=== PATIENT | female | born 1975 | race Caucasian/White ===

== ENCOUNTER → 2019-09-01 | Outpatient (CLI) | payer OTHER, SELFPAY ==
[2019-07-14 11:18] VITALS: BMI 34.7
[2019-09-01 13:05] LABS: T4 Free Direct 1.35 ng/dL (0.76-1.46); Thyroid Stim Hormone (TSH) 0.14 uIU/mL (0.358-3.74)
== END | disposition home or self-care (01) ==
LOC: LAB 12:03
PROVIDERS: PCP Family Medicine; Referring Provider Internal Medicine Endocrinology, Diabetes & Metabolism; Visit Provider Internal Medicine Endocrinology, Diabetes & Metabolism
DX: E89.0 Postprocedural hypothyroidism (principal)
CPT/HCPCS: 36415; 84439; 84443

== ENCOUNTER → 2021-11-14 | Outpatient (CLI) | payer MEDICAID, SELFPAY ==
--- NOTE | 2021-11-14 14:32 | BI_ITS ---
MAMMOGRAPHY - UNILATERAL DIAGNOSTIC: LEFT BREAST REASON FOR EXAM: Female, 46 years old. ABN MAMM PERTINENT HISTORY: Non-contributory. TECHNIQUE: Digital examination. Mediolateral oblique (MLO) and craniocaudad (CC) views of the breast were obtained. CAD: CAD was not performed on this study. COMPARISON: 11/09/2021, 11/01/2020 FINDINGS: Breast Composition: The breasts are heterogeneously dense, which may obscure small masses. Focal compression views do not confirm a mass in the upper outer quadrant left breast most consistent with normal breast parenchyma. No other significant abnormalities are identified. BI/DIAG MAMM W/CAD, UNILAT IMPRESSION: Stable unilateral diagnostic mammogram. ASSESSMENT CATEGORY: BIRADS Category 1: Negative. A letter regarding these results will be sent to the patient by the facility within 30 days. FOLLOW-UP RECOMMENDATION: Yearly follow-up mammogram recommended. (A) Approximately 10% of breast cancers are not detected by mammography. A normal mammogram should not delay biopsy of a clinically suspicious abnormality. Electronically Signed: Ruddy Carr MD at 15:06 EDT ,
== END | disposition home or self-care (01) ==
PROVIDERS: Visit Provider Obstetrics & Gynecology
DX: R92.2 Inconclusive mammogram (principal)
CPT/HCPCS: 77065

== ENCOUNTER 2024-08-29 13:44 | Inpatient (IN) | payer MEDICAID, SELFPAY ==
[2024-08-29] VITALS (16 sets, daily range): BP systolic 107–160; BP diastolic 70–117; PULSE 84–138; RESP 16–20; TEMP 36.2–39.1; O2SAT 94–100; BMI 36.9; BMI 38.1
--- NOTE | 2024-08-29 15:09 | CT_ITS ---
PROCEDURE: ABDOMEN/PELVIS W IV CONT ONLY REASON FOR EXAM: Fever. Generalized body aches. Patient is not feeling. TECHNIQUE: Abdomen and pelvis CT with intravenous contrast. IV CONTRAST: COMPARISON: None. FINDINGS: Lung bases: Clear Liver: Diffuse fatty infiltration. Gallbladder: Gallstones. Mildly dilated central intrahepatic biliary ducts. Question gallstone in the neck of the gallbladder. Correlation with the ultrasound of the gallbladder recommended. Spleen: Unremarkable. Pancreas: Unremarkable. Adrenals: Unremarkable. Kidneys: Unremarkable. Bladder: Unremarkable. Reproductive Organs: Small follicles are seen in both ovaries. A nabothian cyst is seen in the uterine cervix. Bowel: Unremarkable. Appendix: Normal. Lymph nodes: No suspicious lymph node enlargement. Vasculature: Major vascular structures are unremarkable. Peritoneum / Retroperitoneum: No ascites. No free air. Bones: Unremarkable. CT/Abdomen/Pelvis W IV Cont ONLY IMPRESSION: Gallstones. Possible gallstone in the neck of the gallbladder. Mild degree of central intrahepatic biliary ductal dilatation. Correlation wit h ultrasound recommended for further evaluation. Fatty infiltration of the liver. One or more dose reduction techniques were used (e.g., Automated exposure contr ol, adjustment of the mA and/or kV according to patient size, use of iterative reconstruction technique). Reading Location: [facility]
--- NOTE | 2024-08-29 15:12 | EDS_ITS ---
HPI History of Present Illness Chief Complaint: General Illness Informant: patient Narrative Narrative: Sent here after seeing PCP office. Patient reports beginning of illness 2 weeks ago grandson diagnosed RSV. She has had sinus congestion. Symptoms of upper r espiratory were started to improve. This past Sunday increased severe pain across her upper abdomen. Nausea when she eats. No vomiting no diarrhea no urinary symptoms however states recent urines a lot more dark in color she is taking less p.o. intake. Seeing her doctor today states had a fever tachycardic. Started having a cough. Still has upper abdominal pain that goes to her back. Denies alcohol history. Denies any abdominal surgeries. Father had pancreatic cancer. Allergies to chlorhexidine and penicillin. Prior similar symptoms: No PFSH PFSH Medical History (Updated 08/29/24 @ 23:[address] Scot Gonzalez DO) PCOS (polycystic ovarian syndrome) Migraine headache Home Medications ?Medication ?Instructions ?Recorded ?Last Taken ?Type thyroid (pork) 60 mg tablet 60 mg PO DAILY 08/23/20 History ([place] Thyroid) cholecalciferol (vitamin D3) 1 tab PO DAILY 08/29/24 U nknown History levothyroxine 25 mcg tablet 25 mcg PO SUTUWETHSA 08/2908/29/24 History magnesium citrate 125 mg capsule 250 mg PO QHS 5 Unknown History metformin 500 mg tablet 500 mg PO DAILY 08/29/24 Unk nown History Allergy/AdvReac Type Severity Reaction Status Date / Time Penicillins Allergy Intermediate Hives Verified 08/30/20 13:09 chlorhexidine Allergy Mild Rash Verified 08/30/20 13:09 Family History Other Cancer Diabetes Heart disease Hypertension Surgical History History of lobectomy of thyroid Social History household members: spouse housing: house Smoking Status: Never smoker ROS ROS ED Constitutional Constitutional ED: Reports fever(s); Denies chills or sweats ENT ENT ED: Denies sore throat Cardiovascular Cardiovascular: Denies chest pain, leg edema, palpitations or racing heartbeat Respiratory/Chest Respiratory/Chest: Reports cough; Denies dyspnea or dyspnea on exertion Gastrointestinal Gastrointestinal: Reports abdominal pain and nausea; Denies diarrhea or vomiting Genitourinary Genitourinary ED: Denies dysuria, hematuria or urinary frequency Musculoskeletal Musculoskeletal: Reports back pain; Denies extremity pain or neck pain Integumentary Denies rash or wounds Neurologic Neurologic: Denies headache(s), paresthesias or weakness EXAM Physical Exam Const Vital Signs: 08/29/24 13:45 08/29/24 15:31 08/29/24 17:44 Temperature 102.4 F H Temperature Source Temporal Pulse Rate 138 H 100 Respiratory Rate 17 Respiratory Effort Normal Non-Labored Respiratory Pattern Normal Blood Pressure 160/93 H 118/79 Blood Pressure Mean 115 92 Blood Pressure Source Blood Pressure Position Blood Pressure Location Pulse Ox 100 94 Oxygen Delivery Method Room Air 08/29/24 18:21 Temperature Temperature Source Pulse Rate 106 H Respiratory Rate 16 Respiratory Effort Respiratory Pattern Blood Pressure 111/78 Blood Pressure Mean 89 Blood Pressure Source Monitor Blood Pressure Position Supine Blood Pressure Location Left Arm Pulse Ox 94 Oxygen Delivery Method Room Air Positive well nourished and well developed Constitutional Narrative: Nontoxic fatigued General Appearance ED: well developed HEENT Reports dry mucous membranes normocephalic and atraumatic Mouth ED: Yes dry mucous membranes Mouth: dry mucous membranes Eyes General Eye ED: Yes normal appearance of both eyes Neck full ROM Chest Wall Chest: Negative for tenderness Resp normal respiratory effort and normal air movement Effort and Inspection: symmetric chest movement; Negative for respiratory distress Cardio regular rhythm and no murmurs Rate: tachycardic Peripheral Pulses: pulses 2+ throughout GI GI Narrative: Tender palpation epigastrium mild tenderness right upper quadrant. There is no guarding or rebound. Negative McBurney's. No lower abdominal tenderness. Palpation: Negative for guarding or rebound tenderness present Extremity normal to inspection General Extremety ED: Negative for edema or tenderness General Extremity: Negative for edema Neuro oriented x3 and no sensory deficits noted Sensorium / Orientation: awake and alert Skin no rashes or lesions noted and no wounds MDM MDM MDM Narrative Medical decision making narrative: Interventions / MDM: Differential diagnosis: Choledocholithiasis, symptomatic cholelithiasis, abdominal pain, RSV Diagnosis considered but do not suspect: Pneumonia however chest x-ray negative. My EKG interpretation: Sinus rate of 123, [place] pattern noted in V1 V2. No T wave changes. Imaging independently reviewed and interpreted by myself: 2 view chest x-ray: No acute process. CT abdomen pelvis: Gallstones concern in the neck with intrahepatic duct dilatation. RUQ US: Gallstones, common bile duct 8 mm. No cholecystitis. External documents reviewed: N/A Test considered but not ordered:N/A ED course: Patient febrile tachycardic. More symptoms upper abdomen. Slight cough. Nursing protocol obtain nasal swabs which she was RSV positive. However concerning symptoms reviewed abdominal pain today. Sepsis labs were ordered. Chest x-ray CT abdomen. Ordered for morphine Zofran fluids along with Tylenol. 1620: White count 13 elevated liver enzymes with elevated bilirubin. Lactic acid 1.6. Lipase normal. CT scan gallstones with 1 in the neck. Concerns for central intrahepatic biliary duct dilatation. Gallbladder ultrasound ordered for further evaluation. She fever with obstructive process white count 13.5, allergic to penicillin Levaquin and Flagyl IV started for coverage. Will plan for admission. 1715: Ultrasound reviewed by myself concerns for 8 and half millimeter duct dilatation there is gallstones. I did speak with GI Dr. Waller, concerns with her fever of cholangitis choledocholithiasis. Will keep her n.p.o. he will evaluate the patient for possible ERCP tonight. In addition I spoke with general surgeon Dr. Burgos made aware of patient's history and findings and GI plans. Will speak with hospitalist. Patient's pain is controlled at this time. Urine did note nitrites leukocytes and white cells 5-10 per urine culture p ending. She only reports dark urine no dysuria or frequency. Discussed with Dr. La for admission. Re-evaluation: stable Disposition discussed with patient/family/significant other: Patient Case discussed with consulting clinician: Gastroenterology, general surgery, hospitalist This note was generated with Communicado dictation software. It may contain incorrect words, spelling, and punctuation that were not noted in checking the note before signing. Lab Data Attestation: I reviewed the patient's lab results. Labs: Laboratory Results - last 24 hr 08/29/24 08/29/24 15:11 16:26 WBC 13.5 H RBC 5.33 Hgb 14.6 Hct 44.1 MCV 82.7 MCH 27.4 MCHC 33.1 RDW Std Deviation 38.4 RDW Coeff of Fabio 12.8 Plt Count 202 MPV 10.7 Immature Gran % (Auto) 0.600 Neut % (Auto) 93.9 H Lymph % (Auto) 2.0 L [place] % (Auto) 3.3 Eos % (Auto) 0.0 Baso % (Auto) 0.2 Absolute Neuts (auto) 12.6 H Absolute Lymphs (auto) 0.27 L Nucleated RBC % 0 PT 13.5 INR 1.0 APTT 27.9 Sodium 134 Potassium 3.9 Chloride 99 Carbon Dioxide 20.2 L Anion Gap 14 BUN 8 Creatinine 0.74 Estim Creat Clear Calc 95.78 Est GFR (MDRD) Non-Af 99 BUN/Creatinine Ratio 10.3 Glucose 175 H Lactic Acid 1.6 Calcium 9.0 Total Bilirubin 4.42 H Direct Bilirubin 2.99 H AST 250 H ALT 628 H Alkaline Phosphatase 266 H Total Protein 7.4 Albumin 4.3 Globulin 3.2 Lipase 13 Urine Color Straw Urine Clarity Clear Urine pH 6.0 Ur Specific [place] 1.010 Urine Protein 30 H Urine Glucose (UA) Normal Urine Ketones 50 H Urine Occult Blood 25 H Urine Nitrite Positive H Urine Bilirubin 6 H Urine Urobilinogen 8 H Ur Leukocyte Esterase 25 H Urine RBC 0-5 SEEN Urine WBC 5-10 SEEN Ur Squamous Epith Cells 0-5 SEEN Urine Bacteria 1+ Urine Mucus RARE Urine Test Negative Radiography Diagnostic Testing: Clinical Impression(s) from Imaging Studies Abdomen/Pelvis CT 08/29/24 15:09 IMPRESSION: Gallstones. Possible gallstone in the neck of the gallbladder. Mild degree of central intrahepatic biliary ductal dilatation. Correlation with ultrasound recommended for further evaluation. Fatty infiltration of the liver. One or more dose reduction techniques were used (e.g., Automated exposure control, adjustment of the mA and/or kV according to patient size, use of iterative reconstruction technique). Reading Location: [id number] Chest X-Ray 08/29/24 16:00 IMPRESSION: No acute abnormality is seen. Reading Location: [id number] Gallbladder Ultrasound 08/29/24 16:08 IMPRESSION: 1. Distended gallbladder with cholelithiasis. No pericholecystic fluid or significant wall thickening. Mildly dilated common bile duct measuring 8 mm. Consider MRCP for further assessment if indicated. 2. Hepatic steatosis. 3. Nonspecific hypoechoic lesion in the right hepatic lobe, not a simple cyst. Recommend further evaluation with nonemergent contrast-enhanced MRI. Reading Location[facility] Discharge Plan Dx/Rx/DC Orders Clinical Impression: Ascending cholangitis, Obstructive jaundice, Cholelithiasis, Choledocholithiasis Disposition Disposition: Acute Care Hospital [facility] Discharge Date/Time: 08/29/24 21:07
[2024-08-29 15:32] LABS: Absolute Lymphocyte Count 0.27 X10^3/uL (0.83-4.51); Absolute Neutrophil Count 12.6 X10^3/uL (2.0-7.7); Basophil# 0.03 X10^3/uL; Basophil% 0.2 % (0-1); Hematocrit 44.1 % (37-47); Hemoglobin 14.6 g/dL (12.0-15.0); Lymphocyte # 0.27 X10^3/ul (0.83-4.51); Mean Corp Hgb Conc 33.1 g/dL (32-36); Mean Corpuscular Hgb 27.4 pg (27.0-32.0); Mean Corpuscular Volume 82.7 fL (81-99); Mean Platelet Vol. 10.7 fl (6.2-12.0); Monocyte# 0.45 X10^3/uL; Monocyte% 3.3 % (0-10); NRBC Flagged by Analyzer 0 % (0-5); Neutrophil # 12.63 X10^3/uL (2.7-7.7); Neutrophil % 93.9 % (47-70); POSITIVE DIFFERENTIAL YES; Platelet Count 202 K/mm3 (150-450); RBC Distribution Width CV 12.8 % (11.6-14.6); RBC Distribution Width SD 38.4 fl (35.1-43.9); Red Blood Count 5.33 M/mm3 (4.2-5.4); White Blood Count 13.5 K/mm3 (4.4-11.0)
[2024-08-29] MEDS: Acetaminophen 500 MG Tablet 1000 MG PO (15:35)
[2024-08-29] MEDS: 0.9% Normal Saline (1000mL) 1,000 ML 999 ML IV (15:35)
[2024-08-29] MEDS: Morphine 4 MG/ML Syringe IV (15:36)
[2024-08-29] MEDS: Ondansetron 4 MG/2 ML Vial IV (15:36)
[2024-08-29 15:55] LABS: AST(SGOT) 250 U/L (<=31); Alanine Aminotransfer ALT/SGPT 628 U/L (<=34); Albumin, Serum 4.3 g/dL (3.5-5.0); Alkaline Phosphatase 266 U/L (35-104); Anion Gap 14 (5-15); BUN 8 mg/dL (4-19); BUN/Creat Ratio 10.3 RATIO (10-20); Bilirubin, Direct 2.99 mg/dL (0.00-0.30); Carbon Dioxide 20.2 mmol/L (21.0-32.0); Chloride 99 mmol/L (98-108); Creatinine, Serum 0.74 mg/dL (0.70-1.20); EST Glomerular Filtration Rate 99 (>60); Estimated Creatinine Clearance 95.78 ml/min (50-250); Globulin 3.2 g/dL (2.2-4.2); Glucose 175 mg/dL (70-99); Lactic Acid 1.6 mmol/L (0.0-2.0); Lipase 13 U/L (13-75); Potassium 3.9 mmol/L (3.3-5.1); Protein, Total 7.4 g/dL (5.9-8.4); Sodium Level 134 mmol/L (133-145); Total Bilirubin 4.42 mg/dL (0.00-1.30)
--- NOTE | 2024-08-29 16:00 | RAD_ITS ---
PROCEDURE: CHEST PA AND LATERAL REASON FOR EXAM: Cough. TECHNIQUE: Frontal and lateral views of the chest. COMPARISON: None. FINDINGS: The heart is nonenlarged. The lungs are clear. The bones are unremarkable. RAD/Chest PA and Lateral IMPRESSION: No acute abnormality is seen. Reading Location: [id number]
--- NOTE | 2024-08-29 16:08 | US_ITS ---
PROCEDURE: Right upper quadrant ultrasound REASON FOR EXAM: Pain COMPARISON: Same day CT FINDINGS: Mildly distended gallbladder. Diffuse increased hepatic echogenicity most consistent with steatosis. Ovoid hypoechoic lesion in the right hepatic lobe measuring up to 2.7 cm. Distended gallbladder with multiple calculi. No significant gallbladder wall thickening or pericholecystic fluid. Mildly dilated common bile duct measuring 8 mm. Visualized portions of the pancreas and right kidney are within normal limits. US/Gallbladder IMPRESSION: 1. Distended gallbladder with cholelithiasis. No pericholecystic fluid or sign ificant wall thickening. Mildly dilated common bile duct measuring 8 mm. Consider MRCP for further assessment if indicated. 2. Hepatic steatosis. 3. Nonspecific hypoechoic lesion in the right hepatic lobe, not a simple cyst. Recommend further evaluation with nonemergent contrast-enhanced MRI. Reading Location: [facility]
[2024-08-29 16:09] LABS: Partial Thromboplast Time 27.9 Seconds (24.1-36.2); Prothrombin Time (Protime)PT. 13.5 SECONDS (11.7-14.9)
[2024-08-29 16:41] LABS: Color, Urine Straw (Yellow); Glucose, Dipstick Normal (Normal); Ketone-Dipstick 50 mg/dl (Negative); Leukocyte Esterase-Dipstick 25 /ul (Negative); Nitrite-Dipstick Positive (Negative); Occult Blood-Urine 25 /ul (Negative); Protein-Dipstick 30 mg/dl (Negative); Urine Clarity Clear (Clear); Urine Urobilinogen 8 mg/dl (Normal)
[2024-08-29 16:44] LABS: Urine Bilirubin Dipstick 6 mg/dL (Negative)
[2024-08-29] MEDS: metroNIDAZOLE 500 MG/100 ML BAG 100 MG IV (17:00)
--- NOTE | 2024-08-29 17:43 | PCM.HP.STD ---
HPI - General General Date of Admission: 08/29/24 Date of Service: 08/29/24 Chief Complaint: Severe upper abdominal pain with nausea and fevers, URI symptoms HPI Narrative CHERYL MARROQUIN, is a 48 F who presented to [facility] ED on 09/16 with multiple concerns including recent URI symptoms and intermittent episodes of severe upper abdominal pain radiating to the back with nausea and new onset fevers. Patient's grandson was diagnosed with RSV about 2 weeks ago and she began having URI symptoms recently that she attributed to likely RSV. However, 2 days ago she had an episode of severe upper abdominal pain with nausea. Since then she has continued to have nausea and has not developed fairly persistent upper abdominal pain radiating to the back and fevers with chills. She was found to be RSV positive in the ED. CT abdomen pelvis showed gallstones, possible gallstone in the neck of the gallbladder and mild degree of central intrahepatic biliary ductal dilation. Gallbladder ultrasound showed a distended gallbladder with cholelithiasis and mildly dilated common bile duct concerning for choledocholithiasis. Given these findings, ED physician discussed case with both Dr. Waller and Dr. Burgos. Dr. Waller saw the patient at bedside and had concern for acute cholangitis secondary to choledocholithiasis and determined to take the patient to endoscopy for ERCP this evening. Dr. Burgos also saw the patient and is recommending cholecystectomy sometime prior to discharge. Hospitalist was then contacted for admission. I saw the patient at bedside in the ED, and son were present. Patient was mildly fatigued appearing but otherwise laying back fairly comfortably in bed and conversing normally. She stated her pain was much improved from earlier with pain medication. She denied any fevers or chills currently. Denied any nausea. No other acute concerns this time. [facility] Medical History PCOS (polycystic ovarian syndrome) Migraine headache Home Medications ?Medication ?Instructions ?Recorded ?Last Taken ?Type thyroid (pork) 60 mg tablet 60 mg PO DAILY 08/23/20 08/29/24 History ([place] Thyroid) cholecalciferol (vitamin D3) 1 tab PO DAILY 08/29/24 Unknown History levothyroxine 25 mcg tablet 25 mcg PO SUTUWETHSA 08/29/24 08/29/24 History magnesium citrate 125 mg capsule 250 mg PO QHS 08/29/24 Unknown History metformin 500 mg tablet 500 mg PO DAILY 08/29/24 Unknown History Allergy/AdvReac Type Severity Reaction Status Date / Time Penicillins Allergy Intermediate Hives Verified 08/30/20 13:09 chlorhexidine Allergy Mild Rash Verified 08/30/20 13:09 Family History Other Cancer Diabetes Heart disease Hypertension Surgical History History of lobectomy of thyroid Social History household members: spouse housing: house Smoking Status: Never smoker ROS Constitutional Constitutional: Reports chills and fever(s); Denies fatigue or weakness Eyes Eyes: Denies change in vision Cardiovascular Cardiovascular: Denies chest pain Respiratory/Chest Respiratory/Chest: Denies cough or shortness of breath at rest Gastrointestinal Gastrointestinal: Reports abdominal pain, nausea and vomiting; Denies constipation or diarrhea Musculoskeletal Musculoskeletal: Reports back pain; Denies arthralgias or myalgias Vital Signs Vital Signs Vital Signs: 08/29/24 13:45 08/29/24 15:31 Temperature 102.4 F H Temperature Source Temporal Pulse Rate 138 H Respiratory Rate 17 Respiratory Effort Normal Non-Labored Respiratory Pattern Normal Blood Pressure 160/93 H Blood Pressure Mean 115 Pulse Ox 100 Oxygen Delivery Method Room Air Weight Weight: 91.626 kg Body Mass Index (BMI) 36.9 Physical Exam Const alert, oriented x3 and no apparent distress Constitutional Narrative: Middle-age female, class II obesity, mildly fatigued appearing but otherwise laying back comfortably in bed, conversing normally, in no acute distress. General Appearance: cooperative and comfortable HEENT normocephalic, head/scalp atraumatic, hearing grossly normal bilaterally, nasal mucous membranes and turbinates normal and moist oral mucous membranes Eyes PERRL, EOMs intact bilaterally and conjunctivae normal Neck full ROM Chest inspection of chest normal Resp normal respiratory effort, normal air movement, no use of accessory muscles and clear to auscultation bilaterally Cardio regular rate, regular rhythm, no murmurs and peripheral pulses 2+ throughout GI GI Narrative: Mild tenderness to palpation in epigastric to right upper quadrant areas. Abdomen otherwise soft and nondistended on palpation. Back/Spine normal ROM Extremity normal to inspection, full ROM and no pedal edema Skin no rashes or lesions noted Neuro moves all extremities and no focal motor deficits Speech: speech normal Motor Exam: strength 5/5 throughout Psych mental status grossly normal Results Lab / Micro Data 08/29/24 15:11 08/29/24 15:11 Labs: Laboratory Results - last 24 hr 08/29/24 15:11: WBC 13.5 H, RBC 5.33, Hgb 14.6, Hct 44.1, MCV 82.7, MCH 27.4, MCHC 33.1, RDW Std Deviation 38.4, RDW Coeff of Fabio 12.8, Plt Count 202, MPV 10.7, Immature Gran % (Auto) 0.600, Neut % (Auto) 93.9 H, Lymph % (Auto) 2.0 L, [place] % (Auto) 3.3, Eos % (Auto) 0.0, Baso % (Auto) 0.2, Absolute Neuts (auto) 12.6 H, Absolute Lymphs (auto) 0.27 L, Nucleated RBC % 0, PT 13.5, INR 1.0, APTT 27.9, Sodium 134, Potassium 3.9, Chloride 99, Carbon Dioxide 20.2 L, Anion Gap 14, BUN 8, Creatinine 0.74, Estim Creat Clear Calc 95.78, Est GFR (MDRD) Non-Af 99, BUN/Creatinine Ratio 10.3, Glucose 175 H, Lactic Acid 1.6, Calcium 9.0, Total Bilirubin 4.42 H, Direct Bilirubin 2.99 H, AST 250 H, ALT 628 H, Alkaline Phosphatase 266 H, Total Protein 7.4, Albumin 4.3, Globulin 3.2, Lipase 13 08/29/24 16:26: Urine Color Straw, Urine Clarity Clear, Urine pH 6.0, Ur Specific [place] 1.010, Urine Protein 30 H, Urine Glucose (UA) Normal, Urine Ketones 50 H, Urine Occult Blood 25 H, Urine Nitrite Positive H, Urine Bilirubin 6 H, Urine Urobilinogen 8 H, Ur Leukocyte Esterase 25 H Micro: Microbiology 08/29/24 13:50 Mucosa - Nose SARS-CoV-2, Influenza & RSV (PCR) - Final RSV Imaging Radiology Impression Abdomen/Pelvis CT 08/29/24 15:09 IMPRESSION: Gallstones. Possible gallstone in the neck of the gallbladder. Mild degree of central intrahepatic biliary ductal dilatation. Correlation with ultrasound recommended for further evaluation. Fatty infiltration of the liver. One or more dose reduction techniques were used (e.g., Automated exposure control, adjustment of the mA and/or kV according to patient size, use of iterative reconstruction technique). Reading Location: [id number] Chest X-Ray 08/29/24 16:00 IMPRESSION: No acute abnormality is seen. Reading Location: [id number] Gallbladder Ultrasound 08/29/24 16:08 IMPRESSION: 1. Distended gallbladder with cholelithiasis. No pericholecystic fluid or significant wall thickening. Mildly dilated common bile duct measuring 8 mm. Consider MRCP for further assessment if indicated. 2. Hepatic steatosis. 3. Nonspecific hypoechoic lesion in the right hepatic lobe, not a simple cyst. Recommend further evaluation with nonemergent contrast-enhanced MRI. Reading Location: [facility] Assessment & Plan Assessment/Plan (1) Ascending cholangitis: (2) Obstructive jaundice: PLAN: Plan Patient is a 48-year-old female who presented [facility] ED on 08/29/2024 with abdominal pain with nausea, fever/chills and URI symptoms. 1. Choledocholithiasis with concern for acute cholangitis ? Admit under inpatient status to PCU. GI and general surgery consulted. CT abdomen pelvis and gallbladder ultrasound on admit showed distended gallbladder with multiple calculi and dilated common bile duct. LFTs with T. bili 4.4, direct bili 2.9, AST 250, ALT 628, alk phos 266. Fevers present on admission. No hypotension or altered mentation noted. Per GI, planning for ERCP this evening, will maintain n.p.o. status for now. Per general surgery, planning for cholecystectomy at some point during this hospitalization. Will treat with IV Levaquin and Flagyl. Given 2 L of IV fluids in the ED. Oxycodone as needed and IV morphine as needed for pain control. Monitor closely. 2. RSV infection ? Patient tested positive for RSV on admit. Mild URI symptoms noted. Chest x-ray unremarkable. Treated with symptomatic management. Contact precautions in place. 3. Hypothyroidism ? TSH low but free T4 normal on admit. Continue home Synthroid. Outpatient follow-up for dose adjustments as needed. 4. Type 2 diabetes mellitus ? On home metformin 500 mg daily. Will treat with sliding scale insulin with meals while inpatient. 5. Class II obesity ? BMI 36 on admit. Complicates hospital course, care and prognosis. DVT prophylaxis: Lovenox CODE STATUS: Full code, verified Expected disposition: Home, TBD Total clinical time spent by myself addressing the patient's medical issues, reviewing all the data, and collaborating with patient's care team: 75 minutes. Charges/Coding Visit Charges Inpatient E&M: 48951 Init Hosp L3
[2024-08-29 17:54] LABS: Internal QC Validated? YES +Cl - CLEAR BKGD; Pregnancy, Urine Negative Negative
[2024-08-29 18:19] LABS: Bacteria 1+ /hpf (None Seen); White Blood Cells 5-10 SEEN /hpf (0-5)
[2024-08-29 18:20] LABS: Mucous, Urine RARE /hpf (<or=2+); Red Blood Cells-Urine 0-5 SEEN /hpf (0-5); Squamous Epithelial Cells - UA 0-5 SEEN /hpf (5-10)
--- NOTE | 2024-08-29 18:32 | PCM.HP.STD ---
HPI - General General Date of Admission: 08/29/24 Date of Service: 08/29/24 Chief Complaint: Ascending cholangitis HPI Narrative SEPTEMBER LOPEZ, is a 48 F who presents with fever, chills, epigastric, right lower quadrant pain and back pain. She was sent here after seeing PCP office. Patient reports beginning of illness 2 weeks ago grandson diagnosed RSV. She has had sinus congestion. Symptoms of upper respiratory were started to improve. This past Sunday increased severe pain across her upper abdomen. Nausea when she eats. No vomiting no diarrhea no urinary symptoms however states recent urines a lot more dark in color she is taking less p.o. intake. Seeing her doctor today states had a fever tachycardic. Started having a cough. She still has upper abdominal pain that goes to her back. Denies alcohol history. Denies any abdominal surgeries. Father had pancreatic cancer. Allergies to chlorhexidine and penicillin. In the emergency room she was febrile to 103.4. Heart rate ranges from 120-140 and blood pressure has been ranging from 1 40-1 60 systolic /80s to 90s diastolic. 08/29/24 15:11: WBC 13.5 H, RBC 5.33, Hgb 14.6, Hct 44.1, MCV 82.7, MCH 27.4, MCHC 33.1, RDW Std Deviation 38.4, RDW Coeff of Fabio 12.8, Plt Count 202, MPV 10.7, Immature Gran % (Auto) 0.600, Neut % (Auto) 93.9 H, Lymph % (Auto) 2.0 L, [place] % (Auto) 3.3, Eos % (Auto) 0.0, Baso % (Auto) 0.2, Absolute Neuts (auto) 12.6 H, Absolute Lymphs (auto) 0.27 L, Nucleated RBC % 0, PT 13.5, INR 1.0, APTT 27.9, Sodium 134, Potassium 3.9, Chloride 99, Carbon Dioxide 20.2 L, Anion Gap 14, BUN 8, Creatinine 0.74, Estim Creat Clear Calc 95.78, Est GFR (MDRD) Non-Af 99, BUN/Creatinine Ratio 10.3, Glucose 175 H, Lactic Acid 1.6, Calcium 9.0, Total Bilirubin 4.42 H, Direct Bilirubin 2.99 H, AST 250 H, ALT 628 H, Alkaline Phosphatase 266 H, Total Protein 7.4, Albumin 4.3, Globulin 3.2, Lipase 13 08/29/24 16:26: Urine Color Straw, Urine Clarity Clear, Urine pH 6.0, Ur Specific [place] 1.010, Urine Protein 30 H, Urine Glucose (UA) Normal, Urine Ketones 50 H, Urine Occult Blood 25 H, Urine Nitrite Positive H, Urine Bilirubin 6 H, Urine Urobilinogen 8 H, Ur Leukocyte Esterase 25 H, Urine RBC 0-5 SEEN, Urine WBC 5-10 SEEN, Ur Squamous Epith Cells 0-5 SEEN, Urine Bacteria 1+, Urine Mucus RARE, Urine Test Negative CT/Abdomen/Pelvis W IV Cont ONLY IMPRESSION: Gallstones. Possible gallstone in the neck of the gallbladder. Mild degree of central intrahepatic biliary ductal dilatation. Correlation with ultrasound recommended for further evaluation. Fatty infiltration of the liver. US/Gallbladder IMPRESSION: 1. Distended gallbladder with cholelithiasis. No pericholecystic fluid or significant wall thickening. Mildly dilated common bile duct measuring 8 mm. Consider MRCP for further assessment if indicated. 2. Hepatic steatosis. 3. Nonspecific hypoechoic lesion in the right hepatic lobe, not a simple cyst. Recommend further evaluation with nonemergent contrast-enhanced MRI. [facility] Medical History (Updated 08/29/24 @ 18:[address] Boone Friend, DO) PCOS (polycystic ovarian syndrome) Migraine headache Home Medications ?Medication ?Instructions ?Recorded ?Last Taken ?Type thyroid (pork) 60 mg tablet 60 mg PO DAILY 08/23/20 08/29/24 History ([place] Thyroid) cholecalciferol (vitamin D3) 1 tab PO DAILY 08/29/24 Unknown History levothyroxine 25 mcg tablet 25 mcg PO SUTUWETHSA 08/29/24 08/29/24 History magnesium citrate 125 mg capsule 250 mg PO QHS 08/29/24 Unknown History metformin 500 mg tablet 500 mg PO DAILY 08/29/24 Unknown History Allergy/AdvReac Type Severity Reaction Status Date / Time Penicillins Allergy Intermediate Hives Verified 08/30/20 13:09 chlorhexidine Allergy Mild Rash Verified 08/30/20 13:09 Family History Other Cancer Diabetes Heart disease Hypertension Surgical History History of lobectomy of thyroid Social History household members: spouse housing: house Smoking Status: Never smoker ROS Constitutional Constitutional: Denies fatigue, fever(s), poor appetite, weight gain or weight loss Gastrointestinal Gastrointestinal: Denies belching, bloating, change in bowel habits, change in stool character, chewing difficulty, coffee ground emesis, constipation, cramping, diarrhea, dyspepsia, dysphagia, early satiety, excessive flatus, fecal incontinence, heartburn, hematemesis, hematochezia, hemorrhoids, loose stools, melena, nausea, odynophagia, rectal bleeding, tenesmus, vomiting or weight changes Vital Signs Vital Signs Vital Signs: 08/29/24 13:45 08/29/24 15:31 08/29/24 17:44 Temperature 102.4 F H Temperature Source Temporal Pulse Rate 138 H 100 Respiratory Rate 17 Respiratory Effort Normal Non-Labored Respiratory Pattern Normal Blood Pressure 160/93 H 118/79 Blood Pressure Mean 115 92 Pulse Ox 100 94 Oxygen Delivery Method Room Air Weight Weight: 202 lb Body Mass Index (BMI) 36.9 Physical Exam Const alert, oriented x3, no apparent distress and healthy appearing General Appearance: cooperative GI normal to inspection, nondistended, normoactive bowel sounds, soft to palpation, non-tender and non-distended Percussion: normal to percussion Rectal Exam: deferred Results Lab / Micro Data 08/29/24 15:11 08/29/24 15:11 Labs: Laboratory Results - last 24 hr 08/29/24 15:11: WBC 13.5 H, RBC 5.33, Hgb 14.6, Hct 44.1, MCV 82.7, MCH 27.4, MCHC 33.1, RDW Std Deviation 38.4, RDW Coeff of Fabio 12.8, Plt Count 202, MPV 10.7, Immature Gran % (Auto) 0.600, Neut % (Auto) 93.9 H, Lymph % (Auto) 2.0 L, [place] % (Auto) 3.3, Eos % (Auto) 0.0, Baso % (Auto) 0.2, Absolute Neuts (auto) 12.6 H, Absolute Lymphs (auto) 0.27 L, Nucleated RBC % 0, PT 13.5, INR 1.0, APTT 27.9, Sodium 134, Potassium 3.9, Chloride 99, Carbon Dioxide 20.2 L, Anion Gap 14, BUN 8, Creatinine 0.74, Estim Creat Clear Calc 95.78, Est GFR (MDRD) Non-Af 99, BUN/Creatinine Ratio 10.3, Glucose 175 H, Lactic Acid 1.6, Calcium 9.0, Total Bilirubin 4.42 H, Direct Bilirubin 2.99 H, AST 250 H, ALT 628 H, Alkaline Phosphatase 266 H, Total Protein 7.4, Albumin 4.3, Globulin 3.2, Lipase 13 08/29/24 16:26: Urine Color Straw, Urine Clarity Clear, Urine pH 6.0, Ur Specific [place] 1.010, Urine Protein 30 H, Urine Glucose (UA) Normal, Urine Ketones 50 H, Urine Occult Blood 25 H, Urine Nitrite Positive H, Urine Bilirubin 6 H, Urine Urobilinogen 8 H, Ur Leukocyte Esterase 25 H, Urine RBC 0-5 SEEN, Urine WBC 5-10 SEEN, Ur Squamous Epith Cells 0-5 SEEN, Urine Bacteria 1+, Urine Mucus RARE, Urine Test Negative Micro: Microbiology 08/29/24 13:50 Mucosa - Nose SARS-CoV-2, Influenza & RSV (PCR) - Final RSV Imaging Radiology Impression Abdomen/Pelvis CT 08/29/24 15:09 IMPRESSION: Gallstones. Possible gallstone in the neck of the gallbladder. Mild degree of central intrahepatic biliary ductal dilatation. Correlation with ultrasound recommended for further evaluation. Fatty infiltration of the liver. One or more dose reduction techniques were used (e.g., Automated exposure control, adjustment of the mA and/or kV according to patient size, use of iterative reconstruction technique). Reading Location: [id number] Chest X-Ray 08/29/24 16:00 IMPRESSION: No acute abnormality is seen. Reading Location: [id number] Gallbladder Ultrasound 08/29/24 16:08 IMPRESSION: 1. Distended gallbladder with cholelithiasis. No pericholecystic fluid or significant wall thickening. Mildly dilated common bile duct measuring 8 mm. Consider MRCP for further assessment if indicated. 2. Hepatic steatosis. 3. Nonspecific hypoechoic lesion in the right hepatic lobe, not a simple cyst. Recommend further evaluation with nonemergent contrast-enhanced MRI. Reading Location: [facility] Assessment & Plan Assessment/Plan (1) Ascending cholangitis: (2) Hepatic lesion: (3) Obstructive jaundice: PLAN: 48-year-old close significant past medical history arrives to the near with abdominal pain and darkening urine. She was discovered to have jaundiced a cholestatic hepatitis and with imaging displaying dilated common bile duct on CT scan and ultrasound along with intrahepatic ductal dilation. There is a high suspicion for ascending cholangitis secondary to choledocholithiasis. Recommend emergent ERCP. She was explained alternatives, risk, benefits including not withstanding bleeding, infection, sepsis, perforation, need for emergent surgery and . She was also explained the risk of post ERCP pancreatitis. She will have an ASA 3. Charges/Coding Visit Charges Inpatient E&M: 39889 Init Hosp L3
--- NOTE | 2024-08-29 18:51 | PCM.PRE.AN2 ---
ASA Classification* ASA Classification ASA Classification: 2 and E Assessment & Plan Anesthesia* Anesthesia Assessment Anesthesia Assessment: Discussed sedation and/or anesthesia options, risks, benefits, and alternatives with patient/parents/legal guardian/POA. Questions invited. The patient/parents/legal guardian/POA seems to understand and agrees to proceed with anesthesia plan. Reviewed the physical assessment, medical history, allergy history and patient home medications list prior to surgery/procedure/anesthetic and documented any changes. Performed airway and anesthesia risk assessments. Anesthesia Type Anesthesia Type: General Anesthesia Focused Assessment* Temperature: 98.7 F Pulse Rate: 106 Blood Pressure: 111/78 Respiratory Rate: 16 Pulse Ox: 94 Airway Assessment Mouth opens: >3 cm Mallampati Score: II Focused Labs Anesthesia Preop lab: CBC WBC 13.5 K/mm3 (4.4-11.0) H 08/29/24 15:11 08/29/24 RBC 5.33 M/mm3 (4.2-5.4) 08/29/24 15:11 08/29/24 Hgb 14.6 g/dL (12.0-15.0) 08/29/24 15:11 08/29/24 Hct 44.1 % (37-47) 08/29/24 15:11 08/29/24 Plt Count 202 K/mm3 (150-450) 08/29/24 15:11 08/29/24 CHEMISTRY Potassium 3.9 mmol/L (3.3-5.1) 08/29/24 15:11 08/29/24 Sodium 134 mmol/L (133-145) 08/29/24 15:11 08/29/24 BUN 8 mg/dL (4-19) 08/29/24 15:11 08/29/24 Creatinine 0.74 mg/dL (0.70-1.20) 08/29/24 15:11 08/29/24 Glucose 175 mg/dL (70-99) H 08/29/24 15:11 08/29/24 TSH 0.14 uIU/mL (0.358-3.74) L 09/01/19 12:06 09/01/19 COAG PT 13.5 SECONDS (11.7-14.9) 08/29/24 15:11 08/29/24 Urine Test Negative Negative 08/29/24 16:26 08/29/24 Pre-Assessment Diagnosis/Proposed Procedure Planned Operative Procedure(s): ERCP Anesthesia History Anesthesia History - nurse manager: Anesthesia History - nurse manager Hx Hospitalization Any Problems With Anesthesia No 08/29/24 18:21 Cholinesterase deficiency No 08/29/24 18:21 You/Your Family Experience No 08/29/24 18:21 fever (hyperthermia) with Relationship Recent Exposure to Contagious No 08/29/24 18:21 Disease Does patient have nerve No 08/29/24 18:21 stimulator Patient instructed to have device shut off --Does patient have Pacemaker No 08/29/24 18:21 or ICD? When Was Last Pacemaker Check QUESTION #4 FULL TEXT: You/Your Family Experience fever (hyperthermia) with Anesthesia Last Oral Intake Last Oral intake: Last Oral Intake NPO since 14:30 08/29/24 18:21 Meds taken in AM with sips of water? Meds patient instructed to take am of surgery PONV PONV - nurse manager: PONV - nurse manager Female HX of Motion Sickness HX of N/V After Surgery Non-Smoker Duration of Surgery greater than 60 minutes Number of Risk Factors PONV Score Height & Weight Height & Weight: Anesthesia: Height & Weight Height 5 ft 2 in 08/29/24 18:21 Weight: 91.626 kg 08/29/24 18:21 Body Mass Index (BMI) 36.9 08/29/24 18:21 Respiratory Assessment Respiratory Assessment - nurse manager: Respiratory Tract Infection Hx - nurse manager Hx Respiratory Tract Infection Yes 08/29/24 18:21 STOP Sleep Apnea STOP Sleep Apnea - nurse manager: STOP Sleep Apnea - nurse manager Hx Hypertension No 08/29/24 18:21 Hx Sleep Apnea No 08/29/24 18:21 CPAP BIPAP Do you snore loudly (louder No 08/29/24 18:21 than talking or can be heard Do you often feel tired/ No 08/29/24 18:21 fatigued/ sleepy during daytime? Has anyone observed you stop No 08/29/24 18:21 breathing during sleep? STOP Results Negative 08/29/24 18:21 QUESTION #5 FULL TEXT : Do you snore loudly (louder than talking or can be heard through closed doors)? Tobacco Use History Tobacco Use History - nurse manager: Tobacco Use History - nurse manager Tobacco Use Smoking Status Never smoker 08/29/24 15:31 Hx Tobacco Use Years Smoking Packs Smoked per Day Smoking Cessation Date was within the last 15 years Hx Smoking Cessation Date Hx Smoking Cessation Counseling Hematologic Medial History Hematologic Hx - nurse manager: Hematologic Medical Hx - direct mail marketer Hx of Blood Transfusion Hx of Transfusion in last 3 Months Date of Last Transfusion (if within last 3 months) Ever experience any problems with transfusion(s)? Specify any problems Hx of Preganancy in last 3 Months Nurse Filling Out Transfusion & Questions: Date: Time: Patient unable to answer at this time (ie. confused, unrespo /Reproduction History /Reproductive History - nurse manager: /Reproductive Hx- nurse manager Hx Now No 08/29/24 18:21 Gestational Age (in weeks): EDC: Hx Hx Para Hx Section SAB No 08/29/24 18:21 PFS Medical History PCOS (polycystic ovarian syndrome) Migraine headache Home Medications ?Medication ?Instructions ?Recorded ?Last Taken ?Type thyroid (pork) 60 mg tablet 60 mg PO DAILY 08/23/20 08/29/24 History ([place] Thyroid) cholecalciferol (vitamin D3) 1 tab PO DAILY 08/29/24 Unknown History levothyroxine 25 mcg tablet 25 mcg PO SUTUWETHSA 08/29/24 08/29/24 History magnesium citrate 125 mg capsule 250 mg PO QHS 08/29/24 Unknown History metformin 500 mg tablet 500 mg PO DAILY 08/29/24 Unknown History Allergy/AdvReac Type Severity Reaction Status Date / Time Penicillins Allergy Intermediate Hives Verified 08/30/20 13:09 chlorhexidine Allergy Mild Rash Verified 08/30/20 13:09 Family History Other Cancer Diabetes Heart disease Hypertension Surgical History History of lobectomy of thyroid Social History household members: spouse housing: house Smoking Status: Never smoker Review of Systems (Anesthesia) ROS Narrative System reviewed and no additional complaints, except as documented.
--- NOTE | 2024-08-29 19:25 | EX.PCM.CON.S ---
Assessment & Plan Assessment/Plan (1) Obstructive jaundice: PLAN: Patient is 48-year-old female with apparent cholangitis and obstructive jaundice?likely owing to a underlying diagnosis of choledocholithiasis. Patient is pending ERCP with gastroenterology. Will await findings of this study as well as patient's clinical response to this intervention. I did discuss with patient that I would plan for same?admission laparoscopic cholecystectomy with intraoperative cholangiography to mitigate her risk for further issues from gallstones. Procedure was described in detail. I suggested that we follow-up tomorrow and be sure she responds appropriately. In the event that patient is clinically ready for surgery would recommend keeping her n.p.o. past midnight. Deacon Burgos MD General Surgery Endocrine Surgery Pager: [facility] [address] [place] [address], [address] [place] [id number] Office: [phone] HPI Consult Data Date of Consult: 08/29/24 HPI Narrative Reason for Consultation: Choledocholithiasis with cholangitis HPI Narrative: CHERYL MARROQUIN, is a 48 F who presents to [facility] emergency department on direction from her PCP office after presenting there for a myriad of symptoms. She notes recently her grandchild was diagnosed with RSV and she suspected that she had fallen ill with this condition but was never formally tested. She then reports on 08/27/2024 she awoken with a sharp pain in her stomach. She states the pain was so intense that had her doubled over and she felt sweaty but when checking her temperature she found she was afebrile. She notes taking some antacids to try to improve the pain but she generally had a poor appetite. She was not seen that day but reports feeling rundown yesterday with somewhat less abdominal pain. She reports she did have some darker colored urine but this was attributed to a relative dehydrated status. She then woke this morning with severe back pain which she attributed to vigorous coughing. With this back pain and some associated chills she sought a sick visit with her PCP where she saw a nurse practitioner who commented they felt that she had some fluid buildup in her ears and recommended overall conservative treatment but expressed concern about her returning home. Patient's evaluation in the ER included biochemical evaluation with laboratories including CMP that showed transaminitis and hyperbilirubinemia with a T. bili of 4.42. CBC demonstrated leukocytosis with left shift. Initially CT imaging of the abdomen pelvis was obtained that showed gallbladder with some gallstones (1 possibly located in the neck) but more prominently there was a dilated common bile duct and some evidence of diffuse fatty liver infiltration. Given patient's laboratories and the finding of a dilated common bile duct ultrasound was performed reflexively. Once again this showed a distended gallbladder with cholelithiasis but, notably, radiology stated there is no evidence of wall thickening or pericholecystic fluid. They did note the patient's common bile duct measured 8 mm in diameter. With these findings surgery is asked to evaluate patient for possible cholecystectomy. Emergency medicine noted that they had previously contacted gastroenterology and ERCP was pending for today. Patient past medical history notable for some hypothyroidism and PCOS. Surgically?speaking patient has a history of thyroid lobectomy and more remotely a history of several sections [facility] Medical History PCOS (polycystic ovarian syndrome) Migraine headache Home Medications ?Medication ?Instructions ?Recorded ?Last Taken ?Type thyroid (pork) 60 mg tablet 60 mg PO DAILY 08/23/20 08/29/24 History ([place] Thyroid) cholecalciferol (vitamin D3) 1 tab PO DAILY 08/29/24 Unknown History levothyroxine 25 mcg tablet 25 mcg PO SUTUWETHSA 08/29/24 08/29/24 History magnesium citrate 125 mg capsule 250 mg PO QHS 08/29/24 Unknown History metformin 500 mg tablet 500 mg PO DAILY 08/29/24 Unknown History Allergy/AdvReac Type Severity Reaction Status Date / Time Penicillins Allergy Intermediate Hives Verified 08/30/20 13:09 chlorhexidine Allergy Mild Rash Verified 08/30/20 13:09 Family History Other Cancer Diabetes Heart disease Hypertension Surgical History History of lobectomy of thyroid Social History household members: spouse housing: house Smoking Status: Never smoker Physical Exam Const alert Constitutional Narrative: Mildly distressed from abdominal discomfort, visibly jaundiced Nutritional Appearance: obese Resp normal respiratory effort GI GI Narrative: Obese, no visible scars to the upper abdomen, nondistended, soft, mildly tender across the epigastrium. Negative Lamar sign. Lab / Micro Data 08/29/24 15:11 08/29/24 15:11 Labs: Laboratory Results - last 24 hr 08/29/24 15:11: WBC 13.5 H, RBC 5.33, Hgb 14.6, Hct 44.1, MCV 82.7, MCH 27.4, MCHC 33.1, RDW Std Deviation 38.4, RDW Coeff of Fabio 12.8, Plt Count 202, MPV 10.7, Immature Gran % (Auto) 0.600, Neut % (Auto) 93.9 H, Lymph % (Auto) 2.0 L, [place] % (Auto) 3.3, Eos % (Auto) 0.0, Baso % (Auto) 0.2, Absolute Neuts (auto) 12.6 H, Absolute Lymphs (auto) 0.27 L, Nucleated RBC % 0, PT 13.5, INR 1.0, APTT 27.9, Sodium 134, Potassium 3.9, Chloride 99, Carbon Dioxide 20.2 L, Anion Gap 14, BUN 8, Creatinine 0.74, Estim Creat Clear Calc 95.78, Est GFR (MDRD) Non-Af 99, BUN/Creatinine Ratio 10.3, Glucose 175 H, Lactic Acid 1.6, Calcium 9.0, Total Bilirubin 4.42 H, Direct Bilirubin 2.99 H, AST 250 H, ALT 628 H, Alkaline Phosphatase 266 H, Total Protein 7.4, Albumin 4.3, Globulin 3.2, Lipase 13 08/29/24 16:26: Urine Color Straw, Urine Clarity Clear, Urine pH 6.0, Ur Specific [place] 1.010, Urine Protein 30 H, Urine Glucose (UA) Normal, Urine Ketones 50 H, Urine Occult Blood 25 H, Urine Nitrite Positive H, Urine Bilirubin 6 H, Urine Urobilinogen 8 H, Ur Leukocyte Esterase 25 H, Urine RBC 0-5 SEEN, Urine WBC 5-10 SEEN, Ur Squamous Epith Cells 0-5 SEEN, Urine Bacteria 1+, Urine Mucus RARE, Urine Test Negative Micro: Microbiology 08/29/24 13:50 Mucosa - Nose SARS-CoV-2, Influenza & RSV (PCR) - Final RSV Imaging Radiology Impression Abdomen/Pelvis CT 08/29/24 15:09 IMPRESSION: Gallstones. Possible gallstone in the neck of the gallbladder. Mild degree of central intrahepatic biliary ductal dilatation. Correlation with ultrasound recommended for further evaluation. Fatty infiltration of the liver. One or more dose reduction techniques were used (e.g., Automated exposure control, adjustment of the mA and/or kV according to patient size, use of iterative reconstruction technique). Reading Location: [facility] Chest X-Ray 08/29/24 16:00 IMPRESSION: No acute abnormality is seen. Reading Location: [facility] Gallbladder Ultrasound 08/29/24 16:08 IMPRESSION: 1. Distended gallbladder with cholelithiasis. No pericholecystic fluid or significant wall thickening. Mildly dilated common bile duct measuring 8 mm. Consider MRCP for further assessment if indicated. 2. Hepatic steatosis. 3. Nonspecific hypoechoic lesion in the right hepatic lobe, not a simple cyst. Recommend further evaluation with nonemergent contrast-enhanced MRI. Reading Location: [facility] Charges/Coding Visit Charges Inpatient E&M: 32746 Init Hosp L2
[2024-08-29] MEDS: levoFLOXacin IV 750 MG/150 ML BAG 100 MG IV (19:39)
--- NOTE | 2024-08-29 21:30 | RAD_ITS ---
PROCEDURE: ERCP BILIARY/PANCREAS REASON FOR EXAM: ERCP TECHNIQUE: Seven intraoperative spot view(s) from ERCP COMPARISON: None. FINDINGS: Total fluoro time 69.7 seconds Cumulative dose 18.62 mGy Images show cannulation of the common bile duct and left hepatic biliary system with instillation of contrast. A couple of filling defects are seen in the area of the upper and mid common bile duct none of which appear persistent over the images. Contrast is seen within mildly prominent intrahepatic biliary ducts. Faint contrast remains in the intra and extrahepatic ducts on the final images. RAD/ERCP Biliary/Pancreas IMPRESSION: Fluoroscopy during ERCP as above. Reading Location: [id number]
[2024-08-29] MEDS: Lactated Ringers 1,000 ML 999 ML IV (22:50)
--- NOTE | 2024-08-29 23:10 | PCM.POST.ANE ---
Anesthesia: Postop Eval I Current Vital Signs Temperature: 97 F Pulse Rate: 104 Blood Pressure: 119/74 Respiratory Rate: 20 Pulse Ox: 96 Assessment Airway patent: Yes Spontaneous unlabored respirations: Yes Mental status: Awake and Calm nausea: No Vomiting: No Anesthesia Complication: No Fluid Hydration Crystalloid volume administer (ml): 400 Total IV fluid infused: 400 Progress Note Anesthesia document: Postop Eval 1 completed: Yes
--- NOTE | 2024-08-29 23:25 | PCM.POSTANE2 ---
Anesthesia Postop Eval I Sum Postop Eval Completion status Anesthesia document: Postop Eval 1 completed: Yes Anesthesia Postop Eval I Summary Anesthesia Postop Eval I Summary: Anesthesia Postop Eval I: Assessment Summary Airway patent Yes 08/30/24 07:41 Spontaneous unlabored Yes 08/30/24 07:41 respirations Mental status Awake,Calm 08/30/24 07:41 nausea No 08/30/24 07:41 Vomiting No 08/30/24 07:41 Anesthesia Postop Eval I: Fluid Summary Crystalloid volume administer 400 08/30/24 07:41 (ml) Colloids volume administered ( ml) Blood Product volume administered (ml) Total IV fluid infused 400 08/30/24 07:41 Anesthesia Postop Eval I: Summary Notes Anesthesia Complication No 08/30/24 07:41 Anesthesia Complication Comment: Post-operative progress note Anesthesia: Postop Eval II Evaluation Mental status: Awake Pain Level: 2 nausea: No Vomiting: No Complications Anesthesia Complication: No
[2024-08-30] VITALS (11 sets, daily range): BP systolic 105–126; BP diastolic 64–80; PULSE 81–104; RESP 12–20; TEMP 36.1–37.8; O2SAT 96–100; BMI 38.1
[2024-08-30 01:02] LABS: Bedside Glucose 115 mg/dL (74-106)
[2024-08-30] MEDS: Thyroid 60 MG Tablet PO (05:21)
[2024-08-30] MEDS: Levothyroxine 25 MCG TABLET PO (05:21)
[2024-08-30] MEDS: metroNIDAZOLE 500 MG/100 ML BAG 100 MG IV ×3 (05:23→21:50)
[2024-08-30] MEDS: Acetaminophen 325 MG Tablet 650 MG PO ×2 (05:23→21:55)
[2024-08-30 06:51] LABS: Bedside Glucose 108 mg/dL (74-106)
--- NOTE | 2024-08-30 07:42 | ANES.CONFIRM ---
Anesthesia: Confirm Documents Multiple Procedures on Account (2) Confirmed Documents: Yes
--- NOTE | 2024-08-30 07:58 | PN.HOSP_ITS ---
Reason for Visit Reason for Visit: Diagnoses Liver disease, unspecified (08/29/24) Other cholangitis (08/29/24) Obstruction of bile duct (08/29/24) Subjective Subjective Patient is a 48-year-old female who presented [facility] ED on 08/29/2024 with abdominal pain with nausea, fever/chills and URI symptoms. Objective Data Objective Data Vital Signs: Vital Signs Temp Pulse Resp BP Pulse Ox O2 Del Method 97 F L 104 H 20 H 119/74 96 Room Air 08/30/24 07:41 08/30/24 07:41 08/30/24 07:41 08/30/24 07:41 08/30/24 07:41 08/30/24 04:00 Oxygen Delivery Method Room Air Weight: 94.6 kg Body Mass Index (BMI) 38.1 Intake & Output: Intake and Output for Last 24 Hours 08/28/24 08/29/24 08/30/24 23:59 23:59 23:59 Intake Total 1100 / 1100 1250 / 1250 Balance 1100 / 1100 1250 / 1250 Lab / Micro Data 08/30/24 08:02 08/30/24 08:02 Labs: Laboratory Results - last 24 hr 08/29/24 15:11: WBC 13.5 H, RBC 5.33, Hgb 14.6, Hct 44.1, MCV 82.7, MCH 27.4, MCHC 33.1, RDW Std Deviation 38.4, RDW Coeff of Fabio 12.8, Plt Count 202, MPV 10.7, Immature Gran % (Auto) 0.600, Neut % (Auto) 93.9 H, Lymph % (Auto) 2.0 L, [place] % (Auto) 3.3, Eos % (Auto) 0.0, Baso % (Auto) 0.2, Absolute Neuts (auto) 12.6 H, Absolute Lymphs (auto) 0.27 L, Nucleated RBC % 0, PT 13.5, INR 1.0, APTT 27.9, Sodium 134, Potassium 3.9, Chloride 99, Carbon Dioxide 20.2 L, Anion Gap 14, BUN 8, Creatinine 0.74, Estim Creat Clear Calc 95.78, Est GFR (MDRD) Non-Af 99, BUN/Creatinine Ratio 10.3, Glucose 175 H, Lactic Acid 1.6, Calcium 9.0, T otal Bilirubin 4.42 H, Direct Bilirubin 2.99 H, AST 250 H, ALT 628 H, Alkaline Phosphatase 266 H, Total Protein 7.4, Albumin 4.3, Globulin 3.2, Lipase 13 08/29/24 16:26: Urine Color Straw, Urine Clarity Clear, Urine pH 6.0, Ur Specific [place] 1.010, Urine Protein 30 H, Urine Glucose (UA) Normal, Urine Ketones 50 H, Urine Occult Blood 25 H, Urine Nitrite Positive H, Urine Bilirubin 6 H, Urine Urobilinogen 8 H, Ur Leukocyte Esterase 25 H, Urine RBC 0-5 SEEN, Urine WBC 5-10 SEEN, Ur Squamous Epith Cells 0-5 SEEN, Urine Bacteria 1+, Urine Mucus RARE, Urine Test Negative 08/30/24 00:39: POC Glucose 115 H 08/30/24 06:31: POC Glucose 108 H Micro: Microbiology 08/29/24 15:40 Blood Culture (Wb) - Venous Blood Culture - Preliminary 08/29/24 15:11 Blood Culture (Wb) - Venous Blood Culture - Preliminary 08/29/24 13:50 Mucosa - Nose SARS-CoV-2, Influenza & RSV (PCR) - Final RSV Radiography Diagnostic Testing: Radiology Impression Abdomen/Pelvis CT 08/29/24 15:09 IMPRESSION: Gallstones. Possible gallstone in the neck of the gallbladder. Mild degree of central intrahepatic biliary ductal dilatation. Correlation with ultrasound recommended for further evaluation. Fatty infiltration of the liver. One or more dose reduction techniques were used (e.g., Automated exposure control, adjustment of the mA and/or kV according to patient size, use of iterative reconstruction technique). Reading Location: [id number] Chest X-Ray 08/29/24 16:00 IMPRESSION: No acute abnormality is seen. Reading Location: [id number] Gallbladder Ultrasound 08/29/24 16:08 IMPRESSION: 1. Distended gallbladder with cholelithiasis. No pericholecystic fluid or significant wall thickening. Mildly dilated common bile duct measuring 8 mm. Consider MRCP for further assessment if indicated. 2. Hepatic steatosis. 3. Nonspecific hypoechoic lesion in the right hepatic lobe, not a simple cyst. Recommend further evaluation with nonemergent contrast-enhanced MRI. Reading Location: [facility] Retro Cholangiopancreatogram 08/29/24 21:30 IMPRESSION: Fluoroscopy during ERCP as above. Reading Location: [facility] Physical Exam Narrative GENERAL: cooperative HEENT: Atraumatic; normocephalic EYES; Anicteric, Normal Conjunctiva NECK; supple, normal thyroid, RESPIRATORY: Diminished to auscultation CARDIOVASCULAR: Regular S1 S2, GI: soft, normoactive bowel sounds, : No Renal angle tenderness; EXTREMITIES: No edema, no clubbing, MUSCULOSKELETAL: no muscle wasting NEURO: Awake; no lateralizing signs. SKIN: No Rash PSYCH; Flat affect Assessment & Plan Assessment/Plan (1) Ascending cholangitis: (2) Obstructive jaundice: PLAN: Plan Patient is a 48-year-old female who presented [facility] ED on 08/29/2024 with abdominal pain with nausea, fever/chills and URI symptoms. 1. Choledocholithiasis with concern for acute cholangitis ? CT of the abdomen and pelvis obtained on admission demonstrated Distended gallbladder with cholelithiasis. No pericholecystic fluid or significant wall thickening. Mildly dilated common bile duct measuring 8 mm. Hepatic steatosis. Nonspecific hypoechoic lesion in the right hepatic lobe, not a simple cyst. Patient was started on broad-spectrum antibiotic therapy with Levaquin and Flagyl consult placed to general surgery and GI. Patient underwent ERCP the day prior results reviewed. Plans for patient to undergo cholecystectomy on 08/31/2024 2. RSV infection ? Patient tested positive for RSV on admit. Mild URI symptoms noted. Chest x- ray unremarkable. Treated with symptomatic management. Contact precautions in place. 3. Hypothyroidism ? Patient is on patient is on pork thyroid supplement home dose continued 4. PCOS ? Patient is on metformin 5. Class II obesity with BMI of 38.1 ? Complicating care weight loss advised 6. DVT prophylaxis ? On enoxaparin Time spent in the patient's overall evaluation,decision-making process, review of diagnostic data, adjustment of management, discussion with other providers, nursing nursing and ancillary staff involved in patient's care documentation, 50 minutes Charges/Coding Visit Charges Inpatient E&M: 59825 Subs Hosp L3
--- NOTE | 2024-08-30 08:00 | PN.SURG_ITS ---
Subjective Subjective Patient seen and evaluated during AM rounds. She is resting in bed but states she had a restless night. She also reports that she is febrile this morning. She positively, confirms that her back pain with that she presented is resolved. Objective Data Objective Data Vital Signs: Vital Signs Temp Pulse Resp BP Pulse Ox O2 Del Method 97 F L 104 H 20 H 119/74 96 Room Air 08/30/24 07:41 08/30/24 07:41 08/30/24 07:41 08/30/24 07:41 08/30/24 07:41 08/30/24 04:00 Oxygen Delivery Method Room Air Weight: 208 lb 8.917 oz Body Mass Index (BMI) 38.1 Intake & Output: Intake and Output for Last 24 Hours 08/28/24 08/29/24 08/30/24 23:59 23:59 23:59 Intake Total 1100 / 1100 1250 / 1250 Balance 1100 / 1100 1250 / 1250 Lab / Micro Data 08/30/24 08:02 08/30/24 08:02 Labs: Laboratory Results - last 24 hr 08/29/24 15:11: WBC 13.5 H, RBC 5.33, Hgb 14.6, Hct 44.1, MCV 82.7, MCH 27.4, MCHC 33.1, RDW Std Deviation 38.4, RDW Coeff of Fabio 12.8, Plt Count 202, MPV 10.7, Immature Gran % (Auto) 0.600, Neut % (Auto) 93.9 H, Lymph % (Auto) 2.0 L, [place] % (Auto) 3.3, Eos % (Auto) 0.0, Baso % (Auto) 0.2, Absolute Neuts (auto) 12.6 H, Absolute Lymphs (auto) 0.27 L, Nucleated RBC % 0, PT 13.5, INR 1.0, APTT 27.9, Sodium 134, Potassium 3.9, Chloride 99, Carbon Dioxide 20.2 L, Anion Gap 14, BUN 8, Creatinine 0.74, Estim Creat Clear Calc 95.78, Est GFR (MDRD) Non-Af 99, BUN/Creatinine Ratio 10.3, Glucose 175 H, Lactic Acid 1.6, Calcium 9.0, T otal Bilirubin 4.42 H, Direct Bilirubin 2.99 H, AST 250 H, ALT 628 H, Alkaline Phosphatase 266 H, Total Protein 7.4, Albumin 4.3, Globulin 3.2, Lipase 13 08/29/24 16:26: Urine Color Straw, Urine Clarity Clear, Urine pH 6.0, Ur Specific [place] 1.010, Urine Protein 30 H, Urine Glucose (UA) Normal, Urine Ketones 50 H, Urine Occult Blood 25 H, Urine Nitrite Positive H, Urine Bilirubin 6 H, Urine Urobilinogen 8 H, Ur Leukocyte Esterase 25 H, Urine RBC 0-5 SEEN, Urine WBC 5-10 SEEN, Ur Squamous Epith Cells 0-5 SEEN, Urine Bacteria 1+, Urine Mucus RARE, Urine Test Negative 08/30/24 00:39: POC Glucose 115 H 08/30/24 06:31: POC Glucose 108 H Micro: Microbiology 08/29/24 15:40 Blood Culture (Wb) - Venous Blood Culture - Preliminary 08/29/24 15:11 Blood Culture (Wb) - Venous Blood Culture - Preliminary 08/29/24 13:50 Mucosa - Nose SARS-CoV-2, Influenza & RSV (PCR) - Final RSV Radiography Diagnostic Testing: Radiology Impression Abdomen/Pelvis CT 08/29/24 15:09 IMPRESSION: Gallstones. Possible gallstone in the neck of the gallbladder. Mild degree of central intrahepatic biliary ductal dilatation. Correlation with ultrasound recommended for further evaluation. Fatty infiltration of the liver. One or more dose reduction techniques were used (e.g., Automated exposure control, adjustment of the mA and/or kV according to patient size, use of iterative reconstruction technique). Reading Location: [id number] Chest X-Ray 08/29/24 16:00 IMPRESSION: No acute abnormality is seen. Reading Location: [id number] Gallbladder Ultrasound 08/29/24 16:08 IMPRESSION: 1. Distended gallbladder with cholelithiasis. No pericholecystic fluid or significant wall thickening. Mildly dilated common bile duct measuring 8 mm. Consider MRCP for further assessment if indicated. 2. Hepatic steatosis. 3. Nonspecific hypoechoic lesion in the right hepatic lobe, not a simple cyst. Recommend further evaluation with nonemergent contrast-enhanced MRI. Reading Location: [facility] Retro Cholangiopancreatogram 08/29/24 21:30 IMPRESSION: Fluoroscopy during ERCP as above. Reading Location: [facility] Physical Exam Const oriented x3 and no apparent distress Constitutional Narrative: Persistently jaundiced Resp normal respiratory effort GI GI Narrative: Mildly distended, soft, nontender to palpation apart from left lower quadrant Assessment & Plan Assessment/Plan (1) Obstructive jaundice: PLAN: Patient is 48-year-old female with apparent cholangitis and obstructive jaundice?likely owing to a underlying diagnosis of choledocholithiasis. Patient now status post ERCP with confirmation of choledocholithiasis. Biliary tree was cleared of debris. Patient has had some clinical improvement but reports fevers overnight and feeling restless and still less than well. Given patient's appearance I believe she would benefit from an additional day of antibiotics and then proceed for laparoscopic cholecystectomy with intraoperative cholangiography tomorrow, 08/31/2024. Patient initially was resistant and appears to want to proceed today, but then does express understanding about bringing undue stress on her body for a procedure that is otherwise preventative (I do not believe patient has cholecystitis). Thus a diet is reinstated and patient has been booked for the operating room tomorrow. Please make n.p.o. past midnight. Please collect consent for laparoscopic cholecystectomy with intraoperative cholangiogram. Deacon Burgos MD General Surgery Endocrine Surgery Pager: [facility] [address] [place] [address], [facility], [address] [place] [address] Office: [phone] Charges/Coding Visit Charges Inpatient E&M: 82982 Subs Hosp L2
[2024-08-30 08:35] LABS: Hematocrit 35.6 % (37-47); Mean Corp Hgb Conc 33.7 g/dL (32-36); Mean Corpuscular Hgb 27.5 pg (27.0-32.0); Mean Corpuscular Volume 81.5 fL (81-99); Mean Platelet Vol. 10.5 fl (6.2-12.0); Platelet Count 157 K/mm3 (150-450); RBC Distribution Width SD 38.7 fl (35.1-43.9); Red Blood Count 4.37 M/mm3 (4.2-5.4); White Blood Count 8.4 K/mm3 (4.4-11.0)
[2024-08-30] MEDS: levoFLOXacin IV 750 MG/150 ML BAG 100 MG IV (08:35)
[2024-08-30] MEDS: 0.9% Saline Lock 10 ML Syringe IV ×3 (08:35→21:48)
[2024-08-30 09:56] LABS: ALB/GLOB Ratio 1.3 RATIO (0.9-2.4); AST(SGOT) 96 U/L (<=31); Alanine Aminotransfer ALT/SGPT 368 U/L (<=34); Albumin, Serum 3.3 g/dL (3.5-5.0); Alkaline Phosphatase 177 U/L (35-104); Anion Gap 13 (5-15); BUN 6 mg/dL (4-19); BUN/Creat Ratio 10.3 RATIO (10-20); Calcium,Total 8.1 mg/dL (7.6-11.0); Carbon Dioxide 19.8 mmol/L (21.0-32.0); Chloride 106 mmol/L (98-108); Creatinine, Serum 0.62 mg/dL (0.70-1.20); EST Glomerular Filtration Rate 108 (>60); Estimated Creatinine Clearance 116.36 ml/min (50-250); Globulin 2.5 g/dL (2.2-4.2); Glucose 103 mg/dL (70-99); Potassium 3.6 mmol/L (3.3-5.1); Protein, Total 5.8 g/dL (5.9-8.4); Sodium Level 139 mmol/L (133-145)
--- NOTE | 2024-08-30 10:56 | CASEMGMT ---
Assessment- SW completed assessment with patient. Patient was sitting up in chair. Patient was alert and oriented X3 and willing to participate in assessment. SW also confirmed addresses and phone numbers for patient and her contacts. Living situation- Patient lives with her in a 2 story home with entry steps. Insurance- [employer] PCP: Milton Marcus Specialists: Endocrinology- Dr Montes in [facility]: [facility] DME:? None ADL's/IADL's: Independent in all activities of daily living Transportation- patient drives Past SNF/rehab: None Past HH: None [facility]- [facility] LW: none POA:? none Patient goal- Patient plans on returning home and does not anticipate any d/c needs. Plan: RN CM will follow, but do not anticipate any d/c needs. Karin Bañuelos DISPUTE RESOLUTION ANALYST DELTA
[2024-08-31] VITALS (11 sets, daily range): BP systolic 108–133; BP diastolic 70–84; PULSE 71–100; RESP 18; TEMP 36–37.2; O2SAT 93–99; BMI 37.2
[2024-08-31] MEDS: metroNIDAZOLE 500 MG/100 ML BAG 100 MG IV ×3 (05:49→21:29)
--- NOTE | 2024-08-31 06:33 | RAD_ITS ---
PROCEDURE: Cholangiogram REASON FOR EXAM: Laparoscopic cholecystectomy TECHNIQUE: 2 cine clips were submitted with 93 and 54 images. Total fluoroscopy time was 28 seconds. Peak skin radiation dose was 20 mGy. COMPARISON: 08/29/2024 FINDINGS: See impression RAD/Cholangiogram/ O R,Initial IMPRESSION: Satisfactory opacification of the biliary tree and common bile duct which conta ins a biliary stent. Mild diffuse narrowing/stricturing of the common hepatic duct. See operative report for further details. Reading Location: [facility]
--- NOTE | 2024-08-31 07:37 | PN.HOSP_ITS ---
Reason for Visit Reason for Visit: Diagnoses Liver disease, unspecified (08/29/24) Other cholangitis (08/29/24) Obstruction of bile duct (08/29/24) Subjective Subjective Patient underwent laparoscopic subtotal cholecystectomy with cholangiography Objective Data Objective Data Vital Signs: Vital Signs Temp Pulse Resp BP Pulse Ox O2 Del Method 98.2 F 71 18 128/84 H 96 Room Air 08/31/24 06:06 08/31/24 06:06 08/31/24 06:06 08/31/24 06:06 08/31/24 06:06 08/31/24 06:06 Oxygen Delivery Method Room Air Weight: 92.3 kg Body Mass Index (BMI) 37.2 Intake & Output: Intake and Output for Last 24 Hours 08/29/24 08/30/24 09/01/24 23:59 23:59 00:59 Intake Total 1100 / 1100 2450 / 2450 Balance 1100 / 1100 2450 / 2450 Lab / Micro Data 08/31/24 07:30 08/31/24 07:30 Labs: Laboratory Results - last 24 hr 08/30/24 06:31: POC Glucose 108 H 08/30/24 08:02: WBC 8.4, RBC 4.37, Hgb 12.0, Hct 35.6 L, MCV 81.5, MCH 27.5, MCHC 33.7, RDW Std Deviation 38.7, RDW Coeff of Fabio 13.0, Plt Count 157, MPV 10.5, Sodium 139, Potassium 3.6, Chloride 106, Carbon Dioxide 19.8 L, Anion Gap 13, BUN 6, Creatinine 0.62 L, Estim Creat Clear Calc 116.36, Est GFR (MDRD) Non- Af 108, BUN/Creatinine Ratio 10.3, Glucose 103 H, Calcium 8.1, Total Bilirubin 5.10 H, AST 96 H, ALT 368 H, Alkaline Phosphatase 177 H, Total Protein 5.8 L, A lbumin 3.3 L, Globulin 2.5, Albumin/Globulin Ratio 1.3 Micro: Microbiology 08/29/24 15:40 Blood Culture (Wb) - Venous Blood Culture - Preliminary GNR lactose driver's license reviewing officer 08/29/24 15:11 Blood Culture (Wb) - Venous Blood Culture - Preliminary GNR lactose driver's license reviewing officer 08/29/24 16:26 Urine, Clean Catch Urine Culture - Preliminary Mixed Gram Pos & Gram Neg Org 08/29/24 13:50 Mucosa - Nose SARS-CoV-2, Influenza & RSV (PCR) - Final RSV Physical Exam Narrative GENERAL: cooperative HEENT: Atraumatic; normocephalic EYES; Anicteric, Normal Conjunctiva NECK; supple, normal thyroid, RESPIRATORY: Diminished to auscultation CARDIOVASCULAR: Regular S1 S2, GI: soft, normoactive bowel sounds, : No Renal angle tenderness; EXTREMITIES: No edema, no clubbing, MUSCULOSKELETAL: no muscle wasting NEURO: Awake; no lateralizing signs. SKIN: No Rash PSYCH; Flat affect Assessment & Plan Assessment/Plan (1) Ascending cholangitis: (2) Obstructive jaundice: PLAN: Plan Patient is a 48-year-old female who presented [facility] ED on 08/29/2024 with abdominal pain with nausea, fever/chills and URI symptoms. 1. Choledocholithiasis with concern for acute cholangitis ? CT of the abdomen and pelvis obtained on admission demonstrated Distended gallbladder with cholelithiasis. No pericholecystic fluid or significant wall thickening. Mildly dilated common bile duct measuring 8 mm. Hepatic steatosis. Nonspecific hypoechoic lesion in the right hepatic lobe, not a simple cyst. Patient was started on broad-spectrum antibiotic therapy with Levaquin and Flagyl consult placed to general surgery and GI. Patient underwent ERCP the day prior results reviewed. Plans for patient to undergo cholecystectomy on 08/31/2024 ? 08/31/2024; patient underwent laparoscopic subtotal cholecystectomy with cholangiography on 08/31/2024 2. RSV infection ? Patient tested positive for RSV on admit. Mild URI symptoms noted. Chest x- ray unremarkable. Treated with symptomatic management. Contact precautions in place. 3. Hypothyroidism ? Patient is on patient is on pork thyroid supplement home dose continued 4. PCOS ? Patient is on metformin 5. Class II obesity with BMI of 38.1 ? Complicating care weight loss advised 6. DVT prophylaxis ? On enoxaparin Time spent in the patient's overall evaluation,decision-making process, review of diagnostic data, adjustment of management, discussion with other providers, nursing nursing and ancillary staff involved in patient's care documentation, 40 minutes Charges/Coding Visit Charges Inpatient E&M: 24714 Subs Hosp L2
--- NOTE | 2024-08-31 08:09 | PCM.PRE.AN2 ---
ASA Classification* ASA Classification ASA Classification: 2 and E Assessment & Plan Anesthesia* Anesthesia Assessment Anesthesia Assessment: Discussed sedation and/or anesthesia options, risks, benefits, and alternatives with patient/parents/legal guardian/POA. Questions invited. The patient/parents/legal guardian/POA seems to understand and agrees to proceed with anesthesia plan. Reviewed the physical assessment, medical history, allergy history and patient home medications list prior to surgery/procedure/anesthetic and documented any changes. Performed airway and anesthesia risk assessments. Anesthesia Type Anesthesia Type: General Anesthesia Focused Assessment* Temperature: 98.2 F Pulse Rate: 71 Blood Pressure: 128/84 Respiratory Rate: 18 Pulse Ox: 96 Airway Assessment Mouth opens: >3 cm Mallampati Score: II Focused Labs Anesthesia Preop lab: CBC WBC 8.4 K/mm3 (4.4-11.0) 08/30/24 08:02 08/30/24 RBC 4.37 M/mm3 (4.2-5.4) 08/30/24 08:02 08/30/24 Hgb 12.0 g/dL (12.0-15.0) 08/30/24 08:02 08/30/24 Hct 35.6 % (37-47) L 08/30/24 08:02 08/30/24 Plt Count 157 K/mm3 (150-450) 08/30/24 08:02 08/30/24 CHEMISTRY Potassium 3.6 mmol/L (3.3-5.1) 08/30/24 08:02 08/30/24 Sodium 139 mmol/L (133-145) 08/30/24 08:02 08/30/24 BUN 6 mg/dL (4-19) 08/30/24 08:02 08/30/24 Creatinine 0.62 mg/dL (0.70-1.20) L 08/30/24 08:02 08/30/24 Glucose 103 mg/dL (70-99) H 08/30/24 08:02 08/30/24 POC Glucose 108 mg/dL (74-106) H 08/30/24 06:31 08/30/24 TSH 0.14 uIU/mL (0.358-3.74) L 09/01/19 12:06 09/01/19 COAG PT 13.5 SECONDS (11.7-14.9) 08/29/24 15:11 08/29/24 Urine Test Negative Negative 08/29/24 16:26 08/29/24 Pre-Assessment Diagnosis/Proposed Procedure Planned Operative Procedure(s): Laproscopic Sandra Anesthesia History Anesthesia History - manager enterprise: Anesthesia History - manager enterprise Hx Hospitalization Any Problems With Anesthesia No 08/30/24 01:54 Cholinesterase deficiency No 08/30/24 01:54 You/Your Family Experience No 08/30/24 01:54 fever (hyperthermia) with Relationship Recent Exposure to Contagious Yes: RSV Positive 08/30/24 01:54 Disease Does patient have nerve No 08/30/24 01:54 stimulator Patient instructed to have device shut off --Does patient have Pacemaker No 08/29/24 18:21 or ICD? When Was Last Pacemaker Check QUESTION #4 FULL TEXT: You/Your Family Experience fever (hyperthermia) with Anesthesia Last Oral Intake Last Oral intake: Last Oral Intake NPO since 00:00 08/31/24 06:06 Meds taken in AM with sips of No 08/31/24 06:06 water? Meds patient instructed to take am of surgery PONV PONV - manager enterprise: PONV - manager enterprise Female HX of Motion Sickness HX of N/V After Surgery Non-Smoker Duration of Surgery greater than 60 minutes Number of Risk Factors PONV Score Height & Weight Height & Weight: Anesthesia: Height & Weight Height 5 ft 2 in 08/31/24 06:06 Weight: 92.3 kg 08/31/24 06:06 Body Mass Index (BMI) 37.2 08/31/24 06:06 Respiratory Assessment Respiratory Assessment - manager enterprise: Respiratory Tract Infection Hx - manager enterprise Hx Respiratory Tract Infection Yes: RSV Positive 08/30/24 01:54 STOP Sleep Apnea STOP Sleep Apnea - manager enterprise: STOP Sleep Apnea - manager enterprise Hx Hypertension No 08/29/24 23:54 Hx Sleep Apnea No 08/29/24 23:54 CPAP BIPAP Do you snore loudly (louder No 08/29/24 23:54 than talking or can be heard Do you often feel tired/ No 08/29/24 23:54 fatigued/ sleepy during daytime? Has anyone observed you stop No 08/29/24 23:54 breathing during sleep? STOP Results Negative 08/29/24 23:54 QUESTION #5 FULL TEXT : Do you snore loudly (louder than talking or can be heard through closed doors)? Tobacco Use History Tobacco Use History - manager enterprise: Tobacco Use History - manager enterprise Tobacco Use Smoking Status Never smoker 08/29/24 23:54 Hx Tobacco Use No 08/29/24 23:54 Years Smoking Packs Smoked per Day Smoking Cessation Date was within the last 15 years Hx Smoking Cessation Date Hx Smoking Cessation Counseling Hematologic Medial History Hematologic Hx - manager enterprise: Hematologic Medical Hx - screening nurse Hx of Blood Transfusion No 08/29/24 23:54 Hx of Transfusion in last 3 No 08/29/24 23:54 Months Date of Last Transfusion (if within last 3 months) Ever experience any problems No 08/29/24 23:54 with transfusion(s)? Specify any problems Hx of Preganancy in last 3 No 08/29/24 23:54 Months Nurse Filling Out Transfusion JSNOW 08/29/24 23:54 & Questions: Date: 08/30/24 08/29/24 23:54 Time: 00:05 08/29/24 23:54 Patient unable to answer at this time (ie. confused, unrespo /Reproduction History /Reproductive History - manager enterprise: /Reproductive Hx- manager enterprise Hx Now No 08/30/24 01:54 Gestational Age (in weeks): EDC: Hx Hx Para Hx Section SAB No 08/30/24 01:54 Active Medications Active Medications: Current Medications Generic Name Dose Route Start Last Admin Trade Name Freq PRN Reason Stop Dose Admin Acetaminophen 650 mg 08/29/24 23:53 08/30/24 21:55 Acetaminophen 325 Mg Tablet PO 650 mg Q6H PRN PRN Administration Pain 1-10 Or Fever>100.7 Enoxaparin Sodium 40 mg 08/30/24 10:00 08/30/24 08:35 Enoxaparin 40 Mg/0.4 Ml Syringe SC Not Given DAILY CAROLEE Glucagon 1 mg 08/29/24 23:53 Glucagon 1 Mg/Ml Syringe IM X1 PRN Hypoglycemia Protocol Levofloxacin 750 mg in 150 mls @ 100 mls/hr 08/30/24 10:00 08/30/24 10:05 Levaquin Iv IV Infused Q24 CAROLEE Infusion Metronidazole 500 mg in 100 mls @ 100 mls/hr 08/30/24 06:00 08/31/24 05:49 Flagyl IV 100 mls/hr Q8 CAROLEE Administration Dextrose 250 mls @ 0 mls/hr 08/29/24 23:53 Dextrose 10%-Water IV .Q0M PRN HYPOGLYCEMIA Protocol As Directed Clindamycin Phosphate 900 mg in 50 mls @ 75 mls/hr 08/31/24 08:00 Cleocin IV 08/31/24 08:39 PREOP ONE Levothyroxine Sodium 25 mcg 08/30/24 06:00 08/30/24 05:21 Levothyroxine 25 Mcg Tablet PO 25 mcg [id number] CAROLEE Administration Melatonin 3 mg 08/29/24 23:53 Melatonin 3 Mg Tablet PO QHS PRN PRN INSOMNIA Ondansetron HCl 4 mg 08/29/24 23:53 Ondansetron 4 Mg/2 Ml Vial IV Q8H PRN PRN NAUSEA/VOMITING Sodium Chloride 10 - 40 ml 08/29/24 23:57 08/30/24 21:48 0.9% Saline Lock 10 Ml Syringe IV 20 ml UD PRN Administration SALINE FLUSH Thyroid 60 mg 08/30/24 10:00 08/30/24 05:21 Thyroid 60 Mg Tablet PO 60 mg DAILY CAROLEE Administration [facility] Medical History PCOS (polycystic ovarian syndrome) Migraine headache Home Medications ?Medication ?Instructions ?Recorded ?Last Taken ?Type thyroid (pork) 60 mg tablet 60 mg PO DAILY 08/23/20 08/29/24 History (Conrad Thyroid) cholecalciferol (vitamin D3) 1 tab PO DAILY 08/29/24 Unknown History levothyroxine 25 mcg tablet 25 mcg PO SUTUWETHSA 08/29/24 08/29/24 History magnesium citrate 125 mg capsule 250 mg PO QHS 08/29/24 Unknown History metformin 500 mg tablet 500 mg PO DAILY 08/29/24 Unknown History Allergy/AdvReac Type Severity Reaction Status Date / Time Penicillins Allergy Intermediate Hives Verified 08/30/24 00:13 chlorhexidine Allergy Mild Rash Verified 08/30/24 00:13 Family History Other Cancer Diabetes Heart disease Hypertension Surgical History History of lobectomy of thyroid Social History household members: spouse housing: house Smoking Status: Never smoker Review of Systems (Anesthesia) ROS Narrative System reviewed and no additional complaints, except as documented.
--- NOTE | 2024-08-31 08:20 | GALL_PTH ---
PATIENT: LOPEZCHERYL RENITA LOC: U U#:[id number] AGE/SX: 48/F ROOM: [facility] RE08/29/[address]: Dr. Spencer La DO : 1975 BED: 1 DIS: 09/02/2024 SPEC #: [id number] RECD: 09/01/24 11:04 STATUS: DANY RENeel #: [id number] KAYODE: 08/31/24 08:[address]: Deacon Burgos DEPT: SURGICAL PATHOLOGY RECD BY: Chad Castano ENTERED: 09/01/24 11:05 SP TYPE: RORO CASTANEDA DR: DO Dr. Jonathan Hernández MD Dr. Rahsaan Friend, DO Dr. William Lago, MD Tissues: A - Gallbladder, NOS B - Liver, NOS Procedures: Surgery Specimen Level III Surgery Specimen Level V HEADER OPERATION: Laparoscopic subtotal cholecystectomy with IOC, liver lesion PRE-OP DIAGNOSIS: Obstructive jaundice, severe cholecystitis and cholelithiasis, liver lesion TISSUE SUBMITTED: A- Gallbladder, B- Liver lesion biopsy MICROSCOPIC DIAGNOSIS A: GALLBLADDER, CHOLECYSTECTOMY: * Acute gangrenous cholecystitis with cholelithiasis. B: LIVER LESION, WEDGE BIOPSY: * Bile duct adenoma - see note. * Note: Cautery artifact distorts the tissue. MICROSCOPIC DESCRIPTION Slides are reviewed. GROSS DESCRIPTION A. Received is one container labeled with the patient's name and designated gallbladder. The specimen consists of two fragments of rubbery brown-trivedi soft tissue which measure 4 x 3 x 1cm in aggregate. Multiple brown-yellow stones, the largest of which measures 2.6cm in greatest dimension, are also present. The rubbery fragments have ragged edges with one focal shiny surface resembling serosa. No definite mucosa is identified. Sectioning reveals firm glistening trivedi-red cut surfaces. TS 4. Cassette summary: A1- A4 : Ragged fragments, totally submitted. B. Received in fixative is one container labeled with the patient's name and designated Liver lesion biopsy. The specimen consists of one fragment of ragged firm brown-middleton soft tissue measuring 8 x 5 x 3mm. TE1 mr 09/01/2024 CPT:69261,17275
[2024-08-31 08:35] LABS: Absolute Lymphocyte Count 0.38 X10^3/uL (0.83-4.51); Absolute Neutrophil Count 3.9 X10^3/uL (2.0-7.7); Basophil# 0.02 X10^3/uL; Basophil% 0.4 % (0-1); Eosinophil# 0.04 X10^3/uL; Eosinophils% 0.8 % (0-5); Hematocrit 35.5 % (37-47); Lymphocyte # 0.38 X10^3/ul (0.83-4.51); Lymphocyte % 8.1 % (19-41); Mean Corp Hgb Conc 33.8 g/dL (32-36); Mean Corpuscular Hgb 27.9 pg (27.0-32.0); Mean Corpuscular Volume 82.6 fL (81-99); Mean Platelet Vol. 10.8 fl (6.2-12.0); Monocyte# 0.41 X10^3/uL; Monocyte% 8.7 % (0-10); NRBC Flagged by Analyzer 0 % (0-5); Neutrophil # 3.85 X10^3/uL (2.7-7.7); Neutrophil % 81.6 % (47-70); POSITIVE DIFFERENTIAL YES; Platelet Count 144 K/mm3 (150-450); RBC Distribution Width CV 13.2 % (11.6-14.6); RBC Distribution Width SD 39.3 fl (35.1-43.9); White Blood Count 4.7 K/mm3 (4.4-11.0)
[2024-08-31] MEDS: Clindamycin 900 MG/50 ML BAG 75 MG IV (08:35)
[2024-08-31 09:23] LABS: AST(SGOT) 57 U/L (<=31); Alanine Aminotransfer ALT/SGPT 268 U/L (<=34); Albumin, Serum 3.2 g/dL (3.5-5.0); Alkaline Phosphatase 162 U/L (35-104); Anion Gap 12 (5-15); BUN 5 mg/dL (4-19); BUN/Creat Ratio 8.6 RATIO (10-20); Bilirubin, Direct 3.51 mg/dL (0.00-0.30); Calcium,Total 8.2 mg/dL (7.6-11.0); Carbon Dioxide 19.3 mmol/L (21.0-32.0); Chloride 104 mmol/L (98-108); Creatinine, Serum 0.56 mg/dL (0.70-1.20); EST Glomerular Filtration Rate 111 (>60); Estimated Creatinine Clearance 127.08 ml/min (50-250); Globulin 2.7 g/dL (2.2-4.2); Glucose 82 mg/dL (70-99); Potassium 3.5 mmol/L (3.3-5.1); Protein, Total 5.9 g/dL (5.9-8.4); Sodium Level 135 mmol/L (133-145); Total Bilirubin 4.38 mg/dL (0.00-1.30)
[2024-08-31] MEDS: levoFLOXacin IV 750 MG/150 ML BAG 100 MG IV (10:30)
[2024-08-31] MEDS: Bupiv/Epi 0.25% 30 ML Vial (11:28)
--- NOTE | 2024-08-31 11:34 | PCM.OPRPT ---
Operative Report (Standard) Operative Information Date of Procedure: 08/31/24 Pre-Operative Diagnosis: Choledocholithiasis with cholelithiasis Post-Operative Diagnosis: 1. Severe cholecystitis 2. Choledocholithiasis s/p ERCP with stone extraction and CBD stenting 3. Segment 4 liver lesion Surgery/Procedure Performed: 1. Laparoscopic subtotal cholecystectomy with cholangiography 2. Liver biopsy of segment 4 forming machine upkeep mechanic: Yes Director Of Religious Life: Juan Carlos Stiles Tasks completed by visual merchandising assistant: Opening & closing and Other (Laparoscopic camera operation) Type of Anesthesia: General/Supplemental RN Documented Start/Stop Times: Operation Date: 08/31/24 08:20 Case Time Anesthesia Start 08/31/24 08:09 Into Room 08/31/24 08:09 Procedure Start 08/31/24 08:36 Procedure End 08/31/24 11:46 Anesthesia End 08/31/24 11:53 Out of Room 08/31/24 11:53 Into Recovery 08/31/24 11:55 Out of Recovery 08/31/24 12:43 Procedure Start Time: 08:36 Procedure Stop Time: 11:46 Select all DRAINS/GRAFTS/IMPLANTS that apply: Drains Drain details: 15 Frisian round Brandon drain Estimated Blood Loss: 75 Specimen collected: Yes Description of specimen(s) removed: 1. Gallbladder with stone contents 2. Liver biopsy (segment 4) Description of surgery: After proper identification in the preoperative holding area the patient was brought to the operating room where she was positioned supine on the operating room table. Preoperatively DVT prophylaxis had been administered with Lovenox and SCDs were connected. Antibiotic prophylaxis with 900 mg clindamycin was administered given patient's allergy. General anesthesia was then induced. Patient's abdomen was prepped and draped in usual sterile fashion. A formal timeout was conducted to confirm both patient and the procedure. Procedure was begun with a supraumbilical incision which was extended deeply down to the level of the fascia. The fascia was elevated and incised, as well as the peritoneum. A finger sweep was performed to ensure there were no underlying adhesions and a 12 mm balloon trocar was inserted. Pneumoperitoneum was established at 15 mmHg. Three additional trocars (all 5 mm) were placed in the epigastrium and in the right upper quadrant. Later in the procedure patient's epigastric port site was upsized to a 12 mm port under laparoscopic visualization. Inspection of the peritoneum revealed no inadvertent injury to the viscera below. The gallbladder was visualized with evidence of chronic inflammation. The gallbladder fundus was was not easily grasped given the firmness of the gallbladder wall (it was later became apparent as a very large gallstone within the lumen) but it was grasped and elevated cephalad. Observing this firmness as well as a whitish lesion cephalad to the gallbladder fossa that measured approximately 1 cm in diameter I became somewhat suspicious for possible underlying gallbladder carcinoma. Using careful dissection the peritoneum was opened and the structures of the hepatocystic triangle were delineated. I traced the gallbladder neck to a dilated cystic duct and identified a obliquely coursing artery that gave rise to a cystic artery crossing the cystic duct. With every attempt to medially dissect the cystic duct this vessel bled. At one point I placed a tangential clip across a branching vessel towards the gallbladder that had been lacerated inadvertently during dissection of the triangle of Calot and was able to obtain temporary control. On subsequent bleeding I simply applied back pressure and the bleeding would stop. Laterally I identified Rouviere's sulcus and I was concerned that we were dealing with a foreshortened cystic duct situation and were thus in close proximity to the common bile duct. Upon reaching this observation I made a phone call to my partner to discuss the situation and discussed continuing for complete cholecystectomy versus subtotal cholecystectomy versus aborting the procedure. I felt like I could proceed safely with a subtotal approach and we jointly agreed that tissue would be beneficial for pathology to answer the question as to whether or not patient did have a carcinoma. I thus proceeded for a laparoscopic subtotal cholecystectomy but took great care to avoid spread of tissue from the immediate vicinity of the operative field. The anterior wall of the gallbladder was incised and a laparoscopic LigaSure device was used to begin excision of the anterior wall in a cephalad direction. Immediately I encountered a very large gallstone and had to extend my incision of the wall to the gallbladder fossa bilaterally. Then, bluntly the stone was maneuvered out of its position lodged in the gallbladder infundibulum and immediately there was egress of purulent discharge. This discharge was promptly suctioned free of the peritoneal cavity using laparoscopic suction mold shop supervisor device. Additional smaller stones were found beneath this larger stone and both were set aside a top of his stomach for later retrieval. Then one by one additional stones were removed from the gallbladder using a laparoscopic grasper and the suction mold shop supervisor device to float stones out of the deeper recesses of the gallbladder. Through this process I found the gallbladder posterior wall extended exceptionally intrahepatically. Once I was unable to identify any further stones I grasped the remaining cuff of gallbladder infundibulum and placed a Amaya clamp across the cystic duct. Using the pointed cholangiocatheter to puncture the wall of the cystic duct I then proceeded with a cholangiogram. Under fluoroscopy a cholangiogram was obtained showing contrast flowing into a common bile duct with unobstructed antegrade flow into the duodenum via a common bile duct stent. There was also retrograde flow through the common hepatic duct into the right and left hepatic ducts. I did not visualize any significant length to the cystic duct. With this finding and the deeply intrahepatic extension of the posterior wall I resolved to continue with the original operative plan of a subtotal cholecystectomy rather than trying to complete the cholecystectomy with division of the cystic duct and thereby risk potential injury to the common duct. The cholangiocatheter and clamp were removed and the posterior wall of the gallbladder (only a small portion remained) were ablated with application of ErbB argon beam coagulation. A laparoscopic retrieval bag was placed and the gallbladder wall remnants and stones were collected. Over 35 gallstones were confirmed (matching the number that had been counted on extraction from the gallbladder). The surgical bed was then examined for hemostasis and a suction mold shop supervisor device was used to copiously irrigate the area around the gallbladder as well as Morison's pouch. Several loose gallstones were identified in this process and were removed from the peritoneum. A Selvin Washburn suture passer was used to place fascial closure stitches (#1 PDS) over the epigastric and supraumbilical (after extraction of the gallbladder contents) port sites under laparoscopic visualization. Lastly a 15 Frisian round Brandon drain was fed into the peritoneal cavity via the right upper most right upper quadrant port site and was positioned along the inferior margin of the liver adjacent to the remnant gallbladder/cystic duct stump. It was secured at the skin using 2-0 nylon suture. Lastly a small amount of fibrillar hemostatic agent was placed over the area of our prior bleeding adjacent to the cystic duct but this remained white and color and there is no evidence for bleeding. Therefore the pneumoperitoneum was released and the fascial sutures were tied down. A total of 30 mL of anesthetic was injected at the port sites for postoperative pain control. The peritoneal drain was connected to bulb suction. The skin of each port site was then closed in subcuticular fashion using 4-0 Monocryl. Steri-Strips and bandages were applied as dressings. Patient tolerated the procedure well without any apparent complications. On emergence from their anesthetic the patient was taken to PACU for ongoing recovery. Surgical Findings: ? Evidence of severe chronic cholecystitis with folded, and contracted gallbladder with gallbladder wall thickening and many luminal gallstones ? Significant intrahepatic extension of the posterior aspect of the gallbladder ? Cholangiogram showing foreshortened cystic duct with otherwise unimpeded antegrade flow of contrast via common bile duct stent as well as retrograde flow to the common hepatic system ? Small (estimated 1 cm diameter) White liver lesion of segment 4 approximately 1.5 cm cephalad to gallbladder fossa Complications Complications: No Admit VTE Documentation VTE Mechan Device Prophylaxis: SCD's
--- NOTE | 2024-08-31 14:00 | PCM.POST.ANE ---
Anesthesia: Postop Eval I Current Vital Signs Temperature: 96.8 F Pulse Rate: 94 Blood Pressure: 116/76 Respiratory Rate: 18 Pulse Ox: 93 Oxygen Delivery Method: Room Air Assessment Airway patent: Yes Spontaneous unlabored respirations: Yes Mental status: Awake nausea: No Vomiting: No Anesthesia Complication: No Fluid Hydration Crystalloid volume administer (ml): 1,800 Total IV fluid infused: 1,800 Progress Note Anesthesia document: Postop Eval 1 completed: Yes
[2024-08-31] MEDS: Acetaminophen 325 MG Tablet 650 MG PO (14:23)
--- NOTE | 2024-08-31 14:34 | PCM.POSTANE2 ---
Anesthesia Postop Eval I Sum Postop Eval Completion status Anesthesia document: Postop Eval 1 completed: Yes Anesthesia Postop Eval I Summary Anesthesia Postop Eval I Summary: Anesthesia Postop Eval I: Assessment Summary Airway patent Yes 08/31/24 14:34 Spontaneous unlabored Yes 08/31/24 14:34 respirations Mental status Awake 08/31/24 14:34 nausea No 08/31/24 14:34 Vomiting No 08/31/24 14:34 Anesthesia Postop Eval I: Fluid Summary Crystalloid volume administer 1,800 08/31/24 14:34 (ml) Colloids volume administered ( ml) Blood Product volume administered (ml) Total IV fluid infused 1,800 08/31/24 14:34 Anesthesia Postop Eval I: Summary Notes Anesthesia Complication No 08/31/24 14:34 Anesthesia Complication Comment: Post-operative progress note Anesthesia: Postop Eval II Evaluation Mental status: Awake Pain Level: 0 nausea: No Vomiting: No
[2024-08-31] MEDS: Potassium Phosphate 40 MM in 0.9% Normal Saline (500mL Bag) 500 ML 62.5 MM IV (17:03)
[2024-08-31] MEDS: Na Biphos/Potassium Phosphate PACKET 1 PACKET PO (21:29)
[2024-08-31] MEDS: Acetaminophen 500 MG Tablet 1000 MG PO (21:30)
[2024-08-31] MEDS: 0.9% Saline Lock 10 ML Syringe IV (21:44)
[2024-09-01] VITALS (9 sets, daily range): BP systolic 114–133; BP diastolic 66–84; PULSE 67–95; RESP 16–20; TEMP 36.2–37; O2SAT 94–100
[2024-09-01 05:38] LABS: Absolute Neutrophil Count 4.8 X10^3/uL (2.0-7.7); Basophil# 0.01 X10^3/uL; Basophil% 0.2 % (0-1); Eosinophil# 0.02 X10^3/uL; Eosinophils% 0.3 % (0-5); Hematocrit 31.3 % (37-47); Hemoglobin 10.6 g/dL (12.0-15.0); Lymphocyte % 9.9 % (19-41); Mean Corp Hgb Conc 33.9 g/dL (32-36); Mean Corpuscular Hgb 27.6 pg (27.0-32.0); Mean Corpuscular Volume 81.5 fL (81-99); Mean Platelet Vol. 10.6 fl (6.2-12.0); Monocyte# 0.62 X10^3/uL; Monocyte% 10.3 % (0-10); NRBC Flagged by Analyzer 0 % (0-5); Neutrophil # 4.76 X10^3/uL (2.7-7.7); Neutrophil % 78.8 % (47-70); POSITIVE DIFFERENTIAL YES; Platelet Count 167 K/mm3 (150-450); RBC Distribution Width CV 13.1 % (11.6-14.6); RBC Distribution Width SD 38.8 fl (35.1-43.9); Red Blood Count 3.84 M/mm3 (4.2-5.4)
[2024-09-01] MEDS: metroNIDAZOLE 500 MG/100 ML BAG 100 MG IV (06:02)
[2024-09-01] MEDS: Acetaminophen 500 MG Tablet 1000 MG PO ×3 (06:03→21:39)
[2024-09-01 07:42] LABS: AST(SGOT) 50 U/L (<=31); Alanine Aminotransfer ALT/SGPT 193 U/L (<=34); Albumin, Serum 2.7 g/dL (3.5-5.0); Alkaline Phosphatase 132 U/L (35-104); Anion Gap 12 (5-15); BUN 4 mg/dL (4-19); BUN/Creat Ratio 7.6 RATIO (10-20); Bilirubin, Direct 1.82 mg/dL (0.00-0.30); Calcium,Total 7.4 mg/dL (7.6-11.0); Carbon Dioxide 19.6 mmol/L (21.0-32.0); Chloride 106 mmol/L (98-108); Creatinine, Serum 0.49 mg/dL (0.70-1.20); EST Glomerular Filtration Rate 115 (>60); Estimated Creatinine Clearance 145.24 ml/min (50-250); Globulin 2.8 g/dL (2.2-4.2); Glucose 112 mg/dL (70-99); Potassium 3.5 mmol/L (3.3-5.1); Protein, Total 5.5 g/dL (5.9-8.4); Sodium Level 138 mmol/L (133-145)
--- NOTE | 2024-09-01 08:05 | PCM.PN.HOSP ---
Reason for Visit Reason for Visit: Diagnoses Liver disease, unspecified (08/29/24) Other cholangitis (08/29/24) Obstruction of bile duct (08/29/24) Subjective Subjective Patient underwent laparoscopic subtotal cholecystectomy with cholangiography on 08/31/2024. Blood cultures obtained on admission so far positive forGNR lactose manager sales support. Patient remains on levofloxacin as well as metronidazole Objective Data Objective Data Vital Signs: Vital Signs Temp Pulse Resp BP Pulse Ox O2 Del Method 98.5 F 95 20 H 114/66 94 Room Air 09/01/24 02:00 09/01/24 07:03 09/01/24 02:00 09/01/24 02:00 09/01/24 02:00 09/01/24 02:48 Oxygen Delivery Method Room Air Weight: 92.3 kg Body Mass Index (BMI) 37.2 Intake & Output: Intake and Output for Last 24 Hours 08/30/24 09/01/24 09/01/24 23:59 00:59 23:59 Intake Total 2450 / 2450 375 / 582 267.5450 / 953.3333 Output Total 5 / Balance 2450 / 2450 346 / 025 327.9495 / 948.3333 Lab / Micro Data 09/01/24 04:54 09/01/24 04:54 Labs: Laboratory Results - last 24 hr 08/31/24 07:30: WBC 4.7, RBC 4.30, Hgb 12.0, Hct 35.5 L, MCV 82.6, MCH 27.9, MCHC 33.8, RDW Std Deviation 39.3, RDW Coeff of Fabio 13.2, Plt Count 144 L, MPV 10.8, Immature Gran % (Auto) 0.400, Neut % (Auto) 81.6 H, Lymph % (Auto) 8.1 L, Gage % (Auto) 8.7, Eos % (Auto) 0.8, Baso % (Auto) 0.4, Absolute Neuts (auto) 3.9, Absolute Lymphs (auto) 0.38 L, Nucleated RBC % 0, Sodium 135, Potassium 3.5, Chloride 104, Carbon Dioxide 19.3 L, Anion Gap 12, BUN 5, Creatinine 0.56 L, Estim Creat Clear Calc 127.08, Est GFR (MDRD) Non-Af 111, BUN/Creatinine Ratio 8.6 L, Glucose 82, Calcium 8.2, Phosphorus 2.0 L, Magnesium 2.0, Total Bilirubin 4.38 H, Direct Bilirubin 3.51 H, AST 57 H, ALT 268 H, Alkaline Phosphatase 162 H, Total Protein 5.9, Albumin 3.2 L, Globulin 2.7 09/01/24 04:54: WBC 6.0, RBC 3.84 L, Hgb 10.6 L, Hct 31.3 L, MCV 81.5, MCH 27.6, MCHC 33.9, RDW Std Deviation 38.8, RDW Coeff of Fabio 13.1, Plt Count 167, MPV 10.6, Immature Gran % (Auto) 0.500, Neut % (Auto) 78.8 H, Lymph % (Auto) 9.9 L, Gage % (Auto) 10.3 H, Eos % (Auto) 0.3, Baso % (Auto) 0.2, Absolute Neuts (auto) 4.8, Absolute Lymphs (auto) 0.60 L, Nucleated RBC % 0, Sodium 138, Potassium 3.5, Chloride 106, Carbon Dioxide 19.6 L, Anion Gap 12, BUN 4, Creatinine 0.49 L, Estim Creat Clear Calc 145.24, Est GFR (MDRD) Non-Af 115, BUN/Creatinine Ratio 7.6 L, Glucose 112 H, Calcium 7.4 L, Total Bilirubin 2.30 H, Direct Bilirubin 1.82 H, AST 50 H, ALT 193 H, Alkaline Phosphatase 132 H, Total Protein 5.5 L, Albumin 2.7 L, Globulin 2.8 Micro: Microbiology 08/29/24 15:40 Blood Culture (Wb) - Venous Blood Culture - Final GNR lactose manager sales support 08/29/24 15:11 Blood Culture (Wb) - Venous Blood Culture - Final Klebsiella pneumoniae sp pneum 08/29/24 16:26 Urine, Clean Catch Urine Culture - Final Mixed Gram Pos & Gram Neg Org 08/29/24 13:50 Mucosa - Nose SARS-CoV-2, Influenza & RSV (PCR) - Final RSV Radiography Diagnostic Testing: Radiology Impression Cholangiogram 08/31/24 06:33 IMPRESSION: Satisfactory opacification of the biliary tree and common bile duct which contains a biliary stent. Mild diffuse narrowing/stricturing of the common hepatic duct. See operative report for further details. [facility] Exam Narrative GENERAL: cooperative HEENT: Atraumatic; normocephalic EYES; Anicteric, Normal Conjunctiva NECK; supple, normal thyroid, RESPIRATORY: Diminished to auscultation CARDIOVASCULAR: Regular S1 S2, GI: soft, normoactive bowel sounds, : No Renal angle tenderness; EXTREMITIES: No edema, no clubbing, MUSCULOSKELETAL: no muscle wasting NEURO: Awake; no lateralizing signs. SKIN: No Rash PSYCH; Flat affect Assessment & Plan Assessment/Plan (1) Ascending cholangitis: (2) Obstructive jaundice: PLAN: Plan Patient is a 48-year-old female who presented [facility] ED on 08/29/2024 with abdominal pain with nausea, fever/chills and URI symptoms. 1. Choledocholithiasis with concern for acute cholangitis ? CT of the abdomen and pelvis obtained on admission demonstrated Distended gallbladder with cholelithiasis. No pericholecystic fluid or significant wall thickening. Mildly dilated common bile duct measuring 8 mm. Hepatic steatosis. Nonspecific hypoechoic lesion in the right hepatic lobe, not a simple cyst. Patient was started on broad-spectrum antibiotic therapy with Levaquin and Flagyl consult placed to general surgery and GI. Patient underwent ERCP the day prior results reviewed. Plans for patient to undergo cholecystectomy on 08/31/2024 ? 08/31/2024; patient underwent laparoscopic subtotal cholecystectomy with cholangiography on 08/31/2024 -09/01/2024 7 patient underwent laparoscopic subtotal cholecystectomy with cholangiography on 08/31/2024. Blood cultures obtained on admission so far positive forGNR lactose manager sales support. Patient remains on levofloxacin as well as metronidazole 2. RSV infection ? Patient tested positive for RSV on admit. Mild URI symptoms noted. Chest x-ray unremarkable. Treated with symptomatic management. Contact precautions in place. 3. Hypothyroidism ? Patient is on patient is on pork thyroid supplement home dose continued 4. PCOS ? Patient is on metformin 5. Class II obesity with BMI of 38.1 ? Complicating care weight loss advised 6. DVT prophylaxis ? On enoxaparin Time spent in the patient's overall evaluation,decision-making process, review of diagnostic data, adjustment of management, discussion with other providers, nursing nursing and ancillary staff involved in patient's care documentation, 36 minutes Charges/Coding Visit Charges Inpatient E&M: 02527 Subs Hosp L2
[2024-09-01] MEDS: Thyroid 60 MG Tablet PO (09:48)
[2024-09-01] MEDS: Na Biphos/Potassium Phosphate PACKET 1 PACKET PO ×2 (09:48→21:40)
--- NOTE | 2024-09-01 10:49 | PCM.PN.SRG ---
Subjective Subjective Patient evaluated sitting comfortably in the chair. She notes incisional pain. She denies any nausea, vomiting. She notes difficulty with her IV overnight. Objective Data Objective Data Vital Signs: Vital Signs Temp Pulse Resp BP Pulse Ox O2 Del Method 98.4 F 80 18 124/78 H 95 Room Air 09/01/24 08:20 09/01/24 08:20 09/01/24 08:20 09/01/24 08:20 09/01/24 08:20 09/01/24 08:30 Oxygen Delivery Method Room Air Weight: 203 lb 7.787 oz Body Mass Index (BMI) 37.2 Intake & Output: Intake and Output for Last 24 Hours 08/30/24 09/01/24 09/01/24 23:59 00:59 23:59 Intake Total 2450 / 2450 375 / 637 251.1940 / 953.3333 Output Total 5 / Balance 2450 / 2450 346 / 507 992.7012 / 948.3333 Lab / Micro Data 09/01/24 04:54 09/01/24 04:54 Labs: Laboratory Results - last 24 hr 09/01/24 04:54: WBC 6.0, RBC 3.84 L, Hgb 10.6 L, Hct 31.3 L, MCV 81.5, MCH 27.6, MCHC 33.9, RDW Std Deviation 38.8, RDW Coeff of Fabio 13.1, Plt Count 167, MPV 10.6, Immature Gran % (Auto) 0.500, Neut % (Auto) 78.8 H, Lymph % (Auto) 9.9 L, Willacy % (Auto) 10.3 H, Eos % (Auto) 0.3, Baso % (Auto) 0.2, Absolute Neuts (auto) 4.8, Absolute Lymphs (auto) 0.60 L, Nucleated RBC % 0, Sodium 138, Potassium 3.5, Chloride 106, Carbon Dioxide 19.6 L, Anion Gap 12, BUN 4, Creatinine 0.49 L, Estim Creat Clear Calc 145.24, Est GFR (MDRD) Non-Af 115, BUN/Creatinine Ratio 7.6 L, Glucose 112 H, Calcium 7.4 L, Total Bilirubin 2.30 H, Direct Bilirubin 1.82 H, AST 50 H, ALT 193 H, Alkaline Phosphatase 132 H, Total Protein 5.5 L, Albumin 2.7 L, Globulin 2.8 Micro: Microbiology 08/29/24 15:40 Blood Culture (Wb) - Venous Blood Culture - Final GNR lactose dermatology nurse practitioner 08/29/24 15:11 Blood Culture (Wb) - Venous Blood Culture - Final Klebsiella pneumoniae sp pneum 08/29/24 16:26 Urine, Clean Catch Urine Culture - Final Mixed Gram Pos & Gram Neg Org 08/29/24 13:50 Mucosa - Nose SARS-CoV-2, Influenza & RSV (PCR) - Final RSV Radiography Diagnostic Testing: Radiology Impression Cholangiogram 08/31/24 06:33 IMPRESSION: Satisfactory opacification of the biliary tree and common bile duct which contains a biliary stent. Mild diffuse narrowing/stricturing of the common hepatic duct. See operative report for further details. Reading [facility] GI Narrative: Abdomen- soft, slight tenderness over incisions. HERBERT drain was bloody fluid noted and minimal clots. Incisions c/d/i. No erythema or infection noted. Assessment & Plan Assessment/Plan (1) Choledocholithiasis: (2) Cholelithiasis: (3) Obstructive jaundice: (4) Ascending cholangitis: PLAN: Plan I am following this patient in conjunction with Dr. Burgos. He has independently evaluated this patient. Labs reviewed and are improving. Transition patient over to oral antibiotics Keep HERBERT drain in tact and continue to strip the drain 3 times per shift Increase diet to full liquids Hold Lovenox as HERBERT drain with bloody drainage and only able to perform a subtotal cholecystectomy Encourage ambulation and I.S. We will continue to monitor this patient No discharge planned for today Charges/Coding Visit Charges Inpatient E&M: 99897 Subs Hosp L1 (post-op; no charge)
[2024-09-01] MEDS: metroNIDAZOLE 500 MG Tablet PO ×2 (14:19→21:40)
[2024-09-02 00:44] VITALS: BP 118/72; PULSE 66; RESP 16; TEMP 36.8; O2SAT 93
[2024-09-02 03:24] VITALS: PULSE 75
[2024-09-02 03:59] VITALS: BP 131/77; PULSE 81; RESP 16; TEMP 36.8; O2SAT 96
[2024-09-02] MEDS: Levothyroxine 25 MCG TABLET PO (05:48)
[2024-09-02] MEDS: Acetaminophen 500 MG Tablet 1000 MG PO ×2 (05:48→13:22)
[2024-09-02] MEDS: levoFLOXacin 750 MG Tablet PO (05:48)
[2024-09-02] MEDS: metroNIDAZOLE 500 MG Tablet PO ×2 (05:48→13:22)
[2024-09-02 06:41] LABS: Absolute Lymphocyte Count 0.91 X10^3/uL (0.83-4.51); Absolute Neutrophil Count 4.2 X10^3/uL (2.0-7.7); Basophil# 0.02 X10^3/uL; Basophil% 0.4 % (0-1); Eosinophil# 0.11 X10^3/uL; Eosinophils% 1.9 % (0-5); Hematocrit 32.1 % (37-47); Hemoglobin 10.8 g/dL (12.0-15.0); Lymphocyte # 0.91 X10^3/ul (0.83-4.51); Mean Corp Hgb Conc 33.6 g/dL (32-36); Mean Corpuscular Hgb 27.5 pg (27.0-32.0); Mean Corpuscular Volume 81.7 fL (81-99); Mean Platelet Vol. 10.4 fl (6.2-12.0); Monocyte# 0.43 X10^3/uL; Monocyte% 7.5 % (0-10); NRBC Flagged by Analyzer 0 % (0-5); Neutrophil # 4.19 X10^3/uL (2.7-7.7); Neutrophil % 73.5 % (47-70); Platelet Count 202 K/mm3 (150-450); RBC Distribution Width CV 13.2 % (11.6-14.6); RBC Distribution Width SD 39.5 fl (35.1-43.9); Red Blood Count 3.93 M/mm3 (4.2-5.4); White Blood Count 5.7 K/mm3 (4.4-11.0)
[2024-09-02 07:03] LABS: AST(SGOT) 48 U/L (<=31); Alanine Aminotransfer ALT/SGPT 155 U/L (<=34); Albumin, Serum 2.9 g/dL (3.5-5.0); Alkaline Phosphatase 133 U/L (35-104); Anion Gap 10 (5-15); BUN 6 mg/dL (4-19); BUN/Creat Ratio 12.3 RATIO (10-20); Bilirubin, Direct 0.89 mg/dL (0.00-0.30); Calcium,Total 7.9 mg/dL (7.6-11.0); Carbon Dioxide 21.2 mmol/L (21.0-32.0); Chloride 105 mmol/L (98-108); Creatinine, Serum 0.46 mg/dL (0.70-1.20); EST Glomerular Filtration Rate 117 (>60); Estimated Creatinine Clearance 154.71 ml/min (50-250); Globulin 2.8 g/dL (2.2-4.2); Glucose 93 mg/dL (70-99); Potassium 3.6 mmol/L (3.3-5.1); Protein, Total 5.7 g/dL (5.9-8.4); Sodium Level 137 mmol/L (133-145); Total Bilirubin 1.14 mg/dL (0.00-1.30)
[2024-09-02 07:20] VITALS: PULSE 74
[2024-09-02 07:55] VITALS: BP 124/82; PULSE 69; RESP 16; TEMP 36.9; O2SAT 96
[2024-09-02] MEDS: Na Biphos/Potassium Phosphate PACKET 1 PACKET PO (08:03)
[2024-09-02] MEDS: Thyroid 60 MG Tablet PO (08:03)
--- NOTE | 2024-09-02 10:02 | PCM.PN.SRG ---
Subjective Subjective Patient evaluated resting comfortably in bed. She notes feeling a little more rested. She notes discomfort at the HERBERT drain site and minmal tenderness at the incision sites. She notes tolerating regular diet. Objective Data Objective Data Vital Signs: Vital Signs Temp Pulse Resp BP Pulse Ox O2 Del Method 98.4 F 69 16 124/82 H 96 Room Air 09/02/24 07:55 09/02/24 07:55 09/02/24 07:55 09/02/24 07:55 09/02/24 07:55 09/02/24 07:55 Oxygen Delivery Method Room Air Weight: 203 lb 7.787 oz Body Mass Index (BMI) 37.2 Intake & Output: Intake and Output for Last 24 Hours 09/01/24 09/01/24 09/02/24 00:59 23:59 23:59 Intake Total 375 / 030 282.4328 / 1253.3333 450 / 450 Output Total 29 / 29 35 / 35 10 / 10 Balance 346 / 424 795.8891 / 1218.3333 440 / 440 Lab / Micro Data 09/02/24 05:49 09/02/24 05:49 Labs: Laboratory Results - last 24 hr 09/02/24 05:49: WBC 5.7, RBC 3.93 L, Hgb 10.8 L, Hct 32.1 L, MCV 81.7, MCH 27.5, MCHC 33.6, RDW Std Deviation 39.5, RDW Coeff of Fabio 13.2, Plt Count 202, MPV 10.4, Immature Gran % (Auto) 0.700, Neut % (Auto) 73.5 H, Lymph % (Auto) 16.0 L, Victoria % (Auto) 7.5, Eos % (Auto) 1.9, Baso % (Auto) 0.4, Absolute Neuts (auto) 4.2, Absolute Lymphs (auto) 0.91, Nucleated RBC % 0, Sodium 137, Potassium 3.6, Chloride 105, Carbon Dioxide 21.2, Anion Gap 10, BUN 6, Creatinine 0.46 L, Estim Creat Clear Calc 154.71, Est GFR (MDRD) Non-Af 117, BUN/Creatinine Ratio 12.3, Glucose 93, Calcium 7.9, Total Bilirubin 1.14, Direct Bilirubin 0.89 H, AST 48 H, ALT 155 H, Alkaline Phosphatase 133 H, Total Protein 5.7 L, Albumin 2.9 L, Globulin 2.8 Micro: Microbiology 08/29/24 15:40 Blood Culture (Wb) - Venous Blood Culture - Final GNR lactose special officer 08/29/24 15:11 Blood Culture (Wb) - Venous Blood Culture - Final Klebsiella pneumoniae sp pneum 08/29/24 16:26 Urine, Clean Catch Urine Culture - Final Mixed Gram Pos & Gram Neg Org 08/29/24 13:50 Mucosa - Nose SARS-CoV-2, Influenza & RSV (PCR) - Final RSV Physical Exam GI GI Narrative: Abdomen- HERBERT drain intact with cloudy serous and bloody fluid noted. Incisions c/d/i. No erythema or infection noted. Assessment & Plan Assessment/Plan (1) Choledocholithiasis: (2) Cholelithiasis: (3) Obstructive jaundice: (4) Ascending cholangitis: (5) Hepatic lesion: PLAN: Plan I am following this patient in conjunction with Dr. Burgos. He has independently evaluated this patient. Labs reviewed. HERBERT drain will remain intact at discharge Patient is ready for discharge from a surgical standpoint Discharge instructions are complete Follow-up with Dr. Burgos in 1 week Charges/Coding Visit Charges Inpatient E&M: 05803 Subs Hosp L1 (post-op; no charge)
--- NOTE | 2024-09-02 10:15 | PCM.DC ---
Discharge Instructions Diet Discharge Diet: Low fat / Low cholesterol DC O2, CPAP, BIPAP needs Home O2 Discharge instructions: No Dressing / Incision Discharge Activity: May Not Drive (3-5 days or while taking narcotic pain medication), May Shower and - (No tub bathing for 2 weeks) Lifting Restrictions: 15 pounds for 2 weeks Dressing / Incision Call your doctor if your incision/area has: Continuous Slow Oozing, Sudden Increased Bleeding, Increased Pain/ Swelling, Increased Redness, Foul Smelling Discharge and Swelling at the incision site Call your doctor if you observe: Fever of 101 or Higher Suture Line Care: Avoid Pulling/Pushing and Avoid Pinching/Bending Change Dressing in: 1 day Cleanse incision/area with: Soap & Water Additional Dressing/Incision Instructions:: You may use a sandwich ziploc bag, cut one side, open the bag and secure it over the drain site before showering. Keep a record of output from HERBERT drain and record it on a sheet daily. Write the amount of drainage, date, time and color of the drainage emptied from the drain. Bring record sheet with you to your appointment. Follow Up Care Please Follow Up With: Deacon Burgos MD When: Please contact our office to schedule a 1 week follow-up with Dr. Burgos at [phone], option #2 Test Results: Test results from this visit will be discussed in further detail at your follow-up appointment, if applicable. Discharge Plan Admission Admit Date/Time: 08/29/24 18:22 Primary Reason for Your Visit: Choledocholithiasis Attending Provider: Spencer La Primary Care Provider: Milton Marcus Consulting Providers: Deacon Burgos; Spencer La; Jonathan Plata Instructions Additional Instructions / Restrictions: Cholecystectomy Diet ? Start light with soups, soft bland foods, and low fat foods. You may advance diet as tolerated. Activity ? You may drive in 3-5 days but not while taking narcotic pain medication. ? I encourage walking. You may go up steps, one at a time. ? Do not swim or use hot tubs for 2 weeks. ? For comfort, you may use warm compresses or ice as needed for 15-20 minutes at a time. Lifting ? You may lift up to 15 pounds for 2 weeks. Dressings/Incision ? You may shower OVER your plastic dressings ? Do NOT tub bathe ? Leave plastic dressings on for 1 day. ? When plastic dressings are removed, you will find steri strips. It is okay to continue showering with them in place, pat them dry. ? You may remove steri-strips after 1 week. We recommend getting them soaking wet for easier removal. - You may use a sandwich ziploc bag, cut one side, open the bag and secure it over the drain site before showering. - Keep a record of output from HERBERT drain and record it on a sheet daily. Write the amount of drainage, date, time and color of the drainage emptied from the drain. - Bring record sheet with you to your appointment. Medications ? Anesthesia used during surgery and pain medications may cause constipation. I recommend initiating on the day of surgery a fiber supplement like, Metamucil, Citrucel, FiberCon, Benefiber, or a generic form of these medications. 1 heaping tablespoon in water daily. You may continue to utilize any bowel regimen or oral laxatives that you routinely take. ? As long as you are not intolerant to Tylenol, acetaminophen, ibuprofen, Motrin, Advil, Aleve, or similar medications, I would recommend transitioning to these dcbm-hlx-gseiwsm medicines as soon as possible instead of continued use of narcotic pain medication. Follow up ? You should call [facility] soon after surgery, at [phone] option 2 to make a follow up appointment for 7 days after your surgery. Discharge Orders/Prescriptions Prescriptions: New acetaminophen 500 mg Tablet 1,000 mg PO Q8 Qty: 0 0RF levofloxacin 750 mg Tablet 750 mg PO DAILY 6 Days Qty: 6 0RF No Action thyroid (pork) [[place] Thyroid] 60 mg tablet 60 mg PO DAILY levothyroxine 25 mcg tablet 25 mcg PO SUTUWETHSA Patient Comments: [NO ORIGINAL SIG] metformin 500 mg tablet 500 mg PO DAILY Patient Comments: PT STATES SHE DOES NOT TAKE THIS EVERY DAY cholecalciferol (vitamin D3) 1 tab PO DAILY Patient Comments: PT NOT SURE OF STRENGTH magnesium citrate 125 mg capsule 250 mg PO QHS Referrals / Follow Up: Milton Marcus MD [Primary Care Provider] -
--- NOTE | 2024-09-02 10:54 | PN.HOSP_ITS ---
Reason for Visit Reason for Visit: Diagnoses Liver disease, unspecified (08/29/24) Calculus of gallbladder without cholecystitis without obstruction (08/29/24) Calculus of bile duct without cholangitis or cholecystitis without obstruction (08/29/24) Other cholangitis (08/29/24) Obstruction of bile duct (08/29/24) Objective Data Objective Data Vital Signs: Vital Signs Temp Pulse Resp BP Pulse Ox O2 Del Method 98.4 F 69 16 124/82 H 96 Room Air 09/02/24 07:55 09/02/24 07:55 09/02/24 07:55 09/02/24 07:55 09/02/24 07:55 09/02/24 07:55 Oxygen Delivery Method Room Air Weight: 92.3 kg Body Mass Index (BMI) 37.2 Intake & Output: Intake and Output for Last 24 Hours 09/01/24 09/01/24 09/02/24 00:59 23:59 23:59 Intake Total 375 / 590 938.6098 / 1253.3333 450 / 450 Output Total / 35 / 35 Balance 346 / 427 946.3641 / 1218.3333 440 / 440 Lab / Micro Data 09/02/24 05:49 09/02/24 05:49 Labs: Laboratory Results - last 24 hr 09/02/24 05:49: WBC 5.7, RBC 3.93 L, Hgb 10.8 L, Hct 32.1 L, MCV 81.7, MCH 27.5, MCHC 33.6, RDW Std Deviation 39.5, RDW Coeff of Fabio 13.2, Plt Count 202, MPV 10.4, Immature Gran % (Auto) 0.700, Neut % (Auto) 73.5 H, Lymph % (Auto) 16.0 L, [place] % (Auto) 7.5, Eos % (Auto) 1.9, Baso % (Auto) 0.4, Absolute Neuts (auto) 4.2, Absolute Lymphs (auto) 0.91, Nucleated RBC % 0, Sodium 137, Potassium 3.6, Chloride 105, Carbon Dioxide 21.2, Anion Gap 10, BUN 6, Creatinine 0.46 L, Estim Creat Clear Calc 154.71, Est GFR (MDRD) Non-Af 117, BUN/Creatinine Ratio 12.3, Glucose 93, Calcium 7.9, Total Bilirubin 1.14, Direct Bilirubin 0.89 H, AST 48 H , ALT 155 H, Alkaline Phosphatase 133 H, Total Protein 5.7 L, Albumin 2.9 L, Globulin 2.8 Micro: Microbiology 08/29/24 15:40 Blood Culture (Wb) - Venous Blood Culture - Final GNR lactose family resource management specialist 08/29/24 15:11 Blood Culture (Wb) - Venous Blood Culture - Final Klebsiella pneumoniae sp pneum 08/29/24 16:26 Urine, Clean Catch Urine Culture - Final Mixed Gram Pos & Gram Neg Org 08/29/24 13:50 Mucosa - Nose SARS-CoV-2, Influenza & RSV (PCR) - Final RSV
--- NOTE | 2024-09-02 11:05 | PCM.DC.SUM ---
Providers Date of Admission: 08/29/24 Date of Discharge: 09/02/24 Primary Care Physician: Dr. Milton Marcus MD Consultations 08/29/24 23:53 Consult: Gastroenterology Routine Consulting Provider: Maryan [facility] Reason for Consult: Choledocholithiasis EMERGENT Consult: No Notified: Yes Date Notified: 08/30/24 Time Notified: 06:53 Method of Notification: Text Consult: General Surgery Routine Consulting Provider: Deacon Burgos Reason for Consult: Choledocholithiasis EMERGENT Consult: No Notified: Yes Date Notified: 08/30/24 Time Notified: 06:54 Method of Notification: Text Reason For Visit: CHOLEDOCHOLELITHIASIS W/SUSPECTED CHOLANGITIS Diagnosis Discharge Diagnosis (1) Choledocholithiasis: Status: Acute Code(s): K80.50 - Calculus of bile duct without cholangitis or cholecystitis without obstruction (2) Cholelithiasis: Status: Acute Code(s): K80.20 - Calculus of gallbladder without cholecystitis without obstruction (3) Obstructive jaundice: Status: Acute Code(s): K83.1 - Obstruction of bile duct (4) Ascending cholangitis: Status: Acute Code(s): K83.09 - Other cholangitis (5) Hepatic lesion: Status: Acute Code(s): K76.9 - Liver disease, unspecified Medications at Discharge Home Medications thyroid (pork) 60 mg tablet ([place] Thyroid) 60 mg PO DAILY 08/23/20 cholecalciferol (vitamin D3) 1 tab PO DAILY 08/29/24 levothyroxine 25 mcg tablet 25 mcg PO SUTUWETHSA 08/29/24 magnesium citrate 125 mg capsule 250 mg PO QHS 08/29/24 metformin 500 mg tablet 500 mg PO DAILY 08/29/24 acetaminophen 500 mg tablet 1,000 mg (2 x 500 mg) PO Q8 #0 tabs 09/02/24 levofloxacin 750 mg tablet 750 mg PO DAILY 6 days #6 tabs 09/02/24 Hospital Course Operations cholecystecomy Procedures EGD (With ERCP), EKG and - (CT abdomen pelvis, chest x-ray, gallbladder ultrasound) Summary of Care Provided Minutes Spent on Discharge: 35 Hospital Course: Patient is a 48-year-old female who presented to [facility] ED on 08/29/2024 with abdominal pain with nausea, fever/chills and URI symptoms. Hospital course as noted below. Patient discharged home in stable condition on 09/02. 1. Acute cholangitis secondary to choledocholithiasis ? GI and general surgery followed. CT abdomen pelvis and gallbladder ultrasound on admit showed distended gallbladder with multiple calculi and dilated common bile duct. LFTs with T. bili 4.4, direct bili 2.9, AST 250, ALT 628, alk phos 266. Fevers present on admission. S/p ERCP on 08/29 with stone extraction and common bile duct stenting. S/p laparoscopic cholecystectomy on 08/31. Patient tolerated both procedures well. Labs improved postoperatively. Treated with IV antibiotics here and discharged on p.o. Levaquin to complete 10-day course of antibiotics total, stop date 09/08. 2. RSV infection ? Patient tested positive for RSV on admit. Mild URI symptoms noted. Chest x-ray unremarkable. Treated with symptomatic management. Contact precautions in place. 3. Hypothyroidism ? TSH low but free T4 normal on admit. Continue home Synthroid. Outpatient follow-up for dose adjustments as needed. 4. PCOS ? Continue home metformin on discharge. 5. Class II obesity ? BMI 36 on admit. Complicated hospital course, care and prognosis. Total clinical time spent by myself addressing the patient's medical issues, reviewing all the data, and collaborating with patient's care team: 35 minutes. Weight / BMI Weight Weight: 92.3 kg Body Mass Index (BMI) 37.2 ABG / Lab / Microbiology Data 09/02/24 05:49 09/02/24 05:49 Laboratory: Laboratory Results - last 24 hr 09/02/24 05:49: WBC 5.7, RBC 3.93 L, Hgb 10.8 L, Hct 32.1 L, MCV 81.7, MCH 27.5, MCHC 33.6, RDW Std Deviation 39.5, RDW Coeff of Fabio 13.2, Plt Count 202, MPV 10.4, Immature Gran % (Auto) 0.700, Neut % (Auto) 73.5 H, Lymph % (Auto) 16.0 L, [place] % (Auto) 7.5, Eos % (Auto) 1.9, Baso % (Auto) 0.4, Absolute Neuts (auto) 4.2, Absolute Lymphs (auto) 0.91, Nucleated RBC % 0, Sodium 137, Potassium 3.6, Chloride 105, Carbon Dioxide 21.2, Anion Gap 10, BUN 6, Creatinine 0.46 L, Estim Creat Clear Calc 154.71, Est GFR (MDRD) Non-Af 117, BUN/Creatinine Ratio 12.3, Glucose 93, Calcium 7.9, Total Bilirubin 1.14, Direct Bilirubin 0.89 H, AST 48 H, ALT 155 H, Alkaline Phosphatase 133 H, Total Protein 5.7 L, Albumin 2.9 L, Globulin 2.8 Microbiology: Microbiology 08/29/24 15:40 Blood Culture (Wb) - Venous Blood Culture - Final GNR lactose pig lead melter helper 08/29/24 15:11 Blood Culture (Wb) - Venous Blood Culture - Final Klebsiella pneumoniae sp pneum 08/29/24 16:26 Urine, Clean Catch Urine Culture - Final Mixed Gram Pos & Gram Neg Org 08/29/24 13:50 Mucosa - Nose SARS-CoV-2, Influenza & RSV (PCR) - Final RSV D/C Instructions Discharge Diet: Low fat / Low cholesterol Call your doctor if your incision/area has: Continuous Slow Oozing, Sudden Increased Bleeding, Increased Pain/ Swelling, Increased Redness, Foul Smelling Discharge and Swelling at the incision site Call your doctor if you observe: Fever of 101 or Higher Suture Line Care: Avoid Pulling/Pushing and Avoid Pinching/Bending Cleanse incision/area with: Soap & Water Additional Dressing/Incision Instructions: You may use a sandwich ziploc bag, cut one side, open the bag and secure it over the drain site before showering. Keep a record of output from HERBERT drain and record it on a sheet daily. Write the amount of drainage, date, time and color of the drainage emptied from the drain. Bring record sheet with you to your appointment. DC O2, CPAP, BIPAP Needs Home O2 Discharge instructions: No Please Follow Up With: Deacon Burgos MD When: Please contact our office to schedule a 1 week follow-up with Dr. Burgos at [phone], option #2 Meaningful Use Info Meaningful Use Meaningful Use Diagnoses (Choose all that apply): None applicable Ischemic Stroke Statin Dosing Therapy Reference: STATIN DOSE THERAPY REFERENCE: * Patients > 75 years receive moderate or high dose statin therapy. * Patients 75 years or YOUNGER should receive HIGH intensity statin dose unless contraindicated. You will be required to document reason for non-treatment if statin daily dose does not meet guidelines. HIGH DOSE STATIN THERAPY DAILY Atorvastatin > than or = to 40 mg Rosuvastatin > than or = to 20 mg Amlodipine + Atorvastatin > than or = to 2.5/40 mg Ezetimibe + Simvastatin 10/80 mg Simvastatin 80mg Discharge Plan Admission Admit Date/Time: 08/29/24 18:22 Primary Reason for Your Visit: Choledocholithiasis Attending Provider: Spencer La Primary Care Provider: Milton Marcus Consulting Providers: Deacon Burgos; Spencer La; Jonathan Plata Instructions Additional Instructions / Restrictions: Cholecystectomy Diet ? Start light with soups, soft bland foods, and low fat foods. You may advance diet as tolerated. Activity ? You may drive in 3-5 days but not while taking narcotic pain medication. ? I encourage walking. You may go up steps, one at a time. ? Do not swim or use hot tubs for 2 weeks. ? For comfort, you may use warm compresses or ice as needed for 15-20 minutes at a time. Lifting ? You may lift up to 15 pounds for 2 weeks. Dressings/Incision ? You may shower OVER your plastic dressings ? Do NOT tub bathe ? Leave plastic dressings on for 1 day. ? When plastic dressings are removed, you will find steri strips. It is okay to continue showering with them in place, pat them dry. ? You may remove steri-strips after 1 week. We recommend getting them soaking wet for easier removal. - You may use a sandwich ziploc bag, cut one side, open the bag and secure it over the drain site before showering. - Keep a record of output from HERBERT drain and record it on a sheet daily. Write the amount of drainage, date, time and color of the drainage emptied from the drain. - Bring record sheet with you to your appointment. Medications ? Anesthesia used during surgery and pain medications may cause constipation. I recommend initiating on the day of surgery a fiber supplement like, Metamucil, Citrucel, FiberCon, Benefiber, or a generic form of these medications. 1 heaping tablespoon in water daily. You may continue to utilize any bowel regimen or oral laxatives that you routinely take. ? As long as you are not intolerant to Tylenol, acetaminophen, ibuprofen, Motrin, Advil, Aleve, or similar medications, I would recommend transitioning to these iryi-dfk-ddltepr medicines as soon as possible instead of continued use of narcotic pain medication. Follow up ? You should call [facility] soon after surgery, at [phone] option 2 to make a follow up appointment for 7 days after your surgery. Discharge Orders/Prescriptions Prescriptions: New acetaminophen 500 mg Tablet 1,000 mg PO Q8 Qty: 0 0RF levofloxacin 750 mg Tablet 750 mg PO DAILY 6 Days Qty: 6 0RF Continued thyroid (pork) [[place] Thyroid] 60 mg tablet 60 mg PO DAILY levothyroxine 25 mcg tablet 25 mcg PO SUTUWETHSA Patient Comments: [NO ORIGINAL SIG] metformin 500 mg tablet 500 mg PO DAILY Patient Comments: PT STATES SHE DOES NOT TAKE THIS EVERY DAY cholecalciferol (vitamin D3) 1 tab PO DAILY Patient Comments: PT NOT SURE OF STRENGTH magnesium citrate 125 mg capsule 250 mg PO QHS Referrals / Follow Up: Deacon Burgos MD [Med Staff - Active Staff] - Milton Marcus MD [Primary Care Provider] - Disposition Disposition (needs filled in before D/C Order can be placed): Home, Self Care
--- NOTE | 2024-09-02 11:35 | CASEMGMT ---
RN CM noted DC order, into pt room. Pt denies DC needs, no questions at this time.
--- NOTE | 2024-09-02 12:07 | PHA.DC.MC.R ---
Pharmacy [facility] has performed discharge medication reconciliation and counseling for this patient. The patient's discharge medication list was reviewed for discrepancies and discrepancies were resolved. The patient was counseled on the following discharge medications and changes in medications for homegoing were reviewed. The Reason for Use, instructions for use, and potential side effects were reviewed for all new medications. The patient's questions regarding all of their medications were answered. 1. Levofloxacin 750 mg PO daily x 6 days 2. Acetaminophen 1000 mg PO Q8 The patient was able to verbally demonstrate an understanding of their discharge medications. Medications at Discharge Home Medications thyroid (pork) 60 mg tablet ([place] Thyroid) 60 mg PO DAILY 08/23/20 cholecalciferol (vitamin D3) 1 tab PO DAILY 08/29/24 levothyroxine 25 mcg tablet 25 mcg PO SUTUWETHSA 08/29/24 magnesium citrate 125 mg capsule 250 mg PO QHS 08/29/24 metformin 500 mg tablet 500 mg PO DAILY 08/29/24 acetaminophen 500 mg tablet 1,000 mg (2 x 500 mg) PO Q8 #0 tabs 09/02/24 levofloxacin 750 mg tablet 750 mg PO DAILY 6 days #6 tabs 09/02/24
[2024-09-02 13:11] VITALS: BP 138/93; PULSE 89; RESP 18; TEMP 36.9; O2SAT 98
== END 2024-09-02 14:07 | disposition home or self-care (01) | DRG 261 ==
LOC: ED 15:03 → SDC 17:55 → ACINP 17:57 → PCU 18:01 → SDC 19:07 → PCU 19:07
PROVIDERS: Internal Medicine; Surgery; Admitting Provider Hospitalist; Emergency Provider Emergency Medicine; PCP Family Medicine; Referring Provider Internal Medicine Gastroenterology; Visit Provider Hospitalist
PROC: (CPT 43260; principal; 2024-08-29 20:15)
PROC: 0FC44ZZ Extirpation of Matter from Gallbladder, Percutaneous Endoscopic Approach (ICD-10-PCS; CPT 47610; principal; 2024-08-31 08:00)
DX: K80.71 Calculus of gallbladder and bile duct without cholecystitis with obstruction (principal); B97.4 Respiratory syncytial virus as the cause of diseases classified elsewhere; E11.9 Type 2 diabetes mellitus without complications; K76.0 Fatty (change of) liver, not elsewhere classified; E03.9 Hypothyroidism, unspecified; Z68.38 Body mass index [BMI] 38.0-38.9, adult; K80.31 Calculus of bile duct with cholangitis, unspecified, with obstruction; K83.8 Other specified diseases of biliary tract; K82.8 Other specified diseases of gallbladder; Z79.84 Long term (current) use of oral hypoglycemic drugs; E66.812 Obesity, class 2; Z79.890 Hormone replacement therapy; Z68.37 Body mass index [BMI] 37.0-37.9, adult; Z88.1 Allergy status to other antibiotic agents
CPT/HCPCS: 36415; 71046; 74177; 74300; 74330; 76000; 76705; 80048; 80053; 80076; 81001; 81025; 82962; 83605; 83690; 83735; 84100; 85025; 85027; 85610; 85730; 87040; 87077; 87086; 87088; 87186; 87631; 88304; 88307; 93005; 99284; Q9967; A4216; J2405

== ENCOUNTER → 2024-09-17 | Outpatient (CLI) | payer MEDICAID, SELFPAY ==
--- NOTE | 2024-09-17 07:47 | NM_ITS ---
EXAM: Hepatobiliary scan. CLINICAL HISTORY: Status post laparoscopic cholecystectomy on August 31, 2024. Patient had had acute gangrenous cholecystitis. Patient still has surgical drain in place. Patient is also status post liver biopsy showing benign adenoma. Still has some mild persistent discomfort which is diminishing. COMPARISON: Intraoperative cholangiogram of August 31, 2024 shows small cystic duct remnant.. TECHNIQUE: See below. FINDINGS: Patient was injected intravenously with 5.6 mCi of 99 technetium mebrofenin. Anterior dynamic 62nd composite images were obtained every minute up to 60 minutes post injection. There is normal uptake of the hepatobiliary lesion by the liver. Gallbladder activity is absent. Common bile duct visualized is progressively from 15 minutes onwards. Activity is seen in the small bowel by 23 minutes. No extraneous activity is identified. NM/Hepatobilliary Imaging IMPRESSION: No evidence of postoperative biliary leak. Reading Location: [place] [id number]
== END | disposition home or self-care (01) ==
LOC: NM 07:44
PROVIDERS: PCP Family Medicine; Referring Provider Surgery; Visit Provider Surgery
DX: Z90.49 Acquired absence of other specified parts of digestive tract (principal)
CPT/HCPCS: 78226; A9537

== ENCOUNTER 2024-11-10 11:11 | Day surgery (SDC) | payer MEDICAID, SELFPAY ==
--- NOTE | 2024-11-07 16:49 | PAT.ANE_ITS ---
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 When Was Last Pacemaker Check QUESTION #4 FULL TEXT: You/Your Family Experience fever (hyperthermia) with Anesthesia Last Oral Intake Last Oral intake: Last Oral Intake NPO since Meds taken in AM with sips of water? 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 Female Yes 11/06/24 15:18 HX of Motion Sickness Yes 11/06/24 15:18 HX of N/V After Surgery No 11/06/24 15:18 Non-Smoker Yes 11/06/24 15:18 Duration of Surgery greater No 11/06/24 15:18 than 60 minutes Number of Risk Factors 3 11/06/24 15:18 PONV Score Moderate Risk 11/06/24 15:18 Height & Weight Height & Weight: Anesthesia: Height & Weight Height 5 ft 2 in 08/31/24 06:06 Respiratory Assessment Respiratory Assessment - seamless tube mill operator: Respiratory Tract Infection Hx - seamless tube mill operator Hx Respiratory Tract Infection No 11/06/24 15:18 STOP Sleep Apnea STOP Sleep Apnea - seamless tube mill operator: STOP Sleep Apnea - seamless tube mill operator Hx Hypertension No 11/06/24 15:18 Hx Sleep Apnea No 11/06/24 15:18 CPAP BIPAP Do you snore loudly (louder No 11/06/24 15:18 than talking or can be heard Do you often feel tired/ No 11/06/24 15:18 fatigued/ sleepy during daytime? Has anyone observed you stop No 11/06/24 15:18 breathing during sleep? STOP Results Negative 11/06/24 15:18 QUESTION #5 FULL TEXT : Do you snore loudly (louder than talking or can be heard through closed doors)? 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 Specify any problems Hx of Preganancy in last 3 No 11/06/24 15:18 Months Nurse Filling Out Transfusion VLEHMAN 11/06/24 15:18 & Questions: Date: 11/06/24 11/06/24 15:18 Time: 15:11/06/24 15:18 Patient unable to answer at this time (ie. confused, unrespo /Reproduction History /Reproductive History - seamless tube mill operator: /Reproductive Hx- seamless tube mill operator Hx Now No 11/06/24 15:18 Gestational Age (in weeks): EDC: Hx Hx Para Hx Section SAB No 11/06/24 15:18 PFSH Medical History Wears contact lenses Wears glasses Thyroid disease Anemia Seizures Non-smoker History of stress test History of Holter monitoring Cardiology follow-up encounter PCOS (polycystic ovarian syndrome) Migraine headache Home Medications ?Medication ?Instructions ?Recorded ?Last Taken ?Type thyroid (pork) 60 mg tablet 60 mg PO DAILY 08/23/20 History ([place] Thyroid) levothyroxine 25 mcg tablet 25 mcg PO SUTUWETHSA 08/2908/29/24 History Allergy/AdvReac Type Severity Reaction Status Date / Time Penicillins Allergy Intermediate Hives Verified 11/06/24 15:16 chlorhexidine Allergy Mild Rash Verified 11/06/24 15:16 Family History Other Cancer Diabetes Heart disease Hypertension Surgical History S/P cholecystectomy History of lobectomy of thyroid Social History household members: spouse housing: house Smoking Status: Never smoker Audit: Pertinent Findings Pertinent Findings EKG Perinent findings: LOPEZSeptember ID:[id number] 29-Aug-2024 15:38:06 [facility] FID:[id number] ROUTINE RETRIEVAL 1975 (48 yr) Female White Room:ED-17 Loc:2 Industrial Nurse: MARY Test ind:ARRYTHVent. rate 123 BPM UT interval 134 ms QRS duration 82 ms QT/QTcB 302/432 ms P-R-T axes 56 34 36 Sinus tachycardia Brugada pattern, type 1 Abnormal ECG Confirmed by VINCE HUNT, CARLEEN ([id number]), video news editor PENNY RM ([id number]) on 09/01/2024 6:21:27 AM Referred by: Paolo Waller Confirmed By: CARLEEN CLARKE MD Recommendation Anesthesia Recommendation Anesthesia recommendation: OPTIMIZED for anesthesia
[2024-11-10] VITALS (10 sets, daily range): BP systolic 117–136; BP diastolic 81–91; PULSE 69–90; RESP 16–18; TEMP 36.1–36.6; O2SAT 98–100; BMI 35.9
--- NOTE | 2024-11-10 11:30 | RAD_ITS ---
PROCEDURE: ERCP BILIARY/PANCREAS 11/10/2024 REASON FOR EXAM: ERCP TECHNIQUE: Fluoroscopic services provided for the teacher selection specialist for ERCP. COMPARISON: Prior cholangiogram dated August 31, 2024. FINDINGS: Fluoroscopic services provided. 54.1 seconds of fluoroscopy. 12.74 mGy. 9 images were submitted. RAD/ERCP Biliary/Pancreas IMPRESSION: Intraoperative fluoroscopic services provided for ERCP. Reading Location: [facility]
[2024-11-10 11:53] LABS: Internal QC Validated? YES +Cl - CLEAR BKGD; Pregnancy, Urine Negative Negative
[2024-11-10] MEDS: Lactated Ringers 1,000 ML 15 ML IV (11:53)
--- NOTE | 2024-11-10 11:54 | HP.PCM_ITS ---
HPI - General General Date of Admission: 11/10/24 HPI Narrative CHERYL MARROQUIN, is a 49 F who presented to [facility] ED on 08/29/2024 with abdominal pain with nausea, fever/chills and URI symptoms. She was diagnosed with acute cholangitis secondary to choledocholithiasis. CT abdomen pelvis and gallbladder ultrasound on admit showed distended gallbladder with multiple calculi and dilated common bile duct. LFTs with T. bili 4.4, direct bili 2.9, AST 250, ALT 628, alk phos 266. Fevers present on admission. S/p ERCP on 08/29 with stone extraction and common bile duct stenting. S/p laparoscopic cholecystectomy on 08/31. Patient tolerated both procedures well. Labs improved postoperatively. Treated with IV antibiotics here and discharged on p.o. Levaquin to complete 10-day course of antibiotics total, stop date 09/08. She comes in for repeat ERCP with stent removal. [facility] Medical History Wears contact lenses Wears glasses Thyroid disease Anemia Seizures Non-smoker History of stress test History of Holter monitoring Cardiology follow-up encounter PCOS (polycystic ovarian syndrome) Migraine headache Home Medications ?Medication ?Instructions ?Recorded ?Last Taken ?Type thyroid (pork) 60 mg tablet 60 mg PO DAILY 08/23/20 History ([place] Thyroid) levothyroxine 25 mcg tablet 25 mcg PO SUTUWETHSA 08/2911/10/24 History Allergy/AdvReac Type Severity Reaction Status Date / Time Penicillins Allergy Intermediate Hives Verified 11/10/24 11:43 chlorhexidine Allergy Mild Rash Verified 11/10/24 11:43 Family History Other Cancer Diabetes Heart disease Hypertension Surgical History S/P cholecystectomy History of lobectomy of thyroid Social History household members: spouse housing: house Smoking Status: Never smoker Vital Signs Vital Signs Vital Signs: 11/10/24 11:44 11/10/24 11:44 Temperature 97.8 F Temperature Source Temporal Pulse Rate 72 Respiratory Rate 16 Respiratory Pattern Normal Blood Pressure 122/82 H Blood Pressure Mean 95 Blood Pressure Source Monitor Blood Pressure Position Semi-Fowlers Blood Pressure Location Left Arm Pulse Ox 100 Oxygen Delivery Method Room Air Weight Weight: 196 lb 3.382 oz Body Mass Index (BMI) 35.9 Physical Exam Const alert, oriented x3, no apparent distress and healthy appearing General Appearance: cooperative GI normal to inspection, nondistended, normoactive bowel sounds, soft to palpation, non-tender and non-distended Percussion: normal to percussion Rectal Exam: deferred Results Lab / Micro Data Labs: Laboratory Results - last 24 hr 11/10/24 11:37: Urine Test Negative Assessment & Plan Assessment/Plan (1) Ascending cholangitis: PLAN: She will undergo ERCP with stent removal or exchange. She was explained alternatives, risk, benefits including almost any bleeding, infection, sepsis, perforation, need for emergent urgent . She will have an ASA of 3.
--- NOTE | 2024-11-10 11:58 | PCM.PRE.AN2 ---
ASA Classification* ASA Classification ASA Classification: 3 Assessment & Plan Anesthesia* Anesthesia Assessment Anesthesia Assessment: Discussed sedation and/or anesthesia options, risks, benefits, and alternatives with patient/parents/legal guardian/POA. Questions invited. The patient/parents/legal guardian/POA seems to understand and agrees to proceed with anesthesia plan. Reviewed the physical assessment, medical history, allergy history and patient home medications list prior to surgery/procedure/anesthetic and documented any changes. Performed airway and anesthesia risk assessments. Anesthesia Type Anesthesia Type: MAC (Avoid bupivicaine, procaine, propofol due to Brugada type !.avoid dehydration.) Anesthesia Focused Assessment* Temperature: 97.8 F Pulse Rate: 72 Blood Pressure: 122/82 Respiratory Rate: 16 Pulse Ox: 100 Airway Assessment Mouth opens: >3 cm Mallampati Score: II Focused Labs Anesthesia Preop lab: CBC WBC 5.7 K/mm3 (4.4-11.0) 09/02/24 05:49 09/02/24 RBC 3.93 M/mm3 (4.2-5.4) L 09/02/24 05:49 09/02/24 Hgb 10.8 g/dL (12.0-15.0) L 09/02/24 05:49 09/02/24 Hct 32.1 % (37-47) L 09/02/24 05:49 09/02/24 Plt Count 202 K/mm3 (150-450) 09/02/24 05:49 09/02/24 CHEMISTRY Potassium 3.6 mmol/L (3.3-5.1) 09/02/24 05:49 09/02/24 Sodium 137 mmol/L (133-145) 09/02/24 05:49 09/02/24 Magnesium 2.0 mg/dL (1.5-2.2) 08/31/24 07:30 08/31/24 Phosphorus 2.0 mg/dL (2.7-4.5) L 08/31/24 07:30 08/31/24 BUN 6 mg/dL (4-19) 09/02/24 05:49 09/02/24 Creatinine 0.46 mg/dL (0.70-1.20) L 09/02/24 05:49 09/02/24 Glucose 93 mg/dL (70-99) 09/02/24 05:49 09/02/24 POC Glucose 108 mg/dL (74-106) H 08/30/24 06:31 08/30/24 TSH 0.14 uIU/mL (0.358-3.74) L 09/01/19 12:06 09/01/19 COAG PT 13.5 SECONDS (11.7-14.9) 08/29/24 15:11 08/29/24 Urine Test Negative Negative 11/10/24 11:37 11/10/24 Pre-Assessment Diagnosis/Proposed Procedure Planned Operative Procedure(s): ERCP-STENT REMOVAL Anesthesia History Anesthesia History - gluer and slicer hand: Anesthesia History - gluer and slicer hand Hx Hospitalization Yes: 08/202411/06/24 15:18 Any Problems With Anesthesia No 11/06/24 15:18 Cholinesterase deficiency No 11/06/24 15:18 You/Your Family Experience No 11/06/24 15:18 fever (hyperthermia) with Relationship Recent Exposure to Contagious No 11/10/24 11:44 Disease Does patient have nerve No 11/06/24 15:18 stimulator Patient instructed to have device shut off --Does patient have Pacemaker No 11/10/24 11:44 or ICD? When Was Last Pacemaker Check QUESTION #4 FULL TEXT: You/Your Family Experience fever (hyperthermia) with Anesthesia Last Oral Intake Last Oral intake: Last Oral Intake NPO since 22:00 11/10/24 11:44 Meds taken in AM with sips of Yes 11/10/24 11:44 water? Meds patient instructed to take am of surgery PONV PONV - gluer and slicer hand: PONV - gluer and slicer hand Female Yes 11/06/24 15:18 HX of Motion Sickness Yes 11/06/24 15:18 HX of N/V After Surgery No 11/06/24 15:18 Non-Smoker Yes 11/06/24 15:18 Duration of Surgery greater No 11/06/24 15:18 than 60 minutes Number of Risk Factors 3 11/06/24 15:18 PONV Score Moderate Risk 11/06/24 15:18 Height & Weight Height & Weight: Anesthesia: Height & Weight Height 5 ft 2 in 11/10/24 11:44 Weight: 89 kg 11/10/24 11:44 Body Mass Index (BMI) 35.9 11/10/24 11:44 Respiratory Assessment Respiratory Assessment - gluer and slicer hand: Respiratory Tract Infection Hx - gluer and slicer hand Hx Respiratory Tract Infection No 11/06/24 15:18 STOP Sleep Apnea STOP Sleep Apnea - gluer and slicer hand: STOP Sleep Apnea - gluer and slicer hand Hx Hypertension No 11/06/24 15:18 Hx Sleep Apnea No 11/06/24 15:18 CPAP BIPAP Do you snore loudly (louder No 11/06/24 15:18 than talking or can be heard Do you often feel tired/ No 11/06/24 15:18 fatigued/ sleepy during daytime? Has anyone observed you stop No 11/06/24 15:18 breathing during sleep? STOP Results Negative 11/06/24 15:18 QUESTION #5 FULL TEXT : Do you snore loudly (louder than talking or can be heard through closed doors)? Tobacco Use History Tobacco Use History - gluer and slicer hand: Tobacco Use History - gluer and slicer hand Tobacco Use Smoking Status Never smoker 11/06/24 15:18 Hx Tobacco Use No 11/06/24 15:18 Years Smoking Packs Smoked per Day Smoking Cessation Date was within the last 15 years Hx Smoking Cessation Date Hx Smoking Cessation Counseling Hematologic Medial History Hematologic Hx - gluer and slicer hand: Hematologic Medical Hx - outreach rep Hx of Blood Transfusion No 11/06/24 15:18 Hx of Transfusion in last 3 No 11/06/24 15:18 Months Date of Last Transfusion (if within last 3 months) Ever experience any problems No 11/06/24 15:18 with transfusion(s)? Specify any problems Hx of Preganancy in last 3 No 11/06/24 15:18 Months Nurse Filling Out Transfusion VLEHNORWOOD 11/06/24 15:18 & Questions: Date: 11/06/24 11/06/24 15:18 Time: 15:21 11/06/24 15:18 Patient unable to answer at this time (ie. confused, unrespo /Reproduction History /Reproductive History - gluer and slicer hand: /Reproductive Hx- gluer and slicer hand Hx Now No 11/06/24 15:18 Gestational Age (in weeks): EDC: Hx Hx Para Hx Section SAB No 11/06/24 15:18 Active Medications Active Medications: Current Medications Generic Name Dose Route Start Last Admin Trade Name Freq PRN Reason Stop Dose Admin Lactated Ringer's 1,000 mls @ 15 mls/hr 11/10/24 11:30 11/10/24 11:53 IV 15 mls/hr .Q48H CAROLEE Administration PFSH Medical History Wears contact lenses Wears glasses Thyroid disease Anemia Seizures Non-smoker History of stress test History of Holter monitoring Cardiology follow-up encounter PCOS (polycystic ovarian syndrome) Migraine headache Home Medications ?Medication ?Instructions ?Recorded ?Last Taken ?Type thyroid (pork) 60 mg tablet 60 mg PO DAILY 08/23/20 08/29/24 History ([place] Thyroid) levothyroxine 25 mcg tablet 25 mcg PO SUTUWETHSA 08/29/24 11/10/24 History Allergy/AdvReac Type Severity Reaction Status Date / Time Penicillins Allergy Intermediate Hives Verified 11/10/24 11:43 chlorhexidine Allergy Mild Rash Verified 11/10/24 11:43 Family History Other Cancer Diabetes Heart disease Hypertension Surgical History S/P cholecystectomy History of lobectomy of thyroid Social History household members: spouse housing: house Smoking Status: Never smoker Review of Systems (Anesthesia) ROS Narrative System reviewed and no additional complaints, except as documented.
--- NOTE | 2024-11-10 13:19 | PCM.POST.ANE ---
Anesthesia: Postop Eval I Current Vital Signs Temperature: 97.6 F Pulse Rate: 89 Blood Pressure: 117/90 Respiratory Rate: 16 Pulse Ox: 98 Oxygen Delivery Method: Room Air Assessment Airway patent: Yes Spontaneous unlabored respirations: Yes Mental status: Awake and Calm nausea: No Vomiting: No Anesthesia Complication: No Fluid Hydration Crystalloid volume administer (ml): 500 Total IV fluid infused: 500 Progress Note Anesthesia document: Postop Eval 1 completed: Yes
--- NOTE | 2024-11-10 13:21 | POSTOPAN2_ITS ---
Anesthesia Postop Eval I Sum Postop Eval Completion status Anesthesia document: Postop Eval 1 completed: Yes Anesthesia Postop Eval I Summary Anesthesia Postop Eval I Summary: Anesthesia Postop Eval I: Assessment Summary Airway patent Yes 11/10/24 13:19 CARPENTER [email or web address] Spontaneous unlabored Yes 11/10/24 13:19 CARPENTER [email or web address] respirations Mental status Awake,Calm 11/10/24 13:19 CARPENTER [email or web address] nausea No 11/10/24 13:19 CARPENTER [email or web address] Vomiting No 11/10/24 13:19 CARPENTER [email or web address] Anesthesia Postop Eval I: Fluid Summary Crystalloid volume administer 500 11/10/24 13:19 CARPENTER [email or web address] (ml) Colloids volume administered ( ml) Blood Product volume administered (ml) Total IV fluid infused 500 11/10/24 13:19 CARPENTER [email or web address] Anesthesia Postop Eval I: Summary Notes Anesthesia Complication No 11/10/24 13:19 CARPENTER [email or web address] Anesthesia Complication Comment: Post-operative progress note Anesthesia: Postop Eval II Evaluation Mental status: Awake Pain Level: 0 nausea: No Vomiting: No
--- NOTE | 2024-11-10 13:21 | OP.ERCP_ITS ---
Patient Name: Galilea Glass Procedure Date: 11/10/2024 12:29 PM Date of : 1975 Age: 49 Procedure: ERCP Indications: Abdominal pain of suspected biliary origin, Jaundice, Elevated liver enzymes, Stent removal, Biliary stent removal Providers: Paolo Waller DO Referring MD: Milton Marcus Medicines: General Anesthesia Patient Profile: This is a 49 year old female. Refer to note in patient chart for documentation of history and physical. Patient has symptoms of acute right upper quadrant abdominal pain and acute dyspepsia. Complications: No immediate complications. Procedure: Pre-Anesthesia Assessment: - Prior to the procedure, a History and Physical was performed, and patient medications and allergies were reviewed. The patient is competent. The risks and benefits of the procedure and the sedation options and risks were discussed with the patient. All questions were answered and informed consent was obtained. Patient identification and proposed procedure were verified by the physician in the pre-procedure area. Mental Status Examination: alert and oriented. Airway Examination: normal oropharyngeal airway and neck mobility. Respiratory Examination: clear to auscultation. CV Examination: normal. Prophylactic Antibiotics: The patient does not require prophylactic antibiotics. Prior Anticoagulants: The patient has taken no anticoagulant or antiplatelet agents except for NSAID medication. ASA Grade Assessment: II - A patient with mild systemic disease. After reviewing the risks and benefits, the patient was deemed in satisfactory condition to undergo the procedure. The anesthesia plan was to use minimal sedation / analgesia (anxiolysis). Immediately prior to administration of medications, the patient was re-assessed for adequacy to receive sedatives. The heart rate, respiratory rate, oxygen saturations, blood pressure, adequacy of pulmonary ventilation, and response to care were monitored throughout the procedure. The physical status of the patient was re-assessed after the procedure. After obtaining informed consent, the scope was passed under direct vision. Throughout the procedure, the patient's blood pressure, pulse, and oxygen saturations were monitored continuously. The Duodenoscope was introduced through the mouth, and advanced to the duodenum and used to inject contrast into the bile duct and ventral pancreatic duct. The ERCP was accomplished without difficulty. The patient tolerated the procedure well. Scope In: 12:56:35 PM Scope Out: 1:04:45 PM Total Procedure Duration Time 0 hours 8 minutes 10 seconds Findings: The mainframe programmer film was normal. The esophagus was successfully intubated under direct vision. The scope was advanced to a normal major papilla in the descending duodenum without detailed examination of the pharynx, larynx and associated structures, and upper GI tract. The upper GI tract was grossly normal. The bile duct was deeply cannulated with the short-nosed traction sphincterotome. Contrast was injected. I personally interpreted the bile duct images. There was brisk flow of contrast through the ducts. Image quality was excellent. Contrast extended to the entire biliary tree. A long 0.021 inch Jagwire was passed into the biliary tree. A 5 mm biliary sphincterotomy was made with a braided traction (standard) sphincterotome using ERBE electrocautery. There was no post-sphincterotomy bleeding. To discover objects, the biliary tree was swept with a 12 mm balloon starting at the upper third of the main bile duct, middle third of the main bile duct, lower third of the main duct, cystic duct, left intrahepatic duct(s), left main hepatic duct, right intrahepatic duct(s) and right main hepatic duct. Sludge was swept from the duct. All stones were removed. One stent was removed from the biliary tree using a snare and sent for cytology. The stent was found to be occluded via the water column test. Impression: - Choledocholithiasis was found. Complete removal was accomplished by biliary sphincterotomy and balloon extraction. - A biliary sphincterotomy was performed. - The biliary tree was swept. - One stent was removed from the biliary tree. Procedure Code(s): --- Professional --- 85003, Endoscopic retrograde cholangiopancreatography (ERCP); with removal of foreign body(s) or stent(s) from biliary/pancreatic duct(s) 48421, Endoscopic retrograde cholangiopancreatography (ERCP); with removal of calculi/debris from biliary/pancreatic duct(s) 87242, Endoscopic retrograde cholangiopancreatography (ERCP); with sphincterotomy/papillotomy 87940, 26, Endoscopic catheterization of the biliary ductal system, radiological supervision and interpretation CPT copyright 2021 [employer]. All rights reserved. The codes documented in this report are preliminary and upon hall porter review may be revised to meet current compliance requirements. Paolo Waller DO 11/10/2024 1:21:06 PM This report has been signed electronically. Number of Addenda: 0 Note Initiated On: 11/10/2024 12:29 PM
--- NOTE | 2024-11-10 13:21 | OP.CCLET_ITS ---
11/10/2024 Milton Marcus Re : ERCP procedure for September Quan Deashanique Angeline This procedure was performed on Sunday, November 10, 2024. My impressions and recommendations are as follows: Impressions : - Choledocholithiasis was found. Complete removal was accomplished by biliary sphincterotomy and balloon extraction. - A biliary sphincterotomy was performed. - The biliary tree was swept. - One stent was removed from the biliary tree. Recommendations : My findings are described in the full procedure note, which is enclosed. If I can be of further assistance, please feel free to contact me at . Sincerely, Paolo Waller, 11/10/2024 1:21:06 PM This report has been signed electronically.
--- NOTE | 2024-11-10 13:21 | PCM.POSTANE2 ---
Anesthesia Postop Eval I Sum Postop Eval Completion status Anesthesia document: Postop Eval 1 completed: Yes Anesthesia Postop Eval I Summary Anesthesia Postop Eval I Summary: Anesthesia Postop Eval I: Assessment Summary Airway patent Yes 11/10/24 13:19 NURSE [email or web address] Spontaneous unlabored Yes 11/10/24 13:19 NURSE [email or web address].SOBR respirations Mental status Awake,Calm 11/10/24 13:19 NURSE [email or web address].SOBR nausea No 11/10/24 13:19 NURSE [email or web address].SOBR Vomiting No 11/10/24 13:19 NURSE [email or web address].SOBR Anesthesia Postop Eval I: Fluid Summary Crystalloid volume administer 500 11/10/24 13:19 NURSE [email or web address].SOBR (ml) Colloids volume administered ( ml) Blood Product volume administered (ml) Total IV fluid infused 500 11/10/24 13:19 NURSE [email or web address].SOBR Anesthesia Postop Eval I: Summary Notes Anesthesia Complication No 11/10/24 13:19 NURSE [email or web address].SOBR Anesthesia Complication Comment: Post-operative progress note Anesthesia: Postop Eval II Evaluation Mental status: Awake Pain Level: 0 nausea: No Vomiting: No
--- NOTE | 2024-11-10 13:28 | FLU_PTH ---
PATIENT: LOPEZSEPTEMBER RENITA LOC: EN U#:[id number] AGE/SX: 49/F ROOM: RE11/10/[address]: Dr. Paolo Waller DO : 1975 BED: DIS: 11/10/2024 SPEC #: [id number] RECD: 11/10/24 13:28 STATUS: DANY YI #: [id number] KAYODE: 11/10/24 13:[address]: Paolo Waller DEPT: CYTOLOGY RECD BY: Hanh Johnson ENTERED: 11/10/24 13:43 SP TYPE: Fluid OTHR DR: Dr. Milton Marcus MD Tissues: Biliary tract, NOS Procedures: Special Stain Group II Surgery Specimen Level IV Cytospin Fluid HEADER OPERATION: ERCP, stent removal, balloon cholangiogram PRE-OP DIAGNOSIS: Ascending cholangitis TISSUE SUBMITTED: A- Biliary stent for cytology DIAGNOSIS CYTOLOGY A. Biliary stent: * No malignant cells are identified CYTOLOGY STUDY Slides are reviewed. CYTOLOGY GROSS A. Received is 1 blue stent, 10cm long with 0.2 ml of yellow-brown thick material labeled with the patient's name and and designated per the requisition as Biliary stent. Submitted for cytology and cell block preparation. Mr 11/10/2024 CPT: 50808
== END 2024-11-10 15:07 | disposition home or self-care (01) ==
LOC: EN 11:11 → AC 11:13
PROVIDERS: Anesthesiology; PCP Family Medicine; Referring Provider Family Medicine; Visit Provider Internal Medicine Gastroenterology
PROC: (CPT 43260; principal; 2024-11-10 12:10)
DX: K80.50 Calculus of bile duct without cholangitis or cholecystitis without obstruction (principal); Z90.49 Acquired absence of other specified parts of digestive tract; Z79.890 Hormone replacement therapy; R17 Unspecified jaundice
CPT/HCPCS: 43264; 43262; 43275; 74330; 76000; 81025; 88108; 88305; 88313; J2405

== ENCOUNTER → 2024-11-27 | Outpatient (CLI) | payer MEDICAID, SELFPAY ==
[2024-11-27 16:35] LABS: ALB/GLOB Ratio 1.6 RATIO (0.9-2.4); AST(SGOT) 21 U/L (<=31); Alanine Aminotransfer ALT/SGPT 22 U/L (<=34); Alkaline Phosphatase 58 U/L (35-104); Anion Gap 10 (5-15); BUN 11 mg/dL (4-19); BUN/Creat Ratio 18.9 RATIO (10-20); Calcium,Total 8.6 mg/dL (7.6-11.0); Chloride 105 mmol/L (98-108); Creatinine, Serum 0.56 mg/dL (0.70-1.20); EST Glomerular Filtration Rate 110 (>60); Globulin 2.6 g/dL (2.2-4.2); Glucose 79 mg/dL (70-99); Potassium 3.9 mmol/L (3.3-5.1); Protein, Total 6.5 g/dL (5.9-8.4); Sodium Level 139 mmol/L (133-145); Total Bilirubin 0.76 mg/dL (0.00-1.30)
[2024-11-27 17:55] LABS: Amylase 45 U/L (28-100); CRP < 3.00 mg/L (0.0-3.0); Lipase 19 U/L (13-75)
[2024-11-27 18:22] LABS: Absolute Lymphocyte Count 2.42 X10^3/uL (0.83-4.51); Absolute Neutrophil Count 5.3 X10^3/uL (2.0-7.7); Basophil# 0.02 X10^3/uL; Basophil% 0.2 % (0-1); Eosinophil# 0.13 X10^3/uL; Eosinophils% 1.6 % (0-5); Erythrocyte Sedimentation Rate 3 mm/hr (0-30); Hematocrit 38.5 % (37-47); Hemoglobin 12.8 g/dL (12.0-15.0); Lymphocyte # 2.42 X10^3/ul (0.83-4.51); Mean Corp Hgb Conc 33.2 g/dL (32-36); Mean Corpuscular Hgb 27.8 pg (27.0-32.0); Mean Corpuscular Volume 83.5 fL (81-99); Mean Platelet Vol. 11.1 fl (6.2-12.0); NRBC Flagged by Analyzer 0 % (0-5); Neutrophil # 5.26 X10^3/uL (2.7-7.7); Platelet Count 296 K/mm3 (150-450); RBC Distribution Width CV 13.4 % (11.6-14.6); RBC Distribution Width SD 40.6 fl (35.1-43.9); Red Blood Count 4.61 M/mm3 (4.2-5.4); White Blood Count 8.4 K/mm3 (4.4-11.0)
== END | disposition home or self-care (01) ==
LOC: LAB 14:58
PROVIDERS: PCP Family Medicine; Referring Provider Internal Medicine Gastroenterology; Visit Provider Internal Medicine Gastroenterology
DX: Z90.49 Acquired absence of other specified parts of digestive tract (principal)
CPT/HCPCS: 36415; 80053; 82150; 83690; 85025; 85652; 86140

== ENCOUNTER → 2024-12-03 | Outpatient (CLI) | payer MEDICAID, SELFPAY ==
--- NOTE | 2024-12-03 08:04 | US_ITS ---
PROCEDURE: ABDOMEN LIMITED 12/03/2024 REASON FOR EXAM: RUQ PAIN S/P CHOLECYSTECTOMY TECHNIQUE: Right upper quadrant abdominal ultrasound harris-scale images with color doppler. PATIENT PREPARATION: Per protocol COMPARISON: August 29, 2020 FINDINGS: Liver: The liver shows increased echogenicity consistent with fatty infiltration or liver disease. There is a heterogeneous solid mass in the mid right hepatic lobe measuring 2.8 x 2.9 x 2.3 cm. Gallbladder: There is a wall echo shadow complex density at the gallbladder fossa measuring 2.66 cm. Wall thickness = 0.34 cm. There is no visible pericholecystic fluid Common bile duct: 0.35 cm Pancreas: Unremarkable Kidneys: The right kidney measures 11.3 cm. IVC: Not included Peritoneal Findings: There is no free fluid US/Abdomen Limited IMPRESSION: The liver shows increased echogenicity consistent with fatty infiltration or li koki disease. There is a heterogeneous solid mass in the mid right hepatic lobe measuring 2.8 x 2.9 x 2.3 cm, similar to the prior. There is a wall echo shadow complex density at the gallbladder fossa measuring 2.66 cm. The differential includes postsurgical change, mass, and gallstone. MRI with dynamic contrast enhancement is recommen ded for further characterization of this finding and the liver lesion. Reading Location: [facility]
--- OUTSIDE RECORDS SUMMARY | 2024-12-03 08:33 | XMS RPT_ITS | CCD ---
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 [id number] Ordering Dr: Deacon Burgos MD EXAM: Hepatobiliary scan. CLINICAL HISTORY: Status post laparoscopic cholecystectomy on August 31, 2024. Patient had had acute gangrenous cholecystitis. Patient still has surgical drain in place. Patient is also status post liver biopsy showing benign adenoma. Still has some mild persistent discomfort which is diminishing. COMPARISON: Intraoperative cholangiogram of August 31, 2024 shows small cystic duct remnant.. TECHNIQUE: See below. FINDINGS: Patient was injected intravenously with 5.6 mCi of 99 technetium mebrofenin. Anterior dynamic 62nd composite images were obtained every minute up to 60 minutes post injection. There is normal uptake of the hepatobiliary lesion by the liver. Gallbladder activity is absent. Common bile duct visualized is progressively from 15 minutes onwards. Activity is seen in the small bowel by 23 minutes. No extraneous activity is identified. NM/Hepatobilliary Imaging IMPRESSION: No evidence of postoperative biliary leak. Reading Location: [place] [address] CC: Dr. Deacon Burgos MD; Dr. Milton Cody MD Lunchroom Mother: Signed Normal [facility] Surgery Visit Reporton 09-10 Surgery Visit Report [facility] [address] [place] [address]. [address] [place] [address] OFFICE VISIT Date of Service: 09/10/24 MR#: [id number] Acct: [id number] Name: GALILEA Glass Rep #: [id number] : 1975 Provider: Dr. Deacon tee MD Age/Sex: 49/F Location: [facility] Status: Signed Intake Vital Signs 08/31/24 06:06 Height 5 ft 2 in Intake Visit Reasons: LAP DO 3-9 Chief Complaint: lap do 3-9 Is patient in pain?: Yes (tender near drain) Allergies Penicillins Allergy (Intermediate, Verified 09/10/24 12:38) Hives chlorhexidine Allergy (Mild, Verified 09/10/24 12:38) Rash Medications ???Medication ???Instructions ???Recorded ???Confirmed ???Type thyroid (pork) 60 mg tablet 60 mg PO DAILY 08/23/20 08/29/24 H istory ([place] Thyroid) cholecalciferol (vitamin D3) 1 tab PO DAILY 08/29/24 08/29/24 H istory levothyroxine 25 mcg tablet 25 mcg PO SUTUWETHSA 08/29/2401/16 History magnesium citrate 125 mg capsule 250 mg PO QHS 08/29/24 08/29/24 Hi story metformin 500 mg tablet 500 mg PO DAILY 08/29/24 08/29/24 History acetaminophen 500 mg tablet 1,000 mg (2 x 500 mg) PO Q8 #0 tab s 09/02/24 Rx nystatin 100,000 unit/mL oral 1 ml PO ONCE #60 mL 09/10/2409/10 Rx suspension Subjective Details: Patient presents following laparoscopic subtotal cholecystectomy with liver biopsy on 08/31/2024. Since hospital discharge they have been doing well. They report much less postoperative pain. She does note some right upper quadrant discomfort persist but largely this is centered around her postoperative drain. She also describes some mild discomfort that worked its way through with eating but this is also getting better. They report tolerance of a low-fat diet. Concerning their bowel movements, they report that these have become more frequent and are experienced every day as soft, formed stools. They have no wound concerns but notes some irritation about the drain site. She brings a log of her drain outputs. She denies any experience of chills and does not believe she has had any fevers but has not taken her temperature at home. She did complete his course of prescribed antibiotics. Lastly, she reports that food has begun tasting differently and she is some soreness on the back of her tongue. She has tried several ucvh-blz-svvqvsa methods to improve the situation but with no relief Objective Details: Constitutional: No acute distress, appreciative HEENT: Evidence of thrush on surface of patient's tongue Abdomen: Patient with original dressing about her drain in the right upper quadrant as well as Steri-Strips still intact over port sites. There was crusted blood beneath patient's drain site dressing but otherwise only mild inflammatory change from local irritation with the drain tubing at the skin. There is some clot and debris within the drain tubing and the drain bulb contains just some thin brown watery fluid that does not appear bilious. The remaining port sites remain well- approximated and well-healing. Abdomen is nondistended, soft, nontender to palpation. Coding Level of Care Code Global Post Op Diagnoses S/P cholecystectomy Z90.49 Liver lesion, right lobe K76.9 Oral thrush B37.0 PFSH Medical History (Updated 09/10/24 @ 18:[address] Deacon Burgos MD) PCOS (polycystic ovarian syndrome) Migraine headache Surgical History (Updated 09/10/24 @ 18:[address] Deacon Burgos MD) S/P cholecystectomy History of lobectomy of thyroid Family History Other Cancer Diabetes Heart disease Hypertension Social History household members: spouse housing: house Smoking Status: Never smoker Assessment and Plan (No Qualifiers) Assessment and Plan (1) S/P cholecystectomy: Status: Acute Comment: Laparoscopic SUBTOTAL cholecystectomy. Patient presents for postoperative visit following the above procedure. She has done well and clinically is markedly improved with no residual abdominal discomfort on exam. She is well-healing with that exam. I do not see evidence of a bile leak in her drain. Further, her drain log suggest decreasing volume from the drain. I did inform her that I would like to formally study this with HIDA imaging to confirm no bile leak before the drain is removed. Final pathology from her operation showed evidence of acute gangrenous cholecystitis. I suspect there is also an underlying chronic component as patient points to a number of prior episodes of abdominal pain that went unexplained. Plan: ??? Patient to continue drain maintenance and drain log ??? HIDA scan ??? Clinic visit following HIDA scan. (2) Liver lesion, right lobe: Status: Acute Commen (more content not included)... Normal [facility] Absolute lymphocyte countOrd ered By: Jonathan Plata on 09-02-2024 Lymphocytes Auto (Unsp spec) [#/Vol] 0.91 10*3/uL 0.83-4.51 [facility] Absolute neutrophil countOrd ered By: Jonathan Plata on 09-02-2024 Neutrophils (Bld) [#/Vol] 4.2 10*3/uL 2.0-7.7 [facility] Anion gap in Serum or Plasma Ordered By: Jonathan Plata on 09-02-2024 Anion gap [Moles/Vol] 10 mmol/L 5-15 [facility] Automated lymphocyte count a s percentage of total leukocytesOrdered By: Jonathan Plata on 09-02-2024 Lymphocytes/100 WBC Auto (Unsp spec) 16.0 % Low 19-41 [facility] BUN/creatinine ratioOrdered By: Jonathan Plata on 09-02-2024 Urea nitrogen/Creatinine [Mass ratio] 12.3 mg/mg 10- [facility] Basic Metabolic Profile (BMP )on 09-02-2024 BUN/CRE 12.3 RATIO Normal - [facility] Comment on above: Performed By: #### L 500.2500, L100.0100, L500.3400 ####[facility] [address] [place], [address] Calcium [Mass/Vol] 7.9 mg/dL Normal 7.6-11.0 [facility] Comment on above: Performed By: #### L 500.2500, L100.0100, L500.3400 ####[facility] [address] [place], [address] Chloride [Moles/Vol] 105 mmol/L Normal 98-108 [facility] Comment on above: Performed By: #### L 500.2500, L100.0100, L500.3400 ####[facility] [address] [place], [address] CO2 [Moles/Vol] 21.2 mmol/L Normal 21.0-32.0 [facility] Comment on above: Performed By: #### L 500.2500, L100.0100, L500.3400 ####[facility] [address] [place], [address] Creatinine [Mass/Vol] 0.46 mg/dL Low 0.70-1.20 [facility] Comment on above: Performed By: #### L 500.2500, L100.0100, L500.3400 ####[facility] [address] [place], [address] ECRCL 154.71 ml/min Normal 50-250 [facility] Comment on above: Performed By: #### L 500.2500, L100.0100, L500.3400 ####[facility] [address] [place], [address] GAP 10 Normal 5-15 [facility] Comment on above: Performed By: #### L 500.2500, L100.0100, L500.3400 ####[facility] [address] [place], [address] GFR/1.73 sq M.predicted among non-blacks MDRD (S/P/Bld) [Vol rate/Area] 117 mL/min/{1.73_m2} Normal >60 [facility] Comment on above: Result Comment: mL/m in/1.73m2 CKD-EPI Creatinine Equation (2020) Performed By: #### L 500.2500, L100.0100, L500.3400 ####[facility] [address] [place], [address] Glucose [Mass/Vol] 93 mg/dL Normal 70-99 [facility] Comment on above: Performed By: #### L 500.2500, L100.0100, L500.3400 ####[facility] [address] [place], [address] Potassium [Moles/Vol] 3.6 mmol/L Normal 3.3-5.1 [facility] Comment on above: Performed By: #### L 500.2500, L100.0100, L500.3400 ####[facility] [address] [place], [address] Sodium [Moles/Vol] 137 mmol/L Normal 133-145 [facility] Comment on above: Performed By: #### L 500.2500, L100.0100, L500.3400 ####[facility] [address] [place], [address] Urea nitrogen [Mass/Vol] 6 mg/dL Normal 4-19 [facility] Comment on above: Performed By: #### L 500.2500, L100.0100, L500.3400 ####[facility] [address] [place], [address] Basophil percentageOrdered B y: Jonathan Plata on 09-02-2024 Basophils/100 WBC (Bld) 0.4 % 0-1 [facility] Bilirubin directOrdered By: Jonathan Plata on 09-02-2024 Bilirubin.direct [Mass/Vol] 0.89 mg/dL High 0.00-0.30 [facility] Bilirubin, totalOrdered By: Jonathan Plata on 09-02-2024 Bilirubin [Mass/Vol] 1.14 mg/dL 0.00-1.30 [facility] CBC W/Diff, Automatedon 08-23 Absolute Lymph 0.91 X10 3/uL Normal 0.83-4.51 [facility] Comment on above: Performed By: #### L 500.2500, L100.0100, L500.3400 ####[facility] [address] [place], [address] Absolute Neut 4.2 X10 3/uL Normal 2.0-7.7 [facility] Comment on above: Performed By: #### L 500.2500, L100.0100, L500.3400 ####[facility] [address] [place], [address] Basophils/100 WBC (Bld) 0.4 % Normal 0-1 [facility] Comment on above: Performed By: #### L 500.2500, L100.0100, L500.3400 ####[facility] [address] [place], [address] Eosinophils/100 WBC (Bld) 1.9 % Normal 0-5 [facility] Comment on above: Performed By: #### L 500.2500, L100.0100, L500.3400 ####[facility] [address] [place], [address] Erythrocyte distribution width (RBC) [Ratio] 13.2 % Normal 11.6-14.6 [facility] Comment on above: Performed By: #### L 500.2500, L100.0100, L500.3400 ####[facility] [address] [place], [address] Hematocrit (Bld) [Volume fraction] 32.1 % Low 37-47 [facility] Comment on above: Performed By: #### L 500.2500, L100.0100, L500.3400 ####[facility] [address] [place], [address] Hemoglobin (Bld) [Mass/Vol] 10.8 g/dL Low 12.0-15.0 [facility] Comment on above: Performed By: #### L 500.2500, L100.0100, L500.3400 ####[facility] [address] [place], [address] IG% 0.700 Normal 0.0-0.9 [facility] Comment on above: Result Comment: IG% - Immature Granulocytes (promyelocytes, myelocytes and metamyelocytes) > 1% indicates that a LEFT SHIFT is Present. Performed By: #### L 500.2500, L100.0100, L500.3400 ####[facility] [address] [place], [address] Lymphocytes/100 WBC (Bld) 16.0 % Low 19-41 [facility] Comment on above: Performed By: #### L 500.2500, L100.0100, L500.3400 ####[facility] [address] [place], [address] MCH (RBC) [Entitic mass] 27.5 pg Normal 27.0-32.0 [facility] Comment on above: Performed By: #### L 500.2500, L100.0100, L500.3400 ####[facility] [address] [place], [address] MCHC (RBC) [Mass/Vol] 33.6 g/dL Normal 32-36 [facility] Comment on above: Performed By: #### L 500.2500, L100.0100, L500.3400 ####[facility] [address] [place], [address] MCV (RBC) [Entitic vol] 81.7 fL Normal 81-99 [facility] Comment on above: Performed By: #### L 500.2500, L100.0100, L500.3400 ####[facility] [address] [place], [address] Monocytes/100 WBC (Bld) 7.5 % Normal 0-10 [facility] Comment on above: Performed By: #### L 500.2500, L100.0100, L500.3400 ####[facility] [address] [place], [address] Neutrophils/100 WBC (Bld) 73.5 % High 47-70 [facility] Comment on above: Performed By: #### L 500.2500, L100.0100, L500.3400 ####[facility] [facility] [address] [place], [address] Nucleated RBC (Bld) [#/Vol] 0 10*3/uL Normal 0-5 [facility] Comment on above: Performed By: #### L 500.2500, L100.0100, L500.3400 ####[facility] [address] [place], [address] Platelet mean volume (Bld) [Entitic vol] 10.4 fL Normal 6.2-12.0 [facility] Comment on above: Performed By: #### L 500.2500, L100.0100, L500.3400 ####[facility] [address] [place], [address] Platelets (Bld) [#/Vol] 202 10*3/uL Normal 150-450 [facility] Comment on above: Performed By: #### L 500.2500, L100.0100, L500.3400 ####[facility] [address] [place], [address] RBC (Bld) [#/Vol] 3.93 10*6/uL Low 4.2-5.4 [facility] Comment on above: Performed By: #### L 500.2500, L100.0100, L500.3400 ####[facility] [address] [place], [address] RDW SD 39.5 fl Normal 35.1-43.9 [facility] Comment on above: Performed By: #### L 500.2500, L100.0100, L500.3400 ####[facility] [address] [place], [address] WBC (Bld) [#/Vol] 5.7 10*3/uL Normal 4.4-11.0 [facility] Comment on above: Performed By: #### L 500.2500, L100.0100, L500.3400 ####[facility] [address] [place], [address] Carbon dioxide, total [Moles /volume] in Central venous bloodOrdered By: Jonathan Plata on 09-02-2024 CO2 [Moles/Vol] 21.2 mmol/L 21.0-32.0 [facility] Chloride assayOrdered By: Kyle Plata on 09-02-2024 Chloride [Moles/Vol] 105 mmol/L 98-108 [facility] Discharge Instructionon 08-23 Discharge Instruction [facility] Medical Records Department [address] [place] [address] Instructions for Home/Discharge Instructions 09/02/24 1104 MR#: [id number] Acct: [id number] Name: GALILEA Glass Rep #: [id number] : 1975 48 From: Spencer La DO PCP: Dr. Milton Cody MD Status:ADM IN Discharge Instructions Diet Discharge Diet: Low fat / Low cholesterol DC O2, CPAP, BIPAP needs Home O2 Discharge instructions: No Dressing / Incision Call your doctor if your incision/area has: Continuous Slow Oozing, Sudden Increased Bleeding, Increased Pain/ Swelling, Increased Redness, Foul Smelling Discharge and Swelling at the incision site Call your doctor if you observe: Fever of 101 or Higher Suture Line Care: Avoid Pulling/Pushing and Avoid Pinching/Bending Cleanse incision/area with: Soap Water Additional Dressing/Incision Instructions:: You may use a sandwich ziploc bag, cut one side, open the bag and secure it over the drain site before showering. Keep a record of output from HERBERT drain and record it on a sheet daily. Write the amount of drainage, date, time and color of the drainage emptied from the drain. Bring record sheet with you to your appointment. Follow Up Care Please Follow Up With: Deacon Burgos MD Test Results: Test results from this visit will be discussed in further detail at your follow-up appointment, if applicable. Discharge Plan Admission Admit Date/Time: 08/29/24 18:22 Primary Reason for Your Visit: Choledocholithiasis Attending Provider: Spencer La Primary Care Provider: Milton Cody Consulting Providers: Deacon Burgos; Spencer La; Jonathan Plata Instructions Additional Instructions / Restrictions: Cholecystectomy Diet ??? Start light with soups, soft bland foods, and low fat foods. You may advance diet as tolerated. Activity ??? You may drive in 3-5 days but not while taking narcotic pain medication. ??? I encourage walking. You may go up steps, one at a time. ??? Do not swim or use hot tubs for 2 weeks. ??? For comfort, you may use warm compresses or ice as needed for 15-20 minutes at a time. Lifting ??? You may lift up to 15 pounds for 2 weeks. Dressings/Incision ??? You may shower OVER your plastic dressings ??? Do NOT tub bathe ??? Leave plastic dressings on for 1 day. ??? When plastic dressings are removed, you will find steri strips. It is okay to continue showering with them in place, pat them dry. ??? You may remove steri-strips after 1 week. We recommend getting them soaking wet for easier removal. - You may use a sandwich ziploc bag, cut one side, open the bag and secure it over the drain site before showering. - Keep a record of output from HERBERT drain and record it on a sheet daily. Write the amount of drainage, date, time and color of the drainage emptied from the drain. - Bring record sheet with you to your appointment. Medications ??? Anesthesia used during surgery and pain medications may cause constipation. I recommend initiating on the day of surgery a fiber supplement like, Metamucil, Citrucel, FiberCon, Benefiber, or a generic form of these medications. 1 heaping tablespoon in water daily. You may continue to utilize any bowel regimen or oral laxatives that you routinely take. ??? As long as you are not intolerant to Tylenol, acetaminophen, ibuprofen, Motrin, Advil, Aleve, or similar medications, I would recommend transitioning to these qzty-ldb-dezibjv medicines as soon as possible instead of continued use of narcotic pain medication. Follow up ??? You should call [facility] soon after surgery, at [phone] option 2 to make a follow up appointment for 7 days after your surgery. Discharge Orders/Prescriptions Prescriptions: New acetaminophen 500 mg Tablet 1,000 mg PO Q8 Qty: 0 0RF levofloxacin 750 mg Tablet 750 mg PO DAILY 6 Days Qty: 6 0RF Continued thyroid (pork) [[place] Thyroid] 60 mg tablet 60 mg PO DAILY levothyroxine 25 mcg tablet 25 mcg PO SUTUWETHSA Patient Comments: [NO ORIGINAL SIG] metformin 500 mg tablet 500 mg PO DAILY Patient Comments: PT STATES SHE DOES NOT TAKE THIS EVERY DAY cholecalciferol (vitamin D3) 1 tab PO DAILY Patient Comments: PT NOT SURE OF STRENGTH magnesium citrate 125 mg capsule 250 mg PO QHS Referrals / Follow Up: Deacon Burgos MD [Med Staff - Active Staff] - Milton Cody MD [Primary Care Provider] - Disposition Disposition (needs filled in before D/C Order can be placed): Home, Self Care 09/02/24 1106 Spencer La DO CC: Dr. Spencer aL DO; Dr. Jontahan Plata MD; Dr. Deacon Burgos MD; Dr. Milton Cody MD Signed Normal [facility] Discharge Instruction [facility] Medical Records Department [address] [place] [address] Instructions for Home/Discharge Instructions 09/02/24 1015 MR#: [id number] Acct: [id number] Name: GALILEA Glass Rep #: [id number] : 1975 48 From: Melani MAGDALENO PAMalinaC PCP: Dr. Milton Cody MD Status:ADM IN Discharge Instructions Diet Discharge Diet: Low fat / Low cholesterol DC O2, CPAP, BIPAP needs Home O2 Discharge instructions: No Dressing / Incision Discharge Activity: May Not Drive (3-5 days or while taking narcotic pain medication), May Shower and - (No tub bathing for 2 weeks) Lifting Restrictions: 15 pounds for 2 weeks Dressing / Incision Call your doctor if your incision/area has: Continuous Slow Oozing, Sudden Increased Bleeding, Increased Pain/ Swelling, Increased Redness, Foul Smelling Discharge and Swelling at the incision site Call your doctor if you observe: Fever of 101 or Higher Suture Line Care: Avoid Pulling/Pushing and Avoid Pinching/Bending Change Dressing in: 1 day Cleanse incision/area with: Soap Water Additional Dressing/Incision Instructions:: You may use a sandwich ziploc bag, cut one side, open the bag and secure it over the drain site before showering. Keep a record of output from HERBERT drain and record it on a sheet daily. Write the amount of drainage, date, time and color of the drainage emptied from the drain. Bring record sheet with you to your appointment. Follow Up Care Please Follow Up With: Deacon Burgos MD When: Please contact our office to schedule a 1 week follow-up with Dr. Burgos at [phone], option #2 Test Results: Test results from this visit will be discussed in further detail at your follow-up appointment, if applicable. Discharge Plan Admission Admit Date/Time: 08/29/24 18:22 Primary Reason for Your Visit: Choledocholithiasis Attending Provider: Spencer La Primary Care Provider: Milton Cody Consulting Providers: Deacon Burgos; Spencer La; Jonathan Plata Instructions Additional Instructions / Restrictions: Cholecystectomy Diet ??? Start light with soups, soft bland foods, and low fat foods. You may advance diet as tolerated. Activity ??? You may drive in 3-5 days but not while taking narcotic pain medication. ??? I encourage walking. You may go up steps, one at a time. ??? Do not swim or use hot tubs for 2 weeks. ??? For comfort, you may use warm compresses or ice as needed for 15-20 minutes at a time. Lifting ??? You may lift up to 15 pounds for 2 weeks. Dressings/Incision ??? You may shower OVER your plastic dressings ??? Do NOT tub bathe ??? Leave plastic dressings on for 1 day. ??? When plastic dressings are removed, you will find steri strips. It is okay to continue showering with them in place, pat them dry. ??? You may remove steri-strips after 1 week. We recommend getting them soaking wet for easier removal. - You may use a sandwich ziploc bag, cut one side, open the bag and secure it over the drain site before showering. - Keep a record of output from HERBERT drain and record it on a sheet daily. Write the amount of drainage, date, time and color of the drainage emptied from the drain. - Bring record sheet with you to your appointment. Medications ??? Anesthesia used during surgery and pain medications may cause constipation. I recommend initiating on the day of surgery a fiber supplement like, Metamucil, Citrucel, FiberCon, Benefiber, or a generic form of these medications. 1 heaping tablespoon in water daily. You may continue to utilize any bowel regimen or oral laxatives that you routinely take. ??? As long as you are not intolerant to Tylenol, acetaminophen, ibuprofen, Motrin, Advil, Aleve, or similar medications, I would recommend transitioning to these ujas-cas-lkemwhh medicines as soon as possible instead of continued use of narcotic pain medication. Follow up ??? You should call [facility] soon after surgery, at [phone] option 2 to make a follow up appointment for 7 days after your surgery. Discharge Orders/Prescriptions Prescriptions: New acetaminophen 500 mg Tablet 1,000 mg PO Q8 Qty: 0 0RF levofloxacin 750 mg Tablet 750 mg PO DAILY 6 Days Qty: 6 0RF No Action thyroid (pork) [[place] Thyroid] 60 mg tablet 60 mg PO DAILY levothyroxine 25 mcg tablet 25 mcg PO SUTUWETHSA Patient Comments: [NO ORIGINAL SIG] metformin 500 mg tablet 500 mg PO DAILY Patient Comments: PT STATES SHE DOES NOT TAKE THIS EVERY DAY cholecalciferol (vitamin D3) 1 tab PO DAILY Patient Comments: PT NOT SURE OF STRENGTH magnesium citrate 125 mg capsule 250 mg PO QHS Referrals / Follow Up: Milton Cody MD [Primary Care Provider] - 09/02/24 1043 Melani MAGDALENO PAUziel CC: Dr. Spencer La DO; Dr. Jonathan Plata MD; (more content not included)... Normal [facility] Eosinophil percentageOrdered By: Jonathan Plata on 09-02-2024 Eosinophils/100 WBC (Bld) 1.9 % 0-5 [facility] Erythrocyte distribution wid th ratioOrdered By: Jonathan Plata on 09-02-2024 Erythrocyte distribution width (RBC) [Ratio] 13.2 % 11.6-14.6 [facility] Erythrocyte distribution wid th standard deviationOrdered By: Jonathan Plata on 09-02-2024 Erythrocyte distribution width (RBC) [Entitic vol] 39.5 fL 35.1-43.9 [facility] Erythrocyte distribution width (RBC) [Ratio] 39.5 fl 35.1-43.9 [facility] Estimation of creatinine [place] aranceOrdered By: Jonathan Plata on 09-02-2024 Estimated Creatinine Clearance Calc 154.71 ml/min 50-250 [facility] GFR/1.73 sq M.predicted yvonne g non-blacks MDRD (S/P/Bld) [Vol rate/Area]Ordered By: Jonathan Plata on 09-02-2024 Estimated GFR (MDRD) Non-Af Amer 117 >60 [facility] Comment on above: mL/min/1.73m2 CKD-EP I Creatinine Equation (2020) Glomerular filtration rate ( GFR) estimation/1.73 sq m using serum, plasma, or whole bOrdered By: Jonathan Plata on 09-02-2024 GFR/1.73 sq M.predicted among non-blacks MDRD (S/P/Bld) [Vol rate/Area] 117 mL/min/{1.73_m2} >60 [facility] Comment on above: mL/min/1.73m2 CKD-EP I Creatinine Equation (2020) Hematocrit Auto (Bld) [Volum e fraction]Ordered By: Jonathan Plata on 09-02-2024 Hematocrit (Bld) [Volume fraction] 32.1 % Low 37-47 [facility] Hemoglobin measurementOrdere d By: Jonathan Plata on 09-02-2024 Hemoglobin (Bld) [Mass/Vol] 10.8 g/dL Low 12.0-15.0 [facility] Immature granulocytes/100 WB C Auto (Bld)Ordered By: Jonathan Plata on 09-02-2024 Immature granulocytes/100 WBC (Bld) 0.700 % 0.0-0.9 [facility] Comment on above: IG% - Immature Granu locytes (promyelocytes, myelocytes and metamyelocytes) > 1% indicates that a LEFT SHIFT is Present. Laboratory - Chemistry and C hemistry - challengeOrdered By: Jonathan Plata on 09-02-2024 AST [Catalytic activity/Vol] 48 U/L High <32 [facility] Liver Profileon 09-02-2024 Albumin [Mass/Vol] 2.9 g/dL Low 3.5-5.0 [facility] Comment on above: Performed By: #### L 500.2500, L100.0100, L500.3400 ####[facility] [address]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 Albumin [Mass/Vol] 3.2 g/dL Low 3.5-5.0 [facility] Comment on above: Performed By: #### L 501.2300, L500.3400, L500.2500, L100.0100, L501.5200 #### [facility] [address] [facility] [address] ALK PHOS 162 U/L High 35-104 [facility] Comment on above: Performed By: #### L 501.2300, L500.3400, L500.2500, L100.0100, L501.5200 #### [facility] [address] [facility] [address] ALT [Catalytic activity/Vol] 268 U/L High <=34 [facility] Comment on above: Performed By: #### L 501.2300, L500.3400, L500.2500, L100.0100, L501.5200 #### [facility] [address] [place], [address] AST [Catalytic activity/Vol] 57 U/L High <=31 [facility] Comment on above: Performed By: #### L 501.2300, L500.3400, L500.2500, L100.0100, L501.5200 #### [facility] [address] [place], [address] Bilirubin [Mass/Vol] 4.38 mg/dL High 0.00-1.30 [facility] Comment on above: Performed By: #### L 501.2300, L500.3400, L500.2500, L100.0100, L501.5200 #### [facility] [address] [place], [address] Bilirubin.direct [Mass/Vol] 3.51 mg/dL High 0.00-0.30 [facility] Comment on above: Performed By: #### L 501.2300, L500.3400, L500.2500, L100.0100, L501.5200 #### [facility] [address] [place], [address] Globulin (S) [Mass/Vol] 2.7 g/dL Normal 2.2-4.2 [facility] Comment on above: Performed By: #### L 501.2300, L500.3400, L500.2500, L100.0100, L501.5200 #### [facility] [address] [place], [address] T PROT 5.9 g/dL Normal 5.9-8.4 [facility] Comment on above: Performed By: #### L 501.2300, L500.3400, L500.2500, L100.0100, L501.5200 #### [facility] [address] [place], [address] MR/POSTOP.ANEon 08-31-2024 MR/POSTOP.ANE [facility] Medical Records Department [address] [place] [address] Anesthesia Postop Eval I 08/31/24 1400 MR#: [id number] Acct: [id number] Name: GALILEA GLASS Rep #: [id number] : 1975 48 From: Ruy Gallagher MD PCP: Dr. Milton Cody MD Status:ADM IN Y Race: C Location: [place] [address] Anesthesia: Postop Eval I Current Vital Signs Temperature: 96.8 F Pulse Rate: 94 Blood Pressure: 116/76 Respiratory Rate: 18 Pulse Ox: 93 Oxygen Delivery Method: Room Air Assessment Airway patent: Yes Spontaneous unlabored respirations: Yes Mental status: Awake nausea: No Vomiting: No Anesthesia Complication: No Fluid Hydration Crystalloid volume administer (ml): 1,800 Total IV fluid infused: 1,800 Progress Note Anesthesia document: Postop Eval 1 completed: Yes 08/31/24 1434 Date Ruy Gallagher MD [facility] Signature: Date CC: Signed Normal [facility] [id number] 08-31-2024 [facility] Medical Records Department [address] [place] [address] Anesthesia Postop Eval II 08/31/24 1434 MR#: [id number] Acct: [id number] Name: GALILEA GLASS Rep #: [id number] : 1975 48 From: Ruy Gallagher MD PCP: Dr. Milton Cody MD Status:ADM IN Y Race: C Location: [place] [address] Anesthesia Postop Eval I Sum Postop Eval Completion status Anesthesia document: Postop Eval 1 completed: Yes Anesthesia Postop Eval I Summary Anesthesia Postop Eval I Summary: Anesthesia Postop Eval I: Assessment Summary Airway patent Yes 08/31/24 14:34 Spontaneous unlabored Yes 08/31/24 14:34 respirations Mental status Awake 08/31/24 14:34 nausea No 08/31/24 14:34 Vomiting No 08/31/24 14:34 Anesthesia Postop Eval I: Fluid Summary Crystalloid volume administer 1,800 08/31/24 14:34 (ml) Colloids volume administered ( ml) Blood Product volume administered (ml) Total IV fluid infused 1,800 08/31/24 14:34 Anesthesia Postop Eval I: Summary Notes Anesthesia Complication No 08/31/24 14:34 Anesthesia Complication Comment: Post-operative progress note Anesthesia: Postop Eval II Evaluation Mental status: Awake Pain Level: 0 nausea: No Vomiting: No 08/31/24 1434 Date Ruy Ramirez Signature: Date CC: Signed Normal [facility] Magnesiumon 08-31-2024 Magnesium [Mass/Vol] 2.0 mg/dL Normal 1.5-2.2 [facility] Comment on above: Performed By: #### L 501.2300, L500.3400, L500.2500, L100.0100, L501.5200 #### [facility] [address] [place], [place] [address]je[place], [address] Magnesium (Unsp spec) [Mass/ Vol]Ordered By: Jonathan Plata on 08-31-2024 Magnesium [Mass/Vol] 2.0 mg/dL 1.5-2.2 [facility] Magnesium measurement (mass/ volume)Ordered By: Jonathan Plata on 08-31-2024 Magnesium (Unsp spec) [Mass/Vol] 2.0 mg/dL 1.5-2.2 [facility] Operative Reporton 5 Operative Report [facility] Medical Records Department [address] [place] [address] Operative Report 08/31/24 1134 MR#: [id number] Acct: [id number] Name: GALILEA Glass Rep #: [id number] : 1975 48 From: Deacon Burgos MD PCP: Dr. Milton Cody MD Status:ADM IN Location: [facility] [id number] Operative Report (Standard) Operative Information Date of Procedure: 08/31/24 Pre-Operative Diagnosis: Choledocholithiasis with cholelithiasis Post-Operative Diagnosis: 1. Severe cholecystitis 2. Choledocholithiasis s/p ERCP with stone extraction and CBD stenting 3. Segment 4 liver lesion Surgery/Procedure Performed: 1. Laparoscopic subtotal cholecystectomy with cholangiography 2. Liver biopsy of segment 4 branch rental manager: Yes Building Manager: Juan Carlos Stiles Tasks completed by journeyman operator assistant: Opening closing and Other (Laparoscopic camera operation) Type of Anesthesia: General/Supplemental RN Documented Start/Stop Times: Operation Date: 08/31/24 08:20 Case Time Anesthesia Start 08/31/24 08:09 Into Room 08/31/24 08:09 Procedure Start 08/31/24 08:36 Procedure End 08/31/24 11:46 Anesthesia End 08/31/24 11:53 Out of Room 08/31/24 11:53 Into Recovery 08/31/24 11:55 Out of Recovery 08/31/24 12:43 Procedure Start Time: 08:36 Procedure Stop Time: 11:46 Select all DRAINS/GRAFTS/IMPLANTS that apply: Drains Drain details: 15 Marshallese round Brandon drain Estimated Blood Loss: 75 Specimen collected: Yes Description of specimen(s) removed: 1. Gallbladder with stone contents 2. Liver biopsy (segment 4) Description of surgery: After proper identification in the preoperative holding area the patient was brought to the operating room where she was positioned supine on the operating room table. Preoperatively DVT prophylaxis had been administered with Lovenox and SCDs were connected. Antibiotic prophylaxis with 900 mg clindamycin was administered given patient's allergy. General anesthesia was then induced. Patient's abdomen was prepped and draped in usual sterile fashion. A formal timeout was conducted to confirm both patient and the procedure. Procedure was begun with a supraumbilical incision which was extended deeply down to the level of the fascia. The fascia was elevated and incised, as well as the peritoneum. A finger sweep was performed to ensure there were no underlying adhesions and a 12 mm balloon trocar was inserted. Pneumoperitoneum was established at 15 mmHg. Three additional trocars (all 5 mm) were placed in the epigastrium and in the right upper quadrant. Later in the procedure patient's epigastric port site was upsized to a 12 mm port under laparoscopic visualization. Inspection of the peritoneum revealed no inadvertent injury to the viscera below. The gallbladder was visualized with evidence of chronic inflammation. The gallbladder fundus was was not easily grasped given the firmness of the gallbladder wall (it was later became apparent as a very large gallstone within the lumen) but it was grasped and elevated cephalad. Observing this firmness as well as a whitish lesion cephalad to the gallbladder fossa that measured approximately 1 cm in diameter I became somewhat suspicious for possible underlying gallbladder carcinoma. Using careful dissection the peritoneum was opened and the structures of the hepatocystic triangle were delineated. I traced the gallbladder neck to a dilated cystic duct and identified a obliquely coursing artery that gave rise to a cystic artery crossing the cystic duct. With every attempt to medially dissect the cystic duct this vessel bled. At one point I placed a tangential clip across a branching vessel towards the gallbladder that had been lacerated inadvertently during dissection of the triangle of Calot and was able to obtain temporary control. On subsequent bleeding I simply applied back pressure and the bleeding would stop. Laterally I identified Rouviere's sulcus and I was concerned that we were dealing with a foreshortened cystic duct situation and were thus in close proximity to the common bile duct. Upon reaching this observation I made a phone call to my partner to discuss the situation and discussed continuing for complete cholecystectomy versus subtotal cholecystectomy versus aborting the procedure. I felt like I could proceed safely with a subtotal approach and we jointly agreed that tissue would be beneficial for pathology to answer the question as to whether or not patient did have a carcinoma. I thus proceeded for a laparoscopic subtotal cholecystectomy but took great care to avoid spread of tissue from the immediate vicinity of the operative field. The anterior wall of the gallbladder was incised and a laparoscopic LigaSure device was used to begin excision of the anterior wall in a cephalad direction. Immediately I encountered a very large gallstone and had to extend my (more content not included)... Normal [facility] Phosphoruson 08-31-2024 Phosphate [Mass/Vol] 2.0 mg/dL Low 2.7-4.5 [facility] Comment on above: Performed By: #### L 501.2300, L500.3400, L500.2500, L100.0100, L501.5200 #### [facility] [place], [address] Serum phosphorus measurement Ordered By: Jonathan Plata on 08-31-2024 Phosphorus Level 2.0 mg/dL Low 2.7-4.5 [facility] Surgery Specimen Level IIIon 08-31-2024 Surgery Specimen Level III ---- Patient Age/Sex Location Account Attending Physician ---- GALILEA Glass 48/ [facility] [id number] Dr. Spencer La, DO ---- Specimen: [id number] Received: 09/01/24 Status: DANY Moura Num: [id number] Spec Type: RORO Singh Dr: Dr. Deacon Burgos MD HEADER OPERATION: Laparoscopic subtotal cholecystectomy with IOC, liver lesion PRE-OP DIAGNOSIS: Obstructive jaundice, severe cholecystitis and cholelithiasis, liver lesion TISSUE SUBMITTED: A- Gallbladder, B- Liver lesion biopsy ---- MICROSCOPIC DIAGNOSIS A: GALLBLADDER, CHOLECYSTECTOMY: * Acute gangrenous cholecystitis with cholelithiasis. B: LIVER LESION, WEDGE BIOPSY: * Bile duct adenoma - see note. * Note: Cautery artifact distorts the tissue. MICROSCOPIC DESCRIPTION Slides are reviewed. GROSS DESCRIPTION A. Received is one container labeled with the patient's name and designated gallbladder. The specimen consists of two fragments of rubbery brown-trivedi soft tissue which measure 4 x 3 x 1cm in aggregate. Multiple brown-yellow stones, the largest of which measures 2.6cm in greatest dimension, are also present. The rubbery fragments have ragged edges with one focal shiny surface resembling serosa. No definite mucosa is identified. Sectioning reveals firm glistening trivedi-red cut surfaces. TS 4. Cassette summary: A1- A4 : Ragged fragments, totally submitted. B. Received in fixative is one container labeled with the patient's name and designated Liver lesion biopsy. The specimen consists of one fragment of ragged firm brown-middleton soft tissue measuring 8 x 5 x 3mm. TE1 mr 09/01/2024 CPT:39695,19340 ---- Patient Age/Sex Location Account Attending Physician ---- GALILEA Glass 48/F [facility] [id number] Dr. Spencer La, DO ---- Signed (signature on file) Dr. Seema Dickerson MD 09/03/24 1659 ---- Normal [facility] Comment on above: Performed By: #### P SUIII ####[facility] [address] [place], [address] Bedside Glucoseon 08-30-2024 FINGERSTICK GLU 108 mg/dL High 74-106 [facility] Comment on above: Result Comment: ROBER SCOTT OF PATIENT CARE PER NURSING PROTOCOL Performed By: #### L 501.080 ####[facility] [address] [place], [address] FINGERSTICK GLU 115 mg/dL High 74-106 [facility] Comment on above: Result Comment: ROBER SCOTT OF PATIENT CARE PER NURSING PROTOCOL Performed By: #### L 501.080 #### [facility] [address] [place], [address] CBC-Complete Blood Cnt No Di ffon 08-30-2024 Erythrocyte distribution width (RBC) [Ratio] 13.0 % Normal 11.6-14.6 [facility] Comment on above: Performed By: #### L 100.0500, L500.4050 ####[facility] [address] [place], [address] Hematocrit (Bld) [Volume fraction] 35.6 % Low 37-47 [facility] Comment on above: Performed By: #### L 100.0500, L500.4050 ####[facility] [address] [place], [address] Hemoglobin (Bld) [Mass/Vol] 12.0 g/dL Normal 12.0-15.0 [facility] Comment on above: Performed By: #### L 100.0500, L500.4050 ####[facility] [address] [place], [address] MCH (RBC) [Entitic mass] 27.5 pg Normal 27.0-32.0 [facility] Comment on above: Performed By: #### L 100.0500, L500.4050 ####[facility] [address] [place], [address] MCHC (RBC) [Mass/Vol] 33.7 g/dL Normal 32-36 [facility] Comment on above: Performed By: #### L 100.0500, L500.4050 ####[facility] [address] [place], [address] MCV (RBC) [Entitic vol] 81.5 fL Normal 81-99 [facility] Comment on above: Performed By: #### L 100.0500, L500.4050 ####[facility] [address] [place], [address] Platelet mean volume (Bld) [Entitic vol] 10.5 fL Normal 6.2-12.0 [facility] Comment on above: Performed By: #### L 100.0500, L500.4050 ####[facility] [address] [place], [address] Platelets (Bld) [#/Vol] 157 10*3/uL Normal 150-450 [facility] Comment on above: Performed By: #### L 100.0500, L500.4050 ####[facility] [address] [place], [address] RBC (Bld) [#/Vol] 4.37 10*6/uL Normal 4.2-5.4 [facility] Comment on above: Performed By: #### L 100.0500, L500.4050 ####[facility] [address] [place], [address] RDW SD 38.7 fl Normal 35.1-43.9 [facility] Comment on above: Performed By: #### L 100.0500, L500.4050 ####[facility] [address] [place], [address] WBC (Bld) [#/Vol] 8.4 10*3/uL Normal 4.4-11.0 [facility] Comment on above: Performed By: #### L 100.0500, L500.4050 ####[facility] [address] [place], [address] Comprehensive Metabolic Prof ilon 08-30-2024 Albumin [Mass/Vol] 3.3 g/dL Low 3.5-5.0 [facility] Comment on above: Performed By: #### L 100.0500, L500.4050 ####[facility] [address] [place], [address] Albumin/Globulin [Mass ratio] 1.3 {ratio} Normal 0.9-2.4 [facility] Comment on above: Performed By: #### L 100.0500, L500.4050 ####[facility] [address] [place], [address] ALK PHOS 177 U/L High 35-104 [facility] Comment on above: Performed By: #### L 100.0500, L500.4050 ####[facility] [address] [place], [address] ALT [Catalytic activity/Vol] 368 U/L High <=34 [facility] Comment on above: Performed By: #### L 100.0500, L500.4050 ####[facility] [address] [place], [address] AST [Catalytic activity/Vol] 96 U/L High <=31 [facility] Comment on above: Performed By: #### L 100.0500, L500.4050 ####[facility] [address] [place], [address] Bilirubin [Mass/Vol] 5.10 mg/dL High 0.00-1.30 [facility] Comment on above: Performed By: #### L 100.0500, L500.4050 ####[facility] [address] [place], [address] BUN/CRE 10.3 RATIO Normal 10-20 [facility] Comment on above: Performed By: #### L 100.0500, L500.4050 ####[facility] [address] [place], [address] Calcium [Mass/Vol] 8.1 mg/dL Normal 7.6-11.0 [facility] Comment on above: Performed By: #### L 100.0500, L500.4050 ####[facility] [address] [place], [address] Chloride [Moles/Vol] 106 mmol/L Normal 98-108 [facility] Comment on above: Performed By: #### L 100.0500, L500.4050 ####[facility] [address] [place], [address] CO2 [Moles/Vol] 19.8 mmol/L Low 21.0-32.0 [facility] Comment on above: Performed By: #### L 100.0500, L500.4050 ####[facility] [address] [place], [address] Creatinine [Mass/Vol] 0.62 mg/dL Low 0.70-1.20 [facility] Comment on above: Result Comment: Icte miguel present, Results may be affected. Performed By: #### L 100.0500, L500.4050 ####[facility] [address] [place], [address] ECRCL 116.36 ml/min Normal 50-250 [facility] Comment on above: Performed By: #### L 100.0500, L500.4050 ####[facility] [address] [place], [address] GAP 13 Normal 5-15 [facility] Comment on above: Performed By: #### L 100.0500, L500.4050 ####[facility] [address] [place], [address] GFR/1.73 sq M.predicted among non-blacks MDRD (S/P/Bld) [Vol rate/Area] 108 mL/min/{1.73_m2} Normal >60 [facility] Comment on above: Result Comment: mL/m in/1.73m2 CKD-EPI Creatinine Equation (2020) Performed By: #### L 100.0500, L500.4050 ####[facility] [address] [place], [address] Globulin (S) [Mass/Vol] 2.5 g/dL Normal 2.2-4.2 [facility] Comment on above: Performed By: #### L 100.0500, L500.4050 ####[facility] [address] [place], [address] Glucose [Mass/Vol] 103 mg/dL High 70-99 [facility] Comment on above: Performed By: #### L 100.0500, L500.4050 ####[facility] [address] [place], [address] Potassium [Moles/Vol] 3.6 mmol/L Normal 3.3-5.1 [facility] Comment on above: Performed By: #### L 100.0500, L500.4050 ####[facility] [address] [place], [address] Sodium [Moles/Vol] 139 mmol/L Normal 133-145 [facility] Comment on above: Performed By: #### L 100.0500, L500.4050 ####[facility] [address] [place], [address] T PROT 5.8 g/dL Low 5.9-8.4 [facility] Comment on above: Performed By: #### L 100.0500, L500.4050 ####[facility] [address] [place], [address] Urea nitrogen [Mass/Vol] 6 mg/dL Normal 4-19 [facility] Comment on above: Performed By: #### L 100.0500, L500.4050 ####[facility] [address] [place], [address] Glucose measurement at [facility] deOrdered By: Spencer La on 08-30-2024 Bedside Glucose (Misc Panel) 108 mg/dL High 74-106 [facility] Comment on above: MANAGEMENT OF PATIEN T CARE PER NURSING PROTOCOL Glucose [Mass/Vol] 108 mg/dL High 74-106 [facility] Comment on above: MANAGEMENT OF PATIEN T CARE PER NURSING PROTOCOL Serum or plasma albumin/glob ulin mass ratioOrdered By: Spencer La on 08-30-2024 Albumin/Globulin [Mass ratio] 1.3 {ratio} 0.9-2.4 [facility] Urine Cultureon 08-30-2024 URC Below infection leve l. Mixed Gram Pos Gram Neg Org Ingalls Count 1000-10,000 MIXC Mixed contaminants. Submit a new specimen if indicated. Normal [facility] Comment on above: Performed By: #### L 501.2300, L500.3400, L500.2500, L100.0100, L501.5200 #### [facility] [address] [facility] [place], [place], [address] Abdomen/Pelvis W IV Cont ONL Yon 08-29-2024 Abdomen/Pelvis W IV Cont ONLY [facility] Imaging Services [address] [place], [place] [address] Abdomen/Pelvis W IV Cont ONLY MR#: [id number] Acct: [id number] Name: GALILEA GLASS Rep #: [id number] : 1975 F 48 From: Steve posada MD PCP: Dr. Milton Cody MD Status: REG ER Study: Abdomen/Pelvis W IV Cont ONLY Date of Exam: Exam# [id number] Ordering Dr: Scot Gonzalez DO PROCEDURE: ABDOMEN/PELVIS W IV CONT ONLY REASON FOR EXAM: Fever. Generalized body aches. Patient is not feeling. TECHNIQUE: Abdomen and pelvis CT with intravenous contrast. IV CONTRAST: COMPARISON: None. FINDINGS: Lung bases: Clear Liver: Diffuse fatty infiltration. Gallbladder: Gallstones. Mildly dilated central intrahepatic biliary ducts. Question gallstone in the neck of the gallbladder. Correlation with the ultrasound of the gallbladder recommended. Spleen: Unremarkable. Pancreas: Unremarkable. Adrenals: Unremarkable. Kidneys: Unremarkable. Bladder: Unremarkable. Reproductive Organs: Small follicles are seen in both ovaries. A nabothian cyst is seen in the uterine cervix. Bowel: Unremarkable. Appendix: Normal. Lymph nodes: No suspicious lymph node enlargement. Vasculature: Major vascular structures are unremarkable. Peritoneum / Retroperitoneum: No ascites. No free air. Bones: Unremarkable. CT/Abdomen/Pelvis W IV Cont ONLY IMPRESSION: Gallstones. Possible gallstone in the neck of the gallbladder. Mild degree of central intrahepatic biliary ductal dilatation. Correlation with ultrasound recommended for further evaluation. Fatty infiltration of the liver. One or more dose reduction techniques were used (e.g., Automated exposure control, adjustment of the mA and/or kV according to patient size, use of iterative reconstruction technique). Reading Location: [facility] CC: Dr. Scot Gonzalez DO; Dr. Milton Cody MD Lunchroom Mother: Signed Normal [facility] Absolute neutrophil countOrd ered By: Scot Gonzalez on 08-29-2024 Neutrophils (Bld) [#/Vol] 12.6 10*3/uL High 2.0-7.7 [facility] Activated partial thrombopla stin time (aPTT) in platelet poor plasma by coagulation aOrdered By: Scot Gonzalez on 08-29-2024 aPTT Coag (PPP) [Time] 27.9 s 24.1-36.2 [facility] Anion gap in Serum or Plasma Ordered By: Scot Gonzalez on 08-29-2024 Anion gap [Moles/Vol] 14 mmol/L 11-06 [facility] BUN/creatinine ratioOrdered By: Scot Gonzalez on 08-29-2024 Urea nitrogen/Creatinine [Mass ratio] 10.3 mg/mg - [facility] Basic Metabolic Profile (BMP )on 08-29-2024 BUN/CRE 10.3 RATIO Normal 04-13 [facility] Comment on above: Performed By: #### L 501.2300, L500.3400, L500.2500, L100.0100, L501.5200 #### [facility] [address] [place], [address] Calcium [Mass/Vol] 9.0 mg/dL Normal 7.6-11.0 [facility] Comment on above: Performed By: #### L 501.2300, L500.3400, L500.2500, L100.0100, L501.5200 #### [facility] [address] [place], [address] Chloride [Moles/Vol] 99 mmol/L Normal 98-108 [facility] Comment on above: Performed By: #### L 501.2300, L500.3400, L500.2500, L100.0100, L501.5200 #### [facility] [address] [place], [address] CO2 [Moles/Vol] 20.2 mmol/L Low 21.0-32.0 [facility] Comment on above: Performed By: #### L 501.2300, L500.3400, L500.2500, L100.0100, L501.5200 #### [facility] [address] [place], [address] Creatinine [Mass/Vol] 0.74 mg/dL Normal 0.70-1.20 [facility] Comment on above: Performed By: #### L 501.2300, L500.3400, L500.2500, L100.0100, L501.5200 #### [facility] [address] [place], [address] ECRCL 95.78 ml/min Normal 50-250 [facility] Comment on above: Performed By: #### L 501.2300, L500.3400, L500.2500, L100.0100, L501.5200 #### [facility] [address] [place], [address] GAP 14 Normal 5-15 [facility] Comment on above: Performed By: #### L 501.2300, L500.3400, L500.2500, L100.0100, L501.5200 #### [facility] [address] [place], [address] GFR/1.73 sq M.predicted among non-blacks MDRD (S/P/Bld) [Vol rate/Area] 99 mL/min/{1.73_m2} Normal >60 [facility] Comment on above: Result Comment: mL/m in/1.73m2 CKD-EPI Creatinine Equation (2020) Performed By: #### L 501.2300, L500.3400, L500.2500, L100.0100, L501.5200 #### [facility] [address] [place], [address] Glucose [Mass/Vol] 175 mg/dL High 70-99 [facility] Comment on above: Performed By: #### L 501.2300, L500.3400, L500.2500, L100.0100, L501.5200 #### [facility] [address] [place], [address] Potassium [Moles/Vol] 3.9 mmol/L Normal 3.3-5.1 [facility] Comment on above: Performed By: #### L 501.2300, L500.3400, L500.2500, L100.0100, L501.5200 #### [facility] [address] [place], [address] Sodium [Moles/Vol] 134 mmol/L Normal 133-145 [facility] Comment on above: Performed By: #### L 501.2300, L500.3400, L500.2500, L100.0100, L501.5200 #### [facility] [address] [place], [address] Urea nitrogen [Mass/Vol] 8 mg/dL Normal 4-19 [facility] Comment on above: Performed By: #### L 501.2300, L500.3400, L500.2500, L100.0100, L501.5200 #### [facility] [address] [place], [address] Basophil percentageOrdered B y: Scot Gonzalez on 08-29-2024 Basophils/100 WBC (Bld) 0.2 % 0-1 [facility] Bilirubin Test strip Ql (U)O rdered By: Scot Gonzalez on 08-29-2024 Bilirubin Ql (U) 6 mg/dL High Negative [facility] Comment on above: COLOR OF URINE MAY A FFECT DIPSTICK RESULTS. Bilirubin directOrdered By: Scot Gonzalez on 08-29-2024 Bilirubin.direct [Mass/Vol] 2.99 mg/dL High 0.00-0.30 [facility] Bilirubin, totalOrdered By: Scot Gonzalez on 08-29-2024 Bilirubin [Mass/Vol] 4.42 mg/dL High 0.00-1.30 [facility] Blood cultureOrdered By: Torey Gonzalez on 08-29-2024 Bacteria identified Cx Nom (Bld) GNR lactose sanforizer Abnormal [facility] Bacteria identified Cx Nom (Bld) Klebsiella pneumoniae sp pneum Abnormal [facility] CBC W/Diff, Automatedon Absolute Lymph 0.27 X10 3/uL Low 0.83-4.51 [facility] Comment on above: Performed By: #### L 501.2300, L500.3400, L500.2500, L100.0100, L501.5200 #### [facility] [address] [place], [address] Absolute Neut 12.6 X10 3/uL High 2.0-7.7 [facility] Comment on above: Performed By: #### L 501.2300, L500.3400, L500.2500, L100.0100, L501.5200 #### [facility] [address] [place], [address] Basophils/100 WBC (Bld) 0.2 % Normal 0-1 [facility] Comment on above: Performed By: #### L 501.2300, L500.3400, L500.2500, L100.0100, L501.5200 #### [facility] [address] [place], [address] Eosinophils/100 WBC (Bld) 0.0 % Normal 0-5 [facility] Comment on above: Performed By: #### L 501.2300, L500.3400, L500.2500, L100.0100, L501.5200 #### [facility] [address] [place], [address] Erythrocyte distribution width (RBC) [Ratio] 12.8 % Normal 11.6-14.6 [facility] Comment on above: Performed By: #### L 501.2300, L500.3400, L500.2500, L100.0100, L501.5200 #### [facility] [address] [place], [address] Hematocrit (Bld) [Volume fraction] 44.1 % Normal 37-47 [facility] Comment on above: Performed By: #### L 501.2300, L500.3400, L500.2500, L100.0100, L501.5200 #### [facility] [address] [place], [address] Hemoglobin (Bld) [Mass/Vol] 14.6 g/dL Normal 12.0-15.0 [facility] Comment on above: Performed By: #### L 501.2300, L500.3400, L500.2500, L100.0100, L501.5200 #### [facility] [address] [place], [address] IG% 0.600 Normal 0.0-0.9 [facility] Comment on above: Result Comment: IG% - Immature Granulocytes (promyelocytes, myelocytes and metamyelocytes) > 1% indicates that a LEFT SHIFT is Present. Performed By: #### L 501.2300, L500.3400, L500.2500, L100.0100, L501.5200 #### [facility] [address] [place], [address] Lymphocytes/100 WBC (Bld) 2.0 % Low 19-41 [facility] Comment on above: Performed By: #### L 501.2300, L500.3400, L500.2500, L100.0100, L501.5200 #### [facility] [address] [place], [address] MCH (RBC) [Entitic mass] 27.4 pg Normal 27.0-32.0 [facility] Comment on above: Performed By: #### L 501.2300, L500.3400, L500.2500, L100.0100, L501.5200 #### [facility] [address] [place], [address] MCHC (RBC) [Mass/Vol] 33.1 g/dL Normal 32-36 [facility] Comment on above: Performed By: #### L 501.2300, L500.3400, L500.2500, L100.0100, L501.5200 #### [facility] [address] [place], [address] MCV (RBC) [Entitic vol] 82.7 fL Normal 81-99 [facility] Comment on above: Performed By: #### L 501.2300, L500.3400, L500.2500, L100.0100, L501.5200 #### [facility] [address] [place], [address] Monocytes/100 WBC (Bld) 3.3 % Normal 0-10 [facility] Comment on above: Performed By: #### L 501.2300, L500.3400, L500.2500, L100.0100, L501.5200 #### [facility] [address] [place], [address] Neutrophils/100 WBC (Bld) 93.9 % High 47-70 [facility] Comment on above: Performed By: #### L 501.2300, L500.3400, L500.2500, L100.0100, L501.5200 #### [facility] [address] [place], [address] Nucleated RBC (Bld) [#/Vol] 0 10*3/uL Normal 0-5 [facility] Comment on above: Performed By: #### L 501.2300, L500.3400, L500.2500, L100.0100, L501.5200 #### [facility] [address] [place], [address] Platelet mean volume (Bld) [Entitic vol] 10.7 fL Normal 6.2-12.0 [facility] Comment on above: Performed By: #### L 501.2300, L500.3400, L500.2500, L100.0100, L501.5200 #### [facility] [address] [place], [address] Platelets (Bld) [#/Vol] 202 10*3/uL Normal 150-450 [facility] Comment on above: Performed By: #### L 501.2300, L500.3400, L500.2500, L100.0100, L501.5200 #### [facility] [address] [place], [address] RBC (Bld) [#/Vol] 5.33 10*6/uL Normal 4.2-5.4 [facility] Comment on above: Performed By: #### L 501.2300, L500.3400, L500.2500, L100.0100, L501.5200 #### [facility] [address] [place], [address] RDW SD 38.4 fl Normal 35.1-43.9 [facility] Comment on above: Performed By: #### L 501.2300, L500.3400, L500.2500, L100.0100, L501.5200 #### [facility] [address] [place], [place], [address] WBC (Bld) [#/Vol] 13.5 10*3/uL High 4.4-11.0 [facility] Comment on above: Performed By: #### L 501.2300, L500.3400, L500.2500, L100.0100, L501.5200 #### [facility] [address] [place], [place], [address] CNOVon 08-29-2024 CNOV Office Visit (FAMPWS ) QUANSeptember ([id number]) 1975 F Date Time Provider Department 08/29/24 12:40 PM [facility] During your visit today, we recorded the following information about you: Temperature Pulse Blood pressure Weight 103.4 degrees 145/minute 112/72 91.6 kg Kaylan Rodriguez APRN.CORPORATE REPRESENTATIVE 08/29/2024 1:20 PM Signed This is a 48 year old female who presents today with: Patient presents with: Acute Visit: Nasal congestion, right eye discharge, fatigue, cough, nausea, chills. Exposed to RSV Pain: Pain in back, had sharp pain in mid abdomen 3 days ago HISTORY OF PRESENT ILLNESS: September Quan is a 48 year old female. Patient presents with: Acute Visit: Nasal congestion, right eye discharge, fatigue, cough, nausea, chills. Exposed to RSV Pain: Pain in back, had sharp pain in mid abdomen 3 days ago 13 days ago, grandson Dx with RSV. He was [facility] Everyone at home sick Head and chest congestion sick from work Fever Eye swollen- right eye red Sunday- epigastric discomfort across upper chest, sweating, on Sunday- slip tender Craving salt Some nausea- at low carb toast Urine cloudy Today back pain No headache Dry cough Right eye red Some nausea, no vomiting Chills Nasal purulent matter Urine dark Sharp pain across juliana. flank PAST MEDICAL HISTORY: PAST MEDICAL HISTORY Diagnosis Date Heel spur left foot menorrhagia PCOS (polycystic ovarian syndrome) Plantar fasciitis of left foot Thyroid nodule Tinea of nail 03/28/2018 03/28/18: [email or web address] PAST SURGICAL HISTORY Procedure Laterality Date DELIVERY ONLY , low cervical DELIVERY ONLY , low cervical DELIVERY ONLY , low transverse PAST SURGICAL HISTORY OF 2012 partial thyroidectomy TX MISSED FIRST TRIMESTER SURGICAL 01/12/06 missed US GUIDED THYROID BIOPSY 06/2012 ALLERGIES Amoxicillin, Chlorhexidine, and Penicillins MEDICATIONS Current Outpatient Medications Medication Sig B cmplx 4/vit D3/C/folic/zinc (VITAL-D RX ORAL) Take by mouth. ARMOUR THYROID 60 mg Take 60 mg by mouth once daily. levothyroxine (SYNTHROID) 25 mcg tablet Take 25 mcg by mouth every other day. No current facility-administered medications for this visit. FAMILY HISTORY Problem Relation Age of Onset Diabetes Father Heart Father TRIPLE BYPASS Cancer Father PANCREATIC Breast Cancer Maternal Grandmother Diabetes Maternal Grandmother Cancer Maternal Grandfather STOMACH CANCER Cancer Paternal Grandmother OVARIAN/UTERINE Heart Paternal Grandfather other (LUPUS) Maternal Aunt Cancer Other cousin (fa's side) melanoma dx 2006 Cancer Other GAUNT WITH BLADDER CANCCER other (Sjogren's Disease) Other Maternal cousin other (Brain Cancer) Other other (PCOS) Daughter other (PCOS) Other Paternal Cousin Social History Tobacco Use Smoking status: Never Smokeless tobacco: Never Vaping Use Vaping status: Never Used Substance Use Topics Alcohol use: No Drug use: No EXAM: BP 112/72 Pulse (!) 145 Temp (!) 39.7 ?C (103.4 ?F) (Temporal) Wt 91.6 kg (202 lb) LMP 09/20/2022 (Exact Date) SpO2 99% BMI 36.95 kg/m? PHYSICAL EXAM: Physical Exam Vitals reviewed. Constitutional: Appearance: Normal appearance. HENT: Head: Normocephalic. Right Ear: There is no impacted cerumen. Left Ear: There is no impacted cerumen. Ears: Comments: TM bulging but no purulent matter Nose: Congestion and rhinorrhea present. Mouth/Throat: Mouth: Mucous membranes are dry. Pharynx: Posterior oropharyngeal erythema present. No oropharyngeal exudate. Cardiovascular: Rate and Rhythm: Tachycardia present. Pulses: Normal pulses. Heart sounds: Normal heart sounds. Pulmonary: Effort: Pulmonary effort is normal. Breath sounds: Normal breath sounds. Abdominal: General: Bowel sounds are normal. Tenderness: There is no abdominal tenderness. There is no guarding. Comments: Epigastric pain- tender to palpate, + VIKAS Musculoskeletal: Comments: Generalized weakness, body aches- walks w/o assistive device Negative CVA tenderness Skin: General: Skin is warm and dry. Neurological: Mental Status: She is alert and oriented to person, place, and time. LABS: ASSESSMENT/PLAN: 1. Acute viral syndrome - ICD9: 079.99, ICD10: B34.9 - Discussed viral etiology and rationale for treatment. - Symptomatic treatment with prn analgesia - Supportive care with fluids and rest - Discussed ER for dehydration, not wanting to go - Will consider going, take 2 oz water daily - if Sx worsen, please go to ER as recommended - Zofran as needed Discussed treatment plan and patient voices understanding. Patient's questions answered appropriately. Medications and potential side (more content not included)... Normal [facility] Carbon dioxide, total [Moles /volume] in Central venous bloodOrdered By: Scot Gonzalez on 08-29-2024 CO2 [Moles/Vol] 20.2 mmol/L Low 21.0-32.0 [facility] Chest PA and Lateralon 08-29 Chest PA and Lateral [facility] [address] [place] [address] Chest PA and Lateral MR#: [id number] Acct: [id number] Name: GALILEA GLASS Rep #: [id number] : 1975 F 48 From: Steve posada MD PCP: Dr. Milton Cody MD Status: REG ER Study: Chest PA and Lateral Date of Exam: 08/29/24 Exam# [id number] Ordering Dr: Scot Gonzalez DO PROCEDURE: CHEST PA AND LATERAL REASON FOR EXAM: Cough. TECHNIQUE: Frontal and lateral views of the chest. COMPARISON: None. FINDINGS: The heart is nonenlarged. The lungs are clear. The bones are unremarkable. RAD/Chest PA and Lateral IMPRESSION: No acute abnormality is seen. Reading Location: [facility] CC: Dr. Scot Gonzalez DO; Dr. Milton Cody MD Lunchroom Mother: Signed Normal [facility] Chloride assayOrdered By: Austen Gonzalez on 08-29-2024 Chloride [Moles/Vol] 99 mmol/L 98-108 [facility] Consultation - Surgicalon Consultation - Surgical [facility] Medical Records Department [address] [place] [address] Consultation - Surgical 08/29/241924 MR#: [id number] Acct: [id number] Name: GALILEA GLASS Rep #: [id number] : 1975 48 From: Deacon Burgos MD PCP: Dr. Milton Cody MD Status:ADM IN Location: [facility] [id number] Assessment Plan Assessment/Plan (1) Obstructive jaundice: PLAN: Patient is 48-year-old female with apparent cholangitis and obstructive jaundice???likely owing to a underlying diagnosis of choledocholithiasis. Patient is pending ERCP with gastroenterology. Will await findings of this study as well as patient's clinical response to this intervention. I did discuss with patient that I would plan for same???admission laparoscopic cholecystectomy with intraoperative cholangiography to mitigate her risk for further issues from gallstones. Procedure was described in detail. I suggested that we follow-up tomorrow and be sure she responds appropriately. In the event that patient is clinically ready for surgery would recommend keeping her n.p.o. past midnight. Deacon Burgos MD General Surgery Endocrine Surgery Pager: [facility] [address] [place] [address], [address] [place] [address] Office: [phone] HPI Consult Data Date of Consult: 08/29/24 HPI Narrative Reason for Consultation: Choledocholithiasis with cholangitis HPI Narrative: GALILEA GLASS, is a 48 F who presents to [facility] emergency department on direction from her PCP office after presenting there for a myriad of symptoms. She notes recently her grandchild was diagnosed with RSV and she suspected that she had fallen ill with this condition but was never formally tested. She then reports on 08/27/2024 she awoken with a sharp pain in her stomach. She states the pain was so intense that had her doubled over and she felt sweaty but when checking her temperature she found she was afebrile. She notes taking some antacids to try to improve the pain but she generally had a poor appetite. She was not seen that day but reports feeling rundown yesterday with somewhat less abdominal pain. She reports she did have some darker colored urine but this was attributed to a relative dehydrated status. She then woke this morning with severe back pain which she attributed to vigorous coughing. With this back pain and some associated chills she sought a sick visit with her PCP where she saw a nurse practitioner who commented they felt that she had some fluid buildup in her ears and recommended overall conservative treatment but expressed concern about her returning home. Patient's evaluation in the ER included biochemical evaluation with laboratories including CMP that showed transaminitis and hyperbilirubinemia with a T. bili of 4.42. CBC demonstrated leukocytosis with left shift. Initially CT imaging of the abdomen pelvis was obtained that showed gallbladder with some gallstones (1 possibly located in the neck) but more prominently there was a dilated common bile duct and some evidence of diffuse fatty liver infiltration. Given patient's laboratories and the finding of a dilated common bile duct ultrasound was performed reflexively. Once again this showed a distended gallbladder with cholelithiasis but, notably, radiology stated there is no evidence of wall thickening or pericholecystic fluid. They did note the patient's common bile duct measured 8 mm in diameter. With these findings surgery is asked to evaluate patient for possible cholecystectomy. Emergency medicine noted that they had previously contacted gastroenterology and ERCP was pending for today. Patient past medical history notable for some hypothyroidism and PCOS. Surgically???speaking patient has a history of thyroid lobectomy and more remotely a history of several sections [facility] Medical History PCOS (polycystic ovarian syndrome) Migraine headache Home Medications ???Medication ???Instructions ???Recorded ???Last Taken ???Type thyroid (pork) 60 mg tablet 60 mg PO DAILY 08/23/20 08/29/24 H istory ([place] Thyroid) cholecalciferol (vitamin D3) 1 tab PO DAILY 08/29/24 Unknown Hi story levothyroxine 25 mcg tablet 25 mcg PO SUTUWETHSA 08/29/2401/16 History magnesium citrate 125 mg capsule 250 mg PO QHS 08/29/24 Unknown His tory metformin 500 mg tablet 500 mg PO DAILY 08/29/24 Unknown H istory Allergy/AdvReac Type Severity Reaction Status Date / Time Penicillins Allergy Intermediate Hives Verified 08/30/20 13:09 chlorhexidine Allergy Mild Rash Verified 08/30/20 13:09 Family History Other Cancer Diabetes Heart disease Hypertension Surgical History (Reviewed 08/29 (more content not included)... Normal [facility] ERCP Biliary/Pancreason ERCP Biliary/Pancreas [facility] Services [address] [place], [place] [address] ERCP Biliary/Pancreas MR#: [id number] Acct: [id number] Name: GALILEA GLASS Rep #: [id number] : 1975 F 48 From: Corbin Diop MD PCP: Dr. Milton Cody MD Status: ADM IN Study: ERCP Biliary/Pancreas Date of Exam: 08/29/24 Exam# [id number] Ordering Dr: Paolo Waller DO PROCEDURE: ERCP BILIARY/PANCREAS REASON FOR EXAM: ERCP TECHNIQUE: Seven intraoperative spot view(s) from ERCP COMPARISON: None. FINDINGS: Total fluoro time 69.7 seconds Cumulative dose 18.62 mGy Images show cannulation of the common bile duct and left hepatic biliary system with instillation of contrast. A couple of filling defects are seen in the area of the upper and mid common bile duct none of which appear persistent over the images. Contrast is seen within mildly prominent intrahepatic biliary ducts. Faint contrast remains in the intra and extrahepatic ducts on the final images. RAD/ERCP Biliary/Pancreas IMPRESSION: Fluoroscopy during ERCP as above. Reading Location: [id number] CC: Dr. Milton Cody MD; Paolo Waller DO Lunchroom Mother: Signed Normal [facility] Emergency Department Summary on 08-29-2024 Emergency Department Summary [facility] Medical Records Department [address] [place] [address] Emergency Department Summary 08/29/24 MR#: [id number] Acct: [id number] Name: GALILEA GLASS Rep #: [id number] : 1975 48 From: Scot Gonzalez PCP: Dr. Milton Cody MD Status:ADM IN Location: [place] [address] HPI History of Present Illness Chief Complaint: General Illness Informant: patient Narrative Narrative: Sent here after seeing PCP office. Patient reports beginning of illness 2 weeks ago grandson diagnosed RSV. She has had sinus congestion. Symptoms of upper respiratory were started to improve. This past Sunday increased severe pain across her upper abdomen. Nausea when she eats. No vomiting no diarrhea no urinary symptoms however states recent urines a lot more dark in color she is taking less p.o. intake. Seeing her doctor today states had a fever tachycardic. Started having a cough. Still has upper abdominal pain that goes to her back. Denies alcohol history. Denies any abdominal surgeries. Father had pancreatic cancer. Allergies to chlorhexidine and penicillin. Prior similar symptoms: No PFSH PFSH Medical History (Updated 08/29/24 @ 23:[address] Scot Gonzalez DO) PCOS (polycystic ovarian syndrome) Migraine headache Home Medications ???Medication ???Instructions ???Recorded ???Last Taken ???Type thyroid (pork) 60 mg tablet 60 mg PO DAILY 08/23/20 08/29/24 H istory ([place] Thyroid) cholecalciferol (vitamin D3) 1 tab PO DAILY 08/29/24 Unknown Hi story levothyroxine 25 mcg tablet 25 mcg PO SUTUWETHSA 08/29/2401/16 History magnesium citrate 125 mg capsule 250 mg PO QHS 08/29/24 Unknown His tory metformin 500 mg tablet 500 mg PO DAILY 08/29/24 Unknown H istory Allergy/AdvReac Type Severity Reaction Status Date / Time Penicillins Allergy Intermediate Hives Verified 08/30/20 13:09 chlorhexidine Allergy Mild Rash Verified 08/30/20 13:09 Family History Other Cancer Diabetes Heart disease Hypertension Surgical History History of lobectomy of thyroid Social History household members: spouse housing: house Smoking Status: Never smoker ROS ROS ED Constitutional Constitutional ED: Reports fever(s); Denies chills or sweats ENT ENT ED: Denies sore throat Cardiovascular Cardiovascular: Denies chest pain, leg edema, palpitations or racing heartbeat Respiratory/Chest Respiratory/Chest: Reports cough; Denies dyspnea or dyspnea on exertion Gastrointestinal Gastrointestinal: Reports abdominal pain and nausea; Denies diarrhea or vomiting Genitourinary Genitourinary ED: Denies dysuria, hematuria or urinary frequency Musculoskeletal Musculoskeletal: Reports back pain; Denies extremity pain or neck pain Integumentary Denies rash or wounds Neurologic Neurologic: Denies headache(s), paresthesias or weakness EXAM Physical Exam Const Vital Signs: 08/29/24 13:45 08/29/24 15:31 08/29/24 17:44 Temperature 102.4 F H Temperature Source Temporal Pulse Rate 138 H 100 Respiratory Rate 17 Respiratory Effort Normal Non-Labored Respiratory Pattern Normal Blood Pressure 160/93 H 118/79 Blood Pressure Mean 115 92 Blood Pressure Source Blood Pressure Position Blood Pressure Location Pulse Ox 100 94 Oxygen Delivery Method Room Air 08/29/24 18:21 Temperature Temperature Source Pulse Rate 106 H Respiratory Rate 16 Respiratory Effort Respiratory Pattern Blood Pressure 111/78 Blood Pressure Mean 89 Blood Pressure Source Monitor Blood Pressure Position Supine Blood Pressure Location Left Arm Pulse Ox 94 Oxygen Delivery Method Room Air Positive well nourished and well developed Constitutional Narrative: Nontoxic fatigued General Appearance ED: well developed HEENT Reports dry mucous membranes normocephalic and atraumatic Mouth ED: Yes dry mucous membranes Mouth: dry mucous membranes Eyes General Eye ED: Yes normal appearance of both eyes Neck full ROM Chest Wall Chest: Negative for tenderness Resp normal respiratory effort and normal air movement Effort and Inspection: symmetric chest movement; Negative for respiratory distress Cardio regular rhythm and no murmurs Rate: tachycardic Peripheral Pulses: pulses 2+ throughout GI GI Narrative: Tender palpation epigastrium mild tenderness right upper quadrant. There is no guarding or rebound. Negative McBurney's. No lower abdominal tenderness. Palpation: Negative for guarding or rebound tenderness present Extremity normal to inspection General Extremety ED: Negative for edema or tenderness General Extremity: Ne (more content not included)... Normal [facility] Eosinophil percentageOrdered By: Scot Gonzalez on 08-29-2024 Eosinophils/100 WBC (Bld) 0.0 % 0-5 [facility] Epithelial cells.squamous LM Ql (Urine sed)Ordered By: Scot Gonzalez on 08-29-2024 Epithelial cells.squamous LM.HPF (Urine sed) [#/Area] 0 /[HPF] 5-10 [facility] Erythrocyte distribution wid th ratioOrdered By: Scot Gonzalez on 08-29-2024 Erythrocyte distribution width (RBC) [Ratio] 12.8 % 11.6-14.6 [facility] Erythrocyte distribution wid th standard deviationOrdered By: Scot Gonzalez on 08-29-2024 Erythrocyte distribution width (RBC) [Entitic vol] 38.4 fL 35.1-43.9 [facility] Estimation of creatinine [place] aranceOrdered By: Scot Gonzalez on 08-29-2024 Estimated Creatinine Clearance Calc 95.78 ml/min 50-250 [facility] GFR/1.73 sq M.predicted yvonne g non-blacks MDRD (S/P/Bld) [Vol rate/Area]Ordered By: Scot Gonzalez on 08-29-2024 Estimated GFR (MDRD) Non-Af Amer 99 >60 [facility] Comment on above: mL/min/1.73m2 CKD-EP I Creatinine Equation (2020) Gallbladderon 08-29-2024 Gallbladder [facility] Services [address] [place], [place] [id number] Gallbladder MR#: [id number] Acct: [id number] Name: QUANGALILEA RENITA Rep #: [id number] : 1975 F 48 From: Corbin Desai PCP: Dr. Milton Cody MD Status: REG ER Study: Gallbladder Date of Exam: 08/29/24 Exam# [id number] Ordering Dr: Scot Gonzalez DO PROCEDURE: Right upper quadrant ultrasound REASON FOR EXAM: Pain COMPARISON: Same day CT FINDINGS: Mildly distended gallbladder. Diffuse increased hepatic echogenicity most consistent with steatosis. Ovoid hypoechoic lesion in the right hepatic lobe measuring up to 2.7 cm. Distended gallbladder with multiple calculi. No significant gallbladder wall thickening or pericholecystic fluid. Mildly dilated common bile duct measuring 8 mm. Visualized portions of the pancreas and right kidney are within normal limits. US/Gallbladder IMPRESSION: 1. Distended gallbladder with cholelithiasis. No pericholecystic fluid or significant wall thickening. Mildly dilated common bile duct measuring 8 mm. Consider MRCP for further assessment if indicated. 2. Hepatic steatosis. 3. Nonspecific hypoechoic lesion in the right hepatic lobe, not a simple cyst. Recommend further evaluation with nonemergent contrast-enhanced MRI. [facility] CC: Dr. Scot Gonzalez DO; Dr. Milton Cody MD Lunchroom Mother: Signed Normal [facility] Glucose Ql (U)Ordered By: Austen Gonzalez on 08-29-2024 Urine Glucose (UA) Normal mg/dl Normal [facility] H AND P Exam - Hospitaliston 08-29-2024 H&P Exam - Hospitalist [facility] Medical Records Department [address] [place] [address] H P Exam - Hospitalist 08/29/24 1743 MR#: [id number] Acct: [id number] Name: GALILEA GLASS Rep #: [id number] : 1975 48 From: Spencer La DO PCP: Dr. Milton Cody MD Status:ADM IN Location: [facility] [id number] HPI - General General Date of Admission: 08/29/24 Date of Service: 08/29/24 Chief Complaint: Severe upper abdominal pain with nausea and fevers, URI symptoms HPI Narrative GALILEA GLASS, is a 48 F who presented to [facility] ED on 09/16 with multiple concerns including recent URI symptoms and intermittent episodes of severe upper abdominal pain radiating to the back with nausea and new onset fevers. Patient's grandson was diagnosed with RSV about 2 weeks ago and she began having URI symptoms recently that she attributed to likely RSV. However, 2 days ago she had an episode of severe upper abdominal pain with nausea. Since then she has continued to have nausea and has not developed fairly persistent upper abdominal pain radiating to the back and fevers with chills. She was found to be RSV positive in the ED. CT abdomen pelvis showed gallstones, possible gallstone in the neck of the gallbladder and mild degree of central intrahepatic biliary ductal dilation. Gallbladder ultrasound showed a distended gallbladder with cholelithiasis and mildly dilated common bile duct concerning for choledocholithiasis. Given these findings, ED physician discussed case with both Dr. Waller and Dr. Burgos. Dr. Waller saw the patient at bedside and had concern for acute cholangitis secondary to choledocholithiasis and determined to take the patient to endoscopy for ERCP this evening. Dr. Burgos also saw the patient and is recommending cholecystectomy sometime prior to discharge. Hospitalist was then contacted for admission. I saw the patient at bedside in the ED, and son were present. Patient was mildly fatigued appearing but otherwise laying back fairly comfortably in bed and conversing normally. She stated her pain was much improved from earlier with pain medication. She denied any fevers or chills currently. Denied any nausea. No other acute concerns this time. [facility] Medical History PCOS (polycystic ovarian syndrome) Migraine headache Home Medications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 Department 12/22/23 12:00 PM [facility] During your visit today, we recorded the following information about you: Temperature Pulse Respiration Blood pressure 97.6 degrees 86/minute 16/minute 128/80 Weight 93.6 kg Yung Joseph APRN.CORPORATE REPRESENTATIVE 12/22/2023 12:35 PM Signed Subjective HPI HPI September Quan is a 48 year old female who presents today for CC of right eye redness, drainage. This started 1 day ago. Has tried nothing for relief. Symptoms are worsened by nothing. Risk factors family member with pink eye currently, wears contact lenses. .Patient presents with: Eye Problem: right eye redness and matting x 1 day PAST MEDICAL HISTORY Diagnosis Date Heel spur left foot menorrhagia PCOS (polycystic ovarian syndrome) Plantar fasciitis of left foot Thyroid nodule Tinea of nail 03/28/2018 03/28/18: zygomecetes PAST SURGICAL HISTORY Procedure Laterality Date DELIVERY ONLY , low cervical DELIVERY ONLY , low cervical DELIVERY ONLY , low transverse PAST SURGICAL HISTORY OF 2012 partial thyroidectomy TX MISSED FIRST TRIMESTER SURGICAL 01/12/06 missed US GUIDED THYROID BIOPSY 06/2012 ALLERGIES Amoxicillin, Chlorhexidine, and Penicillins MEDICATIONS ARMOUR THYROID 60 mg Take 60 mg by mouth once daily. levothyroxine (SYNTHROID) 25 mcg tablet Take 25 mcg by mouth every other day. iron/vit B comp/liver extract ([id number] ORAL) Take by mouth. with folate trimethoprim-polymyxin (POLYTRIM) 10,000 unit- 1 mg/mL ophthalmic solution Use 1 Drop in the right eye four times daily for 7 days. FAMILY HISTORY Problem Relation Age of Onset Diabetes Father Heart Father TRIPLE BYPASS Cancer Father PANCREATIC Breast Cancer Maternal Grandmother Diabetes Maternal Grandmother Cancer Maternal Grandfather STOMACH CANCER Cancer Paternal Grandmother OVARIAN/UTERINE Heart Paternal Grandfather other (LUPUS) Maternal Aunt Cancer Other cousin (fa's side) melanoma dx 2007 Cancer Other GAUNT WITH BLADDER CANCCER other (Sjogren's Disease) Other Maternal cousin other (Brain Cancer) Other other (PCOS) Daughter other (PCOS) Other Paternal Cousin Social History Tobacco Use Smoking status: Never Smokeless tobacco: Never Vaping Use Vaping Use: Never used Substance Use Topics Alcohol use: No Drug use: No Review of Systems Constitutional: Negative for chills and fever. HENT: Negative for ear discharge, ear pain and sore throat. Eyes: Positive for discharge and redness. Negative for blurred vision, double vision, photophobia and pain. Neurological: Negative for headaches. Objective Physical Exam Constitutional: General: She is not in acute distress. Appearance: She is not toxic-appearing. HENT: Right Ear: Hearing, tympanic membrane and external ear normal. Left Ear: Hearing, tympanic membrane, ear canal and external ear normal. Nose: No mucosal edema. Mouth/Throat: Pharynx: Uvula midline. Eyes: General: Right eye: Discharge present. Left eye: No discharge. Conjunctiva/sclera: Right eye: Right conjunctiva is injected. Left eye: Left conjunctiva is not injected. Lymphadenopathy: Cervical: Right cervical: No superficial cervical adenopathy. Left cervical: No superficial cervical adenopathy. Comments: No cervical lymphadenopathy bilaterally Neurological: Mental Status: She is oriented to person, place, and time. ASSESSMENT/PLAN: 1. Bacterial conjunctivitis - ICD9: 372.39, 041.9, ICD10: H10.9 Bacterial - see medication orders - course and contagiousness issues discussed, including hand washing. - Instructed to call if high fever, development of periorbital redness or swelling, eye pain, visual changes, concerns or if symptoms persist. - POLYMYXIN B SULFATE 10,000 UNIT-TRIMETHOPRIM 1 MG/ML EYE DROPS Yung Joseph APRN.CORPORATE REPRESENTATIVE Allergies As of Date: 12/22/2023 Noted Allergy Reaction AMOXICILLIN 02/16/2005 4 - Hives CHLORHEXIDINE 08/15/2007 2 - Rash Comments: Pt had extensive rash and itching after receiving this as a skin preparation prior to C Section 08/06/07 PENICILLINS 02/16/2005 4 - Hives Date Reviewed: 12/22/2023 Reviewed by: Yesika Velasquez MA - Fully Assessed Reason for Visit: Eye Problem [43] Cmt: right eye redness and matting x 1 day Primary Visit Diagnosis:Bacterial conjunctivitis [H10.9] Order(s):trimethoprim- polymyxin (POLYTRIM) 10,000 unit- 1 mg/mL ophthalmic solutionUse 1 Drop in the right eye four times daily for 7 days.Disp: 10 mLRfl: 0 Prescriptions as of 12/22/2023 - iron/vit B comp/liver extract ([id number] ORAL) Take by mouth. with folate - trimethoprim-polymyxin (POLYTRIM) 10,000 unit- 1 mg/mL ophthalmic solution Use 1 Jose (more content not included)... Normal [facility] CBC W Auto Differential pane l (Bld)on 07-27-2023 Basophils (Bld) [#/Vol] 0.05 10*3/uL <0.11 k/uL [facility] Basophils/100 WBC (Bld) 0.8 % C [facility] Differential cell count method Nom (Bld) Auto [facility] Eosinophils (Bld) [#/Vol] 0.11 10*3/uL <0.46 k/uL [facility] Eosinophils/100 WBC (Bld) 1.7 % [facility] Erythrocyte distribution width (RBC) [Ratio] 13.3 % 11.5 - 15.0 % [facility] Hematocrit (Bld) [Volume fraction] 37.6 % 36.0 - 46.0 % [facility] Hemoglobin (Bld) [Mass/Vol] 12.0 g/dL 11.5 - 15.5 g/dL [facility] Immature granulocytes (Bld) [#/Vol] <0.10 k/uL [facility] Immature granulocytes/100 WBC (Bld) 0.3 % [facility] Lymphocytes (Bld) [#/Vol] 1.76 10*3/uL 1.00 - 4.00 k/uL [facility] Lymphocytes/100 WBC (Bld) 26.5 % [facility] MCH (RBC) [Entitic mass] 25.3 pg Low 26. 0 - 34.0 pg [facility] MCHC (RBC) [Mass/Vol] 31.9 g/dL 30.5 - 36.0 g/dL [facility] MCV (RBC) [Entitic vol] 79.3 fL Low 80.0 - 100.0 fL [facility] Monocytes (Bld) [#/Vol] 0.44 10*3/uL <0.87 k/uL [facility] Monocytes/100 WBC (Bld) 6.6 % C [facility] Neutrophils (Bld) [#/Vol] 4.25 10*3/uL 1.45 - 7.50 k/uL [facility] Neutrophils/100 WBC (Bld) 64.1 % [facility] Nucleated RBC (Bld) [#/Vol] <0.01 k/uL [facility] Nucleated RBC/100 WBC (Bld) [Ratio] 0.0 /100 WBC [facility] Platelet mean volume (Bld) [Entitic vol] 10.3 fL 9.0 - 12.7 fL [facility] Platelets (Bld) [#/Vol] 311 10*3/uL 150 - 400 k/uL [facility] RBC (Bld) [#/Vol] 4.74 10*6/uL 3.90 - 5.2 0 m/uL [facility] WBC (Bld) [#/Vol] 6.63 10*3/uL 3.70 - 11. 00 k/uL [facility] ESR Westergren method (Bld) [Velocity]on 07-27-2023 ESR (Bld) [Velocity] 7 mm/h 0 - 20 mm/hr [facility] KERRI SCREENINGon 11-09-2021 [facility] Vital Signs Date Time Vital Sign Value Performing Clinician Facility 11-10-2024 14:02-0400 Body temperature 97.8 [degF] Dr. Milton Cody MD Work Phone: [phone] [place] [address] 11-10-2024 14:02-0400 Diastolic blood pressure 81 mm[Hg] Dr. Milton Cody MD Work Phone: [phone] [place] [address] 11-10-2024 14:02-0400 Heart rate 69 /min Dr. Milton Cody MD Work Phone: [phone] [place] [address] 11-10-2024 14:02-0400 Respiratory rate 16 /min Dr. Milton Cody MD Work Phone: [phone])[phone] [place] [address] 11-10-2024 14:02-0400 SaO2% (BldA) [Mass fraction] 98 % Dr. Milton Cody MD Work Phone: [phone])[phone] [place] [address] 11-10-2024 14:02-0400 Systolic blood pressure 129 mm[Hg] Dr. Milton Cody MD Work Phone: [phone])[phone] [place] [address] 11-10-2024 11:44-0400 Body height 157.[address] Milton Cody MD Work Phone: [phone] [place] [address] 11-10-2024 11:44-0400 Body mass index (BMI) [Ratio] 35.9 kg/m2 Dr. Milton Cody MD Work Phone: [phone])[phone] [place] [address] 11-10-2024 11:44-0400 Body weight [address] Milton Cody MD Work Phone: [facility] 11-07-2024 14:43-0400 Body height 157.5 cm Kevin Marvin MD Work Phone: [facility] 11-07-2024 14:43-0400 Body mass index (BMI) [Ratio] 36.03 kg/m2 Kevin Marvin MD Work Phone: [facility] 11-07-2024 14:43-0400 Body weight 89.36 kg Kevin Marvin MD Work Phone: [facility] 11-07-2024 14:43-0400 Diastolic blood pressure 88 mm[Hg] Kevin Marvin MD Work Phone: [facility] 11-07-2024 14:43-0400 Heart rate 91 /min Kevin Marvin MD Work Phone: [facility] 11-07-2024 14:43-0400 Respiratory rate 18 /min Kevin Marvin MD Work Phone: [facility] 11-07-2024 14:43-0400 SaO2% (BldA) [Mass fraction] 98 % Kevin Marvin MD Work Phone: [facility] 11-07-2024 14:43-0400 Systolic blood pressure 124 mm[Hg] Kevin Marvin MD Work Phone: [facility] 11-07-2024 09:13-0400 Body height 157.5 cm Chavez Dimare ASSISTANT CHIEF OF POLICE.CORPORATE REPRESENTATIVE Work Phone: [facility] 11-07-2024 09:13-0400 Body mass index (BMI) [Ratio] 36.29 kg/m2 Chavez Dimare ASSISTANT CHIEF OF POLICE.CORPORATE REPRESENTATIVE Work Phone: [facility] 11-07-2024 09:13-0400 Body weight 90 kg Chavez Dimare ASSISTANT CHIEF OF POLICE.CORPORATE REPRESENTATIVE Work Phone: [facility] 11-07-2024 09:13-0400 Diastolic blood pressure 89 mm[Hg] Chavez Dimare ASSISTANT CHIEF OF POLICE.CORPORATE REPRESENTATIVE Work Phone: [facility] 11-07-2024 09:13-0400 Heart rate 75 /min Chavez Dimare ASSISTANT CHIEF OF POLICE.CORPORATE REPRESENTATIVE Work Phone: [facility] 11-07-2024 09:13-0400 SaO2% (BldA) [Mass fraction] 97 % Chavez Dimare ASSISTANT CHIEF OF POLICE.CORPORATE REPRESENTATIVE Work Phone: [facility] 11-07-2024 09:13-0400 Systolic blood pressure 120 mm[Hg] Chavez Dimare ASSISTANT CHIEF OF POLICE.CORPORATE REPRESENTATIVE Work Phone: [facility] 10-28-2024 13:56-0400 Body mass index (BMI) [Ratio] 36.58 kg/m2 Milton Cody MD Work Phone: [facility] 10-28-2024 13:56-0400 Body weight 90.72 kg Milton Cody MD Work Phone: [facility] 10-28-2024 13:56-0400 Diastolic blood pressure 80 mm[Hg] Milton Cody MD Work Phone: [facility] 10-28-2024 13:56-0400 Heart rate 102 /min Milton Cody MD Work Phone: [facility] 10-28-2024 13:56-0400 Respiratory rate 16 /min Milton Cody MD Work Phone: [facility] 10-28-2024 13:56-0400 SaO2% (BldA) [Mass fraction] 99 % Milton Cody MD Work Phone: [facility] 10-28-2024 13:56-0400 Systolic blood pressure 128 mm[Hg] Milton Cody MD Work Phone: [facility] 10-03-2024 12:05-0400 Diastolic blood pressure 100 mm[Hg] Milton Cody MD Work Phone: [facility] 10-03-2024 12:05-0400 Systolic blood pressure 152 mm[Hg] Mliton Cody MD Work Phone: [facility] 10-03-2024 10:42-0400 Body height 157.5 cm Milton Cody MD Work Phone: [facility] 10-03-2024 10:42-0400 Body mass index (BMI) [Ratio] 35.67 kg/m2 Milton Cody MD Work Phone: [facility] 10-03-2024 10:42-0400 Body weight 88.45 kg Milton Cody MD Work Phone: [facility] 10-03-2024 10:42-0400 Heart rate 95 /min Milton Cody MD Work Phone: [facility] 10-03-2024 10:42-0400 SaO2% (BldA) [Mass fraction] 99 % Milton Cody MD Work Phone: [facility] 09-02-2024 13:11-0400 Body temperature 98.5 [degF] Dr. Milton Cody MD Work Phone: 5(473)049-636736 [place] [address] 09-02-2024 13:11-0400 Diastolic blood pressure 93 mm[Hg] Dr. Milton Cody MD Work Phone: 0(399)533-508036 [place] [address] 09-02-2024 13:11-0400 Heart rate 89 /min Dr. Milton Cody MD Work Phone: 2(261)430-690236 [place] [address] 09-02-2024 13:11-0400 Respiratory rate 18 /min Dr. Milton Cody MD Work Phone: 7(649)732-124436 [place] [address] 09-02-2024 13:11-0400 SaO2% (BldA) [Mass fraction] 98 % Dr. Milton Cody MD Work Phone: 5(960)613-314136 [place] [address] 09-02-2024 13:11-0400 Systolic blood pressure 138 mm[Hg] Dr. Milton Cody MD Work Phone: 1(283)199-693336 [place] [address] 08-31-2024 06:06-0400 Body height 157.[address] Milton Cody MD Work Phone: 4(060)777-891636 [place] [address] 08-31-2024 06:06-0400 Body mass index (BMI) [Ratio] 37.2 kg/m2 Dr. Milton Cody MD Work Phone: 1(116)741-653936 [place] [address] 08-31-2024 06:06-0400 Body weight 92.[address] Milton Cody MD Work Phone: 7(309)156-357736 [place] [address] 08-29-2024 20:00-0500 Body temperature 98.2 [degF] Dr. Milton Cody MD Work Phone: 4(790)045-445536 [place] [address] 08-29-2024 20:00-0500 Diastolic blood pressure 89 mm[Hg] Dr. Milton Cody MD Work Phone: 5(082)850-411036 [place] [address] 08-29-2024 20:00-0500 Heart rate 112 /min Dr. Milton Cody MD Work Phone: 5(277)093-750336 [place] [address] 08-29-2024 20:00-0500 Respiratory rate 19 /min Dr. Milton Cody MD Work Phone: [facility] 08-29-2024 20:00-0500 SaO2% (BldA) [Mass fraction] 98 % Dr. Milton Cody MD Work Phone: [facility] 08-29-2024 20:00-0500 Systolic blood pressure 109 mm[Hg] Dr. Milton Cody MD Work Phone: [facility] 08-29-2024 18:21-0500 Body height 157.[address] Milton Cody MD Work Phone: [facility] 08-29-2024 18:21-0500 Body mass index (BMI) [Ratio] 36.9 kg/m2 Dr. Milton Cody MD Work Phone: [facility] 08-29-2024 18:21-0500 Body weight 91.[address] Milton Cody MD Work Phone: [facility] 08-29-2024 12:48-0500 Body mass index (BMI) [Ratio] 36.95 kg/m2 Kaylan Suppan ASSISTANT CHIEF OF POLICE.CORPORATE REPRESENTATIVE Work Phone: [facility] 08-29-2024 12:48-0500 Body temperature 103.41 [degF] Kaylan Suppan ASSISTANT CHIEF OF POLICE.CORPORATE REPRESENTATIVE Work Phone: [facility] 08-29-2024 12:48-0500 Body weight 91.63 kg Kaylan Suppan ASSISTANT CHIEF OF POLICE.CORPORATE REPRESENTATIVE Work Phone: [facility] 08-29-2024 12:48-0500 Diastolic blood pressure 72 mm[Hg] Kaylan Suppan ASSISTANT CHIEF OF POLICE.CORPORATE REPRESENTATIVE Work Phone: [facility] 08-29-2024 12:48-0500 Heart rate 145 /min Kaylan Suppan ASSISTANT CHIEF OF POLICE.CORPORATE REPRESENTATIVE Work Phone: [facility] 08-29-2024 12:48-0500 SaO2% (BldA) [Mass fraction] 99 % Kaylan Suppan ASSISTANT CHIEF OF POLICE.CORPORATE REPRESENTATIVE Work Phone: [facility] 08-29-2024 12:48-0500 Systolic blood pressure 112 mm[Hg] Kaylan Rodriguez ASSISTANT CHIEF OF POLICE.CORPORATE REPRESENTATIVE Work Phone: [facility] 07-26-2024 12:43-0500 Body mass index (BMI) [Ratio] 37.82 kg/m2 Leonard Mayes APRN.CORPORATE REPRESENTATIVE Work Phone: [facility] 07-26-2024 12:43-0500 Body temperature 98.91 [degF] Leonard Mayes APRN.CORPORATE REPRESENTATIVE Work Phone: [facility] 07-26-2024 12:43-0500 Body weight 93.8 kg Leonard Mayes APRN.CORPORATE REPRESENTATIVE Work Phone: [facility] 07-26-2024 12:43-0500 Diastolic blood pressure 88 mm[Hg] Leonard Mayes APRN.CORPORATE REPRESENTATIVE Work Phone: [facility] 07-26-2024 12:43-0500 Heart rate 115 /min Leonard Mayes APRN.CORPORATE REPRESENTATIVE Work Phone: [facility] 07-26-2024 12:43-0500 Respiratory rate 20 /min Leonard Mayes APRN.CORPORATE REPRESENTATIVE Work Phone: [facility] 07-26-2024 12:43-0500 SaO2% (BldA) [Mass fraction] 98 % Leonard Mayes APRN.CORPORATE REPRESENTATIVE Work Phone: [facility] 07-26-2024 12:43-0500 Systolic blood pressure 112 mm[Hg] Leonard Mayes APRN.CORPORATE REPRESENTATIVE Work Phone: [facility] 07-15-2024 14:44-0500 Diastolic blood pressure 87 mm[Hg] Crystal Haagen ASSISTANT CHIEF OF POLICE.CORPORATE REPRESENTATIVE Work Phone: [facility] 07-15-2024 14:44-0500 Heart rate 100 /min Crystal Haagen ASSISTANT CHIEF OF POLICE.CORPORATE REPRESENTATIVE Work Phone: [facility] 07-15-2024 14:44-0500 Respiratory rate 16 /min Crystal Haagen ASSISTANT CHIEF OF POLICE.CORPORATE REPRESENTATIVE Work Phone: [facility] 07-15-2024 14:44-0500 SaO2% (BldA) [Mass fraction] 100 % Crystal Valentine ASSISTANT CHIEF OF POLICE.CORPORATE REPRESENTATIVE Work Phone: [facility] 07-15-2024 14:44-0500 Systolic blood pressure 123 mm[Hg] Crystal Valentine ASSISTANT CHIEF OF POLICE.CORPORATE REPRESENTATIVE Work Phone: [facility] 12-24-2023 18:28-0400 Body mass index (BMI) [Ratio] 37.68 kg/m2 Milton Cody MD Work Phone: [facility] 12-24-2023 18:28-0400 Body weight 93.44 kg Milton Cody MD Work Phone: [facility] 12-24-2023 18:28-0400 Diastolic blood pressure 72 mm[Hg] Milton Cody MD Work Phone: [facility] 12-24-2023 18:28-0400 Heart rate 98 /min Milton Cody MD Work Phone: [facility] 12-24-2023 18:28-0400 SaO2% (BldA) [Mass fraction] 97 % Milton Cody MD Work Phone: [facility] 12-24-2023 18:28-0400 Systolic blood pressure 114 mm[Hg] Milton Cody MD Work Phone: [facility] 12-22-2023 11:58-0400 Body mass index (BMI) [Ratio] 37.74 kg/m2 Yung Joseph APRN.CORPORATE REPRESENTATIVE Work Phone: [facility] 12-22-2023 11:58-0400 Body temperature 97.59 [degF] Yung Joseph APRN.CORPORATE REPRESENTATIVE Work Phone: [facility] 12-22-2023 11:58-0400 Body weight 93.6 kg Yung Joseph APRN.CORPORATE REPRESENTATIVE Work Phone: [facility] 12-22-2023 11:58-0400 Diastolic blood pressure 80 mm[Hg] Yung Joseph APRN.CORPORATE REPRESENTATIVE Work Phone: [facility] 12-22-2023 11:58-0400 Heart rate 86 /min Yung Joseph ASSISTANT CHIEF OF POLICE.CORPORATE REPRESENTATIVE Work Phone: [facility] 12-22-2023 11:58-0400 Respiratory rate 16 /min Yung Joseph ASSISTANT CHIEF OF POLICE.CORPORATE REPRESENTATIVE Work Phone: [facility] 12-22-2023 11:58-0400 SaO2% (BldA) [Mass fraction] 98 % Yung Joseph ASSISTANT CHIEF OF POLICE.CORPORATE REPRESENTATIVE Work Phone: [facility] 12-22-2023 11:58-0400 Systolic blood pressure 128 mm[Hg] Yung Joseph ASSISTANT CHIEF OF POLICE.CORPORATE REPRESENTATIVE Work Phone: [facility] 07-27-2023 16:04-0500 Body height 157.5 cm Milton Cody MD Work Phone: [facility] 07-27-2023 16:04-0500 Body weight 91.17 kg Milton Cody MD Work Phone: [facility] 07-27-2023 16:04-0500 Diastolic blood pressure 88 mm[Hg] Milton Cody MD Work Phone: [facility] 07-27-2023 16:04-0500 Heart rate 83 /min Milton Cody MD Work Phone: [facility] 07-27-2023 16:04-0500 SaO2% (BldA) [Mass fraction] 96 % Milton Cody MD Work Phone: [facility] 07-27-2023 16:04-0500 Systolic blood pressure 126 mm[Hg] Milton Cody MD Work Phone: [facility] 10-18-2022 13:29-0400 Body height 157.5 cm Milton Cody MD Work Phone: [facility] 10-18-2022 13:29-0400 Body weight 88.91 kg Milton Cody MD Work Phone: [facility] 10-18-2022 13:29-0400 Diastolic blood pressure 80 mm[Hg] Milton Cody MD Work Phone: [facility] 10-18-2022 13:29-0400 Heart rate 66 /min Milton Cody MD Work Phone: [facility] 10-18-2022 13:29-0400 SaO2% (BldA) [Mass fraction] 99 % Milton Cody MD Work Phone: [facility] 10-18-2022 13:29-0400 Systolic blood pressure 110 mm[Hg] Milton Cody MD Work Phone: [facility] 09-20-2022 14:00-0400 Body height 157.5 cm Milton Cody MD Work Phone: [facility] 09-20-2022 14:00-0400 Body weight 88.91 kg Milton Cody MD Work Phone: [facility] 09-20-2022 14:00-0400 Diastolic blood pressure 84 mm[Hg] Milton Cody MD Work Phone: [facility] 09-20-2022 14:00-0400 Heart rate 103 /min Milton Cody MD Work Phone: [facility] 09-20-2022 14:00-0400 SaO2% (BldA) [Mass fraction] 98 % Milton Cody MD Work Phone: [facility] 09-20-2022 14:00-0400 Systolic blood pressure 140 mm[Hg] Milton Cody MD Work Phone: [facility] 07-25-2022 14:15-0500 Body weight 87.36 kg Ariadne [place] ASSISTANT CHIEF OF POLICE.CORPORATE REPRESENTATIVE Work Phone: [facility] 07-25-2022 14:15-0500 Diastolic blood pressure 80 mm[Hg] Ariadne [place] ASSISTANT CHIEF OF POLICE.CORPORATE REPRESENTATIVE Work Phone: [facility] 07-25-2022 14:15-0500 Systolic blood pressure 120 mm[Hg] Ariadne [place] ASSISTANT CHIEF OF POLICE.CORPORATE REPRESENTATIVE Work Phone: [facility] 05-22-2022 14:28-0500 Body height 157.5 cm Farhana Max MD Work Phone: [facility] 05-22-2022 [id number] Body weight 85.73 kg Farhana Max MD Work Phone: [facility] 05-22-2022 14:28-0500 Diastolic blood pressure 72 mm[Hg] Farhana Max MD Work Phone: [facility] 05-22-2022 14:-050 Systolic blood pressure 116 mm[Hg] Farhana Max MD Work Phone: [facility] Encounters Encounter Date Encounter Type Care Provider Facility Start: 12-03-2024 ambulatory [facility] Facility :[facility] Start: 11-27-2024 End: 11-27-2024 ambulatory [facility] Facility:[facility] Start: 11-27-2024 End: 11-27-2024 Patient encounter procedure Paolosuly Waller DO -Laboratory Work Phone: Start: 11-20-2024 End: 11-20-2024 ambulatory KEVIN MARVIN Facility:[facility] Start: 11-19-2024 End: 11-19-2024 Telephone encounter Mahesh Gardiner [facility] Start: 11-19-2024 Encounter for other preprocedural examination [facility] [place] Start: 11-10-2024 Non-patient / Non-visit Paolo Parada nd DO -H-[facility] Start: 11-10-2024 End: 11-10-2024 Admission to same day surgery center Paolosuly Waller DO -Endoscopy Work Phone: Start: 11-10-2024 End: 11-10-[address] Milton Cody MD Work Phone: [facility] Work Phone: Start: 11-07-2024 End: 11-07-2024 Patient encounter procedure Kevin Marvin MD Work Phone: [facility] [place] Comment on above: Brugada pattern on e lectrocardiogram (Primary Dx); Family history of ischemic heart disease; Seizure (HCC) Start: 11-07-2024 End: 11-07-2024 ambulatory KEVIN MARVIN Facility:[facility] Start: 11-07-2024 End: 11-07-2024 Telephone encounter Kevin Marvin MD Work Phone: [facility] [place] Start: 11-07-2024 End: 11-07-2024 Patient encounter procedure Chavez Nickjuan francisco DENI Work Phone: Neurology Comment on above: Convulsions, unspeci fied convulsion type (HCC) (Primary Dx); Brugada pattern on electrocardiogram; Spell of abnormal behavior; Urinary incontinence, unspecified type Start: 11-07-2024 End: 11-10-2024 ambulatory [facility] Facility:[facility] Comment on above: Brugada brochure Start: 10-28-2024 End: 10-28-2024 Patient encounter procedure Milton Cody MD Work Phone: [facility] [place] Comment on above: Brugada pattern on e lectrocardiogram (Primary Dx); Other migraine without status migrainosus, not intractable Start: 10-28-2024 End: 10-28-2024 [facility] Facility:[facility] Start: 10-10-2024 End: 10-10-2024 Nursing evaluation of patient and report Mi Nurse Work Phone: [facility] [place] Comment on above: Brugada pattern on e lectrocardiogram (Primary Dx); Palpitations; Tachycardia Start: 10-10-2024 End: 10-10-2024 [facility] Facility:[facility] Start: 10-09-2024 End: 10-09-2024 ambulatory [facility] Facility:[id number] Start: 10-08-2024 End: 10-08-2024 Telephone encounter Milton Cody MD Work Phone: [facility] [place] Comment on above: Patient Update Start: 10-07-2024 End: 10-07-2024 Telephone encounter Marcelino Harris MD Work Phone: Cardiology Comment on above: New Patient Start: 10-06-2024 End: 10-31-2024 Follow-up encounter Milton Cody MD Work Phone: [facility] Start: 10-06-2024 End: 10-06-2024 ambulatory MILTON Pugh ESCOBAR Facility:[facility] Start: 10-06-2024 End: 10-06-2024 Subsequent hospital visit by physician Mri Radio Count Includes [facility] (I-Stat/1.5t) Work Phone: Radiology Comment on above: Convulsions, unspeci fied convulsion type (HCC) [R56.9] Start: 10-03-2024 End: 10-03-2024 ambulatory MILTON Pugh ESCOBAR Facility:[facility] Start: 10-03-2024 End: 10-03-2024 Patient encounter procedure Mitlon Cody MD Work Phone: [facility] Comment on above: Brugada pattern on e lectrocardiogram (Primary Dx); Palpitations; Tachycardia; Family history of cardiac disorder; Postoperative hypothyroidism; Spell of abnormal behavior; Urinary incontinence, unspecified type; Convulsions, unspecified convulsion type (HCC); Cholecystitis; RSV (acute bronchiolitis due to respiratory syncytial virus) Start: 09-26-2024 End: 09-26-[address] Deacon Burgos MD -[facility] Work Phone: Start: 09-26-2024 End: 09-26-2024 ambulatory Deacon Burgos Facility:[facility] Start: 09-25-2024 End: 09-26-2024 Telephone encounter Milton Cody MD Work Phone: [facility] Comment on above: Zio results Start: 09-19-2024 End: 09-19-[address] Levi Cisneros MD -[facility] Work Phone: Start: 09-19-2024 End: 09-19-2024 ambulatory [facility] Facility:[facility] Start: 09-17-2024 End: 09-17-[address] Milton Cody MD Work Phone: [facility] Work Phone: Start: 09-17-2024 End: 09-17-[address] Deacon Burgos MD -Nuclear Medicine, [facility] Work Phone: Start: 09-17-2024 End: 09-17-2024 ambulatory Deacon Burgos Facility:[facility] Start: 09-10-2024 End: 09-10-2024 ambulatory Milton Escobar Facility:[facility] Start: 09-10-2024 End: 09-10-[address] Deacon Burgos MD -[facility] Work Phone: Start: 09-02-2024 Non-patient / Non-visit Dr. Ed BELTRAN -[facility] Work Phone: Start: 09-02-2024 Non-patient / Non-visit Melani lyons PA-C [facility] Start: 09-01-2024 End: 11-01-2024 Follow-up encounter Kaylan Rodriguez ASSISTANT CHIEF OF POLICE.CORPORATE REPRESENTATIVE Work Phone: [facility] Start: 09-01-2024 End: 09-01-2024 Telephone encounter Kaylan Rodriguez ASSISTANT CHIEF OF POLICE.CORPORATE REPRESENTATIVE Work Phone: [facility] Start: 09-01-2024 [facility] Start: 09-01-2024 Non-patient / Non-visit Dr. Jonathan fam MD -[facility] Work Phone: Start: 08-31-2024 Non-patient / Non-visit Dr. Deacon Burgos MD -[facility] Start: 08-31-2024 Non-patient / Non-visit Dr. Jonathan fam MD -[facility] Work Phone: Start: 08-30-2024 Non-patient / Non-visit Dr. Deacon Burgos MD -[facility] Start: 08-29-2024 Non-patient / Non-visit Dr. Deacon Burgos MD -[facility] Start: 08-29-2024 ambulatory Paolo Mittie Facility :[facility] Start: 08-29-2024 End: 09-02-2024 Evaluation and management of inpatient Dr. Spencer Mosteller DO -Progressive Care Unit Work Phone: Start: 08-29-2024 End: 08-29-2024 ambulatory [facility] Facility:[facility] Start: 08-29-2024 End: 08-29-2024 Office outpatient visit 15 minutes Kaylan Rodriguez APRN.CORPORATE REPRESENTATIVE Work Phone: [facility] [place] Comment on above: Acute viral syndrome (Primary Dx); Nausea Start: 08-11-2024 End: 10-11-2024 Follow-up encounter Crystal Valentine APRN.CORPORATE REPRESENTATIVE Work Phone: [facility] Start: 08-11-2024 End: 08-11-2024 [facility] Facility:[facility] Start: 07-27-2024 End: 07-27-2024 Telephone encounter Claritza MAGDALENO Work Phone: [facility] Comment on above: Results Start: 07-26-2024 End: 07-26-2024 [facility] Facility:[facility] Start: 07-26-2024 End: 07-26-2024 Patient encounter procedure Leonard Mayes APRN.CORPORATE REPRESENTATIVE Work Phone: [facility] Comment on above: URI, acute (Primary Dx) Start: 07-22-2024 End: 07-22-2024 [facility] Facility:[facility] Start: 07-22-2024 End: 07-22-2024 Nursing evaluation of patient and report Mi Nurse Work Phone: [facility] [place] Comment on above: Tachycardia (Primary Dx); Chest pressure Start: 07-21-2024 End: 07-21-2024 Telephone encounter Crystal Valentine APRN.CORPORATE REPRESENTATIVE Work Phone: [facility] [place] Comment on above: Zio question Start: 07-18-2024 End: 07-18-2024 Telephone encounter Crystal Valentine APRN.CORPORATE REPRESENTATIVE Work Phone: [facility] [place] Comment on above: Results Start: 07-16-2024 End: 07-16-2024 Telephone encounter Crystal Valentine APRN.CORPORATE REPRESENTATIVE Work Phone: [facility] [place] Comment on above: Orders Start: 07-15-2024 End: 07-15-2024 Office outpatient visit 25 minutes Crystal Valentine APRN.CORPORATE REPRESENTATIVE Work Phone: [facility] Comment on above: Chest pressure (Prim freddy Dx); Tachycardia; Arthralgia, unspecified joint Start: 07-15-2024 End: 07-15-2024 ambulatory Milton Cody MD Work Phone: [facility] Comment on above: heart rate changes; Gas Start: 05-21-2024 End: 05-21-2024 ambulatory MILTON CODY Facility:[facility] Start: 05-21-2024 End: 05-21-2024 Subsequent hospital visit by physician Screen Mammo Count Includes [facility] Mammogram Comment on above: Encounter for screen ing mammogram for malignant neoplasm of breast [Z12.31] Start: 05-14-2024 End: 05-14-2024 Telephone encounter Farhana Max MD Work Phone: OB/Gynecology Comment on above: Orders (Mammo Screen W JAE) Start: 03-01-2024 End: 03-01-2024 ambulatory MILTON CODY Facility:[facility] Start: 02-29-2024 End: 03-04-2024 Telephone encounter Milton Cody MD Work Phone: [facility] Comment on above: lab orders faxing fr Endocrinology Start: 02-23-2024 End: 02-23-2024 Orders Only Rolanda Montes Work Phone: [facility] Comment on above: Nontoxic multinodula r goiter (Primary Dx); Polycystic ovaries Start: 01-02-2024 Telephone encounter Milton Cody MD Work Phone: [facility] [place] Comment on above: Results; ultrasound Start: 01-01-2024 ambulatory MILTON CODY Facility :[id number] Start: 01-01-2024 End: 01-01-2024 Subsequent hospital visit by physician [place] Venkat Craven [facility] Comment on above: Varicose veins of le ft lower extremity, unspecified whether complicated [I83.92] Start: 12-24-2023 End: 12-24-2023 Subsequent hospital visit by physician Sayda Count Includes [facility] [place] Work Phone: Radiology Comment on above: Chronic pain of left ankle [M25.572, G89.29] Start: 12-24-2023 End: 12-24-2023 Patient encounter procedure Milton Cody MD Work Phone: [facility] [place] Comment on above: Chronic pain of left ankle (Primary Dx); Varicose veins of left lower extremity, unspecified whether complicated Start: 12-24-2023 End: 12-24-2023 ambulatory MILTON CODY Facility:[facility] Start: 12-24-2023 Telephone encounter Milton Cody MD Work Phone: Internal Medicine [place] Comment on above: Appointment Start: 12-22-2023 End: 12-22-2023 ambulatory Milton Cody MD Work Phone: [facility] Comment on above: Conjunctivitis Start: 12-22-2023 End: 12-22-2023 Patient encounter procedure Yung Joseph APRN.CNP Work Phone: [facility] Comment on above: Bacterial conjunctiv itis (Primary Dx) Start: 07-30-2023 Telephone encounter Milton Cody MD Work Phone: [facility] [place] Comment on above: Results Start: 07-27-2023 End: 07-27-2023 Patient encounter procedure Milton Cody MD Work Phone: [facility] [place] Comment on above: Fatigue, unspecified type (Primary Dx); Postoperative hypothyroidism; PCOS (polycystic ovarian syndrome); Arthralgia, unspecified joint; Hot flashes Start: 05-10-2023 Documentation procedure Mammog amanda Coordinator [facility] Start: 05-10-2023 Letter encounter Mammography Coordinator [facility] Department Start: 05-09-2023 End: 05-09-2023 Subsequent hospital visit by physician Screen Mammo Count Includes [facility] Mammogram Comment on above: Encounter for screen ing mammogram for malignant neoplasm of breast [Z12.31] Start: 04-25-2023 ambulatory Milton Cody MD Work Phone: Internal Medicine [facility] [place] Start: 10-18-2022 End: 10-18-2022 Patient encounter procedure Milton Cody MD Work Phone: [facility] [place] Comment on above: Fatigue, unspecified type (Primary Dx); Need for vaccination; Screening for colon cancer; Postoperative hypothyroidism Start: 09-21-2022 Telephone encounter Milton Cody MD Work Phone: [facility] [place] Comment on above: Results Start: 09-20-2022 End: 09-20-2022 Patient encounter procedure Milton Cody MD Work Phone: [facility] [place] Comment on above: Fatigue, unspecified type (Primary Dx); Dermatitis; Flushing; PCOS (polycystic ovarian syndrome); Postoperative hypothyroidism Start: 07-25-2022 End: 07-25-2022 Patient encounter procedure Ariadne Ramsey APRN.CNP Work Phone: OB/Gynecology Comment on above: Abscess of right gen ital labia (Primary Dx) Start: 05-22-2022 End: 05-22-2022 Patient encounter procedure Farhana Max MD Work Phone: OB/Gynecology Comment on above: Encounter for gyneco logical examination (general) (routine) without abnormal findings (Primary Dx); Encounter for screening mammogram for malignant neoplasm of breast Start: 05-22-2022 End: 05-22-2022 Patient encounter status Farhana Max MD Work Phone: OB/Gynecology Start: 11-14-2021 End: 11-14-2021 Patient encounter procedure [facility] Start: 11-10-2021 Orders Only Farhana Max MD Work Phone: OB/Gynecology Comment on above: Abnormal mammogram ( Primary Dx) mammogram at [facility] Start: 11-09-2021 Documentation procedure Mammog amanda Coordinator [facility] Start: 11-09-2021 Letter encounter Mammography Coordinator [facility] Department Start: 11-09-2021 End: 11-09-2021 Subsequent hospital visit by physician Screen Mammo Count Includes [facility] Mammogram Comment on above: Encounter for screen ing mammogram for breast cancer [Z12.31] Procedures Date Procedure Procedure Detail Performing Clinician Start: 11-10-2024 End: 11-10-[address] Milton Cody MD Work Phone: Start: 11-10-[address] Milton Cody MD Work Phone: Start: 10-06-2024 Mri brain brain stem w/o w/contrast material Milton Cody MD Work Phone: Start: 09-17-2024 Radionuclide study of abdomen Dr. Juve Cody MD Work Phone: Start: 09-02-[address] Zeeshan Cody MD Work Phone: Start: 08-31-2024 Total cholecystectomy and exploration of common bile duct Dr. Milton Cody MD Work Phone: Start: 08-31-2024 Serum inorganic phosphate measurement Dr. Milton Cody MD Work Phone: Start: 08-31-[address] Milton Cody MD Work Phone: Start: 08-31-[address] Milton Cody MD Work Phone: Start: 08-29-2024 End: 08-29-2024 End[address] Milton Cody MD Work Phone: Start: 08-29-[address] Milton Cody MD Work Phone: Start: 08-29-2024 Urnls dip stick/tablet reagent auto microscopy Dr. Milton Cody MD Work Phone: Start: 08-29-2024 US scan of gallbladder Dr. Milton Cody MD Work Phone: Start: 08-29-2024 X-ray of chest, PA and lateral views Dr. Milton Cody MD Work Phone: Start: 08-29-2024 Computed tomography of abdomen and pelvis with intravenous contrast Dr. Milton Cody MD Work Phone: Start: 08-29-[address] Milton Cody MD Work Phone: Start: 08-29-2024 SARS-CoV-2, Influenza & RSV (PCR) Dr. Milton Cody MD Work Phone: Start: 08-29-[address] Milton Cody MD Work Phone: Start: 07-15-2024 Ecg routine ecg w/least 12 lds i&r only [facility] Provider Start: 07-15-2024 Lipid 1995 panel - Serum or Plasma Crystal Valentine ASSISTANT CHIEF OF POLICE.CORPORATE REPRESENTATIVE Work Phone: Start: 01-01-2024 Dup-scan xtr veins unilateral/limited study Milton Cody MD Work Phone: Start: 12-24-2023 Radex ankle complete minimum 3 views Milton Cody MD Work Phone: Start: 11-14-2021 Mammography Start: 11-09-2021 End: 11-09-2021 Screening mammography bi 2-view breast inc cad Farhana Max MD Work Phone: Start: 08-03-2021 Lipid 1996 panel - Serum or Plasma Milton Cody MD Work Phone: Start: 09-10-2020 Adult depression screening assessment Screen Wstr History of cholecystectomy S/P cholecyste ctomy Dr. Deacon Burgos MD Comment on above: Laparoscopic SUBTOTAL cholecystectomy. P atient presents for postoperative visit following the above procedure. She has done well and clinically is markedly improved with no residual abdominal discomfort on exam. She is well-healing with that exam. I do not see evidence of a bile leak in her drain. Further, her drain log suggest decreasing volume from the drain. I did inform her that I would like to formally study this with HIDA imaging to confirm no bile leak before the drain is removed. Final pathology from her operation showed evidence of acute gangrenous cholecystitis. I suspect there is also an underlying chronic component as patient points to a number of prior episodes of abdominal pain that went unexplained. Laparoscopic SUBTOTA L cholecystectomy. Patient now doing very well following surgery. Patient with some residual induration of the soft tissue around the exit site for drain. This is progressively improving with the limited wound care that is being provided and there are no signs of infection. Between this and the appearance on exam today I believe this simply represents healing after tissue reaction to the foreign body within drain tubing. Patient encouraged to continue making use of warm compresses and can consider keeping the area covered during the day but letting it open at night to dry the area out thoroughly. Do not believe any further intervention will be required. From a surgical standpoint patient requires no further follow-up, however, she is encouraged to follow-up with gastroenterology for common bile duct stent removal. Referral will be made. History of cholecystectomy S/P cholecyste ctomy Dr. Levi Cisneros MD History of cholecystectomy S/P cholecyste ctomy Dr. Deacon Burgos MD Plan of Treatment Date Care Activity Detail Author Start: 10-18-2032 Urine microalbumin profile [facility] Start: 07-15-2029 Lipid panel Lipid Screening [facility] Start: 10-04-2027 Diabetes Screening Diabetes Screening [facility] Start: 07-15-2027 Diabetes Screening Diabetes Screening [facility] Start: 03-01-2027 Diabetes Screening Diabetes Screening [facility] Start: 02-22-2027 Diabetes Screening Diabetes Screening [facility] Start: 08-03-2026 Lipid 1996 panel - Serum or Plasma Lipid Screening [facility] Start: 08-03-2026 Lipid panel Lipid Screening [facility] Start: 08-03-2026 LIPID SCREEN LIPID SCREEN [facility] Start: 07-27-2026 Diabetes Screening Diabetes Screening [facility] Start: 10-28-2025 Annual PCP Team Chronic Disease Visit Annual PCP Team Chronic Disease Visit [facility] Start: 10-23-2025 Cologuard (FIT-DNA) Cologuard (FIT-DNA) [facility] Start: 10-23-2025 Colorectal Cancer Screening Colorectal Cancer Screening [facility] Start: 10-23-2025 Screening for malignant neoplasm of colon [facility] Start: 10-03-2025 Annual PCP Team Chronic Disease Visit Annual PCP Team Chronic Disease Visit [facility] Start: 09-20-2025 DIABETES SCREEN DIABETES SCREEN [facility] Start: 09-20-2025 Diabetes Screening Diabetes Screening [facility] Start: 08-29-2025 Annual PCP Team Chronic Disease Visit Annual PCP Team Chronic Disease Visit [facility] Start: 08-18-2025 End: 08-18-2025 Patient encounter procedure 08/18/2025 10:00 AM EST Office Visit [facility] [address] [place] [address] Paulette Cardona, [facility] [address] [place] [address] Brugada genetic testing [facility] Comment on above: Brugada genetic testing Start: 07-15-2025 Annual PCP Team Chronic Disease Visit Annual PCP Team Chronic Disease Visit [facility] Start: 05-21-2025 Screening for malignant neoplasm of breast Mammogram Screening [facility] Start: 05-19-2025 End: 05-19-2025 Patient encounter procedure 05/19/2025 1:40 PM EST Office Visit [facility] [address] [place] [address] [phone] Kevin Marvin MD [address] [address] 6 month f/u. eg [facility] Comment on above: 6 month f/u. eg Start: 03-10-2025 End: 03-10-2025 Patient encounter procedure 03/10/2025 2:30 PM EDT Office Visit Cardiology [address] [place] [address] Magda Ahumada MD [address] [facility], [address], [address] [place], [place] [id number] Ques. Brugada syndrome Cardiology Comment on above: Ques. Brugada syndrome Start: 03-01-2025 DIABETES SCREEN DIABETES SCREEN [facility] Start: 02-23-2025 Influenza vaccination Influenza Vaccine (Season Ended) [facility] Start: 12-23-2024 Annual PCP Team Chronic Disease Visit Annual PCP Team Chronic Disease Visit [facility] Start: 11-20-2024 End: 11-20-2024 Admission to same day surgery center 11/20/2024 12:28 PM EDT - 11/20/2024 1:55 PM EDT [facility] [address] [place] [address] Kevin Marvin MD [address] [facility] [address] [place] [address] INSERTION SUBCUTANEIOUS CARDIAC RHYTHM MONITOR,INCL PROGRAMMNG [facility] Comment on above: INSERTION SUBCUTANEIOUS CARDIAC RHYTHM M ONITOR,INCL PROGRAMMNG Start: 11-20-2024 End: 11-20-2024 Insertion subq cardiac rhythm monitor w/prgrmg INSERTION SUBCUTANEIOUS CARDIAC RHYTHM MONITOR,INCL PROGRAMMNG Brugada pattern on electrocardiogram 11/20/2024 12:28 PM EDT [facility] Start: 11-20-2024 Subsequent hospital visit by physician [facility] Comment on above: Brugada pattern on electrocardiogram [I4 9.8] Start: 11-17-2024 HPV TESTING HPV TESTING [facility] Start: 11-17-2024 PAP TESTING PAP TESTING [facility] Start: 11-17-2024 Screening for malignant neoplasm of cervix [facility] Start: 11-10-2024 Ercp remove calculi/debris biliary/pancreas duct ERCP REMOVE DUCT CALCULI [facility] Start: 11-10-2024 Ercp remove foreign body/stent biliary/panc duct ERCP REMOVE FORGN BODY DUCT [facility] Start: 11-10-2024 Ercp w/sphincterotomy/papillotomy ENDO CHOLANGIOPANCREATOGRAPH [facility] Start: 11-10-2024 Patient discharge [facility] Start: 11-07-2024 End: 11-07-2024 Patient encounter procedure [facility] Comment on above: eval for brugada syndrome. MS eval for brugada syn drome. [id number] Start: 11-07-2024 End: 11-07-2024 Patient encounter procedure 11/07/2024 9:30 AM EDT Office Visit Neurology [address] [place] [address] Chavez Carrera APRN.CORPORATE REPRESENTATIVE [address] [place] [address] Dx: Brugada pattern on electrocardiogram [I49.8]; Spell of abnormal behavior [R46.89]; Urinary incontinence, unspecified type [R32]; Convulsions, unspecified convulsion type (HCC) [R56.9] Neurology Comment on above: Dx: Brugada pattern on electrocardiogram [I49.8]; Spell of abnormal behavior [R46.89]; Urinary incontinence, unspecified type [R32]; Convulsions, unspecified convulsion type (HCC) [R56.9] Start: 11-04-2024 End: 11-04-2024 Patient encounter procedure 11/04/2024 8:00 AM EDT Office Visit Neurology [address] [place], [place] [phone] Shakira Ash PA-C [address] [place] [address] Dx: Brugada pattern on electrocardiogram [I49.8]; Spell of abnormal behavior [R46.89]; Urinary incontinence, unspecified type [R32]; Convulsions, unspecified convulsion type (HCC) [R56.9] Neurology Comment on above: Dx: Brugada pattern on electrocardiogram [I49.8]; Spell of abnormal behavior [R46.89]; Urinary incontinence, unspecified type [R32]; Convulsions, unspecified convulsion type (HCC) [R56.9] Start: 10-28-2024 End: 10-28-2024 Patient encounter procedure 10/28/2024 2:00 PM EDT Office Visit [facility] [address] [place], [place] [phone] Milton Cody MD [address] [place], [place] [phone] 4 week follow up [facility] Comment on above: 4 week follow up Start: 10-10-2024 End: 10-10-2024 Nursing evaluation of patient and report 10/10/2024 3:45 PM EDT Nurse Visit [facility] [address] [place], [place] [phone] Nurse, [place] [address] [place], [place] [phone] Place Zio Patch (pt has the zio patch) [facility] [place] Comment on above: Place Zio Patch (pt has the zio patch) Start: 10-09-2024 End: 10-09-2024 Patient encounter procedure 10/09/2024 2:00 PM EDT Office Visit Neurology [address] [place] [address] Dx: Spell of abnormal behavior [R46.89]; Urinary incontinence, unspecified type [R32]; Convulsions, unspecified convulsion type (HCC) [R56.9] Neurology Comment on above: Dx: Spell of abnormal behavior [R46.89]; Urinary incontinence, unspecified type [R32]; Convulsions, unspecified convulsion type (HCC) [R56.9] Start: 10-06-2024 End: 10-06-2024 Patient encounter procedure 10/06/2024 11:30 AM EDT Appointment Radiology [address] [place] [address] Dx: Convulsions, unspecified convulsion type (HCC) [R56.9] Radiology Comment on above: Dx: Convulsions, unspecified convulsion type (HCC) [R56.9] Start: 10-03-2024 End: 01-02-2025 Bacteria identified in Urine by Culture [facility] Comment on above: Expected: 10/03/2024, Expires: Start: 10-03-2024 End: 01-02-2025 CBC W Auto Differential panel - Blood [facility] Comment on above: Expected: 10/03/2024, Expires: Start: 10-03-2024 End: 01-02-2025 Comprehensive metabolic 2000 panel - Serum or Plasma [facility] Comment on above: Expected: 10/03/2024, Expires: Start: 10-03-2024 End: 01-02-2025 Thyrotropin [Units/volume] in Serum or Plasma [facility] Comment on above: Expected: 10/03/2024, Expires: Start: 10-03-2024 End: 01-02-2025 Urinalysis complete panel - Urine [facility] Comment on above: Expected: 10/03/2024, Expires: Start: 10-03-2024 End: 10-03-2024 Patient encounter procedure 10/03/2024 11:00 AM EDT Office Visit [facility] [address] [place] [address] Milton Cody MD [address] [place] [address] [facility] f/u dc'd 09/02/24 (DC summary scanned into Epic [facility] Comment on above: [facility] f/u dc'd 09/02/24 (DC summar y scanned into [employer] Start: 09-26-2024 Patient referral [facility] Work Phone: Start: 09-02-2024 Patient discharge [facility] Start: 09-01-2024 Application of ice collar, cap or bag [facility] Start: 08-30-2024 [facility] Start: 08-29-2024 Following clinical pathway protocol [facility] Start: 08-29-2024 Ambulation without limitation [facility] Start: 08-29-2024 Assessment of risk of venous thromboembolism [facility] Start: 08-29-2024 Care regimes management [facility] Start: 08-29-2024 Insertion of catheter into peripheral vein [facility] Start: 08-29-2024 Notification of physician [facility] Start: 08-29-2024 Providing care according to standard [facility] Start: 08-29-2024 Referral to gastroenterology service [facility] Start: 08-29-2024 Referral to general surgeon [facility] Start: 08-29-2024 End: 08-29-2024 [facility] Start: 08-29-2024 End: 08-29-2024 Endoscopic retrograde cholangiopancreatography [facility] Start: 08-29-2024 Fluoroscopic guidance O.R. Fluoro for C-Arm [facility] Start: 08-29-2024 Verification routine [facility] Start: 08-29-2024 Admission procedure [facility] Start: 08-29-2024 Hospital admission, emergency, from emergency room, medical nature [facility] Start: 08-29-2024 [facility] Start: 08-29-2024 End: 08-29-2024 [facility] Start: 08-29-2024 Bacteria identified in Blood by Culture Blood Culture [facility] Start: 08-29-2024 Bacteria identified in Urine by Culture Urine Culture [facility] Start: 08-11-2024 End: 08-11-2024 Patient encounter procedure 08/11/2024 1:50 PM EST Office Visit Cardiology [address] [place] [address] Tachycardia [R00.0] Cardiology Comment on above: Tachycardia [R00.0] Start: 08-03-2024 DIABETES SCREEN DIABETES SCREEN [facility] Start: 07-27-2024 Annual PCP Team Chronic Disease Visit Annual PCP Team Chronic Disease Visit [facility] Start: 07-22-2024 End: 07-22-2024 Nursing evaluation of patient and report 07/22/2024 11:30 AM EST Nurse Visit [facility] [address] [facility] [place] [address] Nurse, [place] [address] [place] [address] [address] Zio monitor [facility] Comment on above: Place Zio monitor Start: 07-15-2024 End: 10-14-2024 25-hydroxyvitamin D3 [Mass/volume] in Serum or Plasma [facility] Comment on above: Expected: 07/15/2024, Expires: Start: 07-15-2024 End: 10-14-2024 CBC W Auto Differential panel - Blood [facility] Work Phone: Comment on above: Expected: 07/15/2024, Expires: Start: 07-15-2024 End: 10-14-2024 Comprehensive metabolic 2000 panel - Serum or Plasma [facility] Comment on above: Expected: 07/15/2024, Expires: Start: 07-15-2024 End: 10-14-2024 Ferritin [Mass/volume] in Serum or Plasma [facility] Comment on above: Expected: 07/15/2024, Expires: Start: 07-15-2024 End: 10-14-2024 Iron and Iron binding capacity panel - Serum or Plasma [facility] Comment on above: Expected: 07/15/2024, Expires: Start: 07-15-2024 End: 10-14-2024 LIPID PANEL, NONFASTING [facility] Comment on above: Expected: 07/15/2024, Expires: Start: 07-15-2024 End: 10-14-2024 Thyrotropin [Units/volume] in Serum or Plasma [facility] Comment on above: Expected: 07/15/2024, Expires: Start: 07-15-2024 End: 10-14-2024 Thyroxine (T4) free [Mass/volume] in Serum or Plasma [facility] Comment on above: Expected: 07/15/2024, Expires: Start: 07-15-2024 End: 10-14-2024 Triiodothyronine (T3) [Mass/volume] in Serum or Plasma [facility] Comment on above: Expected: 07/15/2024, Expires: Start: 05-21-2024 End: 05-21-2024 Patient encounter procedure 05/21/2024 4:00 PM EST Appointment Mammogram [address] [place], [place] [address] Screen W Jae order pending Mammogram Comment on above: Screen W Jae order pending Start: 05-09-2024 Mammography Mammogram Screening [facility] Start: 05-09-2024 Screening for malignant neoplasm of breast Mammogram Screening [facility] Start: 02-24-2024 Influenza vaccination [facility] Start: 02-23-2024 End: 05-24-2024 Comprehensive metabolic 2000 panel - Serum or Plasma [facility] Comment on above: Expected: 02/23/2024, Expires: Start: 02-23-2024 End: 05-24-2024 Thyrotropin [Units/volume] in Serum or Plasma [facility] Work Phone: Comment on above: Expected: 02/23/2024, Expires: Start: 02-23-2024 End: 05-24-2024 Thyroxine (T4) free [Mass/volume] in Serum or Plasma [facility] Comment on above: Expected: 02/23/2024, Expires: Start: 02-23-2024 End: 05-24-2024 Triiodothyronine (T3) Free [Mass/volume] in Serum or Plasma [facility] Comment on above: Expected: 02/23/2024, Expires: Start: 01-01-2024 End: 01-01-2024 Patient encounter procedure 01/01/2024 3:30 PM EDT Appointment [facility] [address] [place] [address] Varicose veins of left lower extremity, unspecified whether complicated [I83.92] [facility] Comment on above: Varicose veins of left lower extremity, unspecified whether complicated [I83.92] Start: 12-24-2023 End: 12-24-2023 Patient encounter procedure 12/24/2023 6:20 PM EDT Office Visit [facility] [address] [place] [address] Milton Cody MD [address] [place] [address] left ankle pain and swollen getting worst [facility] Comment on above: left ankle pain and swollen getting wors t Start: 10-19-2023 ANNUAL PCP TEAM CHRONIC DISEASE VISIT ANNUAL PCP TEAM CHRONIC DISEASE VISIT [facility] Start: 10-19-2023 HEPATITIS B (1 of 3 - 3-dose series) HEPATITIS B (1 of 3 - 3-dose series) [facility] Comment on above: Postponed from 1973 (Declined at t his time) Start: 10-19-2023 Hepatitis B Vaccine (1 of 3 - 3-dose series) Hepatitis B Vaccine (1 of 3 - 3-dose series) [facility] Comment on above: Postponed from 1973 (Declined at t his time) Start: 10-19-2023 HEPATITIS C SCREENING HEPATITIS C SCREENING [facility] Comment on above: Postponed from 09/08/1991 (Declined at t his time) Start: 10-19-2023 Hepatitis C screening Hepatitis C Screening [facility] Comment on above: Postponed from 09/08/1991 (Declined at t his time) Start: 10-19-2023 HIV SCREENING HIV SCREENING [facility] Comment on above: Postponed from 09/08/1991 (Declined at t his time) Start: 10-19-2023 HIV screening HIV Screening [facility] Comment on above: Postponed from 09/08/1991 (Declined at t his time) Start: 09-21-2023 ANNUAL PCP TEAM CHRONIC DISEASE VISIT ANNUAL PCP TEAM CHRONIC DISEASE VISIT [facility] Start: 09-08-2023 Pneumococcal Vaccine: 50+ (1 of 1 - PCV) Pneumococcal Vaccine: 50+ (1 of 1 - PCV) [facility] Start: 09-08-2023 Shingrix Vaccine (1 of 2) Shingrix Vaccine (1 of 2) [facility] Start: 07-30-2023 End: 10-29-2023 25-hydroxyvitamin D3 [Mass/volume] in Serum or Plasma VITAMIN D 25 HYDROXY Lab Routine Segmental and somatic dysfunction Expected: 07/30/2023, Expires: 10/29/2023 [facility] Work Phone: Comment on above: Expected: 07/30/2023, Expires: Start: 07-30-2023 End: 10-29-2023 Estradiol (E2) [Mass/volume] in Serum or Plasma ESTRADIOL-17B BLD Lab Routine Hot flashes Expected: 07/30/2023, Expires: 10/29/2023 [facility] Work Phone: Comment on above: Expected: 07/30/2023, Expires: 4 Start: 07-30-2023 End: 10-29-2023 Ferritin [Mass/volume] in Serum or Plasma FERRITIN BLD Lab Routine Microcytosis Expected: 07/30/2023, Expires: 10/29/2023 [facility] Work Phone: Comment on above: Expected: 07/30/2023, Expires: 4 Start: 07-30-2023 End: 10-29-2023 Follitropin [Units/volume] in Serum or Plasma FSH BLD Lab Routine Hot flashes Expected: 07/30/2023, Expires: 10/29/2023 [facility] Work Phone: Comment on above: Expected: 07/30/2023, Expires: Start: 07-30-2023 End: 10-29-2023 Iron and Iron binding capacity panel - Serum or Plasma IRON + TIBC Lab Routine Microcytosis Expected: 07/30/2023, Expires: 10/29/2023 [facility] Work Phone: Comment on above: Expected: 07/30/2023, Expires: 4 Start: 07-27-2023 End: 07-27-2024 ION BY IFA SCREEN [facility] Work Phone: Comment on above: Expected: 07/27/2023, Expires: 5 Start: 07-27-2023 End: 07-27-2024 C reactive protein [Mass/volume] in Serum or Plasma [facility] Work Phone: Comment on above: Expected: 07/27/2023, Expires: 5 Start: 07-27-2023 End: 10-26-2023 Comprehensive metabolic 2000 panel - Serum or Plasma [facility] Work Phone: Comment on above: Expected: 07/27/2023, Expires: Start: 07-27-2023 End: 10-26-2023 Estradiol (E2) [Mass/volume] in Serum or Plasma [facility] Work Phone: Comment on above: Expected: 07/27/2023, Expires: 4 Start: 07-27-2023 End: 10-26-2023 Follitropin [Units/volume] in Serum or Plasma [facility] Work Phone: Comment on above: Expected: 07/27/2023, Expires: 4 Start: 07-27-2023 End: 10-26-2023 Hemoglobin A1c in Blood [facility] Work Phone: Comment on above: Expected: 07/27/2023, Expires: 4 Start: 07-27-2023 End: 10-26-2023 Lutropin [Units/volume] in Serum or Plasma [facility] Work Phone: Comment on above: Expected: 07/27/2023, Expires: 4 Start: 07-27-2023 End: 07-27-2024 Rheumatoid factor [Units/volume] in Serum or Plasma [facility] Work Phone: Comment on above: Expected: 07/27/2023, Expires: 5 Start: 07-27-2023 End: 10-26-2023 Thyrotropin [Units/volume] in Serum or Plasma [facility] Work Phone: Comment on above: Expected: 07/27/2023, Expires: Start: 07-27-2023 End: 10-26-2023 Thyroxine (T4) free [Mass/volume] in Serum or Plasma [facility] Work Phone: Comment on above: Expected: 07/27/2023, Expires: Start: 07-27-2023 End: 10-26-2023 Triiodothyronine (T3) Free [Mass/volume] in Serum or Plasma [facility] Work Phone: Comment on above: Expected: 07/27/2023, Expires: 4 Start: 06-25-2023 Behavioral Health Screening Behavioral Health Screening [facility] Start: 06-25-2023 Depression Assessment Depression Assessment [facility] Start: 02-23-2023 Influenza vaccination [facility] Start: 12-22-2022 Influenza vaccination INFLUENZA (#1) [facility] Comment on above: Postponed from 02/23/2022 (Declined at t his time) Start: 11-09-2022 Mammography [facility] Start: 09-20-2022 End: 11-20-2022 25-hydroxyvitamin D3 [Mass/volume] in Serum or Plasma [facility] Work Phone: Comment on above: Expected: 09/20/2022, Expires: 3 Start: 09-20-2022 End: 11-20-2022 CBC W Auto Differential panel - Blood [facility] Work Phone: Comment on above: Expected: 09/20/2022, Expires: 3 Start: 09-20-2022 End: 11-20-2022 Comprehensive metabolic 2000 panel - Serum or Plasma [facility] Work Phone: Comment on above: Expected: 09/20/2022, Expires: 3 Start: 09-20-2022 End: 11-20-2022 Estradiol (E2) [Mass/volume] in Serum or Plasma [facility] Work Phone: Comment on above: Expected: 09/20/2022, Expires: 3 Start: 09-20-2022 End: 11-20-2022 Follitropin [Units/volume] in Serum or Plasma [facility] Work Phone: Comment on above: Expected: 09/20/2022, Expires: 3 Start: 09-20-2022 End: 11-20-2022 Heterophile Ab [Presence] in Serum by Latex agglutination [facility] Work Phone: Comment on above: Expected: 09/20/2022, Expires: 3 Start: 09-20-2022 End: 11-20-2022 Lutropin [Units/volume] in Serum or Plasma [facility] Work Phone: Comment on above: Expected: 09/20/2022, Expires: 3 Start: 09-20-2022 End: 11-20-2022 Streptolysin O Ab [Units/volume] in Serum or Plasma [facility] Work Phone: Comment on above: Expected: 09/20/2022, Expires: 3 Start: 09-20-2022 End: 11-20-2022 T4/FTI/T4U [facility] Work Phone: Comment on above: Expected: 09/20/2022, Expires: 3 Start: 09-20-2022 End: 11-20-2022 Thyrotropin [Units/volume] in Serum or Plasma [facility] Work Phone: Comment on above: Expected: 09/20/2022, Expires: 3 Start: 09-20-2022 End: 11-20-2022 Triiodothyronine (T3) [Mass/volume] in Serum or Plasma [facility] Work Phone: Comment on above: Expected: 09/20/2022, Expires: 3 Start: 08-02-2022 COLORECTAL CANCER SCREENING COLORECTAL CANCER SCREENING [facility] Start: 08-02-2022 FECAL OCCULT BLOOD FECAL OCCULT BLOOD [facility] Start: 08-02-2022 Screening for malignant neoplasm of colon Fecal Occult Blood [facility] Start: 07-22-2022 ANNUAL PCP TEAM CHRONIC DISEASE VISIT ANNUAL PCP TEAM CHRONIC DISEASE VISIT [facility] Start: 06-25-2022 DEPRESSION ASSESSMENT DEPRESSION ASSESSMENT [facility] Start: 02-23-2022 Influenza vaccination [facility] Start: 09-10-2021 Adult depression screening assessment DEPRESSION SCREENING [facility] Start: 06-25-2021 DEPRESSION ASSESSMENT DEPRESSION ASSESSMENT [facility] Start: 12-20-2019 Urine microalbumin profile DTAP,TDAP,TD (2 - Td or Tdap) [facility] Start: 2018 COLOGUARD (FIT-DNA) COLOGUARD (FIT-DNA) [facility] Start: 2018 Colonoscopy COLONOSCOPY [facility] Start: [address] COLONOGRAPHY [facility] Start: 2018 Screening for malignant neoplasm of colon [facility] Start: 2018 SIGMOIDOSCOPY SIGMOIDOSCOPY [facility] Start: 1992 Hepatitis B Vaccine (1 of 3 - 19+ 3-dose series) Hepatitis B Vaccine (1 of 3 - 19+ 3-dose series) [facility] Start: 09-08-1991 Anxiety Screening Anxiety Screening [facility] Start: 09-08-1991 Depression Screening Depression Screening [facility] Start: 09-08-1991 HEPATITIS C SCREENING HEPATITIS C SCREENING [facility] Start: 09-08-1991 Hepatitis C screening Hepatitis C Screening [facility] Start: 09-08-1991 HIV SCREENING HIV SCREENING [facility] Start: 09-08-1991 HIV screening HIV Screening [facility] Start: 1978 COVID-19 VACCINE (#1) COVID-19 VACCINE (#1) [facility] Start: 03-10-1974 COVID-19 VACCINE (#1) COVID-19 VACCINE (#1) [facility] Start: 1973 HEPATITIS B (1 of 3 - 3-dose series) HEPATITIS B (1 of 3 - 3-dose series) [facility] COLOGUARD COLOGUARD Lab Ro utine Screening for colon cancer Ordered: 10/18/2022 [facility] Work Phone: Comment on above: Ordered: 10/18/2022 COVID & INFLUENZA A/ B & RSV PCR, ROUTINE COVID & INFLUENZA A/B & RSV PCR, ROUTINE Microbiology Routine URI, acute Ordered: 07/26/2024 [facility] Work Phone: Comment on above: Ordered: 07/26/2024 COVID & INFLUENZA A/ B & RSV PCR, ROUTINE COVID & INFLUENZA A/B & RSV PCR, ROUTINE Microbiology Routine Acute viral syndrome Ordered: 08/29/2024 [facility] Work Phone: Comment on above: Ordered: 08/29/2024 End: 06-13-2025 DBT Breast - bilateral screening KERRI SCREENING W [facility] Radiology Routine Encounter for screening mammogram for malignant neoplasm of breast 1 Occurrences starting 05/14/2024 until 06/13/2025 [facility] Work Phone: Comment on above: 1 Occurrences starting 05/14/2024 until 06/13/2025 DBT Breast - bilater al screening KERRI SCREENING W [facility] Radiology Routine Encounter for screening mammogram for malignant neoplasm of breast 05/21/2024 4:20 PM EST [facility] Work Phone: End: 12-10-2022 Diagnostic mammography computer-aided detcj uni KERRI DIAGNOSTIC LT Radiology Routine Abnormal mammogram 1 Occurrences starting 11/10/2021 until 12/10/2022 [facility] Work Phone: Comment on above: 1 Occurrences starting 11/10/2021 until 12/10/2022 ECG B/O W INTERP (MED OFFICE) EC G B/O W INTERP (MED OFFICE) ECG Routine Ordered: 11/07/2024 [facility] Work Phone: Comment on above: Ordered: 11/07/2024 ECG COMPLETE [facility] Comment on above: Ordered: 07/15/2024 ECG COMPLETE ECG COMPLETE ECG Routine Brugada pattern on electrocardiogram Palpitations Tachycardia Family history of cardiac disorder Ordered: 10/03/2024 [facility] Comment on above: Ordered: 10/03/2024 End: 10-03-2025 EPIL EEG ROUTINE EPIL EEG ROUTINE NEUROLOGY Routine Spell of abnormal behavior Urinary incontinence, unspecified type Convulsions, unspecified convulsion type (HCC) 1 Occurrences starting 10/03/2024 until 10/03/2025 [facility] Comment on above: 1 Occurrences starting 10/03/2024 until 10/03/2025 Insertion subq cardi ac rhythm monitor w/prgrmg INSERTION SUBCUTANEIOUS CARDIAC RHYTHM MONITOR,INCL PROGRAMMNG Brugada pattern on electrocardiogram [facility] End: 05-24-2024 KERRI SCREENING KERRI SCREENING Radiology Routine Encounter for screening mammogram for breast cancer 1 Occurrences starting 04/25/2023 until 05/24/2024 [facility] Work Phone: Comment on above: 1 Occurrences starting 04/25/2023 until 05/24/2024 End: 06-21-2023 KERRI SCREENING W JAE KERRI SCREENING W JAE Radiology Routine Encounter for screening mammogram for malignant neoplasm of breast 1 Occurrences starting 05/22/2022 until 06/21/2023 [facility] Work Phone: Comment on above: 1 Occurrences starting 05/22/2022 until 06/21/2023 KERRI SCREENING W JAE KERRI SCREENI NG W JAE Radiology Routine Encounter for screening mammogram for malignant neoplasm of breast 05/09/2023 3:10 PM EST [facility] Work Phone: End: 11-02-2025 MR Brain WO and W contrast IV MRI BRAIN WO/W IVCON Radiology Routine Convulsions, unspecified convulsion type (HCC) 1 Occurrences starting 10/03/2024 until 11/02/2025 [facility] Comment on above: 1 Occurrences starting 10/03/2024 until 11/02/2025 OUTSIDE VENDOR CARDI AC OUTPATIENT EXTENDED RHYTHM RECORDING (WITHOUT TELEMETRY) OUTSIDE VENDOR CARDIAC OUTPATIENT EXTENDED RHYTHM RECORDING (WITHOUT TELEMETRY) Holter Routine Tachycardia Ordered: 07/16/2024 [facility] Work Phone: Comment on above: Ordered: 07/16/2024 OUTSIDE VENDOR CARDI AC OUTPATIENT EXTENDED RHYTHM RECORDING (WITHOUT TELEMETRY) OUTSIDE VENDOR CARDIAC OUTPATIENT EXTENDED RHYTHM RECORDING (WITHOUT TELEMETRY) Holter Routine Brugada pattern on electrocardiogram Palpitations Tachycardia Family history of cardiac disorder Ordered: 10/03/2024 [facility] Work Phone: Comment on above: Ordered: 10/03/2024 Patient referral [facility] Work Phone: End: 07-15-2025 STRESS ECHO TREADMILL STRESS ECHO TREADMILL Cardiology Routine Tachycardia Chest pressure 1 Occurrences starting 07/15/2024 until 07/15/2025 [facility] Comment on above: 1 Occurrences starting 07/15/2024 until 07/15/2025 Urine culture [facility] End: 12-10-2022 Us breast uni real time with image limited US BREAST LTD LT Radiology Routine Abnormal mammogram 1 Occurrences starting 11/10/2021 until 12/10/2022 [facility] Work Phone: Comment on above: 1 Occurrences starting 11/10/2021 until 12/10/2022 End: 12-23-2024 US Lower extremity vein US LEG VEIN DVT UNL [facility] Varicose veins of left lower extremity, unspecified whether complicated 1 Occurrences starting 12/24/2023 until 12/23/2024 [facility] Comment on above: 1 Occurrences starting 12/24/2023 until 12/23/2024 US Lower extremity vein US LEG V EIN DVT UNL [facility]AS [facility] Varicose veins of left lower extremity, unspecified whether complicated 01/01/2024 3:23 PM EDT [facility] Work Phone: End: 01-22-2025 XR Ankle - left AP and Lateral and oblique XR ANKLE GENERAL 3V AP/LAT/OBL LEFT Radiology Routine Chronic pain of left ankle 1 Occurrences starting 12/24/2023 until 01/22/2025 [facility] Work Phone: Comment on above: 1 Occurrences starting 12/24/2023 until 01/22/2025 XR Ankle - left AP a nd Lateral and oblique XR ANKLE GENERAL 3V AP/LAT/OBL LEFT Radiology Routine Chronic pain of left ankle 12/24/2023 7:30 PM EDT [facility] Immunizations Immunization Date Immunization Notes Care Provider Fa august 10-18-2022 tetanus toxoid, redu meera diphtheria toxoid, and acellular pertussis vaccine, adsorbed Milton Cody MD Work Phone: [facility] 05-04-2016 influenza virus vaccine, unspecified formulation Milton Cody MD Work Phone: [facility] 12-19-2009 tetanus toxoid, redu meera diphtheria toxoid, and acellular pertussis vaccine, adsorbed Screen Wstr [facility] Work Phone: Payers Date Payer Category Payer Self-pay [id number] 2022 Unknown [id number] 2019 Medicaid [place] [employer] [employer] [id number] 2019-Present [phone] [place] [address] Medicaid [id number] 2019 Medicaid [id number] Private Health Insurance [id number] Unknown SELF PAY INSURANCE [id number] Unknown [id number] 2..840.1.179728.3.579.2. 462 Unknown [id number] .16.840.1.742462.3.579.2. 462 Unknown [id number] 2.16.840.1.243185.3.579.2. 462 Unknown [id number] 2.16.840.1.294232.3.579.2. 462 Unknown [id number] 2.16.840.1.527755.3.579.2. 462 Unknown [id number] 2.16.840.1.133262.3.579.2. 462 Unknown [id number] 2.16.840.1.855226.3.579.2. 462 Unknown [id number] 2.16.840.1.211180.3.579.2. 462 Unknown [id number] 2.16.840.1.359332.3.579.2. 462 Unknown [id number] 2.16.840.1.121829.3.579.2. 462 Unknown [id number] 2.16.840.1.187211.3.579.2. 462 Unknown [id number] 2.16.840.1.942114.3.579.2. 462 Unknown [id number] 2.16.840.1.022172.3.579.2. 462 Unknown [id number] 2.16.840.1.064442.3.579.2. 462 Unknown [id number] 2.16.840.1.404160.3.579.2. 462 Unknown [id number] 2.16.840.1.190163.3.579.2. 462 Unknown [id number] 2.16.840.1.506070.3.579.2. 462 Unknown [id number] 2.16.840.1.150608.3.579.2. 462 Unknown [id number] 2.16.840.1.102052.3.579.2. 462 Unknown [id number] 2.16.840.1.350660.3.579.2. 462 Social History Date Type Detail Facility Start: 02-13-2011 End: 11-06-2024 Tobacco smoking status NHIS Never smoked tobacco [facility] Start: 08-10-2021 End: 11-07-2024 Alcohol intake Current non-drinker of alcohol (finding) [facility] Start: 1975 Sex Assigned At Not on file C [facility] Start: 10-30-2021 End: 11-09-2021 Exposure to SARS-CoV-2 (event) Not sure [facility] Start: 05-26-2021 Tobacco smoking stat us TXIS Unknown if ever smoked [facility] Work Phone: Start: 1975 Sex Assigned At Female W [facility] Start: 02-13-2011 End: 07-25-2022 Tobacco use and exposure Smokeless tobacco non-user [facility] Start: 10-18-2022 End: 05-09-2023 History of Social function [facility] Work Phone: Start: 10-18-2022 End: 05-09-2023 Tobacco use panel [facility] Work Phone: Adult Depression Screening Assessment 1 [facility] Work Phone: Start: 08-29-2024 End: 09-22-2024 Sex Female (finding) [facility] NEGATED: Highlighted row Not [facility] Medical Equipment Procedure Code Equipment Code Equipment Origin al Text Equipment Identifier Dates Total cholecystectomy with exploration of common bile duct Plant polysaccharide haemostatic agent, bioabsorbable [id number] 100ASE FDA Start: 08-31-2024 ERCP (endoscopic retrograde cholangiopancreatograp hy) STENT,RX PLASTIC BILIARY 10X7 FDA Start: 08-29-2024 ERCP (endoscopic retrograde cholangiopancreatograp hy) STENT,RX PLASTIC BILIARY 10X7 FDA Start: 08-29-2024 ERCP (endoscopic retrograde cholangiopancreatograp hy) STENT,RX PLASTIC BILIARY 10X7 FDA Start: 08-29-2024 ERCP (endoscopic retrograde cholangiopancreatograp hy) STENT,RX PLASTIC BILIARY 10X7 FDA Start: 08-29-2024 Goals Date Patient Goal Desired Activity /State Personal health goal Functional Status Date Assessment Result Facility 09-02-2024 Functional status Chair [facility] Work Phone: 09-14-2015 Are you deaf, or do you have serious difficulty hearing No 09/14/2015 5:05 PM Marc Chambers III, MD No [facility] 09-14-2015 Are you blind, or do you have serious difficulty seeing, even when wearing glasses No 09/14/2015 5:05 PM Marc Chambers III, MD No [facility] 09-14-2015 Do you have serious difficulty walking or climbing stairs No 09/14/2015 5:05 PM Marc Chambers III, MD No [facility] 09-14-2015 Do you have difficul ty dressing or bathing No 09/14/2015 5:05 PM Marc Chambers III, MD [facility] 09-14-2015 Because of a physica l, mental, or emotional condition, do you have difficulty doing errands alone such as visiting a physician's office or shopping No 09/14/2015 5:05 PM Marc Chambers III, MD [facility] Mental Status Date Assessment Result Facility 11-10-2024 Cognitive function Level Of Cons ciousness Follows Commands;Drowsy [facility] Work Phone: 11-10-2024 Cognitive function Arousable To Voice/Nam e [facility] Work Phone: 09-02-2024 Cognitive function Voice/Name [facility] Work Phone: 08-29-2024 Cognitive function Level Of Cons ciousness Awake;Alert;Appropriate;Fol lows Commands [facility] Work Phone: 09-14-2015 Because of a physica l, mental, or emotional condition, do you have serious difficulty concentrating, remembering, or making decisions No 09/14/2015 5:05 PM Marc Chambers III, MD [facility] Clinical Notes 02-21-2016 to 11-19-2024 Telephone Encounter - [place] Mahesh Montes - 11/19/2024 8:11 AM EDTTelephone Encounter - [place] Mahesh Montes - 11/19/2024 8:11 AM EDTTelephone Encounter - Kevin Marvin MD - 11/10/2024 3:27 PM EDT Note Date & Type Note Facility 11-19-2024 Telephone encounter Note Welcome to the [facility]. The Cardiac Device Clinic assists in managing your implantable cardiac device. All information obtained from your device will be sent to your Road Crew Member and/or Chef & Owner for review. Your doctors will use this information to manage your health care. At the [facility], we strive to offer you the most technologically advanced ways to manage your device follow ups. Our goal is to make your device follow up minimally disruptive to your lifestyle, while maintaining the highest level of care. Your device reports are AUTOMATICALLY sent every 30 days by your home monitor. Keep your home monitor plugged in and near where you sleep. For questions about your device reports, contact the Device Clinic at . You will have a follow up appointment and a wound check to be done at your doctor's office. Please contact Dr Marvin's office at [phone] to schedule this appointment. It is important that you notify us of any changes to your phone number, mailing address, or if you want to transfer your device care to another clinic/facility. We are here to support your device care. Please contact us with any concerns or questions. Sincerely, The [facility] Cardiac Device [facility] Team [facility] 11-19-2024 Miscellaneous Notes Welcome to the [facility] Device [facility]. The Cardiac Device Clinic assists in managing your implantable cardiac device. All information obtained from your device will be sent to your Road Crew Member and/or Chef & Owner for review. Your doctors will use this information to manage your health care. At the [facility] Device [facility], we strive to offer you the most technologically advanced ways to manage your device follow ups. Our goal is to make your device follow up minimally disruptive to your lifestyle, while maintaining the highest level of care. Your device reports are AUTOMATICALLY sent every 30 days by your home monitor. Keep your home monitor plugged in and near where you sleep. For questions about your device reports, contact the Device Clinic at . You will have a follow up appointment and a wound check to be done at your doctor's office. Please contact Dr Marvin's office at [phone] to schedule this appointment. It is important that you notify us of any changes to your phone number, mailing address, or if you want to transfer your device care to another clinic/facility. We are here to support your device care. Please contact us with any concerns or questions. Sincerely, The [facility] Team documented in this encounter [facility] 11-10-2024 Telephone encounter Note She has information in AVS, what we discussed. We can give her more info when she comes for the ILR procedure. [facility] Work Phone: 11-10-2024 Miscellaneous Notes She has information in AVS, what we discussed. We can give her more info when she comes for the ILR procedure. documented in this encounter [facility] 11-10-2024 Consult note Note Date/Time November 10, 2024 12:10pm [facility] Medical Records Department [address] [place] [address] Pre-Anesthesia Evaluation 11/10/24 1158 MR#: [id number] Acct: [id number] Name: GALILEA GLASS Rep #:[id number] : 1975 49 From: Ruy Gallagher MD PCP: Dr. Milton Cody MD Status:REG S DC Y Race: C Location: [place] [address]- ASA Classification* ASA Classification ASA Classification: 3 Assessment & Plan Anesthesia* Anesthesia Assessment Anesthesia Assessment: Discussed sedation and/or anesthesia options, risks, benefits, and alternatives with patient/parents/legal guardian/POA. Questions invited. The patient/parents/legal guardian/POA seems to understand and agrees to proceedwith anesthesia plan. Reviewed the physical assessment, medical history, allergy history and patient home medications list prior to surgery/procedure/anesthetic and documented any changes. Performed airway and anesthesia risk assessments. Anesthesia Type Anesthesia Type: MAC (Avoid bupivicaine, procaine, propofol due to Brugada type !.avoid dehydration.) Anesthesia Focused Assessment* Temperature: 97.8 F Pulse Rate: 72 Blood Pressure: 122/82 Respiratory Rate: 16 Pulse Ox: 100 Airway Assessment Mouth opens: >3 cm Mallampati Score: II Focused Labs Anesthesia Preop lab: CBC WBC 5.7 K/mm3 (4.4-11.0) 09/02/24 05:49 09/02/24 RBC 3.93 M/mm3 (4.2-5.4) L 09/02/24 05:49 09/02/24 Hgb 10.8 g/dL (12.0-15.0) L 09/02/24 05:49 5 Hct 32.1 % (37-47) L 09/02/24 05:49 09/02/24 Plt Count 202 K/mm3 (150-450) 09/02/24 05:49 09/02/24 CHEMISTRY Potassium 3.6 mmol/L (3.3-5.1) 09/02/24 05:49 09/02/24 Sodium 137 mmol/L (133-145) 09/02/24 05:49 09/02/24 Magnesium 2.0 mg/dL (1.5-2.2) 08/31/24 07:30 08/31/24 Phosphorus 2.0 mg/dL (2.7-4.5) L 08/31/24 07:30 08/31/24 BUN 6 mg/dL (4-19) 09/02/24 05:49 09/02/24 Creatinine 0.46 mg/dL (0.70-1.20) L 09/02/24 05:49 Glucose 93 mg/dL (70-99) 09/02/24 05:49 09/02/24 POC Glucose 108 mg/dL (74-106) H 08/30/24 06:31 08/30/24 TSH 0.14 uIU/mL (0.358-3.74) L 09/01/19 12:06 03/0 03/14 COAG PT 13.5 SECONDS (11.7-14.9) 08/29/24 15:11 Urine Test Negative Negative 11/10/24 11:37 11/10/24 Pre-Assessment Diagnosis/Proposed Procedure Planned Operative Procedure(s): ERCP-STENT REMOVAL Anesthesia History Anesthesia History - piece cutter: Anesthesia History - piece cutter Hx Hospitalization Yes: 08/202411/06/24 15:18 Any Problems With Anesthesia No 11/06/24 15:18 Cholinesterase deficiency No 11/06/24 15:18 You/Your Family Experience No 11/06/24 15:18 fever (hyperthermia) with Relationship Recent Exposure to Contagious No 11/10/24 11:44 Disease Does patient have nerve No 11/06/24 15:18 stimulator Patient instructed to have device shut off --Does patient have Pacemaker No 11/10/24 11:44 or ICD? When Was Last Pacemaker Check QUESTION #4 FULL TEXT: You/Your Family Experience fever (hyperthermia) with Anesthesia Last Oral Intake Last Oral intake: Last Oral Intake NPO since 22:00 11/10/24 11:44 Meds taken in AM with sips of Yes 11/10/24 11:44 water? Meds patient instructed to take am of surgery PONV PONV - piece cutter: PONV - piece cutter Female Yes 11/06/24 15:18 HX of Motion Sickness Yes 11/06/24 15:18 HX of N/V After Surgery No 11/06/24 15:18 Non-Smoker Yes 11/06/24 15:18 Duration of Surgery greater No 11/06/24 15:18 than 60 minutes Number of Risk Factors 3 11/06/24 15:18 PONV Score Moderate Risk 11/06/24 15:18 Height & Weight Height & Weight: Anesthesia: Height & Weight Height 5 ft 2 in 11/10/24 11:44 Weight: 89 kg 11/10/24 11:44 Body Mass Index (BMI) 35.9 11/10/24 11:44 Respiratory Assessment Respiratory Assessment - piece cutter: Respiratory Tract Infection Hx - piece cutter Hx Respiratory Tract Infection No 11/06/24 15:18 STOP Sleep Apnea STOP Sleep Apnea - piece cutter: STOP Sleep Apnea - piece cutter Hx Hypertension No 11/06/24 15:18 Hx Sleep Apnea No 11/06/24 15:18 CPAP BIPAP Do you snore loudly (louder No 11/06/24 15:18 than talking or can be heard Do you often feel tired/ No 11/06/24 15:18 fatigued/ sleepy during daytime? Has anyone observed you stop No 11/06/24 15:18 breathing during sleep? STOP Results Negative 11/06/24 15:18 QUESTION #5 FULL TEXT : Do you snore loudly (louder than talking or can be heard through closed doors)? Tobacco Use History Tobacco Use History - piece cutter: Tobacco Use History - piece cutter Tobacco Use Smoking Status Never smoker 11/06/24 15:18 Hx Tobacco Use No 11/06/24 15:18 Years Smoking Packs Smoked per Day Smoking Cessation Date was within the last 15 years Hx Smoking Cessation Date Hx Smoking Cessation Counseling Hematologic Medial History Hematologic Hx - piece cutter: Hematologic Medical Hx - lifestyle consultant Hx of Blood Transfusion No 11/06/24 15:18 Hx of Transfusion in last 3 No 11/06/24 15:18 Months Date of Last Transfusion (if within last 3 months) Ever experience any problems No 11/06/24 15:18 with transfusion(s)? Specify any problems Hx of Preganancy in last 3 No 11/06/24 15:18 Months [facility] 11/06[facility] 15:18 & Questions: Date: 11/06/24 11/06/24 15:18 Time: 15:21 11/06/24 15:18 Patient unable to answer at this time (ie. confused, unrespo /Reproduction History /Reproductive History - piece cutter: /Reproductive Hx- piece cutter Hx Now No 11/06/24 15:18 Gestational Age (in weeks): EDC: Hx Hx Para Hx Section SAB No 11/06/24 15:18 Active Medications Active Medications: Current Medications Generic Name Dose Route Start Last Admin Trade Name Freq PRN Reason Stop Dose Admin Lactated Ringer's 1,000 mls @ 15 mls/hr 11/10/24 11:30 11/10/24 11:53 IV 15 mls/hr .Q48H CAROLEE Administration PFSH Medical History Wears contact lenses Wears glasses Thyroid disease Anemia Seizures Non-smoker History of stress test History of Holter monitoring Cardiology follow-up encounter PCOS (polycystic ovarian syndrome) Migraine headache Home Medications ?Medication ?Instructions ?Recorded ?Last Taken ?Type thyroid (pork) 60 mg tablet 60 mg PO DAILY 08/23/20 History ([place] Thyroid) levothyroxine 25 mcg tablet 25 mcg PO SUTUWETHSA 08/2911/10/24 History Allergy/AdvReac Type Severity Reaction Status Date / Time Penicillins Allergy Intermediate Hives Verified 11/10/24 11:43 chlorhexidine Allergy Mild Rash Verified 11/10/24 11:43 Family History Other Cancer Diabetes Heart disease Hypertension Surgical History S/P cholecystectomy History of lobectomy of thyroid Social History household members: spouse housing: house Smoking Status: Never smoker Review of Systems (Anesthesia) ROS Narrative System reviewed and no additional complaints, except as documented. 11/10/24 1210 <Electronically signed by Ruy Gallagher MD > Date _ Ruy Gallagher MD Cosigner Signature: Date CC: ~ Signed [facility] Work Phone: 1(159) 981-797705-19-2025 History and physical note Author Paolo Waller [facility] Note Date/Time November 10, 2024 12:01 pm [facility] Medical Records Department [address] [place] [address] History & Physical Exam 11/10/24 1154 MR#: [id number] Acct: [id number] Name: GALILEA GLASS Rep #:[id number] : 1975 49 From: Paolo Waller DO PCP: Dr. Milton Cody MD Status:REG S DC Location: [place] [address] HPI - General General Date of Admission: 11/10/24 HPI Narrative tre SMITH a 49 F who presented to [facility] ED on 08/29/2024 with abdominal pain with nausea, fever/chills and URI symptoms. She was diagnosed with acute cholangitis secondary to choledocholithiasis. CT abdomen pelvis and gallbladder ultrasound on admit showed distended gallbladder with multiple calculi and dilated common bile duct. LFTs with T. bili 4.4, direct bili 2.9, AST 250, ALT 628, alk phos 266. Fevers present on admission. S/p ERCP on 08/29 with stone extraction and common bile duct stenting. S/p laparoscopic cholecystectomy on 08/31. Patient tolerated both procedures well. Labs improved postoperatively. Treated with IV antibiotics here and discharged on p.o. Levaquin to complete 10-day course of antibiotics total, stop date 09/08. She comes in for repeat ERCP with stent removal. [facility] Medical History Wears contact lenses Wears glasses Thyroid disease Anemia Seizures Non-smoker History of stress test History of Holter monitoring Cardiology follow-up encounter PCOS (polycystic ovarian syndrome) Migraine headache Home Medications ?Medication ?Instructions ?Recorded ?Last Taken ?Type thyroid (pork) 60 mg tablet 60 mg PO DAILY 08/23/20 History ([place] Thyroid) levothyroxine 25 mcg tablet 25 mcg PO SUTUWETHSA 08/2911/10/24 History Allergy/AdvReac Type Severity Reaction Status Date / Time Penicillins Allergy Intermediate Hives Verified 11/10/24 11:43 chlorhexidine Allergy Mild Rash Verified 11/10/24 11:43 Family History Other Cancer Diabetes Heart disease Hypertension Surgical History S/P cholecystectomy History of lobectomy of thyroid Social History household members: spouse housing: house Smoking Status: Never smoker Vital Signs Vital Signs Vital Signs: 11/10/24 11:44 11/10/24 11:44 Temperature 97.8 F Temperature Source Temporal Pulse Rate 72 Respiratory Rate 16 Respiratory Pattern Normal Blood Pressure 122/82 H Blood Pressure Mean 95 Blood Pressure Source Monitor Blood Pressure Position Semi-Fowlers Blood Pressure Location Left Arm Pulse Ox 100 Oxygen Delivery Method Room Air Weight Weight: 196 lb 3.382 oz Body Mass Index (BMI) 35.9 Physical Exam Const alert, oriented x3, no apparent distress and healthy appearing General Appearance: cooperative GI normal to inspection, nondistended, normoactive bowel sounds, soft to palpation,non-tender and non-distended Percussion: normal to percussion Rectal Exam: deferred Results Lab / Micro Data Labs: Laboratory Results - last 24 hr 11/10/24 11:37: Urine Test Negative Assessment & Plan Assessment/Plan (1) Ascending cholangitis: PLAN: She will undergo ERCP with stent removal or exchange. She was explained alternatives, risk, benefits including almost any bleeding, infection, sepsis, perforation, need for emergent urgent . She will have an ASA of 3. 11/10/24 1201 <Electronically signed by Paolo Waller DO> Cosigner Signature (if applicable): CC: Dr. Milton Cody MD; Paolo Waller DO~ Signed [facility] Work Phone: 1(450) 241-163405-19-2025 Radiology Diagnostic study note [facility] Imaging Services [address] [place], [place] [address] ERCP Biliary/Pancreas MR#: [id number] Acct: [id number] Name: GALILEA GLASS Rep #: [id number] : 1975 F 49 From: Jamaal Higgins MD PCP: Dr. Milton Cody MD Status: REG S DC Study:ERCP Biliary/Pancreas Date of Exam: 11/10/24 Exam# [id number] Ordering Dr: Raffi Waller DO PROCEDURE: ERCP BILIARY/PANCREAS 11/10/2024 REASON FOR EXAM: ERCP TECHNIQUE: Fluoroscopic services provided for the lamination machine operator for ERCP. COMPARISON: Prior cholangiogram dated August 31, 2024. FINDINGS: Fluoroscopic services provided. 54.1 seconds of fluoroscopy. 12.74 mGy. 9 images were submitted. RAD/ERCP Biliary/Pancreas IMPRESSION: Intraoperative fluoroscopic services provided for ERCP. Reading Location: [facility] CC: Dr. Milton Cody MD; Paolo Waller DO ~ Lunchroom Mother: Signed [facility]05-19-2025 Consult note [facility] Medical Records Department [address] [place] [address] Anesthesia Postop Eval II 11/10/24 1321 MR#: [id number] Acct: [id number] Name: GALILEA GLASS Rep #:[id number] : 1975 49 From: Ruy Gallagher MD PCP: Dr. Milton Cody MD Status:REG S DC Y Race: C Location: [place] [address] Anesthesia Postop Eval I Sum Postop Eval Completion status Anesthesia document: Postop Eval 1 completed: Yes Anesthesia Postop Eval I Summary Anesthesia Postop Eval I Summary: Anesthesia Postop Eval I: Assessment Summary Airway patent Yes 11/10/24 13:19 GENERATION [email or web address].[email or web address] Spontaneous unlabored Yes 11/10/24 13:19 GENERATION [email or web address].SOBR respirations Mental status Awake,Calm 11/10/24 13:19 GENERATION TECHNICIAN.SOBR nausea No 11/10/24 13:19 GENERATION TECHNICIAN.SOBR Vomiting No 11/10/24 13:19 GENERATION TECHNICIAN.SOBR Anesthesia Postop Eval I: Fluid Summary Crystalloid volume administer 500 11/10/24 13:19 GENERATION TECHNICIAN.SOBR (ml) Colloids volume administered ( ml) Blood Product volume administered (ml) Total IV fluid infused 500 11/10/24 13:19 GENERATION TECHNICIAN.SOBR Anesthesia Postop Eval I: Summary Notes Anesthesia Complication No 11/10/24 13:19 GENERATION [email or web address].SOBR Anesthesia Complication Comment: Post-operative progress note Anesthesia: Postop Eval II Evaluation Mental status: Awake Pain Level: 0 nausea: No Vomiting: No 11/10/24 1321 > Date _ Ruy Ramirez Signature: Date CC: ~ Signed [facility]05-19-2025 Procedure note [facility] Medical Records Department [address] [place] [address] ERCP Report MR#: [id number] Acct: [id number] Name: GALILEA GLASS Rep #:[id number] : 1975 49 From: Paolo Waller DO PCP: Dr. Milton Cody MD Status:REG S DC Patient Name: Galilea Glass Procedure Date: 11/10/2024 12:29 PM Date of : 1975 Age: 49 Procedure: ERCP Indications: Abdominal pain of suspected biliary origin, Jaundice, Elevated liver enzymes, Stent removal, Biliary stent removal Providers: Paolo Waller DO Referring MD: Milton Cody Medicines: General Anesthesia Patient Profile: This is a 49 year old female. Refer to note in patient chart for documentation of history and physical. Patient has symptoms of acute right upper quadrant abdominal pain and acute dyspepsia. Complications: No immediate complications. Procedure: Pre-Anesthesia Assessment: - Prior to the procedure, a History and Physical was performed, and patient medications and allergies were reviewed. The patient is competent. The risks and benefits of the procedure and the sedation options and risks were discussed with the patient. All questions were answered and informed consent was obtained. Patient identification and proposed procedure were verified by the physician in the pre-procedure area. Mental Status Examination: alert and oriented. Airway Examination: normal oropharyngeal airway and neck mobility. Respiratory Examination: clear to auscultation. CV Examination: normal. Prophylactic Antibiotics: The patient does not require prophylactic antibiotics. Prior Anticoagulants: The patient has taken no anticoagulant or antiplatelet agents except for NSAID medication. ASA Grade Assessment: II - A patient with mild systemic disease. After reviewing the risks and benefits, the patient was deemed in satisfactory condition to undergo the procedure. The anesthesia plan was to use minimal sedation / analgesia (anxiolysis). Immediately prior to administration of medications, the patient was re-assessed for adequacy to receive sedatives. The heart rate, respiratory rate, oxygen saturations, blood pressure, adequacy of pulmonary ventilation, and response to care were monitored throughout the procedure. The physical status of the patient was re-assessed after the procedure. After obtaining informed consent, the scope was passed under direct vision. Throughout the procedure, the patient's blood pressure, pulse, and oxygen saturations were monitored continuously. The Duodenoscope was introduced through the mouth, and advanced to the duodenum and used to inject contrast into the bile duct and ventral pancreatic duct. The ERCP was accomplished without difficulty. The patient tolerated the procedure well. Scope In: 12:56:35 PM Scope Out: 1:04:45 PM Total Procedure Duration Time 0 hours 8 minutes 10 seconds Findings: The journeyman operator assistant film was normal. The esophagus was successfully intubated under direct vision. The scope was advanced to a normal major papilla in the descending duodenum without detailed examination of the pharynx, larynx and associated structures, and upper GI tract. The upper GI tract was grossly normal. The bile duct was deeply cannulated with the short-nosed traction sphincterotome. Contrast was injected. I personally interpreted the bile duct images. There was brisk flow of contrast through the ducts. Image quality was excellent. Contrast extended to the entire biliary tree. A long 0.021 inch Jagwire was passed into the biliary tree. A 5 mm biliary sphincterotomy was made with a braided traction (standard) sphincterotome using ERBE electrocautery. There was no post-sphincterotomy bleeding. To discover objects, the biliary tree was swept with a 12 mm balloon starting at the upper third of the main bile duct, middle third of the main bile duct, lower third of the main duct, cystic duct, left intrahepatic duct(s), left main hepatic duct, right intrahepatic duct(s) and right main hepatic duct. Sludge was swept from the duct. All stones were removed. One stent was removed from the biliary tree using a snare and sent for cytology. The stent was found to be occluded via the water column test. Impression: - Choledocholithiasis was found. Complete removal was accomplished by biliary sphincterotomy and balloon extraction. - A biliary sphincterotomy was performed. - The biliary tree was swept. - One stent was removed from the biliary tree. Procedure Code(s): --- Professional --- 88040, Endoscopic retrograde cholangiopancreatography (ERCP); with removal of foreign body(s) or stent(s) from biliary/pancreatic duct(s) 18016, Endoscopic retrograde cholangiopancreatography (ERCP); with removal of calculi/debris from biliary/pancreatic duct(s) 19040, Endoscopic retrograde cholangiopancreatography (ERCP); with sphincterotomy/papillotomy 09033, 26, Endoscopic catheterization of the biliary ductal system, radiological supervision and interpretation CPT copyright 2021 [employer]. All rights reserved. The codes documented in this report are preliminary and upon photo lab technician review may be revised to meet current compliance requirements. Paolo Waller DO 11/10/2024 1:21:06 PM This report has been signed electronically. Number of Addenda: 0 Note Initiated On: 11/10/2024 12:29 PM 11/10/24 1321 Date _ Paolo Waller DO Cosigner Signature: Date (if indicated) CC: Dr. Milton Cody MD; Paolo Waller DO ~ Date Dictated: 11/10/24 1229 Date Transcribed: Lunchroom Mother: RF Signed [facility]05-19-2025 Procedure note [facility] Medical Records Department [address] [place] [address] Operative Report - CC Letter MR#: [id number] Acct: [id number] Name: GALILEA GLASS Rep #:[id number] : 1975 49 From: Paolo Waller DO PCP: Dr. Milton Cody MD Status:REG S DC 11/10/2024 Milton Cody Re : ERCP procedure for Galilea Glass Dear Escobar This procedure was performed on Sunday, November 10, 2024. My impressions and recommendations are as follows: Impressions : - Choledocholithiasis was found. Complete removal was accomplished by biliary sphincterotomy and balloon extraction. - A biliary sphincterotomy was performed. - The biliary tree was swept. - One stent was removed from the biliary tree. Recommendations : My findings are described in the full procedure note, which is enclosed. If I can be of further assistance, please feel free to contact me at . Sincerely, Paolo Waller DO 11/10/2024 1:21:06 PM This report has been signed electronically. 11/10/24 1321 Date _ Paolo Marksignchristina Signature: Date (if indicated) CC: Dr. Milton Cody MD; Paolo Waller DO ~ Date Dictated: 11/10/24 1229 Date Transcribed: Lunchroom Mother: RF Signed [facility]05-19-2025 Consult note [facility] Medical Records Department [address] [place] [address] Anesthesia Postop Eval I 11/10/24 1319 MR#: [id number] Acct: [id number] Name: GALILEA GLASS Rep #:[id number] : 1975 49 From: Gumaro ROE PCP: Dr. Milton Cody MD Status:REG S DC Y Race: C Location: [place] [address] Anesthesia: Postop Eval I Current Vital Signs Temperature: 97.6 F Pulse Rate: 89 Blood Pressure: 117/90 Respiratory Rate: 16 Pulse Ox: 98 Oxygen Delivery Method: Room Air Assessment Airway patent: Yes Spontaneous unlabored respirations: Yes Mental status: Awake and Calm nausea: No Vomiting: No Anesthesia Complication: No Fluid Hydration Crystalloid volume administer (ml): 500 Total IV fluid infused: 500 Progress Note Anesthesia document: Postop Eval 1 completed: Yes 11/10/24 1319 GENERATION TECHNICIAN> Date _ Gumaro DesaiSullivan GENERATION TECHNICIAN Cosigner Signature: Date CC: ~ Signed [facility]05-19-2025 Consult note [facility] Medical Records Department [address] [place] [address] Pre-Anesthesia Evaluation 11/10/24 1158 MR#: [id number] Acct: [id number] Name: QUANGALILEA RENITA Rep #:[id number] : 1975 49 From: Ruy Gallagher MD PCP: Dr. Milton Cody MD Status:REG S DC Y Race: C Location: [place] [address] ASA Classification* ASA Classification ASA Classification: 3 Assessment & Plan Anesthesia* Anesthesia Assessment Anesthesia Assessment: Discussed sedation and/or anesthesia options, risks, benefits, and alternatives with patient/parents/legal guardian/POA. Questions invited. The patient/parents/legal guardian/POA seems to understand and agrees to proceedwith anesthesia plan. Reviewed the physical assessment, medical history, allergy history and patient home medications list prior to surgery/procedure/anesthetic and documented any changes. Performed airway and anesthesia risk assessments. Anesthesia Type Anesthesia Type: MAC (Avoid bupivicaine, procaine, propofol due to Brugada type !.avoid dehydration.) Anesthesia Focused Assessment* Temperature: 97.8 F Pulse Rate: 72 Blood Pressure: 122/82 Respiratory Rate: 16 Pulse Ox: 100 Airway Assessment Mouth opens: >3 cm Mallampati Score: II Focused Labs Anesthesia Preop lab: CBC WBC 5.7 K/mm3 (4.4-11.0) 09/02/24 05:49 09/02/24 RBC 3.93 M/mm3 (4.2-5.4) L 09/02/24 05:49 09/02/24 Hgb 10.8 g/dL (12.0-15.0) L 09/02/24 05:49 5 Hct 32.1 % (37-47) L 09/02/24 05:49 09/02/24 Plt Count 202 K/mm3 (150-450) 09/02/24 05:49 09/02/24 CHEMISTRY Potassium 3.6 mmol/L (3.3-5.1) 09/02/24 05:49 09/02/24 Sodium 137 mmol/L (133-145) 09/02/24 05:49 09/02/24 Magnesium 2.0 mg/dL (1.5-2.2) 08/31/24 07:30 08/31/24 Phosphorus 2.0 mg/dL (2.7-4.5) L 08/31/24 07:30 08/31/24 BUN 6 mg/dL (4-19) 09/02/24 05:49 09/02/24 Creatinine 0.46 mg/dL (0.70-1.20) L 09/02/24 05:49 Glucose 93 mg/dL (70-99) 09/02/24 05:49 09/02/24 POC Glucose 108 mg/dL (74-106) H 08/30/24 06:31 08/30/24 TSH 0.14 uIU/mL (0.358-3.74) L 09/01/19 12:06 0303/14 COAG PT 13.5 SECONDS (11.7-14.9) 08/29/24 15:11 Urine Test Negative Negative 11/10/24 11:37 11/10/24 Pre-Assessment Diagnosis/Proposed Procedure Planned Operative Procedure(s): ERCP-STENT REMOVAL Anesthesia History Anesthesia History - piece cutter: Anesthesia History - piece cutter Hx Hospitalization Yes: 08/202411/06/24 15:18 Any Problems With Anesthesia No 11/06/24 15:18 Cholinesterase deficiency No 11/06/24 15:18 You/Your Family Experience No 11/06/24 15:18 fever (hyperthermia) with Relationship Recent Exposure to Contagious No 11/10/24 11:44 Disease Does patient have nerve No 11/06/24 15:18 stimulator Patient instructed to have device shut off --Does patient have Pacemaker No 11/10/24 11:44 or ICD? When Was Last Pacemaker Check QUESTION #4 FULL TEXT: You/Your Family Experience fever (hyperthermia) with Anesthesia Last Oral Intake Last Oral intake: Last Oral Intake NPO since 22:00 11/10/24 11:44 Meds taken in AM with sips of Yes 11/10/24 11:44 water? Meds patient instructed to take am of surgery PONV PONV - piece cutter: PONV - piece cutter Female Yes 11/06/24 15:18 HX of Motion Sickness Yes 11/06/24 15:18 HX of N/V After Surgery No 11/06/24 15:18 Non-Smoker Yes 11/06/24 15:18 Duration of Surgery greater No 11/06/24 15:18 than 60 minutes Number of Risk Factors 3 11/06/24 15:18 PONV Score Moderate Risk 11/06/24 15:18 Height & Weight Height & Weight: Anesthesia: Height & Weight Height 5 ft 2 in 11/10/24 11:44 Weight: 89 kg 11/10/24 11:44 Body Mass Index (BMI) 35.9 11/10/24 11:44 Respiratory Assessment Respiratory Assessment - piece cutter: Respiratory Tract Infection Hx - piece cutter Hx Respiratory Tract Infection No 11/06/24 15:18 STOP Sleep Apnea STOP Sleep Apnea - piece cutter: STOP Sleep Apnea - piece cutter Hx Hypertension No 11/06/24 15:18 Hx Sleep Apnea No 11/06/24 15:18 CPAP BIPAP Do you snore loudly (louder No 11/06/24 15:18 than talking or can be heard Do you often feel tired/ No 11/06/24 15:18 fatigued/ sleepy during daytime? Has anyone observed you stop No 11/06/24 15:18 breathing during sleep? STOP Results Negative 11/06/24 15:18 QUESTION #5 FULL TEXT : Do you snore loudly (louder than talking or can be heard through closeddoors)? Tobacco Use History Tobacco Use History - piece cutter: Tobacco Use History - piece cutter Tobacco Use Smoking Status Never smoker 11/06/24 15:18 Hx Tobacco Use No 11/06/24 15:18 Years Smoking Packs Smoked per Day Smoking Cessation Date was within the last 15 years Hx Smoking Cessation Date Hx Smoking Cessation Counseling Hematologic Medial History Hematologic Hx - piece cutter: Hematologic Medical Hx - lifestyle consultant Hx of Blood Transfusion No 11/06/24 15:18 Hx of Transfusion in last 3 No 11/06/24 15:18 Months Date of Last Transfusion (if within last 3 months) Ever experience any problems No 11/06/24 15:18 with transfusion(s)? Specify any problems Hx of Preganancy in last 3 No 11/06/24 15:18 Months Nurse Filling Out Transfusion [facility] 11/06/24 15:18 & Questions: Date: 11/06/24 11/06/24 15:18 Time: 11/06/24 15:18 Patient unable to answer at this time (ie. confused, unrespo /Reproduction History /Reproductive History - piece cutter: /Reproductive Hx- piece cutter Hx Now No 11/06/24 15:18 Gestational Age (in weeks): EDC: Hx Hx Para Hx Section SAB No 11/06/24 15:18 Active Medications Active Medications: Current Medications Generic Name Dose Route Start Last Admin Trade Name Freq PRN Reason Stop Dose Admin Lactated Ringer's 1,000 mls @ 15 mls/hr 11/10/24 11:30 11/10/24 11:53 IV 15 mls/hr .Q48H CAROLEE Administration PFSH Medical History Wears contact lenses Wears glasses Thyroid disease Anemia Seizures Non-smoker History of stress test History of Holter monitoring Cardiology follow-up encounter PCOS (polycystic ovarian syndrome) Migraine headache Home Medications ?Medication ?Instructions ?Recorded ?Last Taken ?Type thyroid (pork) 60 mg tablet 60 mg PO DAILY 08/23/20 History ([place] Thyroid) levothyroxine 25 mcg tablet 25 mcg PO SUTUWETHSA 08/2911/10/24 History Allergy/AdvReac Type Severity Reaction Status Date / Time Penicillins Allergy Intermediate Hives Verified 11/10/24 11:43 chlorhexidine Allergy Mild Rash Verified 11/10/24 11:43 Family History Other Cancer Diabetes Heart disease Hypertension Surgical History S/P cholecystectomy History of lobectomy of thyroid Social History household members: spouse housing: house Smoking Status: Never smoker Review of Systems (Anesthesia) ROS Narrative System reviewed and no additional complaints, except as documented. 11/10/24 1210 > Date _ Ruy Ramirez Signature: Date CC: ~ Signed [facility]05-19-2025 History and physical note [facility] Medical Records Department [address] [place] [address] History & Physical Exam 11/10/24 1154 MR#: [id number] Acct: [id number] Name: GALILEA GLASS Rep #:[id number] : 1975 49 From: Paolo Waller DO PCP: Dr. Milton Cody MD Status:REG S [place] Location: [place] [address] HPI - General General Date of Admission: 11/10/24 HPI Narrative tre SMITH a 49 F who presented to [facility] ED on 08/29/2024 with abdominal pain with nausea, fever/chills and URI symptoms. She was diagnosed with acute cholangitis secondary to choledocholithiasis. CT abdomen pelvis and gallbladder ultrasound on admit showed distended gallbladder with multiple calculi and dilated common bile duct. LFTs with T. bili 4.4, direct bili 2.9, AST 250, ALT 628, alk phos 266. Fevers present on admission. S/p ERCP on 08/29 with stone extraction and common bile duct stenting. S/p laparoscopic cholecystectomy on 08/31. Patient tolerated both procedures well. Labs improved postoperatively. Treated with IV antibiotics here and discharged on p.o. Levaquin to complete 10-day course of antibiotics total, stop date 09/08. She comes in for repeat ERCP with stent removal. [facility] Medical History Wears contact lenses Wears glasses Thyroid disease Anemia Seizures Non-smoker History of stress test History of Holter monitoring Cardiology follow-up encounter PCOS (polycystic ovarian syndrome) Migraine headache Home Medications ?Medication ?Instructions ?Recorded ?Last Taken ?Type thyroid (pork) 60 mg tablet 60 mg PO DAILY 08/23/20 History ([place] Thyroid) levothyroxine 25 mcg tablet 25 mcg PO SUTUWETHSA 08/2911/10/24 History Allergy/AdvReac Type Severity Reaction Status Date / Time Penicillins Allergy Intermediate Hives Verified 11/10/24 11:43 chlorhexidine Allergy Mild Rash Verified 11/10/24 11:43 Family History Other Cancer Diabetes Heart disease Hypertension Surgical History S/P cholecystectomy History of lobectomy of thyroid Social History household members: spouse housing: house Smoking Status: Never smoker Vital Signs Vital Signs Vital Signs: 11/10/24 11:44 11/10/24 11:44 Temperature 97.8 F Temperature Source Temporal Pulse Rate 72 Respiratory Rate 16 Respiratory Pattern Normal Blood Pressure 122/82 H Blood Pressure Mean 95 Blood Pressure Source Monitor Blood Pressure Position Semi-Fowlers Blood Pressure Location Left Arm Pulse Ox 100 Oxygen Delivery Method Room Air Weight Weight: 196 lb 3.382 oz Body Mass Index (BMI) 35.9 Physical Exam Const alert, oriented x3, no apparent distress and healthy appearing General Appearance: cooperative GI normal to inspection, nondistended, normoactive bowel sounds, soft to palpation,non-tender and non-distended Percussion: normal to percussion Rectal Exam: deferred Results Lab / Micro Data Labs: Laboratory Results - last 24 hr 11/10/24 11:37: Urine Test Negative Assessment & Plan Assessment/Plan (1) Ascending cholangitis: PLAN: She will undergo ERCP with stent removal or exchange. She was explained alternatives, risk, benefits including almost any bleeding, infection, sepsis, perforation, need for emergent urgent . She will have an ASA of 3. 11/10/24 1201 Cosigner Signature (if applicable): CC: Dr. Milton Cody MD; Paolo Waller DO~ Signed [facility]05-19-2025 [facility] Medical Records Department [address] [place] [address] History Physical Exam 11/10/24 1154 MR#: [id number] Acct: [id number] Name: GALILEA GLASS Rep #: [id number] : 1975 49 From: Paolo Waller DO PCP: Dr. Milton Cody MD Status:[facility] Location: [place] [address] HPI - General General Date of Admission: 11/10/24 HPI Narrative tre SMITH a 49 F who presented to [facility] ED on 08/29/2024 with abdominal pain with nausea, fever/chills and URI symptoms. She was diagnosed with acute cholangitis secondary to choledocholithiasis. CT abdomen pelvis and gallbladder ultrasound on admit showed distended gallbladder with multiple calculi and dilated common bile duct. LFTs with T. bili 4.4, direct bili 2.9, AST 250, ALT 628, alk phos 266. Fevers present on admission. S/p ERCP on 08/29 with stone extraction and common bile duct stenting. S/p laparoscopic cholecystectomy on 08/31. Patient tolerated both procedures well. Labs improved postoperatively. Treated with IV antibiotics here and discharged on p.o. Levaquin to complete 10- day course of antibiotics total, stop date 09/08. She comes in for repeat ERCP with stent removal. [facility] Medical History Wears contact lenses Wears glasses Thyroid disease Anemia Seizures Non-smoker History of stress test History of Holter monitoring Cardiology follow-up encounter PCOS (polycystic ovarian syndrome) Migraine headache Home Medications ???Medication ???Instructions ???Recorded ???Last Taken ???Type thyroid (pork) 60 mg tablet 60 mg PO DAILY 08/23/20 08/29/24 H istory ([place] Thyroid) levothyroxine 25 mcg tablet 25 mcg PO SUTUWETHSA 08/29/2410/23 History Allergy/AdvReac Type Severity Reaction Status Date / Time Penicillins Allergy Intermediate Hives Verified 11/10/24 11:43 chlorhexidine Allergy Mild Rash Verified 11/10/24 11:43 Family History Other Cancer Diabetes Heart disease Hypertension Surgical History S/P cholecystectomy History of lobectomy of thyroid Social History household members: spouse housing: house Smoking Status: Never smoker Vital Signs Vital Signs Vital Signs: 11/10/24 11:44 11/10/24 11:44 Temperature 97.8 F Temperature Source Temporal Pulse Rate 72 Respiratory Rate 16 Respiratory Pattern Normal Blood Pressure 122/82 H Blood Pressure Mean 95 Blood Pressure Source Monitor Blood Pressure Position Semi-Fowlers Blood Pressure Location Left Arm Pulse Ox 100 Oxygen Delivery Method Room Air Weight Weight: 196 lb 3.382 oz Body Mass Index (BMI) 35.9 Physical Exam Const alert, oriented x3, no apparent distress and healthy appearing General Appearance: cooperative GI normal to inspection, nondistended, normoactive bowel sounds, soft to palpation, non-tender and non- distended Percussion: normal to percussion Rectal Exam: deferred Results Lab / Micro Data Labs: Laboratory Results - last 24 hr 11/10/24 11:37: Urine Test Negative Assessment Plan Assessment/Plan (1) Ascending cholangitis: PLAN: She will undergo ERCP with stent removal or exchange. She was explained alternatives, risk, benefits including almost any bleeding, infection, sepsis, perforation, need for emergent urgent . She will have an ASA of 3. 11/10/24 1201 Cosigner Signature (if applicable): CC: Dr. Milton Cody MD; Paolo Waller DO [facility] Telephone encounter Note* Telephone Encounter - Dilia Valenzuela - 11/07/2024 3:57 PM EDT Cardiac clearance faxed to Vinay and fax confirmation scanned in Dilia Valenzuela [facility]05-16-2025 Miscellaneous Notes* Telephone Encounter - Dilia Valenzuela - 11/07/2024 3:57 PM EDT Cardiac clearance faxed to Vinay and fax confirmation scanned in Dilia Valenzuela documented in this encounterOhio [facility]25 Instructions* Patient Instructions* Kevin Marvin MD - 11/07/2024 3:14 PM EDT We discussed your diagnosis of Brugada syndrome: - Your EKG from the ER is suspicious for Brugada syndrome. This is a condition that can affect the heart's electrical system and may increase the risk of abnormal heart rhythms. - We will proceed with genetic testing to confirm the diagnosis and determine if your children may also need testing. This will be done at the [facility]. - To monitor your heart rhythms, I will schedule an appointment to implant a loop recorder. This christopher small device placed under the skin near your heart to detect any abnormal rhythms. The procedure is done under local anesthesia and takes about five minutes. - If the loop recorder detects abnormal rhythms, we may need to consider placing a defibrillator toprotect you from life-threatening arrhythmias. We discussed precautions for managing Brugada syndrome: - Avoid dehydration by drinking plenty of fluids. - Promptly treat any fevers. If you suspect a fever, take Tylenol and use cool compresses to bring your temperature down quickly. - Avoid alcohol and certain medications that can trigger episodes. Before starting any new medications or supplements, check [email or web address] to ensure they are safe. - Magnesium and vitamin D supplements are safe to continue if needed. Avoid playing competitive sports. This might apply to people at high risk of a serious irregular heart rhythm. Ask your health care provider if you should avoid such sports activities. We discussed your recent seizure-like episode: - The episode you experienced on September 30 is unclear. It may have been a seizure or an abnormal heart rhythm. The loop recorder will help us determine if future episodes are related to your heart. - You have not had any episodes of passing out while awake, but please let us know if this occurs in the future. We discussed your upcoming stent removal: - There are no contraindications to having your bile duct stent removed. Please inform the surgicalteam about your Brugada syndrome diagnosis so they can use appropriate anesthesia and medications. Next steps: - I will schedule an appointment for the loop recorder implantation. - Genetic testing will be arranged at the [facility]. - Continue monitoring your symptoms and follow the precautions discussed. If you experience fainting, severe dizziness, or other concerning symptoms, please contact our office or go to the ER immediately. documented in this encounterOhio State [facility]25 NoteHNO ID: [id number] Author: KEVIN MARVIN MD Service: ? Author Type: Physician Type: Progress Notes Filed: 11/07/2024 15:39 Note Text: PRIMARY CARE PHYSICIAN: Milton Cody [address] [place] [address] REFERRING PHYSICIAN: Milton Cody [address] [facility] [id number] Patient Care Team: Milton Cody MD as PCP - General (Family Medicine) Crystal Valentine APRN.CNP as Loan Expeditor (Family Medicine) Kaylan Rodriguez APRN.CNP as Loan Expeditor (Family Medicine) CHIEF COMPLAINT: Brugada pattern on EKG HISTORY OF PRESENT ILLNESS: Ms. 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 Patient was seen at [facility] in August of this year with sinus congestion and upper respiratory symptoms, likely diagnosed with RSV. She was febrile at that time with a temp of 102, with an elevated white cell count. Gallbladder ultrasound showed a distended gallbladder with cholelithiasis and she was diagnosed with acute cholangitis and referred to acute care hospital. Twelve-lead EKG during this time also showed sinus tachycardia with rates in the 120s and with Brugada type I pattern. She, laparoscopy cholecystectomy on 08/31/2024, RSV improved symptoms improved and patient was eventually discharged from the hospital on 09/02/2024 in stable condition. Previously to this she was also evaluated in the PCP clinic for for palpitations in June and recommended a stress echo that showed appropriate heart rate response and low risk with no ischemia and normal EF. A Zio patch monitor was also ordered that did not reveal any significant ectopy. She denies any prior episodes of syncope or known arrhythmias. She reports a recent episode on September 30, where she suspects she had a seizure. Her daughter observed her arms and legs shaking and flailing while she was asleep, and noted that she was difficult to awaken. The patient also experienced nocturnal enuresis during this episode, which was a new occurrence for her. Her Fitbit recorded a significant heart rate spike at 2:00 AM during this event. She denies any history of similar episodes or seizures prior to this incident. She has had evaluation completed with neurology including MRI that was unrevealing. EEG completed on October 09 with potential epileptogenicity in the left frontotemporal region. No seizures noted. She reports feeling lightheaded and dizzy when bending over and standing up too quickly. She denies any episodes of syncope while awake. She has a significant family history of cardiac issues. Her father experienced an CT in his 40s and underwent CABG in his 50s. Three of his siblings also had cardiac events requiring interventions. A paternal cousin, aged 49-50, reportedly of an CT in May. She also mentions an uncle who drowned in his early 20s, but denies any known family history of sudden cardiac or ICD placement. She denies any alcohol use and has stopped taking all supplements, including vitamin D and magnesium, following her recent hospitalization. I have confirmed and edited as necessary, the PFSH and ROS obtained by others. PAST MEDICAL HISTORY Diagnosis Date Heel spur left foot menorrhagia PCOS (polycystic ovarian syndrome) Plantar fasciitis of left foot Thyroid nodule Tinea of nail 03/28/2018 03/28/18: [email or web address] PAST SURGICAL HISTORY Procedure Laterality Date DELIVERY ONLY , low cervical DELIVERY ONLY , low cervical DELIVERY ONLY , low transverse PAST SURGICAL HISTORY OF 2012 partial thyroidectomy TX MISSED FIRST TRIMESTER SURGICAL 01/12/06 missed US GUIDED THYROID BIOPSY 06/2012 SOCIAL HISTORY Social History Tobacco Use Smoking status: Never Smokeless tobacco: Never Vaping Use Vaping status: Never Used Substance Use Topics Alcohol use: No Drug use: No FAMILY HISTORY Problem Relation Age of Onset Diabetes Father Heart Father TRIPLE BYPASS Cancer Father PANCREATIC Breast Cancer Maternal Grandmother Diabetes Maternal Grandmother Cancer Maternal Grandfather STOMACH CANCER Cancer Paternal Grandmother OVARIAN/UTERINE Heart Paternal Grandfather other (LUPUS) Maternal Aunt Cancer Other cousin (fa's side) melanoma dx 2006 Cancer Other GAUNT WITH BLADDER CANCCER other (Sjogren's Disease) Other Maternal cousin other (Brain Cancer) Other other (PCOS) Daughter other (PCOS) Other Paternal Cousin ALLERGIES: ALLERGIES Allergen Reactions Amoxicillin Hives Chlorhexidine Rash Pt had extensive rash and itching after receiving this as a skin preparation prior to C Section 08/06/07 Penicillins Hives MEDICATIONS: ARMOUR THYROID 60 mg Take 60 mg by mouth once daily. levothyroxine (SYNTHROID) 25 mcg tablet Take 25 mcg by mo (more content not included)...[facility]05-16-2025 History of Present illness Narrative* Kevin Marvin MD - 11/07/2024 2:40 PM EDT Images from the original note were not included. PRIMARY CARE PHYSICIAN: Milton Cody [address] [place] [phone] REFERRING PHYSICIAN: Milton Cody [address] [place] [id number] Patient Care Team: Milton Cody MD as PCP - General (Family Medicine) Crystal Valentine APRN.CNP as Loan Expeditor (Family Medicine) Kaylan Rodriguez APRN.CNP as Loan Expeditor (Family Medicine) CHIEF COMPLAINT: Brugada pattern on EKG HISTORY OF PRESENT ILLNESS: Ms. 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 Patient was seen at [facility] in August of this year with sinus congestion and upper respiratory symptoms, likely diagnosed with RSV. She was febrile at that time with a temp of 102, with an elevated white cell count. Gallbladder ultrasound showed a distended gallbladder with cholelithiasis and she was diagnosed with acute cholangitis and referred to [facility]. Twelve-lead EKG during this time also showed sinus tachycardia with rates in the 120s and with Brugada type Ipattern. She, laparoscopy cholecystectomy on 08/31/2024, RSV improved symptoms improved and patient was eventually discharged from the hospital on 09/02/2024 in stable condition. Previously to this she was also evaluated in the PCP clinic for for palpitations in June and recommended a stress echo that showed appropriate heart rate response and low risk with no ischemia andnormal EF. A Zio patch monitor was also ordered that did not reveal any significant ectopy. She denies any prior episodes of syncope or known arrhythmias. She reports a recent episode on September 30, where she suspects she had a seizure. Her daughter observed her arms and legs shaking and flailing while she was asleep, and noted that she was difficult to awaken. The patient also experiencednocturnal enuresis during this episode, which was a new occurrence for her. Her Fitbit recorded a significant heart rate spike at 2:00 AM during this event. She denies any history of similar episodesor seizures prior to this incident. She has had evaluation completed with neurology including MRI that was unrevealing. EEG completed on October 09 with potential epileptogenicity in the left frontotemporal region. No seizures noted. She reports feeling lightheaded and dizzy when bending over and standing up too quickly. She deniesany episodes of syncope while awake. She has a significant family history of cardiac issues. Her father experienced an CT in his 40s andunderwent CABG in his 50s. Three of his siblings also had cardiac events requiring interventions. Apaternal cousin, aged 49-50, reportedly of an CT in May. She also mentions an uncle who drowned in his early 20s, but denies any known family history of sudden cardiac or ICD placement. She denies any alcohol use and has stopped taking all supplements, including vitamin D and magnesium, following her recent hospitalization. I have confirmed and edited as necessary, the PFSH and ROS obtained by others. PAST MEDICAL HISTORY Diagnosis Date Heel spur left foot menorrhagia PCOS (polycystic ovarian syndrome) Plantar fasciitis of left foot Thyroid nodule Tinea of nail 03/28/2018 03/28/18: [email or web address] PAST SURGICAL HISTORY Procedure Laterality Date DELIVERY ONLY , low cervical DELIVERY ONLY , low cervical DELIVERY ONLY , low transverse PAST SURGICAL HISTORY OF 2012 partial thyroidectomy TX MISSED FIRST TRIMESTER SURGICAL 01/12/06 missed US GUIDED THYROID BIOPSY 06/2012 SOCIAL HISTORY Social History Tobacco Use Smoking status: Never Smokeless tobacco: Never Vaping Use Vaping status: Never Used Substance Use Topics Alcohol use: No Drug use: No FAMILY HISTORY Problem Relation Age of Onset Diabetes Father Heart Father TRIPLE BYPASS Cancer Father PANCREATIC Breast Cancer Maternal Grandmother Diabetes Maternal Grandmother Cancer Maternal Grandfather STOMACH CANCER Cancer Paternal Grandmother OVARIAN/UTERINE Heart Paternal Grandfather other (LUPUS) Maternal Aunt Cancer Other cousin (fa's side) melanoma dx 2006 Cancer Other GAUNT WITH BLADDER CANCCER other (Sjogren's Disease) Other Maternal cousin other (Brain Cancer) Other other (PCOS) Daughter other (PCOS) Other Paternal Cousin ALLERGIES: ALLERGIES Allergen Reactions Amoxicillin Hives Chlorhexidine Rash Pt had extensive rash and itching after receiving this as a skin preparation prior to C Section 08/06/07 Penicillins Hives MEDICATIONS: ARMOUR THYROID 60 mg Take 60 mg by mouth once daily. levothyroxine (SYNTHROID) 25 mcg tablet Take 25 mcg by mouth every other day. REVIEW OF SYSTEMS: As in HPI PHYSICAL EXAMINATION: BP 124/88 Pulse 91 Resp 18 Ht 5' 2 (1.58m) Wt 197 lb (89.4kg) SpO2 98% LMP 10/09/2024 BMI 36.02 kg/(m^2). General: Well appearing, in no acute distress. Neck: No jugular venous distention. Lungs: Clear to auscultation bilaterally. Heart: Regular rhythm, S1, S2 normal. Extremities: No peripheral edema. Neuro: Oriented to person, place and time, alert, cooperative, gait coordinated. CARDIOVASCULAR MEDICINE TESTING: Electrocardiogram: Normal sinus rhythm, heart rate 87 bpm. Stress Test:Echocardiogram: 07/2024 - The exercise stress echo was negative for ischemia at 101 % of MPHR (6.6 METS). - The left ventricle is normal in size. Left ventricular systolic function is normal. EF = 56 5% (2D biplane) Normal left ventricular diastolic function. - The right ventricle is normal in size. Right ventricular systolic function is normal. The patient exercised according to the Rishabh 10% protocol. The estimated end-exercise MET level achieved using the FRIEND equation was 6.6, which is within the 25th to 50th percentile for age and sex. The estimated end-exercise MET level achieved using the previous ACSM equation was 7.8. The test was terminated due to general fatigue and the total exercise time was 6 minutes and 52 seconds. No symptoms provoked during stress. The maximum heart rate was 171 bpm, which is 101% of the predicted heart rate for age. Holter Monitor: 10/2024 Enrollment Dates: 10/10/2024-10/24/2024 IRHYTHM FINDINGS: Patient had a min HR of 52 bpm, max HR of 162 bpm, and avg HR of 88 bpm. Predominant underlying rhythm was Sinus Rhythm. Isolated SVEs were rare (<1.0%), and no SVE Couplets or SVE Triplets were present. Isolated VEs were rare (<1.0%), and no VE Couplets or VE Triplets were present. I have personally reviewed the Electrocardiogram and Holter. ASSESSMENT/PLAN: 1. Brugada pattern on electrocardiogram - ICD9: 427.89, ICD10: I49.8 (primary diagnosis) - SURGICAL REQUEST - ELECTIVE (01/2020) - CONSULT TO MEDICAL GENETICS - CARDIOVASCULAR 2. Family history of ischemic heart disease - ICD9: V17.3, ICD10: Z82.49 3. Seizure (HCC) - ICD9: 780.39, ICD10: R56.9 IMPRESSION: Ms. 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 PLAN AND RECOMMENDATIONS: 1. Brugada pattern on electrocardiogram (I49.8) EKG from the ER is suspicious for type I Brugada pattern. Patient has not experienced syncope or palpitations. Stress echo was low risk and normal, with normal heart function. Holter monitor did not show any significant abnormalities. - Ordered genetic testing to be conducted at [facility]. If genetic testing is positive, her children will also need to be tested. - Educated patient on avoiding dehydration, promptly treating fevers with Tylenol and cooling measures, and avoiding certain medications and alcohol. - Provided patient with information on [email or web address] for checking drug interactions. - Scheduled implantation of a loop recorder to monitor for abnormal rhythms. - Discussed potential need for an ICD if abnormal rhythms are detected or she has a syncopal episode. The prior prior seizure episode might be suspicious for syncope? - Patient understands and agrees with the treatment plan. - She is supposed to undergo stent removal procedure on the bile duct at [facility]. She does not have any contraindications for the procedure including anesthesia, drugs to avoid forpatient's with Brugada pattern or syndrome are bupivacaine, procaine and propofol. Other drugs could be reviewed on [email or web address]. She is able to perform greater than 4 METS at baseline, has a recent low risk treadmill stress echo. No other cardiac workup required prior to surgery and no contraindications from a cardiac standpoint. 2. Family history of ischemic heart disease (Z82.49) Significant family history of ischemic heart disease. Father had a myocardial infarction in his 40sand a triple bypass in his 50s. Multiple paternal uncles had cardiac events requiring bypass surgery. Paternal cousin recently at age 49-50 due to a suspected myocardial infarction. 3. Seizure (HCC) (R56.9) Episode on September 30 characterized by nocturnal enuresis, witnessed tonic-clonic movements, and postictal snoring. No prior history of seizures. Neurology evaluation was unremarkable, and patient wasdischarged from neurology follow-up unless further episodes occur. - Monitor for any further seizure activity. - Neurology is recommending establishing with epilepsy specialist for further follow-ups. Return in about 6 months (around 05/10/2025). Kevin Marvin MD Recording using ambient [employer] software for draft documentation of the visit was discussed with the patient/authorized employment program representative; all questions welcomed and answered. Patient/authorized employment program representative agreed to proceed documented in this encounterOhio State [facility] Instructions* Patient Instructions* Chavez Carrera APRN.CORPORATE REPRESENTATIVE - 11/07/2024 10:16 AM EDT Consider establishing with specialists within our Epilepsy department to further evaluate symptoms and EEG. You can call [phone] to schedule. I recommend following precautions until at least 6 months without seizure activity: avoid all activities that may be hazardous to yourself or others in the context of a seizure, sudden loss of awareness or a fall. These include but are not limited to: No driving, no riding bicycles in traffic, no operating dangerous machinery, no engaging in activities at dangerous heights including using ladders, no taking baths unattended, no swimming, engaging in activities near fire unattended, caution or avoidance of cooking or using potentially dangerous objects such as knives. documented in this encounterOhio State [facility]05-[facility]25 History of Present illness Narrative* Chavez Carrera APRN.CNP - 11/07/2024 9:30 AM EDT Images from the original note were not included. [facility] for General Neurology Name: Galilea Glass Age: [age] year old Gender: female Primary Care Provider: Milton Cody MD Consult requested for brugada pattern on electrocardiogram, spell of abnormal behavior, urinary incontinence unspecified type, convulsions unspecified convulsion type by Milton Cody. Recommendations will be communicated via shared medical record or US mail. Chief Complaint:New Patient Evaluation and Seizures 11/07/2024 - General Neurology, Chavez Carrera APRN.CORPORATE REPRESENTATIVE ASSESSMENT Galilea Glass is a 49 year old right handed female with past medical history of menorrhagia, PCOS, plantar fasciitis of left foot, thyroid nodule, tinea of nail, seen today for evaluation of an episode where she had convulsions and urinary incontinence. Patient has no recollection of events outside of finding that she had urinated herself upon wakening. She reports that the episode occurred thenight of September 30/hosiery bagger October 01, 2024 possibly around 0200. Her ill daughter was sleeping with her at that time and told her that she saw convulsions followed by snoring and the patient woke in the morning with findings of urinary incontinence. Later evaluated by PCP and had MRI brain completed October 06, 2024 that was unrevealing and EEG completed October 09, 2024. EEG with noted potential epileptogenicity in left frontotemporal region and bilateral cerebral dysfunction in left more than right frontotemporal region. No seizures noted. She has not had other symptoms similar to what she experienced in early September but reports history of episodes that started a couple of years ago where she can feel anxious, face can feel tingly and numb (whole face), and it can feel like she is in a dream and she feels like she can predict what people will say. The episodes can last less than 1 minuteand she can go for 9 months to 1 year without them. She suspects that the seizure like episode in Ap ril was provoked with prior illness with reported gallstones and what sounds to be sepsis causing metabolic disturbances. Labs completed days after the event were unrevealing, but she voices she had been hospitalized prior to then and voices abnormalities during hospitalization along with EKG findings of Brugada pattern. Prior lab results not viewable via Care Everywhere. She also wonders if Brugada pattern is potential cause of her September episode. She is to undergo additional cardiac evaluationwith retort unloader. She inquires about clearance for procedure on Sunday reported to remove stent from gallbladder. From a neurological standpoint, I do not have a reason for why she would not be able to get the procedure done. I do recommend considering establishing with providers within ourEpilepsy department to further evaluate symptoms within their EMU. Referral placed. PLAN Consider establishing with specialists within our Epilepsy department to further evaluate symptoms and EEG. Encounter Diagnosis ICD-10-CM 1. 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 Spell of abnormal behavior R46.89 CONSULT TO NEUROLOGY 3. Urinary incontinence, unspecified type R32 4. Convulsions, unspecified convulsion type (HCC) R56.9 CONSULT TO NEUROLOGY Return if symptoms worsen or fail to improve. Chart, labs,and relevant images reviewed. HPI: Unaccompanied. Here for an evaluation of an episode that occurred the night of September 30/early October 01, 2024. Statescannot recall what symptoms she had. States will not be able to explain her symptoms until I read through what others wrote about her symptoms. States symptoms occurred while she was sleeping. Recalls waking up and feeling her underwear damp and wet. 17 year old daughter was in bed sick and was sleeping with her. Thought she was sweaty from being in the bed with her daughter or that she started her period. When she woke in the morning she realized that she urinated herself. Wondered if she sneezed during the night, stating can sometimes leak a little bit if she sneezes. Checked her fitbit which told her that her heart rate jumped during the night. Daughter told her that her upper and lower extremities were shaking and she tried to wake patient and she could not wake her. Daughter had sore throat and could not talk too loudly. States patient's symptoms stopped and she was lying on her back snoring more loudly than her which is unusualfor her. States daughter could not wake her after the event. Reports had stressful day that day in September. Taste tests at [employer] and had a lot of caffeine that day. Was worried about watching her daughter's kids since it was the first time watching them since having other health problems. [place] overwhelmed around that time because she was getting back into activity. [place] like she was overdoing her daily activities. Son in law had startled her earlier in the day. Reports Brugada finding on EKG in ER when she was having problems with her gallbladder. States she has had a lot of problems going on before the event. States she was having pains radiating up into left chest from lower sternum area. Has been undergoing cardiac work up. Has had sharp pain in area around xiphoid process. Reports has had multiple gallstones, over 30 of them and reports she had gangrenous changes becauseof it and states she had bacteria in her blood. Reports was later to have surgery on her gallbladder. States had drainage tube for 2.5 weeks that was later removed. [place] improved following that time. Has had sinus infection and woke with red eye recently and went to try to get treated for sinus infection, kidney infection, and suspected conjunctivitis. Occurred in August. Has been more drowsy than normal. Reports had temp around 103-105F and was told she was dehydrated and probably had RSV in August. Denies prior seizure activity with incontinence. Reports has had little weird episodes with a feeling of panic. States does not think it is anxiety or has events precipitating that would trigger anxiety. Can experience the anxiousness, face can then feel tingly and numb (whole face and lips), canfeel like she is in a dream or like she is a fly on the wall observing things. Then can feel taylor vu sensation and feels like she can predict what I will say. The episode can last for less than 1 minute, can maybe last 30 seconds. Following the episode she will be alert and can tell that she went through a weird episode. Can go for 9 months to 1 year without them. Unsure when the episodes started. Suspects a couple of years. States last episode she recalls her daughter talking to her about something occurring at school and she was sitting watching the news and predicted what they were goingto say. Reports was able to talk fine and carry on the rest of the day. Event Description Do events occur while seated / supine? Supine Prodrome description (taylor vu, impending doom): reported she was asleep. Eyes open or closed: unsure Eyes rolling back: unsure Convulsions: only with the episode in September Color change: not that she has noticed. Mouth maceration: not that she has noticed. Loss of bowel / bladder: states has not noticed any other episodes of incontinence outside of the one that occurred last month. Myalgia after event: states nothing out of ordinary for age and BMI. Post ictal state description (confused, lethargic): has not been told she has been confused. No lethargy. Relevant History injuries: denies Development milestones / learning disabilities: none known Alcohol use: denies Meningitis: no history Febrile seizures: none known Concussions: suspects but states never diagnosed. Occurred in elementary school. Family history of seizures: none known Family history of aneurysm: none known ROS: Headache: occasionally but states none out of the ordinary. Reports history of migraines with nausea or vomiting. Has not had migraine in a year or so. Reports daughter got diagnosed with hemiplegic migraines last month after her whole body went numb. Cannot recall when her last headache was. May have had reported tension headache 3 weeks ago. Can resolve when daughter rubs her neck for a few minutes. In the past would take Tylenol for headaches a couple of years ago. Tinnitus: reports chronic, unchanged, bilateral, unsure high or low pitched, non pulsatile. Reduced hearing/hearing changes: none reported when asked. Fever/chills: see above. Vision changes: none noticed Speech changes: denies Facial weakness/ptosis: denies Gait changes: denies Falls: denies Numbness/tingling: none noticed outside of her episodes reported above. Focal weakness: denies Near syncope: states that night when startled and when she gets up quickly she could feel lightheaded. Does not feel like she will lose consciousness. States felt more lightheaded than normal the dayof her event in September and was tired and had not eaten much that day. Tobacco use: denies Alcohol use: denies Other substance use: denies Recent medication changes: reports used to take magnesium and vitamin D. Stopped taking them. Reports history of iron deficiency so she changed the way she was eating. Suspects that it resolved. Reports iron pills made her vomit in the past Neurological family history: none known Review of Systems ACTIVE PROBLEM LIST Pcos (Polycystic Ovarian Syndrome) Hyperandrogenism History of Benign Thyroid Tumor Tinea of Nail Postoperative Hypothyroidism Back Pain Migraine Headache Non-Toxic Multinodular Goiter Segmental and Somatic Dysfunction PAST MEDICAL HISTORY Diagnosis Date Heel spur left foot menorrhagia PCOS (polycystic ovarian syndrome) Plantar fasciitis of left foot Thyroid nodule Tinea of nail 03/28/2018 03/28/18: zygomecetes Medications: Reviewed [facility] THYROID 60 mg Take 60 mg by mouth once daily. levothyroxine (SYNTHROID) 25 mcg tablet Take 25 mcg by mouth every other day. ALLERGIES Allergen Reactions Amoxicillin Hives Chlorhexidine Rash Pt had extensive rash and itching after receiving this as a skin preparation prior to C Section 08/06/07 Penicillins Hives FAMILY HISTORY Problem Relation Age of Onset Diabetes Father Heart Father TRIPLE BYPASS Cancer Father PANCREATIC Breast Cancer Maternal Grandmother Diabetes Maternal Grandmother Cancer Maternal Grandfather STOMACH CANCER Cancer Paternal Grandmother OVARIAN/UTERINE Heart Paternal Grandfather other (LUPUS) Maternal Aunt Cancer Other cousin (fa's side) melanoma dx 2006 Cancer Other GAUNT WITH BLADDER CANCCER other (Sjogren's Disease) Other Maternal cousin other (Brain Cancer) Other other (PCOS) Daughter other (PCOS) Other Paternal Cousin PAST SURGICAL HISTORY Procedure Laterality Date DELIVERY ONLY , low cervical DELIVERY ONLY , low cervical DELIVERY ONLY , low transverse PAST SURGICAL HISTORY OF 2012 partial thyroidectomy TX MISSED FIRST TRIMESTER SURGICAL 01/12/06 missed US GUIDED THYROID BIOPSY 06/2012 SOCIAL HISTORY No social history on file. Tobacco Use: Low Risk (10/28/2024) Patient History Smoking Tobacco Use: Never Smokeless Tobacco Use: Never Passive Exposure: Not on file PHYSICAL EXAM 11/07/24 0913 BP: 120/89 Pulse: 75 Neurological Exam Cognitive and Language: Alert and answered questions appropriately. Language was fluent. Followed simple and complex commands. Cranial Nerves: Visual valerio were full tested binocularly to finger counting in all 4 quadrants with difficulty throughout left eye testing, trying to track fingers throughout testing, some difficulty with right eye LUQ, trying to track fingers during that time. Pupils were equal and both reactiveto light. Extraocular movements were full with no diplopia or nystagmus. Facial sensation was normal to light touch in V1 to V3. Facial strength was symmetric. Normal hearing grossly bilaterally. Palatal raise was symmetric. Shoulder shrug was symmetric. Tongue protrusion was symmetric with no fasciculations. Right Left Shoulder Abduction: 5 5 Elbow Extension 5 5 Elbow Flexion 5 5 Wrist Extension 5 5 Finger Extension 5 5 Finger Abduction 5 5 Right Left Hip Flexion 5 5 Knee Extension 5 5 Knee Flexion 5 5 Dorsiflexion 5 5 Plantar Flexion 5 5 Rest tremor: absent Tone: Normal in all four limbs Reflexes: Right Left Brachioradialis 2 2 Biceps 2 2 Triceps 2 2 Patella 2 2 Ankle 2 2 Sensory: normal to light touch, vibration, temperature, and pinprick x 4 limbs. Negative Nunez's sign. No clonus of ankles. Withdraws during Babinski. No pronator drift. Coordination: Normal finger to nose and heel to santana testing bilaterally. Negative romberg. Normal gait. Able to heel, toe, tandem walk with mild difficulty during tandem. Labs: Lab Results Component Value Date WBC 7.20 10/03/2024 HCT 42.1 10/03/2024 MCV 83.4 10/03/2024 PLT 309 10/03/2024 Lab Results Component Value Date HBA1C 5.1 07/27/2023 HBA1C 5.2 03/01/2022 HBA1C 5.3 08/03/2021 HBA1C 5.4 09/10/2020 HBA1C 5.3 01/31/2020 Total Cholesterol, Nonfasting Date Value Ref Range Status 07/15/2024 145 <200 mg/dL Final Comment: <200 mg/dL, Desirable 200-239 mg/dL, Borderline high >239 mg/dL, High HDL Cholesterol, Nonfasting Date Value Ref Range Status 07/15/2024 53 >39 mg/dL Final Comment: 40-59 mg/dL, Acceptable >59 mg/dL, High: Negative risk factor for coronary heart disease <40 mg/dL, Low: Positive risk factor for coronary heart disease LDL Cholesterol Calculated, Nonfasting Date Value Ref Range Status 07/15/2024 75 <100 mg/dL Final Comment: <100 mg/dL, Optimal 100-129 mg/dL, Near optimal/above optimal 130-159 mg/dL, Borderline high 160-189 mg/dL, High >189 mg/dL, Very high Secondary prevention optimal LDL Cholesterol levels are recommended to be < 70 mg/dL Triglycerides, Nonfasting Date Value Ref Range Status 07/15/2024 83 <150 mg/dL Final Comment: <150 mg/dL, Normal 150-199 mg/dL, Borderline high 200-499 mg/dL, High >499 mg/dL, Very high Radiology: MRI Head/Brain - Last 2 Impressions MRI BRAIN WO/W IVCON Exam End: 10/06/2024 12:34 PM (Final result) Impression: IMPRESSION: No evidence of focal developmental or structural abnormality. Minimal nonspecific supratentorial white matter changes with differential ... , MRA Head and/or Neck - Last 2 Impressions No resulted procedures found. , MRI Spine - Last 2 Impressions No resulted procedures found. , CT Head/Brain - Last [address] BRAIN WWO CONTRAST Collected: 08/08/2011 10:45 AM (Final result) , and CTA Head and/or Neck - Last 2 No resulted procedures found. Note that unless urgent, test and MRI results will be discussed at next follow- up visit. PROMIS (Patient-Reported Outcomes Measurement Information System) is a set of person-centered measures that evaluates and monitors physical, social, and emotional health. It can be used with the general population and with individuals living with chronic conditions. PROMIS 10: PHYSICAL AND MENTAL HEALTH: 10/18/2022 PHQ-9 PHQ-2 Score 1 Medical Decision Making: Medical Decision Making Level: 1 - N/A I spent a total of 60 minutes on the date of the service which included preparing to see the patient, [id number] patient care, completing clinical documentation, obtaining and/or reviewing separately obtained history, performing a medically appropriate examination, counseling and educating the pat ient/family/caregiver, and ordering medications, tests, or procedures. Recording using [employer] software for draft documentation of the visit was discussed with the patient/authorized employment program representative; all questions welcomed and answered. Patient/authorized employment program representative agreed to proceed documented in [facility] NoteHNO ID: [id number] Author: CHAVEZ CARRERA APRN.CNP Service: ? Author Type: Nurse Practitioner Type: Progress Notes Filed: 11/07/2024 13:02 Note Text: [facility] for General Neurology Name: Galilea Glass Age: [age] year old Gender: female Primary Care Provider: Milton Cody MD Consult requested for brugada pattern on electrocardiogram, spell of abnormal behavior, urinary incontinence unspecified type, convulsions unspecified convulsion type by Milton Cody. Recommendations will be communicated via shared medical record or US mail. Chief Complaint:New Patient Evaluation and Seizures 11/07/2024 - General Neurology, Chavez Carrera APRN.MAGDALENA ASSESSMENT Galilea Glass is a 49 year old right handed female with past medical history of menorrhagia, PCOS, plantar fasciitis of left foot, thyroid nodule, tinea of nail, seen today for evaluation of an episode where she had convulsions and urinary incontinence. Patient has no recollection of events outside of finding that she had urinated herself upon wakening. She reports that the episode occurred the night of September 30/hosiery bagger October 01, 2024 possibly around 0200. Her ill daughter was sleeping with her at that time and told her that she saw convulsions followed by snoring and the patient woke in the morning with findings of urinary incontinence. Later evaluated by PCP and had MRI brain completed October 06, 2024 that was unrevealing and EEG completed October 09, 2024. EEG with noted potential epileptogenicity in left frontotemporal region and bilateral cerebral dysfunction in left more than right frontotemporal region. No seizures noted. She has not had other symptoms similar to what she experienced in early September but reports history of episodes that started a couple of years ago where she can feel anxious, face can feel tingly and numb (whole face), and it can feel like she is in a dream and she feels like she can predict what people will say. The episodes can last less than 1 minute and she can go for 9 months to 1 year without them. She suspects that the seizure like episode in September was provoked with prior illness with reported gallstones and what sounds to be sepsis causing metabolic disturbances. Labs completed days after the event were unrevealing, but she voices she had been hospitalized prior to then and voices abnormalities during hospitalization along with EKG findings of Brugada pattern. Prior lab results not viewable via Care Everywhere. She also wonders if Brugada pattern is potential cause of her September episode. She is to undergo additional cardiac evaluation with retort unloader. She inquires about clearance for procedure on Sunday reported to remove stent from gallbladder. From a neurological standpoint, I do not have a reason for why she would not be able to get the procedure done. I do recommend considering establishing with providers within our Epilepsy department to further evaluate symptoms within their EMU. Referral placed. PLAN Consider establishing with specialists within our Epilepsy department to further evaluate symptoms and EEG. Encounter Diagnosis ICD-10-CM 1. 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 Spell of abnormal behavior R46.89 CONSULT TO NEUROLOGY 3. Urinary incontinence, unspecified type R32 4. Convulsions, unspecified convulsion type (HCC) R56.9 CONSULT TO NEUROLOGY Return if symptoms worsen or fail to improve. Chart, labs,and relevant images reviewed. HPI: Unaccompanied. Here for an evaluation of an episode that occurred the night of September 30/early October 01, 2024. States cannot recall what symptoms she had. States will not be able to explain her symptoms until I read through what others wrote about her symptoms. States symptoms occurred while she was sleeping. Recalls waking up and feeling her underwear damp and wet. 17 year old daughter was in bed sick and was sleeping with her. Thought she was sweaty from being in the bed with her daughter or that she started her period. When she woke in the morning she realized that she urinated herself. Wondered if she sneezed during the night, stating can sometimes leak a little bit if she sneezes. Checked her fitbit which told her that her heart rate jumped during the night. Daughter told her that her upper and lower extremities were shaking and she tried to wake patient and she could not wake her. Daughter had sore throat and could not talk too loudly. States patient's symptoms stopped and she was lying on her back snoring more loudly than her which is unusual for her. States daughter could not wake her after the event. Reports had stressful day that day in September. Taste tests at [facility] and had a lot of caffeine that day. Was worried about watching her daughter's kids since it was the first time watching them since having other health problems. [place] overwhelmed around that time because she was getting (more content not included)...[facility]05-09-2025 Telephone encounter Note* Telephone Encounter - Jazmyne Gamez MA - 10/31/2024 2:02 PM EDT Patient informed. Jazmyne Gamez MA [facility]05-09-2025 Miscellaneous Notes* Telephone Encounter - Jazmyne Gamez MA - 10/31/2024 2:02 PM EDT Patient informed. Jazmyne Gamez MA * Telephone Encounter - Jazmyne Gamez MA - 10/31/2024 2:00 PM EDT ----- Message from Milton Cody MD sent at 10/31/2024 1:45 PM EDT ----- Let her know her monitor is ok. documented in this encounterOhio [facility]05-09-2025 Telephone encounter Note * Telephone Encounter - Jazmyne Gamez MA - 10/31/2024 2:00 PM EDT ----- Message from Milton Cody MD sent at 10/31/2024 1:45 PM EDT ----- Let her know her monitor is ok. [facility]05-06-2025 NoteHNO ID: [id number] Author: MILTON CODY MD Service: ? Author Type: Physician Type: Progress Notes Filed: 10/28/2024 14:40 Note Text: Patient presents with: 4 week follow up HPI: Patient presents today for office visit for follow up. Has follow up with neurology and cardiology next week. Had eeg and attempted zio. Just sent in. No results yet. Just went out in mail on Sunday. Had mild symptoms while wearing. Reviewed her her findings thus far. She states in hind sight, she wonders if she has had occasional spells dating back for years. Will have spells where she is aware but feels like she is in a dream. Has almost a taylor vu experience. Last spells was in the last year but not recently. See below. Gi issues are stable. Has occasional discomfort in lower abdomen. Mild cramping on her right. Has pcos. She is unsure if related to that. No bowel or urinary issues No fever or chills. Is minimal and does not feel like it is anything that requires labs or imaging. Sees Dr Waller in a few weeks to remove the stents. Red flags for re-assessment reviewed with patient in detail. Note was copied and pasted, without alteration from last ov: HOSPITAL FOLLOW UP: Reason for visit: General illness. Sinus congestion. Which facility: [facility] Date of visit: 08/29/24-09/02/24 Diagnosis: RSV, cholecystitis. Testing done: x-ray, labs, CT scan, EKG, labs, us. White count was 13.5. bili was 4.4. elevated lft's. Treatment given: Cholecystectomy Had intrahepatic biliary duct dilatation. And stone in gallbladder neck. Has seen surgery. Had a drain. He has cleared her from his standpoint. Still needs to go back to see Dr Waller to get her stent removed. No jaundice or itching. No abd pain. No fever or chills. No cough. Had seen [facility] earlier this year and had zio and had a stress echo for tachycardia and epigastric discomfort in The stress was ok however the zio came back not having any readings. No syncope. No palpitations, no current chest pain or shortness of breath. Seen in ER and while tachycardia and EKG was noted to have a brugada pattern with a rate of 123. I do not have the actual EKG available. . While in the hospital and in or. No issues noted. Ecgs here have been ok. No known hx of cardiac issues. Her cousin had a heart attack at age 50 and this winter. Her dad had an mi in his 40's. They did not pursue work up of same while in the hospital. ? ?Had a seizure. Last Sun. Daughter was sleeping with her and woke up because her mother was making odd noises and tried to wake her up. September was shaking with tonic clonic movements and making loud vocalizations. After she became silent and was snoring very loudyly. She could not wake her up and let her sleep. Has an old fitbit that noted she was having tachycardia at the time. Just a few minutes in length. She woke up the next am and noted she was incontinent when this occurred. She did not go to the er. Was not taking any new meds etc. No loss of control of bowel. Was mildly achy the next day. No hx of known seizures. She had a mild headache but has been ok the day before. No head injury. No hx of seizures etc. She is concerned because she was reading about brugada syndrome which can be associated with seizures. Discussed safety of not driving until worked up. Latest Ref Rng 10/03/2024 WBC 3.70 - 11.00 k/uL 7.20 RBC 3.90 - 5.20 m/uL 5.05 Hemoglobin 11.5 - 15.5 g/dL 13.7 Hematocrit 36.0 - 46.0 % 42.1 MCV 80.0 - 100.0 fL 83.4 MCH 26.0 - 34.0 pg 27.1 MCHC 30.5 - 36.0 g/dL 32.5 RDW-CV 11.5 - 15.0 % 12.9 Platelet Count 150 - 400 k/uL 309 MPV 9.0 - 12.7 fL 10.4 Neut% % 69.7 Abs Neut (ANC) 1.45 - 7.50 k/uL 5.02 Lymph% % 25.3 Abs Lymph 1.00 - 4.00 k/uL 1.82 Stanley% % 3.6 Abs Stanley <0.87 k/uL 0.26 Eosin% % 0.7 Abs Eosin <0.46 k/uL 0.05 Baso% % 0.4 Abs Baso <0.11 k/uL 0.03 Immature Gran % % 0.3 IMMATURE GRANS (ABS) <0.10 k/uL <0.03 NRBC /100 WBC 0.0 Absolute nRBC <0.01 k/uL <0.01 DTYPE Auto Color Yellow Yellow Clarity Clear Clear Glucose, Urine Negative Negative Bilirubin, Urine Negative Negative Ketones, Urine Negative Negative Specific [place], Ur 1.005 - 1.030 1.013 Hemoglobin/Blood,Ur Negative Negative pH, Urine <8.5 6.5 Protein, Urine Negative Negative Urobilinogen 0.2-1.0 EU/dL 0.2 EU/dL Nitrites Negative Negative Leukest Negative Negative WBC, Urine 0-5 /HPF 0-5 /HPF RBC, Urine 0-2 /HPF 0-2 /HPF Bacteria Negative /HPF Negative Epithelial Cells /HPF None Seen Hyaline Cast 0 /LPF 0 /LPF Protein, Total 6.3 - 8.0 g/dL 7.4 Albumin 3.9 - 4.9 g/dL 4.2 Calcium 8.5 - 10.2 mg/dL 9.1 Bilirubin, Total 0.2 - 1.3 mg/dL 0.7 Alkaline Phosphatase 34 - 123 U/L 71 AST 13 - 35 U/L 18 ALT 7 - 38 U/L 19 Glucose 74 - 99 mg/dL 87 BUN 7 - 21 mg/dL 8 Creatinine 0.58 - 0.96 mg/dL 0.54 (L) Sodium 136 - 144 mmol/L 139 Potassium 3.7 - 5.1 mmol/L 3.9 Chloride 98 - 10 (more content not included)...[facility] 10-28-2024 History of Present illness Narrative* Milton Cody MD - 10/28/2024 2:22 PM EDT Patient presents with: 4 week follow up HPI: Patient presents today for office visit for follow up. Has follow up with neurology and cardiology next week. Had eeg and attempted zio. Just sent in. No results yet. Just went out in mail on Sunday. Had mild symptoms while wearing. Reviewed her her findings thus far. She states in hind sight, she wonders if she has had occasional spells dating back for years. Will have spells where she is aware but feels like she is in a dream. Has almost a taylor vu experience. Last spells was in the last year but not recently. See below. Gi issues are stable. Has occasional discomfort in lower abdomen. Mild cramping on her right. Has pcos. She is unsure if related to that. No bowel or urinary issues No fever or chills. Is minimal and does not feel like it is anything that requires labs or imaging. Sees Dr Waller in a few weeks to remove the stents. Red flags for re-assessment reviewed with patient in detail. Note was copied and pasted, without alteration from last ov: HOSPITAL FOLLOW UP: Reason for visit: General illness. Sinus congestion. Which facility: [facility] Date of visit: 08/29/24-09/02/24 Diagnosis: RSV, cholecystitis. Testing done: x-ray, labs, CT scan, EKG, labs, us. White count was 13.5. bili was 4.4. elevated lft's. Treatment given: Cholecystectomy Had intrahepatic biliary duct dilatation. And stone in gallbladder neck. Has seen surgery. Had a drain. He has cleared her from his standpoint. Still needs to go back to see Dr Waller to get her stent removed. No jaundice or itching. No abd pain. No fever or chills. No cough. Had seen Crystal earlier this year and had zio and had a stress echo for tachycardia and epigastricdiscomfort in The stress was ok however the zio came back not having any readings. No syncope. No palpitations, no current chest pain or shortness of breath. Seen in ER and while tachycardia and EKG was noted to have a brugada pattern with a rate of 123. I do not have the actual EKG available. . While in the hospital and in or. No issues noted. Ecgs here have been ok. No known hx of cardiac issues. Her cousin had a heart attack at age 50 and thiswinter. Her dad had an mi in his 40's. They did not pursue work up of same while in the hospital. ? ?Had a seizure. Last Sun. Daughter was sleeping with her and woke up because her mother was making odd noises and tried to wake her up. September was shaking with tonic clonic movements and making loudvocalizations. After she became silent and was snoring very loudyly. She could not wake her up and let her sleep. Has an old fitbit that noted she was having tachycardia at the time. Just a few minutes in length. She woke up the next am and noted she was incontinent when this occurred. She did not go to the er. Was not taking any new meds etc. No loss of control of bowel. Was mildly achy the nextday. No hx of known seizures. She had a mild headache but has been ok the day before. No head injury . No hx of seizures etc. She is concerned because she was reading about brugada syndrome which can be associated with seizures. Discussed safety of not driving until worked up. Latest Ref Rng 10/03/2024 WBC 3.70 - 11.00 k/uL 7.20 RBC 3.90 - 5.20 m/uL 5.05 Hemoglobin 11.5 - 15.5 g/dL 13.7 Hematocrit 36.0 - 46.0 % 42.1 MCV 80.0 - 100.0 fL 83.4 MCH 26.0 - 34.0 pg 27.1 MCHC 30.5 - 36.0 g/dL 32.5 RDW-CV 11.5 - 15.0 % 12.9 Platelet Count 150 - 400 k/uL 309 MPV 9.0 - 12.7 fL 10.4 Neut% % 69.7 Abs Neut (ANC) 1.45 - 7.50 k/uL 5.02 Lymph% % 25.3 Abs Lymph 1.00 - 4.00 k/uL 1.82 Stanley% % 3.6 Abs Stanley <0.87 k/uL 0.26 Eosin% % 0.7 Abs Eosin <0.46 k/uL 0.05 Baso% % 0.4 Abs Baso <0.11 k/uL 0.03 Immature Gran % % 0.3 IMMATURE GRANS (ABS) <0.10 k/uL <0.03 NRBC /100 WBC 0.0 Absolute nRBC <0.01 k/uL <0.01 DTYPE Auto Color Yellow Yellow Clarity Clear Clear Glucose, Urine Negative Negative Bilirubin, Urine Negative Negative Ketones, Urine Negative Negative Specific [place], Ur 1.005 - 1.030 1.013 Hemoglobin/Blood,Ur Negative Negative pH, Urine <8.5 6.5 Protein, Urine Negative Negative Urobilinogen 0.2-1.0 EU/dL 0.2 EU/dL Nitrites Negative Negative Leukest Negative Negative WBC, Urine 0-5 /HPF 0-5 /HPF RBC, Urine 0-2 /HPF 0-2 /HPF Bacteria Negative /HPF Negative Epithelial Cells /HPF None Seen Hyaline Cast 0 /LPF 0 /LPF Protein, Total 6.3 - 8.0 g/dL 7.4 Albumin 3.9 - 4.9 g/dL 4.2 Calcium 8.5 - 10.2 mg/dL 9.1 Bilirubin, Total 0.2 - 1.3 mg/dL 0.7 Alkaline Phosphatase 34 - 123 U/L 71 AST 13 - 35 U/L 18 ALT 7 - 38 U/L 19 Glucose 74 - 99 mg/dL 87 BUN 7 - 21 mg/dL 8 Creatinine 0.58 - 0.96 mg/dL 0.54 (L) Sodium 136 - 144 mmol/L 139 Potassium 3.7 - 5.1 mmol/L 3.9 Chloride 98 - 107 mmol/L 103 CO2 22 - 30 mmol/L 26 Anion Gap 8 - 15 mmol/L 10 eGFR >=60 mL/min/1.73m 112 TSH 0.270 - 4.200 mIU/L 0.527 Culture <10,000 CFU/ml Normal urogenital tanya Legend: (L) Low Impression: This EEG shows evidence of potential epileptogenicity in the left frontotemporal region. There is bilateral cerebral dysfunction in the left more than right frontotemporal region. No definite EEG seizures were seen during this recording. MRI: IMPRESSION: No evidence of focal developmental or structural abnormality. Minimal nonspecific supratentorial white matter changes with differential provided above. MEDICATIONS: Current Outpatient Medications Medication Sig ARMOUR THYROID 60 mg Take 60 mg by mouth once daily. levothyroxine (SYNTHROID) 25 mcg tablet Take 25 mcg by mouth every other day. No current facility-administered medications for this visit. ALLERGIES: ALLERGIES Allergen Reactions Amoxicillin Hives Chlorhexidine Rash Pt had extensive rash and itching after receiving this as a skin preparation prior to C Section 08/06/07 Penicillins Hives PAST MEDICAL HISTORY Diagnosis Date Heel spur left foot menorrhagia PCOS (polycystic ovarian syndrome) Plantar fasciitis of left foot Thyroid nodule Tinea of nail 03/28/2018 03/28/18: [email or web address] PAST SURGICAL HISTORY Procedure Laterality Date DELIVERY ONLY , low cervical DELIVERY ONLY , low cervical DELIVERY ONLY , low transverse PAST SURGICAL HISTORY OF 2012 partial thyroidectomy TX MISSED FIRST TRIMESTER SURGICAL 01/12/06 missed US GUIDED THYROID BIOPSY 06/2012 FAMILY HISTORY Problem Relation Age of Onset Diabetes Father Heart Father TRIPLE BYPASS Cancer Father PANCREATIC Breast Cancer Maternal Grandmother Diabetes Maternal Grandmother Cancer Maternal Grandfather STOMACH CANCER Cancer Paternal Grandmother OVARIAN/UTERINE Heart Paternal Grandfather other (LUPUS) Maternal Aunt Cancer Other cousin (fa's side) melanoma dx 2006 Cancer Other GAUNT WITH BLADDER CANCCER other (Sjogren's Disease) Other Maternal cousin other (Brain Cancer) Other other (PCOS) Daughter other (PCOS) Other Paternal Cousin Social History Tobacco Use Smoking status: Never Smokeless tobacco: Never Vaping Use Vaping status: Never Used Substance Use Topics Alcohol use: No Drug use: No Reviewed current medications, allergies, past medical history, surgical history, family history andsocial history today. REVIEW OF SYSTEMS All other reviewed and negative other than HPI. VITALS: BP 128/80 Pulse 102 Resp 16 Wt 90.7 kg (200 lb) LMP 10/09/2024 (Exact Date) SpO2 99% BMI 36.58 kg/m Last 4 Encounter Wt Readings: Date: Wt: 10/28/2024 90.7 kg (200 lb) 10/03/2024 88.5 kg (195 lb) 08/29/2024 91.6 kg (202 lb) 07/26/2024 93.8 kg (206 lb 12.7 oz) PHYSICAL EXAMINATION: General appearance: Well appearing, alert, in no acute distress, well-hydrated, well nourished. Skin: Skin color, texture, turgor normal, no suspicious rashes or lesions Head: Normocephalic, no masses, lesions, tenderness or abnormalities Lungs: Lungs clear to auscultation. No wheezing, rhonchi, rales Heart: RRR without murmur, gallop, or rubs. No ectopy Abdomen: Normal abdominal exam, Abdomen soft, non-tender. Bowel sounds normal. No masses, organomegaly ASSESSMENT/PLAN: 1. 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 No driving. Follow with neurology and cardiology. Red flags for re- assessment reviewed with patient in detail. 2. Other migraine without status migrainosus, not intractable - ICD9: 346.80, ICD10: G43.809 - stable. Milton Cody MD [facility]25 NoteHNO ID: [id number] Author: ?, ?, ? Service: ? Author Type: LICENSED NURSE Type: Progress Notes Filed: 10/10/2024 15:46 Note Text: Patient presents for Zio monitor placement. Brought monitor with her. EVENT MONITOR DISPOSABLE PATCH INSTRUCTIONS Patient Name: Galilea [facility] Number: [id number] Skin prepped and cleansed with alcohol Patch secured to prepped area Monitor Activated Serial #: [id number] Patient Instructed: Prescribed order timeframe Bathing guidelines Usage of event button and diary documentation Return of monitor at the end of prescribed order Call with problems [phone] or [phone]. [phone] Patient expresses a good understanding of instructions [facility] History of Present illness Narrative* TIA HECK - 10/10/2024 3:45 PM EDT Patient presents for Zio monitor placement. Brought monitor with her. EVENT MONITOR DISPOSABLE PATCH INSTRUCTIONS Patient Name: Galilea Gucci [facility] Number: [id number] Skin prepped and cleansed with alcohol Patch secured to prepped area Monitor Activated Serial #: [id number] Patient Instructed: Prescribed order timeframe Bathing guidelines Usage of event button and diary documentation Return of monitor at the end of prescribed order Call with problems [phone] or [phone]. [phone] Patient expresses a good understanding of instructions Tia Heck LPN documented in this encounterOhio [facility]04-16-2025 Telephone encounter Note * Telephone Encounter - Milton Cody MD - 10/08/2024 9:49 AM EDT noted [facility]04-16-2025 Miscellaneous Notes* Telephone Encounter - Milton Cody MD - 10/08/2024 9:49 AM EDT noted * Telephone Encounter - Brock Ledezma RN - 10/08/2024 9:03 AM EDT Pt phoned with update for pcp: Reports pcp couldn't get her into cardiology until April. Pt scheduled appt with cardiology in [place] for tomorrow, but that bookkeeping machine mechanic reviewed her records and informed pt she needs to see an electrophysiology bookkeeping machine mechanic. Pt scheduled with electrophysiology bookkeeping machine mechanic in [place] on 11-07-24. Pt kept the appt with [place] in Feb, just in case. Pt is scheduled for EEG at [facility] tomorrow. Pt is scheduled with CT Nurse for Zio patch placement on Sunday10-10-24. Pt has the Zio patch. documented in this encounterOhio [facility]04-16-2025 Telephone encounter Note * Telephone Encounter - Brock Ledezma RN - 10/08/2024 9:03 AM EDT Pt phoned with update for pcp: Reports pcp couldn't get her into cardiology until April. Pt scheduled appt with cardiology in [place] for tomorrow, but that bookkeeping machine mechanic reviewed her records and informed pt she needs to see an electrophysiology bookkeeping machine mechanic. Pt scheduled with electrophysiology bookkeeping machine mechanic in [place] on 11-07-24. Pt kept the appt with T[place]ord in Feb, just in case. Pt is scheduled for EEG at [facility] tomorrow. Pt is scheduled with CT Nurse for Zio patch placement on Sunday10-10-24. Pt has the Zio patch. [facility]04-15-[facility] Telephone encounter Note* Telephone Encounter - Hemalatha Lord - 10/07/2024 1:31 PM EDT Patient advised by PCP to schedule with general cardiology as soon as possible for Brugada Syndrome. Patient not scheduled with electrophysiology bookkeeping machine mechanic until February. PSS scheduled patient with Dr. Harris for tomorrow, 10/08/24. Please notify patient she is able to be seen tomorrow or if needing to reschedule with another provider. [facility]04-15-[facility] Miscellaneous Notes* Telephone Encounter - Hemalatha Lord - 10/07/2024 1:31 PM EDT Patient advised by PCP to schedule with general cardiology as soon as possible for Brugada Syndrome. Patient not scheduled with electrophysiology bookkeeping machine mechanic until February. PSS scheduled patient with Dr. Harris for tomorrow, 10/08/24. Please notify patient she is able to be seen tomorrow or if needing to reschedule with another provider. documented in this encounterOhio [facility]04-14-2025 History of Present illness Narrative* Bing Hughes RT(R) - 10/06/2024 11:30 AM EDT Radiology Service Progress Note DATE OF SERVICE: October 06, 2024 TIME: 11:23 AM PATIENT IDENTITY VERIFICATION COMPLETED USING TWO (2) STANDARD IDENTIFIERS: Name and Date of confirmed by patient verbally. FALL SCREENING: Has the patient had 2 falls in the last year or 1 fall with injury or currently using an Ambulatory Assistive Device (Walker, Cane, Wheelchair, Crutches, etc.)? No PATIENT GENDER DATA: Assigned female at . status: : No status:NO. PATIENT RELEVANT IMPLANT DATA REVIEWED: Yes PATIENT PRESENTS WITH AN IMPLANTABLE OR ATTACHED CORRECTIONAL COOK: No ALLERGIES: Reviewed and unchanged CONTRAST ALLERGY: NO. EXAM: MRI - CONTRAST TYPE: GROUP II PERIPHERAL IV DATA: Ambulatory: A peripheral IV was started in the Right antecubital site with a Angio cath: 22 gauge. RADIOLOGY DEPARTMENT: MR; Exam(s) Completed: Head: Seizure SIGNATURE: RT Emmett(Raffi) PATIENT NAME: September Quan DATE: October 06, 2024 TIME: 11:23 AM documented in this encounterOhio State [facility]04-14-2025 NoteHNO ID: [id number] Author: BING HUGHES RT(R) Service: ? Author Type: Technologist Type: Progress Notes Filed: 10/06/2024 11:23 Note Text: Radiology Service Progress Note DATE OF SERVICE: October 06, 2024 TIME: 11:23 AM PATIENT IDENTITY VERIFICATION COMPLETED USING TWO (2) STANDARD IDENTIFIERS: Name and Date of confirmed by patient verbally. FALL SCREENING: Has the patient had 2 falls in the last year or 1 fall with injury or currently using an Ambulatory Assistive Device (Walker, Cane, Wheelchair, Crutches, etc.)? No PATIENT GENDER DATA: Assigned female at . status: : No status: NO. PATIENT RELEVANT IMPLANT DATA REVIEWED: Yes PATIENT PRESENTS WITH AN IMPLANTABLE OR ATTACHED CORRECTIONAL COOK: No ALLERGIES: Reviewed and unchanged CONTRAST ALLERGY: NO. EXAM: MRI - CONTRAST TYPE: GROUP II PERIPHERAL IV DATA: Ambulatory: A peripheral IV was started in the Right antecubital site with a Angio cath: 22 gauge. RADIOLOGY DEPARTMENT: MR; Exam(s) Completed: Head: Seizure SIGNATURE: RT Emmett(Raffi) PATIENT NAME: September Quan DATE: October 06, 2024 TIME: 11:23 [facility]04-11-2025 NoteHNO ID: [id number] Author: MILTON CODY MD Service: ? Author Type: Physician Type: Progress Notes Filed: 10/03/2024 12:14 Note Text: Patient presents with: Hospital F/U HPI: Patient presents today for office visit for hospital follow up. HOSPITAL FOLLOW UP: Reason for visit: General illness. Sinus congestion. Which facility: [facility] Date of visit: 08/29/24-09/02/24 Diagnosis: RSV, cholecystitis. Testing done: x-ray, labs, CT scan, EKG, labs, us. White count was 13.5. bili was 4.4. elevated lft's. Treatment given: Cholecystectomy Had intrahepatic biliary duct dilatation. And stone in gallbladder neck. Has seen surgery. Had a drain. He has cleared her from his standpoint. Still needs to go back to see Dr Friend to get her stent removed. No jaundice or itching. No abd pain. No fever or chills. No cough. Had seen Crystal earlier this year and had zio and had a stress echo for tachycardia and epigastric discomfort in The stress was ok however the zio came back not having any readings. No syncope. No palpitations, no current chest pain or shortness of breath. Seen in ER and while tachycardia and EKG was noted to have a brugada pattern with a rate of 123. I do not have the actual EKG available. . While in the hospital and in or. No issues noted. Ecgs here have been ok. No known hx of cardiac issues. Her cousin had a heart attack at age 50 and this winter. Her dad had an mi in his 40's. They did not pursue work up of same while in the hospital. ? ?Had a seizure. Last Sun. Daughter was sleeping with her and woke up because her mother was making odd noises and tried to wake her up. September was shaking with tonic clonic movements and making loud vocalizations. After she became silent and was snoring very loudyly. She could not wake her up and let her sleep. Has an old fitbit that noted she was having tachycardia at the time. Just a few minutes in length. She woke up the next am and noted she was incontinent when this occurred. She did not go to the er. Was not taking any new meds etc. No loss of control of bowel. Was mildly achy the next day. No hx of known seizures. She had a mild headache but has been ok the day before. No head injury. No hx of seizures etc. She is concerned because she was reading about brugada syndrome which can be associated with seizures. Discussed safety of not driving until worked up/. MEDICATIONS: Current Outpatient Medications Medication Sig ARMOUR THYROID 60 mg Take 60 mg by mouth once daily. levothyroxine (SYNTHROID) 25 mcg tablet Take 25 mcg by mouth every other day. No current facility-administered medications for this visit. ALLERGIES: ALLERGIES Allergen Reactions Amoxicillin Hives Chlorhexidine Rash Pt had extensive rash and itching after receiving this as a skin preparation prior to C Section 2/12/08 Penicillins Hives PAST MEDICAL HISTORY Diagnosis Date Heel spur left foot menorrhagia PCOS (polycystic ovarian syndrome) Plantar fasciitis of left foot Thyroid nodule Tinea of nail 03/28/2018 03/28/18: [email or web address] PAST SURGICAL HISTORY Procedure Laterality Date DELIVERY ONLY , low cervical DELIVERY ONLY , low cervical DELIVERY ONLY , low transverse PAST SURGICAL HISTORY OF 2012 partial thyroidectomy [place] MISSED FIRST TRIMESTER SURGICAL 01/12/06 missed US GUIDED THYROID BIOPSY 06/2012 FAMILY HISTORY Problem Relation Age of Onset Diabetes Father Heart Father TRIPLE BYPASS Cancer Father PANCREATIC Breast Cancer Maternal Grandmother Diabetes Maternal Grandmother Cancer Maternal Grandfather STOMACH CANCER Cancer Paternal Grandmother OVARIAN/UTERINE Heart Paternal Grandfather other (LUPUS) Maternal Aunt Cancer Other cousin (fa's side) melanoma dx 2006 Cancer Other GAUNT WITH BLADDER CANCCER other (Sjogren's Disease) Other Maternal cousin other (Brain Cancer) Other other (PCOS) Daughter other (PCOS) Other Paternal Cousin Social History Tobacco Use Smoking status: Never Smokeless tobacco: Never Vaping Use Vaping status: Never Used Substance Use Topics Alcohol use: No Drug use: No Reviewed current medications, allergies, past medical history, surgical history, family history and social history today. REVIEW OF SYSTEMS All other reviewed and negative other than HPI. VITALS: BP 160/84 Pulse 95 Ht 157.5 cm (5' 2) Wt 88.5 kg (195 lb) LMP 08/31/2024 (Exact Date) SpO2 99% BMI 35.67 kg/m? Last 4 Encounter Wt Readings: Date: Wt: 08/29/2024 91.6 kg (202 lb) 07/26/2024 93.8 kg (206 lb 12.7 oz) 12/24/2023 93.4 kg (206 lb) 12/22/2023 93.6 kg (206 lb 5.6 oz) PHYSICAL EXAMINATION: General appearance: Well appearing, alert, in no acute distress, well-hydrated, well nourished. Skin: Skin color, texture, turgor normal, no suspicious rashes or lesions Head: Normocephali (more content not included)...[facility] 10-03-2024 History of Present illness Narrative* Milton Cody MD - 10/03/2024 10:43 AM EDT Patient presents with: Hospital F/U HPI: Patient presents today for office visit for hospital follow up. HOSPITAL FOLLOW UP: Reason for visit: General illness. Sinus congestion. Which facility: [facility] Date of visit: 08/29/24-09/02/24 Diagnosis: RSV, cholecystitis. Testing done: x-ray, labs, CT scan, EKG, labs, us. White count was 13.5. bili was 4.4. elevated lft's. Treatment given: Cholecystectomy Had intrahepatic biliary duct dilatation. And stone in gallbladder neck. Has seen surgery. Had a drain. He has cleared her from his standpoint. Still needs to go back to see Dr Friend to get her stent removed. No jaundice or itching. No abd pain. No fever or chills. No cough. Had seen Crystal earlier this year and had zio and had a stress echo for tachycardia and epigastricdiscomfort in The stress was ok however the zio came back not having any readings. No syncope. No palpitations, no current chest pain or shortness of breath. Seen in ER and while tachycardia and EKG was noted to have a brugada pattern with a rate of 123. I do not have the actual EKG available. . While in the hospital and in or. No issues noted. Ecgs here have been ok. No known hx of cardiac issues. Her cousin had a heart attack at age 50 and thiswinter. Her dad had an mi in his 40's. They did not pursue work up of same while in the hospital. ? ?Had a seizure. Last Sun. Daughter was sleeping with her and woke up because her mother was making odd noises and tried to wake her up. September was shaking with tonic clonic movements and making loudvocalizations. After she became silent and was snoring very loudyly. She could not wake her up and let her sleep. Has an old fitbit that noted she was having tachycardia at the time. Just a few minutes in length. She woke up the next am and noted she was incontinent when this occurred. She did not go to the er. Was not taking any new meds etc. No loss of control of bowel. Was mildly achy the nextday. No hx of known seizures. She had a mild headache but has been ok the day before. No head injury . No hx of seizures etc. She is concerned because she was reading about brugada syndrome which can be associated with seizures. Discussed safety of not driving until worked up/. MEDICATIONS: Current Outpatient Medications Medication Sig ARMOUR THYROID 60 mg Take 60 mg by mouth once daily. levothyroxine (SYNTHROID) 25 mcg tablet Take 25 mcg by mouth every other day. No current facility-administered medications for this visit. ALLERGIES: ALLERGIES Allergen Reactions Amoxicillin Hives Chlorhexidine Rash Pt had extensive rash and itching after receiving this as a skin preparation prior to C Section 08/06/07 Penicillins Hives PAST MEDICAL HISTORY Diagnosis Date Heel spur left foot menorrhagia PCOS (polycystic ovarian syndrome) Plantar fasciitis of left foot Thyroid nodule Tinea of nail 03/28/2018 03/28/18: [email or web address] PAST SURGICAL HISTORY Procedure Laterality Date DELIVERY ONLY , low cervical DELIVERY ONLY , low cervical DELIVERY ONLY , low transverse PAST SURGICAL HISTORY OF 2012 partial thyroidectomy [place] MISSED FIRST TRIMESTER SURGICAL 01/12/06 missed US GUIDED THYROID BIOPSY 06/2012 FAMILY HISTORY Problem Relation Age of Onset Diabetes Father Heart Father TRIPLE BYPASS Cancer Father PANCREATIC Breast Cancer Maternal Grandmother Diabetes Maternal Grandmother Cancer Maternal Grandfather STOMACH CANCER Cancer Paternal Grandmother OVARIAN/UTERINE Heart Paternal Grandfather other (LUPUS) Maternal Aunt Cancer Other cousin (fa's side) melanoma dx 2006 Cancer Other GAUNT WITH BLADDER CANCCER other (Sjogren's Disease) Other Maternal cousin other (Brain Cancer) Other other (PCOS) Daughter other (PCOS) Other Paternal Cousin Social History Tobacco Use Smoking status: Never Smokeless tobacco: Never Vaping Use Vaping status: Never Used Substance Use Topics Alcohol use: No Drug use: No Reviewed current medications, allergies, past medical history, surgical history, family history andsocial history today. REVIEW OF SYSTEMS All other reviewed and negative other than HPI. VITALS: BP 160/84 Pulse 95 Ht 157.5 cm (5' 2) Wt 88.5 kg (195 lb) LMP 08/31/2024 (Exact Date) SpO2 99% BMI 35.67 kg/m Last 4 Encounter Wt Readings: Date: Wt: 08/29/2024 91.6 kg (202 lb) 07/26/2024 93.8 kg (206 lb 12.7 oz) 12/24/2023 93.4 kg (206 lb) 12/22/2023 93.6 kg (206 lb 5.6 oz) PHYSICAL EXAMINATION: General appearance: Well appearing, alert, in no acute distress, well-hydrated, well nourished. Skin: Skin color, texture, turgor normal, no suspicious rashes or lesions Head: Normocephalic, no masses, lesions, tenderness or abnormalities Eyes: Anicteric sclera. Pupils are equally round and reactive to light. Extraocular movements are intact. Neck: Supple, no adenopathy; thyroid symmetric, normal size, no bruits Lungs: Lungs clear to auscultation. No wheezing, rhonchi, rales Heart: RRR without murmur, gallop, or rubs. No ectopy Abdomen: Normal abdominal exam, Abdomen soft, non-tender. Bowel sounds normal. No masses, organomegaly Extremities: No deformities, edema, skin discoloration, clubbing or cyanosis. Good capillary refill. Musculoskeletal: No joint swelling, deformity, or tenderness Peripheral pulses: Normal Neuro: Gait normal. Reflexes normal and symmetric. Sensation grossly intact., Negative findings: speech normal, mental status intact, cranial nerves 2-12 intact, muscle tone normal, muscle strength normal ASSESSMENT/PLAN: 1. 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 See cardiology soon. Reattempt to do zio. No driving until cleared. Red flags for re-assessment reviewed with patient in detail. Reviewed reasons for er eval including recurrent seizure, syncope or near syncope, chest pain, palpitations etc. Close follow up. - CONSULT TO CARDIOLOGY - OUTSIDE VENDOR CARDIAC OUTPATIENT EXTENDED RHYTHM RECORDING (WITHOUT TELEMETRY) - CONSULT TO NEUROLOGY - ECG COMPLETE 2. Palpitations - ICD9: 785.1, ICD10: R00.2 - CONSULT TO CARDIOLOGY - OUTSIDE VENDOR CARDIAC OUTPATIENT EXTENDED RHYTHM RECORDING (WITHOUT TELEMETRY) - ECG COMPLETE-NSR. No acute changes. 3. Tachycardia - ICD9: 785.0, ICD10: R00.0 - CONSULT TO CARDIOLOGY - OUTSIDE VENDOR CARDIAC OUTPATIENT EXTENDED RHYTHM RECORDING (WITHOUT TELEMETRY) - ECG COMPLETE 4. Family history of cardiac disorder - ICD9: V17.49, ICD10: Z82.49 - CONSULT TO CARDIOLOGY - OUTSIDE VENDOR CARDIAC OUTPATIENT EXTENDED RHYTHM RECORDING (WITHOUT TELEMETRY) - ECG COMPLETE 5. Postoperative hypothyroidism - ICD9: 244.0, ICD10: E89.0 - recheck labs. - COMPLETE BLOOD COUNT AND DIFFERENTIAL - COMPREHENSIVE METABOLIC PANEL - THYROID STIMULATING HORMONE 6. Spell of abnormal behavior - ICD9: 780.99, ICD10: R46.89 - EPIL EEG ROUTINE- - CONSULT TO NEUROLOGY 7. Urinary incontinence, unspecified type - ICD9: 788.30, ICD10: R32 - URINALYSIS, WITH MICROSCOPIC - BACTERIAL CULTURE, URINE - EPIL EEG ROUTINE - CONSULT TO NEUROLOGY 8. Convulsions, unspecified convulsion type (HCC) - ICD9: 780.39, ICD10: R56.9 - EPIL EEG ROUTINE - MRI BRAIN WO/W IVCON - CONSULT TO NEUROLOGY 9. Cholecystitis - ICD9: 575.10, ICD10: K81.9 - doing well. See Dr Waller when due. 10. RSV (acute bronchiolitis due to respiratory syncytial virus) - ICD9: 466.11, ICD10: J21.0 - resolved. Will see if we can get the actual EKG from [facility] Milton Cody MD RTO in three to four weeks. [facility] NoteHNO ID: [id number] Author: NADIA HU MD Service: ? Author Type: Physician Type: Procedures Filed: 10/31/2024 17:19 Note Text: Patient Name: Galilea Glass : 1975 Ordering Provider: Milton Cody Indication: I49.8 Other specified cardiac arrhythmias Type of Monitor: Extended Monitoring-Zio Patch Enrollment Dates: 10/10/2024-10/24/2024 IRHYTHM FINDINGS: Patient had a min HR of 52 bpm, max HR of 162 bpm, and avg HR of 88 bpm. Predominant underlying rhythm was Sinus Rhythm. Isolated SVEs were rare (<1.0%), and no SVE Couplets or SVE Triplets were present. Isolated VEs were rare (<1.0%), and no VE Couplets or VE Triplets were present.[facility]04-04-2025 Telephone encounter Note* Telephone Encounter - Aron Jacob LPN - 09/26/2024 9:45 AM EDT Phoned pt, notified of provider response. Hospital f/u scheduled on 10/03 @ 11am with PCP. Advised pt could discuss need for another Zio and place at appt if needed. Aron Jacob LPN [facility]04-04-2025 Miscellaneous Notes* Telephone Encounter - Aron Jacob LPN - 09/26/2024 9:45 AM EDT Phoned pt, notified of provider response. Hospital f/u scheduled on 10/03 @ 11am with PCP. Advised pt could discuss need for another Zio and place at appt if needed. Aron Jacob LPN * Telephone Encounter - Crystal Valentine APRN.MAGDALENA - 09/26/2024 9:29 AM EDT Please let patient know. It looks like the last one was mailed to her. I would recommend coming in and having us place the new one. Crystal Valentine APRN.MAGDALENA * Telephone Encounter - Aron Jacob LPN - 09/26/2024 9:24 AM EDT Phoned [employer] [phone]. Spoke /c rep who stated they received monitor on 08/14/24 and it did not have any data available. Rep states it's possible the monitor was not activated when placed. Pt will need re patched. Aron Jacob LPN * Telephone Encounter - Milton Cody MD - 09/25/2024 9:58 AM EDT See if we can see what is going on with test * Telephone Encounter - Brock Ledezma RN - 09/25/2024 9:52 AM EDT Pt reports she wore a Zio monitor for about 3 weeks. Placed in office on 07/22/24. Asking if provider ever received those results b/c no one has called her with those results. States she hasn't thought about it until now b/c she has had a lot going on in the last few months with her health. Reports she had her gallbladder removed on 08/31/24 at [facility], and has been following upwith surgeon on this. Has appt tomorrow with surgeon to remove a mesh that was placed during the surgery. Please advise patient. [facility] Telephone encounter Note * Telephone Encounter - Crystal Valentine APRN.MAGDALENA - 09/26/2024 9:29 AM EDT Please let patient know. It looks like the last one was mailed to her. I would recommend coming in and having us place the new one. Crystal Valentine APRN.CORPORATE REPRESENTATIVE [facility] Work Phone: 1(699) 875-194404-04-2025 Telephone encounter Note* Telephone Encounter - Aron Jacob LPN - 09/26/2024 9:24 AM EDT Phoned [employer] [phone]. Spoke /c rep who stated they received monitor on 08/14/24 and it did not have any data available. Rep states it's possible the monitor was not activated when placed. Pt will need re patched. Aron Jacob LPN [facility]04-03-2025 Telephone encounter Note* Telephone Encounter - Milton Cody MD - 09/25/2024 9:58 AM EDT See if we can see what is going on with test [facility]04-03-[facility] Telephone encounter Note* Telephone Encounter - Brock Ledezma RN - 09/25/2024 9:52 AM EDT Pt reports she wore a Zio monitor for about 3 weeks. Placed in office on 07/22/24. Asking if provider ever received those results b/c no one has called her with those results. States she hasn't thought about it until now b/c she has had a lot going on in the last few months with her health. Reports she had her gallbladder removed on 08/31/24 at [facility], and has been following upwith surgeon on this. Has appt tomorrow with surgeon to remove a mesh that was placed during the surgery. Please advise patient. T [facility]04-01-[facility]25 Consult note Author Gumaro Rivera [facility] Note Date/Time November 10, 2024 1:19p [facility] Medical Records Department [address] [place] [address] Anesthesia Postop Eval I 11/10/24 1319 MR#: [id number] Acct: [id number] Name: GALILEA GLASS Rep #:[id number] : 1975 49 From: Gumaro ROE PCP: Dr. Milton Cody MD Status:REG S DC Y Race: C Location: [place] [address] Anesthesia: Postop Eval I Current Vital Signs Temperature: 97.6 F Pulse Rate: 89 Blood Pressure: 117/90 Respiratory Rate: 16 Pulse Ox: 98 Oxygen Delivery Method: Room Air Assessment Airway patent: Yes Spontaneous unlabored respirations: Yes Mental status: Awake and Calm nausea: No Vomiting: No Anesthesia Complication: No Fluid Hydration Crystalloid volume administer (ml): 500 Total IV fluid infused: 500 Progress Note Anesthesia document: Postop Eval 1 completed: Yes 11/10/24 1319 <Electronically signed by Gumaro Rivera GENERATION TECHNICIAN> Date _ Gumaro Rivera GENERATION TECHNICIAN Cosigner Signature: Date CC: ~ Signed [facility] Work Phone: 1(265) 134-795204-01-2025 Consult note Author Ruy gayle [facility] Note Date/Time November 10, 2024 1:21p [facility] Medical Records Department [address] [place] [address] Anesthesia Postop Eval II 11/10/24 1321 MR#: [id number] Acct: [id number] Name: GALILEA GLASS Rep #:[id number] : 1975 49 From: Ruy Gallagher MD PCP: Dr. Milton Cody MD Status:REG S DC Y Race: C Location: [place] [address] Anesthesia Postop Eval I Sum Postop Eval Completion status Anesthesia document: Postop Eval 1 completed: Yes Anesthesia Postop Eval I Summary Anesthesia Postop Eval I Summary: Anesthesia Postop Eval I: Assessment Summary Airway patent Yes 11/10/24 13:19 GENERATION TECHNICIAN.SOBR Spontaneous unlabored Yes 11/10/24 13:19 GENERATION TECHNICIAN.SOBR respirations Mental status Awake,Calm 11/10/24 13:19 GENERATION TECHNICIAN.SOBR nausea No 11/10/24 13:19 GENERATION TECHNICIAN.SOBR Vomiting No 11/10/24 13:19 GENERATION TECHNICIAN.SOBR Anesthesia Postop Eval I: Fluid Summary Crystalloid volume administer 500 11/10/24 13:19 GENERATION TECHNICIAN.SOBR (ml) Colloids volume administered ( ml) Blood Product volume administered (ml) Total IV fluid infused 500 11/10/24 13:19 GENERATION TECHNICIAN.SOBR Anesthesia Postop Eval I: Summary Notes Anesthesia Complication No 11/10/24 13:19 GENERATION TECHNICIAN.SOBR Anesthesia Complication Comment: Post-operative progress note Anesthesia: Postop Eval II Evaluation Mental status: Awake Pain Level: 0 nausea: No Vomiting: No 11/10/24 1321 <Electronically signed by Ruy Gallagher MD > Date _ Ruy Gallagher MD Cosigner Signature: Date CC: ~ Signed [facility] Work Phone: 1(367) 665-432303-26-2025 Nuclear medicine Diagnostic study note [facility] Imaging Services [address] [place] [address] Hepatobilliary Imaging MR#: [id number] Acct: [id number] Name: GALILEA GLASS Rep #: [id number] : 1975 F 49 From: Ifeanyi South MD PCP: Dr. Milton Cody MD Status: CHEN LYN Study:Hepatobilliary Imaging Date of Exam: 09/17/24 Exam# [id number] Ordering Dr: Brigitte Burgos MD EXAM: Hepatobiliary scan. CLINICAL HISTORY: Status post laparoscopic cholecystectomy on August 31, 2024. Patient had had acute gangrenous cholecystitis. Patient still has surgical drain in place. Patient is also status post liver biopsy showing benign adenoma. Still hassome mild persistent discomfort which is diminishing. COMPARISON: Intraoperative cholangiogram of August 31, 2024 shows small cystic duct remnant.. TECHNIQUE: See below. FINDINGS: Patient was injected intravenously with 5.6 mCi of 99 technetium mebrofenin. Anterior dynamic 62nd composite images were obtained every minute up to 60 minutes post injection. There is normal uptake of the hepatobiliary lesion by the liver. Gallbladder activity is absent. Common bile duct visualized is progressively from 15 minutes onwards. Activity is seen in the small bowel by 23 minutes. No extraneous activity is identified. NM/Hepatobilliary Imaging IMPRESSION: No evidence of postoperative biliary leak. Reading Location: [facility] CC: Dr. Deacon Burgos MD; Dr. Milton Cody MD ~ Lunchroom Mother: Signed [facility]03-11-2025 Consult note [facility] Medical Records Department [address] [place] [address] Counseling Note - Pharmacy 09/02/24 1207 MR#: [id number] Acct: [id number] Name: GALILEA Glass Rep #:[id number] : 1975 48 From: Tyler Caba PCP: Dr. Milton Cody MD Status:ADM I N Y Location: [place] [address] Pharmacy [facility] has performed discharge medication reconciliation and counseling for this patient. The patient's discharge medication list was reviewed for discrepancies and discrepancies were resolved. The patient was counseled on the following discharge medications and changes in medications for homegoing were reviewed. The Reason for Use, instructions for use, and potential side effects were reviewed for all new medications. The patient's questions regarding all of their medications were answered. 1. Levofloxacin 750 mg PO daily x 6 days 2. Acetaminophen 1000 mg PO Q8 The patient was able to verbally demonstrate an understanding of their dischargemedications. Medications at Discharge Home Medications thyroid (pork) 60 mg tablet ([place] Thyroid) 60 mg PO DAILY 08/23/20 cholecalciferol (vitamin D3) 1 tab PO DAILY 08/29/24 levothyroxine 25 mcg tablet 25 mcg PO SUTUWETHSA 08/29/24 magnesium citrate 125 mg capsule 250 mg PO QHS 08/29/24 metformin 500 mg tablet 500 mg PO DAILY 08/29/24 acetaminophen 500 mg tablet 1,000 mg (2 x 500 mg) PO Q8 #0 tabs 09/02/24 levofloxacin 750 mg tablet 750 mg PO DAILY 6 days #6 tabs 09/02/24 09/02/24 1207 r> Date _ Tyler Ramirez Signature (if applicable): Date CC: ~ Signed [facility]03-11-2025 Consult note Author Tyler Caba [facility] Note Date/Time September 02, 2024 2:0 7pm [facility] Medical Records Department [address] [place] [address] Counseling Note - Pharmacy 09/02/24 1207 MR#: [id number] Acct: [id number] Name: GALILEA Glass Rep #:[id number] : 1975 48 From: Tyler Caba PCP: Dr. Milton Cody MD Status:ADM I N Y Location: [place] [address] Pharmacy [facility] has performed discharge medication reconciliation and counseling for this patient. The patient's discharge medication list was reviewed for discrepancies and discrepancies were resolved. The patient was counseled on the following discharge medications and changes in medications for homegoing were reviewed. The Reason for Use, instructions for use, and potential side effects were reviewed for all new medications. The patient's questions regarding all of their medications were answered. 1. Levofloxacin 750 mg PO daily x 6 days 2. Acetaminophen 1000 mg PO Q8 The patient was able to verbally demonstrate an understanding of their dischargemedications. Medications at Discharge Home Medications thyroid (pork) 60 mg tablet ([place] Thyroid) 60 mg PO DAILY 08/23/20 cholecalciferol (vitamin D3) 1 tab PO DAILY 08/29/24 levothyroxine 25 mcg tablet 25 mcg PO SUTUWETHSA 08/29/24 magnesium citrate 125 mg capsule 250 mg PO QHS 08/29/24 metformin 500 mg tablet 500 mg PO DAILY 08/29/24 acetaminophen 500 mg tablet 1,000 mg (2 x 500 mg) PO Q8 #0 tabs 09/02/24 levofloxacin 750 mg tablet 750 mg PO DAILY 6 days #6 tabs 09/02/24 09/02/24 1207 <Electronically signed by Tyler bay> Date _ Tyler Caba Cosigner Signature (if applicable): Date CC: ~ Signed [facility] Work Phone: [phone]) 872-805303-11-2025 Discharge summary Author Spencer La [facility] Note Date/Time September 02, 2024 11: 06am [facility] Medical Records Department [address] [place] [address] Instructions for Home/Discharge Instructions 09/02/24 1104 MR#: [id number] Acct: [id number] Name: GALILEA Glass Rep #:[id number] : 1975 48 From: Spencer barragan DO PCP: Dr. Milton Cody MD Status:ADM I N Discharge Instructions Diet Discharge Diet: Low fat / Low cholesterol DC O2, CPAP, BIPAP needs Home O2 Discharge instructions: No Dressing / Incision Call your doctor if your incision/area has: Continuous Slow Oozing, Sudden Increased Bleeding, Increased Pain/ Swelling, Increased Redness, Foul Smelling Discharge and Swelling at the incision site Call your doctor if you observe: Fever of 101 or Higher Suture Line Care: Avoid Pulling/Pushing and Avoid Pinching/Bending Cleanse incision/area with: Soap & Water Additional Dressing/Incision Instructions:: You may use a sandwich ziploc bag, cut one side, open the bag and secure it over the drain site before showering. Keep a record of output from HERBERT drain and record it on a sheet daily. Write the amount of drainage, date, time and color of the drainage emptied from the drain. Bring record sheet with you to your appointment. Follow Up Care Please Follow Up With: Deacon Burgos MD Test Results: Test results from this visit will be discussed in further detail at your follow- up appointment, if applicable. Discharge Plan Admission Admit Date/Time: 08/29/24 18:22 Primary Reason for Your Visit: Choledocholithiasis Attending Provider: Spencer La Primary Care Provider: Milton Cody Consulting Providers: Deacon Burgos; Spencer La; Jonathan Plata Instructions Additional Instructions / Restrictions: Cholecystectomy Diet ? Start light with soups, soft bland foods, and low fat foods. You may advance diet as tolerated. Activity ? You may drive in 3-5 days but not while taking narcotic pain medication. ? I encourage walking. You may go up steps, one at a time. ? Do not swim or use hot tubs for 2 weeks. ? For comfort, you may use warm compresses or ice as needed for 15-20 minutes chris time. Lifting ? You may lift up to 15 pounds for 2 weeks. Dressings/Incision ? You may shower OVER your plastic dressings ? Do NOT tub bathe ? Leave plastic dressings on for 1 day. ? When plastic dressings are removed, you will find steri strips. It is okay to continue showering with them in place, pat them dry. ? You may remove steri-strips after 1 week. We recommend getting them soaking wet for easier removal. - You may use a sandwich ziploc bag, cut one side, open the bag and secure it over the drain site before showering. - Keep a record of output from HERBERT drain and record it on a sheet daily. Write the amount of drainage, date, time and color of the drainage emptied from the drain. - Bring record sheet with you to your appointment. Medications ? Anesthesia used during surgery and pain medications may cause constipation. I recommend initiating on the day of surgery a fiber supplement like, Metamucil, Citrucel, FiberCon, Benefiber, or a generic form of these medications. 1 heapingtablespoon in water daily. You may continue to utilize any bowel regimen or orallaxatives that you routinely take. ? As long as you are not intolerant to Tylenol, acetaminophen, ibuprofen, Motrin, Advil, Aleve, or similar medications, I would recommend transitioning tothese [id number] medicines as soon as possible instead of continued use ofnarcotic pain medication. Follow up ? You should call [facility] soon after surgery, at [phone] option 2 to make a follow up appointment for 7 days after your surgery. Discharge Orders/Prescriptions Prescriptions: New acetaminophen 500 mg Tablet 1,000 mg PO Q8 Qty: 0 0RF levofloxacin 750 mg Tablet 750 mg PO DAILY 6 Days Qty: 6 0RF Continued thyroid (pork) [[place] Thyroid] 60 mg tablet 60 mg PO DAILY levothyroxine 25 mcg tablet 25 mcg PO SUTUWETHSA Patient Comments: [NO ORIGINAL SIG] metformin 500 mg tablet 500 mg PO DAILY Patient Comments: PT STATES SHE DOES NOT TAKE THIS EVERY DAY cholecalciferol (vitamin D3) 1 tab PO DAILY Patient Comments: PT NOT SURE OF STRENGTH magnesium citrate 125 mg capsule 250 mg PO QHS Referrals / Follow Up: Deacon Burgos MD [Med Staff - Active Staff] - Milton Cody MD [Primary Care Provider] - Disposition Disposition (needs filled in before D/C Order can be placed): Home, Self Care 09/02/24 1106<Electronically signed by Spencer La DO>Spencer La DO CC: Dr. Spencer La DO; Dr. Jonathan Plata MD; Dr. Deacon Burgos MD; Dr. Milton Cody MD ~ Signed [facility] Work Phone: 1(630) [phone] Discharge summary Author [facility] Note Date/Time September 02, 2024 10: 43[facility] Medical Records Department [address] [place] [address] Instructions for Home/Discharge Instructions 09/02/24 1015 MR#: [id number] Acct: [id number] Name: GALILEA Glass Rep #:[id number] : 1975 48 From: Melani MAGDALENO PA-C PCP: Dr. Milton Cody MD Status:ADM I N Discharge Instructions Diet Discharge Diet: Low fat / Low cholesterol DC O2, CPAP, BIPAP needs Home O2 Discharge instructions: No Dressing / Incision Discharge Activity: May Not Drive (3-5 days or while taking narcotic pain medication), May Shower and - (No tub bathing for 2 weeks) Lifting Restrictions: 15 pounds for 2 weeks Dressing / Incision Call your doctor if your incision/area has: Continuous Slow Oozing, Sudden Increased Bleeding, Increased Pain/ Swelling, Increased Redness, Foul Smelling Discharge and Swelling at the incision site Call your doctor if you observe: Fever of 101 or Higher Suture Line Care: Avoid Pulling/Pushing and Avoid Pinching/Bending Change Dressing in: 1 day Cleanse incision/area with: Soap & Water Additional Dressing/Incision Instructions:: You may use a sandwich ziploc bag, cut one side, open the bag and secure it over the drain site before showering. Keep a record of output from HERBERT drain and record it on a sheet daily. Write the amount of drainage, date, time and color of the drainage emptied from the drain. Bring record sheet with you to your appointment. Follow Up Care Please Follow Up With: Deacon Burgos MD When: Please contact our office to schedule a 1 week follow-up with Dr. Burgos [phone], option #2 Test Results: Test results from this visit will be discussed in further detail at your follow- up appointment, if applicable. Discharge Plan Admission Admit Date/Time: 08/29/24 18:22 Primary Reason for Your Visit: Choledocholithiasis Attending Provider: Spencer La Primary Care Provider: Milton Cody Consulting Providers: Deacon Burgos; Spencer La; Jonathan Plata Instructions Additional Instructions / Restrictions: Cholecystectomy Diet ? Start light with soups, soft bland foods, and low fat foods. You may advance diet as tolerated. Activity ? You may drive in 3-5 days but not while taking narcotic pain medication. ? I encourage walking. You may go up steps, one at a time. ? Do not swim or use hot tubs for 2 weeks. ? For comfort, you may use warm compresses or ice as needed for 15-20 minutes chris time. Lifting ? You may lift up to 15 pounds for 2 weeks. Dressings/Incision ? You may shower OVER your plastic dressings ? Do NOT tub bathe ? Leave plastic dressings on for 1 day. ? When plastic dressings are removed, you will find steri strips. It is okay to continue showering with them in place, pat them dry. ? You may remove steri-strips after 1 week. We recommend getting them soaking wet for easier removal. - You may use a sandwich ziploc bag, cut one side, open the bag and secure it over the drain site before showering. - Keep a record of output from HERBERT drain and record it on a sheet daily. Write the amount of drainage, date, time and color of the drainage emptied from the drain. - Bring record sheet with you to your appointment. Medications ? Anesthesia used during surgery and pain medications may cause constipation. I recommend initiating on the day of surgery a fiber supplement like, Metamucil, Citrucel, FiberCon, Benefiber, or a generic form of these medications. 1 heapingtablespoon in water daily. You may continue to utilize any bowel regimen or orallaxatives that you routinely take. ? As long as you are not intolerant to Tylenol, acetaminophen, ibuprofen, Motrin, Advil, Aleve, or similar medications, I would recommend transitioning tothese [id number] medicines as soon as possible instead of continued use ofnarcotic pain medication. Follow up ? You should call [facility] soon after surgery, at [phone] option 2 to make a follow up appointment for 7 days after your surgery. Discharge Orders/Prescriptions Prescriptions: New acetaminophen 500 mg Tablet 1,000 mg PO Q8 Qty: 0 0RF levofloxacin 750 mg Tablet 750 mg PO DAILY 6 Days Qty: 6 0RF No Action thyroid (pork) [[place] Thyroid] 60 mg tablet 60 mg PO DAILY levothyroxine 25 mcg tablet 25 mcg PO SUTUWETHSA Patient Comments: [NO ORIGINAL SIG] metformin 500 mg tablet 500 mg PO DAILY Patient Comments: PT STATES SHE DOES NOT TAKE THIS EVERY DAY cholecalciferol (vitamin D3) 1 tab PO DAILY Patient Comments: PT NOT SURE OF STRENGTH magnesium citrate 125 mg capsule 250 mg PO QHS Referrals / Follow Up: Milton Cody MD [Primary Care Provider] - 09/02/24 1043<Electronically signed by Melani MAGDALENO PA-C>Melani MAGDALENO PA-C CC: Dr. Spencer La DO; Dr. Jonathan Plata MD; Dr. Deacon Burgos MD; Dr. Milton Cody MD ~ Signed [facility] Work Phone: [phone] 170-723303-11-2025 Progress note Author Melani Lopez [facility] Note Date/Time September 02, 2024 10: 13am [facility] Medical Records Department [address] [place] [address] Progress Note - Surgery 09/02/24 1002 MR#: [id number] Acct: [id number] Name: GALILEA Glass Rep #:[id number] : 1975 48 From: Melani MAGDALENO PA-C PCP: Dr. Milton Cody MD Status:ADM I N Location: [place] [address] Subjective Subjective Patient evaluated resting comfortably in bed. She notes feeling a little more rested. She notes discomfort at the HERBERT drain site and minmal tenderness at the incision sites. She notes tolerating regular diet. Objective Data Objective Data Vital Signs: Vital Signs Temp Pulse Resp BP Pulse Ox O2 Del Method 98.4 F 69 16 124/82 H 96 Room Air 09/02/24 07:55 09/02/24 07:55 09/02/24 07:55 09/02/24 07:55 09/02/24 07:55 09/02/24 07:55 Oxygen Delivery Method Room Air Weight: 203 lb 7.787 oz Body Mass Index (BMI) 37.2 Intake & Output: Intake and Output for Last 24 Hours 09/01/24 09/01/24 09/02/24 00:59 23:59 23:59 Intake Total 375 / 824 836.0768 / 1253.3333 450 / 450 Output Total 29 / 29 35 / 35 Balance 346 / 177 385.6752 / 1218.3333 440 / 440 Lab / Micro Data 09/02/24 05:49 09/02/24 05:49 Labs: Laboratory Results - last 24 hr 09/02/24 05:49: WBC 5.7, RBC 3.93 L, Hgb 10.8 L, Hct 32.1 L, MCV 81.7, MCH 27.5,MCHC 33.6, RDW Std Deviation 39.5, RDW Coeff of Fabio 13.2, Plt Count 202, MPV 10.4, Immature Gran % (Auto) 0.700, Neut % (Auto) 73.5 H, Lymph % (Auto) 16.0 L,Stanley % (Auto) 7.5, Eos % (Auto) 1.9, Baso % (Auto) 0.4, Absolute Neuts (auto) 4.2, Absolute Lymphs (auto) 0.91, Nucleated RBC % 0, Sodium 137, Potassium 3.6, Chloride 105, Carbon Dioxide 21.2, Anion Gap 10, BUN 6, Creatinine 0.46 L, EstimCreat Clear Calc 154.71, Est GFR (MDRD) Non-Af 117, BUN/Creatinine Ratio 12.3, Glucose 93, Calcium 7.9, Total Bilirubin 1.14, Direct Bilirubin 0.89 H, AST 48 H, ALT 155 H, Alkaline Phosphatase 133 H, Total Protein 5.7 L, Albumin 2.9 L, Globulin 2.8 Micro: Microbiology 08/29/24 15:40 Blood Culture (Wb) - Venous Blood Culture - Final GNR lactose sanforizer 08/29/24 15:11 Blood Culture (Wb) - Venous Blood Culture - Final Klebsiella pneumoniae sp pneum 08/29/24 16:26 Urine, Clean Catch Urine Culture - Final Mixed Gram Pos & Gram Neg Org 08/29/24 13:50 Mucosa - Nose SARS-CoV-2, Influenza & RSV (PCR) - Final RSV Physical Exam GI GI Narrative: Abdomen- HERBERT drain intact with cloudy serous and bloody fluid noted. Incisions c/d/i. No erythema or infection noted. Assessment & Plan Assessment/Plan (1) Choledocholithiasis: (2) Cholelithiasis: (3) Obstructive jaundice: (4) Ascending cholangitis: (5) Hepatic lesion: PLAN: Plan I am following this patient in conjunction with Dr. Burgos. He has independently evaluated this patient. Labs reviewed. HERBERT drain will remain intact at discharge Patient is ready for discharge from a surgical standpoint Discharge instructions are complete Follow-up with Dr. Burgos in 1 week Charges/Coding Visit Charges Inpatient E&M: 59058 Subs Hosp L1 (post-op; no charge) 09/02/24 1013 <Electronically signed by Melani MAGDALENO PA-C> Cosigner Signature (if applicable): CC: ~ Signed [facility] Work Phone: 1(933) 232-321303-11-2025 Discharge summary [facility] Medical Records Department [address] [place] [address] Instructions for Home/Discharge Instructions 09/02/24 1104 MR#: [id number] Acct: [id number] Name: GALILEA Glass Rep #:[id number] : 1975 48 From: Spencer barragan DO PCP: Dr. Milton Cody MD Status:ADM I N Discharge Instructions Diet Discharge Diet: Low fat / Low cholesterol DC O2, CPAP, BIPAP needs Home O2 Discharge instructions: No Dressing / Incision Call your doctor if your incision/area has: Continuous Slow Oozing, Sudden Increased Bleeding, Increased Pain/ Swelling, Increased Redness, Foul Smelling Discharge and Swelling at the incision site Call your doctor if you observe: Fever of 101 or Higher Suture Line Care: Avoid Pulling/Pushing and Avoid Pinching/Bending Cleanse incision/area with: Soap & Water Additional Dressing/Incision Instructions:: You may use a sandwich ziploc bag, cut one side, open the bag and secure it over the drain site before showering. Keep a record of output from HERBERT drain and record it on a sheet daily. Write the amount of drainage,date, time and color of the drainage emptied from the drain. Bring record sheet with you to your appointment. Follow Up Care Please Follow Up With: Deacon Burgos MD Test Results: Test results from this visit will be discussed in further detail at your follow- up appointment, if applicable. Discharge Plan Admission Admit Date/Time: 08/29/24 18:22 Primary Reason for Your Visit: Choledocholithiasis Attending Provider: Spencer La Primary Care Provider: Milton Cody Consulting Providers: Deacon Burgos; Spencer La; Jonathan Plata Instructions Additional Instructions / Restrictions: Cholecystectomy Diet ? Start light with soups, soft bland foods, and low fat foods. You may advance diet as tolerated. Activity ? You may drive in 3-5 days but not while taking narcotic pain medication. ? I encourage walking. You may go up steps, one at a time. ? Do not swim or use hot tubs for 2 weeks. ? For comfort, you may use warm compresses or ice as needed for 15-20 minutes chris time. Lifting ? You may lift up to 15 pounds for 2 weeks. Dressings/Incision ? You may shower OVER your plastic dressings ? Do NOT tub bathe ? Leave plastic dressings on for 1 day. ? When plastic dressings are removed, you will find steri strips. It is okay to continue showering with them in place, pat them dry. ? You may remove steri-strips after 1 week. We recommend getting them soaking wet for easier removal. - You may use a sandwich ziploc bag, cut one side, open the bag and secure it over the drain site before showering. - Keep a record of output from HERBERT drain and record it on a sheet daily. Write the amount of drainage, date, time and color of the drainage emptied from the drain. - Bring record sheet with you to your appointment. Medications ? Anesthesia used during surgery and pain medications may cause constipation. I recommend initiating on the day of surgery a fiber supplement like, Metamucil, Citrucel, FiberCon, Benefiber, or a generic form of these medications. 1 heapingtablespoon in water daily. You may continue to utilize any bowel regimen or orallaxatives that you routinely take. ? As long as you are not intolerant to Tylenol, acetaminophen, ibuprofen, Motrin, Advil, Aleve, or similar medications, I would recommend transitioning tothese ganf-kak-lwkabez medicines as soon as possible instead of continued use ofnarcotic pain medication. Follow up ? You should call [facility] soon after surgery, at [phone] option 2 to make a follow up appointment for 7 days after your surgery. Discharge Orders/Prescriptions Prescriptions: New acetaminophen 500 mg Tablet 1,000 mg PO Q8 Qty: 0 0RF levofloxacin 750 mg Tablet 750 mg PO DAILY 6 Days Qty: 6 0RF Continued thyroid (pork) [[place] Thyroid] 60 mg tablet 60 mg PO DAILY levothyroxine 25 mcg tablet 25 mcg PO SUTUWETHSA Patient Comments: [NO ORIGINAL SIG] metformin 500 mg tablet 500 mg PO DAILY Patient Comments: PT STATES SHE DOES NOT TAKE THIS EVERY DAY cholecalciferol (vitamin D3) 1 tab PO DAILY Patient Comments: PT NOT SURE OF STRENGTH magnesium citrate 125 mg capsule 250 mg PO QHS Referrals / Follow Up: Deacon Burgos MD [Med Staff - Active Staff] - Milton Cody MD [Primary Care Provider] - Disposition Disposition (needs filled in before D/C Order can be placed): Home, Self Care 09/02/24 1106Agiovani La DO CC: Dr. Spencer La DO; Dr. Jonathan Plata MD; Dr. Deacon Burgos MD; Dr. Milton Cody MD ~ Signed [facility]03-11-2025 [facility] Medical Records Department [address] [facility] [place] [address] Discharge Summary 09/02/24 1105 MR#: [id number] Acct: [id number] Name: GALILEA Glass Rep #: [id number] : 1975 48 From: Spencer La DO PCP: Dr. Milton Cody MD Status:DIS IN Location: [place] [address] Providers Date of Admission: 08/29/24 Date of Discharge: 09/02/24 Primary Care Physician: Dr. Milton Cody MD Consultations 08/29/24 23:53 Consult: Gastroenterology Routine Consulting Provider: [facility] Reason for Consult: Choledocholithiasis EMERGENT Consult: No MD Notified: Yes Date Notified: 08/30/24 Time Notified: 06:53 Method of Notification: Text Consult: General Surgery Routine Consulting Provider: Deacon Burgos Reason for Consult: Choledocholithiasis EMERGENT Consult: No Notified: Yes Date Notified: 08/30/24 Time Notified: 06:54 Method of Notification: Text Reason For Visit: CHOLEDOCHOLELITHIASIS W/SUSPECTED CHOLANGITIS Diagnosis Discharge Diagnosis (1) Choledocholithiasis: Status: Acute Code(s): K80.50 - Calculus of bile duct without cholangitis or cholecystitis without obstruction (2) Cholelithiasis: Status: Acute Code(s): K80.20 - Calculus of gallbladder without cholecystitis without obstruction (3) Obstructive jaundice: Status: Acute Code(s): K83.1 - Obstruction of bile duct (4) Ascending cholangitis: Status: Acute Code(s): K83.09 - Other cholangitis (5) Hepatic lesion: Status: Acute Code(s): K76.9 - Liver disease, unspecified Medications at Discharge Home Medications thyroid (pork) 60 mg tablet ([place] Thyroid) 60 mg PO DAILY 08/23/20 cholecalciferol (vitamin D3) 1 tab PO DAILY 08/29/24 levothyroxine 25 mcg tablet 25 mcg PO SUTUWETHSA 08/29/24 magnesium citrate 125 mg capsule 250 mg PO QHS 08/29/24 metformin 500 mg tablet 500 mg PO DAILY 08/29/24 acetaminophen 500 mg tablet 1,000 mg (2 x 500 mg) PO Q8 #0 tabs 09/02/24 levofloxacin 750 mg tablet 750 mg PO DAILY 6 days #6 tabs 09/02/24 Hospital Course Operations cholecystecomy Procedures EGD (With ERCP), EKG and - (CT abdomen pelvis, chest x-ray, gallbladder ultrasound) Summary of Care Provided Minutes Spent on Discharge: 35 Hospital Course: Patient is a 48-year-old female who presented to [facility] ED on 08/29/2024 with abdominal pain with nausea, fever/chills and URI symptoms. Hospital course as noted below. Patient discharged home in stable condition on 09/02. 1. Acute cholangitis secondary to choledocholithiasis ??? GI and general surgery followed. CT abdomen pelvis and gallbladder ultrasound on admit showed distended gallbladder with multiple calculi and dilated common bile duct. LFTs with T. bili 4.4, direct bili 2.9, AST 250, ALT 628, alk phos 266. Fevers present on admission. S/p ERCP on 08/29 with stone extraction and common bile duct stenting. S/p laparoscopic cholecystectomy on 08/31. Patient tolerated both procedures well. Labs improved postoperatively. Treated with IV antibiotics here and discharged on p.o. Levaquin to complete 10-day course of antibiotics total, stop date 09/08. 2. RSV infection ??? Patient tested positive for RSV on admit. Mild URI symptoms noted. Chest x- ray unremarkable. Treated with symptomatic management. Contact precautions in place. 3. Hypothyroidism ??? TSH low but free T4 normal on admit. Continue home Synthroid. Outpatient follow-up for dose adjustments as needed. 4. PCOS ??? Continue home metformin on discharge. 5. Class II obesity ??? BMI 36 on admit. Complicated hospital course, care and prognosis. Total clinical time spent by myself addressing the patient's medical issues, reviewing all the data, and collaborating with patient's care team: 35 minutes. Weight / BMI Weight Weight: 92.3 kg Body Mass Index (BMI) 37.2 ABG / Lab / Microbiology Data 09/02/24 05:49 09/02/24 05:49 Laboratory: Laboratory Results - last 24 hr 09/02/24 05:49: WBC 5.7, RBC 3.93 L, Hgb 10.8 L, Hct 32.1 L, MCV 81.7, MCH 27.5, MCHC 33.6, RDW Std Deviation 39.5, RDW Coeff of Fabio 13.2, Plt Count 202, MPV 10.4, Immature Gran % (Auto) 0.700, Neut % (Auto) 73.5 H, Lymph % (Auto) 16.0 L, Stanley % (Auto) 7.5, Eos % (Auto) 1.9, Baso % (Auto) 0.4, Absolute Neuts (auto) 4.2, Absolute Lymphs (auto) 0.91, Nucleated RBC % 0, Sodium 137, Potassium 3.6, Chloride 105, Carbon Dioxide 21.2, Anion Gap 10, BUN 6, Creatinine 0.46 L, Estim Creat Clear Calc 154.71, Est GFR (MDRD) Non-Af 117, BUN/Creatinine Ratio 12.3, Glucose 93, Calcium 7.9, Total Bilirubin 1.14, Direct Bilirubin 0.89 H, AST 48 H, ALT 155 H, Alkaline Phosphatase 133 H, Total Protein 5.7 L, Albumin 2.9 L, Globulin 2.8 Microbiology: Microbiology 08/29/24 15:40 Blood Culture (Wb) - Venous Blood Culture - Final GNR lactose fermen (more content not included)...[facility] 09-02-2024 Discharge summary [facility] Medical Records Department [address] [place] [address] Instructions for Home/Discharge Instructions 09/02/24 1015 MR#: [id number] Acct: [id number] Name: GALILEA Glass Rep #:[id number] : 1975 48 From: Melani MAGDALENO PA-C PCP: Dr. Milton Cody MD Status:ADM I N Discharge Instructions Diet Discharge Diet: Low fat / Low cholesterol DC O2, CPAP, BIPAP needs Home O2 Discharge instructions: No Dressing / Incision Discharge Activity: May Not Drive (3-5 days or while taking narcotic pain medication), May Shower and - (No tub bathing for 2 weeks) Lifting Restrictions: 15 pounds for 2 weeks Dressing / Incision Call your doctor if your incision/area has: Continuous Slow Oozing, Sudden Increased Bleeding, Increased Pain/ Swelling, Increased Redness, Foul Smelling Discharge and Swelling at the incision site Call your doctor if you observe: Fever of 101 or Higher Suture Line Care: Avoid Pulling/Pushing and Avoid Pinching/Bending Change Dressing in: 1 day Cleanse incision/area with: Soap & Water Additional Dressing/Incision Instructions:: You may use a sandwich ziploc bag, cut one side, open the bag and secure it over the drain site before showering. Keep a record of output from HERBERT drain and record it on a sheet daily. Write the amount of drainage,date, time and color of the drainage emptied from the drain. Bring record sheet with you to your appointment. Follow Up Care Please Follow Up With: Deacon Burgos MD When: Please contact our office to schedule a 1 week follow-up with Dr. Burgos [phone], option #2 Test Results: Test results from this visit will be discussed in further detail at your follow- up appointment, if applicable. Discharge Plan Admission Admit Date/Time: 08/29/24 18:22 Primary Reason for Your Visit: Choledocholithiasis Attending Provider: Spencer La Primary Care Provider: Milton Cody Consulting Providers: Deacon Burgos; Spencer La; Jonathan Plata Instructions Additional Instructions / Restrictions: Cholecystectomy Diet ? Start light with soups, soft bland foods, and low fat foods. You may advance diet as tolerated. Activity ? You may drive in 3-5 days but not while taking narcotic pain medication. ? I encourage walking. You may go up steps, one at a time. ? Do not swim or use hot tubs for 2 weeks. ? For comfort, you may use warm compresses or ice as needed for 15-20 minutes chris time. Lifting ? You may lift up to 15 pounds for 2 weeks. Dressings/Incision ? You may shower OVER your plastic dressings ? Do NOT tub bathe ? Leave plastic dressings on for 1 day. ? When plastic dressings are removed, you will find steri strips. It is okay to continue showering with them in place, pat them dry. ? You may remove steri-strips after 1 week. We recommend getting them soaking wet for easier removal. - You may use a sandwich ziploc bag, cut one side, open the bag and secure it over the drain site before showering. - Keep a record of output from HERBERT drain and record it on a sheet daily. Write the amount of drainage, date, time and color of the drainage emptied from the drain. - Bring record sheet with you to your appointment. Medications ? Anesthesia used during surgery and pain medications may cause constipation. I recommend initiating on the day of surgery a fiber supplement like, Metamucil, Citrucel, FiberCon, Benefiber, or a generic form of these medications. 1 heapingtablespoon in water daily. You may continue to utilize any bowel regimen or orallaxatives that you routinely take. ? As long as you are not intolerant to Tylenol, acetaminophen, ibuprofen, Motrin, Advil, Aleve, or similar medications, I would recommend transitioning tothese ycir-xus-cfnatrb medicines as soon as possible instead of continued use ofnarcotic pain medication. Follow up ? You should call [facility] soon after surgery, at [phone] option 2 to make a follow up appointment for 7 days after your surgery. Discharge Orders/Prescriptions Prescriptions: New acetaminophen 500 mg Tablet 1,000 mg PO Q8 Qty: 0 0RF levofloxacin 750 mg Tablet 750 mg PO DAILY 6 Days Qty: 6 0RF No Action thyroid (pork) [[place] Thyroid] 60 mg tablet 60 mg PO DAILY levothyroxine 25 mcg tablet 25 mcg PO SUTUWETHSA Patient Comments: [NO ORIGINAL SIG] metformin 500 mg tablet 500 mg PO DAILY Patient Comments: PT STATES SHE DOES NOT TAKE THIS EVERY DAY cholecalciferol (vitamin D3) 1 tab PO DAILY Patient Comments: PT NOT SURE OF STRENGTH magnesium citrate 125 mg capsule 250 mg PO QHS Referrals / Follow Up: Milton Cody MD [Primary Care Provider] - 09/02/24 1043Anadine MAGDALENO PA-C CC: Dr. Spencer La DO; Dr. Jonathan Plata MD; Dr. Deacon Burgos MD; Dr. Milton Cody MD ~ Signed [facility]03-11-2025 Progress note [facility] Medical Records Department [address] [place] [address] Progress Note - Surgery 09/02/24 1002 MR#: [id number] Acct: [id number] Name: GALILEA Glass Rep #:[id number] : 1975 48 From: Melani MAGDALENO PA-C PCP: Dr. Milton Cody MD Status:ADM I N Location: [place] [address] Subjective Subjective Patient evaluated resting comfortably in bed. She notes feeling a little more rested. She notes discomfort at the HERBERT drain site and minmal tenderness at the incision sites. She notes tolerating regular diet. Objective Data Objective Data Vital Signs: Vital Signs Temp Pulse Resp BP Pulse Ox O2 Del Method 98.4 F 69 16 124/82 H 96 Room Air 09/02/24 07:55 09/02/24 07:55 09/02/24 07:55 09/02/24 07:55 09/02/24 07:55 09/02/24 07:55 Oxygen Delivery Method Room Air Weight: 203 lb 7.787 oz Body Mass Index (BMI) 37.2 Intake & Output: Intake and Output for Last 24 Hours 09/01/24 09/01/24 09/02/24 00:59 23:59 23:59 Intake Total 375 / 244 958.3300 / 1253.3333 450 / 450 Output Total 29 / 29 35 / 35 Balance 346 / 251 464.5056 / 1218.3333 440 / 440 Lab / Micro Data 09/02/24 05:49 09/02/24 05:49 Labs: Laboratory Results - last 24 hr 09/02/24 05:49: WBC 5.7, RBC 3.93 L, Hgb 10.8 L, Hct 32.1 L, MCV 81.7, MCH 27.5,MCHC 33.6, RDW Std Deviation 39.5, RDW Coeff of Fabio 13.2, Plt Count 202, MPV 10.4, Immature Gran % (Auto) 0.700, Neut %(Auto) 73.5 H, Lymph % (Auto) 16.0 L,Stanley % (Auto) 7.5, Eos % (Auto) 1.9, Baso % (Auto) 0.4, Absolute Neuts (auto) 4.2, Absolute Lymphs (auto) 0.91, Nucleated RBC % 0, Sodium 137, Potassium 3.6, Chloride 105, Carbon Dioxide 21.2, Anion Gap 10, BUN 6, Creatinine 0.46 L, EstimCreat Clear Calc 154.71,Est GFR (MDRD) Non-Af 117, BUN/Creatinine Ratio 12.3, Glucose 93, Calcium 7.9, Total Bilirubin 1.14, Direct Bilirubin 0.89 H, AST 48 H, ALT 155 H, Alkaline Phosphatase 133 H, Total Protein 5.7 L, Albumin 2.9 L, Globulin 2.8 Micro: Microbiology 08/29/24 15:40 Blood Culture (Wb) - Venous Blood Culture - Final GNR lactose sanforizer 08/29/24 15:11 Blood Culture (Wb) - Venous Blood Culture - Final Klebsiella pneumoniae sp pneum 08/29/24 16:26 Urine, Clean Catch Urine Culture - Final Mixed Gram Pos & Gram Neg Org 08/29/24 13:50 Mucosa - Nose SARS-CoV-2, Influenza & RSV (PCR) - Final RSV Physical Exam GI GI Narrative: Abdomen- HERBERT drain intact with cloudy serous and bloody fluid noted. Incisions c/d/i. No erythema orinfection noted. Assessment & Plan Assessment/Plan (1) Choledocholithiasis: (2) Cholelithiasis: (3) Obstructive jaundice: (4) Ascending cholangitis: (5) Hepatic lesion: PLAN: Plan I am following this patient in conjunction with Dr. Burgos. He has independently evaluated this patient. Labs reviewed. HERBERT drain will remain intact at discharge Patient is ready for discharge from a surgical standpoint Discharge instructions are complete Follow-up with Dr. Burgos in 1 week Charges/Coding Visit Charges Inpatient E&M: 43059 Subs Hosp L1 (post-op; no charge) 09/02/24 1013 Cosigner Signature (if applicable): CC: ~ Signed [facility]03-10-2025 Procedure note [facility] Medical Records Department [address] [place] [address] Operative Report 08/31/24 1134 MR#: [id number] Acct: [id number] Name: GALILEA Glass Rep #:[id number] : 1975 48 From: Deacon Duckworth PCP: Dr. Milton Cody MD Status:ADM I N Location: [place] [address] Operative Report (Standard) Operative Information Date of Procedure: 08/31/24 Pre-Operative Diagnosis: Choledocholithiasis with cholelithiasis Post-Operative Diagnosis: 1. Severe cholecystitis 2. Choledocholithiasis s/p ERCP with stone extraction and CBD stenting 3. Segment 4 liver lesion Surgery/Procedure Performed: 1. Laparoscopic subtotal cholecystectomy with cholangiography 2. Liver biopsy of segment 4 branch rental manager: Yes Building Manager: Juan Carlos Stiles Tasks completed by journeyman operator assistant: Opening & closing and Other (Laparoscopic camera operation) Type of Anesthesia: General/Supplemental RN Documented Start/Stop Times: Operation Date: 08/31/24 08:20 Case Time Anesthesia Start 08/31/24 08:09 Into Room 08/31/24 08:09 Procedure Start 08/31/24 08:36 Procedure End 08/31/24 11:46 Anesthesia End 08/31/24 11:53 Out of Room 08/31/24 11:53 Into Recovery 08/31/24 11:55 Out of Recovery 08/31/24 12:43 Procedure Start Time: 08:36 Procedure Stop Time: 11:46 Select all DRAINS/GRAFTS/IMPLANTS that apply: Drains Drain details: 15 Marshallese round Brandon drain Estimated Blood Loss: 75 Specimen collected: Yes Description of specimen(s) removed: 1. Gallbladder withstone contents 2. Liver biopsy (segment 4) Description of surgery: After proper identification in the preoperative holding area the patient was brought to the operating room where she was positioned supine on the operating room table. Preoperatively DVT prophylaxis had been administered with Lovenox and SCDs were connected. Antibiotic prophylaxis with 900 mg clindamycin was administered given patient's allergy. General anesthesia was then induced. Patient's abdomen was prepped and draped in usual sterile fashion. A formal timeout was conducted to confirm both patient and the procedure. Procedure was begun with a supraumbilical incision which was extended deeply down to the levelof the fascia. The fascia was elevated and incised, as well as the peritoneum. A finger sweep was performed to ensure there were no underlying adhesions and a 12 mm balloon trocarwas inserted. Pneumoperitoneum was established at 15 mmHg. Three additional trocars (all 5 mm) wereplaced in the epigastrium and in the right upper quadrant. Later in the procedure patient's epigastric port site wasupsized to a 12 mm port under laparoscopic visualization. Inspection of the peritoneum revealed no inadvertent injury to the viscera below. The gallbladderwas visualized with evidenceof chronic inflammation. The gallbladder fundus was was not easily grasped given the firmness of the gallbladder wall (it was later became apparent as a very large gallstone within the lumen) but it was grasped and elevated cephalad. Observing this firmness as well as a whitish lesion cephalad to the gallbladder fossa that measured approximately 1 cm in diameter I became somewhat suspicious for po ssible underlying gallbladder carcinoma. Using careful dissection the peritoneum was opened and thestructures of the hepatocystic triangle were delineated. I traced the gallbladder neck to a dilatedcystic duct and identified a obliquely coursing artery that gave rise to a cystic artery crossing the cystic duct. With every attempt to medially dissect the cystic duct this vessel bled. At one point I placed a tangential clip across a branching vessel towards the gallbladder that had been lacerated inadvertently during dissection of the triangle of Calot and was able to obtain temporary control. On subsequent bleeding I simply applied back pressure and the bleeding would stop. Laterally I identified Rouviere's sulcus and I was concerned that we were dealing with a foreshortened cystic ductsituation and were thus in close proximity to the common bile duct. Upon reaching this observation I made a phone call to my partner to discuss the situation and discussed continuing for complete cholecystectomy versus subtotal cholecystectomy versus aborting the procedure. I felt like I could proceed safely with a subtotal approach and we jointly agreed that tissue would be beneficial for pathology to answer the question as to whether or not patient didhave a carcinoma. I thus proceeded for a laparoscopic subtotal cholecystectomy but took great care to avoid spread of tissue from the immediate vicinity of theoperative field. The anterior wall of the gallbladder was incised and a laparoscopicLigaSure device was used to begin excision of the anterior wall in a cephalad direction. Immediately I encountered a very large gallstone and had to extend my incision of the wall to the gallbladder fossa bilaterally. Then, bluntly the stone was maneuvered out of its position lodged in the gallbladder infundibulum and immediately there was egress of purulent discharge. This discharge was promptlysuctioned free of the peritoneal cavity using laparoscopic suction automatic pilot mechanic device. Additional smaller stones were found beneath this larger stone and both were set aside a top of his stomach for lat erretrieval. Then one by one additional stones were removed from the gallbladder using a laparoscopic grasper and the suction automatic pilot mechanic device to float stones out of the deeper recesses of the gallbladder. Through this process I found thegallbladder posterior wall extended exceptionally intrahepatically. Once I was unable to identify any further stones I grasped the remaining cuff of gallbladder infundibulum and placed a Amaya clamp across the cystic duct. Usingthe pointed cholangiocatheter to puncture the wall of the cystic duct I then proceeded with a cholangiogram. Under fluoroscopy a cholangiogram was obtained showing contrast flowing into a common bile duct with unobstructed antegrade flow into the duodenum via a commonbile duct stent. There was also retrograde flow through the common hepatic ductinto the right and left hepatic ducts. I did not visualize any significant length to the cystic duct. With this finding and the deeply intrahepatic extension of the posterior wall I resolved to continue with the original operative plan of a subtotal cholecystectomy rather than trying to complete the cholecystectomy with division of the cystic duct and therebyrisk potential injury to the common duct. The cholangiocatheter and clamp were removed and theposterior wall of the gallbladder (only a small portion remained) were ablated with application of ErbB argon beam coagulation. A laparoscopic retrieval bag was placed and the gallbladder wall remnants andstones were collected. Over 35gallstones were confirmed (matching the number that had been counted on extraction from the gallbladder). The surgical bed was then examined for hemostasis and a suctionirrigator device was used to copiously irrigate the area around the gallbladder as well as Morison's pouch. Several loose gallstones were identified in this process and were removed from the peritoneum. A Selvin Washburn suture passer was used to place fascial closure stitches (#1 PDS) over the epigastric and supraumbilical (after extraction of the gallbladdercontents) port sites under laparoscopic visualization. Lastly a 15 Marshallese roundBlake drain was fed into the peritoneal cavity via the right upper most right upper quadrant port site and was positioned along the inferior margin of the liver adjacent to the remnant gallbladder/cystic duct stump. It was secured at the skin using 2-0 nylonsuture. Lastly a small amount of fibrillar hemostatic agent was placed over the area of our prior bleeding adjacent to the cystic ductbut this remained white and color and there is no evidence for bleeding. Therefore the pneumoperitoneum was released and the fascial sutures were tied down. A total of 30 mL of anesthetic was injected at the port sites for postoperative pain control. The peritonealdrain was connected to bulb suction. The skin of each port site was then closed in subcuticular fashion using 4-0 Monocryl. Steri- Strips and bandages were applied as dressings. Patient tolerated the procedure well without any apparent complications. On emergence from their anesthetic the patient was taken to PACU for ongoing recovery. Surgical Findings: ? Evidence of severe chronic cholecystitis with folded, and contracted gallbladder with gallbladderwall thickening and many luminal gallstones ? Significant intrahepatic extension of the posterior aspect of the gallbladder ? Cholangiogram showing foreshortened cystic duct with otherwise unimpeded antegrade flow of contrast via common bile duct stent as well as retrograde flowto the common hepatic system ? Small (estimated 1 cm diameter) White liver lesion of segment 4 approximately 1.5 cm cephalad to gallbladder fossa Complications Complications: No Admit VTE Documentation VTE Mechan Device Prophylaxis: SCD's 09/01/24 1633 Cosigner Signature (if applicable): CC: Dr. Spencer La DO; Dr. Deacon Burgos MD; Dr. Milton Cody MD; Paolo Waller, ~ Signed [facility]03-10-2025 Progress note Author Melani Lopez [facility] Note Date/Time September 01, 2024 10: 54am [facility] Medical Records Department [address] [place] [address] Progress Note - Surgery 09/01/24 1049 MR#: [id number] Acct: [id number] Name: GALILEA Glass Rep #:[id number] : 1975 48 From: Melani MAGDALENO PA-C PCP: Dr. Milton Cody MD Status:ADM I N Location: [place] [address] Subjective Subjective Patient evaluated sitting comfortably in the chair. She notes incisional pain. She denies any nausea, vomiting. She notes difficulty with her IV overnight. Objective Data Objective Data Vital Signs: Vital Signs Temp Pulse Resp BP Pulse Ox O2 Del Method 98.4 F 80 18 124/78 H 95 Room Air 09/01/24 08:20 09/01/24 08:20 09/01/24 08:20 09/01/24 08:20 09/01/24 08:20 09/01/24 08:30 Oxygen Delivery Method Room Air Weight: 203 lb 7.787 oz Body Mass Index (BMI) 37.2 Intake & Output: Intake and Output for Last 24 Hours 08/30/24 09/01/24 09/01/24 23:59 00:59 23:59 Intake Total 2450 / 0 375 / 869 811.4174 / 953.3333 Output Total Balance 2450 / 2450 346 / 557 117.8265 / 948.3333 Lab / Micro Data 09/01/24 04:54 09/01/24 04:54 Labs: Laboratory Results - last 24 hr 09/01/24 04:54: WBC 6.0, RBC 3.84 L, Hgb 10.6 L, Hct 31.3 L, MCV 81.5, MCH 27.6,MCHC 33.9, RDW Std Deviation 38.8, RDW Coeff of Fabio 13.1, Plt Count 167, MPV 10.6, Immature Gran % (Auto) 0.500, Neut % (Auto) 78.8 H, Lymph % (Auto) 9.9 L, Stanley % (Auto) 10.3 H, Eos % (Auto) 0.3, Baso % (Auto) 0.2, Absolute Neuts (auto)4.8, Absolute Lymphs (auto) 0.60 L, Nucleated RBC % 0, Sodium 138, Potassium 3.5, Chloride 106, Carbon Dioxide 19.6 L, Anion Gap 12, BUN 4, Creatinine 0.49 L, Estim Creat Clear Calc 145.24, Est GFR (MDRD) Non-Af 115, BUN/Creatinine Ratio7.6 L, Glucose 112 H, Calcium 7.4 L, Total Bilirubin 2.30 H, Direct Bilirubin 1.82 H, AST 50 H, ALT 193 H, Alkaline Phosphatase 132 H, Total Protein 5.5 L, Albumin 2.7 L, Globulin 2.8 Micro: Microbiology 08/29/24 15:40 Blood Culture (Wb) - Venous Blood Culture - Final GNR lactose sanforizer 08/29/24 15:11 Blood Culture (Wb) - Venous Blood Culture - Final Klebsiella pneumoniae sp pneum 08/29/24 16:26 Urine, Clean Catch Urine Culture - Final Mixed Gram Pos & Gram Neg Org 08/29/24 13:50 Mucosa - Nose SARS-CoV-2, Influenza & RSV (PCR) - Final RSV Radiography Diagnostic Testing: Radiology Impression Cholangiogram 08/31/24 06:33 IMPRESSION: Satisfactory opacification of the biliary tree and common bile duct which contains a biliary stent. Mild diffuse narrowing/stricturing of the common hepatic duct. See operative report for further details. Reading Location: [facility] Physical Exam GI GI Narrative: Abdomen- soft, slight tenderness over incisions. HERBERT drain was bloody fluid notedand minimal clots. Incisions c/d/i. No erythema or infection noted. Assessment & Plan Assessment/Plan (1) Choledocholithiasis: (2) Cholelithiasis: (3) Obstructive jaundice: (4) Ascending cholangitis: PLAN: Plan I am following this patient in conjunction with Dr. Burgos. He has independently evaluated this patient. Labs reviewed and are improving. Transition patient over to oral antibiotics Keep HERBERT drain in tact and continue to strip the drain 3 times per shift Increase diet to full liquids Hold Lovenox as HERBERT drain with bloody drainage and only able to perform a subtotal cholecystectomy Encourage ambulation and I.S. We will continue to monitor this patient No discharge planned for today Charges/Coding Visit Charges Inpatient E&M: 72734 Subs Hosp L1 (post-op; no charge) 09/01/24 1054 <Electronically signed by Melani MAGDALENO PA-C> Cosigner Signature (if applicable): CC: ~ Signed [facility] Work Phone: [phone]) 604-129603-10-2025 Telephone encounter Note* Telephone Encounter - Kaylan Rodriguez APRN.CORPORATE REPRESENTATIVE - 09/01/2024 12:04 PM EDT Patient presented to [facility] with fever, chills, epigastric, right lower quadrant pain and back pain. She was sent from PCP office. Reports beginning of illness 2 weeks ago. Infection started to improve. This past Sunday she developed severe dgrandson diagnosed with RSV. Symptoms of upper respiratory pain across upper abdomen, nausea when she eats, no vomiting, no diarrhea, no urinary symptoms but urine is a lot darker in color. She is taking less p.o. intake. Fever tachycardia starting to have a cough upper abdominal pain that goes through to her back. Denies any alcohol history. Denies abdominal surgery. father had pancreatic cancer. She was febrile with a temp of 103.4 heart rate 1 20-1 40 blood pressure 140s to 160s over 80s and 90s. WBC 13.5, hemoglobin 14.6, hematocrit 44.1, platelet count 202 Neutrophils 93.9 lymphocytes 2.0. Direct bilirubin 2.99, AST 250, ALT 628, alkaline phosphatase 266. Urine protein 30, occult blood 25, nitrates by, urobilirubin high, leukocytes esterase [address] of the abdomen and pelvis showed possible gallstones in the neck of the gallbladder. Mild degree of central intrahepatic biliary ductal dilatation. Correlation with ultrasound recommended. Fatty infiltrate of the liver Hepatic steatosis. Recommend further evaluation with MRI Chest x-ray no acute abnormality Gallbladder ultrasound showed distended gallbladder with cholelithiasis. No pericolic fluid or significant wall thickening. Mild dilated common bile duct measuring 8 mm. Consider MRCP. Hepatic steatosis Nonspecific hypoechoic lesion in the right hepatic lobe, not a simple cyst. Recommend further evaluation with contrast-enhanced MRI Ascending colon gyrus, hepatic lesion, obstructive jaundice. Recommending emergent ERCP. [facility]03-10-2025 Miscellaneous Notes* Telephone Encounter - Kaylan Rodriguez APRN.CNP - 09/01/2024 12:04 PM EDT Patient presented to [facility] with fever, chills, epigastric, right lower quadrant pain and back pain. She was sent from PCP office. Reports beginning of illness 2 weeks ago. Infection started to improve. This past Sunday she developed severe dgrandson diagnosed with RSV. Symptoms of upper respiratory pain across upper abdomen, nausea when she eats, no vomiting, no diarrhea, no urinary symptoms but urine is a lot darker in color. She is taking less p.o. intake. Fever tachycardia starting to have a cough upper abdominal pain that goes through to her back. Denies any alcohol history. Denies abdominal surgery. father had pancreatic cancer. She was febrile with a temp of 103.4 heart rate 1 20-1 40 blood pressure 140s to 160s over 80s and 90s. WBC 13.5, hemoglobin 14.6, hematocrit 44.1, platelet count 202 Neutrophils 93.9 lymphocytes 2.0. Direct bilirubin 2.99, AST 250, ALT 628, alkaline phosphatase 266. Urine protein 30, occult blood 25, nitrates by, urobilirubin high, leukocytes esterase [address] of the abdomen and pelvis showed possible gallstones in the neck of the gallbladder. Mild degree of central intrahepatic biliary ductal dilatation. Correlation with ultrasound recommended. Fatty infiltrate of the liver Hepatic steatosis. Recommend further evaluation with MRI Chest x-ray no acute abnormality Gallbladder ultrasound showed distended gallbladder with cholelithiasis. No pericolic fluid or significant wall thickening. Mild dilated common bile duct measuring 8 mm. Consider MRCP. Hepatic steatosis Nonspecific hypoechoic lesion in the right hepatic lobe, not a simple cyst. Recommend further evaluation with contrast-enhanced MRI Ascending colon gyrus, hepatic lesion, obstructive jaundice. Recommending emergent ERCP. [facility] Progress note Author Jonathan Plata [facility] Note Date/Time September 01, 2024 9:0 6am [facility] Medical Records Department [address] [place] [address] Progress Note - Hospitalist 09/01/24804 MR#: [id number] Acct: [id number] Name: GALILEA Glass Rep #:[id number] : 1975 48 From: Jontahan Plata MD PCP: Dr. Milton Cody MD Status:ADM I N Location: [place] [address] Reason for Visit Reason for Visit: Diagnoses Liver disease, unspecified (08/29/24) Other cholangitis (08/29/24) Obstruction of bile duct (08/29/24) Subjective Subjective Patient underwent laparoscopic subtotal cholecystectomy with cholangiography on 08/31/2024. Blood cultures obtained on admission so far positive forGNR lactose sanforizer. Patient remains on levofloxacin as well as metronidazole Objective Data Objective Data Vital Signs: Vital Signs Temp Pulse Resp BP Pulse Ox O2 Del Method 98.5 F 95 20 H 114/66 94 Room Air 09/01/24 02:00 09/01/24 07:03 09/01/24 02:00 09/01/24 02:00 09/01/24 02:00 09/01/24 02:48 Oxygen Delivery Method Room Air Weight: 92.3 kg Body Mass Index (BMI) 37.2 Intake & Output: Intake and Output for Last 24 Hours 08/30/24 09/01/24 09/01/24 23:59 00:59 23:59 Intake Total 2449 / 2449 375 / 199 749.6245 / 953.3333 Output Total Balance 0 / 2449 346 / 227 598.9626 / 948.3333 Lab / Micro Data 09/01/24 04:54 09/01/24 04:54 Labs: Laboratory Results - last 24 hr 08/31/24 07:30: WBC 4.7, RBC 4.30, Hgb 12.0, Hct 35.5 L, MCV 82.6, MCH 27.9, MCHC 33.8, RDW Std Deviation 39.3, RDW Coeff of Fabio 13.2, Plt Count 144 L, MPV 10.8, Immature Gran % (Auto) 0.400, Neut % (Auto) 81.6 H, Lymph % (Auto) 8.1 L, Stanley % (Auto) 8.7, Eos % (Auto) 0.8, Baso % (Auto) 0.4, Absolute Neuts (auto) 3.9, Absolute Lymphs (auto) 0.38 L, Nucleated RBC % 0, Sodium 135, Potassium 3.5, Chloride 104, Carbon Dioxide 19.3 L, Anion Gap 12, BUN 5, Creatinine 0.56 L, Estim Creat Clear Calc 127.08, Est GFR (MDRD) Non-Af 111, BUN/Creatinine Ratio8.6 L, Glucose 82, Calcium 8.2, Phosphorus 2.0 L, Magnesium 2.0, Total Bilirubin4.38 H, Direct Bilirubin 3.51 H, AST 57 H, ALT 268 H, Alkaline Phosphatase 162 H, Total Protein 5.9, Albumin 3.2 L, Globulin 2.7 09/01/24 04:54: WBC 6.0, RBC 3.84 L, Hgb 10.6 L, Hct 31.3 L, MCV 81.5, MCH 27.6,MCHC 33.9, RDW Std Deviation 38.8, RDW Coeff of Fabio 13.1, Plt Count 167, MPV 10.6, Immature Gran % (Auto) 0.500, Neut % (Auto) 78.8 H, Lymph % (Auto) 9.9 L, Stanley % (Auto) 10.3 H, Eos % (Auto) 0.3, Baso % (Auto) 0.2, Absolute Neuts (auto)4.8, Absolute Lymphs (auto) 0.60 L, Nucleated RBC % 0, Sodium 138, Potassium 3.5, Chloride 106, Carbon Dioxide 19.6 L, Anion Gap 12, BUN 4, Creatinine 0.49 L, Estim Creat Clear Calc 145.24, Est GFR (MDRD) Non-Af 115, BUN/Creatinine Ratio7.6 L, Glucose 112 H, Calcium 7.4 L, Total Bilirubin 2.30 H, Direct Bilirubin 1.82 H, AST 50 H, ALT 193 H, Alkaline Phosphatase 132 H, Total Protein 5.5 L, Albumin 2.7 L, Globulin 2.8 Micro: Microbiology 08/29/24 15:40 Blood Culture (Wb) - Venous Blood Culture - Final GNR lactose sanforizer 08/29/24 15:11 Blood Culture (Wb) - Venous Blood Culture - Final Klebsiella pneumoniae sp pneum 08/29/24 16:26 Urine, Clean Catch Urine Culture - Final Mixed Gram Pos & Gram Neg Org 08/29/24 13:50 Mucosa - Nose SARS-CoV-2, Influenza & RSV (PCR) - Final RSV Radiography Diagnostic Testing: Radiology Impression Cholangiogram 08/31/24 06:33 IMPRESSION: Satisfactory opacification of the biliary tree and common bile duct which contains a biliary stent. Mild diffuse narrowing/stricturing of the common hepatic duct. See operative report for further details. Reading Location: [facility] Physical Exam Narrative GENERAL: cooperative HEENT: Atraumatic; normocephalic EYES; Anicteric, Normal Conjunctiva NECK; supple, normal thyroid, RESPIRATORY: Diminished to auscultation CARDIOVASCULAR: Regular S1 S2, GI: soft, normoactive bowel sounds, : No Renal angle tenderness; EXTREMITIES: No edema, no clubbing, MUSCULOSKELETAL: no muscle wasting NEURO: Awake; no lateralizing signs. SKIN: No Rash PSYCH; Flat affect Assessment & Plan Assessment/Plan (1) Ascending cholangitis: (2) Obstructive jaundice: PLAN: Plan Patient is a 48-year-old female who presented [facility] ED on 08/29/2024 with abdominal pain with nausea, fever/chills and URI symptoms. 1. Choledocholithiasis with concern for acute cholangitis ? CT of the abdomen and pelvis obtained on admission demonstrated Distended gallbladder with cholelithiasis. No pericholecystic fluid or significant wall thickening. Mildly dilated common bile duct measuring 8 mm. Hepatic steatosis. Nonspecific hypoechoic lesion in the right hepatic lobe, not a simple cyst. Patient was started on broad-spectrum antibiotic therapy with Levaquin and Flagyl consult placed to general surgery and GI. Patient underwent ERCP the dayprior results reviewed. Plans for patient to undergo cholecystectomy on 08/31/2024 ? 08/31/2024; patient underwent laparoscopic subtotal cholecystectomy with cholangiography on 08/31/2024 -09/01/2024 7 patient underwent laparoscopic subtotal cholecystectomy with cholangiography on 08/31/2024. Blood cultures obtained on admission so far positive forGNR lactose sanforizer. Patient remains on levofloxacin as well as metronidazole 2. RSV infection ? Patient tested positive for RSV on admit. Mild URI symptoms noted. Chest x-ray unremarkable. Treated with symptomatic management. Contact precautions in place. 3. Hypothyroidism ? Patient is on patient is on pork thyroid supplement home dose continued 4. PCOS ? Patient is on metformin 5. Class II obesity with BMI of 38.1 ? Complicating care weight loss advised 6. DVT prophylaxis ? On enoxaparin Time spent in the patient's overall evaluation,decision-making process, review of diagnostic data, adjustment of management, discussion with other providers, nursing nursing and ancillary staff involved in patient's care documentation, 36minutes Charges/Coding Visit Charges Inpatient E&M: 58462 Subs Hosp L2 09/01/24 0906 <Electronically signed by Jonathan Plata MD> Cosigner Signature (if applicable): CC: ~ Signed [facility] Work Phone: 1(106) 911-673203-10-2025 Progress note [facility] Medical Records Department [address] [address] Progress Note - Surgery 09/01/24 1049 MR#: [id number] Acct: [id number] Name: GALILEA Glass Rep #:[id number] : 1975 48 From: Melani MAGDALENO PA-C PCP: Dr. Milton Cody MD Status:ADM I N Location: [facility] [id number] Subjective Subjective Patient evaluated sitting comfortably in the chair. She notes incisional pain. She denies any nausea, vomiting. She notes difficulty with her IV overnight. Objective Data Objective Data Vital Signs: Vital Signs Temp Pulse Resp BP Pulse Ox O2 Del Method 98.4 F 80 18 124/78 H 95 Room Air 09/01/24 08:20 09/01/24 08:20 09/01/24 08:20 09/01/24 08:20 09/01/24 08:20 09/01/24 08:30 Oxygen Delivery Method Room Air Weight: 203 lb 7.787 oz Body Mass Index (BMI) 37.2 Intake & Output: Intake and Output for Last 24 Hours 08/30/24 09/01/24 09/01/24 23:59 00:59 23:59 Intake Total 2450 / 2450 375 / 535 681.0220 / 953.3333 Output Total 5 / Balance 2450 / 2450 346 / 699 365.0957 / 948.3333 Lab / Micro Data 09/01/24 04:54 09/01/24 04:54 Labs: Laboratory Results - last 24 hr 09/01/24 04:54: WBC 6.0, RBC 3.84 L, Hgb 10.6 L, Hct 31.3 L, MCV 81.5, MCH 27.6,MCHC 33.9, RDW Std Deviation 38.8, RDW Coeff of Fabio 13.1, Plt Count 167, MPV 10.6, Immature Gran % (Auto) 0.500, Neut %(Auto) 78.8 H, Lymph % (Auto) 9.9 L, Stanley % (Auto) 10.3 H, Eos % (Auto) 0.3, Baso % (Auto) 0.2, Absolute Neuts (auto)4.8, Absolute Lymphs (auto) 0.60 L, Nucleated RBC % 0, Sodium 138, Potassium 3.5, Chloride 106, Carbon Dioxide 19.6 L, Anion Gap 12, BUN 4, Creatinine 0.49 L, Estim Creat Clear Calc 145.24, Est GFR (MDRD) Non-Af 115, BUN/Creatinine Ratio7.6 L, Glucose 112 H, Calcium 7.4 L, Total Bilirubin 2.30 H, Direct Bilirubin 1.82 H, AST 50 H, ALT 193 H, Alkaline Phosphatase 132 H, Total Protein 5.5 L, Albumin 2.7 L, Globulin 2.8 Micro: Microbiology 08/29/24 15:40 Blood Culture (Wb) - Venous Blood Culture - Final GNR lactose sanforizer 08/29/24 15:11 Blood Culture (Wb) - Venous Blood Culture - Final Klebsiella pneumoniae sp pneum 08/29/24 16:26 Urine, Clean Catch Urine Culture - Final Mixed Gram Pos & Gram Neg Org 08/29/24 13:50 Mucosa - Nose SARS-CoV-2, Influenza & RSV (PCR) - Final RSV Radiography Diagnostic Testing: Radiology Impression Cholangiogram 08/31/24 06:33 IMPRESSION: Satisfactory opacification of the biliary tree and common bile duct which contains a biliary stent.Mild diffuse narrowing/stricturing of the common hepatic duct. See operative report for further details. Reading [facility] Physical Exam GI GI Narrative: Abdomen- soft, slight tenderness over incisions. HERBERT drain was bloody fluid notedand minimal clots. Incisions c/d/i. No erythema or infection noted. Assessment & Plan Assessment/Plan (1) Choledocholithiasis: (2) Cholelithiasis: (3) Obstructive jaundice: (4) Ascending cholangitis: PLAN: Plan I am following this patient in conjunction with Dr. Burgos. He has independently evaluated this patient. Labs reviewed and are improving. Transition patient over to oral antibiotics Keep HERBERT drain in tact and continue to strip the drain 3 times per shift Increase diet to full liquids Hold Lovenox as HERBERT drain with bloody drainage and only able to perform a subtotal cholecystectomy Encourage ambulation and I.S. We will continue to monitor this patient No discharge planned for today Charges/Coding Visit Charges Inpatient E&M: 07254 Subs Hosp L1 (post-op; no charge) 09/01/24 1054 Cosigner Signature (if applicable): CC: ~ Signed [facility]03-10-2025 Progress note* Result Encounter Note - Kaylan Rodriguez APRN.CORPORATE REPRESENTATIVE - 09/01/2024 9:25 AM EDT I am so glad she went. Also positive for RSV. I felt so bad for her. That gall bladder was certainly the worst of it. [facility] Work Phone: 1([phone]) 412-447803-10-2025 Miscellaneous Notes* Result Encounter Note - Kaylan Rodriguez APRN.CNP - 09/01/2024 9:25 AM EDT I am so glad she went. Also positive for RSV. I felt so bad for her. That gall bladder was certainly the worst of it. * Telephone Encounter - Melani Adler RN - 09/01/2024 9:15 AM EDT Pt called in and reports she was admitted to [facility] on Sunday night 08/29/24. She reports they did an ERCP and drained some of the pus. Then yesterday after the fever went down they removed 36 impacted gallstones and most of the gallbladder but part of it was hooked on something and they couldn't get that. She states something was twisted and she has bacteria in her blood. They are waiting on the lab results to come back on her blood in order to treat that. * Telephone Encounter - Bing Franz MA - 09/01/2024 8:57 AM EDT Called and left message to get update on patient. She was to go to ER after leaving office. Bing Franz MA September 01, 2024 8:58 AM * Telephone Encounter - Bing Franz MA - 09/01/2024 8:56 AM EDT ----- Message from Kaylan Rodriguez sent at 09/01/2024 7:47 AM EDT ----- Your are positive for RSV. Rest, fluids, treat symptoms. This is a virus and there is no medicationto shorten the duration. * Result Encounter Note - Kaylan Rodriguez APRN.CNP - 09/01/2024 7:47 AM EDT Your are positive for RSV. Rest, fluids, treat symptoms. This is a virus and there is no medicationto shorten the duration. [facility] Telephone encounter Note * Telephone Encounter - Melani Adler RN - 09/01/2024 9:15 AM EDT Pt called in and reports she was admitted to [facility] on Sunday night 08/29/24. She reports they did an ERCP and drained some of the pus. Then yesterday after the fever went down they removed 36 impacted gallstones and most of the gallbladder but part of it was hooked on something and they couldn't get that. She states something was twisted and she has bacteria in her blood. They are waiting on the lab results to come back on her blood in order to treat that. [facility]03-10-[facility]25 Progress note [facility] Medical Records Department [address] [place] [address] Progress Note - Hospitalist 09/01/24 0805 MR#: [id number] Acct: [id number] Name: GALILEA Glass Rep #:[id number] : 1975 48 From: Jonathan Plata MD PCP: Dr. Milton Cody MD Status:ADM I N Location: [place] [address] Reason for Visit Reason for Visit: Diagnoses Liver disease, unspecified (08/29/24) Other cholangitis (08/29/24) Obstruction of bile duct (08/29/24) Subjective Subjective Patient underwent laparoscopic subtotal cholecystectomy with cholangiography on 08/31/2024. Blood cultures obtained on admission so far positive forGNR lactose sanforizer. Patient remains on levofloxacin as well as metronidazole Objective Data Objective Data Vital Signs: Vital Signs Temp Pulse Resp BP Pulse Ox O2 Del Method 98.5 F 95 20 H 114/66 94 Room Air 09/01/24 02:00 09/01/24 07:03 09/01/24 02:00 09/01/24 02:00 09/01/24 02:00 09/01/24 02:48 Oxygen Delivery Method Room Air Weight: 92.3 kg Body Mass Index (BMI) 37.2 Intake & Output: Intake and Output for Last 24 Hours 08/30/24 09/01/24 09/01/24 23:59 00:59 23:59 Intake Total 2450 / 2450 375 / 415 071.4907 / 953.3333 Output Total 5 Balance 2450 / 2450 346 / 104 243.7073 / 948.3333 Lab / Micro Data 09/01/24 04:54 09/01/24 04:54 Labs: Laboratory Results - last 24 hr 08/31/24 07:30: WBC 4.7, RBC 4.30, Hgb 12.0, Hct 35.5 L, MCV 82.6, MCH 27.9, MCHC 33.8, RDW Std Deviation 39.3, RDW Coeff of Fabio 13.2, Plt Count 144 L, MPV 10.8, Immature Gran % (Auto) 0.400, Neut % (Auto) 81.6 H, Lymph % (Auto) 8.1 L, Stanley % (Auto) 8.7, Eos % (Auto) 0.8, Baso % (Auto) 0.4, Absolute Neuts (auto) 3.9, Absolute Lymphs (auto) 0.38 L, Nucleated RBC % 0, Sodium 135, Potassium 3.5, Chloride 104, Carbon Dioxide 19.3 L, Anion Gap 12, BUN 5, Creatinine 0.56 L, Estim Creat Clear Calc 127.08, Est GFR (MDRD) Non-Af 111, BUN/Creatinine Ratio8.6 L, Glucose 82, Calcium 8.2, Phosphorus 2.0 L, Magnesium 2.0, Total Bilirubin4.38 H, Direct Bilirubin 3.51 H, AST 57 H, ALT 268 H, Alkaline Phosph atase 162 H, Total Protein 5.9, Albumin 3.2 L, Globulin 2.7 09/01/24 04:54: WBC 6.0, RBC 3.84 L, Hgb 10.6 L, Hct 31.3 L, MCV 81.5, MCH 27.6,MCHC 33.9, RDW Std Deviation 38.8, RDW Coeff of Fabio 13.1, Plt Count 167, MPV 10.6, Immature Gran % (Auto) 0.500, Neut %(Auto) 78.8 H, Lymph % (Auto) 9.9 L, Stanley % (Auto) 10.3 H, Eos % (Auto) 0.3, Baso % (Auto) 0.2, Absolute Neuts (auto)4.8, Absolute Lymphs (auto) 0.60 L, Nucleated RBC % 0, Sodium 138, Potassium 3.5, Chloride 106, Carbon Dioxide 19.6 L, Anion Gap 12, BUN 4, Creatinine 0.49 L, Estim Creat Clear Calc 145.24, Est GFR (MDRD) Non-Af 115, BUN/Creatinine Ratio7.6 L, Glucose 112 H, Calcium 7.4 L, Total Bilirubin 2.30 H, Direct Bilirubin 1.82 H, AST 50 H, ALT 193 H, Alkaline Phosphatase 132 H, Total Protein 5.5 L, Albumin 2.7 L, Globulin 2.8 Micro: Microbiology 08/29/24 15:40 Blood Culture (Wb) - Venous Blood Culture - Final GNR lactose sanforizer 08/29/24 15:11 Blood Culture (Wb) - Venous Blood Culture - Final Klebsiella pneumoniae sp pneum 08/29/24 16:26 Urine, Clean Catch Urine Culture - Final Mixed Gram Pos & Gram Neg Org 08/29/24 13:50 Mucosa - Nose SARS-CoV-2, Influenza & RSV (PCR) - Final RSV Radiography Diagnostic Testing: Radiology Impression Cholangiogram 08/31/24 06:33 IMPRESSION: Satisfactory opacification of the biliary tree and common bile duct which contains a biliary stent.Mild diffuse narrowing/stricturing of the common hepatic duct. See operative report for further details. Reading [facility] Narrative GENERAL: cooperative HEENT: Atraumatic; normocephalic EYES; Anicteric, Normal Conjunctiva NECK; supple, normal thyroid, RESPIRATORY: Diminished to auscultation CARDIOVASCULAR: Regular S1 S2, GI: soft, normoactive bowel sounds, : No Renal angle tenderness; EXTREMITIES: No edema, no clubbing, MUSCULOSKELETAL: no muscle wasting NEURO: Awake; no lateralizing signs. SKIN: No Rash PSYCH; Flat affect Assessment & Plan Assessment/Plan (1) Ascending cholangitis: (2) Obstructive jaundice: PLAN: Plan Patient is a 48-year-old female who presented [facility] ED on 08/29/2024 with abdominal pain with nausea, fever/chills and URI symptoms. 1. Choledocholithiasis with concern for acute cholangitis ? CT of the abdomen and pelvis obtained on admission demonstrated Distended gallbladder with cholelithiasis. No pericholecystic fluid or significant wall thickening. Mildly dilated common bile duct measuring 8 mm. Hepatic steatosis. Nonspecific hypoechoic lesion in the right hepatic lobe, not a simple cyst. Patient was started on broad-spectrum antibiotic therapy with Levaquin and Flagyl consult placed to general surgery and GI. Patient underwent ERCP the dayprior results reviewed. Plans for patient to undergo cholecystectomy on 08/31/2024 ? 08/31/2024; patient underwent laparoscopic subtotal cholecystectomy with cholangiography on 08/31/2024 -09/01/2024 7 patient underwent laparoscopic subtotal cholecystectomy with cholangiography on 08/31/2024. Blood cultures obtained on admission so far positive forGNR lactose sanforizer. Patient remains on levofloxacin as well as metronidazole 2. RSV infection ? Patient tested positive for RSV on admit. Mild URI symptoms noted. Chest x-ray unremarkable. Treated with symptomatic management. Contact precautions in place. 3. Hypothyroidism ? Patient is on patient is on pork thyroid supplement home dose continued 4. PCOS ? Patient is on metformin 5. Class II obesity with BMI of 38.1 ? Complicating care weight loss advised 6. DVT prophylaxis ? On enoxaparin Time spent in the patient's overall evaluation,decision-making process, review of diagnostic data, adjustment of management, discussion with other providers, nursing nursing and ancillary staff involved in patient's care documentation, 36minutes Charges/Coding Visit Charges Inpatient E&M: 11554 Subs Hosp L2 09/01/24 0906 Cosigner Signature (if applicable): CC: ~ Signed [facility]03-10-2025 Telephone encounter Note* Telephone Encounter - Bing Franz MA - 09/01/2024 8:57 AM EDT Called and left message to get update on patient. She was to go to ER after leaving office. Bing Franz MA September 01, 2024 8:58 AM [facility]03-10[facility] Telephone encounter Note* Telephone Encounter - Bing Franz MA - 09/01/2024 8:56 AM EDT ----- Message from Kaylan Rodriguez sent at 09/01/2024 7:47 AM EDT ----- Your are positive for RSV. Rest, fluids, treat symptoms. This is a virus and there is no medicationto shorten the duration. [facility]03-[facility] Progress note* Result Encounter Note - Kaylan Rodriguez APRN.CNP - 09/01/2024 7:47 AM EDT Your are positive for RSV. Rest, fluids, treat symptoms. This is a virus and there is no medicationto shorten the duration. [facility]03-09-[facility]25 Radiology Diagnostic study note [facility] Imaging Services [address] [place], [place] [id number] Cholangiogram/ O R,Initial MR#: [id number] Acct: [id number] Name: GALILEA GLASS Rep #: [id number] : 1975 F 48 From: Mesfin Vasquez DO PCP: Dr. Milton Cody MD Status: ADM I N Study:Cholangiogram/ O R,Initial Date of Exam : 08/31/24 Exam# [id number] Ordering Dr: Brigitte Burgos MD PROCEDURE: Cholangiogram REASON FOR EXAM: Laparoscopic cholecystectomy TECHNIQUE: 2 cine clips were submitted with 93 and 54 images. Total fluoroscopy time was 28 seconds. Peak skinradiation dose was 20 mGy. COMPARISON: 08/29/2024 FINDINGS: See impression RAD/Cholangiogram/ O R,Initial IMPRESSION: Satisfactory opacification of the biliary tree and common bile duct which contains a biliary stent.Mild diffuse narrowing/stricturing of the common hepatic duct. See operative report for further details. Reading Location: [facility] CC: Dr. Deacon Burgos MD; Dr. Milton Cody MD ~ Lunchroom Mother: Signed [facility]03-09-2025 Progress note Author Jonathan Plata [facility] Note Date/Time August 31, 2024 2:49 pm [facility] Medical Records Department [address] [place] [address] Progress Note - Hospitalist 08/31/24 0737 MR#: [id number] Acct: [id number] Name: GALILEA GLASS Rep #:[id number] : 1975 48 From: Jonathan Plata MD PCP: Dr. Milton Cody MD Status:ADM I N Location: [place] [address] Reason for Visit Reason for Visit: Diagnoses Liver disease, unspecified (08/29/24) Other cholangitis (08/29/24) Obstruction of bile duct (08/29/24) Subjective Subjective Patient underwent laparoscopic subtotal cholecystectomy with cholangiography Objective Data Objective Data Vital Signs: Vital Signs Temp Pulse Resp BP Pulse Ox O2 Del Method 98.2 F 71 18 128/84 H 96 Room Air 08/31/24 06:06 08/31/24 06:06 08/31/24 06:06 08/31/24 06:06 08/31/24 06:06 08/31/24 06:06 Oxygen Delivery Method Room Air Weight: 92.3 kg Body Mass Index (BMI) 37.2 Intake & Output: Intake and Output for Last 24 Hours 08/29/24 08/30/24 09/01/24 23:59 23:59 00:59 Intake Total 1100 / 1100 2450 / 2450 Balance 1100 / 1100 2450 / 2450 Lab / Micro Data 08/31/24 07:30 08/31/24 07:30 Labs: Laboratory Results - last 24 hr 08/30/24 06:31: POC Glucose 108 H 08/30/24 08:02: WBC 8.4, RBC 4.37, Hgb 12.0, Hct 35.6 L, MCV 81.5, MCH 27.5, MCHC 33.7, RDW Std Deviation 38.7, RDW Coeff of Fabio 13.0, Plt Count 157, MPV 10.5, Sodium 139, Potassium 3.6, Chloride 106, Carbon Dioxide 19.8 L, Anion Gap 13, BUN 6, Creatinine 0.62 L, Estim Creat Clear Calc 116.36, Est GFR (MDRD) Non-Af 108, BUN/Creatinine Ratio 10.3, Glucose 103 H, Calcium 8.1, Total Bilirubin 5.10 H, AST 96 H, ALT 368 H, Alkaline Phosphatase 177 H, Total Protein 5.8 L, Albumin 3.3 L, Globulin 2.5, Albumin/Globulin Ratio 1.3 Micro: Microbiology 08/29/24 15:40 Blood Culture (Wb) - Venous Blood Culture - Preliminary GNR lactose sanforizer 08/29/24 15:11 Blood Culture (Wb) - Venous Blood Culture - Preliminary GNR lactose sanforizer 08/29/24 16:26 Urine, Clean Catch Urine Culture - Preliminary Mixed Gram Pos & Gram Neg Org 08/29/24 13:50 Mucosa - Nose SARS-CoV-2, Influenza & RSV (PCR) - Final RSV Physical Exam Narrative GENERAL: cooperative HEENT: Atraumatic; normocephalic EYES; Anicteric, Normal Conjunctiva NECK; supple, normal thyroid, RESPIRATORY: Diminished to auscultation CARDIOVASCULAR: Regular S1 S2, GI: soft, normoactive bowel sounds, : No Renal angle tenderness; EXTREMITIES: No edema, no clubbing, MUSCULOSKELETAL: no muscle wasting NEURO: Awake; no lateralizing signs. SKIN: No Rash PSYCH; Flat affect Assessment & Plan Assessment/Plan (1) Ascending cholangitis: (2) Obstructive jaundice: PLAN: Plan Patient is a 48-year-old female who presented [facility] ED on 08/29/2024 with abdominal pain with nausea, fever/chills and URI symptoms. 1. Choledocholithiasis with concern for acute cholangitis ? CT of the abdomen and pelvis obtained on admission demonstrated Distended gallbladder with cholelithiasis. No pericholecystic fluid or significant wall thickening. Mildly dilated common bile duct measuring 8 mm. Hepatic steatosis. Nonspecific hypoechoic lesion in the right hepatic lobe, not a simple cyst. Patient was started on broad-spectrum antibiotic therapy with Levaquin and Flagyl consult placed to general surgery and GI. Patient underwent ERCP the dayprior results reviewed. Plans for patient to undergo cholecystectomy on 08/31/2024 ? 08/31/2024; patient underwent laparoscopic subtotal cholecystectomy with cholangiography on 08/31/2024 2. RSV infection ? Patient tested positive for RSV on admit. Mild URI symptoms noted. Chest x-ray unremarkable. Treated with symptomatic management. Contact precautions in place. 3. Hypothyroidism ? Patient is on patient is on pork thyroid supplement home dose continued 4. PCOS ? Patient is on metformin 5. Class II obesity with BMI of 38.1 ? Complicating care weight loss advised 6. DVT prophylaxis ? On enoxaparin Time spent in the patient's overall evaluation,decision-making process, review of diagnostic data, adjustment of management, discussion with other providers, nursing nursing and ancillary staff involved in patient's care documentation, 40 minutes Charges/Coding Visit Charges Inpatient E&M: 67431 Subs Hosp L2 08/31/24 5309 <Electronically signed by Jonathan Plata MD> Cosigner Signature (if applicable): CC: ~ Signed [facility] Work Phone: 1(566) 863-446103-09-2025 Consult note Author Ruy gayle [facility] Note Date/Time August 31, 2024 2:34 pm [facility] Medical Records Department [address] [place] [address] Anesthesia Postop Eval I 08/31/24 1400 MR#: [id number] Acct: [id number] Name: GALILEA GLASS Rep #:[id number] : 1975 48 From: Ruy Gallagher MD PCP: Dr. Milton Cody MD Status:ADM I N Y Race: C Location: [place] [address] 4-1 Anesthesia: Postop Eval I Current Vital Signs Temperature: 96.8 F Pulse Rate: 94 Blood Pressure: 116/76 Respiratory Rate: 18 Pulse Ox: 93 Oxygen Delivery Method: Room Air Assessment Airway patent: Yes Spontaneous unlabored respirations: Yes Mental status: Awake nausea: No Vomiting: No Anesthesia Complication: No Fluid Hydration Crystalloid volume administer (ml): 1,800 Total IV fluid infused: 1,800 Progress Note Anesthesia document: Postop Eval 1 completed: Yes 08/31/24 1434 <Electronically signed by Ruy Gallagher MD > Date _ Ruy Gallagher MD Cosigner Signature: Date CC: ~ Signed [facility] Work Phone: [phone]) 579-163203-09-2025 Consult note Author Ruy [facility] Note Date/Time August 31, 2024 2:34 pm [facility] Medical Records Department [address] [place] [address] Anesthesia Postop Eval II 08/31/24 1434 MR#: [id number] Acct: [id number] Name: GALILEA GLASS Rep #:[id number] : 1975 48 From: Ruy Gallagher MD PCP: Dr. Milton Cody MD Status:ADM I N Y Race: C Location: [place] [address] Anesthesia Postop Eval I Sum Postop Eval Completion status Anesthesia document: Postop Eval 1 completed: Yes Anesthesia Postop Eval I Summary Anesthesia Postop Eval I Summary: Anesthesia Postop Eval I: Assessment Summary Airway patent Yes 08/31/24 14:34 Spontaneous unlabored Yes 08/31/24 14:34 respirations Mental status Awake 08/31/24 14:34 nausea No 08/31/24 14:34 Vomiting No 08/31/24 14:34 Anesthesia Postop Eval I: Fluid Summary Crystalloid volume administer 1,800 08/31/24 14:34 (ml) Colloids volume administered ( ml) Blood Product volume administered (ml) Total IV fluid infused 1,800 08/31/24 14:34 Anesthesia Postop Eval I: Summary Notes Anesthesia Complication No 08/31/24 14:34 Anesthesia Complication Comment: Post-operative progress note Anesthesia: Postop Eval II Evaluation Mental status: Awake Pain Level: 0 nausea: No Vomiting: No 08/31/24 1434 <Electronically signed by Ruy Gallagher MD > Date _ Ruy Gallagher MD Cosigner Signature: Date CC: ~ Signed [facility] Work Phone: 1(369) 542-573103-09-2025 Progress note [facility] Medical Records Department [address] [place] [address] Progress Note - Hospitalist 08/31/24 0737 MR#: [id number] Acct: [id number] Name: GALILEA GLASS Rep #:[id number] : 1975 48 From: Jonathan Plata MD PCP: Dr. Milton Cody MD Status:ADM I N Location: [place] [address] Reason for Visit Reason for Visit: Diagnoses Liver disease, unspecified (08/29/24) Other cholangitis (08/29/24) Obstruction of bile duct (08/29/24) Subjective Subjective Patient underwent laparoscopic subtotal cholecystectomy with cholangiography Objective Data Objective Data Vital Signs: Vital Signs Temp Pulse Resp BP Pulse Ox O2 Del Method 98.2 F 71 18 128/84 H 96 Room Air 08/31/24 06:06 08/31/24 06:06 08/31/24 06:06 08/31/24 06:06 08/31/24 06:06 08/31/24 06:06 Oxygen Delivery Method Room Air Weight: 92.3 kg Body Mass Index (BMI) 37.2 Intake & Output: Intake and Output for Last 24 Hours 0308/30/24 09/01/24 23:59 23:59 00:59 Intake Total 1100 / 1100 2450 / 2450 Balance 1100 / 1100 2450 / 2450 Lab / Micro Data 08/31/24 07:30 08/31/24 07:30 Labs: Laboratory Results - last 24 hr 08/30/24 06:31: POC Glucose 108 H 08/30/24 08:02: WBC 8.4, RBC 4.37, Hgb 12.0, Hct 35.6 L, MCV 81.5, MCH 27.5, MCHC 33.7, RDW Std Deviation 38.7, RDW Coeff of Fabio 13.0, Plt Count 157, MPV 10.5, Sodium 139, Potassium 3.6, Chloride 106, Carbon Dioxide 19.8 L, Anion Gap 13, BUN 6, Creatinine 0.62 L, Estim Creat Clear Calc 116.36, Est GFR (MDRD) Non- Af 108, BUN/Creatinine Ratio 10.3, Glucose 103 H, Calcium 8.1, Total Bilirubin 5.10 H, AST 96 H, ALT 368 H, Alkaline Phosphatase 177 H, Total Protein 5.8 L, Albumin 3.3 L, Globulin 2.5,Albumin/Globulin Ratio 1.3 Micro: Microbiology 08/29/24 15:40 Blood Culture (Wb) - Venous Blood Culture - Preliminary GNR lactose sanforizer 08/29/24 15:11 Blood Culture (Wb) - Venous Blood Culture - Preliminary GNR lactose sanforizer 08/29/24 16:26 Urine, Clean Catch Urine Culture - Preliminary Mixed Gram Pos & Gram Neg Org 08/29/24 13:50 Mucosa - Nose SARS-CoV-2, Influenza & RSV (PCR) - Final RSV Physical Exam Narrative GENERAL: cooperative HEENT: Atraumatic; normocephalic EYES; Anicteric, Normal Conjunctiva NECK; supple, normal thyroid, RESPIRATORY: Diminished to auscultation CARDIOVASCULAR: Regular S1 S2, GI: soft, normoactive bowel sounds, : No Renal angle tenderness; EXTREMITIES: No edema, no clubbing, MUSCULOSKELETAL: no muscle wasting NEURO: Awake; no lateralizing signs. SKIN: No Rash PSYCH; Flat affect Assessment & Plan Assessment/Plan (1) Ascending cholangitis: (2) Obstructive jaundice: PLAN: Plan Patient is a 48-year-old female who presented [facility] ED on 08/29/2024 with abdominal pain with nausea, fever/chills and URI symptoms. 1. Choledocholithiasis with concern for acute cholangitis ? CT of the abdomen and pelvis obtained on admission demonstrated Distended gallbladder with cholelithiasis. No pericholecystic fluid or significant wall thickening. Mildly dilated common bile duct measuring 8 mm. Hepatic steatosis. Nonspecific hypoechoic lesion in the right hepatic lobe, not a simple cyst. Patient was started on broad-spectrum antibiotic therapy with Levaquin and Flagyl consult placed to general surgery and GI. Patient underwent ERCP the dayprior results reviewed. Plans for patient to undergo cholecystectomy on 08/31/2024 ? 08/31/2024; patient underwent laparoscopic subtotal cholecystectomy with cholangiography on 08/31/2024 2. RSV infection ? Patient tested positive for RSV on admit. Mild URI symptoms noted. Chest x-ray unremarkable. Treated with symptomatic management. Contact precautions in place. 3. Hypothyroidism ? Patient is on patient is on pork thyroid supplement home dose continued 4. PCOS ? Patient is on metformin 5. Class II obesity with BMI of 38.1 ? Complicating care weight loss advised 6. DVT prophylaxis ? On enoxaparin Time spent in the patient's overall evaluation,decision-making process, review of diagnostic data, adjustment of management, discussion with other providers, nursing nursing and ancillary staff involved in patient's care documentation, 40 minutes Charges/Coding Visit Charges Inpatient E&M: 35209 Subs Hosp L2 08/31/24 1449 Cosigner Signature (if applicable): CC: ~ Signed [facility]03-09-2025 Consult note [facility] Medical Records Department [address] [facility] [place] [address] Anesthesia Postop Eval I 08/31/24 1400 MR#: [id number] Acct: [id number] Name: AGLILEA GLASS Rep #:[id number] : 1975 48 From: Ruy Gallagher MD PCP: Dr. Milton Cody MD Status:ADM I N Y Race: C Location: [place] [address] 4-1 Anesthesia: Postop Eval I Current Vital Signs Temperature: 96.8 F Pulse Rate: 94 Blood Pressure: 116/76 Respiratory Rate: 18 Pulse Ox: 93 Oxygen Delivery Method: Room Air Assessment Airway patent: Yes Spontaneous unlabored respirations: Yes Mental status: Awake nausea: No Vomiting: No Anesthesia Complication: No Fluid Hydration Crystalloid volume administer (ml): 1,800 Total IV fluid infused: 1,800 Progress Note Anesthesia document: Postop Eval 1 completed: Yes 08/31/24 1434 > Date _ Ruy Gallagher MD Cosigner Signature: Date CC: ~ Signed [facility]03-09-2025 Consult note [facility] Medical Records Department [address] [place] [address] Anesthesia Postop Eval II 08/31/24 1434 MR#: [id number] Acct: [id number] Name: GALILEA GLASS Rep #:[id number] : 1975 48 From: Ruy Gallagher MD PCP: Dr. Milton Cody MD Status:ADM I N Y Race: C Location: [place] [address] Anesthesia Postop Eval I Sum Postop Eval Completion status Anesthesia document: Postop Eval 1 completed: Yes Anesthesia Postop Eval I Summary Anesthesia Postop Eval I Summary: Anesthesia Postop Eval I: Assessment Summary Airway patent Yes 08/31/24 14:34 Spontaneous unlabored Yes 08/31/24 14:34 respirations Mental status Awake 08/31/24 14:34 nausea No 08/31/24 14:34 Vomiting No 08/31/24 14:34 Anesthesia Postop Eval I: Fluid Summary Crystalloid volume administer 1,800 08/31/24 14:34 (ml) Colloids volume administered ( ml) Blood Product volume administered (ml) Total IV fluid infused 1,800 08/31/24 14:34 Anesthesia Postop Eval I: Summary Notes Anesthesia Complication No 08/31/24 14:34 Anesthesia Complication Comment: Post-operative progress note Anesthesia: Postop Eval II Evaluation Mental status: Awake Pain Level: 0 nausea: No Vomiting: No 08/31/24 1434 > Date _ Ruy Gallagher MD Cosigner Signature: Date CC: ~ Signed [facility]03-09-2025 Consult note Author Ruy gayle [facility] Note Date/Time August 31, 2024 8:10 am [facility] Medical Records Department [address] [facility] [place] [address] Pre-Anesthesia Evaluation 08/31/24 0809 MR#: [id number] Acct: [id number] Name: GALILEA GLASS Rep #:[id number] : 1975 48 From: Ruy Gallagher MD PCP: Dr. Milton Cody MD Status:ADM I N Y Race: C Location: [place] [address] 41 ASA Classification* ASA Classification ASA Classification: 2 and E Assessment & Plan Anesthesia* Anesthesia Assessment Anesthesia Assessment: Discussed sedation and/or anesthesia options, risks, benefits, and alternatives with patient/parents/legal guardian/POA. Questions invited. The patient/parents/legal guardian/POA seems to understand and agrees to proceedwith anesthesia plan. Reviewed the physical assessment, medical history, allergy history and patient home medications list prior to surgery/procedure/anesthetic and documented any changes. Performed airway and anesthesia risk assessments. Anesthesia Type Anesthesia Type: General Anesthesia Focused Assessment* Temperature: 98.2 F Pulse Rate: 71 Blood Pressure: 128/84 Respiratory Rate: 18 Pulse Ox: 96 Airway Assessment Mouth opens: >3 cm Mallampati Score: II Focused Labs Anesthesia Preop lab: CBC WBC 8.4 K/mm3 (4.4-11.0) 08/30/24 08:02 08/30/24 RBC 4.37 M/mm3 (4.2-5.4) 08/30/24 08:02 08/30/24 Hgb 12.0 g/dL (12.0-15.0) 08/30/24 08:02 08/30/24 Hct 35.6 % (37-47) L 08/30/24 08:02 08/30/24 Plt Count 157 K/mm3 (150-450) 08/30/24 08:02 08/30/24 CHEMISTRY Potassium 3.6 mmol/L (3.3-5.1) 08/30/24 08:02 08/30/24 Sodium 139 mmol/L (133-145) 08/30/24 08:02 08/30/24 BUN 6 mg/dL (4-19) 08/30/24 08:02 08/30/24 Creatinine 0.62 mg/dL (0.70-1.20) L 08/30/24 08:02 Glucose 103 mg/dL (70-99) H 08/30/24 08:02 08/30/24 POC Glucose 108 mg/dL (74-106) H 08/30/24 06:31 08/30/24 TSH 0.14 uIU/mL (0.358-3.74) L 09/01/19 12:06 03/03/14 COAG PT 13.5 SECONDS (11.7-14.9) 08/29/24 15:11 Urine Test Negative Negative 08/29/24 16:26 08/29/24 Pre-Assessment Diagnosis/Proposed Procedure Planned Operative Procedure(s): Laproscopic Do Anesthesia History Anesthesia History - piece cutter: Anesthesia History - piece cutter Hx Hospitalization Any Problems With Anesthesia No 08/30/24 01:54 Cholinesterase deficiency No 08/30/24 01:54 You/Your Family Experience No 08/30/24 01:54 fever (hyperthermia) with Relationship Recent Exposure to Contagious Yes: RSV Positive 08/30/24 01:54 Disease Does patient have nerve No 08/30/24 01:54 stimulator Patient instructed to have device shut off --Does patient have Pacemaker No 08/29/24 18:21 or ICD? When Was Last Pacemaker Check QUESTION #4 FULL TEXT: You/Your Family Experience fever (hyperthermia) with Anesthesia Last Oral Intake Last Oral intake: Last Oral Intake NPO since 00:00 08/31/24 06:06 Meds taken in AM with sips of No 08/31/24 06:06 water? Meds patient instructed to take am of surgery PONV PONV - piece cutter: PONV - piece cutter Female HX of Motion Sickness HX of N/V After Surgery Non-Smoker Duration of Surgery greater than 60 minutes Number of Risk Factors PONV Score Height & Weight Height & Weight: Anesthesia: Height & Weight Height 5 ft 2 in 08/31/24 06:06 Weight: 92.3 kg 08/31/24 06:06 Body Mass Index (BMI) 37.2 08/31/24 06:06 Respiratory Assessment Respiratory Assessment - piece cutter: Respiratory Tract Infection Hx - piece cutter Hx Respiratory Tract Infection Yes: RSV Positive 08/30/24 01:54 STOP Sleep Apnea STOP Sleep Apnea - piece cutter: STOP Sleep Apnea - piece cutter Hx Hypertension No 08/29/24 23:54 Hx Sleep Apnea No 08/29/24 23:54 CPAP BIPAP Do you snore loudly (louder No 08/29/24 23:54 than talking or can be heard Do you often feel tired/ No 08/29/24 23:54 fatigued/ sleepy during daytime? Has anyone observed you stop No 08/29/24 23:54 breathing during sleep? STOP Results Negative 08/29/24 23:54 QUESTION #5 FULL TEXT : Do you snore loudly (louder than talking or can be heard through closed doors)? Tobacco Use History Tobacco Use History - piece cutter: Tobacco Use History - piece cutter Tobacco Use Smoking Status Never smoker 08/29/24 23:54 Hx Tobacco Use No 08/29/24 23:54 Years Smoking Packs Smoked per Day Smoking Cessation Date was within the last 15 years Hx Smoking Cessation Date Hx Smoking Cessation Counseling Hematologic Medial History Hematologic Hx - piece cutter: Hematologic Medical Hx - lifestyle consultant Hx of Blood Transfusion No 08/29/24 23:54 Hx of Transfusion in last 3 No 08/29/24 23:54 Months Date of Last Transfusion (if within last 3 months) Ever experience any problems No 08/29/24 23:54 with transfusion(s)? Specify any problems Hx of Preganancy in last 3 No 08/29/24 23:54 Months Nurse Filling Out Transfusion JSNOW 08/29/24 23:54 & Questions: Date: 08/30/24 08/29/24 23:54 Time: 00:05 08/29/24 23:54 Patient unable to answer at this time (ie. confused, unrespo /Reproduction History /Reproductive History - piece cutter: /Reproductive Hx- piece cutter Hx Now No 08/30/24 01:54 Gestational Age (in weeks): EDC: Hx Hx Para Hx Section SAB No 08/30/24 01:54 Active Medications Active Medications: Current Medications Generic Name Dose Route Start Last Admin Trade Name Freq PRN Reason Stop Dose Admin Acetaminophen 650 mg 08/29/24 23:53 08/30/24 21:55 Acetaminophen 325 Mg Tablet PO 650 mg Q6H PRN PRN Administration Pain 1-10 Or Fever>100.7 Enoxaparin Sodium 40 mg 08/30/24 10:00 08/30/24 08:35 Enoxaparin 40 Mg/0.4 Ml Syringe SC Not Given DAILY CAROLEE Glucagon 1 mg 08/29/24 23:53 Glucagon 1 Mg/Ml Syringe IM X1 PRN Hypoglycemia Protocol Levofloxacin 750 mg in 150 mls @ 100 mls/hr 08/30/24 10:00 08/30/24 10:05 Levaquin Iv IV Infused Q24 CAROLEE Infusion Metronidazole 500 mg in 100 mls @ 100 mls/hr 08/30/24 06:00 08/31/24 05:49 Flagyl IV 100 mls/hr Q8 CAROLEE Administration Dextrose 250 mls @ 0 mls/hr 08/29/24 23:53 Dextrose 10%-Water IV .Q0M PRN HYPOGLYCEMIA Protocol As Directed Clindamycin Phosphate 900 mg in 50 mls @ 75 mls/hr 08/31/24 08:00 Cleocin IV 08/31/24 08:39 PREOP ONE Levothyroxine Sodium 25 mcg 08/30/24 06:00 08/30/24 05:21 Levothyroxine 25 Mcg Tablet PO 25 mcg [id number] CAROLEE Administration Melatonin 3 mg 08/29/24 23:53 Melatonin 3 Mg Tablet PO QHS PRN PRN INSOMNIA Ondansetron HCl 4 mg 08/29/24 23:53 Ondansetron 4 Mg/2 Ml Vial IV Q8H PRN PRN NAUSEA/VOMITING Sodium Chloride 10 - 40 ml 08/29/24 23:57 08/30/24 21:48 0.9% Saline Lock 10 Ml Syringe IV 20 ml UD PRN Administration SALINE FLUSH Thyroid 60 mg 08/30/24 10:00 08/30/24 05:21 Thyroid 60 Mg Tablet PO 60 mg DAILY CAROLEE Administration PFSH Medical History PCOS (polycystic ovarian syndrome) Migraine headache Home Medications ?Medication ?Instructions ?Recorded ?Last Taken ?Type thyroid (pork) 60 mg tablet 60 mg PO DAILY 08/23/20 History ([place] Thyroid) cholecalciferol (vitamin D3) 1 tab PO DAILY 08/29/24 U nknown History levothyroxine 25 mcg tablet 25 mcg PO SUTUWETHSA 08/2908/29/24 History magnesium citrate 125 mg capsule 250 mg PO QHS 5 Unknown History metformin 500 mg tablet 500 mg PO DAILY 08/29/24 Unk nown History Allergy/AdvReac Type Severity Reaction Status Date / Time Penicillins Allergy Intermediate Hives Verified 08/30/24 00:13 chlorhexidine Allergy Mild Rash Verified 08/30/24 00:13 Family History Other Cancer Diabetes Heart disease Hypertension Surgical History History of lobectomy of thyroid Social History household members: spouse housing: house Smoking Status: Never smoker Review of Systems (Anesthesia) ROS Narrative System reviewed and no additional complaints, except as documented. 08/31/24 0810 <Electronically signed by Ruy Gallagher MD > Date _ Ruy Gallagher MD Cosigner Signature: Date CC: ~ Signed [facility] Work Phone: [phone] Consult note [facility] Medical Records Department [address] [place] [address] Pre-Anesthesia Evaluation 08/31/24808 MR#: [id number] Acct: [id number] Name: GALILEA GLASS Rep #:[id number] : 1975 48 From: Ruy Gallagher MD PCP: Dr. Milton Cody MD Status:ADM I N Y Race: C Location: [place] [address] ASA Classification* ASA Classification ASA Classification: 2 and E Assessment & Plan Anesthesia* Anesthesia Assessment Anesthesia Assessment: Discussed sedation and/or anesthesia options, risks, benefits, and alternatives with patient/parents/legal guardian/POA. Questions invited. The patient/parents/legal guardian/POA seems to understand and agrees to proceedwith anesthesia plan. Reviewed the physical assessment, medical history, allergy history and patient home medications list prior to surgery/procedure/anesthetic and documented any changes. Performed airway and anesthesia risk assessments. Anesthesia Type Anesthesia Type: General Anesthesia Focused Assessment* Temperature: 98.2 F Pulse Rate: 71 Blood Pressure: 128/84 Respiratory Rate: 18 Pulse Ox: 96 Airway Assessment Mouth opens: >3 cm Mallampati Score: II Focused Labs Anesthesia Preop lab: CBC WBC 8.4 K/mm3 (4.4-11.0) 08/30/24 08:02 08/30/24 RBC 4.37 M/mm3 (4.2-5.4) 08/30/24 08:02 08/30/24 Hgb 12.0 g/dL (12.0-15.0) 08/30/24 08:02 08/30/24 Hct 35.6 % (37-47) L 08/30/24 08:02 08/30/24 Plt Count 157 K/mm3 (150-450) 08/30/24 08:02 08/30/24 CHEMISTRY Potassium 3.6 mmol/L (3.3-5.1) 08/30/24 08:02 08/30/24 Sodium 139 mmol/L (133-145) 08/30/24 08:02 08/30/24 BUN 6 mg/dL (4-19) 08/30/24 08:02 08/30/24 Creatinine 0.62 mg/dL (0.70-1.20) L 08/30/24 08:02 Glucose 103 mg/dL (70-99) H 08/30/24 08:02 08/30/24 POC Glucose 108 mg/dL (74-106) H 08/30/24 06:31 08/30/24 TSH 0.14 uIU/mL (0.358-3.74) L 09/01/19 12:06 03/03/14 COAG PT 13.5 SECONDS (11.7-14.9) 08/29/24 15:11 Urine Test Negative Negative 08/29/24 16:26 08/29/24 Pre-Assessment Diagnosis/Proposed Procedure Planned Operative Procedure(s): Laproscopic Do Anesthesia History Anesthesia History - piece cutter: Anesthesia History - piece cutter Hx Hospitalization Any Problems With Anesthesia No 08/30/24 01:54 Cholinesterase deficiency No 08/30/24 01:54 You/Your Family Experience No 08/30/24 01:54 fever (hyperthermia) with Relationship Recent Exposure to Contagious Yes: RSV Positive 08/30/24 01:54 Disease Does patient have nerve No 08/30/24 01:54 stimulator Patient instructed to have device shut off --Does patient have Pacemaker No 08/29/24 18:21 or ICD? When Was Last Pacemaker Check QUESTION #4 FULL TEXT: You/Your Family Experience fever (hyperthermia) with Anesthesia Last Oral Intake Last Oral intake: Last Oral Intake NPO since 00:00 08/31/24 06:06 Meds taken in AM with sips of No 08/31/24 06:06 water? Meds patient instructed to take am of surgery PONV PONV - piece cutter: PONV - piece cutter Female HX of Motion Sickness HX of N/V After Surgery Non-Smoker Duration of Surgery greater than 60 minutes Number of Risk Factors PONV Score Height & Weight Height & Weight: Anesthesia: Height & Weight Height 5 ft 2 in 08/31/24 06:06 Weight: 92.3 kg 08/31/24 06:06 Body Mass Index (BMI) 37.2 08/31/24 06:06 Respiratory Assessment Respiratory Assessment - piece cutter: Respiratory Tract Infection Hx - piece cutter Hx Respiratory Tract Infection Yes: RSV Positive 08/30/24 01:54 STOP Sleep Apnea STOP Sleep Apnea - piece cutter: STOP Sleep Apnea - piece cutter Hx Hypertension No 08/29/24 23:54 Hx Sleep Apnea No 08/29/24 23:54 CPAP BIPAP Do you snore loudly (louder No 08/29/24 23:54 than talking or can be heard Do you often feel tired/ No 08/29/24 23:54 fatigued/ sleepy during daytime? Has anyone observed you stop No 08/29/24 23:54 breathing during sleep? STOP Results Negative 08/29/24 23:54 QUESTION #5 FULL TEXT : Do you snore loudly (louder than talking or can be heard through closeddoors)? Tobacco Use History Tobacco Use History - piece cutter: Tobacco Use History - piece cutter Tobacco Use Smoking Status Never smoker 08/29/24 23:54 Hx Tobacco Use No 08/29/24 23:54 Years Smoking Packs Smoked per Day Smoking Cessation Date was within the last 15 years Hx Smoking Cessation Date Hx Smoking Cessation Counseling Hematologic Medial History Hematologic Hx - piece cutter: Hematologic Medical Hx - lifestyle consultant Hx of Blood Transfusion No 08/29/24 23:54 Hx of Transfusion in last 3 No 08/29/24 23:54 Months Date of Last Transfusion (if within last 3 months) Ever experience any problems No 08/29/24 23:54 with transfusion(s)? Specify any problems Hx of Preganancy in last 3 No 08/29/24 23:54 Months Nurse Filling Out Transfusion JSNOW 08/29/24 23:54 & Questions: Date: 08/30/24 08/29/24 23:54 Time: 00:05 08/29/24 23:54 Patient unable to answer at this time (ie. confused, unrespo /Reproduction History /Reproductive History - piece cutter: /Reproductive Hx- piece cutter Hx Now No 08/30/24 01:54 Gestational Age (in weeks): EDC: Hx Hx Para Hx Section SAB No 08/30/24 01:54 Active Medications Active Medications: Current Medications Generic Name Dose Route Start Last Admin Trade Name Freq PRN Reason Stop Dose Admin Acetaminophen 650 mg 08/29/24 23:53 08/30/24 21:55 Acetaminophen 325 Mg Tablet PO 650 mg Q6H PRN PRN Administration Pain 1-10 Or Fever>100.7 Enoxaparin Sodium 40 mg 08/30/24 10:00 08/30/24 08:35 Enoxaparin 40 Mg/0.4 Ml Syringe SC Not Given DAILY CAROLEE Glucagon 1 mg 08/29/24 23:53 Glucagon 1 Mg/Ml Syringe IM X1 PRN Hypoglycemia Protocol Levofloxacin 750 mg in 150 mls @ 100 mls/hr 08/30/24 10:00 08/30/24 10:05 Levaquin Iv IV Infused Q24 CAROLEE Infusion Metronidazole 500 mg in 100 mls @ 100 mls/hr 08/30/24 06:00 08/31/24 05:49 Flagyl IV 100 mls/hr Q8 CAROLEE Administration Dextrose 250 mls @ 0 mls/hr 08/29/24 23:53 Dextrose 10%-Water IV .Q0M PRN HYPOGLYCEMIA Protocol As Directed Clindamycin Phosphate 900 mg in 50 mls @ 75 mls/hr 08/31/24 08:00 Cleocin IV 08/31/24 08:39 PREOP ONE Levothyroxine Sodium 25 mcg 08/30/24 06:00 08/30/24 05:21 Levothyroxine 25 Mcg Tablet PO 25 mcg [id number]@0600 CAROLEE Administration Melatonin 3 mg 08/29/24 23:53 Melatonin 3 Mg Tablet PO QHS PRN PRN INSOMNIA Ondansetron HCl 4 mg 08/29/24 23:53 Ondansetron 4 Mg/2 Ml Vial IV Q8H PRN PRN NAUSEA/VOMITING Sodium Chloride 10 - 40 ml 08/29/24 23:57 08/30/24 21:48 0.9% Saline Lock 10 Ml Syringe IV 20 ml UD PRN Administration SALINE FLUSH Thyroid 60 mg 08/30/24 10:00 08/30/24 05:21 Thyroid 60 Mg Tablet PO 60 mg DAILY CAROLEE Administration PFSH Medical History PCOS (polycystic ovarian syndrome) Migraine headache Home Medications ?Medication ?Instructions ?Recorded ?Last Taken ?Type thyroid (pork) 60 mg tablet 60 mg PO DAILY 08/23/20 History ([place] Thyroid) cholecalciferol (vitamin D3) 1 tab PO DAILY 08/29/24 U nknown History levothyroxine 25 mcg tablet 25 mcg PO SUTUWETHSA 08/2908/29/24 History magnesium citrate 125 mg capsule 250 mg PO QHS 5 Unknown History metformin 500 mg tablet 500 mg PO DAILY 08/29/24 Unk nown History Allergy/AdvReac Type Severity Reaction Status Date / Time Penicillins Allergy Intermediate Hives Verified 08/30/24 00:13 chlorhexidine Allergy Mild Rash Verified 08/30/24 00:13 Family History Other Cancer Diabetes Heart disease Hypertension Surgical History History of lobectomy of thyroid Social History household members: spouse housing: house Smoking Status: Never smoker Review of Systems (Anesthesia) ROS Narrative System reviewed and no additional complaints, except as documented. 08/31/24 0810 > Date _ Ruy Gallagher MD Cosigner Signature: Date CC: ~ Signed [facility]03-08-2025 Progress note Author Deacon Burgos [facility] Note Date/Time August 30, 2024 12:4 1pm [facility] Medical Records Department [address] [place] [address] Progress Note - Surgery 08/30/24 0800 MR#: [id number] Acct: [id number] Name: GALILEA GLASS Rep #:[id number] : 1975 48 From: Deacon Duckworth PCP: Dr. Milton Cody MD Status:ADM I N [facility] Subject[facility] Subjective Patient seen and evaluated during AM rounds. She is resting in bed but states she had a restless night. She also reports that she is febrile this morning. She positively, confirms that her back pain with that she presented is resolved. Objective Data Objective Data Vital Signs: Vital Signs Temp Pulse Resp BP Pulse Ox O2 Del Method 97 F L 104 H 20 H 119/74 96 Room Air 08/30/24 07:41 08/30/24 07:41 08/30/24 07:41 08/30/24 07:41 08/30/24 07:41 08/30/24 04:00 Oxygen Delivery Method Room Air Weight: 208 lb 8.917 oz Body Mass Index (BMI) 38.1 Intake & Output: Intake and Output for Last 24 Hours 08/28/24 08/29/24 08/30/24 23:59 23:59 23:59 Intake Total 1100 / 1100 1250 / 1250 Balance 1100 / 1100 1250 / 1250 Lab / Micro Data 08/30/24 08:02 08/30/24 08:02 Labs: Laboratory Results - last 24 hr 08/29/24 15:11: WBC 13.5 H, RBC 5.33, Hgb 14.6, Hct 44.1, MCV 82.7, MCH 27.4, MCHC 33.1, RDW Std Deviation 38.4, RDW Coeff of Fabio 12.8, Plt Count 202, MPV 10.7, Immature Gran % (Auto) 0.600, Neut % (Auto) 93.9 H, Lymph % (Auto) 2.0 L, Stanley % (Auto) 3.3, Eos % (Auto) 0.0, Baso % (Auto) 0.2, Absolute Neuts (auto) 12.6 H, Absolute Lymphs (auto) 0.27 L, Nucleated RBC % 0, PT 13.5, INR 1.0, APTT27.9, Sodium 134, Potassium 3.9, Chloride 99, Carbon Dioxide 20.2 L, Anion Gap 14, BUN 8, Creatinine 0.74, Estim Creat Clear Calc 95.78, Est GFR (MDRD) Non-Af 99, BUN/Creatinine Ratio 10.3, Glucose 175 H, Lactic Acid 1.6, Calcium 9.0, Total Bilirubin 4.42 H, Direct Bilirubin 2.99 H, AST 250 H, ALT 628 H, Alkaline Phosphatase 266 H, Total Protein 7.4, Albumin 4.3, Globulin 3.2, Lipase 13 08/29/24 16:26: Urine Color Straw, Urine Clarity Clear, Urine pH 6.0, Ur Specific Goltry 1.010, Urine Protein 30 H, Urine Glucose (UA) Normal, Urine Ketones 50 H, Urine Occult Blood 25 H, Urine Nitrite Positive H, Urine Bilirubin6 H, Urine Urobilinogen 8 H, Ur Leukocyte Esterase 25 H, Urine RBC 0-5 SEEN, Urine WBC 5-10 SEEN, Ur Squamous Epith Cells 0-5 SEEN, Urine Bacteria 1+, Urine Mucus RARE, Urine Test Negative 08/30/24 00:39: POC Glucose 115 H 08/30/24 06:31: POC Glucose 108 H Micro: Microbiology 08/29/24 15:40 Blood Culture (Wb) - Venous Blood Culture - Preliminary 08/29/24 15:11 Blood Culture (Wb) - Venous Blood Culture - Preliminary 08/29/24 13:50 Mucosa - Nose SARS-CoV-2, Influenza & RSV (PCR) - Final RSV Radiography Diagnostic Testing: Radiology Impression Abdomen/Pelvis CT 08/29/24 15:09 IMPRESSION: Gallstones. Possible gallstone in the neck of the gallbladder. Mild degree of central intrahepatic biliary ductal dilatation. Correlation withultrasound recommended for further evaluation. Fatty infiltration of the liver. One or more dose reduction techniques were used (e.g., Automated exposure control, adjustment of the mA and/or kV according to patient size, use of iterative reconstruction technique). Reading Location: [id number] Chest X-Ray 08/29/24 16:00 IMPRESSION: No acute abnormality is seen. Reading Location: [id number] Gallbladder Ultrasound 08/29/24 16:08 IMPRESSION: 1. Distended gallbladder with cholelithiasis. No pericholecystic fluid or significant wall thickening. Mildly dilated common bile duct measuring 8 mm. Consider MRCP for further assessment if indicated. 2. Hepatic steatosis. 3. Nonspecific hypoechoic lesion in the right hepatic lobe, not a simple cyst. Recommend further evaluation with nonemergent contrast-enhanced MRI. Reading Location[facility] Cholangiopancreatogram 08/29/24 21:30 IMPRESSION: Fluoroscopy during ERCP as above. Reading Location: [facility] Physical Exam Const oriented x3 and no apparent distress Constitutional Narrative: Persistently jaundiced Resp normal respiratory effort GI GI Narrative: Mildly distended, soft, nontender to palpation apart from left lower quadrant Assessment & Plan Assessment/Plan (1) Obstructive jaundice: PLAN: Patient is 48-year-old female with apparent cholangitis and obstructive jaundice?likely owing to a underlying diagnosis of choledocholithiasis. Patient now status post ERCP with confirmation of choledocholithiasis. Biliary tree was cleared of debris. Patient has had some clinical improvement but reports fevers overnight and feeling restless and still less than well. Given patient's appearance I believe she would benefit from an additional day of antibiotics and then proceed for laparoscopic cholecystectomy with intraoperative cholangiography tomorrow, 08/31/2024. Patient initially was resistant and appears to want to proceed today, but then does express understanding about bringing undue stress on her body for a procedure that is otherwise preventative (I do not believe patient has cholecystitis). Thus a diet is reinstated and patient has been booked for the operating room tomorrow. Please make n.p.o. past midnight. Please collect consent for laparoscopic cholecystectomy with intraoperative cholangiogram. Deacon Burgos MD General Surgery Endocrine Surgery Pager: [facility] [address] [place] [address], [address] [place] [address] Office: [phone] Charges/Coding Visit Charges Inpatient E&M: 11684 Subs Hosp L2 08/30/24 1341 <Electronically signed by Deacon Burgos MD> Cosigner Signature (if applicable): CC: ~ Signed [facility] Work Phone: [phone] 601-518003-08-2025 Progress note [facility] Medical Records Department [address] [place] [address] Progress Note - Surgery 08/30/24 0800 MR#: [id number] Acct: [id number] Name: GALILEA GLASS Rep #:[id number] : 1975 48 From: Deacon Duckworth PCP: Dr. Milton Cody MD Status:ADM I N Location: [place] [address] Subjective Subjective Patient seen and evaluated during AM rounds. She is resting in bed but states she had a restless night. She also reports that she is febrile this morning. She positively, confirms that her back pain with that she presented is resolved. Objective Data Objective Data Vital Signs: Vital Signs Temp Pulse Resp BP Pulse Ox O2 Del Method 97 F L 104 H 20 H 119/74 96 Room Air 08/30/24 07:41 08/30/24 07:41 08/30/24 07:41 08/30/24 07:41 08/30/24 07:41 08/30/24 04:00 Oxygen Delivery Method Room Air Weight: 208 lb 8.917 oz Body Mass Index (BMI) 38.1 Intake & Output: Intake and Output for Last 24 Hours 08/28/24 08/29/24 08/30/24 23:59 23:59 23:59 Intake Total 1100 / 1100 1250 / 1250 Balance 1100 / 1100 1250 / 1250 Lab / Micro Data 08/30/24 08:02 08/30/24 08:02 Labs: Laboratory Results - last 24 hr 08/29/24 15:11: WBC 13.5 H, RBC 5.33, Hgb 14.6, Hct 44.1, MCV 82.7, MCH 27.4, MCHC 33.1, RDW Std Deviation 38.4, RDW Coeff of Fabio 12.8, Plt Count 202, MPV 10.7, Immature Gran % (Auto) 0.600, Neut % (Auto) 93.9 H, Lymph % (Auto) 2.0 L, Stanley % (Auto) 3.3, Eos % (Auto) 0.0, Baso % (Auto) 0.2, AbsoluteNeuts (auto) 12.6 H, Absolute Lymphs (auto) 0.27 L, Nucleated RBC % 0, PT 13.5, INR 1.0, APTT27.9, Sodium 134, Potassium 3.9, Chloride 99, Carbon Dioxide 20.2 L, Anion Gap 14, BUN 8, Creatinine 0.74,Estim Creat Clear Calc 95.78, Est GFR (MDRD) Non- Af 99, BUN/Creatinine Ratio 10.3, Glucose 175 H, Lactic Acid 1.6, Calcium 9.0, Total Bilirubin 4.42 H, Direct Bilirubin 2.99 H, AST 250 H, ALT 628 H, Alkaline Phosphatase 266 H, Total Protein 7.4, Albumin 4.3, Globulin 3.2, Lipase 13 08/29/24 16:26: Urine Color Straw, Urine Clarity Clear, Urine pH 6.0, Ur Specific Goltry 1.010, Urine Protein 30 H, Urine Glucose (UA) Normal, Urine Ketones 50 H, Urine Occult Blood 25 H, Urine Nitrite Positive H, Urine Bilirubin6 H, Urine Urobilinogen 8 H, Ur Leukocyte Esterase 25 H, Urine RBC 0-5 SEEN, Urine WBC 5-10 SEEN, Ur Squamous Epith Cells 0-5 SEEN, Urine Bacteria 1+, Urine Mucus RARE, Urine Test Negative 08/30/24 00:39: POC Glucose 115 H 08/30/24 06:31: POC Glucose 108 H Micro: Microbiology 08/29/24 15:40 Blood Culture (Wb) - Venous Blood Culture - Preliminary 08/29/24 15:11 Blood Culture (Wb) - Venous Blood Culture - Preliminary 08/29/24 13:50 Mucosa - Nose SARS-CoV-2, Influenza & RSV (PCR) - Final RSV Radiography Diagnostic Testing: Radiology Impression Abdomen/Pelvis CT 08/29/24 15:09 IMPRESSION: Gallstones. Possible gallstone in the neck of the gallbladder. Mild degree of central intrahepatic biliary ductal dilatation. Correlation withultrasound recommended for further evaluation. Fatty infiltration of the liver. One or more dose reduction techniques were used (e.g., Automated exposure control, adjustment of the mA and/or kV according to patient size, use of iterative reconstruction technique). Reading Location: [id number] Chest X-Ray 08/29/24 16:00 IMPRESSION: No acute abnormality is seen. Reading Location: [id number] Gallbladder Ultrasound 08/29/24 16:08 IMPRESSION: 1. Distended gallbladder with cholelithiasis. No pericholecystic fluid or significant wall thickening. Mildly dilated common bile duct measuring 8 mm. Consider MRCP for further assessment if indicated. 2. Hepatic steatosis. 3. Nonspecific hypoechoic lesion in the right hepatic lobe, not a simple cyst. Recommend further evaluation with nonemergent contrast-enhanced MRI. Reading Location: [facility] Retro Cholangiopancreatogram 08/29/24 21:30 IMPRESSION: Fluoroscopy during ERCP as above. Reading Location: [id number] Physical Exam Const oriented x3 and no apparent distress Constitutional Narrative: Persistently jaundiced Resp normal respiratory effort GI GI Narrative: Mildly distended, soft, nontender to palpation apart from left lower quadrant Assessment & Plan Assessment/Plan (1) Obstructive jaundice: PLAN: Patient is 48-year-old female with apparent cholangitis and obstructive jaundice?likely owingto a underlying diagnosis of choledocholithiasis. Patient now status post ERCP with confirmation of choledocholithiasis. Biliary tree was cleared of debris. Patient has had some clinical improvement but reports fevers overnight and feeling restless and still less than well. Given patient's appearance I believe she would benefit from an additional day of antibiotics and then proceed for laparoscopic cholecystectomy with intraoperative cholangiography tomorrow, 08/31/2024. Patient initially was resistant and appears to want to proceed today, but then does express understanding about bringing undue stress on her body for a procedure that is otherwise preventative (I do not believe patient has cholecystitis). Thus a diet is reinstated and patient has been booked for the operating room tomorrow. Please make n.p.o. past midnight. Please collect consent for laparoscopic cholecystectomy with intraoperative cholangiogram. Deacon Burgos MD General Surgery Endocrine Surgery Pager: [facility] [address] [place] [address], [address] [place] [address] Office: [phone] Charges/Coding Visit Charges Inpatient E&M: 49249 Subs Hosp L2 08/30/24 1341 Cosigner Signature (if applicable): CC: ~ Signed [facility]03-08-2025 Progress note Author Jonathan Plata [facility] Note Date/Time August 30, 2024 9:17 am [facility] Medical Records Department [address] [place] [address] Progress Note - Hospitalist 08/30/24 0758 MR#: [id number] Acct: [id number] Name: GALILEA GLASS Rep #:[id number] : 1975 48 From: Jonathan Plata MD PCP: Dr. Milton Cody MD Status:ADM I N Location: [place] [address] Reason for Visit Reason for Visit: Diagnoses Liver disease, unspecified (08/29/24) Other cholangitis (08/29/24) Obstruction of bile duct (08/29/24) Subjective Subjective Patient is a 48-year-old female who presented [facility] ED on 08/29/2024 with abdominal pain with nausea, fever/chills and URI symptoms. Objective Data Objective Data Vital Signs: Vital Signs Temp Pulse Resp BP Pulse Ox O2 Del Method 97 F L 104 H 20 H 119/74 96 Room Air 08/30/24 07:41 08/30/24 07:41 08/30/24 07:41 08/30/24 07:41 08/30/24 07:41 08/30/24 04:00 Oxygen Delivery Method Room Air Weight: 94.6 kg Body Mass Index (BMI) 38.1 Intake & Output: Intake and Output for Last 24 Hours 08/28/24 08/29/24 08/30/24 23:59 23:59 23:59 Intake Total 1100 / 1100 1250 / 1250 Balance 1100 / 1100 1250 / 1250 Lab / Micro Data 08/30/24 08:02 08/30/24 08:02 Labs: Laboratory Results - last 24 hr 08/29/24 15:11: WBC 13.5 H, RBC 5.33, Hgb 14.6, Hct 44.1, MCV 82.7, MCH 27.4, MCHC 33.1, RDW Std Deviation 38.4, RDW Coeff of Fabio 12.8, Plt Count 202, MPV 10.7, Immature Gran % (Auto) 0.600, Neut % (Auto) 93.9 H, Lymph % (Auto) 2.0 L, Stanley % (Auto) 3.3, Eos % (Auto) 0.0, Baso % (Auto) 0.2, Absolute Neuts (auto) 12.6 H, Absolute Lymphs (auto) 0.27 L, Nucleated RBC % 0, PT 13.5, INR 1.0, APTT27.9, Sodium 134, Potassium 3.9, Chloride 99, Carbon Dioxide 20.2 L, Anion Gap 14, BUN 8, Creatinine 0.74, Estim Creat Clear Calc 95.78, Est GFR (MDRD) Non-Af 99, BUN/Creatinine Ratio 10.3, Glucose 175 H, Lactic Acid 1.6, Calcium 9.0, Total Bilirubin 4.42 H, Direct Bilirubin 2.99 H, AST 250 H, ALT 628 H, Alkaline Phosphatase 266 H, Total Protein 7.4, Albumin 4.3, Globulin 3.2, Lipase 13 08/29/24 16:26: Urine Color Straw, Urine Clarity Clear, Urine pH 6.0, Ur Specific Goltry 1.010, Urine Protein 30 H, Urine Glucose (UA) Normal, Urine Ketones 50 H, Urine Occult Blood 25 H, Urine Nitrite Positive H, Urine Bilirubin6 H, Urine Urobilinogen 8 H, Ur Leukocyte Esterase 25 H, Urine RBC 0-5 SEEN, Urine WBC 5-10 SEEN, Ur Squamous Epith Cells 0-5 SEEN, Urine Bacteria 1+, Urine Mucus RARE, Urine Test Negative 08/30/24 00:39: POC Glucose 115 H 08/30/24 06:31: POC Glucose 108 H Micro: Microbiology 08/29/24 15:40 Blood Culture (Wb) - Venous Blood Culture - Preliminary 08/29/24 15:11 Blood Culture (Wb) - Venous Blood Culture - Preliminary 08/29/24 13:50 Mucosa - Nose SARS-CoV-2, Influenza & RSV (PCR) - Final RSV Radiography Diagnostic Testing: Radiology Impression Abdomen/Pelvis CT 08/29/24 15:09 IMPRESSION: Gallstones. Possible gallstone in the neck of the gallbladder. Mild degree of central intrahepatic biliary ductal dilatation. Correlation withultrasound recommended for further evaluation. Fatty infiltration of the liver. One or more dose reduction techniques were used (e.g., Automated exposure control, adjustment of the mA and/or kV according to patient size, use of iterative reconstruction technique). Reading Location: [id number] Chest X-Ray 08/29/24 16:00 IMPRESSION: No acute abnormality is seen. Reading Location: [id number] Gallbladder Ultrasound 08/29/24 16:08 IMPRESSION: 1. Distended gallbladder with cholelithiasis. No pericholecystic fluid or significant wall thickening. Mildly dilated common bile duct measuring 8 mm. Consider MRCP for further assessment if indicated. 2. Hepatic steatosis. 3. Nonspecific hypoechoic lesion in the right hepatic lobe, not a simple cyst. Recommend further evaluation with nonemergent contrast-enhanced MRI. Reading Location: [facility] Cholangiop[facility]reat[facility] 08/29/24 21:30 IMPRESSION: Fluoroscopy during ERCP as above. Reading Location: [facility] Physical Exam Narrative GENERAL: cooperative HEENT: Atraumatic; normocephalic EYES; Anicteric, Normal Conjunctiva NECK; supple, normal thyroid, RESPIRATORY: Diminished to auscultation CARDIOVASCULAR: Regular S1 S2, GI: soft, normoactive bowel sounds, : No Renal angle tenderness; EXTREMITIES: No edema, no clubbing, MUSCULOSKELETAL: no muscle wasting NEURO: Awake; no lateralizing signs. SKIN: No Rash PSYCH; Flat affect Assessment & Plan Assessment/Plan (1) Ascending cholangitis: (2) Obstructive jaundice: PLAN: Plan Patient is a 48-year-old female who presented [facility] ED on 08/29/2024 with abdominal pain with nausea, fever/chills and URI symptoms. 1. Choledocholithiasis with concern for acute cholangitis ? CT of the abdomen and pelvis obtained on admission demonstrated Distended gallbladder with cholelithiasis. No pericholecystic fluid or significant wall thickening. Mildly dilated common bile duct measuring 8 mm. Hepatic steatosis. Nonspecific hypoechoic lesion in the right hepatic lobe, not a simple cyst. Patient was started on broad-spectrum antibiotic therapy with Levaquin and Flagyl consult placed to general surgery and GI. Patient underwent ERCP the dayprior results reviewed. Plans for patient to undergo cholecystectomy on 08/31/2024 2. RSV infection ? Patient tested positive for RSV on admit. Mild URI symptoms noted. Chest x-ray unremarkable. Treated with symptomatic management. Contact precautions in place. 3. Hypothyroidism ? Patient is on patient is on pork thyroid supplement home dose continued 4. PCOS ? Patient is on metformin 5. Class II obesity with BMI of 38.1 ? Complicating care weight loss advised 6. DVT prophylaxis ? On enoxaparin Time spent in the patient's overall evaluation,decision-making process, review of diagnostic data, adjustment of management, discussion with other providers, nursing nursing and ancillary staff involved in patient's care documentation, 50 minutes Charges/Coding Visit Charges Inpatient E&M: 93296 Subs Hosp L3 08/30/24 1017 <Electronically signed by Jonathan Plata MD> Cosigner Signature (if applicable): CC: ~ Signed [facility] Work Phone: 1(978) 237-686603-08-2025 Progress note [facility] Medical Records Department [address] [place] [address] Progress Note - Hospitalist 08/30/24 0758 MR#: [id number] Acct: [id number] Name: GALILEA GLASS Rep #:[id number] : 1975 48 From: Jonathan Plata MD PCP: Dr. Milton Cody MD Status:ADM I N Location: [place] [address] Reason for Visit Reason for Visit: Diagnoses Liver disease, unspecified (08/29/24) Other cholangitis (08/29/24) Obstruction of bile duct (08/29/24) Subjective Subjective Patient is a 48-year-old female who presented [facility] ED on 08/29/2024 with abdominal pain with nausea, fever/chills and URI symptoms. Objective Data Objective Data Vital Signs: Vital Signs Temp Pulse Resp BP Pulse Ox O2 Del Method 97 F L 104 H 20 H 119/74 96 Room Air 08/30/24 07:41 08/30/24 07:41 08/30/24 07:41 08/30/24 07:41 08/30/24 07:41 08/30/24 04:00 Oxygen Delivery Method Room Air Weight: 94.6 kg Body Mass Index (BMI) 38.1 Intake & Output: Intake and Output for Last 24 Hours 08/28/24 08/29/24 08/30/24 23:59 23:59 23:59 Intake Total 1100 / 1100 1250 / 1250 Balance 1100 / 1100 1250 / 1250 Lab / Micro Data 08/30/24 08:02 08/30/24 08:02 Labs: Laboratory Results - last 24 hr 08/29/24 15:11: WBC 13.5 H, RBC 5.33, Hgb 14.6, Hct 44.1, MCV 82.7, MCH 27.4, MCHC 33.1, RDW Std Deviation 38.4, RDW Coeff of Fabio 12.8, Plt Count 202, MPV 10.7, Immature Gran % (Auto) 0.600, Neut % (Auto) 93.9 H, Lymph % (Auto) 2.0 L, Stanley % (Auto) 3.3, Eos % (Auto) 0.0, Baso % (Auto) 0.2, AbsoluteNeuts (auto) 12.6 H, Absolute Lymphs (auto) 0.27 L, Nucleated RBC % 0, PT 13.5, INR 1.0, APTT27.9, Sodium 134, Potassium 3.9, Chloride 99, Carbon Dioxide 20.2 L, Anion Gap 14, BUN 8, Creatinine 0.74,Estim Creat Clear Calc 95.78, Est GFR (MDRD) Non- Af 99, BUN/Creatinine Ratio 10.3, Glucose 175 H, Lactic Acid 1.6, Calcium 9.0, Total Bilirubin 4.42 H, Direct Bilirubin 2.99 H, AST 250 H, ALT 628 H, Alkaline Phosphatase 266 H, Total Protein 7.4, Albumin 4.3, Globulin 3.2, Lipase 13 08/29/24 16:26: Urine Color Straw, Urine Clarity Clear, Urine pH 6.0, Ur Specific Goltry 1.010, Urine Protein 30 H, Urine Glucose (UA) Normal, Urine Ketones 50 H, Urine Occult Blood 25 H, Urine Nitrite Positive H, Urine Bilirubin6 H, Urine Urobilinogen 8 H, Ur Leukocyte Esterase 25 H, Urine RBC 0-5 SEEN, Urine WBC 5-10 SEEN, Ur Squamous Epith Cells 0-5 SEEN, Urine Bacteria 1+, Urine Mucus RARE, Urine Test Negative 08/30/24 00:39: POC Glucose 115 H 08/30/24 06:31: POC Glucose 108 H Micro: Microbiology 08/29/24 15:40 Blood Culture (Wb) - Venous Blood Culture - Preliminary 08/29/24 15:11 Blood Culture (Wb) - Venous Blood Culture - Preliminary 08/29/24 13:50 Mucosa - Nose SARS-CoV-2, Influenza & RSV (PCR) - Final RSV Radiography Diagnostic Testing: Radiology Impression Abdomen/Pelvis CT 08/29/24 15:09 IMPRESSION: Gallstones. Possible gallstone in the neck of the gallbladder. Mild degree of central intrahepatic biliary ductal dilatation. Correlation withultrasound recommended for further evaluation. Fatty infiltration of the liver. One or more dose reduction techniques were used (e.g., Automated exposure control, adjustment of the mA and/or kV according to patient size, use of iterative reconstruction technique). Reading Location: [id number] Chest X-Ray 08/29/24 16:00 IMPRESSION: No acute abnormality is seen. Reading Location: [id number] Gallbladder Ultrasound 08/29/24 16:08 IMPRESSION: 1. Distended gallbladder with cholelithiasis. No pericholecystic fluid or significant wall thickening. Mildly dilated common bile duct measuring 8 mm. Consider MRCP for further assessment if indicated. 2. Hepatic steatosis. 3. Nonspecific hypoechoic lesion in the right hepatic lobe, not a simple cyst. Recommend further evaluation with nonemergent contrast-enhanced MRI. Reading Location: [facility] Retro Cholangiopancreatogram 08/29/24 21:30 IMPRESSION: Fluoroscopy during ERCP as above. Reading Location: [id number] Physical Exam Narrative GENERAL: cooperative HEENT: Atraumatic; normocephalic EYES; Anicteric, Normal Conjunctiva NECK; supple, normal thyroid, RESPIRATORY: Diminished to auscultation CARDIOVASCULAR: Regular S1 S2, GI: soft, normoactive bowel sounds, : No Renal angle tenderness; EXTREMITIES: No edema, no clubbing, MUSCULOSKELETAL: no muscle wasting NEURO: Awake; no lateralizing signs. SKIN: No Rash PSYCH; Flat affect Assessment & Plan Assessment/Plan (1) Ascending cholangitis: (2) Obstructive jaundice: PLAN: Plan Patient is a 48-year-old female who presented [facility] ED on 08/29/2024 with abdominal pain with nausea, fever/chills and URI symptoms. 1. Choledocholithiasis with concern for acute cholangitis ? CT of the abdomen and pelvis obtained on admission demonstrated Distended gallbladder with cholelithiasis. No pericholecystic fluid or significant wall thickening. Mildly dilated common bile duct measuring 8 mm. Hepatic steatosis. Nonspecific hypoechoic lesion in the right hepatic lobe, not a simple cyst. Patient was started on broad-spectrum antibiotic therapy with Levaquin and Flagyl consult placed to general surgery and GI. Patient underwent ERCP the dayprior results reviewed. Plans for patient to undergo cholecystectomy on 08/31/2024 2. RSV infection ? Patient tested positive for RSV on admit. Mild URI symptoms noted. Chest x-ray unremarkable. Treated with symptomatic management. Contact precautions in place. 3. Hypothyroidism ? Patient is on patient is on pork thyroid supplement home dose continued 4. PCOS ? Patient is on metformin 5. Class II obesity with BMI of 38.1 ? Complicating care weight loss advised 6. DVT prophylaxis ? On enoxaparin Time spent in the patient's overall evaluation,decision-making process, review of diagnostic data, adjustment of management, discussion with other providers, nursing nursing and ancillary staff involved in patient's care documentation, 50 minutes Charges/Coding Visit Charges Inpatient E&M: 77451 Subs Hosp L3 08/30/24 1017 Cosigner Signature (if applicable): CC: ~ Signed [facility]03-08-2025 Consult note Author Ruy Gallagher [facility] Note Date/Time August 30, 2024 6:41 am [facility] Medical Records Department [address] [place] [address] Anesthesia Postop Eval I 08/29/24 2310 MR#: [id number] Acct: [id number] Name: GALILEA GLASS Rep #:[id number] : 1975 48 From: Ruy Gallagher MD PCP: Dr. Milton Cody MD Status:ADM I N Y Race: C Location: [place] [address] 09-23 Anesthesia: Postop Eval I Current Vital Signs Temperature: 97 F Pulse Rate: 104 Blood Pressure: 119/74 Respiratory Rate: 20 Pulse Ox: 96 Assessment Airway patent: Yes Spontaneous unlabored respirations: Yes Mental status: Awake and Calm nausea: No Vomiting: No Anesthesia Complication: No Fluid Hydration Crystalloid volume administer (ml): 400 Total IV fluid infused: 400 Progress Note Anesthesia document: Postop Eval 1 completed: Yes 08/30/2441 <Electronically signed by Ruy Gallagher MD > Date _ Ruy Gallagher MD Cosigner Signature: Date CC: ~ Signed [facility] Work Phone: 1(790) 170-605203-08-2025 Consult note Author Ruy [facility] Note Date/Time August 30, 2024 6:41 am [facility] Medical Records Department [address] [place] [address] Anesthesia Postop Eval II 08/29/245 MR#: [id number] Acct: [id number] Name: GALILEA GLASS Rep #:[id number] : 1975 48 From: Ruy Gallagher MD PCP: Dr. Milton Cody MD Status:ADM I N Y Race: C Location: [place] [address] 09-23 Anesthesia Postop Eval I Sum Postop Eval Completion status Anesthesia document: Postop Eval 1 completed: Yes Anesthesia Postop Eval I Summary Anesthesia Postop Eval I Summary: Anesthesia Postop Eval I: Assessment Summary Airway patent Yes 08/30/24 07:41 Spontaneous unlabored Yes 08/30/24 07:41 respirations Mental status Awake,Calm 08/30/24 07:41 nausea No 08/30/24 07:41 Vomiting No 08/30/24 07:41 Anesthesia Postop Eval I: Fluid Summary Crystalloid volume administer 400 08/30/24 07:41 (ml) Colloids volume administered ( ml) Blood Product volume administered (ml) Total IV fluid infused 400 08/30/24 07:41 Anesthesia Postop Eval I: Summary Notes Anesthesia Complication No 08/30/24 07:41 Anesthesia Complication Comment: Post-operative progress note Anesthesia: Postop Eval II Evaluation Mental status: Awake Pain Level: 2 nausea: No Vomiting: No Complications Anesthesia Complication: No 08/30/24740 <Electronically signed by Ruy Gallagher MD > Date _ Ruy Gallagher MD Cosign Signature: Date CC: ~ Signed [facility] Work Phone: 1(791) 973-727203-08-2025 Consult note [facility] Medical Records Department [address] [place] [address] Anesthesia Postop Eval I 08/29/24 2310 MR#: [id number] Acct: [id number] Name: GALILEA GLASS Rep #:[id number] : 1975 48 From: Ruy Gallagher MD PCP: Dr. Milton Cody MD Status:ADM I N Y Race: C Location: [address] Anesthesia: Postop Eval I Current Vital Signs Temperature: 97 F Pulse Rate: 104 Blood Pressure: 119/74 Respiratory Rate: 20 Pulse Ox: 96 Assessment Airway patent: Yes Spontaneous unlabored respirations: Yes Mental status: Awake and Calm nausea: No Vomiting: No Anesthesia Complication: No Fluid Hydration Crystalloid volume administer (ml): 400 Total IV fluid infused: 400 Progress Note Anesthesia document: Postop Eval 1 completed: Yes 08/30/24740 > Date _ Ruy Gallagher MD [facility] Signature: Date CC: ~ Signed [facility]03-08-2025 Consult note [facility] Medical Records Department [address] [place] [address] Anesthesia Postop Eval II 08/29/24 2325 MR#: [id number] Acct: [id number] Name: GALILAE GLASS Rep #:[id number] : 1975 48 From: Ruy Gallagher MD PCP: Dr. Milton Cody MD Status:ADM I N Y Race: C Location: [place] [address]-1 Anesthesia Postop Eval I Sum Postop Eval Completion status Anesthesia document: Postop Eval 1 completed: Yes Anesthesia Postop Eval I Summary Anesthesia Postop Eval I Summary: Anesthesia Postop Eval I: Assessment Summary Airway patent Yes 08/30/24 07:41 Spontaneous unlabored Yes 08/30/24 07:41 respirations Mental status Awake,Calm 08/30/24 07:41 nausea No 08/30/24 07:41 Vomiting No 08/30/24 07:41 Anesthesia Postop Eval I: Fluid Summary Crystalloid volume administer 400 08/30/24 07:41 (ml) Colloids volume administered ( ml) Blood Product volume administered (ml) Total IV fluid infused 400 08/30/24 07:41 Anesthesia Postop Eval I: Summary Notes Anesthesia Complication No 08/30/24 07:41 Anesthesia Complication Comment: Post-operative progress note Anesthesia: Postop Eval II Evaluation Mental status: Awake Pain Level: 2 nausea: No Vomiting: No Complications Anesthesia Complication: No 08/30/2441 > Date _ Ruy Ramirez Signature: Date CC: ~ Signed [facility]03-08-2025 Discharge summary Author Scot Gonzalez [facility] Note Date/Time August 29, 2024 10:4 3pm [facility] Medical Records Department [address] [place] [address] Emergency Department Summary 08/29/24 MR#: [id number] Acct: [id number] Name: GALILEA GLASS Rep #:[id number] : 1975 48 From: Scot Gonzalez PCP: Dr. Milton Cody MD Status:ADM I N Location: [place] [address] HPI History of Present Illness Chief Complaint: General Illness Informant: patient Narrative Narrative: Sent here after seeing PCP office. Patient reports beginning of illness 2 weeksago grandson diagnosed RSV. She has had sinus congestion. Symptoms of upper respiratory were started to improve. This past Sunday increased severe pain across her upper abdomen. Nausea when she eats. No vomiting no diarrhea no urinary symptoms however states recent urines a lot more dark in color she is taking less p.o. intake. Seeing her doctor today states had a fever tachycardic. Started having a cough. Still has upper abdominal pain that goes to her back. Denies alcohol history. Denies any abdominal surgeries. Father had pancreatic cancer. Allergies to chlorhexidine and penicillin. Prior similar symptoms: No PFSH PFSH Medical History (Updated 08/29/24 @ 23:[address] Scot Gonzalez DO) PCOS (polycystic ovarian syndrome) Migraine headache Home Medications ?Medication ?Instructions ?Recorded ?Last Taken ?Type thyroid (pork) 60 mg tablet 60 mg PO DAILY 08/23/20 History ([place] Thyroid) cholecalciferol (vitamin D3) 1 tab PO DAILY 08/29/24 U nknown History levothyroxine 25 mcg tablet 25 mcg PO SUTUWETHSA 08/2908/29/24 History magnesium citrate 125 mg capsule 250 mg PO QHS 5 Unknown History metformin 500 mg tablet 500 mg PO DAILY 08/29/24 Unk nown History Allergy/AdvReac Type Severity Reaction Status Date / Time Penicillins Allergy Intermediate Hives Verified 08/30/20 13:09 chlorhexidine Allergy Mild Rash Verified 08/30/20 13:09 Family History Other Cancer Diabetes Heart disease Hypertension Surgical History History of lobectomy of thyroid Social History household members: spouse housing: house Smoking Status: Never smoker ROS ROS ED Constitutional Constitutional ED: Reports fever(s); Denies chills or sweats ENT ENT ED: Denies sore throat Cardiovascular Cardiovascular: Denies chest pain, leg edema, palpitations or racing heartbeat Respiratory/Chest Respiratory/Chest: Reports cough; Denies dyspnea or dyspnea on exertion Gastrointestinal Gastrointestinal: Reports abdominal pain and nausea; Denies diarrhea or vomiting Genitourinary Genitourinary ED: Denies dysuria, hematuria or urinary frequency Musculoskeletal Musculoskeletal: Reports back pain; Denies extremity pain or neck pain Integumentary Denies rash or wounds Neurologic Neurologic: Denies headache(s), paresthesias or weakness EXAM Physical Exam Const Vital Signs: 08/29/24 13:45 08/29/24 15:31 08/29/24 17:44 Temperature 102.4 F H Temperature Source Temporal Pulse Rate 138 H 100 Respiratory Rate 17 Respiratory Effort Normal Non-Labored Respiratory Pattern Normal Blood Pressure 160/93 H 118/79 Blood Pressure Mean 115 92 Blood Pressure Source Blood Pressure Position Blood Pressure Location Pulse Ox 100 94 Oxygen Delivery Method Room Air 08/29/24 18:21 Temperature Temperature Source Pulse Rate 106 H Respiratory Rate 16 Respiratory Effort Respiratory Pattern Blood Pressure 111/78 Blood Pressure Mean 89 Blood Pressure Source Monitor Blood Pressure Position Supine Blood Pressure Location Left Arm Pulse Ox 94 Oxygen Delivery Method Room Air Positive well nourished and well developed Constitutional Narrative: Nontoxic fatigued General Appearance ED: well developed HEENT Reports dry mucous membranes normocephalic and atraumatic Mouth ED: Yes dry mucous membranes Mouth: dry mucous membranes Eyes General Eye ED: Yes normal appearance of both eyes Neck full ROM Chest Wall Chest: Negative for tenderness Resp normal respiratory effort and normal air movement Effort and Inspection: symmetric chest movement; Negative for respiratory distress Cardio regular rhythm and no murmurs Rate: tachycardic Peripheral Pulses: pulses 2+ throughout GI GI Narrative: Tender palpation epigastrium mild tenderness right upper quadrant. There is no guarding or rebound. Negative McBurney's. No lower abdominal tenderness. Palpation: Negative for guarding or rebound tenderness present Extremity normal to inspection General Extremety ED: Negative for edema or tenderness General Extremity: Negative for edema Neuro oriented x3 and no sensory deficits noted Sensorium / Orientation: awake and alert Skin no rashes or lesions noted and no wounds MDM MDM MDM Narrative Medical decision making narrative: Interventions / MDM: Differential diagnosis: Choledocholithiasis, symptomatic cholelithiasis, abdominal pain, RSV Diagnosis considered but do not suspect: Pneumonia however chest x-ray negative. My EKG interpretation: Sinus rate of 123, Brugada pattern noted in V1 V2. No T wave changes. Imaging independently reviewed and interpreted by myself: 2 view chest x-ray: Noacute process. CT abdomen pelvis: Gallstones concern in the neck with intrahepatic duct dilatation. RUQ US: Gallstones, common bile duct 8 mm. No cholecystitis. External documents reviewed: N/A Test considered but not ordered:N/A ED course: Patient febrile tachycardic. More symptoms upper abdomen. Slight cough. Nursing protocol obtain nasal swabs which she was RSV positive. Howeverconcerning symptoms reviewed abdominal pain today. Sepsis labs were ordered. Chest x-ray CT abdomen. Ordered for morphine Zofran fluids along with Tylenol. 1620: White count 13 elevated liver enzymes with elevated bilirubin. Lactic acid 1.6. Lipase normal. CT scan gallstones with 1 in the neck. Concerns for central intrahepatic biliary duct dilatation. Gallbladder ultrasound ordered for further evaluation. She fever with obstructive process white count 13.5, allergic to penicillin Levaquin and Flagyl IV started for coverage. Will plan for admission. 1715: Ultrasound reviewed by myself concerns for 8 and half millimeter duct dilatation there is gallstones. I did speak with GI Friend, concerns with her fever of cholangitis choledocholithiasis. Will keep her n.p.o. he will evaluate the patient for possible ERCP tonight. In addition I spoke with general surgeon Dr. Burgos made aware of patient's history and findings and GI plans. Will speak with hospitalist. Patient's pain is controlled at this time. Urine did note nitrites leukocytes and white cells 5-10 per urine culture pending. She only reports dark urine no dysuria or frequency. Discussed with Dr. La for admission. Re-evaluation: stable Disposition discussed with patient/family/significant other: Patient Case discussed with consulting clinician: Gastroenterology, general surgery, hospitalist This note was generated with [employer] software. It may contain incorrectwords, spelling, and punctuation that were not noted in checking the note beforesigning. Lab Data Attestation: I reviewed the patient's lab results. Labs: Laboratory Results - last 24 hr 08/29/24 08/29/24 15:11 16:26 WBC 13.5 H RBC 5.33 Hgb 14.6 Hct 44.1 MCV 82.7 MCH 27.4 MCHC 33.1 RDW Std Deviation 38.4 RDW Coeff of Fabio 12.8 Plt Count 202 MPV 10.7 Immature Gran % (Auto) 0.600 Neut % (Auto) 93.9 H Lymph % (Auto) 2.0 L Stanley % (Auto) 3.3 Eos % (Auto) 0.0 Baso % (Auto) 0.2 Absolute Neuts (auto) 12.6 H Absolute Lymphs (auto) 0.27 L Nucleated RBC % 0 PT 13.5 INR 1.0 APTT 27.9 Sodium 134 Potassium 3.9 Chloride 99 Carbon Dioxide 20.2 L Anion Gap 14 BUN 8 Creatinine 0.74 Estim Creat Clear Calc 95.78 Est GFR (MDRD) Non-Af 99 BUN/Creatinine Ratio 10.3 Glucose 175 H Lactic Acid 1.6 Calcium 9.0 Total Bilirubin 4.42 H Direct Bilirubin 2.99 H AST 250 H ALT 628 H Alkaline Phosphatase 266 H Total Protein 7.4 Albumin 4.3 Globulin 3.2 Lipase 13 Urine Color Straw Urine Clarity Clear Urine pH 6.0 Ur Specific Goltry 1.010 Urine Protein 30 H Urine Glucose (UA) Normal Urine Ketones 50 H Urine Occult Blood 25 H Urine Nitrite Positive H Urine Bilirubin 6 H Urine Urobilinogen 8 H Ur Leukocyte Esterase 25 H Urine RBC 0-5 SEEN Urine WBC 5-10 SEEN Ur Squamous Epith Cells 0-5 SEEN Urine Bacteria 1+ Urine Mucus RARE Urine Test Negative Radiography Diagnostic Testing: Clinical Impression(s) from Imaging Studies Abdomen/Pelvis CT 08/29/24 15:09 IMPRESSION: Gallstones. Possible gallstone in the neck of the gallbladder. Mild degree of central intrahepatic biliary ductal dilatation. Correlation withultrasound recommended for further evaluation. Fatty infiltration of the liver. One or more dose reduction techniques were used (e.g., Automated exposure control, adjustment of the mA and/or kV according to patient size, use of iterative reconstruction technique). Reading Location: [id number] Chest X-Ray 08/29/24 16:00 IMPRESSION: No acute abnormality is seen. Reading Location: [id number] Gallbladder Ultrasound 08/29/24 16:08 IMPRESSION: 1. Distended gallbladder with cholelithiasis. No pericholecystic fluid or significant wall thickening. Mildly dilated common bile duct measuring 8 mm. Consider MRCP for further assessment if indicated. 2. Hepatic steatosis. 3. Nonspecific hypoechoic lesion in the right hepatic lobe, not a simple cyst. Recommend further evaluation with nonemergent contrast-enhanced MRI. Reading Location: [facility] Discharge Plan Dx/Rx/DC Orders Clinical Impression: Ascending cholangitis, Obstructive jaundice, Cholelithiasis, Choledocholithiasis Disposition Disposition: Acute Care Hospital [facility] Discharge Date/Time: 08/29/24 21:07 What to do if you have Problems For any increased pain, shortness of breath, bleeding, nausea or vomiting, chestpain, or any unexpected problems, contact your Primary Care Provider. Call [employer] [facility] ([phone]) or report to the closest Emergency Room. Call 911 if necessary. 08/29/24 1340 <Electronically signed by Scot Gonzalez> Cosigner Signature (if applicable): CC: Dr. Milton Cody MD ~ Signed [facility] Work Phone: [phone] 961-868603-07-2025 Radiology Diagnostic study note [facility] Imaging Services [address] [place] [address] ERCP Biliary/Pancreas MR#: [id number] Acct: [id number] Name: GALILEA GLASS Rep #: [id number] : 1975 F 48 From: Mesfin Diop MD PCP: Dr. Milton Cody MD Status: ADM I N Study:ERCP Biliary/Pancreas Date of Exam: 08/29/24 Exam# [id number] Ordering Dr: Raffi Waller DO PROCEDURE: ERCP BILIARY/PANCREAS REASON FOR EXAM: ERCP TECHNIQUE: Seven intraoperative spot view(s) from ERCP COMPARISON: None. FINDINGS: Total fluoro time 69.7 seconds Cumulative dose 18.62 mGy Images show cannulation of the common bile duct and left hepatic biliary system with instillation of contrast. A couple of filling defects are seen in the area of the upper and mid common bile duct none of which appear persistent over the images. Contrast is seen within mildly prominent intrahepatic biliary ducts. Faint contrast remains in the intra and extrahepatic ducts on the final images. RAD/ERCP Biliary/Pancreas IMPRESSION: Fluoroscopy during ERCP as above. Reading Location: [facility] CC: Dr. Milton Cody MD; Paolo Waller DO ~ Lunchroom Mother: Signed [facility]03-07-2025 Discharge summary [facility] Medical Records Department [address] [place] [address] Emergency Department Summary 08/29/24 MR#: [id number] Acct: [id number] Name: GALILEA GLASS Rep #:[id number] : 1975 48 From: Scot Gonzalez PCP: Dr. Milton Cody MD Status:ADM I N Location: [place] [address] HPI History of Present Illness Chief Complaint: General Illness Informant: patient Narrative Narrative: Sent here after seeing PCP office. Patient reports beginning of illness 2 weeksago grandson diagnosed RSV. She has had sinus congestion. Symptoms of upper respiratory were started to improve. This past Sunday increased severe pain across her upper abdomen. Nausea when she eats. No vomiting no diarrhea no urinary symptoms however states recent urines a lot more dark in color she is taking less p.o. intake. Seeing her doctor today states had a fever tachycardic. Started having a cough. Still has upper abdominal pain that goes to her back. Denies alcohol history. Denies any abdominal surgeries. Father had pancreatic cancer. Allergies to chlorhexidine and penicillin. Prior similar symptoms: No PFSH PFSH Medical History (Updated 08/29/24 @ 23:[address] Scot Gonzalez DO) PCOS (polycystic ovarian syndrome) Migraine headache Home Medications ?Medication ?Instructions ?Recorded ?Last Taken ?Type thyroid (pork) 60 mg tablet 60 mg PO DAILY 08/23/20 History ([place] Thyroid) cholecalciferol (vitamin D3) 1 tab PO DAILY 08/29/24 U nknown History levothyroxine 25 mcg tablet 25 mcg PO SUTUWETHSA 08/2908/29/24 History magnesium citrate 125 mg capsule 250 mg PO QHS 5 Unknown History metformin 500 mg tablet 500 mg PO DAILY 08/29/24 Unk nown History Allergy/AdvReac Type Severity Reaction Status Date / Time Penicillins Allergy Intermediate Hives Verified 08/30/20 13:09 chlorhexidine Allergy Mild Rash Verified 08/30/20 13:09 Family History Other Cancer Diabetes Heart disease Hypertension Surgical History History of lobectomy of thyroid Social History household members: spouse housing: house Smoking Status: Never smoker ROS ROS ED Constitutional Constitutional ED: Reports fever(s); Denies chills or sweats ENT ENT ED: Denies sore throat Cardiovascular Cardiovascular: Denies chest pain, leg edema, palpitations or racing heartbeat Respiratory/Chest Respiratory/Chest: Reports cough; Denies dyspnea or dyspnea on exertion Gastrointestinal Gastrointestinal: Reports abdominal pain and nausea; Denies diarrhea or vomiting Genitourinary Genitourinary ED: Denies dysuria, hematuria or urinary frequency Musculoskeletal Musculoskeletal: Reports back pain; Denies extremity pain or neck pain Integumentary Denies rash or wounds Neurologic Neurologic: Denies headache(s), paresthesias or weakness EXAM Physical Exam Const Vital Signs: 08/29/24 13:45 08/29/24 15:31 08/29/24 17:44 Temperature 102.4 F H Temperature Source Temporal Pulse Rate 138 H 100 Respiratory Rate 17 Respiratory Effort Normal Non-Labored Respiratory Pattern Normal Blood Pressure 160/93 H 118/79 Blood Pressure Mean 115 92 Blood Pressure Source Blood Pressure Position Blood Pressure Location Pulse Ox 100 94 Oxygen Delivery Method Room Air 08/29/24 18:21 Temperature Temperature Source Pulse Rate 106 H Respiratory Rate 16 Respiratory Effort Respiratory Pattern Blood Pressure 111/78 Blood Pressure Mean 89 Blood Pressure Source Monitor Blood Pressure Position Supine Blood Pressure Location Left Arm Pulse Ox 94 Oxygen Delivery Method Room Air Positive well nourished and well developed Constitutional Narrative: Nontoxic fatigued General Appearance ED: well developed HEENT Reports dry mucous membranes normocephalic and atraumatic Mouth ED: Yes dry mucous membranes Mouth: dry mucous membranes Eyes General Eye ED: Yes normal appearance of both eyes Neck full ROM Chest Wall Chest: Negative for tenderness Resp normal respiratory effort and normal air movement Effort and Inspection: symmetric chest movement; Negative for respiratory distress Cardio regular rhythm and no murmurs Rate: tachycardic Peripheral Pulses: pulses 2+ throughout GI GI Narrative: Tender palpation epigastrium mild tenderness right upper quadrant. There is no guarding or rebound.Negative McBurney's. No lower abdominal tenderness. Palpation: Negative for guarding or rebound tenderness present Extremity normal to inspection General Extremety ED: Negative for edema or tenderness General Extremity: Negative for edema Neuro oriented x3 and no sensory deficits noted Sensorium / Orientation: awake and alert Skin no rashes or lesions noted and no wounds MDM MDM MDM Narrative Medical decision making narrative: Interventions / MDM: Differential diagnosis: Choledocholithiasis, symptomatic cholelithiasis, abdominal pain, RSV Diagnosis considered but do not suspect: Pneumonia however chest x-ray negative. My EKG interpretation: Sinus rate of 123, Brugada pattern noted in V1 V2. No T wave changes. Imaging independently reviewed and interpreted by myself: 2 view chest x-ray: Noacute process. CT abdomen pelvis: Gallstones concern in the neck with intrahepatic duct dilatation. RUQ US: Gallstones,common bile duct 8 mm. No cholecystitis. External documents reviewed: N/A Test considered but not ordered:N/A ED course: Patient febrile tachycardic. More symptoms upper abdomen. Slight cough. Nursing protocolobtain nasal swabs which she was RSV positive. Howeverconcerning symptoms reviewed abdominal pain today. Sepsis labs were ordered. Chest x-ray CT abdomen. Ordered for morphine Zofran fluids along with Tylenol. 1620: White count 13 elevated liver enzymes with elevated bilirubin. Lactic acid 1.6. Lipase normal. CT scan gallstones with 1 in the neck. Concerns for central intrahepatic biliary duct dilatation. Gallbladder ultrasound ordered for further evaluation. She fever with obstructive process white count 13.5, allergic to penicillin Levaquin and Flagyl IV started for coverage. Will plan for admission. 1715: Ultrasound reviewed by myself concerns for 8 and half millimeter duct dilatation there is gallstones. I did speak with GI Dr. Waller, concerns with her fever of cholangitis choledocholithiasis.Will keep her n.p.o. he will evaluate the patient for possible ERCP tonight. In addition I spoke with general surgeon Dr. Burgos made aware of patient's history and findings and GI plans. Will speak with hospitalist. Patient's pain is controlled at this time. Urine did note nitrites leukocytes and white cells 5-10 per urine culture pending. She only reports dark urine no dysuria or frequency. Discussed with Dr. La for admission. Re-evaluation: stable Disposition discussed with patient/family/significant other: Patient Case discussed with consulting clinician: Gastroenterology, general surgery, hospitalist This note was generated with [employer] dictation software. It may contain incorrectwords, spelling, and punctuation that were not noted in checking the note beforesigning. Lab Data Attestation: I reviewed the patient's lab results. Labs: Laboratory Results - last 24 hr 08/29/24 08/29/24 15:11 16:26 WBC 13.5 H RBC 5.33 Hgb 14.6 Hct 44.1 MCV 82.7 MCH 27.4 MCHC 33.1 RDW Std Deviation 38.4 RDW Coeff of Fabio 12.8 Plt Count 202 MPV 10.7 Immature Gran % (Auto) 0.600 Neut % (Auto) 93.9 H Lymph % (Auto) 2.0 L Stanley % (Auto) 3.3 Eos % (Auto) 0.0 Baso % (Auto) 0.2 Absolute Neuts (auto) 12.6 H Absolute Lymphs (auto) 0.27 L Nucleated RBC % 0 PT 13.5 INR 1.0 APTT 27.9 Sodium 134 Potassium 3.9 Chloride 99 Carbon Dioxide 20.2 L Anion Gap 14 BUN 8 Creatinine 0.74 Estim Creat Clear Calc 95.78 Est GFR (MDRD) Non-Af 99 BUN/Creatinine Ratio 10.3 Glucose 175 H Lactic Acid 1.6 Calcium 9.0 Total Bilirubin 4.42 H Direct Bilirubin 2.99 H AST 250 H ALT 628 H Alkaline Phosphatase 266 H Total Protein 7.4 Albumin 4.3 Globulin 3.2 Lipase 13 Urine Color Straw Urine Clarity Clear Urine pH 6.0 Ur Specific Goltry 1.010 Urine Protein 30 H Urine Glucose (UA) Normal Urine Ketones 50 H Urine Occult Blood 25 H Urine Nitrite Positive H Urine Bilirubin 6 H Urine Urobilinogen 8 H Ur Leukocyte Esterase 25 H Urine RBC 0-5 SEEN Urine WBC 5-10 SEEN Ur Squamous Epith Cells 0-5 SEEN Urine Bacteria 1+ Urine Mucus RARE Urine Test Negative Radiography Diagnostic Testing: Clinical Impression(s) from Imaging Studies Abdomen/Pelvis CT 08/29/24 15:09 IMPRESSION: Gallstones. Possible gallstone in the neck of the gallbladder. Mild degree of central intrahepatic biliary ductal dilatation. Correlation withultrasound recommended for further evaluation. Fatty infiltration of the liver. One or more dose reduction techniques were used (e.g., Automated exposure control, adjustment of the mA and/or kV according to patient size, use of iterative reconstruction technique). Reading Location: [id number] Chest X-Ray 08/29/24 16:00 IMPRESSION: No acute abnormality is seen. Reading Location: [id number] Gallbladder Ultrasound 08/29/24 16:08 IMPRESSION: 1. Distended gallbladder with cholelithiasis. No pericholecystic fluid or significant wall thickening. Mildly dilated common bile duct measuring 8 mm. Consider MRCP for further assessment if indicated. 2. Hepatic steatosis. 3. Nonspecific hypoechoic lesion in the right hepatic lobe, not a simple cyst. Recommend further evaluation with nonemergent contrast-enhanced MRI. Reading Location: [facility] Discharge Plan Dx/Rx/DC Orders Clinical Impression: Ascending cholangitis, Obstructive jaundice, Cholelithiasis, Choledocholithiasis Disposition Disposition: Acute Care Hospital [facility] Discharge Date/Time: 08/29/24 21:07 What to do if you have Problems For any increased pain, shortness of breath, bleeding, nausea or vomiting, chestpain, or any unexpected problems, contact your Primary Care Provider. Call [facility] ([phone]) or report tothe closest Emergency Room. Call 911 if necessary. 08/29/24 3202 Cosigner Signature (if applicable): CC: Dr. Milton Cody MD ~ Signed [facility]03-07-2025 History and physical note Author Spencer La [facility] Note Date/Time August 29, 2024 7:52 pm [facility] Medical Records Department [address] [place] [address] H&P Exam - Hospitalist 08/29/24 1743 MR#: [id number] Acct: [id number] Name: GALILEA GLASS Rep #:[id number] : 1975 48 From: Spencer barragan DO PCP: Dr. Milton Cody MD Status:ADM I N Location: [place] [address] HPI - General General Date of Admission: 08/29/24 Date of Service: 08/29/24 Chief Complaint: Severe upper abdominal pain with nausea and fevers, URI symptoms HPI Narrative GALILEA GLASS, is a 48 F who presented to [facility] ED on 09/16with multiple concerns including recent URI symptoms and intermittent episodes of severe upper abdominal pain radiating to the back with nausea and new onset fevers. Patient's grandson was diagnosed with RSV about 2 weeks ago and she began having URI symptoms recently that she attributed to likely RSV. However, 2 days ago she had an episode of severe upper abdominal pain with nausea. [place] she has continued to have nausea and has not developed fairly persistent upper abdominal pain radiating to the back and fevers with chills. She was found to be RSV positive in the ED. CT abdomen pelvis showed gallstones, possible gallstone in the neck of the gallbladder and mild degree of central intrahepatic biliary ductal dilation. Gallbladder ultrasound showed a distendedgallbladder with cholelithiasis and mildly dilated common bile duct concerning for choledocholithiasis. Given these findings, ED physician discussed case withboth Dr. Waller and Dr. Burgos. Dr. Waller saw the patient at bedside and had concern for acute cholangitis secondary to choledocholithiasis and determined totake the patient to endoscopy for ERCP this evening. Dr. Burgos also saw the patient and is recommending cholecystectomy sometime prior to discharge. Hospitalist was then contacted for admission. I saw the patient at bedside in the ED, and son were present. Patient was mildly fatigued appearing but otherwise laying back fairly comfortably in bed and conversing normally. She stated her pain was much improved from earlierwith pain medication. She denied any fevers or chills currently. Denied any nausea. No other acute concerns this time. [facility] Medical History PCOS (polycystic ovarian syndrome) Migraine headache Home Medications ?Medication ?Instructions ?Recorded ?Last Taken ?Type thyroid (pork) 60 mg tablet 60 mg PO DAILY 08/23/20 History ([place] Thyroid) cholecalciferol (vitamin D3) 1 tab PO DAILY 08/29/24 U nknown History levothyroxine 25 mcg tablet 25 mcg PO SUTUWETHSA 08/2908/29/24 History magnesium citrate 125 mg capsule 250 mg PO QHS 5 Unknown History metformin 500 mg tablet 500 mg PO DAILY 08/29/24 Unk nown History Allergy/AdvReac Type Severity Reaction Status Date / Time Penicillins Allergy Intermediate Hives Verified 08/30/20 13:09 chlorhexidine Allergy Mild Rash Verified 08/30/20 13:09 Family History Other Cancer Diabetes Heart disease Hypertension Surgical History History of lobectomy of thyroid Social History household members: spouse housing: house Smoking Status: Never smoker ROS Constitutional Constitutional: Reports chills and fever(s); Denies fatigue or weakness Eyes Eyes: Denies change in vision Cardiovascular Cardiovascular: Denies chest pain Respiratory/Chest Respiratory/Chest: Denies cough or shortness of breath at rest Gastrointestinal Gastrointestinal: Reports abdominal pain, nausea and vomiting; Denies constipation or diarrhea Musculoskeletal Musculoskeletal: Reports back pain; Denies arthralgias or myalgias Vital Signs Vital Signs Vital Signs: 08/29/24 13:45 08/29/24 15:31 Temperature 102.4 F H Temperature Source Temporal Pulse Rate 138 H Respiratory Rate 17 Respiratory Effort Normal Non-Labored Respiratory Pattern Normal Blood Pressure 160/93 H Blood Pressure Mean 115 Pulse Ox 100 Oxygen Delivery Method Room Air Weight Weight: 91.626 kg Body Mass Index (BMI) 36.9 Physical Exam Const alert, oriented x3 and no apparent distress Constitutional Narrative: Middle-age female, class II obesity, mildly fatigued appearing but otherwise laying back comfortably in bed, conversing normally, in no acute distress. General Appearance: cooperative and comfortable HEENT normocephalic, head/scalp atraumatic, hearing grossly normal bilaterally, nasal mucous membranes and turbinates normal and moist oral mucous membranes Eyes PERRL, EOMs intact bilaterally and conjunctivae normal Neck full ROM Chest inspection of chest normal Resp normal respiratory effort, normal air movement, no use of accessory muscles and clear to auscultation bilaterally Cardio regular rate, regular rhythm, no murmurs and peripheral pulses 2+ throughout GI GI Narrative: Mild tenderness to palpation in epigastric to right upper quadrant areas. Abdomen otherwise soft and nondistended on palpation. Back/Spine normal ROM Extremity normal to inspection, full ROM and no pedal edema Skin no rashes or lesions noted Neuro moves all extremities and no focal motor deficits Speech: speech normal Motor Exam: strength 5/5 throughout Psych mental status grossly normal Results Lab / Micro Data 08/29/24 15:11 08/29/24 15:11 Labs: Laboratory Results - last 24 hr 08/29/24 15:11: WBC 13.5 H, RBC 5.33, Hgb 14.6, Hct 44.1, MCV 82.7, MCH 27.4, MCHC 33.1, RDW Std Deviation 38.4, RDW Coeff of Fabio 12.8, Plt Count 202, MPV 10.7, Immature Gran % (Auto) 0.600, Neut % (Auto) 93.9 H, Lymph % (Auto) 2.0 L, Stanley % (Auto) 3.3, Eos % (Auto) 0.0, Baso % (Auto) 0.2, Absolute Neuts (auto) 12.6 H, Absolute Lymphs (auto) 0.27 L, Nucleated RBC % 0, PT 13.5, INR 1.0, APTT27.9, Sodium 134, Potassium 3.9, Chloride 99, Carbon Dioxide 20.2 L, Anion Gap 14, BUN 8, Creatinine 0.74, Estim Creat Clear Calc 95.78, Est GFR (MDRD) Non-Af 99, BUN/Creatinine Ratio 10.3, Glucose 175 H, Lactic Acid 1.6, Calcium 9.0, Total Bilirubin 4.42 H, Direct Bilirubin 2.99 H, AST 250 H, ALT 628 H, Alkaline Phosphatase 266 H, Total Protein 7.4, Albumin 4.3, Globulin 3.2, Lipase 13 08/29/24 16:26: Urine Color Straw, Urine Clarity Clear, Urine pH 6.0, Ur Specific Goltry 1.010, Urine Protein 30 H, Urine Glucose (UA) Normal, Urine Ketones 50 H, Urine Occult Blood 25 H, Urine Nitrite Positive H, Urine Bilirubin6 H, Urine Urobilinogen 8 H, Ur Leukocyte Esterase 25 H Micro: Microbiology 08/29/24 13:50 Mucosa - Nose SARS-CoV-2, Influenza & RSV (PCR) - Final RSV Imaging Radiology Impression Abdomen/Pelvis CT 08/29/24 15:09 IMPRESSION: Gallstones. Possible gallstone in the neck of the gallbladder. Mild degree of central intrahepatic biliary ductal dilatation. Correlation withultrasound recommended for further evaluation. Fatty infiltration of the liver. One or more dose reduction techniques were used (e.g., Automated exposure control, adjustment of the mA and/or kV according to patient size, use of iterative reconstruction technique). Reading Location: [id number] Chest X-Ray 08/29/24 16:00 IMPRESSION: No acute abnormality is seen. Reading Location: [id number] Gallbladder Ultrasound 08/29/24 16:08 IMPRESSION: 1. Distended gallbladder with cholelithiasis. No pericholecystic fluid or significant wall thickening. Mildly dilated common bile duct measuring 8 mm. Consider MRCP for further assessment if indicated. 2. Hepatic steatosis. 3. Nonspecific hypoechoic lesion in the right hepatic lobe, not a simple cyst. Recommend further evaluation with nonemergent contrast-enhanced MRI. Reading Location: [facility] Assessment & Plan Assessment/Plan (1) Ascending cholangitis: (2) Obstructive jaundice: PLAN: Plan Patient is a 48-year-old female who presented [facility] ED on 08/29/2024 with abdominal pain with nausea, fever/chills and URI symptoms. 1. Choledocholithiasis with concern for acute cholangitis ? Admit under inpatient status to PCU. GI and general surgery consulted. CT abdomen pelvis and gallbladder ultrasound on admit showed distended gallbladder with multiple calculi and dilated common bile duct. LFTs with T. bili 4.4, direct bili 2.9, AST 250, ALT 628, alk phos 266. Fevers present on admission. No hypotension or altered mentation noted. Per GI, planning for ERCP this evening, will maintain n.p.o. status for now. Per general surgery, planning forcholecystectomy at some point during this hospitalization. Will treat with IV Levaquin and Flagyl. Given 2 L of IV fluids in the ED. Oxycodone as needed andIV morphine as needed for pain control. Monitor closely. 2. RSV infection ? Patient tested positive for RSV on admit. Mild URI symptoms noted. Chest x-ray unremarkable. Treated with symptomatic management. Contact precautions in place. 3. Hypothyroidism ? TSH low but free T4 normal on admit. Continue home Synthroid. Outpatient follow-up for dose adjustments as needed. 4. Type 2 diabetes mellitus ? On home metformin 500 mg daily. Will treat with sliding scale insulin with meals while inpatient. 5. Class II obesity ? BMI 36 on admit. Complicates hospital course, care and prognosis. DVT prophylaxis: Lovenox CODE STATUS: Full code, verified Expected disposition: Home, TBD Total clinical time spent by myself addressing the patient's medical issues, reviewing all the data, and collaborating with patient's care team: 75 minutes. Charges/Coding Visit Charges Inpatient E&M: 63888 Init Hosp L3 08/29/242051 <Electronically signed by Spencer La DO> Cosigner Signature (if applicable): CC: Dr. Spencer La DO; Dr. Milton Cody MD~ Signed [facility] Work Phone: 1(494) 936-992003-07-2025 History and physical note [facility] Medical Records Department [address] [place] [address] H&P Exam - Hospitalist 08/29/24 1743 MR#: [id number] Acct: [id number] Name: GALILEA GLASS Rep #:[id number] : 1975 48 From: Spencer barragan DO PCP: Dr. Milton Cody MD Status:ADM I N Location: [place] [address] HPI - General General Date of Admission: 08/29/24 Date of Service: 08/29/24 Chief Complaint: Severe upper abdominal pain with nausea and fevers, URI symptoms HPI Narrative GALILEA GLASS, is a 48 F who presented to [facility] ED on 09/16with multiple concerns including recent URI symptoms and intermittent episodes of severe upper abdominal pain radiatingto the back with nausea and new onset fevers. Patient's grandson was diagnosed with RSV about 2 weeks ago and she began having URI symptoms recently that she attributed to likely RSV. However, 2 daysago she had an episode of severe upper abdominal pain with nausea. S[place]ethen she has continued to have nausea and has not developed fairly persistent upper abdominal pain radiating to the back and fevers with chills. She was found to be RSV positive in the ED. CT abdomen pelvis showed gallstones, possible gallstone in the neck of the gallbladder and mild degree of central intrahepatic biliary ductal dilation. Gallbladder ultrasound showed a distendedgallbladder with cholelithiasis and mildly dilated common bile duct concerning for choledocholithiasis. Given these findings, ED physician discussed case withboth Dr. Waller and Dr. Burgos. Dr. Waller saw the patient at bedside and had concern for acute cholangitis secondary to choledocholithiasis and determined totake the patient to endoscopy for ERCP this evening. Dr. Burgos also saw the patient and is recommending cholecystectomy sometime prior to discharge. Hospitalist was then contacted for admission. I saw the patient at bedside in the ED, and son were present. Patient was mildly fatigued appearing but otherwise laying back fairly comfortably in bed and conversing normally. She stated herpain was much improved from earlierwith pain medication. She denied any fevers or chills currently.Denied any nausea. No other acute concerns this time. [facility] Medical History PCOS (polycystic ovarian syndrome) Migraine headache Home Medications ?Medication ?Instructions ?Recorded ?Last Taken ?Type thyroid (pork) 60 mg tablet 60 mg PO DAILY 08/23/20 History ([place] Thyroid) cholecalciferol (vitamin D3) 1 tab PO DAILY 08/29/24 U nknown History levothyroxine 25 mcg tablet 25 mcg PO SUTUWETHSA 08/2908/29/24 History magnesium citrate 125 mg capsule 250 mg PO QHS 5 Unknown History metformin 500 mg tablet 500 mg PO DAILY 08/29/24 Unk nown History Allergy/AdvReac Type Severity Reaction Status Date / Time Penicillins Allergy Intermediate Hives Verified 08/30/20 13:09 chlorhexidine Allergy Mild Rash Verified 08/30/20 13:09 Family History Other Cancer Diabetes Heart disease Hypertension Surgical History History of lobectomy of thyroid Social History household members: spouse housing: house Smoking Status: Never smoker ROS Constitutional Constitutional: Reports chills and fever(s); Denies fatigue or weakness Eyes Eyes: Denies change in vision Cardiovascular Cardiovascular: Denies chest pain Respiratory/Chest Respiratory/Chest: Denies cough or shortness of breath at rest Gastrointestinal Gastrointestinal: Reports abdominal pain, nausea and vomiting; Denies constipation or diarrhea Musculoskeletal Musculoskeletal: Reports back pain; Denies arthralgias or myalgias Vital Signs Vital Signs Vital Signs: 08/29/24 13:45 08/29/24 15:31 Temperature 102.4 F H Temperature Source Temporal Pulse Rate 138 H Respiratory Rate 17 Respiratory Effort Normal Non-Labored Respiratory Pattern Normal Blood Pressure 160/93 H Blood Pressure Mean 115 Pulse Ox 100 Oxygen Delivery Method Room Air Weight Weight: 91.626 kg Body Mass Index (BMI) 36.9 Physical Exam Const alert, oriented x3 and no apparent distress Constitutional Narrative: Middle-age female, class II obesity, mildly fatigued appearing but otherwise laying back comfortably in bed, conversing normally, in no acute distress. General Appearance: cooperative and comfortable HEENT normocephalic, head/scalp atraumatic, hearing grossly normal bilaterally, nasal mucous membranes and turbinates normal and moist oral mucous membranes Eyes PERRL, EOMs intact bilaterally and conjunctivae normal Neck full ROM Chest inspection of chest normal Resp normal respiratory effort, normal air movement, no use of accessory muscles and clear to auscultation bilaterally Cardio regular rate, regular rhythm, no murmurs and peripheral pulses 2+ throughout GI GI Narrative: Mild tenderness to palpation in epigastric to right upper quadrant areas. Abdomen otherwise soft and nondistended on palpation. Back/Spine normal ROM Extremity normal to inspection, full ROM and no pedal edema Skin no rashes or lesions noted Neuro moves all extremities and no focal motor deficits Speech: speech normal Motor Exam: strength 5/5 throughout Psych mental status grossly normal Results Lab / Micro Data 08/29/24 15:11 08/29/24 15:11 Labs: Laboratory Results - last 24 hr 08/29/24 15:11: WBC 13.5 H, RBC 5.33, Hgb 14.6, Hct 44.1, MCV 82.7, MCH 27.4, MCHC 33.1, RDW Std Deviation 38.4, RDW Coeff of Fabio 12.8, Plt Count 202, MPV 10.7, Immature Gran % (Auto) 0.600, Neut % (Auto) 93.9 H, Lymph % (Auto) 2.0 L, Stanley % (Auto) 3.3, Eos % (Auto) 0.0, Baso % (Auto) 0.2, AbsoluteNeuts (auto) 12.6 H, Absolute Lymphs (auto) 0.27 L, Nucleated RBC % 0, PT 13.5, INR 1.0, APTT27.9, Sodium 134, Potassium 3.9, Chloride 99, Carbon Dioxide 20.2 L, Anion Gap 14, BUN 8, Creatinine 0.74,Estim Creat Clear Calc 95.78, Est GFR (MDRD) Non- Af 99, BUN/Creatinine Ratio 10.3, Glucose 175 H, Lactic Acid 1.6, Calcium 9.0, Total Bilirubin 4.42 H, Direct Bilirubin 2.99 H, AST 250 H, ALT 628 H, Alkaline Phosphatase 266 H, Total Protein 7.4, Albumin 4.3, Globulin 3.2, Lipase 13 08/29/24 16:26: Urine Color Straw, Urine Clarity Clear, Urine pH 6.0, Ur Specific Goltry 1.010, Urine Protein 30 H, Urine Glucose (UA) Normal, Urine Ketones 50 H, Urine Occult Blood 25 H, Urine Nitrite Positive H, Urine Bilirubin6 H, Urine Urobilinogen 8 H, Ur Leukocyte Esterase 25 H Micro: Microbiology 08/29/24 13:50 Mucosa - Nose SARS-CoV-2, Influenza & RSV (PCR) - Final RSV Imaging Radiology Impression Abdomen/Pelvis CT 08/29/24 15:09 IMPRESSION: Gallstones. Possible gallstone in the neck of the gallbladder. Mild degree of central intrahepatic biliary ductal dilatation. Correlation withultrasound recommended for further evaluation. Fatty infiltration of the liver. One or more dose reduction techniques were used (e.g., Automated exposure control, adjustment of the mA and/or kV according to patient size, use of iterative reconstruction technique). Reading Location: [facility] Chest X-Ray 08/29/24 16:00 IMPRESSION: No acute abnormality is seen. Reading Location: [facility] Gallbladder Ultrasound 08/29/24 16:08 IMPRESSION: 1. Distended gallbladder with cholelithiasis. No pericholecystic fluid or significant wall thickening. Mildly dilated common bile duct measuring 8 mm. Consider MRCP for further assessment if indicated. 2. Hepatic steatosis. 3. Nonspecific hypoechoic lesion in the right hepatic lobe, not a simple cyst. Recommend further evaluation with nonemergent contrast-enhanced MRI. Reading Location: [facility] Assessment & Plan Assessment/Plan (1) Ascending cholangitis: (2) Obstructive jaundice: PLAN: Plan Patient is a 48-year-old female who presented [facility] ED on 08/29/2024 with abdominal pain with nausea, fever/chills and URI symptoms. 1. Choledocholithiasis with concern for acute cholangitis ? Admit under inpatient status to PCU. GI and general surgery consulted. CT abdomen pelvis and gallbladder ultrasound on admit showed distended gallbladder with multiple calculi and dilated common bile duct. LFTs with T. bili 4.4, direct bili 2.9, AST 250, ALT 628, alk phos 266. Fevers present on admission. No hypotension or altered mentation noted. Per GI, planning for ERCP this evening, will maintain n.p.o. status for now. Per general surgery, planning forcholecystectomy at some point during this hospitalization. Will treat with IV Levaquin and Flagyl. Given 2 L of IV fluids in the ED. Oxycodone as needed andIV morphine as needed for pain control. Monitor closely. 2. RSV infection ? Patient tested positive for RSV on admit. Mild URI symptoms noted. Chest x-ray unremarkable. Treated with symptomatic management. Contact precautions in place. 3. Hypothyroidism ? TSH low but free T4 normal on admit. Continue home Synthroid. Outpatient follow-up for dose adjustments as needed. 4. Type 2 diabetes mellitus ? On home metformin 500 mg daily. Will treat with sliding scale insulin with meals while inpatient. 5. Class II obesity ? BMI 36 on admit. Complicates hospital course, care and prognosis. DVT prophylaxis: Lovenox CODE STATUS: Full code, verified Expected disposition: Home, TBD Total clinical time spent by myself addressing the patient's medical issues, reviewing all the data, and collaborating with patient's care team: 75 minutes. Charges/Coding Visit Charges Inpatient E&M: 18584 Init Hosp L3 08/29/242051 Cosigner Signature (if applicable): CC: Dr. Spencer La DO; Dr. Milton Cody MD~ Signed [facility]03-07-2025 Consult note Author Ruy Gallagher [facility] Note Date/Time August 29, 2024 7:18 pm [facility] Medical Records Department [address] [place] [address] Pre-Anesthesia Evaluation 08/29/24 1851 MR#: [id number] Acct: [id number] Name: GALILEA GLASS Rep #:[id number] : 1975 48 From: Ruy Gallagher MD PCP: Dr. Milton Cody MD Status:ADM I N Y Race: C Location: [place] [address] 41 ASA Classification* ASA Classification ASA Classification: 2 and E Assessment & Plan Anesthesia* Anesthesia Assessment Anesthesia Assessment: Discussed sedation and/or anesthesia options, risks, benefits, and alternatives with patient/parents/legal guardian/POA. Questions invited. The patient/parents/legal guardian/POA seems to understand and agrees to proceedwith anesthesia plan. Reviewed the physical assessment, medical history, allergy history and patient home medications list prior to surgery/procedure/anesthetic and documented any changes. Performed airway and anesthesia risk assessments. Anesthesia Type Anesthesia Type: General Anesthesia Focused Assessment* Temperature: 98.7 F Pulse Rate: 106 Blood Pressure: 111/78 Respiratory Rate: 16 Pulse Ox: 94 Airway Assessment Mouth opens: >3 cm Mallampati Score: II Focused Labs Anesthesia Preop lab: CBC WBC 13.5 K/mm3 (4.4-11.0) H 08/29/24 15:11 5 RBC 5.33 M/mm3 (4.2-5.4) 08/29/24 15:11 08/29/24 Hgb 14.6 g/dL (12.0-15.0) 08/29/24 15:11 08/29/24 Hct 44.1 % (37-47) 08/29/24 15:11 08/29/24 Plt Count 202 K/mm3 (150-450) 08/29/24 15:11 08/29/24 CHEMISTRY Potassium 3.9 mmol/L (3.3-5.1) 08/29/24 15:11 08/29/24 Sodium 134 mmol/L (133-145) 08/29/24 15:11 08/29/24 BUN 8 mg/dL (4-19) 08/29/24 15:11 08/29/24 Creatinine 0.74 mg/dL (0.70-1.20) 08/29/24 15:11 08/29/24 Glucose 175 mg/dL (70-99) H 08/29/24 15:11 08/29/24 TSH 0.14 uIU/mL (0.358-3.74) L 09/01/19 12:06 03/14 COAG PT 13.5 SECONDS (11.7-14.9) 08/29/24 15:11 Urine Test Negative Negative 08/29/24 16:26 08/29/24 Pre-Assessment Diagnosis/Proposed Procedure Planned Operative Procedure(s): ERCP Anesthesia History Anesthesia History - piece cutter: Anesthesia History - piece cutter Hx Hospitalization Any Problems With Anesthesia No 08/29/24 18:21 Cholinesterase deficiency No 08/29/24 18:21 You/Your Family Experience No 08/29/24 18:21 fever (hyperthermia) with Relationship Recent Exposure to Contagious No 08/29/24 18:21 Disease Does patient have nerve No 08/29/24 18:21 stimulator Patient instructed to have device shut off --Does patient have Pacemaker No 08/29/24 18:21 or ICD? When Was Last Pacemaker Check QUESTION #4 FULL TEXT: You/Your Family Experience fever (hyperthermia) with Anesthesia Last Oral Intake Last Oral intake: Last Oral Intake NPO since 14:30 08/29/24 18:21 Meds taken in AM with sips of water? Meds patient instructed to take am of surgery PONV PONV - piece cutter: PONV - piece cutter Female HX of Motion Sickness HX of N/V After Surgery Non-Smoker Duration of Surgery greater than 60 minutes Number of Risk Factors PONV Score Height & Weight Height & Weight: Anesthesia: Height & Weight Height 5 ft 2 in 08/29/24 18:21 Weight: 91.626 kg 08/29/24 18:21 Body Mass Index (BMI) 36.9 08/29/24 18:21 Respiratory Assessment Respiratory Assessment - piece cutter: Respiratory Tract Infection Hx - piece cutter Hx Respiratory Tract Infection Yes 08/29/24 18:21 STOP Sleep Apnea STOP Sleep Apnea - piece cutter: STOP Sleep Apnea - piece cutter Hx Hypertension No 08/29/24 18:21 Hx Sleep Apnea No 08/29/24 18:21 CPAP BIPAP Do you snore loudly (louder No 08/29/24 18:21 than talking or can be heard Do you often feel tired/ No 08/29/24 18:21 fatigued/ sleepy during daytime? Has anyone observed you stop No 08/29/24 18:21 breathing during sleep? STOP Results Negative 08/29/24 18:21 QUESTION #5 FULL TEXT : Do you snore loudly (louder than talking or can be heard through closed doors)? Tobacco Use History Tobacco Use History - piece cutter: Tobacco Use History - piece cutter Tobacco Use Smoking Status Never smoker 08/29/24 15:31 Hx Tobacco Use Years Smoking Packs Smoked per Day Smoking Cessation Date was within the last 15 years Hx Smoking Cessation Date Hx Smoking Cessation Counseling Hematologic Medial History Hematologic Hx - piece cutter: Hematologic Medical Hx - lifestyle consultant Hx of Blood Transfusion Hx of Transfusion in last 3 Months Date of Last Transfusion (if within last 3 months) Ever experience any problems with transfusion(s)? Specify any problems Hx of Preganancy in last 3 Months Nurse Filling Out Transfusion & Questions: Date: Time: Patient unable to answer at this time (ie. confused, unrespo /Reproduction History /Reproductive History - piece cutter: /Reproductive Hx- piece cutter Hx Now No 08/29/24 18:21 Gestational Age (in weeks): EDC: Hx Hx Para Hx Section SAB No 08/29/24 18:21 [facility] Medical History PCOS (polycystic ovarian syndrome) Migraine headache Home Medications ?Medication ?Instructions ?Recorded ?Last Taken ?Type thyroid (pork) 60 mg tablet 60 mg PO DAILY 08/23/20 History ([place] Thyroid) cholecalciferol (vitamin D3) 1 tab PO DAILY 08/29/24 U nknown History levothyroxine 25 mcg tablet 25 mcg PO SUTUWETHSA 08/2908/29/24 History magnesium citrate 125 mg capsule 250 mg PO QHS 5 Unknown History metformin 500 mg tablet 500 mg PO DAILY 08/29/24 Unk nown History Allergy/AdvReac Type Severity Reaction Status Date / Time Penicillins Allergy Intermediate Hives Verified 08/30/20 13:09 chlorhexidine Allergy Mild Rash Verified 08/30/20 13:09 Family History Other Cancer Diabetes Heart disease Hypertension Surgical History History of lobectomy of thyroid Social History household members: spouse housing: house Smoking Status: Never smoker Review of Systems (Anesthesia) ROS Narrative System reviewed and no additional complaints, except as documented. 08/29/241917 <Electronically signed by Ruy Gallagher MD > Date _ Ruy Gallagher MD Cosigner Signature: Date CC: ~ Signed [facility] Work Phone: 1(785) 777-962703-07-2025 History and physical note Author Paolo Friend [facility] Note Date/Time August 29, 2024 6:40 pm [facility] Medical Records Department [address] [place] [address] History & Physical Exam 08/29/24 1832 MR#: [id number] Acct: [id number] Name: GALILEA GLASS Rep #:[id number] : 1975 48 From: Paolo Waller DO PCP: Dr. Milton Cody MD Status:REG S DC [facility] - General General Date of Admission: 08/29/24 Date of Service: 08/29/24 Chief Complaint: Ascending cholangitis HPI Narrative GALILEA GLASS, is a 48 F who presents with fever, chills, epigastric, right lower quadrant pain and back pain. She was sent here after seeing PCP office. Patient reports beginning of illness 2 weeks ago grandson diagnosed RSV. She has had sinus congestion. Symptoms of upper respiratory were started to improve. This past Sunday increased severe pain across her upper abdomen. Nausea when she eats. No vomiting no diarrhea no urinary symptoms however states recent urines a lot more dark in color she is taking less p.o. intake. Seeing her doctor today states had a fever tachycardic. Started having a cough. She still has upper abdominal pain that goes to her back. Denies alcohol history. Denies any abdominal surgeries. Father had pancreatic cancer. Allergies to chlorhexidine and penicillin. In the emergency room she was febrile to 103.4. Heart rate ranges from 120-140 and blood pressure has been ranging from 1 40-1 60 systolic /80s to 90s diastolic. 08/29/24 15:11: WBC 13.5 H, RBC 5.33, Hgb 14.6, Hct 44.1, MCV 82.7, MCH 27.4, MCHC 33.1, RDW Std Deviation 38.4, RDW Coeff of Fabio 12.8, Plt Count 202, MPV 10.7, Immature Gran % (Auto) 0.600, Neut % (Auto) 93.9 H, Lymph % (Auto) 2.0 L, Stanley % (Auto) 3.3, Eos % (Auto) 0.0, Baso % (Auto) 0.2, Absolute Neuts (auto) 12.6 H, Absolute Lymphs (auto) 0.27 L, Nucleated RBC % 0, PT 13.5, INR 1.0, APTT27.9, Sodium 134, Potassium 3.9, Chloride 99, Carbon Dioxide 20.2 L, Anion Gap 14, BUN 8, Creatinine 0.74, Estim Creat Clear Calc 95.78, Est GFR (MDRD) Non-Af 99, BUN/Creatinine Ratio 10.3, Glucose 175 H, Lactic Acid 1.6, Calcium 9.0, Total Bilirubin 4.42 H, Direct Bilirubin 2.99 H, AST 250 H, ALT 628 H, Alkaline Phosphatase 266 H, Total Protein 7.4, Albumin 4.3, Globulin 3.2, Lipase 13 08/29/24 16:26: Urine Color Straw, Urine Clarity Clear, Urine pH 6.0, Ur Specific Goltry 1.010, Urine Protein 30 H, Urine Glucose (UA) Normal, Urine Ketones 50 H, Urine Occult Blood 25 H, Urine Nitrite Positive H, Urine Bilirubin6 H, Urine Urobilinogen 8 H, Ur Leukocyte Esterase 25 H, Urine RBC 0-5 SEEN, Urine WBC 5-10 SEEN, Ur Squamous Epith Cells 0-5 SEEN, Urine Bacteria 1+, Urine Mucus RARE, Urine Test Negative CT/Abdomen/Pelvis W IV Cont ONLY IMPRESSION: Gallstones. Possible gallstone in the neck of the gallbladder. Mild degree of central intrahepatic biliary ductal dilatation. Correlation withultrasound recommended for further evaluation. Fatty infiltration of the liver. US/Gallbladder IMPRESSION: 1. Distended gallbladder with cholelithiasis. No pericholecystic fluid or significant wall thickening. Mildly dilated common bile duct measuring 8 mm. Consider MRCP for further assessment if indicated. 2. Hepatic steatosis. 3. Nonspecific hypoechoic lesion in the right hepatic lobe, not a simple cyst. Recommend further evaluation with nonemergent contrast-enhanced MRI. [facility] Medical History (Updated 08/29/24 @ 18:[address] Paolo Waller, DO) PCOS (polycystic ovarian syndrome) Migraine headache Home Medications ?Medication ?Instructions ?Recorded ?Last Taken ?Type thyroid (pork) 60 mg tablet 60 mg PO DAILY 08/23/20 History ([place] Thyroid) cholecalciferol (vitamin D3) 1 tab PO DAILY 08/29/24 U nknown History levothyroxine 25 mcg tablet 25 mcg PO SUTUWETHSA 08/2908/29/24 History magnesium citrate 125 mg capsule 250 mg PO QHS 5 Unknown History metformin 500 mg tablet 500 mg PO DAILY 08/29/24 Unk nown History Allergy/AdvReac Type Severity Reaction Status Date / Time Penicillins Allergy Intermediate Hives Verified 08/30/20 13:09 chlorhexidine Allergy Mild Rash Verified 08/30/20 13:09 Family History Other Cancer Diabetes Heart disease Hypertension Surgical History History of lobectomy of thyroid Social History household members: spouse housing: house Smoking Status: Never smoker ROS Constitutional Constitutional: Denies fatigue, fever(s), poor appetite, weight gain or weight loss Gastrointestinal Gastrointestinal: Denies belching, bloating, change in bowel habits, change in stool character, chewing difficulty, coffee ground emesis, constipation, cramping, diarrhea, dyspepsia, dysphagia, early satiety, excessive flatus, fecalincontinence, heartburn, hematemesis, hematochezia, hemorrhoids, loose stools, melena, nausea, odynophagia, rectal bleeding, tenesmus, vomiting or weight changes Vital Signs Vital Signs Vital Signs: 08/29/24 13:45 08/29/24 15:31 08/29/24 17:44 Temperature 102.4 F H Temperature Source Temporal Pulse Rate 138 H 100 Respiratory Rate 17 Respiratory Effort Normal Non-Labored Respiratory Pattern Normal Blood Pressure 160/93 H 118/79 Blood Pressure Mean 115 92 Pulse Ox 100 94 Oxygen Delivery Method Room Air Weight Weight: 202 lb Body Mass Index (BMI) 36.9 Physical Exam Const alert, oriented x3, no apparent distress and healthy appearing General Appearance: cooperative GI normal to inspection, nondistended, normoactive bowel sounds, soft to palpation,non-tender and non-distended Percussion: normal to percussion Rectal Exam: deferred Results Lab / Micro Data 08/29/24 15:11 08/29/24 15:11 Labs: Laboratory Results - last 24 hr 08/29/24 15:11: WBC 13.5 H, RBC 5.33, Hgb 14.6, Hct 44.1, MCV 82.7, MCH 27.4, MCHC 33.1, RDW Std Deviation 38.4, RDW Coeff of Fabio 12.8, Plt Count 202, MPV 10.7, Immature Gran % (Auto) 0.600, Neut % (Auto) 93.9 H, Lymph % (Auto) 2.0 L, Stanley % (Auto) 3.3, Eos % (Auto) 0.0, Baso % (Auto) 0.2, Absolute Neuts (auto) 12.6 H, Absolute Lymphs (auto) 0.27 L, Nucleated RBC % 0, PT 13.5, INR 1.0, APTT27.9, Sodium 134, Potassium 3.9, Chloride 99, Carbon Dioxide 20.2 L, Anion Gap 14, BUN 8, Creatinine 0.74, Estim Creat Clear Calc 95.78, Est GFR (MDRD) Non-Af 99, BUN/Creatinine Ratio 10.3, Glucose 175 H, Lactic Acid 1.6, Calcium 9.0, Total Bilirubin 4.42 H, Direct Bilirubin 2.99 H, AST 250 H, ALT 628 H, Alkaline Phosphatase 266 H, Total Protein 7.4, Albumin 4.3, Globulin 3.2, Lipase 13 08/29/24 16:26: Urine Color Straw, Urine Clarity Clear, Urine pH 6.0, Ur Specific Goltry 1.010, Urine Protein 30 H, Urine Glucose (UA) Normal, Urine Ketones 50 H, Urine Occult Blood 25 H, Urine Nitrite Positive H, Urine Bilirubin6 H, Urine Urobilinogen 8 H, Ur Leukocyte Esterase 25 H, Urine RBC 0-5 SEEN, Urine WBC 5-10 SEEN, Ur Squamous Epith Cells 0-5 SEEN, Urine Bacteria 1+, Urine Mucus RARE, Urine Test Negative Micro: Microbiology 08/29/24 13:50 Mucosa - Nose SARS-CoV-2, Influenza & RSV (PCR) - Final RSV Imaging Radiology Impression Abdomen/Pelvis CT 08/29/24 15:09 IMPRESSION: Gallstones. Possible gallstone in the neck of the gallbladder. Mild degree of central intrahepatic biliary ductal dilatation. Correlation withultrasound recommended for further evaluation. Fatty infiltration of the liver. One or more dose reduction techniques were used (e.g., Automated exposure control, adjustment of the mA and/or kV according to patient size, use of iterative reconstruction technique). Reading Location: [id number] Chest X-Ray 08/29/24 16:00 IMPRESSION: No acute abnormality is seen. Reading Location: [facility] Gallbladder Ultrasound 08/29/24 16:08 IMPRESSION: 1. Distended gallbladder with cholelithiasis. No pericholecystic fluid or significant wall thickening. Mildly dilated common bile duct measuring 8 mm. Consider MRCP for further assessment if indicated. 2. Hepatic steatosis. 3. Nonspecific hypoechoic lesion in the right hepatic lobe, not a simple cyst. Recommend further evaluation with nonemergent contrast-enhanced MRI. Reading Location: [facility] Assessment & Plan Assessment/Plan (1) Ascending cholangitis: (2) Hepatic lesion: (3) Obstructive jaundice: PLAN: 48-year-old close significant past medical history arrives to the near with abdominal pain and darkening urine. She was discovered to have jaundiced acholestatic hepatitis and with imaging displaying dilated common bile duct on CTscan and ultrasound along with intrahepatic ductal dilation. There is a high suspicion for ascending cholangitis secondary to choledocholithiasis. Recommend emergent ERCP. She was explained alternatives, risk, benefits including not withstanding bleeding, infection, sepsis, perforation, need for emergent surgery and . She was also explained the risk of post ERCP pancreatitis. She will have an ASA 3. Charges/Coding Visit Charges Inpatient E&M: 26515 Init Hosp L3 08/29/24 1840 <Electronically signed by Paolo Waller DO> Cosigner Signature (if applicable): CC: Dr. Milton Cody MD; Paolo Waller DO~ Signed [facility] Work Phone: [phone]) [phone] Consult note Author Deacon Burgos [facility] Note Date/Time August 29, 2024 6:34 pm [facility] Medical Records Department [address] [place] [address] Consultation - Surgical 08/29/241924 MR#: [id number] Acct: [id number] Name: GALILEA GLASS Rep #:[id number] : 1975 48 From: Deacon Duckworth PCP: Dr. Milton Cody MD Status:ADM I N Location: [place] [address] Assessment & Plan Assessment/Plan (1) Obstructive jaundice: PLAN: Patient is 48-year-old female with apparent cholangitis and obstructive jaundice?likely owing to a underlying diagnosis of choledocholithiasis. Patientis pending ERCP with gastroenterology. Will await findings of this study as well as patient's clinical response to this intervention. I did discuss with patient that I would plan for same?admission laparoscopic cholecystectomy with intraoperative cholangiography to mitigate her risk for further issues from gallstones. Procedure was described in detail. I suggested that we follow-up tomorrow and be sure she responds appropriately. In the event that patient is clinically ready for surgery would recommend keeping her n.p.o. past midnight. Deacon Burgos MD General Surgery Endocrine Surgery Pager: [facility] [address], [address]ilion, [address] [place] [address] Office: [phone] HPI Consult Data Date of Consult: 08/29/24 HPI Narrative Reason for Consultation: Choledocholithiasis with cholangitis HPI Narrative: GALILEA GLASS, is a 48 F who presents to [facility] emergency department on direction from her PCP office after presenting there for a myriad of symptoms. She notes recently her grandchild was diagnosed with RSV and she suspected that she had fallen ill with this condition but was never formally tested. She then reports on 08/27/2024 she awoken with a sharp pain in her stomach. She states the pain was so intense that had her doubled over and she felt sweaty but when checking her temperature she found she was afebrile. She notes taking some antacids to try to improve the pain but she generally had a poor appetite. She was not seen that day but reports feeling rundown yesterday with somewhat less abdominal pain. She reports she did have some darker colored urine but this was attributed to a relative dehydrated status. She then woke this morning with severe back pain which she attributed to vigorous coughing. With this back pain and some associated chills she sought a sick visit with her PCP where she saw a nurse practitioner who commented they felt that she had some fluid buildup in her ears and recommended overall conservative treatment but expressed concern about her returning home. Patient's evaluation in the ER included biochemical evaluation with laboratoriesincluding CMP that showed transaminitis and hyperbilirubinemia with a T. bili of4.42. CBC demonstrated leukocytosis with left shift. Initially CT imaging of the abdomen pelvis was obtained that showed gallbladder with some gallstones (1 possibly located in the neck) but more prominently there was a dilated common bile duct and some evidence of diffuse fatty liver infiltration. Given patient's laboratories and the finding of a dilated common bile duct ultrasound was performed reflexively. Once again this showed a distended gallbladder with cholelithiasis but, notably, radiology stated there is no evidence of wall thickening or pericholecystic fluid. They did note the patient's common bile duct measured 8 mm in diameter. With these findings surgery is asked to evaluate patient for possible cholecystectomy. Emergency medicine noted that they had previously contacted gastroenterology and ERCP was pending for today. Patient past medical history notable for some hypothyroidism and PCOS. Surgically?speaking patient has a history of thyroid lobectomy and more remotelya history of several sections [facility] Medical History PCOS (polycystic ovarian syndrome) Migraine headache Home Medications ?Medication ?Instructions ?Recorded ?Last Taken ?Type thyroid (pork) 60 mg tablet 60 mg PO DAILY 08/23/20 History ([place] Thyroid) cholecalciferol (vitamin D3) 1 tab PO DAILY 08/29/24 U nknown History levothyroxine 25 mcg tablet 25 mcg PO SUTUWETHSA 08/2908/29/24 History magnesium citrate 125 mg capsule 250 mg PO QHS 5 Unknown History metformin 500 mg tablet 500 mg PO DAILY 08/29/24 Unk nown History Allergy/AdvReac Type Severity Reaction Status Date / Time Penicillins Allergy Intermediate Hives Verified 08/30/20 13:09 chlorhexidine Allergy Mild Rash Verified 08/30/20 13:09 Family History Other Cancer Diabetes Heart disease Hypertension Surgical History History of lobectomy of thyroid Social History household members: spouse housing: house Smoking Status: Never smoker Physical Exam Const alert Constitutional Narrative: Mildly distressed from abdominal discomfort, visibly jaundiced Nutritional Appearance: obese Resp normal respiratory effort GI GI Narrative: Obese, no visible scars to the upper abdomen, nondistended, soft, mildly tender across the epigastrium. Negative Lamar sign. Lab / Micro Data 08/29/24 15:11 08/29/24 15:11 Labs: Laboratory Results - last 24 hr 08/29/24 15:11: WBC 13.5 H, RBC 5.33, Hgb 14.6, Hct 44.1, MCV 82.7, MCH 27.4, MCHC 33.1, RDW Std Deviation 38.4, RDW Coeff of Fabio 12.8, Plt Count 202, MPV 10.7, Immature Gran % (Auto) 0.600, Neut % (Auto) 93.9 H, Lymph % (Auto) 2.0 L, Stanley % (Auto) 3.3, Eos % (Auto) 0.0, Baso % (Auto) 0.2, Absolute Neuts (auto) 12.6 H, Absolute Lymphs (auto) 0.27 L, Nucleated RBC % 0, PT 13.5, INR 1.0, APTT27.9, Sodium 134, Potassium 3.9, Chloride 99, Carbon Dioxide 20.2 L, Anion Gap 14, BUN 8, Creatinine 0.74, Estim Creat Clear Calc 95.78, Est GFR (MDRD) Non-Af 99, BUN/Creatinine Ratio 10.3, Glucose 175 H, Lactic Acid 1.6, Calcium 9.0, Total Bilirubin 4.42 H, Direct Bilirubin 2.99 H, AST 250 H, ALT 628 H, Alkaline Phosphatase 266 H, Total Protein 7.4, Albumin 4.3, Globulin 3.2, Lipase 13 08/29/24 16:26: Urine Color Straw, Urine Clarity Clear, Urine pH 6.0, Ur Specific Goltry 1.010, Urine Protein 30 H, Urine Glucose (UA) Normal, Urine Ketones 50 H, Urine Occult Blood 25 H, Urine Nitrite Positive H, Urine Bilirubin6 H, Urine Urobilinogen 8 H, Ur Leukocyte Esterase 25 H, Urine RBC 0-5 SEEN, Urine WBC 5-10 SEEN, Ur Squamous Epith Cells 0-5 SEEN, Urine Bacteria 1+, Urine Mucus RARE, Urine Test Negative Micro: Microbiology 08/29/24 13:50 Mucosa - Nose SARS-CoV-2, Influenza & RSV (PCR) - Final RSV Imaging Radiology Impression Abdomen/Pelvis CT 08/29/24 15:09 IMPRESSION: Gallstones. Possible gallstone in the neck of the gallbladder. Mild degree of central intrahepatic biliary ductal dilatation. Correlation withultrasound recommended for further evaluation. Fatty infiltration of the liver. One or more dose reduction techniques were used (e.g., Automated exposure control, adjustment of the mA and/or kV according to patient size, use of iterative reconstruction technique). Reading Location: [facility] Chest X-Ray 08/29/24 16:00 IMPRESSION: No acute abnormality is seen. Reading Location: [id number] Gallbladder Ultrasound 08/29/24 16:08 IMPRESSION: 1. Distended gallbladder with cholelithiasis. No pericholecystic fluid or significant wall thickening. Mildly dilated common bile duct measuring 8 mm. Consider MRCP for further assessment if indicated. 2. Hepatic steatosis. 3. Nonspecific hypoechoic lesion in the right hepatic lobe, not a simple cyst. Recommend further evaluation with nonemergent contrast-enhanced MRI. Reading Location: [facility] Charges/Coding Visit Charges Inpatient E&M: 43090 Init Hosp L2 08/29/241933 <Electronically signed by Deacon Burgos MD> Cosigner Signature (if applicable): CC: Dr. Milton Cody MD; Paolo Friend, DO~ Signed [facility] Work Phone: 1(738) 449-873103-07-2025 Evaluation note* Diagnosis Onset Date Resolution Status Admit Date Ascending cholangitis acute [facility] 2024 6:22pm Hepatic lesion acute August 29, 2024 6:22pm Obstructive jaundice acute [facility] 2024 6:22pm [facility] Work Phone: 1([phone]) 190-724803-07-2025 Evaluation note* Diagnosis Onset Date Resolution Status Admit Date Ascending cholangitis acute [facility] 2024 6:22pm Choledocholithiasis acute August 29, 2024 6:22pm Cholelithiasis acute August 29, 2024 6:22pm Hepatic lesion acute August 29, 2024 6:22pm Obstructive jaundice acute [facility] 2024 6:22pm [facility] Work Phone: [phone] 620-559003-07-2025 Evaluation note* Diagnosis Onset Date Resolution Status Admit Date Ascending cholangitis resolved [facility] 2024 6:22pm Choledocholithiasis resolved August 29, 2024 6:22pm Cholelithiasis resolved August 29, 2024 6:22pm Hepatic lesion resolved August 29, 2024 6:22pm Obstructive jaundice resolved [facility] 2024 6:22pm Liver lesion, right lobe acute September 10, 2024 12:31pm Oral thrush acute September 10, 2 025 12:31pm S/P cholecystectomy acute September 10, 2024 12:31pm S/P cholecystectomy acute September 19, 2024 1:16pm [facility] Work Phone: [phone]) 785-812603-07-2025 Evaluation note* Diagnosis Onset Date Resolution Status Admit Date Ascending cholangitis resolved Aug 6:22pm Choledocholithiasis resolved August 29, 2024 6:22pm Cholelithiasis resolved August 29, 2024 6:22pm Hepatic lesion resolved August 29, 2024 6:22pm Obstructive jaundice resolved 2024 6:22pm Liver lesion, right lobe acute September 10, 2024 12:31pm Oral thrush acute September 10 12:31pm S/P cholecystectomy acute September 10, 2024 12:31pm S/P cholecystectomy acute September 19, 2024 1:16pm S/P cholecystectomy acute September 26, 2024 8:02am Ascending cholangitis resolved November 10, 2024 11:11am [facility] Work Phone: 1(106) 716-901203-07-2025 Consult note Author Ruy Gallagher [facility] Note Date/Time August 29, 2024 6:18 pm [facility] Medical Records Department [address] [place] [address] Pre-Anesthesia Evaluation 08/29/24 1851 MR#: [id number] Acct: [id number] Name: GALILEA GLASS Rep #:[id number] : 1975 48 From: Ruy Gallagher MD PCP: Dr. Milton Cody MD Status:ADM I N Y Race: C Location: [place] [address] ASA Classification* ASA Classification ASA Classification: 2 and E Assessment & Plan Anesthesia* Anesthesia Assessment Anesthesia Assessment: Discussed sedation and/or anesthesia options, risks, benefits, and alternatives with patient/parents/legal guardian/POA. Questions invited. The patient/parents/legal guardian/POA seems to understand and agrees to proceedwith anesthesia plan. Reviewed the physical assessment, medical history, allergy history and patient home medications list prior to surgery/procedure/anesthetic and documented any changes. Performed airway and anesthesia risk assessments. Anesthesia Type Anesthesia Type: General Anesthesia Focused Assessment* Temperature: 98.7 F Pulse Rate: 106 Blood Pressure: 111/78 Respiratory Rate: 16 Pulse Ox: 94 Airway Assessment Mouth opens: >3 cm Mallampati Score: II Focused Labs Anesthesia Preop lab: CBC WBC 13.5 K/mm3 (4.4-11.0) H 08/29/24 15:11 5 RBC 5.33 M/mm3 (4.2-5.4) 08/29/24 15:11 08/29/24 Hgb 14.6 g/dL (12.0-15.0) 08/29/24 15:11 08/29/24 Hct 44.1 % (37-47) 08/29/24 15:11 08/29/24 Plt Count 202 K/mm3 (150-450) 08/29/24 15:11 08/29/24 CHEMISTRY Potassium 3.9 mmol/L (3.3-5.1) 08/29/24 15:11 08/29/24 Sodium 134 mmol/L (133-145) 08/29/24 15:11 08/29/24 BUN 8 mg/dL (4-19) 08/29/24 15:11 08/29/24 Creatinine 0.74 mg/dL (0.70-1.20) 08/29/24 15:11 08/29/24 Glucose 175 mg/dL (70-99) H 08/29/24 15:11 08/29/24 TSH 0.14 uIU/mL (0.358-3.74) L 09/01/19 12:06 0303/14 COAG PT 13.5 SECONDS (11.7-14.9) 08/29/24 15:11 Urine Test Negative Negative 08/29/24 16:26 08/29/24 Pre-Assessment Diagnosis/Proposed Procedure Planned Operative Procedure(s): ERCP Anesthesia History Anesthesia History - piece cutter: Anesthesia History - piece cutter Hx Hospitalization Any Problems With Anesthesia No 08/29/24 18:21 Cholinesterase deficiency No 08/29/24 18:21 You/Your Family Experience No 08/29/24 18:21 fever (hyperthermia) with Relationship Recent Exposure to Contagious No 08/29/24 18:21 Disease Does patient have nerve No 08/29/24 18:21 stimulator Patient instructed to have device shut off --Does patient have Pacemaker No 08/29/24 18:21 or ICD? When Was Last Pacemaker Check QUESTION #4 FULL TEXT: You/Your Family Experience fever (hyperthermia) with Anesthesia Last Oral Intake Last Oral intake: Last Oral Intake NPO since 14:30 08/29/24 18:21 Meds taken in AM with sips of water? Meds patient instructed to take am of surgery PONV PONV - piece cutter: PONV - piece cutter Female HX of Motion Sickness HX of N/V After Surgery Non-Smoker Duration of Surgery greater than 60 minutes Number of Risk Factors PONV Score Height & Weight Height & Weight: Anesthesia: Height & Weight Height 5 ft 2 in 08/29/24 18:21 Weight: 91.626 kg 08/29/24 18:21 Body Mass Index (BMI) 36.9 08/29/24 18:21 Respiratory Assessment Respiratory Assessment - piece cutter: Respiratory Tract Infection Hx - piece cutter Hx Respiratory Tract Infection Yes 08/29/24 18:21 STOP Sleep Apnea STOP Sleep Apnea - piece cutter: STOP Sleep Apnea - piece cutter Hx Hypertension No 08/29/24 18:21 Hx Sleep Apnea No 08/29/24 18:21 CPAP BIPAP Do you snore loudly (louder No 08/29/24 18:21 than talking or can be heard Do you often feel tired/ No 08/29/24 18:21 fatigued/ sleepy during daytime? Has anyone observed you stop No 08/29/24 18:21 breathing during sleep? STOP Results Negative 08/29/24 18:21 QUESTION #5 FULL TEXT : Do you snore loudly (louder than talking or can be heard through closed doors)? Tobacco Use History Tobacco Use History - piece cutter: Tobacco Use History - piece cutter Tobacco Use Smoking Status Never smoker 08/29/24 15:31 Hx Tobacco Use Years Smoking Packs Smoked per Day Smoking Cessation Date was within the last 15 years Hx Smoking Cessation Date Hx Smoking Cessation Counseling Hematologic Medial History Hematologic Hx - piece cutter: Hematologic Medical Hx - lifestyle consultant Hx of Blood Transfusion Hx of Transfusion in last 3 Months Date of Last Transfusion (if within last 3 months) Ever experience any problems with transfusion(s)? Specify any problems Hx of Preganancy in last 3 Months Nurse Filling Out Transfusion & Questions: Date: Time: Patient unable to answer at this time (ie. confused, unrespo /Reproduction History /Reproductive History - piece cutter: /Reproductive Hx- piece cutter Hx Now No 08/29/24 18:21 Gestational Age (in weeks): EDC: Hx Hx Para Hx Section SAB No 08/29/24 18:21 PFS Medical History PCOS (polycystic ovarian syndrome) Migraine headache Home Medications ?Medication ?Instructions ?Recorded ?Last Taken ?Type thyroid (pork) 60 mg tablet 60 mg PO DAILY 08/23/20 History ([facility] Thyroid) cholecalciferol (vitamin D3) 1 tab PO DAILY 08/29/24 U nknown History levothyroxine 25 mcg tablet 25 mcg PO SUTUWETHSA 08/2908/29/24 History magnesium citrate 125 mg capsule 250 mg PO QHS 5 Unknown History metformin 500 mg tablet 500 mg PO DAILY 08/29/24 Unk nown History Allergy/AdvReac Type Severity Reaction Status Date / Time Penicillins Allergy Intermediate Hives Verified 08/30/20 13:09 chlorhexidine Allergy Mild Rash Verified 08/30/20 13:09 Family History Other Cancer Diabetes Heart disease Hypertension Surgical History History of lobectomy of thyroid Social History household members: spouse housing: house Smoking Status: Never smoker Review of Systems (Anesthesia) ROS Narrative System reviewed and no additional complaints, except as documented. 08/29/24 191 <Electronically signed by Ruy Gallagher MD > Date _ Ruy Gallagher MD Cosigner Signature: Date CC: ~ Signed [facility] Work Phone: [phone]) [phone] History and physical note [facility] Medical Records Department [address] [place] [address] H&P Exam - Hospitalist 08/29/24 1743 MR#: [id number] Acct: [id number] Name: GALILEA GLASS Rep #:[id number] : 1975 48 From: Spencer barragan DO PCP: Dr. Milton Cody MD Status:ADM I N Location: [place] [address] HPI - General General Date of Admission: 08/29/24 Date of Service: 08/29/24 Chief Complaint: Severe upper abdominal pain with nausea and fevers, URI symptoms HPI Narrative GALILEA GLASS, is a 48 F who presented to [facility] ED on 09/16with multiple concerns including recent URI symptoms and intermittent episodes of severe upper abdominal pain radiatingto the back with nausea and new onset fevers. Patient's grandson was diagnosed with RSV about 2 weeks ago and she began having URI symptoms recently that she attributed to likely RSV. However, 2 daysago she had an episode of severe upper abdominal pain with nausea. [place] she has continued to have nausea and has not developed fairly persistent upper abdominal pain radiating to the back and fevers with chills. She was found to be RSV positive in the ED. CT abdomen pelvis showed gallstones, possible gallstone in the neck of the gallbladder and mild degree of central intrahepatic biliary ductal dilation. Gallbladder ultrasound showed a distendedgallbladder with cholelithiasis and mildly dilated common bile duct concerning for choledocholithiasis. Given these findings, ED physician discussed case withboth Dr. Waller and Dr. Burgos. Dr. Waller saw the patient at bedside and had concern for acute cholangitis secondary to choledocholithiasis and determined totake the patient to endoscopy for ERCP this evening. Dr. Burgos also saw the patient and is recommending cholecystectomy sometime prior to discharge. Hospitalist was then contacted for admission. I saw the patient at bedside in the ED, and son were present. Patient was mildly fatigued appearing but otherwise laying back fairly comfortably in bed and conversing normally. She stated herpain was much improved from earlierwith pain medication. She denied any fevers or chills currently.Denied any nausea. No other acute concerns this time. [facility] Medical History PCOS (polycystic ovarian syndrome) Migraine headache Home Medications ?Medication ?Instructions ?Recorded ?Last Taken ?Type thyroid (pork) 60 mg tablet 60 mg PO DAILY 08/23/20 History ([place] Thyroid) cholecalciferol (vitamin D3) 1 tab PO DAILY 08/29/24 U nknown History levothyroxine 25 mcg tablet 25 mcg PO SUTUWETHSA 08/2908/29/24 History magnesium citrate 125 mg capsule 250 mg PO QHS 5 Unknown History metformin 500 mg tablet 500 mg PO DAILY 08/29/24 Unk nown History Allergy/AdvReac Type Severity Reaction Status Date / Time Penicillins Allergy Intermediate Hives Verified 08/30/20 13:09 chlorhexidine Allergy Mild Rash Verified 08/30/20 13:09 Family History Other Cancer Diabetes Heart disease Hypertension Surgical History History of lobectomy of thyroid Social History household members: spouse housing: house Smoking Status: Never smoker ROS Constitutional Constitutional: Reports chills and fever(s); Denies fatigue or weakness Eyes Eyes: Denies change in vision Cardiovascular Cardiovascular: Denies chest pain Respiratory/Chest Respiratory/Chest: Denies cough or shortness of breath at rest Gastrointestinal Gastrointestinal: Reports abdominal pain, nausea and vomiting; Denies constipation or diarrhea Musculoskeletal Musculoskeletal: Reports back pain; Denies arthralgias or myalgias Vital Signs Vital Signs Vital Signs: 08/29/24 13:45 08/29/24 15:31 Temperature 102.4 F H Temperature Source Temporal Pulse Rate 138 H Respiratory Rate 17 Respiratory Effort Normal Non-Labored Respiratory Pattern Normal Blood Pressure 160/93 H Blood Pressure Mean 115 Pulse Ox 100 Oxygen Delivery Method Room Air Weight Weight: 91.626 kg Body Mass Index (BMI) 36.9 Physical Exam Const alert, oriented x3 and no apparent distress Constitutional Narrative: Middle-age female, class II obesity, mildly fatigued appearing but otherwise laying back comfortably in bed, conversing normally, in no acute distress. General Appearance: cooperative and comfortable HEENT normocephalic, head/scalp atraumatic, hearing grossly normal bilaterally, nasal mucous membranes and turbinates normal and moist oral mucous membranes Eyes PERRL, EOMs intact bilaterally and conjunctivae normal Neck full ROM Chest inspection of chest normal Resp normal respiratory effort, normal air movement, no use of accessory muscles and clear to auscultation bilaterally Cardio regular rate, regular rhythm, no murmurs and peripheral pulses 2+ throughout GI GI Narrative: Mild tenderness to palpation in epigastric to right upper quadrant areas. Abdomen otherwise soft and nondistended on palpation. Back/Spine normal ROM Extremity normal to inspection, full ROM and no pedal edema Skin no rashes or lesions noted Neuro moves all extremities and no focal motor deficits Speech: speech normal Motor Exam: strength 5/5 throughout Psych mental status grossly normal Results Lab / Micro Data 08/29/24 15:11 08/29/24 15:11 Labs: Laboratory Results - last 24 hr 08/29/24 15:11: WBC 13.5 H, RBC 5.33, Hgb 14.6, Hct 44.1, MCV 82.7, MCH 27.4, MCHC 33.1, RDW Std Deviation 38.4, RDW Coeff of Fabio 12.8, Plt Count 202, MPV 10.7, Immature Gran % (Auto) 0.600, Neut % (Auto) 93.9 H, Lymph % (Auto) 2.0 L, Stanley % (Auto) 3.3, Eos % (Auto) 0.0, Baso % (Auto) 0.2, AbsoluteNeuts (auto) 12.6 H, Absolute Lymphs (auto) 0.27 L, Nucleated RBC % 0, PT 13.5, INR 1.0, APTT27.9, Sodium 134, Potassium 3.9, Chloride 99, Carbon Dioxide 20.2 L, Anion Gap 14, BUN 8, Creatinine 0.74,Estim Creat Clear Calc 95.78, Est GFR (MDRD) Non- Af 99, BUN/Creatinine Ratio 10.3, Glucose 175 H, Lactic Acid 1.6, Calcium 9.0, Total Bilirubin 4.42 H, Direct Bilirubin 2.99 H, AST 250 H, ALT 628 H, Alkaline Phosphatase 266 H, Total Protein 7.4, Albumin 4.3, Globulin 3.2, Lipase 13 08/29/24 16:26: Urine Color Straw, Urine Clarity Clear, Urine pH 6.0, Ur Specific Goltry 1.010, Urine Protein 30 H, Urine Glucose (UA) Normal, Urine Ketones 50 H, Urine Occult Blood 25 H, Urine Nitrite Positive H, Urine Bilirubin6 H, Urine Urobilinogen 8 H, Ur Leukocyte Esterase 25 H Micro: Microbiology 08/29/24 13:50 Mucosa - Nose SARS-CoV-2, Influenza & RSV (PCR) - Final RSV Imaging Radiology Impression Abdomen/Pelvis CT 08/29/24 15:09 IMPRESSION: Gallstones. Possible gallstone in the neck of the gallbladder. Mild degree of central intrahepatic biliary ductal dilatation. Correlation withultrasound recommended for further evaluation. Fatty infiltration of the liver. One or more dose reduction techniques were used (e.g., Automated exposure control, adjustment of the mA and/or kV according to patient size, use of iterative reconstruction technique). Reading Location: [facility] Chest X-Ray 08/29/24 16:00 IMPRESSION: No acute abnormality is seen. Reading Location: [facility] Gallbladder Ultrasound 08/29/24 16:08 IMPRESSION: 1. Distended gallbladder with cholelithiasis. No pericholecystic fluid or significant wall thickening. Mildly dilated common bile duct measuring 8 mm. Consider MRCP for further assessment if indicated. 2. Hepatic steatosis. 3. Nonspecific hypoechoic lesion in the right hepatic lobe, not a simple cyst. Recommend further evaluation with nonemergent contrast-enhanced MRI. Reading Location: [facility] Assessment & Plan Assessment/Plan (1) Ascending cholangitis: (2) Obstructive jaundice: PLAN: Plan Patient is a 48-year-old female who presented [facility] ED on 08/29/2024 with abdominal pain with nausea, fever/chills and URI symptoms. 1. Choledocholithiasis with concern for acute cholangitis ? Admit under inpatient status to PCU. GI and general surgery consulted. CT abdomen pelvis and gallbladder ultrasound on admit showed distended gallbladder with multiple calculi and dilated common bile duct. LFTs with T. bili 4.4, direct bili 2.9, AST 250, ALT 628, alk phos 266. Fevers present on admission. No hypotension or altered mentation noted. Per GI, planning for ERCP this evening, will maintain n.p.o. status for now. Per general surgery, planning forcholecystectomy at some point during this hospitalization. Will treat with IV Levaquin and Flagyl. Given 2 L of IV fluids in the ED. Oxycodone as needed andIV morphine as needed for pain control. Monitor closely. 2. RSV infection ? Patient tested positive for RSV on admit. Mild URI symptoms noted. Chest x-ray unremarkable. Treated with symptomatic management. Contact precautions in place. 3. Hypothyroidism ? TSH low but free T4 normal on admit. Continue home Synthroid. Outpatient follow-up for dose adjustments as needed. 4. Type 2 diabetes mellitus ? On home metformin 500 mg daily. Will treat with sliding scale insulin with meals while inpatient. 5. Class II obesity ? BMI 36 on admit. Complicates hospital course, care and prognosis. DVT prophylaxis: Lovenox CODE STATUS: Full code, verified Expected disposition: Home, TBD Total clinical time spent by myself addressing the patient's medical issues, reviewing all the data, and collaborating with patient's care team: 75 minutes. Charges/Coding Visit Charges Inpatient E&M: 27197 Init Hosp L3 08/29/242051 Cosigner Signature (if applicable): CC: Dr. Spencer La DO; Dr. Milton Cody MD~ Signed [facility]03-07-2025 History and physical note Author Spencer La [facility] Note Date/Time August 29, 2024 8:52 pm [facility] System Medical Records Department [address] [place] [address] H&P Exam - Hospitalist 08/29/24 1743 MR#: [id number] Acct: [id number] Name: GALILEA GLASS Rep #:[id number] : 1975 48 From: Spencer barragan DO PCP: Dr. Milton Cody MD Status:ADM I N [facility] HPI - General General Date of Admission: 08/29/24 Date of Service: 08/29/24 Chief Complaint: Severe upper abdominal pain with nausea and fevers, URI symptoms HPI Narrative GALILEA GLASS, is a 48 F who presented to [facility] ED on 09/16with multiple concerns including recent URI symptoms and intermittent episodes of severe upper abdominal pain radiating to the back with nausea and new onset fevers. Patient's grandson was diagnosed with RSV about 2 weeks ago and she began having URI symptoms recently that she attributed to likely RSV. However, 2 days ago she had an episode of severe upper abdominal pain with nausea. [place] she has continued to have nausea and has not developed fairly persistent upper abdominal pain radiating to the back and fevers with chills. She was found to be RSV positive in the ED. CT abdomen pelvis showed gallstones, possible gallstone in the neck of the gallbladder and mild degree of central intrahepatic biliary ductal dilation. Gallbladder ultrasound showed a distendedgallbladder with cholelithiasis and mildly dilated common bile duct concerning for choledocholithiasis. Given these findings, ED physician discussed case withboth Dr. Waller and Dr. Burgos. Dr. Waller saw the patient at bedside and had concern for acute cholangitis secondary to choledocholithiasis and determined totake the patient to endoscopy for ERCP this evening. Dr. Burgos also saw the patient and is recommending cholecystectomy sometime prior to discharge. Hospitalist was then contacted for admission. I saw the patient at bedside in the ED, and son were present. Patient was mildly fatigued appearing but otherwise laying back fairly comfortably in bed and conversing normally. She stated her pain was much improved from earlierwith pain medication. She denied any fevers or chills currently. Denied any nausea. No other acute concerns this time. [facility] Medical History PCOS (polycystic ovarian syndrome) Migraine headache Home Medications ?Medication ?Instructions ?Recorded ?Last Taken ?Type thyroid (pork) 60 mg tablet 60 mg PO DAILY 08/23/20 History ([facility] Thyroid) cholecalciferol (vitamin D3) 1 tab PO DAILY 08/29/24 U nknown History levothyroxine 25 mcg tablet 25 mcg PO [facility] 08/2908/29/24 History magnesium citrate 125 mg capsule 250 mg PO QHS 5 Unknown History metformin 500 mg tablet 500 mg PO DAILY 08/29/24 Unk nown History Allergy/AdvReac Type Severity Reaction Status Date / Time Penicillins Allergy Intermediate Hives Verified 08/30/20 13:09 chlorhexidine Allergy Mild Rash Verified 08/30/20 13:09 Family History Other Cancer Diabetes Heart disease Hypertension Surgical History History of lobectomy of thyroid Social History household members: spouse housing: house Smoking Status: Never smoker ROS Constitutional Constitutional: Reports chills and fever(s); Denies fatigue or weakness Eyes Eyes: Denies change in vision Cardiovascular Cardiovascular: Denies chest pain Respiratory/Chest Respiratory/Chest: Denies cough or shortness of breath at rest Gastrointestinal Gastrointestinal: Reports abdominal pain, nausea and vomiting; Denies constipation or diarrhea Musculoskeletal Musculoskeletal: Reports back pain; Denies arthralgias or myalgias Vital Signs Vital Signs Vital Signs: 08/29/24 13:45 08/29/24 15:31 Temperature 102.4 F H Temperature Source Temporal Pulse Rate 138 H Respiratory Rate 17 Respiratory Effort Normal Non-Labored Respiratory Pattern Normal Blood Pressure 160/93 H Blood Pressure Mean 115 Pulse Ox 100 Oxygen Delivery Method Room Air Weight Weight: 91.626 kg Body Mass Index (BMI) 36.9 Physical Exam Const alert, oriented x3 and no apparent distress Constitutional Narrative: Middle-age female, class II obesity, mildly fatigued appearing but otherwise laying back comfortably in bed, conversing normally, in no acute distress. General Appearance: cooperative and comfortable HEENT normocephalic, head/scalp atraumatic, hearing grossly normal bilaterally, nasal mucous membranes and turbinates normal and moist oral mucous membranes Eyes PERRL, EOMs intact bilaterally and conjunctivae normal Neck full ROM Chest inspection of chest normal Resp normal respiratory effort, normal air movement, no use of accessory muscles and clear to auscultation bilaterally Cardio regular rate, regular rhythm, no murmurs and peripheral pulses 2+ throughout GI GI Narrative: Mild tenderness to palpation in epigastric to right upper quadrant areas. Abdomen otherwise soft and nondistended on palpation. Back/Spine normal ROM Extremity normal to inspection, full ROM and no pedal edema Skin no rashes or lesions noted Neuro moves all extremities and no focal motor deficits Speech: speech normal Motor Exam: strength 5/5 throughout Psych mental status grossly normal Results Lab / Micro Data 08/29/24 15:11 08/29/24 15:11 Labs: Laboratory Results - last 24 hr 08/29/24 15:11: WBC 13.5 H, RBC 5.33, Hgb 14.6, Hct 44.1, MCV 82.7, MCH 27.4, MCHC 33.1, RDW Std Deviation 38.4, RDW Coeff of Fabio 12.8, Plt Count 202, MPV 10.7, Immature Gran % (Auto) 0.600, Neut % (Auto) 93.9 H, Lymph % (Auto) 2.0 L, Stanley % (Auto) 3.3, Eos % (Auto) 0.0, Baso % (Auto) 0.2, Absolute Neuts (auto) 12.6 H, Absolute Lymphs (auto) 0.27 L, Nucleated RBC % 0, PT 13.5, INR 1.0, APTT27.9, Sodium 134, Potassium 3.9, Chloride 99, Carbon Dioxide 20.2 L, Anion Gap 14, BUN 8, Creatinine 0.74, Estim Creat Clear Calc 95.78, Est GFR (MDRD) Non-Af 99, BUN/Creatinine Ratio 10.3, Glucose 175 H, Lactic Acid 1.6, Calcium 9.0, Total Bilirubin 4.42 H, Direct Bilirubin 2.99 H, AST 250 H, ALT 628 H, Alkaline Phosphatase 266 H, Total Protein 7.4, Albumin 4.3, Globulin 3.2, Lipase 13 08/29/24 16:26: Urine Color Straw, Urine Clarity Clear, Urine pH 6.0, Ur Specific Goltry 1.010, Urine Protein 30 H, Urine Glucose (UA) Normal, Urine Ketones 50 H, Urine Occult Blood 25 H, Urine Nitrite Positive H, Urine Bilirubin6 H, Urine Urobilinogen 8 H, Ur Leukocyte Esterase 25 H Micro: Microbiology 08/29/24 13:50 Mucosa - Nose SARS-CoV-2, Influenza & RSV (PCR) - Final RSV Imaging Radiology Impression Abdomen/Pelvis CT 08/29/24 15:09 IMPRESSION: Gallstones. Possible gallstone in the neck of the gallbladder. Mild degree of central intrahepatic biliary ductal dilatation. Correlation withultrasound recommended for further evaluation. Fatty infiltration of the liver. One or more dose reduction techniques were used (e.g., Automated exposure control, adjustment of the mA and/or kV according to patient size, use of iterative reconstruction technique). Reading Location: [id number] Chest X-Ray 08/29/24 16:00 IMPRESSION: No acute abnormality is seen. Reading Location: [facility] Gallbladder Ultrasound 08/29/24 16:08 IMPRESSION: 1. Distended gallbladder with cholelithiasis. No pericholecystic fluid or significant wall thickening. Mildly dilated common bile duct measuring 8 mm. Consider MRCP for further assessment if indicated. 2. Hepatic steatosis. 3. Nonspecific hypoechoic lesion in the right hepatic lobe, not a simple cyst. Recommend further evaluation with nonemergent contrast-enhanced MRI. Reading Location: [facility] Assessment & Plan Assessment/Plan (1) Ascending cholangitis: (2) Obstructive jaundice: PLAN: Plan Patient is a 48-year-old female who presented [facility] ED on 08/29/2024 with abdominal pain with nausea, fever/chills and URI symptoms. 1. Choledocholithiasis with concern for acute cholangitis ? Admit under inpatient status to PCU. GI and general surgery consulted. CT abdomen pelvis and gallbladder ultrasound on admit showed distended gallbladder with multiple calculi and dilated common bile duct. LFTs with T. bili 4.4, direct bili 2.9, AST 250, ALT 628, alk phos 266. Fevers present on admission. No hypotension or altered mentation noted. Per GI, planning for ERCP this evening, will maintain n.p.o. status for now. Per general surgery, planning forcholecystectomy at some point during this hospitalization. Will treat with IV Levaquin and Flagyl. Given 2 L of IV fluids in the ED. Oxycodone as needed andIV morphine as needed for pain control. Monitor closely. 2. RSV infection ? Patient tested positive for RSV on admit. Mild URI symptoms noted. Chest x-ray unremarkable. Treated with symptomatic management. Contact precautions in place. 3. Hypothyroidism ? TSH low but free T4 normal on admit. Continue home Synthroid. Outpatient follow-up for dose adjustments as needed. 4. Type 2 diabetes mellitus ? On home metformin 500 mg daily. Will treat with sliding scale insulin with meals while inpatient. 5. Class II obesity ? BMI 36 on admit. Complicates hospital course, care and prognosis. DVT prophylaxis: Lovenox CODE STATUS: Full code, verified Expected disposition: Home, TBD Total clinical time spent by myself addressing the patient's medical issues, reviewing all the data, and collaborating with patient's care team: 75 minutes. Charges/Coding Visit Charges Inpatient E&M: 82447 Init Hosp L3 08/29/242051 <Electronically signed by Spencer La DO> Cosigner Signature (if applicable): CC: Dr. Spencer La DO; Dr. Milton Cody MD~ Signed [facility] Work Phone: 1(703) 807-265203-07-2025 History and physical note Author Paolo Waller [facility] Note Date/Time August 29, 2024 5:40 pm [facility] System Medical Records Department [address] [place] [address] History & Physical Exam 08/29/24 1832 MR#: [id number] Acct: [id number] Name: GALILEA GLASS Rep #:[id number] : 1975 48 From: Paolo Waller DO PCP: Dr. Milton Cody MD Status:REG S DC Location: [id number]- 1 HPI - General General Date of Admission: 08/29/24 Date of Service: 08/29/24 Chief Complaint: Ascending cholangitis HPI Narrative GALILEA GLASS is a 48 F who presents with fever, chills, epigastric, right lower quadrant pain and back pain. She was sent here after seeing PCP office. Patient reports beginning of illness 2 weeks ago grandson diagnosed RSV. She has had sinus congestion. Symptoms of upper respiratory were started to improve. This past day increased severe pain across her upper abdomen. Nausea when she eats. No vomiting no diarrhea no urinary symptoms however states recent urines a lot more dark in color she is taking less p.o. intake. Seeing her doctor today states had a fever tachycardic. Started having a cough. She still has upper abdominal pain that goes to her back. Denies alcohol history. Denies any abdominal surgeries. Father had pancreatic cancer. Allergies to chlorhexidine and penicillin. In the emergency room she was febrile to 103.4. Heart rate ranges from 120-140 and blood pressure has been ranging from 1 40-1 60 systolic /80s to 90s diastolic. 08/29/24 15:11: WBC 13.5 H, RBC 5.33, Hgb 14.6, Hct 44.1, MCV 82.7, MCH 27.4, MCHC 33.1, RDW Std Deviation 38.4, RDW Coeff of Fabio 12.8, Plt Count 202, MPV 10.7, Immature Gran % (Auto) 0.600, Neut % (Auto) 93.9 H, Lymph % (Auto) 2.0 L, Stanley % (Auto) 3.3, Eos % (Auto) 0.0, Baso % (Auto) 0.2, Absolute Neuts (auto) 12.6 H, Absolute Lymphs (auto) 0.27 L, Nucleated RBC % 0, PT 13.5, INR 1.0, APTT27.9, Sodium 134, Potassium 3.9, Chloride 99, Carbon Dioxide 20.2 L, Anion Gap 14, BUN 8, Creatinine 0.74, Estim Creat Clear Calc 95.78, Est GFR (MDRD) Non-Af 99, BUN/Creatinine Ratio 10.3, Glucose 175 H, Lactic Acid 1.6, Calcium 9.0, Total Bilirubin 4.42 H, Direct Bilirubin 2.99 H, AST 250 H, ALT 628 H, Alkaline Phosphatase 266 H, Total Protein 7.4, Albumin 4.3, Globulin 3.2, Lipase 13 08/29/24 16:26: Urine Color Straw, Urine Clarity Clear, Urine pH 6.0, Ur Specific Goltry 1.010, Urine Protein 30 H, Urine Glucose (UA) Normal, Urine Ketones 50 H, Urine Occult Blood 25 H, Urine Nitrite Positive H, Urine Bilirubin6 H, Urine Urobilinogen 8 H, Ur Leukocyte Esterase 25 H, Urine RBC 0-5 SEEN, Urine WBC 5-10 SEEN, Ur Squamous Epith Cells 0-5 SEEN, Urine Bacteria 1+, Urine Mucus RARE, Urine Test Negative CT/Abdomen/Pelvis W IV Cont ONLY IMPRESSION: Gallstones. Possible gallstone in the neck of the gallbladder. Mild degree of central intrahepatic biliary ductal dilatation. Correlation withultrasound recommended for further evaluation. Fatty infiltration of the liver. US/Gallbladder IMPRESSION: 1. Distended gallbladder with cholelithiasis. No pericholecystic fluid or significant wall thickening. Mildly dilated common bile duct measuring 8 mm. Consider MRCP for further assessment if indicated. 2. Hepatic steatosis. 3. Nonspecific hypoechoic lesion in the right hepatic lobe, not a simple cyst. Recommend further evaluation with nonemergent contrast-enhanced MRI. [facility] Medical History (Updated 08/29/24 @ 18:[address] Paolo Waller, DO) PCOS (polycystic ovarian syndrome) Migraine headache Home Medications ?Medication ?Instructions ?Recorded ?Last Taken ?Type thyroid (pork) 60 mg tablet 60 mg PO DAILY 08/23/20 History ([facility] Thyroid) cholecalciferol (vitamin D3) 1 tab PO DAILY 08/29/24 U nknown History levothyroxine 25 mcg tablet 25 mcg PO SUTUWETHSA 08/2908/29/24 History magnesium citrate 125 mg capsule 250 mg PO QHS 5 Unknown History metformin 500 mg tablet 500 mg PO DAILY 08/29/24 Unk nown History Allergy/AdvReac Type Severity Reaction Status Date / Time Penicillins Allergy Intermediate Hives Verified 08/30/20 13:09 chlorhexidine Allergy Mild Rash Verified 08/30/20 13:09 Family History Other Cancer Diabetes Heart disease Hypertension Surgical History History of lobectomy of thyroid Social History household members: spouse housing: house Smoking Status: Never smoker ROS Constitutional Constitutional: Denies fatigue, fever(s), poor appetite, weight gain or weight loss Gastrointestinal Gastrointestinal: Denies belching, bloating, change in bowel habits, change in stool character, chewing difficulty, coffee ground emesis, constipation, cramping, diarrhea, dyspepsia, dysphagia, early satiety, excessive flatus, fecalincontinence, heartburn, hematemesis, hematochezia, hemorrhoids, loose stools, melena, nausea, odynophagia, rectal bleeding, tenesmus, vomiting or weight changes Vital Signs Vital Signs Vital Signs: 08/29/24 13:45 08/29/24 15:31 08/29/24 17:44 Temperature 102.4 F H Temperature Source Temporal Pulse Rate 138 H 100 Respiratory Rate 17 Respiratory Effort Normal Non-Labored Respiratory Pattern Normal Blood Pressure 160/93 H 118/79 Blood Pressure Mean 115 92 Pulse Ox 100 94 Oxygen Delivery Method Room Air Weight Weight: 202 lb Body Mass Index (BMI) 36.9 Physical Exam Const alert, oriented x3, no apparent distress and healthy appearing General Appearance: cooperative GI normal to inspection, nondistended, normoactive bowel sounds, soft to palpation,non-tender and non-distended Percussion: normal to percussion Rectal Exam: deferred Results Lab / Micro Data 08/29/24 15:11 08/29/24 15:11 Labs: Laboratory Results - last 24 hr 08/29/24 15:11: WBC 13.5 H, RBC 5.33, Hgb 14.6, Hct 44.1, MCV 82.7, MCH 27.4, MCHC 33.1, RDW Std Deviation 38.4, RDW Coeff of Fabio 12.8, Plt Count 202, MPV 10.7, Immature Gran % (Auto) 0.600, Neut % (Auto) 93.9 H, Lymph % (Auto) 2.0 L, Stanley % (Auto) 3.3, Eos % (Auto) 0.0, Baso % (Auto) 0.2, Absolute Neuts (auto) 12.6 H, Absolute Lymphs (auto) 0.27 L, Nucleated RBC % 0, PT 13.5, INR 1.0, APTT27.9, Sodium 134, Potassium 3.9, Chloride 99, Carbon Dioxide 20.2 L, Anion Gap 14, BUN 8, Creatinine 0.74, Estim Creat Clear Calc 95.78, Est GFR (MDRD) Non-Af 99, BUN/Creatinine Ratio 10.3, Glucose 175 H, Lactic Acid 1.6, Calcium 9.0, Total Bilirubin 4.42 H, Direct Bilirubin 2.99 H, AST 250 H, ALT 628 H, Alkaline Phosphatase 266 H, Total Protein 7.4, Albumin 4.3, Globulin 3.2, Lipase 13 08/29/24 16:26: Urine Color Straw, Urine Clarity Clear, Urine pH 6.0, Ur Specific Goltry 1.010, Urine Protein 30 H, Urine Glucose (UA) Normal, Urine Ketones 50 H, Urine Occult Blood 25 H, Urine Nitrite Positive H, Urine Bilirubin6 H, Urine Urobilinogen 8 H, Ur Leukocyte Esterase 25 H, Urine RBC 0-5 SEEN, Urine WBC 5-10 SEEN, Ur Squamous Epith Cells 0-5 SEEN, Urine Bacteria 1+, Urine Mucus RARE, Urine Test Negative Micro: Microbiology 08/29/24 13:50 Mucosa - Nose SARS-CoV-2, Influenza & RSV (PCR) - Final RSV Imaging Radiology Impression Abdomen/Pelvis CT 08/29/24 15:09 IMPRESSION: Gallstones. Possible gallstone in the neck of the gallbladder. Mild degree of central intrahepatic biliary ductal dilatation. Correlation withultrasound recommended for further evaluation. Fatty infiltration of the liver. One or more dose reduction techniques were used (e.g., Automated exposure control, adjustment of the mA and/or kV according to patient size, use of iterative reconstruction technique). Reading Location: [id number] Chest X-Ray 08/29/24 16:00 IMPRESSION: No acute abnormality is seen. Reading Location: [id number] Gallbladder Ultrasound 08/29/24 16:08 IMPRESSION: 1. Distended gallbladder with cholelithiasis. No pericholecystic fluid or significant wall thickening. Mildly dilated common bile duct measuring 8 mm. Consider MRCP for further assessment if indicated. 2. Hepatic steatosis. 3. Nonspecific hypoechoic lesion in the right hepatic lobe, not a simple cyst. Recommend further evaluation with nonemergent contrast-enhanced MRI. Reading Location: [facility] Assessment & Plan Assessment/Plan (1) Ascending cholangitis: (2) Hepatic lesion: (3) Obstructive jaundice: PLAN: 48-year-old close significant past medical history arrives to the near with abdominal pain and darkening urine. She was discovered to have jaundiced acholestatic hepatitis and with imaging displaying dilated common bile duct on CTscan and ultrasound along with intrahepatic ductal dilation. There is a high suspicion for ascending cholangitis secondary to choledocholithiasis. Recommend emergent ERCP. She was explained alternatives, risk, benefits including not withstanding bleeding, infection, sepsis, perforation, need for emergent surgery and . She was also explained the risk of post ERCP pancreatitis. She will have an ASA 3. Charges/Coding Visit Charges Inpatient E&M: 61804 Init Hosp L3 08/29/24 1840 <Electronically signed by Paolo Waller DO> Cosigner Signature (if applicable): CC: Dr. Milton Cody MD; Paolo Waller DO~ Signed [facility] Work Phone: [phone]) 273-817003-07-2025 Consult note [facility] Medical Records Department [address] [place] [address] Consultation - Surgical 08/29/241924 MR#: [id number] Acct: [id number] Name: GALILEA GLASS Rep #:[id number] : 1975 48 From: Deacon Duckworth PCP: Dr. Milton Cody MD Status:ADM I N Location: [place] [address]- Assessment & Plan Assessment/Plan (1) Obstructive jaundice: PLAN: Patient is 48-year-old female with apparent cholangitis and obstructive jaundice?likely owingto a underlying diagnosis of choledocholithiasis. Patientis pending ERCP with gastroenterology. Will await findings of this study as well as patient's clinical response to this intervention. I did discuss with patient that I would plan for same?admission laparoscopic cholecystectomy with intraoperative cholangiography to mitigate her risk for further issues from gallstones. Procedure was described in detail. I suggested that we follow-up tomorrow and be sure she responds appropriately. In the event that patient is clinically ready for surgery would recommend keeping her n.p.o. past midnight. Deacon Burgos MD General Surgery Endocrine Surgery Pager: [facility] [address] [place] [address], [facility], [address] [place] [address] Office: [phone] HPI Consult Data Date of Consult: 08/29/24 HPI Narrative Reason for Consultation: Choledocholithiasis with cholangitis HPI Narrative: GALILEA GLASS, is a 48 F who presents to [facility] emergency department on direction from her PCP office after presenting there for a myriad of symptoms. She notes recently her grandchild was diagnosed with RSV and she suspected that she had fallen ill with this condition but was never formally tested. She then reports on 08/27/2024 she awoken with a sharp pain in her stomach. She states the pain was so intense that had her doubled over and she felt sweaty but when checking her temperature she found she was afebrile. She notes taking some antacids to try to improve the pain butshe generally had a poor appetite. She was not seen that day but reports feeling rundown yesterday with somewhat less abdominal pain. She reports she did have some darker colored urine but this wasattributed to a relative dehydrated status. She then woke this morning with severe back pain which she attributed to vigorous coughing. With this back pain and some associated chills she sought a sick visit with her PCP where she saw a nurse practitioner who commented they felt that she had some flu id buildup in her ears and recommended overall conservative treatment but expressed concern about her returning home. Patient's evaluation in the ER included biochemical evaluation with laboratoriesincluding CMP that showed transaminitis and hyperbilirubinemia with a T. bili of4.42. CBC demonstrated leukocytosis with left shift. Initially CT imaging of the abdomen pelvis was obtained that showed gallbladder with some gallstones (1 possibly located in the neck) but more prominently there was a dilated common bileduct and some evidence of diffuse fatty liver infiltration. Given patient's laboratories and the finding of a dilated common bile duct ultrasound was performed reflexively. Once again this showed a distended gallbladder with cholelithiasis but, notably, radiology stated there is no evidence of wallthickening or pericholecystic fluid. They did note the patient's common bile duct measured 8 mm in diameter. With these findings surgery is asked to evaluate patient for possible cholecystectomy. Emergency medicine noted that they had previously contacted gastroenterology and ERCP was pending for today. Patient past medical history notable for some hypothyroidism and PCOS. Surgically?speaking patient has a history of thyroid lobectomy and more remotelya history of several sections [facility] Medical History PCOS (polycystic ovarian syndrome) Migraine headache Home Medications ?Medication ?Instructions ?Recorded ?Last Taken ?Type thyroid (pork) 60 mg tablet 60 mg PO DAILY 08/23/20 History ([place] Thyroid) cholecalciferol (vitamin D3) 1 tab PO DAILY 08/29/24 U nknown History levothyroxine 25 mcg tablet 25 mcg PO SUTUWETHSA 08/2908/29/24 History magnesium citrate 125 mg capsule 250 mg PO QHS 5 Unknown History metformin 500 mg tablet 500 mg PO DAILY 08/29/24 Unk nown History Allergy/AdvReac Type Severity Reaction Status Date / Time Penicillins Allergy Intermediate Hives Verified 08/30/20 13:09 chlorhexidine Allergy Mild Rash Verified 08/30/20 13:09 Family History Other Cancer Diabetes Heart disease Hypertension Surgical History History of lobectomy of thyroid Social History household members: spouse housing: house Smoking Status: Never smoker Physical Exam Const alert Constitutional Narrative: Mildly distressed from abdominal discomfort, visibly jaundiced Nutritional Appearance: obese Resp normal respiratory effort GI GI Narrative: Obese, no visible scars to the upper abdomen, nondistended, soft, mildly tender across the epigastrium. Negative Lamar sign. Lab / Micro Data 08/29/24 15:11 08/29/24 15:11 Labs: Laboratory Results - last 24 hr 08/29/24 15:11: WBC 13.5 H, RBC 5.33, Hgb 14.6, Hct 44.1, MCV 82.7, MCH 27.4, MCHC 33.1, RDW Std Deviation 38.4, RDW Coeff of Fabio 12.8, Plt Count 202, MPV 10.7, Immature Gran % (Auto) 0.600, Neut % (Auto) 93.9 H, Lymph % (Auto) 2.0 L, Stanley % (Auto) 3.3, Eos % (Auto) 0.0, Baso % (Auto) 0.2, AbsoluteNeuts (auto) 12.6 H, Absolute Lymphs (auto) 0.27 L, Nucleated RBC % 0, PT 13.5, INR 1.0, APTT27.9, Sodium 134, Potassium 3.9, Chloride 99, Carbon Dioxide 20.2 L, Anion Gap 14, BUN 8, Creatinine 0.74,Estim Creat Clear Calc 95.78, Est GFR (MDRD) Non- Af 99, BUN/Creatinine Ratio 10.3, Glucose 175 H, Lactic Acid 1.6, Calcium 9.0, Total Bilirubin 4.42 H, Direct Bilirubin 2.99 H, AST 250 H, ALT 628 H, Alkaline Phosphatase 266 H, Total Protein 7.4, Albumin 4.3, Globulin 3.2, Lipase 13 08/29/24 16:26: Urine Color Straw, Urine Clarity Clear, Urine pH 6.0, Ur Specific Goltry 1.010, Urine Protein 30 H, Urine Glucose (UA) Normal, Urine Ketones 50 H, Urine Occult Blood 25 H, Urine Nitrite Positive H, Urine Bilirubin6 H, Urine Urobilinogen 8 H, Ur Leukocyte Esterase 25 H, Urine RBC 0-5 SEEN, Urine WBC 5-10 SEEN, Ur Squamous Epith Cells 0-5 SEEN, Urine Bacteria 1+, Urine Mucus RARE, Urine Test Negative Micro: Microbiology 08/29/24 13:50 Mucosa - Nose SARS-CoV-2, Influenza & RSV (PCR) - Final RSV Imaging Radiology Impression Abdomen/Pelvis CT 08/29/24 15:09 IMPRESSION: Gallstones. Possible gallstone in the neck of the gallbladder. Mild degree of central intrahepatic biliary ductal dilatation. Correlation withultrasound recommended for further evaluation. Fatty infiltration of the liver. One or more dose reduction techniques were used (e.g., Automated exposure control, adjustment of the mA and/or kV according to patient size, use of iterative reconstruction technique). Reading Location: [id number] Chest X-Ray 08/29/24 16:00 IMPRESSION: No acute abnormality is seen. Reading Location: [id number] Gallbladder Ultrasound 08/29/24 16:08 IMPRESSION: 1. Distended gallbladder with cholelithiasis. No pericholecystic fluid or significant wall thickening. Mildly dilated common bile duct measuring 8 mm. Consider MRCP for further assessment if indicated. 2. Hepatic steatosis. 3. Nonspecific hypoechoic lesion in the right hepatic lobe, not a simple cyst. Recommend further evaluation with nonemergent contrast-enhanced MRI. Reading Location: [facility] Charges/Coding Visit Charges Inpatient E&M: 90566 Init Hosp L2 08/29/24 1934 Cosigner Signature (if applicable): CC: Dr. Milton Cody MD; Paolo Friend, DO~ Signed [facility]03-07-2025 Consult note [facility] Medical Records Department [address] [place] [address] Pre-Anesthesia Evaluation 08/29/24 1851 MR#: [id number] Acct: [id number] Name: GALILEA GLASS Rep #:[id number] : 1975 48 From: Ruy Gallagher MD PCP: Dr. Milton Cody MD Status:ADM I N Y Race: C Location: [place] [address] 4 ASA Classification* ASA Classification ASA Classification: 2 and E Assessment & Plan Anesthesia* Anesthesia Assessment Anesthesia Assessment: Discussed sedation and/or anesthesia options, risks, benefits, and alternatives with patient/parents/legal guardian/POA. Questions invited. The patient/parents/legal guardian/POA seems to understand and agrees to proceedwith anesthesia plan. Reviewed the physical assessment, medical history, allergy history and patient home medications list prior to surgery/procedure/anesthetic and documented any changes. Performed airway and anesthesia risk assessments. Anesthesia Type Anesthesia Type: General Anesthesia Focused Assessment* Temperature: 98.7 F Pulse Rate: 106 Blood Pressure: 111/78 Respiratory Rate: 16 Pulse Ox: 94 Airway Assessment Mouth opens: >3 cm Mallampati Score: II Focused Labs Anesthesia Preop lab: CBC WBC 13.5 K/mm3 (4.4-11.0) H 08/29/24 15:11 5 RBC 5.33 M/mm3 (4.2-5.4) 08/29/24 15:11 08/29/24 Hgb 14.6 g/dL (12.0-15.0) 08/29/24 15:11 08/29/24 Hct 44.1 % (37-47) 08/29/24 15:11 08/29/24 Plt Count 202 K/mm3 (150-450) 08/29/24 15:11 08/29/24 CHEMISTRY Potassium 3.9 mmol/L (3.3-5.1) 08/29/24 15:11 08/29/24 Sodium 134 mmol/L (133-145) 08/29/24 15:11 08/29/24 BUN 8 mg/dL (4-19) 08/29/24 15:11 08/29/24 Creatinine 0.74 mg/dL (0.70-1.20) 08/29/24 15:11 08/29/24 Glucose 175 mg/dL (70-99) H 08/29/24 15:11 08/29/24 TSH 0.14 uIU/mL (0.358-3.74) L 09/01/19 12:06 0303/14 COAG PT 13.5 SECONDS (11.7-14.9) 08/29/24 15:11 Urine Test Negative Negative 08/29/24 16:26 08/29/24 Pre-Assessment Diagnosis/Proposed Procedure Planned Operative Procedure(s): ERCP Anesthesia History Anesthesia History - piece cutter: Anesthesia History - piece cutter Hx Hospitalization Any Problems With Anesthesia No 08/29/24 18:21 Cholinesterase deficiency No 08/29/24 18:21 You/Your Family Experience No 08/29/24 18:21 fever (hyperthermia) with Relationship Recent Exposure to Contagious No 08/29/24 18:21 Disease Does patient have nerve No 08/29/24 18:21 stimulator Patient instructed to have device shut off --Does patient have Pacemaker No 08/29/24 18:21 or ICD? When Was Last Pacemaker Check QUESTION #4 FULL TEXT: You/Your Family Experience fever (hyperthermia) with Anesthesia Last Oral Intake Last Oral intake: Last Oral Intake NPO since 14:30 08/29/24 18:21 Meds taken in AM with sips of water? Meds patient instructed to take am of surgery PONV PONV - piece cutter: PONV - piece cutter Female HX of Motion Sickness HX of N/V After Surgery Non-Smoker Duration of Surgery greater than 60 minutes Number of Risk Factors PONV Score Height & Weight Height & Weight: Anesthesia: Height & Weight Height 5 ft 2 in 08/29/24 18:21 Weight: 91.626 kg 08/29/24 18:21 Body Mass Index (BMI) 36.9 08/29/24 18:21 Respiratory Assessment Respiratory Assessment - piece cutter: Respiratory Tract Infection Hx - piece cutter Hx Respiratory Tract Infection Yes 08/29/24 18:21 STOP Sleep Apnea STOP Sleep Apnea - piece cutter: STOP Sleep Apnea - piece cutter Hx Hypertension No 08/29/24 18:21 Hx Sleep Apnea No 08/29/24 18:21 CPAP BIPAP Do you snore loudly (louder No 08/29/24 18:21 than talking or can be heard Do you often feel tired/ No 08/29/24 18:21 fatigued/ sleepy during daytime? Has anyone observed you stop No 08/29/24 18:21 breathing during sleep? STOP Results Negative 08/29/24 18:21 QUESTION #5 FULL TEXT : Do you snore loudly (louder than talking or can be heard through closeddoors)? Tobacco Use History Tobacco Use History - piece cutter: Tobacco Use History - piece cutter Tobacco Use Smoking Status Never smoker 08/29/24 15:31 Hx Tobacco Use Years Smoking Packs Smoked per Day Smoking Cessation Date was within the last 15 years Hx Smoking Cessation Date Hx Smoking Cessation Counseling Hematologic Medial History Hematologic Hx - piece cutter: Hematologic Medical Hx - lifestyle consultant Hx of Blood Transfusion Hx of Transfusion in last 3 Months Date of Last Transfusion (if within last 3 months) Ever experience any problems with transfusion(s)? Specify any problems Hx of Preganancy in last 3 Months Nurse Filling Out Transfusion & Questions: Date: Time: Patient unable to answer at this time (ie. confused, unrespo /Reproduction History /Reproductive History - piece cutter: /Reproductive Hx- piece cutter Hx Now No 08/29/24 18:21 Gestational Age (in weeks): EDC: Hx Hx Para Hx Section SAB No 08/29/24 18:21 [facility] Medical History PCOS (polycystic ovarian syndrome) Migraine headache Home Medications ?Medication ?Instructions ?Recorded ?Last Taken ?Type thyroid (pork) 60 mg tablet 60 mg PO DAILY 08/23/20 History ([place] Thyroid) cholecalciferol (vitamin D3) 1 tab PO DAILY 08/29/24 U nknown History levothyroxine 25 mcg tablet 25 mcg PO SUTUWETHSA 08/2908/29/24 History magnesium citrate 125 mg capsule 250 mg PO QHS 5 Unknown History metformin 500 mg tablet 500 mg PO DAILY 08/29/24 Unk nown History Allergy/AdvReac Type Severity Reaction Status Date / Time Penicillins Allergy Intermediate Hives Verified 08/30/20 13:09 chlorhexidine Allergy Mild Rash Verified 08/30/20 13:09 Family History Other Cancer Diabetes Heart disease Hypertension Surgical History History of lobectomy of thyroid Social History household members: spouse housing: house Smoking Status: Never smoker Review of Systems (Anesthesia) ROS Narrative System reviewed and no additional complaints, except as documented. 08/29/24 1918 > Date _ Ruy Gallagher MD Cosigner Signature: Date CC: ~ Signed [facility]03-07-2025 History and physical note [facility] Medical Records Department [address] [place] [address] History & Physical Exam 08/29/24 1832 MR#: [id number] Acct: [id number] Name: GALILEA GLASS Rep #:[id number] : 1975 48 From: Paolo Friend DO PCP: Dr. Milton Cody MD Status:REG S DC Location: [facility] [id number] HPI - General General Date of Admission: 08/29/24 Date of Service: 08/29/24 Chief Complaint: Ascending cholangitis HPI Narrative GALILEA GLASS, is a 48 F who presents with fever, chills, epigastric, right lower quadrant pain andback pain. She was sent here after seeing PCP office. Patient reports beginning of illness 2 weeks ago grandson diagnosed RSV. She has had sinus congestion. Symptoms of upper respiratory were startedto improve. This past Sunday increased severe pain across her upper abdomen. Nausea when she eats. No vomiting no diarrhea no urinary symptoms however states recent urines a lot more dark in colorshe is taking less p.o. intake. Seeing her doctor today states had a fever tachycardic. Started having a cough. She still has upper abdominal pain that goes to her back. Denies alcohol history. Denies any abdominal surgeries. Father had pancreatic cancer. Allergies to chlorhexidine and penicillin. In the emergency room she was febrile to 103.4. Heart rate ranges from 120-140 and blood pressure has been ranging from 1 40-1 60 systolic /80s to 90s diastolic. 08/29/24 15:11: WBC 13.5 H, RBC 5.33, Hgb 14.6, Hct 44.1, MCV 82.7, MCH 27.4, MCHC 33.1, RDW Std Deviation 38.4, RDW Coeff of Fabio 12.8, Plt Count 202, MPV 10.7, Immature Gran % (Auto) 0.600, Neut % (Auto) 93.9 H, Lymph % (Auto) 2.0 L, Stanley % (Auto) 3.3, Eos % (Auto) 0.0, Baso % (Auto) 0.2, AbsoluteNeuts (auto) 12.6 H, Absolute Lymphs (auto) 0.27 L, Nucleated RBC % 0, PT 13.5, INR 1.0, APTT27.9, Sodium 134, Potassium 3.9, Chloride 99, Carbon Dioxide 20.2 L, Anion Gap 14, BUN 8, Creatinine 0.74,Estim Creat Clear Calc 95.78, Est GFR (MDRD) Non- Af 99, BUN/Creatinine Ratio 10.3, Glucose 175 H, Lactic Acid 1.6, Calcium 9.0, Total Bilirubin 4.42 H, Direct Bilirubin 2.99 H, AST 250 H, ALT 628 H, Alkaline Phosphatase 266 H, Total Protein 7.4, Albumin 4.3, Globulin 3.2, Lipase 13 08/29/24 16:26: Urine Color Straw, Urine Clarity Clear, Urine pH 6.0, Ur Specific Goltry 1.010, Urine Protein 30 H, Urine Glucose (UA) Normal, Urine Ketones 50 H, Urine Occult Blood 25 H, Urine Nitrite Positive H, Urine Bilirubin6 H, Urine Urobilinogen 8 H, Ur Leukocyte Esterase 25 H, Urine RBC 0-5 SEEN, Urine WBC 5-10 SEEN, Ur Squamous Epith Cells 0-5 SEEN, Urine Bacteria 1+, Urine Mucus RARE, Urine Test Negative CT/Abdomen/Pelvis W IV Cont ONLY IMPRESSION: Gallstones. Possible gallstone in the neck of the gallbladder. Mild degree of central intrahepatic biliary ductal dilatation. Correlation withultrasound recommended for further evaluation. Fatty infiltration of the liver. US/Gallbladder IMPRESSION: 1. Distended gallbladder with cholelithiasis. No pericholecystic fluid or significant wall thickening. Mildly dilated common bile duct measuring 8 mm. Consider MRCP for further assessment if indicated. 2. Hepatic steatosis. 3. Nonspecific hypoechoic lesion in the right hepatic lobe, not a simple cyst. Recommend further evaluation with nonemergent contrast-enhanced MRI. [facility] Medical History (Updated 08/29/24 @ 18:[address] Boone Friend, DO) PCOS (polycystic ovarian syndrome) Migraine headache Home Medications ?Medication ?Instructions ?Recorded ?Last Taken ?Type thyroid (pork) 60 mg tablet 60 mg PO DAILY 08/23/20 History ([place] Thyroid) cholecalciferol (vitamin D3) 1 tab PO DAILY 08/29/24 U nknown History levothyroxine 25 mcg tablet 25 mcg PO SUTUWETHSA 08/2908/29/24 History magnesium citrate 125 mg capsule 250 mg PO QHS 5 Unknown History metformin 500 mg tablet 500 mg PO DAILY 08/29/24 Unk nown History Allergy/AdvReac Type Severity Reaction Status Date / Time Penicillins Allergy Intermediate Hives Verified 08/30/20 13:09 chlorhexidine Allergy Mild Rash Verified 08/30/20 13:09 Family History Other Cancer Diabetes Heart disease Hypertension Surgical History History of lobectomy of thyroid Social History household members: spouse housing: house Smoking Status: Never smoker ROS Constitutional Constitutional: Denies fatigue, fever(s), poor appetite, weight gain or weight loss Gastrointestinal Gastrointestinal: Denies belching, bloating, change in bowel habits, change in stool character, chewing difficulty, coffee ground emesis, constipation, cramping, diarrhea, dyspepsia, dysphagia, earlysatiety, excessive flatus, fecalincontinence, heartburn, hematemesis, hematochezia, hemorrhoids, loose stools, melena, nausea, odynophagia, rectal bleeding, tenesmus, vomiting or weight changes Vital Signs Vital Signs Vital Signs: 08/29/24 13:45 08/29/24 15:31 08/29/24 17:44 Temperature 102.4 F H Temperature Source Temporal Pulse Rate 138 H 100 Respiratory Rate 17 Respiratory Effort Normal Non-Labored Respiratory Pattern Normal Blood Pressure 160/93 H 118/79 Blood Pressure Mean 115 92 Pulse Ox 100 94 Oxygen Delivery Method Room Air Weight Weight: 202 lb Body Mass Index (BMI) 36.9 Physical Exam Const alert, oriented x3, no apparent distress and healthy appearing General Appearance: cooperative GI normal to inspection, nondistended, normoactive bowel sounds, soft to palpation,non-tender and non-distended Percussion: normal to percussion Rectal Exam: deferred Results Lab / Micro Data 08/29/24 15:11 08/29/24 15:11 Labs: Laboratory Results - last 24 hr 08/29/24 15:11: WBC 13.5 H, RBC 5.33, Hgb 14.6, Hct 44.1, MCV 82.7, MCH 27.4, MCHC 33.1, RDW Std Deviation 38.4, RDW Coeff of Fabio 12.8, Plt Count 202, MPV 10.7, Immature Gran % (Auto) 0.600, Neut % (Auto) 93.9 H, Lymph % (Auto) 2.0 L, Stanley % (Auto) 3.3, Eos % (Auto) 0.0, Baso % (Auto) 0.2, AbsoluteNeuts (auto) 12.6 H, Absolute Lymphs (auto) 0.27 L, Nucleated RBC % 0, PT 13.5, INR 1.0, APTT27.9, Sodium 134, Potassium 3.9, Chloride 99, Carbon Dioxide 20.2 L, Anion Gap 14, BUN 8, Creatinine 0.74,Estim Creat Clear Calc 95.78, Est GFR (MDRD) Non- Af 99, BUN/Creatinine Ratio 10.3, Glucose 175 H, Lactic Acid 1.6, Calcium 9.0, Total Bilirubin 4.42 H, Direct Bilirubin 2.99 H, AST 250 H, ALT 628 H, Alkaline Phosphatase 266 H, Total Protein 7.4, Albumin 4.3, Globulin 3.2, Lipase 13 08/29/24 16:26: Urine Color Straw, Urine Clarity Clear, Urine pH 6.0, Ur Specific Goltry 1.010, Urine Protein 30 H, Urine Glucose (UA) Normal, Urine Ketones 50 H, Urine Occult Blood 25 H, Urine Nitrite Positive H, Urine Bilirubin6 H, Urine Urobilinogen 8 H, Ur Leukocyte Esterase 25 H, Urine RBC 0-5 SEEN, Urine WBC 5-10 SEEN, Ur Squamous Epith Cells 0-5 SEEN, Urine Bacteria 1+, Urine Mucus RARE, Urine Test Negative Micro: Microbiology 08/29/24 13:50 Mucosa - Nose SARS-CoV-2, Influenza & RSV (PCR) - Final RSV Imaging Radiology Impression Abdomen/Pelvis CT 08/29/24 15:09 IMPRESSION: Gallstones. Possible gallstone in the neck of the gallbladder. Mild degree of central intrahepatic biliary ductal dilatation. Correlation withultrasound recommended for further evaluation. Fatty infiltration of the liver. One or more dose reduction techniques were used (e.g., Automated exposure control, adjustment of the mA and/or kV according to patient size, use of iterative reconstruction technique). Reading Location: [facility] Chest X-Ray 08/29/24 16:00 IMPRESSION: No acute abnormality is seen. Reading Location: [facility] Gallbladder Ultrasound 08/29/24 16:08 IMPRESSION: 1. Distended gallbladder with cholelithiasis. No pericholecystic fluid or significant wall thickening. Mildly dilated common bile duct measuring 8 mm. Consider MRCP for further assessment if indicated. 2. Hepatic steatosis. 3. Nonspecific hypoechoic lesion in the right hepatic lobe, not a simple cyst. Recommend further evaluation with nonemergent contrast-enhanced MRI. Reading Location: [facility] Assessment & Plan Assessment/Plan (1) Ascending cholangitis: (2) Hepatic lesion: (3) Obstructive jaundice: PLAN: 48-year-old close significant past medical history arrives to the near with abdominal pain and darkening urine. She was discovered to have jaundiced acholestatic hepatitis and with imaging displaying dilated common bile duct on CTscan and ultrasound along with intrahepatic ductal dilation. There is a high suspicion for ascending cholangitis secondary to choledocholithiasis. Recommend emergent ERCP. She was explained alternatives, risk, benefits including not withstanding bleeding, infection, sepsis, perforation, need for emergent surgery and . She was also explained the risk of post ERCP pancreatitis. She will have an ASA 3. Charges/Coding Visit Charges Inpatient E&M: 48674 Init Hosp L3 08/29/24 1840 Cosigner Signature (if applicable): CC: Dr. Milton Coyd MD; Paolo Friend, DO~ Signed [facility]03-07-2025 Consult note [facility] Medical Records Department [address] [place] [address] Consultation - Surgical 08/29/241924 MR#: [id number] Acct: [id number] Name: GALILEA GLASS RENITA Rep #:[id number] : 1975 48 From: Deacon Duckworth PCP: Dr. Milton Cody MD Status:ADM I N Location: [place] [address] Assessment & Plan Assessment/Plan (1) Obstructive jaundice: PLAN: Patient is 48-year-old female with apparent cholangitis and obstructive jaundice?likely owingto a underlying diagnosis of choledocholithiasis. Patientis pending ERCP with gastroenterology. Will await findings of this study as well as patient's clinical response to this intervention. I did discuss with patient that I would plan for same?admission laparoscopic cholecystectomy with intraoperative cholangiography to mitigate her risk for further issues from gallstones. Procedure was described in detail. I suggested that we follow-up tomorrow and be sure she responds appropriately. In the event that patient is clinically ready for surgery would recommend keeping her n.p.o. past midnight. Deacon Burgos MD General Surgery Endocrine Surgery Pager: [facility] [address] [place] [address], [facility], [address] [place] [id number] Office: [phone] HPI Consult Data Date of Consult: 08/29/24 HPI Narrative Reason for Consultation: Choledocholithiasis with cholangitis HPI Narrative: GALILEA GLASS, is a 48 F who presents to [facility] emergency department on direction from her PCP office after presenting there for a myriad of symptoms. She notes recently her grandchild was diagnosed with RSV and she suspected that she had fallen ill with this condition but was never formally tested. She then reports on 08/27/2024 she awoken with a sharp pain in her stomach. She states the pain was so intense that had her doubled over and she felt sweaty but when checking her temperature she found she was afebrile. She notes taking some antacids to try to improve the pain butshe generally had a poor appetite. She was not seen that day but reports feeling rundown yesterday with somewhat less abdominal pain. She reports she did have some darker colored urine but this wasattributed to a relative dehydrated status. She then woke this morning with severe back pain which she attributed to vigorous coughing. With this back pain and some associated chills she sought a sick visit with her PCP where she saw a nurse practitioner who commented they felt that she had some flu id buildup in her ears and recommended overall conservative treatment but expressed concern about her returning home. Patient's evaluation in the ER included biochemical evaluation with laboratoriesincluding CMP that showed transaminitis and hyperbilirubinemia with a T. bili of4.42. CBC demonstrated leukocytosis with left shift. Initially CT imaging of the abdomen pelvis was obtained that showed gallbladder with some gallstones (1 possibly located in the neck) but more prominently there was a dilated common bileduct and some evidence of diffuse fatty liver infiltration. Given patient's laboratories and the finding of a dilated common bile duct ultrasound was performed reflexively. Once again this showed a distended gallbladder with cholelithiasis but, notably, radiology stated there is no evidence of wallthickening or pericholecystic fluid. They did note the patient's common bile duct measured 8 mm in diameter. With these findings surgery is asked to evaluate patient for possible cholecystectomy. Emergency medicine noted that they had previously contacted gastroenterology and ERCP was pending for today. Patient past medical history notable for some hypothyroidism and PCOS. Surgically?speaking patient has a history of thyroid lobectomy and more remotelya history of several sections [facility] Medical History PCOS (polycystic ovarian syndrome) Migraine headache Home Medications ?Medication ?Instructions ?Recorded ?Last Taken ?Type thyroid (pork) 60 mg tablet 60 mg PO DAILY 08/23/20 History ([place] Thyroid) cholecalciferol (vitamin D3) 1 tab PO DAILY 08/29/24 U nknown History levothyroxine 25 mcg tablet 25 mcg PO SUTUWETHSA 08/2908/29/24 History magnesium citrate 125 mg capsule 250 mg PO QHS 5 Unknown History metformin 500 mg tablet 500 mg PO DAILY 08/29/24 Unk nown History Allergy/AdvReac Type Severity Reaction Status Date / Time Penicillins Allergy Intermediate Hives Verified 08/30/20 13:09 chlorhexidine Allergy Mild Rash Verified 08/30/20 13:09 Family History Other Cancer Diabetes Heart disease Hypertension Surgical History History of lobectomy of thyroid Social History household members: spouse housing: house Smoking Status: Never smoker Physical Exam Const alert Constitutional Narrative: Mildly distressed from abdominal discomfort, visibly jaundiced Nutritional Appearance: obese Resp normal respiratory effort GI GI Narrative: Obese, no visible scars to the upper abdomen, nondistended, soft, mildly tender across the epigastrium. Negative Lamar sign. Lab / Micro Data 08/29/24 15:11 08/29/24 15:11 Labs: Laboratory Results - last 24 hr 08/29/24 15:11: WBC 13.5 H, RBC 5.33, Hgb 14.6, Hct 44.1, MCV 82.7, MCH 27.4, MCHC 33.1, RDW Std Deviation 38.4, RDW Coeff of Fabio 12.8, Plt Count 202, MPV 10.7, Immature Gran % (Auto) 0.600, Neut % (Auto) 93.9 H, Lymph % (Auto) 2.0 L, Stanley % (Auto) 3.3, Eos % (Auto) 0.0, Baso % (Auto) 0.2, AbsoluteNeuts (auto) 12.6 H, Absolute Lymphs (auto) 0.27 L, Nucleated RBC % 0, PT 13.5, INR 1.0, APTT27.9, Sodium 134, Potassium 3.9, Chloride 99, Carbon Dioxide 20.2 L, Anion Gap 14, BUN 8, Creatinine 0.74,Estim Creat Clear Calc 95.78, Est GFR (MDRD) Non- Af 99, BUN/Creatinine Ratio 10.3, Glucose 175 H, Lactic Acid 1.6, Calcium 9.0, Total Bilirubin 4.42 H, Direct Bilirubin 2.99 H, AST 250 H, ALT 628 H, Alkaline Phosphatase 266 H, Total Protein 7.4, Albumin 4.3, Globulin 3.2, Lipase 13 08/29/24 16:26: Urine Color Straw, Urine Clarity Clear, Urine pH 6.0, Ur Specific Goltry 1.010, Urine Protein 30 H, Urine Glucose (UA) Normal, Urine Ketones 50 H, Urine Occult Blood 25 H, Urine Nitrite Positive H, Urine Bilirubin6 H, Urine Urobilinogen 8 H, Ur Leukocyte Esterase 25 H, Urine RBC 0-5 SEEN, Urine WBC 5-10 SEEN, Ur Squamous Epith Cells 0-5 SEEN, Urine Bacteria 1+, Urine Mucus RARE, Urine Test Negative Micro: Microbiology 08/29/24 13:50 Mucosa - Nose SARS-CoV-2, Influenza & RSV (PCR) - Final RSV Imaging Radiology Impression Abdomen/Pelvis CT 08/29/24 15:09 IMPRESSION: Gallstones. Possible gallstone in the neck of the gallbladder. Mild degree of central intrahepatic biliary ductal dilatation. Correlation withultrasound recommended for further evaluation. Fatty infiltration of the liver. One or more dose reduction techniques were used (e.g., Automated exposure control, adjustment of the mA and/or kV according to patient size, use of iterative reconstruction technique). Reading Location: [facility] Chest X-Ray 08/29/24 16:00 IMPRESSION: No acute abnormality is seen. Reading Location: [facility] Gallbladder Ultrasound 08/29/24 16:08 IMPRESSION: 1. Distended gallbladder with cholelithiasis. No pericholecystic fluid or significant wall thickening. Mildly dilated common bile duct measuring 8 mm. Consider MRCP for further assessment if indicated. 2. Hepatic steatosis. 3. Nonspecific hypoechoic lesion in the right hepatic lobe, not a simple cyst. Recommend further evaluation with nonemergent contrast-enhanced MRI. Reading Location: [facility] Charges/Coding Visit Charges Inpatient E&M: 64636 Init Hosp L2 08/29/24 1934 Cosigner Signature (if applicable): CC: Dr. Milton Cody MD; Paolo Waller, DO~ Signed [facility]03-07-2025 [facility] Medical Records Department [address] [place] [address] History Physical Exam 08/29/24 1832 MR#: [id number] Acct: [id number] Name: GALILEA GLASS Rep #: [id number] : 1975 48 From: Paolo Waller DO PCP: Dr. Milton Cody MD Status:REG [facility] Location: [facility] [id number] HPI - General General Date of Admission: 08/29/24 Date of Service: 08/29/24 Chief Complaint: Ascending cholangitis HPI Narrative GALILEA GLASS, is a 48 F who presents with fever, chills, epigastric, right lower quadrant pain and back pain. She was sent here after seeing PCP office. Patient reports beginning of illness 2 weeks ago grandson diagnosed RSV. She has had sinus congestion. Symptoms of upper respiratory were started to improve. This past Sunday increased severe pain across her upper abdomen. Nausea when she eats. No vomiting no diarrhea no urinary symptoms however states recent urines a lot more dark in color she is taking less p.o. intake. Seeing her doctor today states had a fever tachycardic. Started having a cough. She still has upper abdominal pain that goes to her back. Denies alcohol history. Denies any abdominal surgeries. Father had pancreatic cancer. Allergies to chlorhexidine and penicillin. In the emergency room she was febrile to 103.4. Heart rate ranges from 120-140 and blood pressure has been ranging from 1 40-1 60 systolic /80s to 90s diastolic. 08/29/24 15:11: WBC 13.5 H, RBC 5.33, Hgb 14.6, Hct 44.1, MCV 82.7, MCH 27.4, MCHC 33.1, RDW Std Deviation 38.4, RDW Coeff of Fabio 12.8, Plt Count 202, MPV 10.7, Immature Gran % (Auto) 0.600, Neut % (Auto) 93.9 H, Lymph % (Auto) 2.0 L, Stanley % (Auto) 3.3, Eos % (Auto) 0.0, Baso % (Auto) 0.2, A bsolute Neuts (auto) 12.6 H, Absolute Lymphs (auto) 0.27 L, Nucleated RBC % 0, PT 13.5, INR 1.0, APTT 27.9, Sodium 134, Potassium 3.9, Chloride 99, Carbon Dioxide 20.2 L, Anion Gap 14, BUN 8, Creatinine 0.74, Estim Creat Clear Calc 95.78, Est GFR (MDRD) Non-Af 99, BUN/Creatinine Ratio 10.3, Glucose 175 H, Lactic Acid 1.6, Calcium 9.0, Total Bilirubin 4.42 H, Direct Bilirubin 2.99 H, AST 250 H, ALT 628 H, Alkaline Phosphatase 266 H, Total Protein 7.4, Albumin 4.3, Globulin 3.2, Lipase 13 08/29/24 16:26: Urine Color Straw, Urine Clarity Clear, Urine pH 6.0, Ur Specific Goltry 1.010, U rine Protein 30 H, Urine Glucose (UA) Normal, Urine Ketones 50 H, Urine Occult Blood 25 H, Urine Nitrite Positive H, Urine Bilirubin 6 H, Urine Urobilinogen 8 H, Ur Leukocyte Esterase 25 H, Urine RBC 0-5 SEEN, Urine WBC 5-10 SEEN, Ur Squamous Epith Cells 0-5 SEEN, Urine Bacteria 1+, Urine Mucus RARE, Urine Test Negative CT/Abdomen/Pelvis W IV Cont ONLY IMPRESSION: Gallstones. Possible gallstone in the neck of the gallbladder. Mild degree of central intrahepatic biliary ductal dilatation. Correlation with ultrasound recommended for further evaluation. Fatty infiltration of the liver. US/Gallbladder IMPRESSION: 1. Distended gallbladder with cholelithiasis. No pericholecystic fluid or significant wall thickening. Mildly dilated common bile duct measuring 8 mm. Consider MRCP for further assessment if indicated. 2. Hepatic steatosis. 3. Nonspecific hypoechoic lesion in the right hepatic lobe, not a simple cyst. Recommend further evaluation with nonemergent contrast-enhanced MRI. [facility] Medical History (Updated 08/29/24 @ 18:[address] Boone Friend, DO) PCOS (polycystic ovarian syndrome) Migraine headache Home Medications ???Medication ???Instructions ???Recorded ???Last Taken ???Type thyroid (pork) 60 mg tablet 60 mg PO DAILY 08/23/20 08/29/24 H istory ([facility] Thyroid) cholecalciferol (vitamin D3) 1 tab PO DAILY 08/29/24 Unknown Hi story levothyroxine 25 mcg tablet 25 mcg PO SUTUWETHSA 08/29/2401/16 History magnesium citrate 125 mg capsule 250 mg PO QHS 08/29/24 Unknown His tory metformin 500 mg tablet 500 mg PO DAILY 08/29/24 Unknown H istory Allergy/AdvReac Type Severity Reaction Status Date / Time Penicillins Allergy Intermediate Hives Verified 08/30/20 13:09 chlorhexidine Allergy Mild Rash Verified 08/30/20 13:09 Family History Other Cancer Diabetes Heart disease Hypertension Surgical History History of lobectomy of thyroid Social History household members: spouse housing: house Smoking Status: Never smoker ROS Constitutional Constitutional: Denies fatigue, fever(s), poor appetite, weight gain or weight loss Gastrointestinal Gastrointestinal: Denies belching, bloating, change in bowel habits, change in stool character, chewing difficulty, coffee ground emesis, constipation, cramping, diarrhea, dyspepsia, dysph (more content not included)...[facility] 08-29-2024 Consult note [facility] Medical Records Department [address] [place] [address] Pre-Anesthesia Evaluation 08/29/24 1851 MR#: [id number] Acct: [id number] Name: GALILEA GLASS Rep #:[id number] : 1975 48 From: Ruy Gallagher MD PCP: Dr. Milton Cody MD Status:ADM I N Y Race: C Location: [place] [id number] 41 ASA Classification* ASA Classification ASA Classification: 2 and E Assessment & Plan Anesthesia* Anesthesia Assessment Anesthesia Assessment: Discussed sedation and/or anesthesia options, risks, benefits, and alternatives with patient/parents/legal guardian/POA. Questions invited. The patient/parents/legal guardian/POA seems to understand and agrees to proceedwith anesthesia plan. Reviewed the physical assessment, medical history, allergy history and patient home medications list prior to surgery/procedure/anesthetic and documented any changes. Performed airway and anesthesia risk assessments. Anesthesia Type Anesthesia Type: General Anesthesia Focused Assessment* Temperature: 98.7 F Pulse Rate: 106 Blood Pressure: 111/78 Respiratory Rate: 16 Pulse Ox: 94 Airway Assessment Mouth opens: >3 cm Mallampati Score: II Focused Labs Anesthesia Preop lab: CBC WBC 13.5 K/mm3 (4.4-11.0) H 08/29/24 15:11 5 RBC 5.33 M/mm3 (4.2-5.4) 08/29/24 15:11 08/29/24 Hgb 14.6 g/dL (12.0-15.0) 08/29/24 15:11 08/29/24 Hct 44.1 % (37-47) 08/29/24 15:11 08/29/24 Plt Count 202 K/mm3 (150-450) 08/29/24 15:11 08/29/24 CHEMISTRY Potassium 3.9 mmol/L (3.3-5.1) 08/29/24 15:11 08/29/24 Sodium 134 mmol/L (133-145) 08/29/24 15:11 08/29/24 BUN 8 mg/dL (4-19) 08/29/24 15:11 08/29/24 Creatinine 0.74 mg/dL (0.70-1.20) 08/29/24 15:11 08/29/24 Glucose 175 mg/dL (70-99) H 08/29/24 15:11 08/29/24 TSH 0.14 uIU/mL (0.358-3.74) L 09/01/19 12:06 03/0 03/14 COAG PT 13.5 SECONDS (11.7-14.9) 08/29/24 15:11 Urine Test Negative Negative 08/29/24 16:26 08/29/24 Pre-Assessment Diagnosis/Proposed Procedure Planned Operative Procedure(s): ERCP Anesthesia History Anesthesia History - piece cutter: Anesthesia History - piece cutter Hx Hospitalization Any Problems With Anesthesia No 08/29/24 18:21 Cholinesterase deficiency No 08/29/24 18:21 You/Your Family Experience No 08/29/24 18:21 fever (hyperthermia) with Relationship Recent Exposure to Contagious No 08/29/24 18:21 Disease Does patient have nerve No 08/29/24 18:21 stimulator Patient instructed to have device shut off --Does patient have Pacemaker No 08/29/24 18:21 or ICD? When Was Last Pacemaker Check QUESTION #4 FULL TEXT: You/Your Family Experience fever (hyperthermia) with Anesthesia Last Oral Intake Last Oral intake: Last Oral Intake NPO since 14:30 08/29/24 18:21 Meds taken in AM with sips of water? Meds patient instructed to take am of surgery PONV PONV - piece cutter: PONV - piece cutter Female HX of Motion Sickness HX of N/V After Surgery Non-Smoker Duration of Surgery greater than 60 minutes Number of Risk Factors PONV Score Height & Weight Height & Weight: Anesthesia: Height & Weight Height 5 ft 2 in 08/29/24 18:21 Weight: 91.626 kg 08/29/24 18:21 Body Mass Index (BMI) 36.9 08/29/24 18:21 Respiratory Assessment Respiratory Assessment - piece cutter: Respiratory Tract Infection Hx - piece cutter Hx Respiratory Tract Infection Yes 08/29/24 18:21 STOP Sleep Apnea STOP Sleep Apnea - piece cutter: STOP Sleep Apnea - piece cutter Hx Hypertension No 08/29/24 18:21 Hx Sleep Apnea No 08/29/24 18:21 CPAP BIPAP Do you snore loudly (louder No 08/29/24 18:21 than talking or can be heard Do you often feel tired/ No 08/29/24 18:21 fatigued/ sleepy during daytime? Has anyone observed you stop No 08/29/24 18:21 breathing during sleep? STOP Results Negative 08/29/24 18:21 QUESTION #5 FULL TEXT : Do you snore loudly (louder than talking or can be heard through closeddoors)? Tobacco Use History Tobacco Use History - piece cutter: Tobacco Use History - piece cutter Tobacco Use Smoking Status Never smoker 08/29/24 15:31 Hx Tobacco Use Years Smoking Packs Smoked per Day Smoking Cessation Date was within the last 15 years Hx Smoking Cessation Date Hx Smoking Cessation Counseling Hematologic Medial History Hematologic Hx - piece cutter: Hematologic Medical Hx - lifestyle consultant Hx of Blood Transfusion Hx of Transfusion in last 3 Months Date of Last Transfusion (if within last 3 months) Ever experience any problems with transfusion(s)? Specify any problems Hx of Preganancy in last 3 Months Nurse Filling Out Transfusion & Questions: Date: Time: Patient unable to answer at this time (ie. confused, unrespo /Reproduction History /Reproductive History - piece cutter: /Reproductive Hx- piece cutter Hx Now No 08/29/24 18:21 Gestational Age (in weeks): EDC: Hx Hx Para Hx Section SAB No 08/29/24 18:21 [facility] Medical History PCOS (polycystic ovarian syndrome) Migraine headache Home Medications ?Medication ?Instructions ?Recorded ?Last Taken ?Type thyroid (pork) 60 mg tablet 60 mg PO DAILY 08/23/20 History ([place] Thyroid) cholecalciferol (vitamin D3) 1 tab PO DAILY 08/29/24 U nknown History levothyroxine 25 mcg tablet 25 mcg PO SUTUWETHSA 08/2908/29/24 History magnesium citrate 125 mg capsule 250 mg PO QHS 5 Unknown History metformin 500 mg tablet 500 mg PO DAILY 08/29/24 Unk nown History Allergy/AdvReac Type Severity Reaction Status Date / Time Penicillins Allergy Intermediate Hives Verified 08/30/20 13:09 chlorhexidine Allergy Mild Rash Verified 08/30/20 13:09 Family History Other Cancer Diabetes Heart disease Hypertension Surgical History History of lobectomy of thyroid Social History household members: spouse housing: house Smoking Status: Never smoker Review of Systems (Anesthesia) ROS Narrative System reviewed and no additional complaints, except as documented. 08/29/24 1918 > Date _ Ruy Gallagher MD Cosigner Signature: Date CC: ~ Signed [facility]03-07-2025 History and physical note [facility] Medical Records Department [address] [place] [address] History & Physical Exam 08/29/24 1832 MR#: [id number] Acct: [id number] Name: GALILEA GLASS Rep #:[id number] : 1975 48 From: Paolo Friend DO PCP: Dr. Milton Cody MD Status:REG S DC Location: [facility] [id number] HPI - General General Date of Admission: 08/29/24 Date of Service: 08/29/24 Chief Complaint: Ascending cholangitis HPI Narrative GALILEA GLASS, is a 48 F who presents with fever, chills, epigastric, right lower quadrant pain andback pain. She was sent here after seeing PCP office. Patient reports beginning of illness 2 weeks ago grandson diagnosed RSV. She has had sinus congestion. Symptoms of upper respiratory were startedto improve. This past Sunday increased severe pain across her upper abdomen. Nausea when she eats. No vomiting no diarrhea no urinary symptoms however states recent urines a lot more dark in colorshe is taking less p.o. intake. Seeing her doctor today states had a fever tachycardic. Started having a cough. She still has upper abdominal pain that goes to her back. Denies alcohol history. Denies any abdominal surgeries. Father had pancreatic cancer. Allergies to chlorhexidine and penicillin. In the emergency room she was febrile to 103.4. Heart rate ranges from 120-140 and blood pressure has been ranging from 1 40-1 60 systolic /80s to 90s diastolic. 08/29/24 15:11: WBC 13.5 H, RBC 5.33, Hgb 14.6, Hct 44.1, MCV 82.7, MCH 27.4, MCHC 33.1, RDW Std Deviation 38.4, RDW Coeff of Fabio 12.8, Plt Count 202, MPV 10.7, Immature Gran % (Auto) 0.600, Neut % (Auto) 93.9 H, Lymph % (Auto) 2.0 L, Stanley % (Auto) 3.3, Eos % (Auto) 0.0, Baso % (Auto) 0.2, AbsoluteNeuts (auto) 12.6 H, Absolute Lymphs (auto) 0.27 L, Nucleated RBC % 0, PT 13.5, INR 1.0, APTT27.9, Sodium 134, Potassium 3.9, Chloride 99, Carbon Dioxide 20.2 L, Anion Gap 14, BUN 8, Creatinine 0.74,Estim Creat Clear Calc 95.78, Est GFR (MDRD) Non- Af 99, BUN/Creatinine Ratio 10.3, Glucose 175 H, Lactic Acid 1.6, Calcium 9.0, Total Bilirubin 4.42 H, Direct Bilirubin 2.99 H, AST 250 H, ALT 628 H, Alkaline Phosphatase 266 H, Total Protein 7.4, Albumin 4.3, Globulin 3.2, Lipase 13 08/29/24 16:26: Urine Color Straw, Urine Clarity Clear, Urine pH 6.0, Ur Specific Goltry 1.010, Urine Protein 30 H, Urine Glucose (UA) Normal, Urine Ketones 50 H, Urine Occult Blood 25 H, Urine Nitrite Positive H, Urine Bilirubin6 H, Urine Urobilinogen 8 H, Ur Leukocyte Esterase 25 H, Urine RBC 0-5 SEEN, Urine WBC 5-10 SEEN, Ur Squamous Epith Cells 0-5 SEEN, Urine Bacteria 1+, Urine Mucus RARE, Urine Test Negative CT/Abdomen/Pelvis W IV Cont ONLY IMPRESSION: Gallstones. Possible gallstone in the neck of the gallbladder. Mild degree of central intrahepatic biliary ductal dilatation. Correlation withultrasound recommended for further evaluation. Fatty infiltration of the liver. US/Gallbladder IMPRESSION: 1. Distended gallbladder with cholelithiasis. No pericholecystic fluid or significant wall thickening. Mildly dilated common bile duct measuring 8 mm. Consider MRCP for further assessment if indicated. 2. Hepatic steatosis. 3. Nonspecific hypoechoic lesion in the right hepatic lobe, not a simple cyst. Recommend further evaluation with nonemergent contrast-enhanced MRI. [facility] Medical History (Updated 08/29/24 @ 18:[address] Boone Friend, DO) PCOS (polycystic ovarian syndrome) Migraine headache Home Medications ?Medication ?Instructions ?Recorded ?Last Taken ?Type thyroid (pork) 60 mg tablet 60 mg PO DAILY 08/23/20 History ([place] Thyroid) cholecalciferol (vitamin D3) 1 tab PO DAILY 08/29/24 U nknown History levothyroxine 25 mcg tablet 25 mcg PO SUTUWETHSA 08/2908/29/24 History magnesium citrate 125 mg capsule 250 mg PO QHS 5 Unknown History metformin 500 mg tablet 500 mg PO DAILY 08/29/24 Unk nown History Allergy/AdvReac Type Severity Reaction Status Date / Time Penicillins Allergy Intermediate Hives Verified 08/30/20 13:09 chlorhexidine Allergy Mild Rash Verified 08/30/20 13:09 Family History Other Cancer Diabetes Heart disease Hypertension Surgical History History of lobectomy of thyroid Social History household members: spouse housing: house Smoking Status: Never smoker ROS Constitutional Constitutional: Denies fatigue, fever(s), poor appetite, weight gain or weight loss Gastrointestinal Gastrointestinal: Denies belching, bloating, change in bowel habits, change in stool character, chewing difficulty, coffee ground emesis, constipation, cramping, diarrhea, dyspepsia, dysphagia, earlysatiety, excessive flatus, fecalincontinence, heartburn, hematemesis, hematochezia, hemorrhoids, loose stools, melena, nausea, odynophagia, rectal bleeding, tenesmus, vomiting or weight changes Vital Signs Vital Signs Vital Signs: 08/29/24 13:45 08/29/24 15:31 08/29/24 17:44 Temperature 102.4 F H Temperature Source Temporal Pulse Rate 138 H 100 Respiratory Rate 17 Respiratory Effort Normal Non-Labored Respiratory Pattern Normal Blood Pressure 160/93 H 118/79 Blood Pressure Mean 115 92 Pulse Ox 100 94 Oxygen Delivery Method Room Air Weight Weight: 202 lb Body Mass Index (BMI) 36.9 Physical Exam Const alert, oriented x3, no apparent distress and healthy appearing General Appearance: cooperative GI normal to inspection, nondistended, normoactive bowel sounds, soft to palpation,non-tender and non-distended Percussion: normal to percussion Rectal Exam: deferred Results Lab / Micro Data 08/29/24 15:11 08/29/24 15:11 Labs: Laboratory Results - last 24 hr 08/29/24 15:11: WBC 13.5 H, RBC 5.33, Hgb 14.6, Hct 44.1, MCV 82.7, MCH 27.4, MCHC 33.1, RDW Std Deviation 38.4, RDW Coeff of Fabio 12.8, Plt Count 202, MPV 10.7, Immature Gran % (Auto) 0.600, Neut % (Auto) 93.9 H, Lymph % (Auto) 2.0 L, Stanley % (Auto) 3.3, Eos % (Auto) 0.0, Baso % (Auto) 0.2, AbsoluteNeuts (auto) 12.6 H, Absolute Lymphs (auto) 0.27 L, Nucleated RBC % 0, PT 13.5, INR 1.0, APTT27.9, Sodium 134, Potassium 3.9, Chloride 99, Carbon Dioxide 20.2 L, Anion Gap 14, BUN 8, Creatinine 0.74,Estim Creat Clear Calc 95.78, Est GFR (MDRD) Non- Af 99, BUN/Creatinine Ratio 10.3, Glucose 175 H, Lactic Acid 1.6, Calcium 9.0, Total Bilirubin 4.42 H, Direct Bilirubin 2.99 H, AST 250 H, ALT 628 H, Alkaline Phosphatase 266 H, Total Protein 7.4, Albumin 4.3, Globulin 3.2, Lipase 13 08/29/24 16:26: Urine Color Straw, Urine Clarity Clear, Urine pH 6.0, Ur Specific Goltry 1.010, Urine Protein 30 H, Urine Glucose (UA) Normal, Urine Ketones 50 H, Urine Occult Blood 25 H, Urine Nitrite Positive H, Urine Bilirubin6 H, Urine Urobilinogen 8 H, Ur Leukocyte Esterase 25 H, Urine RBC 0-5 SEEN, Urine WBC 5-10 SEEN, Ur Squamous Epith Cells 0-5 SEEN, Urine Bacteria 1+, Urine Mucus RARE, Urine Test Negative Micro: Microbiology 08/29/24 13:50 Mucosa - Nose SARS-CoV-2, Influenza & RSV (PCR) - Final RSV Imaging Radiology Impression Abdomen/Pelvis CT 08/29/24 15:09 IMPRESSION: Gallstones. Possible gallstone in the neck of the gallbladder. Mild degree of central intrahepatic biliary ductal dilatation. Correlation withultrasound recommended for further evaluation. Fatty infiltration of the liver. One or more dose reduction techniques were used (e.g., Automated exposure control, adjustment of the mA and/or kV according to patient size, use of iterative reconstruction technique). Reading Location: [id number] Chest X-Ray 08/29/24 16:00 IMPRESSION: No acute abnormality is seen. Reading Location: [id number] Gallbladder Ultrasound 08/29/24 16:08 IMPRESSION: 1. Distended gallbladder with cholelithiasis. No pericholecystic fluid or significant wall thickening. Mildly dilated common bile duct measuring 8 mm. Consider MRCP for further assessment if indicated. 2. Hepatic steatosis. 3. Nonspecific hypoechoic lesion in the right hepatic lobe, not a simple cyst. Recommend further evaluation with nonemergent contrast-enhanced MRI. Reading Location: [facility] Assessment & Plan Assessment/Plan (1) Ascending cholangitis: (2) Hepatic lesion: (3) Obstructive jaundice: PLAN: 48-year-old close significant past medical history arrives to the near with abdominal pain and darkening urine. She was discovered to have jaundiced acholestatic hepatitis and with imaging displaying dilated common bile duct on CTscan and ultrasound along with intrahepatic ductal dilation. There is a high suspicion for ascending cholangitis secondary to choledocholithiasis. Recommend emergent ERCP. She was explained alternatives, risk, benefits including not withstanding bleeding, infection, sepsis, perforation, need for emergent surgery and . She was also explained the risk of post ERCP pancreatitis. She will have an ASA 3. Charges/Coding Visit Charges Inpatient E&M: 85766 Init Hosp L3 08/29/24 1840 Cosigner Signature (if applicable): CC: Dr. Milton Cody MD; Paolo Waller, ~ Signed [facility]03-07-2025 Radiology Diagnostic study note [facility] Imaging Services [address], [place] [address] Gallbladder MR#: [id number] Acct: [id number] Name: GALILEA GLASS Rep #: [id number] : 1975 F 48 From: Mesfin Vasquez DO PCP: Dr. Milton Cody MD Status: REG E R Study:Gallbladder Date of Exam: 08/29/24 Exam# [id number] Ordering Dr: Scot Gonzalez DO PROCEDURE: Right upper quadrant ultrasound REASON FOR EXAM: Pain COMPARISON: Same day CT FINDINGS: Mildly distended gallbladder. Diffuse increased hepatic echogenicity most consistent with steatosis. Ovoid hypoechoic lesion in the right hepatic lobe measuring up to 2.7 cm. Distended gallbladder with multiple calculi. No significant gallbladder wall thickening or pericholecystic fluid. Mildly dilated common bile duct measuring 8 mm. Visualized portions of the pancreas and right kidney are within normal limits. US/Gallbladder IMPRESSION: 1. Distended gallbladder with cholelithiasis. No pericholecystic fluid or significant wall thickening. Mildly dilated common bile duct measuring 8 mm. Consider MRCP for further assessment if indicated. 2. Hepatic steatosis. 3. Nonspecific hypoechoic lesion in the right hepatic lobe, not a simple cyst. Recommend further evaluation with nonemergent contrast-enhanced MRI. Reading Location: [facility] CC: Dr. Scot Gonzalez DO; Dr. Milton Cody MD ~ Lunchroom Mother: Signed [facility]03-07-2025 Radiology Diagnostic study note [facility] Imaging Services [address] [place] [address] Gallbladder MR#: [id number] Acct: [id number] Name: GALILEA GLASS Rep #: [id number] : 1975 F 48 From: Mesfin Vasquez DO PCP: Dr. Milton Cody MD Status: REG E R Study:Gallbladder Date of Exam: 08/29/24 Exam# [id number] Ordering Dr: Scot Gonzalez DO PROCEDURE: Right upper quadrant ultrasound REASON FOR EXAM: Pain COMPARISON: Same day CT FINDINGS: Mildly distended gallbladder. Diffuse increased hepatic echogenicity most consistent with steatosis. Ovoid hypoechoic lesion in the right hepatic lobe measuring up to 2.7 cm. Distended gallbladder with multiple calculi. No significant gallbladder wall thickening or pericholecystic fluid. Mildly dilated common bile duct measuring 8 mm. Visualized portions of the pancreas and right kidney are within normal limits. US/Gallbladder IMPRESSION: 1. Distended gallbladder with cholelithiasis. No pericholecystic fluid or significant wall thickening. Mildly dilated common bile duct measuring 8 mm. Consider MRCP for further assessment if indicated. 2. Hepatic steatosis. 3. Nonspecific hypoechoic lesion in the right hepatic lobe, not a simple cyst. Recommend further evaluation with nonemergent contrast-enhanced MRI. Reading Location: [facility] CC: Dr. Scot Gonzalez DO; Dr. Milton Cody MD ~ Lunchroom Mother: Signed [facility]03-07-2025 Radiology Diagnostic study note [facility] Imaging Services [address] [place] [address] Chest PA and Lateral MR#: [id number] Acct: [id number] Name: [facility] Rep #: [id number] : 1975 F 48 From: Jamaal Higgins MD PCP: Dr. Milton Cody MD Status: REG E R Study:Chest PA and Lateral Date of Exam: 08/29/24 Exam# [id number] Ordering Dr: Scot Gonzalez DO PROCEDURE: CHEST PA AND LATERAL REASON FOR EXAM: Cough. TECHNIQUE: Frontal and lateral views of the chest. COMPARISON: None. FINDINGS: The heart is nonenlarged. The lungs are clear. The bones are unremarkable. RAD/Chest PA and Lateral IMPRESSION: No acute abnormality is seen. Reading Location: [facility] CC: Dr. Scot Gonzalez DO; Dr. Milton Cody MD ~ Lunchroom Mother: Signed [facility]03-07-2025 Radiology Diagnostic study note [facility] Imaging Services [address] [place] [address] Abdomen/Pelvis W IV Cont ONLY MR#: [id number] Acct: [id number] [facility] Rep #: [id number] : 1975 F 48 From: Jamaal Higgins MD PCP: Dr. Milton Cody MD Status: REG E R Study:Abdomen/Pelvis W IV Cont ONLY Date of E xam: 08/29/24 Exam# [id number] Ordering Dr: Scot Gonzalez DO PROCEDURE: ABDOMEN/PELVIS W IV CONT ONLY REASON FOR EXAM: Fever. Generalized body aches. Patient is not feeling. TECHNIQUE: Abdomen and pelvis CT with intravenous contrast. IV CONTRAST: COMPARISON: None. FINDINGS: Lung bases: Clear Liver: Diffuse fatty infiltration. Gallbladder: Gallstones. Mildly dilated central intrahepatic biliary ducts. Question gallstone in the neck of the gallbladder. Correlation with the ultrasound of the gallbladder recommended. Spleen: Unremarkable. Pancreas: Unremarkable. Adrenals: Unremarkable. Kidneys: Unremarkable. Bladder: Unremarkable. Reproductive Organs: Small follicles are seen in both ovaries. A nabothian cystis seen in the uterine cervix. Bowel: Unremarkable. Appendix: Normal. Lymph nodes: No suspicious lymph node enlargement. Vasculature: Major vascular structures are unremarkable. Peritoneum / Retroperitoneum: No ascites. No free air. Bones: Unremarkable. CT/Abdomen/Pelvis W IV Cont ONLY IMPRESSION: Gallstones. Possible gallstone in the neck of the gallbladder. Mild degree of central intrahepatic biliary ductal dilatation. Correlation withultrasound recommended for further evaluation. Fatty infiltration of the liver. One or more dose reduction techniques were used (e.g., Automated exposure control, adjustment of the mA and/or kV according to patient size, use of iterative reconstruction technique). Reading Location: [id number] CC: Dr. Scot Gonzalez DO; Dr. Milton Cody MD ~ Lunchroom Mother: Signed [facility]03-07-2025 Radiology Diagnostic study note [facility] Imaging Services [address] [place] [address] [id number] Chest PA and Lateral MR#: [id number] Acct: [id number] Name: GALILEA GLASS Rep #: [id number] : 1975 F 48 From: Jamaal Higgins MD PCP: Dr. Milton Cody MD Status: REG E R Study:Chest PA and Lateral Date of Exam: 08/29/24 Exam# [id number] Ordering Dr: Scot Gonzalez DO PROCEDURE: CHEST PA AND LATERAL REASON FOR EXAM: Cough. TECHNIQUE: Frontal and lateral views of the chest. COMPARISON: None. FINDINGS: The heart is nonenlarged. The lungs are clear. The bones are unremarkable. RAD/Chest PA and Lateral IMPRESSION: No acute abnormality is seen. Reading Location: [id number] CC: Dr. Scot Gonzalez DO; Dr. Milton Cody MD ~ Lunchroom Mother: Signed [facility]03-07-2025 Radiology Diagnostic study note [facility] Imaging Services [address] [place], [place] [id number] Abdomen/Pelvis W IV Cont ONLY MR#: [id number] Acct: [id number] Name: [facility] Rep #: [id number] : 1975 F 48 From: Jamaal Higgins MD PCP: Dr. Milton Cody MD Status: REG E R Study:Abdomen/Pelvis W IV Cont ONLY Date of E xam: 08/29/24 Exam# [id number] Ordering Dr: Scot Gonzalez DO PROCEDURE: ABDOMEN/PELVIS W IV CONT ONLY REASON FOR EXAM: Fever. Generalized body aches. Patient is not feeling. TECHNIQUE: Abdomen and pelvis CT with intravenous contrast. IV CONTRAST: COMPARISON: None. FINDINGS: Lung bases: Clear Liver: Diffuse fatty infiltration. Gallbladder: Gallstones. Mildly dilated central intrahepatic biliary ducts. Question gallstone in the neck of the gallbladder. Correlation with the ultrasound of the gallbladder recommended. Spleen: Unremarkable. Pancreas: Unremarkable. Adrenals: Unremarkable. Kidneys: Unremarkable. Bladder: Unremarkable. Reproductive Organs: Small follicles are seen in both ovaries. A nabothian cystis seen in the uterine cervix. Bowel: Unremarkable. Appendix: Normal. Lymph nodes: No suspicious lymph node enlargement. Vasculature: Major vascular structures are unremarkable. Peritoneum / Retroperitoneum: No ascites. No free air. Bones: Unremarkable. CT/Abdomen/Pelvis W IV Cont ONLY IMPRESSION: Gallstones. Possible gallstone in the neck of the gallbladder. Mild degree of central intrahepatic biliary ductal dilatation. Correlation withultrasound recommended for further evaluation. Fatty infiltration of the liver. One or more dose reduction techniques were used (e.g., Automated exposure control, adjustment of the mA and/or kV according to patient size, use of iterative reconstruction technique). Reading Location: [facility] CC: Dr. Scot Gonzalez DO; Dr. Milton Cody MD ~ Lunchroom Mother: Signed [facility]03-07-2025 [id number] (AGENT OF COVID-19) RNA: Not detected INFLUENZA A RNA: Not detected INFLUENZA B RNA: Not detected RESPIRATORY SYNCYTIAL VIRUS (RSV) RNA: DetectedAshtabula County Medical CenterComment on above:Performed By: #### [id number] ####[facility] LABCLIA [id number] [address]03-07-2025 Instructions* Patient Instructions* Kaylan Rodriguez APRN.CNP - 08/29/2024 1:20 PM EST Ondansetron 4 mg every 8 hours as needed Get in at least 2 oz water every hour Go to ER if condition worsens Covid/flu/RSV swab [facility] NoteHNO ID: [id number] Author: KAYLAN RODRIGUEZ APRN.CNP Service: ? Author Type: Nurse Practitioner Type: Progress Notes Filed: 08/29/2024 13:20 Note Text: This is a 48 year old female who presents today with: Patient presents with: Acute Visit: Nasal congestion, right eye discharge, fatigue, cough, nausea, chills. Exposed to RSV Pain: Pain in back, had sharp pain in mid abdomen 3 days ago HISTORY OF PRESENT ILLNESS: September Quan is a 48 year old female. Patient presents with: Acute Visit: Nasal congestion, right eye discharge, fatigue, cough, nausea, chills. Exposed to RSV Pain: Pain in back, had sharp pain in mid abdomen 3 days ago 13 days ago, grandson Dx with RSV. [facility] Everyone at home sick Head and chest congestion sick from work Fever Eye swollen- right eye red Sunday- epigastric discomfort across upper chest, sweating, on Sunday- slip tender Craving salt Some nausea- at low carb toast Urine cloudy Today back pain No headache Dry cough Right eye red Some nausea, no vomiting Chills Nasal purulent matter Urine dark Sharp pain across juliana. flank PAST MEDICAL HISTORY: PAST MEDICAL HISTORY Diagnosis Date Heel spur left foot menorrhagia PCOS (polycystic ovarian syndrome) Plantar fasciitis of left foot Thyroid nodule Tinea of nail 03/28/2018 03/28/18: [email or web address] PAST SURGICAL HISTORY Procedure Laterality Date DELIVERY ONLY , low cervical DELIVERY ONLY , low cervical DELIVERY ONLY , low transverse PAST SURGICAL HISTORY OF 2012 partial thyroidectomy TX MISSED FIRST TRIMESTER SURGICAL 01/12/06 missed US GUIDED THYROID BIOPSY 06/2012 ALLERGIES Amoxicillin, Chlorhexidine, and Penicillins MEDICATIONS Current Outpatient Medications Medication Sig B cmplx 4/vit D3/C/folic/zinc (VITAL-D RX ORAL) Take by mouth. ARMOUR THYROID 60 mg Take 60 mg by mouth once daily. levothyroxine (SYNTHROID) 25 mcg tablet Take 25 mcg by mouth every other day. No current facility-administered medications for this visit. FAMILY HISTORY Problem Relation Age of Onset Diabetes Father Heart Father TRIPLE BYPASS Cancer Father PANCREATIC Breast Cancer Maternal Grandmother Diabetes Maternal Grandmother Cancer Maternal Grandfather STOMACH CANCER Cancer Paternal Grandmother OVARIAN/UTERINE Heart Paternal Grandfather other (LUPUS) Maternal Aunt Cancer Other cousin (fa's side) melanoma dx 2006 Cancer Other GAUNT WITH BLADDER CANCCER other (Sjogren's Disease) Other Maternal cousin other (Brain Cancer) Other other (PCOS) Daughter other (PCOS) Other Paternal Cousin Social History Tobacco Use Smoking status: Never Smokeless tobacco: Never Vaping Use Vaping status: Never Used Substance Use Topics Alcohol use: No Drug use: No EXAM: BP 112/72 Pulse (!) 145 Temp (!) 39.7 ?C (103.4 ?F) (Temporal) Wt 91.6 kg (202 lb) LMP 09/20/2022 (Exact Date) SpO2 99% BMI 36.95 kg/m? PHYSICAL EXAM: Physical Exam Vitals reviewed. Constitutional: Appearance: Normal appearance. HENT: Head: Normocephalic. Right Ear: There is no impacted cerumen. Left Ear: There is no impacted cerumen. Ears: Comments: TM bulging but no purulent matter Nose: Congestion and rhinorrhea present. Mouth/Throat: Mouth: Mucous membranes are dry. Pharynx: Posterior oropharyngeal erythema present. No oropharyngeal exudate. Cardiovascular: Rate and Rhythm: Tachycardia present. Pulses: Normal pulses. Heart sounds: Normal heart sounds. Pulmonary: Effort: Pulmonary effort is normal. Breath sounds: Normal breath sounds. Abdominal: General: Bowel sounds are normal. Tenderness: There is no abdominal tenderness. There is no guarding. Comments: Epigastric pain- tender to palpate, + VIKAS Musculoskeletal: Comments: Generalized weakness, body aches- walks w/o assistive device Negative CVA tenderness Skin: General: Skin is warm and dry. Neurological: Mental Status: She is alert and oriented to person, place, and time. LABS: ASSESSMENT/PLAN: 1. Acute viral syndrome - ICD9: 079.99, ICD10: B34.9 - Discussed viral etiology and rationale for treatment. - Symptomatic treatment with prn analgesia - Supportive care with fluids and rest - Discussed ER for dehydration, not wanting to go - Will consider going, take 2 oz water daily - if Sx worsen, please go to ER as recommended - Zofran as needed Discussed treatment plan and patient voices understanding. Patient's questions answered appropriately. Medications and potential side effects were discussed and patient voices understanding. Return to the office as scheduled or as needed for worsening/no improvement. Kaylan Rodrigeuz APRN.[facility]03-07-2025 History of Present illness Narrative* Kaylan Rodriguez APRN.[facility] - 08/29/2024 12:57 PM EST This is a 48 year old female who presents today with: Patient presents with: Acute Visit: Nasal congestion, right eye discharge, fatigue, cough, nausea, chills. Exposed to RSV Pain: Pain in back, had sharp pain in mid abdomen 3 days ago HISTORY OF PRESENT ILLNESS: September Quan is a 48 year old female. Patient presents with: Acute Visit: Nasal congestion, right eye discharge, fatigue, cough, nausea, chills. Exposed to RSV Pain: Pain in back, had sharp pain in mid abdomen 3 days ago 13 days ago, grandson Dx with RSV. [facility] Everyone at home sick Head and chest congestion sick from work Fever Eye swollen- right eye red Sunday- epigastric discomfort across upper chest, sweating, on Sunday- slip tender Craving salt Some nausea- at low carb toast Urine cloudy Today back pain No headache Dry cough Right eye red Some nausea, no vomiting Chills Nasal purulent matter Urine dark Sharp pain across juliana. flank PAST MEDICAL HISTORY: PAST MEDICAL HISTORY Diagnosis Date Heel spur left foot menorrhagia PCOS (polycystic ovarian syndrome) Plantar fasciitis of left foot Thyroid nodule Tinea of nail 03/28/2018 03/28/18: [email or web address] PAST SURGICAL HISTORY Procedure Laterality Date DELIVERY ONLY , low cervical DELIVERY ONLY , low cervical DELIVERY ONLY , low transverse PAST SURGICAL HISTORY OF 2012 partial thyroidectomy TX MISSED FIRST TRIMESTER SURGICAL 01/12/06 missed US GUIDED THYROID BIOPSY 06/2012 ALLERGIES Amoxicillin, Chlorhexidine, and Penicillins MEDICATIONS Current Outpatient Medications Medication Sig B cmplx 4/vit D3/C/folic/zinc (VITAL-D RX ORAL) Take by mouth. ARMOUR THYROID 60 mg Take 60 mg by mouth once daily. levothyroxine (SYNTHROID) 25 mcg tablet Take 25 mcg by mouth every other day. No current facility-administered medications for this visit. FAMILY HISTORY Problem Relation Age of Onset Diabetes Father Heart Father TRIPLE BYPASS Cancer Father PANCREATIC Breast Cancer Maternal Grandmother Diabetes Maternal Grandmother Cancer Maternal Grandfather STOMACH CANCER Cancer Paternal Grandmother OVARIAN/UTERINE Heart Paternal Grandfather other (LUPUS) Maternal Aunt Cancer Other cousin (fa's side) melanoma dx 2006 Cancer Other GAUNT WITH BLADDER CANCCER other (Sjogren's Disease) Other Maternal cousin other (Brain Cancer) Other other (PCOS) Daughter other (PCOS) Other Paternal Cousin Social History Tobacco Use Smoking status: Never Smokeless tobacco: Never Vaping Use Vaping status: Never Used Substance Use Topics Alcohol use: No Drug use: No EXAM: BP 112/72 Pulse (!) 145 Temp (!) 39.7 C (103.4 F) (Temporal) Wt 91.6 kg (202 lb) LMP 09/20/2022 (Exact Date) SpO2 99% BMI 36.95 kg/m PHYSICAL EXAM: Physical Exam Vitals reviewed. Constitutional: Appearance: Normal appearance. HENT: Head: Normocephalic. Right Ear: There is no impacted cerumen. Left Ear: There is no impacted cerumen. Ears: Comments: TM bulging but no purulent matter Nose: Congestion and rhinorrhea present. Mouth/Throat: Mouth: Mucous membranes are dry. Pharynx: Posterior oropharyngeal erythema present. No oropharyngeal exudate. Cardiovascular: Rate and Rhythm: Tachycardia present. Pulses: Normal pulses. Heart sounds: Normal heart sounds. Pulmonary: Effort: Pulmonary effort is normal. Breath sounds: Normal breath sounds. Abdominal: General: Bowel sounds are normal. Tenderness: There is no abdominal tenderness. There is no guarding. Comments: Epigastric pain- tender to palpate, + VIKAS Musculoskeletal: Comments: Generalized weakness, body aches- walks w/o assistive device Negative CVA tenderness Skin: General: Skin is warm and dry. Neurological: Mental Status: She is alert and oriented to person, place, and time. LABS: ASSESSMENT/PLAN: 1. Acute viral syndrome - ICD9: 079.99, ICD10: B34.9 - Discussed viral etiology and rationale for treatment. - Symptomatic treatment with prn analgesia - Supportive care with fluids and rest - Discussed ER for dehydration, not wanting to go - Will consider going, take 2 oz water daily - if Sx worsen, please go to ER as recommended - Zofran as needed Discussed treatment plan and patient voices understanding. Patient's questions answered appropriately. Medications and potential side effects were discussed and patient voices understanding. Return to the office as scheduled or as needed for worsening/no improvement. Kaylan Rodriguez APRN.MAGDALENA documented in this encounterOhio [facility]02-[facility]-2025 Telephone encounter Note * Telephone Encounter - Kurt Herbert MA - 07/27/2024 10:59 AM EST Pt seen results via [facility]. Kurt Herbert MA [facility]02-02-2025 Miscellaneous Notes* Telephone Encounter - Kurt Herbert MA - 07/27/2024 10:59 AM EST Pt seen results via MyChart. Kurt Herbert MA * Telephone Encounter - Claritza Upton PA - 07/27/2024 8:07 AM EST Please let patient know she is negative for COVID flu and RSV. She does not need to take Tamiflu. If she has already started it, stop it today. documented in this encounterOhio State [facility]ing [facility]02-02-2025 Telephone encounter Note * Telephone Encounter - Claritza Upton PA - 07/27/2024 8:07 AM EST Please let patient know she is negative for COVID flu and RSV. She does not need to take Tamiflu. If she has already started it, stop it today. [facility] Work Phone: [phone]) 354-663502-01-2025 NoteHNO ID: [id number] Author: LEONARD MAYES APRN.CORPORATE REPRESENTATIVE Service: ? Author Type: Nurse Practitioner Type: Progress Notes Filed: 07/26/2024 13:02 Note Text: CC: Patient presents with: Cough: Chest congestion, drainage x 1 day, exposed to flu HPI: September Quan is a 48 year old female who presents to the office with complaint of head congestion and cough, nonproductive for a few days. Symptoms are worsening Associated symptoms includes cough. Denies wheezing, dyspnea, nausea, vomiting , and diarrhea. Treatments tried include nothing so far. with no relief of symptoms. Sick contacts: yes. History of asthma, frequent episodes of bronchitis, chronic bronchitis, bronchiectasis or COPD: No Smoker: No Seasonal/environmental allergies: No The ROS is otherwise negative. The patient's pmh, medications, allergies, and past visits are reviewed. PHYSICAL EXAM: BP 112/88 Pulse 115 Temp 37.2 ?C (98.9 ?F) Resp 20 Wt 93.8 kg (206 lb 12.7 oz) LMP 09/20/2022 (Exact Date) SpO2 98% BMI 37.82 kg/m? General appearance: alert, cooperative, pleasant, in no acute distress Head: Normocephalic Eyes: EOM's intact, conjunctiva pink and moist, no icterus, sclera white, non-injected Ears: Right ear: External ear/canal- Normal, TM - clear with good landmarks. Left ear: External ear/canal- Normal, TM - clear with good landmarks Oropharynx:moist without lesions, No erythema, exudates or tonsillar hypertrophy. Heart: Negative. RRR without obvious murmur, gallop, or rubs. No ectopy. Lungs: clear to auscultation, without rales or wheeze, good air exchange PAST MEDICAL HISTORY Diagnosis Date Heel spur left foot menorrhagia PCOS (polycystic ovarian syndrome) Plantar fasciitis of left foot Thyroid nodule Tinea of nail 03/28/2018 03/28/18: [email or web address] PAST SURGICAL HISTORY Procedure Laterality Date DELIVERY ONLY , low cervical DELIVERY ONLY , low cervical DELIVERY ONLY , low transverse PAST SURGICAL HISTORY OF 2012 partial thyroidectomy TX MISSED FIRST TRIMESTER SURGICAL 01/12/06 missed US GUIDED THYROID BIOPSY 06/2012 ALLERGIES Amoxicillin, Chlorhexidine, and Penicillins MEDICATIONS B cmplx 4/vit D3/C/folic/zinc (VITAL-D RX ORAL) Take by mouth. ARMOUR THYROID 60 mg Take 60 mg by mouth once daily. levothyroxine (SYNTHROID) 25 mcg tablet Take 25 mcg by mouth every other day. FAMILY HISTORY Problem Relation Age of Onset Diabetes Father Heart Father TRIPLE BYPASS Cancer Father PANCREATIC Breast Cancer Maternal Grandmother Diabetes Maternal Grandmother Cancer Maternal Grandfather STOMACH CANCER Cancer Paternal Grandmother OVARIAN/UTERINE Heart Paternal Grandfather other (LUPUS) Maternal Aunt Cancer Other cousin (fa's side) melanoma dx 2006 Cancer Other GAUNT WITH BLADDER CANCCER other (Sjogren's Disease) Other Maternal cousin other (Brain Cancer) Other other (PCOS) Daughter other (PCOS) Other Paternal Cousin Social History Tobacco Use Smoking status: Never Smokeless tobacco: Never Vaping Use Vaping status: Never Used Substance Use Topics Alcohol use: No Drug use: No ASSESSMENT/PLAN: 1. URI, acute - ICD9: 465.9, ICD10: J06.9 - COVID AND INFLUENZA A/B AND RSV PCR, ROUTINE - OSELTAMIVIR 75 MG CAPSULE If Flu comes back negative have her stop the Tamiflu. Prescription instructions reviewed with patient as applicable. Potential red flag symptoms discussed with the patient. Reviewed appropriate action plan to take if red flag symptoms occur. Patient agreeable to treatment plan. Leonard Mayes APRN.[facility]ENAAs[facility]02-01-[facility] History of Present illness Narrative* Leonard Mayes APRN.MAGDALENA - 07/26/2024 12:46 PM EST CC: Patient presents with: Cough: Chest congestion, drainage x 1 day, exposed to flu HPI: September Quan is a 48 year old female who presents to the office with complaint of head congestion and cough, nonproductive for a few days. Symptoms are worsening Associated symptoms includes cough. Denies wheezing, dyspnea, nausea, vomiting , and diarrhea. Treatments tried include nothing so far. with no relief of symptoms. Sick contacts: yes. History of asthma, frequent episodes of bronchitis, chronic bronchitis, bronchiectasis or COPD: No Smoker: No Seasonal/environmental allergies: No The ROS is otherwise negative. The patient's pmh, medications, allergies, and past visits are reviewed. PHYSICAL EXAM: BP 112/88 Pulse 115 Temp 37.2 C (98.9 F) Resp 20 Wt 93.8 kg (206 lb 12.7 oz) LMP 09/20/2022 (Exact Date) SpO2 98% BMI 37.82 kg/m General appearance: alert, cooperative, pleasant, in no acute distress Head: Normocephalic Eyes: EOM's intact, conjunctiva pink and moist, no icterus, sclera white, non-injected Ears: Right ear: External ear/canal- Normal, TM - clear with good landmarks. Left ear: External ear/canal- Normal, TM - clear with good landmarks Oropharynx:moist without lesions, No erythema, exudates or tonsillar hypertrophy. Heart: Negative. RRR without obvious murmur, gallop, or rubs. No ectopy. Lungs: clear to auscultation, without rales or wheeze, good air exchange PAST MEDICAL HISTORY Diagnosis Date Heel spur left foot menorrhagia PCOS (polycystic ovarian syndrome) Plantar fasciitis of left foot Thyroid nodule Tinea of nail 03/28/2018 03/28/18: [email or web address] PAST SURGICAL HISTORY Procedure Laterality Date DELIVERY ONLY , low cervical DELIVERY ONLY , low cervical DELIVERY ONLY , low transverse PAST SURGICAL HISTORY OF 2012 partial thyroidectomy TX MISSED FIRST TRIMESTER SURGICAL 01/12/06 missed US GUIDED THYROID BIOPSY 06/2012 ALLERGIES Amoxicillin, Chlorhexidine, and Penicillins MEDICATIONS B cmplx 4/vit D3/C/folic/zinc (VITAL-D RX ORAL) Take by mouth. ARMOUR THYROID 60 mg Take 60 mg by mouth once daily. levothyroxine (SYNTHROID) 25 mcg tablet Take 25 mcg by mouth every other day. FAMILY HISTORY Problem Relation Age of Onset Diabetes Father Heart Father TRIPLE BYPASS Cancer Father PANCREATIC Breast Cancer Maternal Grandmother Diabetes Maternal Grandmother Cancer Maternal Grandfather STOMACH CANCER Cancer Paternal Grandmother OVARIAN/UTERINE Heart Paternal Grandfather other (LUPUS) Maternal Aunt Cancer Other cousin (fa's side) melanoma dx 2006 Cancer Other GAUNT WITH BLADDER CANCCER other (Sjogren's Disease) Other Maternal cousin other (Brain Cancer) Other other (PCOS) Daughter other (PCOS) Other Paternal Cousin Social History Tobacco Use Smoking status: Never Smokeless tobacco: Never Vaping Use Vaping status: Never Used Substance Use Topics Alcohol use: No Drug use: No ASSESSMENT/PLAN: 1. URI, acute - ICD9: 465.9, ICD10: J06.9 - COVID & INFLUENZA A/B & RSV PCR, ROUTINE - OSELTAMIVIR 75 MG CAPSULE If Flu comes back negative have her stop the Tamiflu. Prescription instructions reviewed with patient as applicable. Potential red flag symptoms discussed with the patient. Reviewed appropriate action plan to take if red flag symptoms occur. Patient agreeable to treatment plan. Leonard Mayes APRN.CORPORATE REPRESENTATIVE documented in this encounterOhio [facility]01-28-2025 NoteHNO ID: [id number] Author: TIA HECK LPN Service: ? Author Type: LICENSED NURSE Type: Progress Notes Filed: 07/22/2024 11:46 Note Text: Patient presents for assistance placing Zio monitor. Given all instructions for wear. All questions answered at this time and pt verbalized understanding. Applied monitor at this time with no issues. [facility] History of Present illness Narrative* Tia Heck LPN - 07/22/2024 11:37 AM EST Patient presents for assistance placing Zio monitor. Given all instructions for wear. All questionsanswered at this time and pt verbalized understanding. Applied monitor at this time with no issues. Tia Heck LPN documented in this encounterOhio State [facility]ing Hospital01-27-2025 Telephone encounter Note * Telephone Encounter - Melani Adler RN - 07/21/2024 5:53 PM EST Pt scheduled with Tia to place Zio monitor. Pt told to make sure to bring with her. [facility]01-27-[facility] Miscellaneous Notes* Telephone Encounter - Melani Adler RN - 07/21/2024 5:53 PM EST Pt scheduled with Tia to place Zio monitor. Pt told to make sure to bring with her. * Telephone Encounter - Crystal Valentine APRN.CNP - 07/21/2024 5:28 PM EST Aron, Can we set up to place monitor? Crystal Valentine APRN.MAGDALENA * Telephone Encounter - Elizabeth Moody LPN - 07/21/2024 4:53 PM EST Pt calls to report she received the Zio in the mail. Pt reports she thought provider advised pt shecould schedule an appt with the office or someone to help put the Zio on to make sure it was done correctly. Pt would like to know who she is supposed to schedule with. Elizabeth Moody LPN documented in this encounterOhio State [facility]ing Hospital01-27-2025 Telephone encounter Note * Telephone Encounter - Crystal Valentine APRN.CORPORATE REPRESENTATIVE - 07/21/2024 5:28 PM EST Aron, Can we set up to place monitor? Crystal Valentine APRN.CORPORATE REPRESENTATIVE [facility] Work Phone: [phone]) 401-492401-27-2025 Telephone encounter Note* Telephone Encounter - Elizabeth Moody LPN - 07/21/2024 4:53 PM EST Pt calls to report she received the Zio in the mail. Pt reports she thought provider advised pt shecould schedule an appt with the office or someone to help put the Zio on to make sure it was done correctly. Pt would like to know who she is supposed to schedule with. Elizabeth Moody LPN [facility]01-24-2025 Telephone encounter Note* Telephone Encounter - Aron Jacob LPN - 07/18/2024 4:45 PM EST Pt notified. She verbalized understanding. Results faxed to Dr. Montes's office . [facility]01-24-2025 Miscellaneous Notes* Telephone Encounter - Aron Jacob LPN - 07/18/2024 4:45 PM EST Pt notified. She verbalized understanding. Results faxed to Dr. Montes's office . * Telephone Encounter - Crystal Valentine APRN.CNP - 07/18/2024 4:20 PM EST Can please let patient know that we received her labs. Her vitamin D was a little low. Is she taking any vitamin D? If not, I would suggest that she starttaking 2000 units daily to help boost this up. Her TSH was a little on the low side (hyperactive side or getting too much medication). 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 Please let us know if she would like us to fax the results to her grocery store associate. All the other labwork looked within normal/stable. Crystal Valentine APRN.CNP documented in this encounterOhio State Harding Hospital01-24-2025 Telephone encounter Note * Telephone Encounter - Crystal Valentine APRN.CNP - 07/18/2024 4:20 PM EST Can please let patient know that we received her labs. Her vitamin D was a little low. Is she taking any vitamin D? If not, I would suggest that she starttaking 2000 units daily to help boost this up. Her TSH was a little on the low side (hyperactive side or getting too much medication). 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 Please let us know if she would like us to fax the results to her grocery store associate. All the other labwork looked within normal/stable. Crystal Valentine APRN.CNP [facility] Work Phone: [phone] 166-598801-22-2025 Telephone encounter Note* Telephone Encounter - Aron Jacob LPN - 07/16/2024 1:14 PM EST Zio form completed with note for zio to be mailed to pt. Form faxed. Aron Jacob LPN [facility]01-22-2025 Miscellaneous Notes* Telephone Encounter - Aron Jacob LPN - 07/16/2024 1:14 PM EST Zio form completed with note for zio to be mailed to pt. Form faxed. Aron Jacob LPN * Telephone Encounter - Crystal Valentine APRN.CNP - 07/16/2024 1:02 PM EST Order placed. Can we please make sure she is sent a zio? Crystal Valentine APRN.CNP * Telephone Encounter - Trini Meehan RN - 07/16/2024 12:49 PM EST Patient calls and states that she checked with zio coverage and she is covered for this. Patient asking if order can be placed so she can receive this in mail? Please review and advise, Trini Meehan RN documented in this encounterOhio State [facility]ing Hospital01-22-2025 Telephone encounter Note * Telephone Encounter - Crystal Valentine APRN.CNP - 07/16/2024 1:02 PM EST Order placed. Can we please make sure she is sent a zio? Crystal Valentine APRN.CNP [facility]01-22-2025 Telephone encounter Note* Telephone Encounter - Trini Meehan RN - 07/16/2024 12:49 PM EST Patient calls and states that she checked with zio coverage and she is covered for this. Patient asking if order can be placed so she can receive this in mail? Please review and advise, Trini Meehan RN [facility]01-21-2025 Instructions* Patient Instructions* Crystal Valentine APRN.CNP - 07/15/2024 3:40 PM EST Get the labwork done. Schedule the stress test. Let us know about the zio coverage. Increase water intake. If you get sustained chest discomfort or palpitations -- proceed to the ER. documented in this encounterOhio State Harding Hospital01-21-2025 NoteHNO ID: [id number] Author: CRYSTAL VALENTINE APRN.CNP Service: ? Author Type: Nurse Practitioner Type: Progress Notes Filed: 07/15/2024 16:08 Note Text: This is a 48 year old female who presents today with: Patient presents with: Palpitations: HISTORY OF PRESENT ILLNESS: September Quan is a 48 year old female. Patient presents with: Palpitations: Pt presents today d/t increased heart rate. Refers that she wears a fitbit. Refers that it is telling her it is out of range. Resting heart rate typically averaging in the 70's. However she has been getting spikes that are going up to the 130's. Was alerted to notify her provider if it was 30 beats higher than average. No real palpitations, but gets anxiety. No chest pain, but gets pressure and will have increased burping to relieve pressure. No heartburn/indigestion. Doesn't seem food triggered. Father had CT in 40's. Cousin had CT. Has noticed that she will gets some dizziness with position changes. Drinks 1-2 caffeinated beverages a day. Admits to not much water. Weighs herself every morning. Gained two pounds over night last night. [place] like legs are more swollen than normal. Hx of anemia. Tried oral iron, but vomited within 15 minutes of taking it. Tried a different liver supplement, but had a weight gain associated with that, so she stopped. Perimenopausal with irregular periods. Refers periods are heavy and will need to change every couple of hours. Passes large clots. 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 Back in the summer, had an episode of generalized weakness and pain. Had to mentally think through tasks to be able to to complete them. Happened after a period of stress. PAST MEDICAL HISTORY: PAST MEDICAL HISTORY Diagnosis Date Heel spur left foot menorrhagia PCOS (polycystic ovarian syndrome) Plantar fasciitis of left foot Thyroid nodule Tinea of nail 03/28/2018 03/28/18: [email or web address] PAST SURGICAL HISTORY Procedure Laterality Date DELIVERY ONLY , low cervical DELIVERY ONLY , low cervical DELIVERY ONLY , low transverse PAST SURGICAL HISTORY OF 2012 partial thyroidectomy TX MISSED FIRST TRIMESTER SURGICAL 01/12/06 missed US GUIDED THYROID BIOPSY 06/2012 ALLERGIES Amoxicillin, Chlorhexidine, and Penicillins MEDICATIONS Current Outpatient Medications Medication Sig iron/vit B comp/liver extract ([id number] ORAL) Take by mouth. with folate ARMOUR THYROID 60 mg Take 60 mg by mouth once daily. levothyroxine (SYNTHROID) 25 mcg tablet Take 25 mcg by mouth every other day. No current facility-administered medications for this visit. FAMILY HISTORY Problem Relation Age of Onset Diabetes Father Heart Father TRIPLE BYPASS Cancer Father PANCREATIC Breast Cancer Maternal Grandmother Diabetes Maternal Grandmother Cancer Maternal Grandfather STOMACH CANCER Cancer Paternal Grandmother OVARIAN/UTERINE Heart Paternal Grandfather other (LUPUS) Maternal Aunt Cancer Other cousin (fa's side) melanoma dx 2006 Cancer Other GAUNT WITH BLADDER CANCCER other (Sjogren's Disease) Other Maternal cousin other (Brain Cancer) Other other (PCOS) Daughter other (PCOS) Other Paternal Cousin Social History Tobacco Use Smoking status: Never Smokeless tobacco: Never Vaping Use Vaping status: Never Used Substance Use Topics Alcohol use: No Drug use: No EXAM: BP 123/87 Pulse 100 Resp 16 LMP 09/20/2022 (Exact Date) SpO2 100% PHYSICAL EXAM: General Appearance: Well appearing, alert, in no acute distress, well-hydrated, well nourished.. Skin: Skin color, texture, turgor normal, no suspicious rashes or lesions. Head: Normocephalic, no masses, lesions, tenderness or abnormalities. Eyes: Anicteric sclera. Pupils are equally round and reactive to light. Extraocular movements are intact. Lungs: Lungs clear to auscultation. No wheezing, rhonchi, rales.. Heart: RRR without murmur, gallop, or rubs. No ectopy. Abdomen: Abdomen soft, non-tender. Bowel sounds normal. No masses, organomegaly. Extremities: No deformities, edema, skin discoloration, clubbing or cyanosis. Good capillary refill. Neurologic: Gait normal. ASSESSMENT/PLAN: 1. Chest pressure - ICD9: 786.59, ICD10: R07.89 (primary diagnosis) Chest pain of unclear etiology, patient with significant risk factor(s) of family history of early coronary heart disease - Electrocardiogram: SR without ectopy or ST changes. - STRESS ECHO TREADMILL - PERFLUTREN LIPID MICROSPHERES 1.1 MG/ML INJECTION IN NS 10 ML - SODIUM CHLORIDE 0.9 % (FLUSH) INJECTION SYRINGE D/t family hx, reported change in heart rate, increase gastrointestinal symptoms in female, will go ahead and proceed with stress testing. 2. Tachycardia - ICD9: 785.0, ICD10: R00.0 Will get labs. R/o thyroid and anemia s (more content not included)...[facility]01-21-2025 History of Present illness Narrative* Crystal Valentine, DOT.CORPORATE REPRESENTATIVE - 07/15/2024 3:07 PM EST This is a 48 year old female who presents today with: Patient presents with: Palpitations: HISTORY OF PRESENT ILLNESS: September Quan is a 48 year old female. Patient presents with: Palpitations: Pt presents today d/t increased heart rate. Refers that she wears a fitbit. Refers that it is telling her it is out of range. Resting heart rate typically averaging in the 70's. However she has been getting spikes that are going up to the 130's. Was alerted to notify her provider if it was 30 beats higher than average. No real palpitations, but gets anxiety. No chest pain, but gets pressure and will have increased burping to relieve pressure. No heartburn/indigestion. Doesn't seem food triggered. Father had CT in 40's. Cousin had CT. Has noticed that she will gets some dizziness with position changes. Drinks 1-2 caffeinated beverages a day. Admits to not much water. Weighs herself every morning. Gained two pounds over night last night. [place] like legs are more swollen than normal. Hx of anemia. Tried oral iron, but vomited within 15 minutes of taking it. Tried a different liver supplement, but had a weight gain associated with that, so she stopped. Perimenopausal with irregular periods. Refers periods are heavy and will need to change every couple of hours. Passes large clots. 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 Back in the summer, had an episode of generalized weakness and pain. Had to mentally think through tasks to be able to to complete them. Happened after a period of stress. PAST MEDICAL HISTORY: PAST MEDICAL HISTORY Diagnosis Date Heel spur left foot menorrhagia PCOS (polycystic ovarian syndrome) Plantar fasciitis of left foot Thyroid nodule Tinea of nail 03/28/2018 03/28/18: [email or web address] PAST SURGICAL HISTORY Procedure Laterality Date DELIVERY ONLY , low cervical DELIVERY ONLY , low cervical DELIVERY ONLY , low transverse PAST SURGICAL HISTORY OF 2012 partial thyroidectomy TX MISSED FIRST TRIMESTER SURGICAL 01/12/06 missed US GUIDED THYROID BIOPSY 06/2012 ALLERGIES Amoxicillin, Chlorhexidine, and Penicillins MEDICATIONS Current Outpatient Medications Medication Sig iron/vit B comp/liver extract ([id number] ORAL) Take by mouth. with folate ARMOUR THYROID 60 mg Take 60 mg by mouth once daily. levothyroxine (SYNTHROID) 25 mcg tablet Take 25 mcg by mouth every other day. No current facility-administered medications for this visit. FAMILY HISTORY Problem Relation Age of Onset Diabetes Father Heart Father TRIPLE BYPASS Cancer Father PANCREATIC Breast Cancer Maternal Grandmother Diabetes Maternal Grandmother Cancer Maternal Grandfather STOMACH CANCER Cancer Paternal Grandmother OVARIAN/UTERINE Heart Paternal Grandfather other (LUPUS) Maternal Aunt Cancer Other cousin (fa's side) melanoma dx 2006 Cancer Other GAUNT WITH BLADDER CANCCER other (Sjogren's Disease) Other Maternal cousin other (Brain Cancer) Other other (PCOS) Daughter other (PCOS) Other Paternal Cousin Social History Tobacco Use Smoking status: Never Smokeless tobacco: Never Vaping Use Vaping status: Never Used Substance Use Topics Alcohol use: No Drug use: No EXAM: BP 123/87 Pulse 100 Resp 16 LMP 09/20/2022 (Exact Date) SpO2 100% PHYSICAL EXAM: General Appearance: Well appearing, alert, in no acute distress, well-hydrated, well nourished.. Skin: Skin color, texture, turgor normal, no suspicious rashes or lesions. Head: Normocephalic, no masses, lesions, tenderness or abnormalities. Eyes: Anicteric sclera. Pupils are equally round and reactive to light. Extraocular movements are intact. Lungs: Lungs clear to auscultation. No wheezing, rhonchi, rales.. Heart: RRR without murmur, gallop, or rubs. No ectopy. Abdomen: Abdomen soft, non-tender. Bowel sounds normal. No masses, organomegaly. Extremities: No deformities, edema, skin discoloration, clubbing or cyanosis. Good capillary refill. Neurologic: Gait normal. ASSESSMENT/PLAN: 1. Chest pressure - ICD9: 786.59, ICD10: R07.89 (primary diagnosis) Chest pain of unclear etiology, patient with significant risk factor(s) of family history of early coronary heart disease - Electrocardiogram: SR without ectopy or ST changes. - STRESS ECHO TREADMILL - PERFLUTREN LIPID MICROSPHERES 1.1 MG/ML INJECTION IN NS 10 ML - SODIUM CHLORIDE 0.9 % (FLUSH) INJECTION SYRINGE D/t family hx, reported change in heart rate, increase gastrointestinal symptoms in female, will goahead and proceed with stress testing. 2. Tachycardia - ICD9: 785.0, ICD10: R00.0 Will get labs. R/o thyroid and anemia source. Encouraged to increase water intake. - COMPLETE BLOOD COUNT AND DIFFERENTIAL - COMPREHENSIVE METABOLIC PANEL - THYROID STIMULATING HORMONE - T4 FREE/FREE THYROXINE - T3 - FERRITIN - IRON AND TIBC - ECG COMPLETE - VITAMIN D 25 HYDROXY - LIPID PANEL, NONFASTING - STRESS ECHO TREADMILL - PERFLUTREN LIPID MICROSPHERES 1.1 MG/ML INJECTION IN NS 10 ML - SODIUM CHLORIDE 0.9 % (FLUSH) INJECTION SYRINGE Discussed treatment plan and patient voices understanding. Patient's questions answered appropriately. Medications and potential side effects were discussed and patient voices understanding. Return to the office as scheduled or as needed for worsening/no improvement. Crystal Valentine APRN.CORPORATE REPRESENTATIVE documented in this encounterOhio State [facility]ing Hospital01-21-2025 Telephone encounter Note * Telephone Encounter - Anny Jarvis RN - 07/15/2024 10:18 AM [facility] Pt with h/o thyroid issues so protocol recommends pt be seen within 3 days. Pt seems to have a lot of vague symptoms. Booked for an appt today with Crystal Valentine at 3 pm. Pt refers to her Fit Bit telling her most of the heart rate changes. Asked pt if she didn't have her watch on, would she noticeany heart rate changes. Pt states she thinks so but not sure. Reason for Disposition History of hyperthyroidism or taking thyroid medication Answer Assessment - Initial Assessment Questions 1. DESCRIPTION: Please describe your heart rate or heartbeat that you are having (e.g., fast/slow, regular/irregular, skipped or extra beats, palpitations) Pt states her Fit Bit watch has been letting her know that her heart rate goes out of her normal range. Pt states today when she got out of bed, her heart rate jumped up 35 beats. She states she readthat normal is 10-20 beats and if over 30, you should contact your doctor. She states this has beengoing on for about a week or so. States her normal HR was in the 70's and it is now in the 80's. Den ies feeling any irregular beats. States sometimes she does feel like it is racing but can't give a HR. 2. ONSET: a week ago 3. DURATION: varies 4. PATTERN varies 5. TAP: n/a 6. HEART RATE: per watch it has been in the 80s 7. RECURRENT SYMPTOM: denies 8. CAUSE: Pt states that Dr. Dickson says she may have POTS. 9. CARDIAC HISTORY: denies 10. OTHER SYMPTOMS: Pt has been feeling stressed and anxious. Denies SOB. Pt states feels chest tightness off and on but notices that when she burps that goes away. States she has been burping a lot more than normal. Also pt states she weighs herself every day and between yesterday and today, shegained 2#. She feels maybe her calves are swollen but her fingers do not leave baig. Denies that her ankles are swollen. 11. : n/a Protocols used: Heart Rate and Heartbeat [id number] [facility]01-21-2025 Miscellaneous Notes* Telephone Encounter - Anny Jarvis, RN - 07/15/2024 10:18 AM EST Pt with h/o thyroid issues so protocol recommends pt be seen within 3 days. Pt seems to have a lot of vague symptoms. Booked for an appt today with Crystal Valentine at 3 pm. Pt refers to her Fit Bit telling her most of the heart rate changes. Asked pt if she didn't have her watch on, would she noticeany heart rate changes. Pt states she thinks so but not sure. Reason for Disposition History of hyperthyroidism or taking thyroid medication Answer Assessment - Initial Assessment Questions 1. DESCRIPTION: Please describe your heart rate or heartbeat that you are having (e.g., fast/slow, regular/irregular, skipped or extra beats, palpitations) Pt states her Fit Bit watch has been letting her know that her heart rate goes out of her normal range. Pt states today when she got out of bed, her heart rate jumped up 35 beats. She states she readthat normal is 10-20 beats and if over 30, you should contact your doctor. She states this has beengoing on for about a week or so. States her normal HR was in the 70's and it is now in the 80's. Den ies feeling any irregular beats. States sometimes she does feel like it is racing but can't give a HR. 2. ONSET: a week ago 3. DURATION: varies 4. PATTERN varies 5. TAP: n/a 6. HEART RATE: per watch it has been in the 80s 7. RECURRENT SYMPTOM: denies 8. CAUSE: Pt states that Dr. Dickson says she may have POTS. 9. CARDIAC HISTORY: denies 10. OTHER SYMPTOMS: Pt has been feeling stressed and anxious. Denies SOB. Pt states feels chest tightness off and on but notices that when she burps that goes away. States she has been burping a lot more than normal. Also pt states she weighs herself every day and between yesterday and today, shegained 2#. She feels maybe her calves are swollen but her fingers do not leave baig. Denies that her ankles are swollen. 11. : n/a Protocols used: Heart Rate and Heartbeat [id number] documented in this encounterOhio State [facility]ing Hospital11-27-2024 History of Present illness Narrative* Jacob Torres Mammo Tech - 05/21/2024 4:00 PM EST Radiology Service Progress Note PATIENT NAME: Galilea Glass DATE OF SERVICE: May 21, 2024 TIME: 4:19 PM PATIENT IDENTITY VERIFICATION COMPLETED USING TWO (2) IDENTIFIERS: Name and Date of confirmedby patient verbally. FALL SCREENING: Has the patient had 2 falls in the last year or 1 fall with injury or currently using an Ambulatory Assistive Device (Walker, Cane, Wheelchair, Crutches, etc.)? No PATIENT GENDER DATA: Female. status: : No status: NO. PATIENT RELEVANT IMPLANT DATA REVIEWED: Not Applicable PATIENT PRESENTS WITH AN IMPLANTABLE OR ATTACHED CORRECTIONAL COOK: No RADIOLOGY DEPARTMENT: Mammography PERIPHERAL IV DATA: Not applicable SIGNED BY: Jacob Murrieta May 21, 2024 4:19 PM documented in this encounterOhio State Harding Hospital11-27-2024 NoteHNO ID: [id number] Author: JACOB TORRES Mammo Tech Service: ? Author Type: Technologist Type: Progress Notes Filed: 05/21/2024 16:19 Note Text: Radiology Service Progress Note PATIENT NAME: Galilea Glass DATE OF SERVICE: May 21, 2024 TIME: 4:19 PM PATIENT IDENTITY VERIFICATION COMPLETED USING TWO (2) IDENTIFIERS: Name and Date of confirmed by patient verbally. FALL SCREENING: Has the patient had 2 falls in the last year or 1 fall with injury or currently using an Ambulatory Assistive Device (Walker, Cane, Wheelchair, Crutches, etc.)? No PATIENT GENDER DATA: Female. status: : No status: NO. PATIENT RELEVANT IMPLANT DATA REVIEWED: Not Applicable PATIENT PRESENTS WITH AN IMPLANTABLE OR ATTACHED CORRECTIONAL COOK: No RADIOLOGY DEPARTMENT: Mammography PERIPHERAL IV DATA: Not applicable SIGNED BY: Jacob Murrieta May 21, 2024 4:19 [place] [id number] Telephone encounter Note* Telephone Encounter - Jazmyne Coleman RN - 05/14/2024 4:22 PM EST Order linked to upcoming appointment. Jazmyne Coleman RN [facility]11-20-2024 Miscellaneous Notes* Telephone Encounter - Jamzyne Coleman RN - 05/14/2024 4:22 PM EST Order linked to upcoming appointment. Jazmyne Coleman RN * Telephone Encounter - Farhana Frausto MD - 05/14/2024 4:17 PM EST ordered * Telephone Encounter - Hemalatha Lord - 05/14/2024 2:20 PM EST Current order incorrect, last mammogram was ordered with JAE. Please link pended order once signed to appointment scheduled on 05/21/24. documented in this encounterOhio State [facility]ing Hospital11-20-2024 Telephone encounter Note * Telephone Encounter - Farhana Frausto MD - 05/14/2024 4:17 PM EST ordered [facility] Work Phone: 1(671) 587-757811-20-2024 Telephone encounter Note* Telephone Encounter - Hemalatha Lord - 05/14/2024 2:20 PM EST Current order incorrect, last mammogram was ordered with JAE. Please link pended order once signed to appointment scheduled on 05/21/24. [facility]09-[facility] Telephone encounter Note* Telephone Encounter - Zofia Delvalle MA - 03/04/2024 1:32 PM EDT Order completed 03/01/24. Will close TE at this time. Zofia Delvalle MA [place] [facility]09-10-2024 Miscellaneous Notes* Telephone Encounter - Zofia Delvalle MA - 03/04/2024 1:32 PM EDT Order completed 03/01/24. Will close TE at this time. 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 Some of the results are not correct because of hemolysis. Hoping to have order faxed to Dr Escobar mak so she can have redone tomorrow. 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 Some of the results are not correct because of hemolysis. Hoping to have order faxed to Dr Escobar mak so she can have redone tomorrow. [facility]07-10-2024 Telephone encounter Note* Telephone Encounter - Sweta Kaur LPN - 01/02/2024 8:38 AM EDT Phoned patient and went over results, notes from Dr Cody with understanding. [facility]07-10-2024 Miscellaneous Notes* Telephone Encounter - Sweta Kaur LPN - 01/02/2024 8:38 AM EDT Phoned patient and went over results, notes from Dr Cody with understanding. * Telephone Encounter - Milton Cody MD - 01/02/2024 8:07 AM EDT Duplex just shows varicose veins . No clots. documented in this encounterOhio [facility] Telephone encounter Note * Telephone Encounter - Milton Cody MD - 01/02/2024 8:07 AM EDT Duplex just shows varicose veins . No clots. [facility]07-01-2024 History of Present illness Narrative* Efe Nelson RT(R) - 12/24/2023 7:10 PM EDT Radiology Service Progress Note PATIENT NAME: September Quan DATE OF SERVICE: December 24, 2023 TIME: 7:03 PM PATIENT IDENTITY VERIFICATION COMPLETED USING TWO (2) IDENTIFIERS: Name and Date of confirmedby patient verbally. FALL SCREENING: Has the patient had 2 falls in the last year or 1 fall with injury or currently using an Ambulatory Assistive Device (Walker, Cane, Wheelchair, Crutches, etc.)? No PATIENT GENDER DATA: Female. status: : No status: NO. PATIENT RELEVANT IMPLANT DATA REVIEWED: Not Applicable PATIENT PRESENTS WITH AN IMPLANTABLE OR ATTACHED CORRECTIONAL COOK: No RADIOLOGY DEPARTMENT: General X-ray: Exam(s) Completed: Lower Extremity X- Ray(s): Ankle, Left and Wt. Bearing PERIPHERAL IV DATA: Not applicable SIGNED BY: RT Jordy(Raffi) December 24, 2023 7:03 PM documented in this encounterOhio State [facility]ing Hospital07-01-2024 NoteHNO ID: [id number] Author: EFE NELSON RT(R) Service: Radiology Author Type: Technologist Type: Progress Notes Filed: 12/24/2023 19:18 Note Text: Radiology Service Progress Note PATIENT NAME: Galilea Glass DATE OF SERVICE: December 24, 2023 TIME: 7:03 PM PATIENT IDENTITY VERIFICATION COMPLETED USING TWO (2) IDENTIFIERS: Name and Date of confirmed by patient verbally. FALL SCREENING: Has the patient had 2 falls in the last year or 1 fall with injury or currently using an Ambulatory Assistive Device (Walker, Cane, Wheelchair, Crutches, etc.)? No PATIENT GENDER DATA: Female. status: : No status: NO. PATIENT RELEVANT IMPLANT DATA REVIEWED: Not Applicable PATIENT PRESENTS WITH AN IMPLANTABLE OR ATTACHED CORRECTIONAL COOK: No RADIOLOGY DEPARTMENT: General X-ray: Exam(s) Completed: Lower Extremity X-Ray(s): Ankle, Left and Wt. Bearing PERIPHERAL IV DATA: Not applicable SIGNED BY: RT Jordy(R) December 24, 2023 7:03 [facility]07-01-2024 History of Present illness Narrative* Milton Cody MD - 12/24/2023 6:33 PM EDT Patient presents with: Ankle Pain: Left. Has some swelling at times. Hurts worse when she is up on it more. HPI: Patient presents today for office visit for follow up. Has had a varicose vein that has bothered her dating back at least until 2016 from when she saw . Is worse when on it for a long time. She states most of it has been that way for several years. Has discomfort in the ankle to the arch as well. Had a callus on her big toe from the way she walks as well. No redness or warmth. No injury. Resting it feels ok. Swells as well. No calf pain. MEDICATIONS: Current Outpatient Medications Medication Sig iron/vit B comp/liver extract ([id number] ORAL) Take by mouth. with folate trimethoprim-polymyxin (POLYTRIM) 10,000 unit- 1 mg/mL ophthalmic solution Use 1 Drop in the right eye four times daily for 7 days. ARMOUR THYROID 60 mg Take 60 mg by mouth once daily. levothyroxine (SYNTHROID) 25 mcg tablet Take 25 mcg by mouth every other day. No current facility-administered medications for this visit. ALLERGIES: ALLERGIES Allergen Reactions Amoxicillin Hives Chlorhexidine Rash Pt had extensive rash and itching after receiving this as a skin preparation prior to C Section 08/06/07 Penicillins Hives PAST MEDICAL HISTORY Diagnosis Date Heel spur left foot menorrhagia PCOS (polycystic ovarian syndrome) Plantar fasciitis of left foot Thyroid nodule Tinea of nail 03/28/2018 03/28/18: [email or web address] PAST SURGICAL HISTORY Procedure Laterality Date DELIVERY ONLY , low cervical DELIVERY ONLY , low cervical DELIVERY ONLY , low transverse PAST SURGICAL HISTORY OF 2012 partial thyroidectomy [place] MISSED FIRST TRIMESTER SURGICAL 01/12/06 missed US GUIDED THYROID BIOPSY 06/2012 FAMILY HISTORY Problem Relation Age of Onset Diabetes Father Heart Father TRIPLE BYPASS Cancer Father PANCREATIC Breast Cancer Maternal Grandmother Diabetes Maternal Grandmother Cancer Maternal Grandfather STOMACH CANCER Cancer Paternal Grandmother OVARIAN/UTERINE Heart Paternal Grandfather other (LUPUS) Maternal Aunt Cancer Other cousin (fa's side) melanoma dx 2006 Cancer Other GAUNT WITH BLADDER CANCCER other (Sjogren's Disease) Other Maternal cousin other (Brain Cancer) Other other (PCOS) Daughter other (PCOS) Other Paternal Cousin Social History Tobacco Use Smoking status: Never Smokeless tobacco: Never Vaping Use Vaping Use: Never used Substance Use Topics Alcohol use: No Drug use: No Reviewed current medications, allergies, past medical history, surgical history, family history andsocial history today. REVIEW OF SYSTEMS No chest pain or shortness of breath. All other reviewed and negative other than HPI. VITALS: BP 114/72 Pulse 98 Wt 93.4 kg (206 lb) LMP 09/20/2022 (Exact Date) SpO2 97% BMI 37.68 kg/m Last 4 Encounter Wt Readings: Date: Wt: 12/24/2023 93.4 kg (206 lb) 12/22/2023 93.6 kg (206 lb 5.6 oz) 07/27/2023 91.2 kg (201 lb) 10/18/2022 88.9 kg (196 lb) PHYSICAL EXAMINATION: General appearance: Well appearing, alert, in no acute distress, well-hydrated, well nourished. Skin: Skin color, texture, turgor normal, no suspicious rashes or lesions Extremities: trace edema of ankle. Neg drawer. No redness or warmth. No calf tenderness. Neg shabana's Some discomfort with testing range of motion. Slight varicosity. ASSESSMENT/PLAN: 1. Chronic pain of left ankle - ICD9: 719.47, 338.29, ICD10: M25.572, G89.29 (primary diagnosis) - may consider podiatry. - XR ANKLE GENERAL 3V AP/LAT/OBL LEFT 2. Varicose veins of left lower extremity, unspecified whether complicated - ICD9: 454.9, ICD10: I83.92 - see vascular and do us. Red flags for re-assessment reviewed with patient in detail. Consider support hose. - US LEG VEIN DVT UNL VAS LAB - CONSULT TO VASCULAR SURGERY Milton Cody MD documented in this encounterOhio State [facility]07-01-2024 NoteHNO ID: [id number] Author: MILTON CODY MD Service: ? Author Type: Physician Type: Progress Notes Filed: 12/24/2023 18:46 Note Text: Patient presents with: Ankle Pain: Left. Has some swelling at times. Hurts worse when she is up on it more. HPI: Patient presents today for office visit for follow up. Has had a varicose vein that has bothered her dating back at least until 2016 from when she saw Dr. Iverson. Is worse when on it for a long time. She states most of it has been that way for several years. Has discomfort in the ankle to the arch as well. Had a callus on her big toe from the way she walks as well. No redness or warmth. No injury. Resting it feels ok. Swells as well. No calf pain. MEDICATIONS: Current Outpatient Medications Medication Sig iron/vit B comp/liver extract ([id number] ORAL) Take by mouth. with folate trimethoprim-polymyxin (POLYTRIM) 10,000 unit- 1 mg/mL ophthalmic solution Use 1 Drop in the right eye four times daily for 7 days. ARMOUR THYROID 60 mg Take 60 mg by mouth once daily. levothyroxine (SYNTHROID) 25 mcg tablet Take 25 mcg by mouth every other day. No current facility-administered medications for this visit. ALLERGIES: ALLERGIES Allergen Reactions Amoxicillin Hives Chlorhexidine Rash Pt had extensive rash and itching after receiving this as a skin preparation prior to C Section 08/06/07 Penicillins Hives PAST MEDICAL HISTORY Diagnosis Date Heel spur left foot menorrhagia PCOS (polycystic ovarian syndrome) Plantar fasciitis of left foot Thyroid nodule Tinea of nail 03/28/2018 03/28/18: [email or web address] PAST SURGICAL HISTORY Procedure Laterality Date DELIVERY ONLY , low cervical DELIVERY ONLY , low cervical DELIVERY ONLY , low transverse PAST SURGICAL HISTORY OF 2012 partial thyroidectomy [place] MISSED FIRST TRIMESTER SURGICAL 01/12/06 missed US GUIDED THYROID BIOPSY 06/2012 FAMILY HISTORY Problem Relation Age of Onset Diabetes Father Heart Father TRIPLE BYPASS Cancer Father PANCREATIC Breast Cancer Maternal Grandmother Diabetes Maternal Grandmother Cancer Maternal Grandfather STOMACH CANCER Cancer Paternal Grandmother OVARIAN/UTERINE Heart Paternal Grandfather other (LUPUS) Maternal Aunt Cancer Other cousin (fa's side) melanoma dx 2006 Cancer Other GAUNT WITH BLADDER CANCCER other (Sjogren's Disease) Other Maternal cousin other (Brain Cancer) Other other (PCOS) Daughter other (PCOS) Other Paternal Cousin Social History Tobacco Use Smoking status: Never Smokeless tobacco: Never Vaping Use Vaping Use: Never used Substance Use Topics Alcohol use: No Drug use: No Reviewed current medications, allergies, past medical history, surgical history, family history and social history today. REVIEW OF SYSTEMS No chest pain or shortness of breath. All other reviewed and negative other than HPI. VITALS: BP 114/72 Pulse 98 Wt 93.4 kg (206 lb) LMP 09/20/2022 (Exact Date) SpO2 97% BMI 37.68 kg/m? Last 4 Encounter Wt Readings: Date: Wt: 12/24/2023 93.4 kg (206 lb) 12/22/2023 93.6 kg (206 lb 5.6 oz) 07/27/2023 91.2 kg (201 lb) 10/18/2022 88.9 kg (196 lb) PHYSICAL EXAMINATION: General appearance: Well appearing, alert, in no acute distress, well-hydrated, well nourished. Skin: Skin color, texture, turgor normal, no suspicious rashes or lesions Extremities: trace edema of ankle. Neg drawer. No redness or warmth. No calf tenderness. Neg shabana's Some discomfort with testing range of motion. Slight varicosity. ASSESSMENT/PLAN: 1. Chronic pain of left ankle - ICD9: 719.47, 338.29, ICD10: M25.572, G89.29 (primary diagnosis) - may consider podiatry. - XR ANKLE GENERAL 3V AP/LAT/OBL LEFT 2. Varicose veins of left lower extremity, unspecified whether complicated - ICD9: 454.9, ICD10: I83.92 - see vascular and do us. Red flags for re-assessment reviewed with patient in detail. Consider support hose. - US LEG VEIN DVT UNL VAS LAB - CONSULT TO VASCULAR SURGERY Milton Cody, [facility]07-01-2024 Telephone encounter Note * Telephone Encounter - Anna Casanova LPN - 12/24/2023 9:19 AM EDT patient calling c/o of left ankle/foot swollen, painful and just getting worse at the inside of theankle. This problem has been going for 1-2 years but worse now. Pain scale 1/10 sitting, walking 3/10 pain scale. Patient is requesting an appointment to be evaluated. appt made for 6:20pm Anna Casanova LPN [facility]07-01-2024 Miscellaneous Notes* Telephone Encounter - Anna Casanova LPN - 12/24/2023 9:19 AM EDT patient calling c/o of left ankle/foot swollen, painful and just getting worse at the inside of theankle. This problem has been going for 1-2 years but worse now. Pain scale 1/10 sitting, walking 3/10 pain scale. Patient is requesting an appointment to be evaluated. appt made for 6:20pm Anna Casanova LPN documented in this encounterOhio State [facility] Hospital06-29-2024 NoteHNO ID: [id number] Author: YUNG JOSEPH APRN.CORPORATE REPRESENTATIVE Service: ? Author Type: Nurse Practitioner Type: Progress Notes Filed: 12/22/2023 12:35 Note Text: Subjective HPI HPI September Quan is a 48 year old female who presents today for CC of right eye redness, drainage. This started 1 day ago. Has tried nothing for relief. Symptoms are worsened by nothing. Risk factors family member with pink eye currently, wears contact lenses. .Patient presents with: Eye Problem: right eye redness and matting x 1 day PAST MEDICAL HISTORY Diagnosis Date Heel spur left foot menorrhagia PCOS (polycystic ovarian syndrome) Plantar fasciitis of left foot Thyroid nodule Tinea of nail 03/28/2018 03/28/18: [email or web address] PAST SURGICAL HISTORY Procedure Laterality Date DELIVERY ONLY , low cervical DELIVERY ONLY , low cervical DELIVERY ONLY , low transverse PAST SURGICAL HISTORY OF 2012 partial thyroidectomy [place] MISSED FIRST TRIMESTER SURGICAL 01/12/06 missed US GUIDED THYROID BIOPSY 06/2012 ALLERGIES Amoxicillin, Chlorhexidine, and Penicillins MEDICATIONS ARMOUR THYROID 60 mg Take 60 mg by mouth once daily. levothyroxine (SYNTHROID) 25 mcg tablet Take 25 mcg by mouth every other day. iron/vit B comp/liver extract ([id number] ORAL) Take by mouth. with folate trimethoprim-polymyxin (POLYTRIM) 10,000 unit- 1 mg/mL ophthalmic solution Use 1 Drop in the right eye four times daily for 7 days. FAMILY HISTORY Problem Relation Age of Onset Diabetes Father Heart Father TRIPLE BYPASS Cancer Father PANCREATIC Breast Cancer Maternal Grandmother Diabetes Maternal Grandmother Cancer Maternal Grandfather STOMACH CANCER Cancer Paternal Grandmother OVARIAN/UTERINE Heart Paternal Grandfather other (LUPUS) Maternal Aunt Cancer Other cousin (fa's side) melanoma dx 2007 Cancer Other GAUNT WITH BLADDER CANCCER other (Sjogren's Disease) Other Maternal cousin other (Brain Cancer) Other other (PCOS) Daughter other (PCOS) Other Paternal Cousin Social History Tobacco Use Smoking status: Never Smokeless tobacco: Never Vaping Use Vaping Use: Never used Substance Use Topics Alcohol use: No Drug use: No Review of Systems Constitutional: Negative for chills and fever. HENT: Negative for ear discharge, ear pain and sore throat. Eyes: Positive for discharge and redness. Negative for blurred vision, double vision, photophobia and pain. Neurological: Negative for headaches. Objective Physical Exam Constitutional: General: She is not in acute distress. Appearance: She is not toxic-appearing. HENT: Right Ear: Hearing, tympanic membrane and external ear normal. Left Ear: Hearing, tympanic membrane, ear canal and external ear normal. Nose: No mucosal edema. Mouth/Throat: Pharynx: Uvula midline. Eyes: General: Right eye: Discharge present. Left eye: No discharge. Conjunctiva/sclera: Right eye: Right conjunctiva is injected. Left eye: Left conjunctiva is not injected. Lymphadenopathy: Cervical: Right cervical: No superficial cervical adenopathy. Left cervical: No superficial cervical adenopathy. Comments: No cervical lymphadenopathy bilaterally Neurological: Mental Status: She is oriented to person, place, and time. ASSESSMENT/PLAN: 1. Bacterial conjunctivitis - ICD9: 372.39, 041.9, ICD10: H10.9 Bacterial - see medication orders - course and contagiousness issues discussed, including hand washing. - Instructed to call if high fever, development of periorbital redness or swelling, eye pain, visual changes, concerns or if symptoms persist. - POLYMYXIN B SULFATE 10,000 UNIT-TRIMETHOPRIM 1 MG/ML EYE DROPS Yung Jospeh APRN.[facility]06-29-2024 History of Present illness Narrative* Yung Joseph APRN.[facility] - 12/22/2023 12:34 PM EDT Subjective HPI HPI September Quan is a 48 year old female who presents today for CC of right eye redness, drainage. This started 1 day ago. Has tried nothing for relief. Symptoms are worsened by nothing. Risk factors family member with pink eye currently, wears contact lenses. .Patient presents with: Eye Problem: right eye redness and matting x 1 day PAST MEDICAL HISTORY Diagnosis Date Heel spur left foot menorrhagia PCOS (polycystic ovarian syndrome) Plantar fasciitis of left foot Thyroid nodule Tinea of nail 03/28/2018 03/28/18: [email or web address] PAST SURGICAL HISTORY Procedure Laterality Date DELIVERY ONLY , low cervical DELIVERY ONLY , low cervical DELIVERY ONLY , low transverse PAST SURGICAL HISTORY OF 2012 partial thyroidectomy [place] MISSED FIRST TRIMESTER SURGICAL 01/12/06 missed US GUIDED THYROID BIOPSY 06/2012 ALLERGIES Amoxicillin, Chlorhexidine, and Penicillins MEDICATIONS ARMOUR THYROID 60 mg Take 60 mg by mouth once daily. levothyroxine (SYNTHROID) 25 mcg tablet Take 25 mcg by mouth every other day. iron/vit B comp/liver extract ([id number] ORAL) Take by mouth. with folate trimethoprim-polymyxin (POLYTRIM) 10,000 unit- 1 mg/mL ophthalmic solution Use 1 Drop in the right eye four times daily for 7 days. FAMILY HISTORY Problem Relation Age of Onset Diabetes Father Heart Father TRIPLE BYPASS Cancer Father PANCREATIC Breast Cancer Maternal Grandmother Diabetes Maternal Grandmother Cancer Maternal Grandfather STOMACH CANCER Cancer Paternal Grandmother OVARIAN/UTERINE Heart Paternal Grandfather other (LUPUS) Maternal Aunt Cancer Other cousin (fa's side) melanoma dx 2006 Cancer Other GAUNT WITH BLADDER CANCCER other (Sjogren's Disease) Other Maternal cousin other (Brain Cancer) Other other (PCOS) Daughter other (PCOS) Other Paternal Cousin Social History Tobacco Use Smoking status: Never Smokeless tobacco: Never Vaping Use Vaping Use: Never used Substance Use Topics Alcohol use: No Drug use: No Review of Systems Constitutional: Negative for chills and fever. HENT: Negative for ear discharge, ear pain and sore throat. Eyes: Positive for discharge and redness. Negative for blurred vision, double vision, photophobia and pain. Neurological: Negative for headaches. Objective Physical Exam Constitutional: General: She is not in acute distress. Appearance: She is not toxic-appearing. HENT: Right Ear: Hearing, tympanic membrane and external ear normal. Left Ear: Hearing, tympanic membrane, ear canal and external ear normal. Nose: No mucosal edema. Mouth/Throat: Pharynx: Uvula midline. Eyes: General: Right eye: Discharge present. Left eye: No discharge. Conjunctiva/sclera: Right eye: Right conjunctiva is injected. Left eye: Left conjunctiva is not injected. Lymphadenopathy: Cervical: Right cervical: No superficial cervical adenopathy. Left cervical: No superficial cervical adenopathy. Comments: No cervical lymphadenopathy bilaterally Neurological: Mental Status: She is oriented to person, place, and time. ASSESSMENT/PLAN: 1. Bacterial conjunctivitis - ICD9: 372.39, 041.9, ICD10: H10.9 Bacterial - see medication orders - course and contagiousness issues discussed, including hand washing. - Instructed to call if high fever, development of periorbital redness or swelling, eye pain, visual changes, concerns or if symptoms persist. - POLYMYXIN B SULFATE 10,000 UNIT-TRIMETHOPRIM 1 MG/ML EYE DROPS Yung Joseph APRN.CORPORATE REPRESENTATIVE documented in this encounterOhio [facility]06-29-2024 Telephone encounter Note * Telephone Encounter - Aicha Brennan RN - 12/22/2023 10:13 AM EDT Patient calling with concern for redness in right eye x 2 days. Disposition: See PCP within 3 days. Patient says she will come in to [facility] today. Reason for Disposition [1] Only 1 eye is red AND [2] present > 48 hours Answer Assessment - Initial Assessment Questions 1. LOCATION: Location: redness in right eye 2. REDNESS OF SCLERA: one eye 3. ONSET: started yesterday 4. EYELIDS: bottom lid slightly red 5. VISION: denies vision changes. Did have some blurriness when she put her contact lens in yesterday. She says she put the contact in with eye drainage. 6. ITCHING: mild itchiness/feeling of dryness 7. PAIN: Denies pain 8. CONTACT LENS: Yes 9. CAUSE: possible pink eye, daughter has pink eye 10. OTHER SYMPTOMS: Denies headache, pussy drainage, change in vision, vomiting, eye pain Protocols used: Eye - Red Without [id number] [facility]06-29-2024 Miscellaneous Notes* Telephone Encounter - Aicha Brennan RN - 12/22/2023 10:13 AM EDT Patient calling with concern for redness in right eye x 2 days. Disposition: See PCP within 3 days. Patient says she will come in to EC today. Reason for Disposition [1] Only 1 eye is red AND [2] present > 48 hours Answer Assessment - Initial Assessment Questions 1. LOCATION: Location: redness in right eye 2. REDNESS OF SCLERA: one eye 3. ONSET: started yesterday 4. EYELIDS: bottom lid slightly red 5. VISION: denies vision changes. Did have some blurriness when she put her contact lens in yesterday. She says she put the contact in with eye drainage. 6. ITCHING: mild itchiness/feeling of dryness 7. PAIN: Denies pain 8. CONTACT LENS: Yes 9. CAUSE: possible pink eye, daughter has pink eye 10. OTHER SYMPTOMS: Denies headache, pussy drainage, change in vision, vomiting, eye pain Protocols used: Eye - Red Without [id number] documented in this encounterOhio State [facility]ing Hospital02-05-2024 Miscellaneous Notes* Telephone Encounter - Jazmyne Gamez - 07/30/2023 1:11 PM EST Patient informed and verbalized understanding. She mentioned a vitamin D level was also discussed at visit but order was never placed. Pended. Jazmyne Gamez * Telephone Encounter - Milton Cody MD - 07/30/2023 12:46 PM EST Labs are stable. Her fsh and lh which usually indicate menopause are ok. Her estrogen level howeveris low. Lets recheck the estrogen in a few weeks to see if it comes up and also her red cells are small which can go with iron loss. Let me check her iron. documented in this encounterOhio [facility] Hospital02-02-2024 History of Present illness Narrative* Milton Cody MD - 07/27/2023 4:04 PM EST Patient presents with: Hypothyroidism HPI: Patient presents today for office visit for weight gain, fatigue, and muscle aches X 1.5 months. Mentions having two periods back to back. Started cycle on 07/12/23-07/16/23. Bleeding stopped completely. Started bleeding again 9 days later. On day 3 of starting again. Has fatigue and muscle aches. Hx of PCOS. Over the past month has noticed she's gained weight. 10lb increase in 4 weeks. Loses a lot of hair. Mentions not having any eyebrow hair. No hot flashes. Does get some facial flushing. Around her cheeks. Some caffeine in am etc. Has eczema issues in her elbows. Continues on [place] thyroid 60mg daily and levothyroxine 25 mcg every other day. Last TSH 6 months ago. Not taking her metformin. Was taking ashwagonda. Stopped that recently. Declines test. Feels there is no chance of snoring. Unsure if snores Tosses and turns. Sleep is erratic. Discussed considering seeing strip machine operator. No chest pain or shortness of breath. Some edema on and off Sone stress. Component Latest Ref Rng & Units 02/16/2023 TSH 0.270 - 4.200 mIU/L 0.577 Free T3 2.3 - 4.1 pg/mL 2.5 Free T4 0.9 - 1.7 ng/dL 0.9 MEDICATIONS: Current Outpatient Medications Medication Sig ARMOUR THYROID 60 mg Take 60 mg by mouth once daily. levothyroxine (SYNTHROID) 25 mcg tablet Take 25 mcg by mouth every other day. No current facility-administered medications for this visit. ALLERGIES: ALLERGIES Allergen Reactions Amoxicillin Hives Chlorhexidine Rash Pt had extensive rash and itching after receiving this as a skin preparation prior to C Section 08/06/07 Penicillins Hives PAST MEDICAL HISTORY Diagnosis Date Heel spur left foot menorrhagia PCOS (polycystic ovarian syndrome) Plantar fasciitis of left foot Thyroid nodule Tinea of nail 03/28/2018 03/28/18: [email or web address] PAST SURGICAL HISTORY Procedure Laterality Date DELIVERY ONLY , low cervical DELIVERY ONLY , low cervical DELIVERY ONLY , low transverse PAST SURGICAL HISTORY OF 2012 partial thyroidectomy [place] MISSED FIRST TRIMESTER SURGICAL 01/12/06 missed US GUIDED THYROID BIOPSY 06/2012 FAMILY HISTORY Problem Relation Age of Onset Diabetes Father Heart Father TRIPLE BYPASS Cancer Father PANCREATIC Breast Cancer Maternal Grandmother Diabetes Maternal Grandmother Cancer Maternal Grandfather STOMACH CANCER Cancer Paternal Grandmother OVARIAN/UTERINE Heart Paternal Grandfather other (LUPUS) Maternal Aunt Cancer Other cousin (fa's side) melanoma dx 2006 Cancer Other GAUNT WITH BLADDER CANCCER other (Sjogren's Disease) Other Maternal cousin other (Brain Cancer) Other other (PCOS) Daughter other (PCOS) Other Paternal Cousin Social History Tobacco Use Smoking status: Never Smokeless tobacco: Never Vaping Use Vaping Use: Never used Substance Use Topics Alcohol use: No Drug use: No Reviewed current medications, allergies, past medical history, surgical history, family history andsocial history today. REVIEW OF SYSTEMS All other reviewed and negative other than HPI. VITALS: BP 126/88 Pulse 83 Ht 157.5 cm (5' 2) Wt 91.2 kg (201 lb) LMP 09/20/2022 (Exact Date) SpO2 96% BMI 36.76 kg/m Last 4 Encounter Wt Readings: Date: Wt: 10/18/2022 88.9 kg (196 lb) 09/20/2022 88.9 kg (196 lb) 07/25/2022 87.4 kg (192 lb 9.6 oz) 05/22/2022 85.7 kg (189 lb) PHYSICAL EXAMINATION: General appearance: Well appearing, alert, in no acute distress, well-hydrated, well nourished. Skin: some mild rosacea on cheeks. Not a definite butterfly rash. Head: Normocephalic, no masses, lesions, tenderness or abnormalities Lungs: Lungs clear to auscultation. No wheezing, rhonchi, rales Heart: RRR without murmur, gallop, or rubs. No ectopy Abdomen: Normal abdominal exam, Abdomen soft, non-tender. Bowel sounds normal. No masses, organomegaly Extremities: No deformities, edema, skin discoloration, clubbing or cyanosis. Good capillary refill. No joint swelling or deformity. ASSESSMENT/PLAN: 1. Fatigue, unspecified type - ICD9: 780.79, ICD10: R53.83 (primary diagnosis) - consider sleep study. Start with labs. Follow progress. - TSH BLD - T4 FREE/FREE THYROX - T3 FREE BLD 2. Postoperative hypothyroidism - ICD9: 244.0, ICD10: E89.0 - TSH BLD - T4 FREE/FREE THYROX - T3 FREE BLD 3. PCOS (polycystic ovarian syndrome) - ICD9: 256.4, ICD10: E28.2 - CBC + DIFF - COMP METABOLIC PANEL - HGB A1C 4. Arthralgia, unspecified joint - ICD9: 719.40, ICD10: M25.50 - SED RATE WESTERGREN - C-REACTIVE PROTEIN (CRP) - ION BY IFA SCREEN - RHEUMATOID FACTOR BL 5. Hot flashes - ICD9: 782.62, ICD10: R23.2 - ESTRADIOL-17B BLD - FSH BLD - LUTEINIZING HORMONE Milton Cody MD documented in this encounter[facility] Miscellaneous Notes* Letter - Coordinator, Mammography - 05/10/2023 9:39 AM EST May 10, 2023 PID: [id number] Galilea Glass [address] [place] [address] Dear Ms. Glass, We are pleased to inform you that the results of your recent breast imaging exam on 05/09/2023 are normal. Early detection of cancer is very important. We also understand recommendations regarding breast cancer screening are controversial. Please discuss with your primary care provider which strategy is best for you and whether a mammogram is right for you. Your imaging studies and report will be kept on file at [facility] as part of your permanent medical record and are available for your continuing care. Thank you for allowing us to help in meeting your health care needs. Sincerely, Dr. Marrero Interpreting Radiologist [facility] (Normal over 40) documented in this encounterOhio State [facility]ing [facility]04-26-2023 History of Present illness Narrative* Milton Cody MD - 10/18/2022 1:29 PM EDT Patient presents with: Follow Up HPI: Patient presents today for office visit for 1 month follow up. Saw Dermatology this morning for itchy patches on inside of elbows. Dx with Eczema. Given cream forit. Has not had flushing in her face since last visit. Still fatigued. Her daughter had a baby last week so that may cause some changes. Endo changed her armour to every day. They changed Levothroid changes. Discussed hormones. Moods ae doing well. No chest pain or shortness of breath. Has had a lot of stress. See previous ov: Has been experiencing extreme fatigue over the last month. Starting to get somewhat better since starting a multivitamin. Has had a 6lb-8lb increase in weight in the past 3 months. Nothing has changed with diet. Does not exercise. Has a lot of hair loss. Flushing in face X 1 month. Itchy patches on inside of elbows. Used OTC cream (unsure of name). Can't tolerate the oral iron. Just picked up a multivitamin with iron. 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 Does not necessarily feel a hot flash. Notices some flushing on her face periodically. Also had a rash in her olecranon fossa bilaterally for a week. Was slightly scaly. No sore throat or fever. No changes in soaps or detergent. Her daughter did have mono. Rash Is pretty much better. Started in August. No swollen glands No changes in meds. No chest pain No shortness of breath. Did have some episodes of stomach discomfort and belching. Lasted a few days. No cough or congestion. Discussed calorie restriction and weight loss Component Latest Ref Rng & Units 09/20/2022 WBC 3.70 - 11.00 k/uL 7.13 RBC 3.90 - 5.20 m/uL 4.86 Hemoglobin 11.5 - 15.5 g/dL 13.0 Hematocrit 36.0 - 46.0 % 40.7 MCV 80.0 - 100.0 fL 83.7 MCH 26.0 - 34.0 pg 26.7 MCHC 30.5 - 36.0 g/dL 31.9 RDW-CV 11.5 - 15.0 % 13.3 Platelet Count 150 - 400 k/uL 305 MPV 9.0 - 12.7 fL 10.7 Neut% % 66.3 Abs Neut (ANC) 1.45 - 7.50 k/uL 4.72 Lymph% % 25.2 Abs Lymph 1.00 - 4.00 k/uL 1.80 Stanley% % 6.2 Abs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 CHOLEDOCHOLELITHIASIS W/SUSPECTED CHOLAN GITIS August 31, 2024 11:34am CHOLEDOCHOLELITHIASIS W/SUSPECTED CHOLAN GITIS September 01, 2024 8:05am CHOLEDOCHOLELITHIASIS W/SUSPECTED CHOLAN GITIS September 01, 2024 10:49am CHOLEDOCHOLELITHIASIS W/SUSPECTED CHOLAN GITIS September 02, 2024 10:02am CHOLEDOCHOLELITHIASIS W/SUSPECTED CHOLAN GITIS September 02, 2024 11:05am LAP DO 3-9 September 10, 2024 12: 31pm S/P SUBTOTAL CHOLECYSTECTOMY September 17, 2024 7:44am DRAIN REMOVAL September 19, 2024 1:1 6pm Reason for Visit Admit Date Ascending cholangitis August 29, 2024 6: 22pm Choledocholithiasis August 29, 2024 6:22 pm Cholelithiasis August 29, 2024 6:22 pm Hepatic lesion August 29, 2024 6:22 pm Obstructive jaundice August 29, 2024 6:2 2pm Liver lesion, right lobe September 10 12:31pm Oral thrush September 10, 2024 12: 31pm S/P cholecystectomy September 10, 2024 12: 31pm S/P cholecystectomy September 19, 2024 1:1 6pm Chief Complaint Admit Date CHOLEDOCHOLELITHIASIS W/SUSPECTED CHOLAN GITIS August 29, 2024 6:22pm ERCP August 29, 2024 6:32 pm CHOLEDOCHOLELITHIASIS W/SUSPECTED CHOLAN GITIS August 29, 2024 7:25pm CHOLEDOCHOLELITHIASIS W/SUSPECTED CHOLAN GITIS August 30, 2024 7:58am CHOLEDOCHOLELITHIASIS W/SUSPECTED CHOLAN GITIS August 30, 2024 8:00am CHOLEDOCHOLELITHIASIS W/SUSPECTED CHOLAN GITIS August 31, 2024 7:37am CHOLEDOCHOLELITHIASIS W/SUSPECTED CHOLAN GITIS August 31, 2024 11:34am CHOLEDOCHOLELITHIASIS W/SUSPECTED CHOLAN GITIS September 01, 2024 8:05am CHOLEDOCHOLELITHIASIS W/SUSPECTED CHOLAN GITIS September 01, 2024 10:49am CHOLEDOCHOLELITHIASIS W/SUSPECTED CHOLAN GITIS September 02, 2024 10:02am CHOLEDOCHOLELITHIASIS W/SUSPECTED CHOLAN GITIS September 02, 2024 11:05am LAP DO 3-9 September 10, 2024 12: 31pm S/P SUBTOTAL CHOLECYSTECTOMY September 17, 2024 7:44am DRAIN REMOVAL September 19, 2024 1:1 6pm S/P GALLBLADDER September 26, 2024 8:02 am Reason for Visit Admit Date Ascending cholangitis August 29, 2024 6: 22pm Choledocholithiasis August 29, 2024 6:22 pm Cholelithiasis August 29, 2024 6:22 pm Hepatic lesion August 29, 2024 6:22 pm Obstructive jaundice August 29, 2024 6:2 2pm Liver lesion, right lobe September 10 12:31pm Oral thrush September 10, 2024 12: 31pm S/P cholecystectomy September 10, 2024 12: 31pm S/P cholecystectomy September 19, 2024 1:1 6pm S/P cholecystectomy September 26, 2024 8:02 am Ascending cholangitis November 10, 2024 11: 11am Family History Relationship Condition Age at Onset Recorded Date/T lucero Not Specified Diabetes mellitus Unknown Cardiac disease Unknown Malignant neoplasm Unknown Hypertension Unknown Reason for Referral Specialty Diagnoses / Procedures Referred By Brandon t Referred To Contact Vascular Surgery Diagnoses Varicose veins of left lower extremity, unspecified whether complicated Procedures CONSULT TO VASCULAR SURGERY OFFICE/OUTPATIENT [facility] 60 MINUTES Milton Cody MD [address] [place] [address] Referral ID Status Reason Start Date Expiration Date Visits Requested Visits Authorized [id number] Authorized PCP Requested Referral 12/24/2023 12/23/2024 1 1 Specialty Diagnoses / Procedures Referred By Contac t Referred To Contact [facility] Diagnoses Varicose veins of left lower extremity, unspecified whether complicated Procedures US LEG VEIN DVT UNL VAS LAB DUP-SCAN XTR VEINS UNILATERAL/LIMITED STUDY Milton Cody MD [address] [place] [address] [facility] [address] [place] [address] Referral ID Status Reason Start Date Expiration Date Visits Requested Visits Authorized [id number] Authorized Auto-Generat ed Referral 12/24/2023 12/23/2024 1 1 Specialty Diagnoses / Procedures Referred By Contac t Referred To Contact XR IMAGING Diagnoses Chronic pain of left ankle Procedures XR ANKLE GENERAL 3V AP/LAT/OBL LEFT RADEX ANKLE COMPLETE MINIMUM 3 VIEWS Milton Cody MD [address] [place] [address] [place] [id number] Referral ID Status Reason Start Date Expiration Date V isits Requested Visits Authorized [id number] Closed Auto-Generate d Referral 12/24/2023 01/22/2025 1 1 Advance Directives Advance Directive Response Recorded Date/ Time Living Will No August 29, 2024 3:31pm Power of Heavy Forger No August 29 3:31pm Advance Directive Response Recorded Date/ Time Living Will No August 30, 2024 12:54am Power of Heavy Forger No August 30 12:54am Advance Directive Response Recorded Date/ Time Living Will No August 30, 2024 12:54am Do you have a Healthcare Power of Heavy Forger? No August 30, 2024 12:54am Advance Directive Response Recorded Date/ Time Do you have a Healthcare Power of Heavy Forger? No November 06, 2024 3:18pm Living Will No August 30, 2024 12:54am Do you have a Healthcare Power of Heavy Forger? No August 30, 2024 12:54am Summary Purpose Additional Source Comments Source Comments (unrecognize d section and content) In the event this informatio n is protected by the Federal Confidentiality of Alcohol and Drug Abuse Patient Records regulations: The Federal rules restrict any use of the information to criminally investigate or prosecute any alcohol or drug abuse patient.[facility] the event this information is protected by the Federal Confidentiality of Alcohol and Drug Abuse Patient Records regulations: The Federal rules restrict any use of the information to criminally investigate or prosecute any alcohol or drug abuse patient.[facility] HospitalIn the event this information is protected by the Federal Confidentiality of Alcohol and Drug Abuse Patient Records regulations: The Federal rules restrict any use of the information to criminally investigate or prosecute any alcohol or drug abuse patient.[facility] HospitalIn the event this information is protected by the Federal Confidentiality of Alcohol and Drug Abuse Patient Records regulations: The Federal rules restrict any use of the information to criminally investigate or prosecute any alcohol or drug abuse patient.[facility] HospitalIn the event this information is protected by the Federal Confidentiality of Alcohol and Drug Abuse Patient Records regulations: The Federal rules restrict any use of the information to criminally investigate or prosecute any alcohol or drug abuse patient.[facility] HospitalIn the event this information is protected by the Federal Confidentiality of Alcohol and Drug Abuse Patient Records regulations: The Federal rules restrict any use of the information to criminally investigate or prosecute any alcohol or drug abuse patient.[facility] HospitalIn the event this information is protected by the Federal Confidentiality of Alcohol and Drug Abuse Patient Records regulations: The Federal rules restrict any use of the information to criminally investigate or prosecute any alcohol or drug abuse patient.[facility] HospitalIn the event this information is protected by the Federal Confidentiality of Alcohol and Drug Abuse Patient Records regulations: The Federal rules restrict any use of the information to criminally investigate or prosecute any alcohol or drug abuse patient.[facility] HospitalIn the event this information is protected by the Federal Confidentiality of Alcohol and Drug Abuse Patient Records regulations: The Federal rules restrict any use of the information to criminally investigate or prosecute any alcohol or drug abuse patient.[facility] HospitalIn the event this information is protected by the Federal Confidentiality of Alcohol and Drug Abuse Patient Records regulations: The Federal rules restrict any use of the information to criminally investigate or prosecute any alcohol or drug abuse patient.[facility] HospitalIn the event this information is protected by the Federal Confidentiality of Alcohol and Drug Abuse Patient Records regulations: The Federal rules restrict any use of the information to criminally investigate or prosecute any alcohol or drug abuse patient.[facility] HospitalIn the event this information is protected by the Federal Confidentiality of Alcohol and Drug Abuse Patient Records regulations: The Federal rules restrict any use of the information to criminally investigate or prosecute any alcohol or drug abuse patient.[facility] HospitalIn the event this information is protected by the Federal Confidentiality of Alcohol and Drug Abuse Patient Records regulations: The Federal rules restrict any use of the information to criminally investigate or prosecute any alcohol or drug abuse patient.[facility] HospitalIn the event this information is protected by the Federal Confidentiality of Alcohol and Drug Abuse Patient Records regulations: The Federal rules restrict any use of the information to criminally investigate or prosecute any alcohol or drug abuse patient.[facility] HospitalIn the event this information is protected by the Federal Confidentiality of Alcohol and Drug Abuse Patient Records regulations: The Federal rules restrict any use of the information to criminally investigate or prosecute any alcohol or drug abuse patient.[facility] HospitalIn the event this information is protected by the Federal Confidentiality of Alcohol and Drug Abuse Patient Records regulations: The Federal rules restrict any use of the information to criminally investigate or prosecute any alcohol or drug abuse patient.[facility] HospitalIn the event this information is protected by the Federal Confidentiality of Alcohol and Drug Abuse Patient Records regulations: The Federal rules restrict any use of the information to criminally investigate or prosecute any alcohol or drug abuse patient.[facility] HospitalIn the event this information is protected by the Federal Confidentiality of Alcohol and Drug Abuse Patient Records regulations: The Federal rules restrict any use of the information to criminally investigate or prosecute any alcohol or drug abuse patient.[facility] HospitalIn the event this information is protected by the Federal Confidentiality of Alcohol and Drug Abuse Patient Records regulations: The Federal rules restrict any use of the information to criminally investigate or prosecute any alcohol or drug abuse patient.[facility] HospitalIn the event this information is protected by the Federal Confidentiality of Alcohol and Drug Abuse Patient Records regulations: The Federal rules restrict any use of the information to criminally investigate or prosecute any alcohol or drug abuse patient.[facility] HospitalIn the event this information is protected by the Federal Confidentiality of Alcohol and Drug Abuse Patient Records regulations: The Federal rules restrict any use of the information to criminally investigate or prosecute any alcohol or drug abuse patient.[facility] HospitalIn the event this information is protected by the Federal Confidentiality of Alcohol and Drug Abuse Patient Records regulations: The Federal rules restrict any use of the information to criminally investigate or prosecute any alcohol or drug abuse patient.[facility] HospitalIn the event this information is protected by the Federal Confidentiality of Alcohol and Drug Abuse Patient Records regulations: The Federal rules restrict any use of the information to criminally investigate or prosecute any alcohol or drug abuse patient.[facility] HospitalIn the event this information is protected by the Federal Confidentiality of Alcohol and Drug Abuse Patient Records regulations: The Federal rules restrict any use of the information to criminally investigate or prosecute any alcohol or drug abuse patient.[facility] HospitalIn the event this information is protected by the Federal Confidentiality of Alcohol and Drug Abuse Patient Records regulations: The Federal rules restrict any use of the information to criminally investigate or prosecute any alcohol or drug abuse patient.[facility] HospitalIn the event this information is protected by the Federal Confidentiality of Alcohol and Drug Abuse Patient Records regulations: The Federal rules restrict any use of the information to criminally investigate or prosecute any alcohol or drug abuse patient.[facility] HospitalIn the event this information is protected by the Federal Confidentiality of Alcohol and Drug Abuse Patient Records regulations: The Federal rules restrict any use of the information to criminally investigate or prosecute any alcohol or drug abuse patient.[facility] HospitalIn the event this information is protected by the Federal Confidentiality of Alcohol and Drug Abuse Patient Records regulations: The Federal rules restrict any use of the information to criminally investigate or prosecute any alcohol or drug abuse patient.[facility] HospitalIn the event this information is protected by the Federal Confidentiality of Alcohol and Drug Abuse Patient Records regulations: The Federal rules restrict any use of the information to criminally investigate or prosecute any alcohol or drug abuse patient.[facility] HospitalIn the event this information is protected by the Federal Confidentiality of Alcohol and Drug Abuse Patient Records regulations: The Federal rules restrict any use of the information to criminally investigate or prosecute any alcohol or drug abuse patient.[facility] HospitalIn the event this information is protected by the Federal Confidentiality of Alcohol and Drug Abuse Patient Records regulations: The Federal rules restrict any use of the information to criminally investigate or prosecute any alcohol or drug abuse patient.[facility] HospitalIn the event this information is protected by the Federal Confidentiality of Alcohol and Drug Abuse Patient Records regulations: The Federal rules restrict any use of the information to criminally investigate or prosecute any alcohol or drug abuse patient.[facility] HospitalIn the event this information is protected by the Federal Confidentiality of Alcohol and Drug Abuse Patient Records regulations: The Federal rules restrict any use of the information to criminally investigate or prosecute any alcohol or drug abuse patient.[facility] HospitalIn the event this information is protected by the Federal Confidentiality of Alcohol and Drug Abuse Patient Records regulations: The Federal rules restrict any use of the information to criminally investigate or prosecute any alcohol or drug abuse patient.[facility] HospitalIn the event this information is protected by the Federal Confidentiality of Alcohol and Drug Abuse Patient Records regulations: The Federal rules restrict any use of the information to criminally investigate or prosecute any alcohol or drug abuse patient.[facility] HospitalIn the event this information is protected by the Federal Confidentiality of Alcohol and Drug Abuse Patient Records regulations: The Federal rules restrict any use of the information to criminally investigate or prosecute any alcohol or drug abuse patient.[facility] HospitalIn the event this information is protected by the Federal Confidentiality of Alcohol and Drug Abuse Patient Records regulations: The Federal rules restrict any use of the information to criminally investigate or prosecute any alcohol or drug abuse patient.[facility] HospitalIn the event this information is protected by the Federal Confidentiality of Alcohol and Drug Abuse Patient Records regulations: The Federal rules restrict any use of the information to criminally investigate or prosecute any alcohol or drug abuse patient.[facility] HospitalIn the event this information is protected by the Federal Confidentiality of Alcohol and Drug Abuse Patient Records regulations: The Federal rules restrict any use of the information to criminally investigate or prosecute any alcohol or drug abuse patient.[facility] HospitalIn the event this information is protected by the Federal Confidentiality of Alcohol and Drug Abuse Patient Records regulations: The Federal rules restrict any use of the information to criminally investigate or prosecute any alcohol or drug abuse patient.[facility] HospitalIn the event this information is protected by the Federal Confidentiality of Alcohol and Drug Abuse Patient Records regulations: The Federal rules restrict any use of the information to criminally investigate or prosecute any alcohol or drug abuse patient.[facility] HospitalIn the event this information is protected by the Federal Confidentiality of Alcohol and Drug Abuse Patient Records regulations: The Federal rules restrict any use of the information to criminally investigate or prosecute any alcohol or drug abuse patient.[facility] HospitalIn the event this information is protected by the Federal Confidentiality of Alcohol and Drug Abuse Patient Records regulations: The Federal rules restrict any use of the information to criminally investigate or prosecute any alcohol or drug abuse patient.[facility] the event this information is protected by the Federal Confidentiality of Alcohol and Drug Abuse Patient Records regulations: The Federal rules restrict any use of the information to criminally investigate or prosecute any alcohol or drug abuse patient.[facility] HospitalIn the event this information is protected by the Federal Confidentiality of Alcohol and Drug Abuse Patient Records regulations: The Federal rules restrict any use of the information to criminally investigate or prosecute any alcohol or drug abuse patient.[facility] the event this information is protected by the Federal Confidentiality of Alcohol and Drug Abuse Patient Records regulations: The Federal rules restrict any use of the information to criminally investigate or prosecute any alcohol or drug abuse patient.[facility] the event this information is protected by the Federal Confidentiality of Alcohol and Drug Abuse Patient Records regulations: The Federal rules restrict any use of the information to criminally investigate or prosecute any alcohol or drug abuse patient.[facility] HospitalIn the event this information is protected by the Federal Confidentiality of Alcohol and Drug Abuse Patient Records regulations: The Federal rules restrict any use of the information to criminally investigate or prosecute any alcohol or drug abuse patient.[facility] Hospital[facility] the event this information is protected by the Federal Confidentiality of Alcohol and Drug Abuse Patient Records regulations: The Federal rules restrict any use of the information to criminally investigate or prosecute any alcohol or drug abuse patient.[facility] Hospital[facility] the event this information is protected by the Federal Confidentiality of Alcohol and Drug Abuse Patient Records regulations: The Federal rules restrict any use of the information to criminally investigate or prosecute any alcohol or drug abuse patient.[facility] Care Teams (unrecognized sec tion and content) Team Status: Active Member Role Status Dates Dr. Milton Cody MD Primary Care Provider Active Team Status: Inactive Member Role Status Dates Dr. Milton Cody MD Primary Care Provider Active Start: August 29, 2024 End: September 02, 2024 Dr. Scot Gonzalez DO Emergency Provider Active Start : August 29, 2024 End: September 02, 2024 Dr. Paolo Waller DO Referring Provider Active Start: August 29, 2024 End: September 02, 2024 Dr. Spencer La , DO Admit Provider Active Start: August 29, 2024 End: September 02, 2024 Dr. Spencer La DO Attending Provider Active Start: August 29, 2024 End: September 02, 2024 Dr. Spencer La DO Other Provider Active Start: August 29, 2024 End: September 02, 2024 Dr. Deacon Burgos MD Other Provider Active Sta rt: August 29, 2024 End: September 02, 2024 Dr. Jonathan Plata MD Other Provider Active Star t: August 29, 2024 End: September 02, 2024 Team Status: Active Member Role Status Dates Dr. Milton Cody MD Primary Care Provider Active Start: August 29, 2024 Dr. Scot Gonzalez DO Emergency Provider Active Start : August 29, 2024 Dr. Paolo Waller DO Attending Provider Active Start: August 29, 2024 Dr. Paolo Waller DO Other Provider Active St art: August 29, 2024 Dr. Spencer La DO Referring Provider Active Start: August 29, 2024 Team Status: Active Member Role Status Dates Dr. Milton Cody MD Primary Care Provider Active Start: August 29, 2024 Dr. Scot Gonzalez DO Emergency Provider Active Start : August 29, 2024 Dr. Paolo Waller DO Referring Provider Active Start: August 29, 2024 Dr. Spencer La DO Admit Provider Active Start: August 29, 2024 Dr. Spencer La DO Other Provider Active Start: August 29, 2024 Dr. Deacon Burgos MD Attending Provider Active Start: August 29, 2024 Team Status: Active Member Role Status Dates Dr. Milton Cody MD Primary Care Provider Active Start: August 30, 2024 Dr. Scot Gonzalez DO Emergency Provider Active Start : August 30, 2024 Dr. Spencer La DO Admit Provider Active Start: August 30, 2024 Dr. Spencer La DO Other Provider Active Start: August 30, 2024 Dr. Deacon Burgos MD Other Provider Active Sta rt: August 30, 2024 Dr. Jonathan Plata MD Attending Provider Active Start: August 30, 2024 Dr. Jonathan Plata MD Other Provider Active Star t: August 30, 2024 Team Status: Active Member Role Status Dates Dr. Milton Cody MD Primary Care Provider Active Start: August 30, 2024 Dr. Scot Gonzalez DO Emergency Provider Active Start : August 30, 2024 Dr. Paolo Waller DO Referring Provider Active Start: August 30, 2024 Dr. Spencer La , Admit Provider Active Start: August 30, 2024 Dr. Spencer La DO Other Provider Active Start: August 30, 2024 Dr. Deacon Burgos MD Attending Provider Active Start: August 30, 2024 Dr. Deacon Brugos MD Other Provider Active Sta rt: August 30, 2024 Dr. Jonathan Plata MD Other Provider Active Star t: August 30, 2024 Team Status: Active Member Role Status Dates Dr. Milton Cody MD Primary Care Provider Active Start: August 31, 2024 Dr. Scot Gonzalez DO Emergency Provider Active Start : August 31, 2024 Dr. Paolo Waller DO Referring Provider Active Start: August 31, 2024 Dr. Spencer La DO Admit Provider Active Start: August 31, 2024 Dr. Spencer La DO Other Provider Active Start: August 31, 2024 Dr. Deacon Burgos MD Other Provider Active Sta rt: August 31, 2024 Dr. Jonathan Plata MD Attending Provider Active Start: August 31, 2024 Dr. Jonathan Plata MD Other Provider Active Star t: August 31, 2024 Team Status: Active Member Role Status Dates Dr. Milton Cody MD Primary Care Provider Active Start: August 31, 2024 Dr. Scot Gonzalez DO Emergency Provider Active Start : August 31, 2024 Dr. Paolo Waller DO Referring Provider Active Start: August 31, 2024 Dr. Spencer La DO Admit Provider Active Start: August 31, 2024 Dr. Spencer La DO Other Provider Active Start: August 31, 2024 Dr. Deacon Burgos MD Attending Provider Active Start: August 31, 2024 Dr. Deacon Burgos MD Other Provider Active Sta rt: August 31, 2024 Dr. Jonathan Plata MD Other Provider Active Star t: August 31, 2024 Team Status: Active Member Role Status Dates Dr. Milton Cody MD Primary Care Provider Active Start: September 01, 2024 Dr. Scot Gonzalez DO Emergency Provider Active Start : September 01, 2024 Dr. Paolo Waller DO Referring Provider Active Start: September 01, 2024 Dr. Spencer La DO Admit Provider Active Start: September 01, 2024 Dr. Spencer La DO Other Provider Active Start: September 01, 2024 Dr. Deacon Burgos MD Other Provider Active Sta rt: September 01, 2024 Dr. Jonathan Plata MD Attending Provider Active Start: September 01, 2024 Dr. Jonathan Plata MD Other Provider Active Star t: September 01, 2024 Team Status: Active Member Role Status Dates Dr. Milton Cody MD Primary Care Provider Active Start: September 01, 2024 Dr. Scot Gonzalez DO Emergency Provider Active Start : September 01, 2024 Dr. Paolo Waller DO Referring Provider Active Start: September 01, 2024 Dr. Spencer La DO Admit Provider Active Start: September 01, 2024 Dr. Specner La DO Other Provider Active Start: September 01, 2024 Dr. Deacon Burgos MD Other Provider Active Sta rt: September 01, 2024 Dr. Jonathan Plata MD Other Provider Active Star t: September 01, 2024 Melani MAGDALENO PA-C Attending Provider Active Start: September 01, 2024 Team Status: Active Member Role Status Dates Dr. Milton Cody MD Primary Care Provider Active Start: September 02, 2024 Dr. Scot Gonzalez DO Emergency Provider Active Start : September 02, 2024 Dr. Paolo Waller DO Referring Provider Active Start: September 02, 2024 Dr. Spencer La DO Admit Provider Active Start: September 02, 2024 Dr. Spencer La DO Other Provider Active Start: September 02, 2024 Dr. Deacon Burgos MD Other Provider Active Sta rt: September 02, 2024 Dr. Jonathan Plata MD Other Provider Active Star t: September 02, 2024 Melani MAGDALENO PA-C Attending Provider Active Start: September 02, 2024 Transfer And Line Up Worker Relationship Specialty Start Date End Date Milton Cody MD [address] [facility] [address] PCP - General Family Practice 07/01/21 Transfer And Line Up Worker Relationship Specialty Start Date End Date Milton Cody MD [address] [facility] [address] PCP - General Family Practice 07/01/21 Transfer And Line Up Worker Relationship Specialty Start Date End Date Milton Cody MD [address] [facility] [place] [address] PCP - General Family Practice 07/01/21 Transfer And Line Up Worker Relationship Specialty Start Date End Date Milton Cody MD [address] [facility] [place] [address] PCP - General Family Practice 07/01/21 Transfer And Line Up Worker Relationship Specialty Start Date End Date Milton Cody MD [address] [facility] [place] [address] PCP - General Family Medicine 07/01/21 Transfer And Line Up Worker Relationship Specialty Start Date End Date Milton Cody MD [address] [facility] [place] [address] PCP - General Family Medicine 07/01/21 Transfer And Line Up Worker Relationship Specialty Start Date End Date Milton Cody MD [address] [facility] [place] [address] PCP - General Family Medicine 07/01/21 Transfer And Line Up Worker Relationship Specialty Start Date End Date Milton Cody MD [address] [facility] [place] [address] PCP - General Family Medicine 07/01/21 Transfer And Line Up Worker Relationship Specialty Start Date End Date Milton Cody MD [address] [facility] [place] [address] PCP - General Family Medicine 07/01/21 Transfer And Line Up Worker Relationship Specialty Start Date End Date Milton Cody MD [address] [place], [place] [address] PCP - General Family Medicine 07/01/21 Transfer And Line Up Worker Relationship Specialty Start Date End Date Milton Cody MD [address] [place] [address] PCP - General Family Medicine 07/01/21 Transfer And Line Up Worker Relationship Specialty Start Date End Date Milton Cody MD [address] [place] [address] PCP - General Family Medicine 07/01/21 Transfer And Line Up Worker Relationship Specialty Start Date End Date Milton Cody MD [address] [place] [address] PCP - General Family Medicine 07/01/21 Transfer And Line Up Worker Relationship Specialty Start Date End Date Milton Cody MD [address] [place] [address] PCP - General Family Medicine 07/01/21 Transfer And Line Up Worker Relationship Specialty Start Date End Date Milton Cody MD [address] [place] [address] PCP - General Family Medicine 07/01/21 Transfer And Line Up Worker Relationship Specialty Start Date End Date Milton Cody MD [address] [place], [place] [address] PCP - General Family Medicine 07/01/21 Transfer And Line Up Worker Relationship Specialty Start Date End Date Milton Cody MD [address] [place], [place] [address] PCP - General Family Medicine 07/01/21 Transfer And Line Up Worker Relationship Specialty Start Date End Date Milton Cody MD [address] [place], [place] [address] PCP - General Family Medicine 07/01/21 Transfer And Line Up Worker Relationship Specialty Start Date End Date Milton Cody MD [address] [place], [place] [address] PCP - General Family Medicine 07/01/21 Transfer And Line Up Worker Relationship Specialty Start Date End Date Milton Cody MD [address] [place] [address] PCP - General Family Medicine 07/01/21 Transfer And Line Up Worker Relationship Specialty Start Date End Date Milton Cody MD [address] [place] [address] PCP - General Family Medicine 07/01/21 Transfer And Line Up Worker Relationship Specialty Start Date End Date Milton Cody MD [address] [place], [place] [address] PCP - General Family Medicine 07/01/21 Crystal Valentine APRN.CORPORATE REPRESENTATIVE [address] [place] [address] [employer] [facility] 06/02/24 Kaylan Rodriguez APRN.CORPORATE REPRESENTATIVE [address] [place] [address] [employer] 06/02/24 Transfer And Line Up Worker Relationship Specialty Start Date End Date Milton Cody MD [address] [place], [place] [address] PCP - General Family Medicine 07/01/21 Crystal Valentine APRN.CORPORATE REPRESENTATIVE [address] [facility] [place] [address] [employer] [facility] 06/02/24 Kaylan Rodriguez APRN.CORPORATE REPRESENTATIVE [address] [facility] [address] [employer] [facility] 06/02/24 Transfer And Line Up Worker Relationship Specialty Start Date End Date Milton Cody MD [address] [facility] [address] PCP - General Family Medicine 07/01/21 Crystal Valentine APRN.CORPORATE REPRESENTATIVE [address] [facility] [place] [address] [employer] 06/02/24 Kaylan Rodriguez ASSISTANT CHIEF OF POLICE.CORPORATE REPRESENTATIVE [address] [facility] [address] [employer] [facility] 06/02/24 Transfer And Line Up Worker Relationship Specialty Start Date End Date Milton Cody MD [address] [facility] [place] [address] PCP - General Family Medicine 07/01/21 Crystal Valentine ASSISTANT CHIEF OF POLICE.CORPORATE REPRESENTATIVE [address] [facility] [place] [address] [employer] [facility] 06/02/24 Kaylan Rodriguez APRN.CORPORATE REPRESENTATIVE [address] [facility] [address] [employer] [facility] 06/02/24 Transfer And Line Up Worker Relationship Specialty Start Date End Date Milton Cody MD [address] [facility] [address] PCP - General Family Medicine 07/01/21 Crystal Valentine APRN.CORPORATE REPRESENTATIVE [address] [facility] [place] [address] [employer] 06/02/24 Kaylan Rodriguez APRN.CORPORATE REPRESENTATIVE [address] [facility] [address] [employer] [facility] 06/02/24 Transfer And Line Up Worker Relationship Specialty Start Date End Date Milton Cody MD [address] [facility] [address] PCP - General Family Medicine 07/01/21 Crystal Valentine APRN.CORPORATE REPRESENTATIVE [address] [facility] [place] [address] [employer] [facility] 06/02/24 Kaylan Rodriguez APRN.CORPORATE REPRESENTATIVE [address] [facility] [address] [employer] 06/02/24 Transfer And Line Up Worker Relationship Specialty Start Date End Date Milton Cody MD [address] [facility] [place] [address] PCP - General Family Medicine 07/01/21 Crystal Valentine APRN.CORPORATE REPRESENTATIVE [address] [facility] [place] [address] [employer] [facility] 06/02/24 Kaylan Rodriguez APRN.CORPORATE REPRESENTATIVE [address] [facility] [address] [employer] [facility] 06/02/24 Team Status: Active Member Role Status Dates Dr. Milton Cody MD Primary Care Provider Active Start: August 29, 2024 Dr. Scot Gonzalez , Emergency Provider Active Start : August 29, 2024 Dr. Paolo Waller DO Referring Provider Active Start: August 29, 2024 Dr. Spencer La DO Admit Provider Active Start: August 29, 2024 Dr. Spencer La DO Attending Provider Active Start: August 29, 2024 Dr. Spencer La DO Other Provider Active Start: August 29, 2024 Team Status: Active Member Role Status Dates Dr. Milton Cody MD Primary Care Provider Active Start: August 29, 2024 Dr. Scot Gonzalez DO Emergency Provider Active Start : August 29, 2024 Dr. Paolo Waller DO Attending Provider Active Start: August 29, 2024 Dr. Paolo Waller , Other Provider Active St art: August 29, 2024 Team Status: Active Member Role Status Dates Dr. Milton Cody MD Primary Care Provider Active Start: August 31, 2024 Dr. Scot Gonzalez DO Emergency Provider Active Start : August 31, 2024 Dr. Spencer La DO Admit Provider Active Start: August 31, 2024 Dr. Spencer La DO Other Provider Active Start: August 31, 2024 Dr. Deacon Burgos MD Other Provider Active Sta rt: August 31, 2024 Dr. Jonathan Plata MD Attending Provider Active Start: August 31, 2024 Dr. Jonathan Plata MD Other Provider Active Star t: August 31, 2024 Team Status: Active Member Role Status Dates Dr. Milton Cody MD Primary Care Provider Active Start: September 01, 2024 Dr. Scot Gonzalez DO Emergency Provider Active Start : September 01, 2024 Dr. Spencer La DO Admit Provider Active Start: September 01, 2024 Dr. Spencer La DO Other Provider Active Start: September 01, 2024 Dr. Deacon Burgos MD Other Provider Active Sta rt: September 01, 2024 Dr. Jonathan Plata MD Attending Provider Active Start: September 01, 2024 Dr. Jonathan Plata MD Other Provider Active Star t: September 01, 2024 Team Status: Active Member Role Status Dates Dr. Milton Cody MD Primary Care Provider Active Start: September 02, 2024 Dr. Scot Gonzalez DO Emergency Provider Active Start : September 02, 2024 Dr. Spencer La DO Admit Provider Active Start: September 02, 2024 Dr. Spencer La DO Attending Provider Active Start: September 02, 2024 Dr. Spencer La DO Other Provider Active Start: September 02, 2024 Dr. Deacon Burgos MD Other Provider Active Sta rt: September 02, 2024 Dr. Jonathan Plata MD Other Provider Active Star t: September 02, 2024 Team Status: Inactive Member Role Status Dates Dr. Milton Cody MD Primary Care Provider Active Start: September 10, 2024 End: September 10, 2024 Dr. Milton Cody MD Referring Provider Active Start: September 10, 2024 End: September 10, 2024 Dr. Deacon Burgos MD Attending Provider Active Start: September 10, 2024 End: September 10, 2024 Team Status: Inactive Member Role Status Dates Dr. Milton Cody MD Primary Care Provider Active Start: September 17, 2024 End: September 17, 2024 Dr. Deacon Burgos MD Attending Provider Active Start: September 17, 2024 End: September 17, 2024 Dr. Deacon Burgos MD Referring Provider Active Start: September 17, 2024 End: September 17, 2024 Team Status: Inactive Member Role Status Dates Dr. Milton Cody MD Primary Care Provider Active Start: September 19, 2024 End: September 19, 2024 Dr. Milton Cody MD Referring Provider Active Start: September 19, 2024 End: September 19, 2024 Dr. Levi Cisneros MD Attending Provider Active Start: September 19, 2024 End: September 19, 2024 Transfer And Line Up Worker Relationship Specialty Start Date End Date Milton Cody MD [address] [place], [place] [id number] PCP - General Family Medicine 07/01/21 Crystal Valentine APRN.CORPORATE REPRESENTATIVE [address] [place], [place] [id number] Loan [employer] Family [facility] 06/02/24 Kaylan Rodriguez APRN.CORPORATE REPRESENTATIVE [address] [place] [address] [facility] 06/02/24 Transfer And Line Up Worker Relationship Specialty Start Date End Date Milton Cody MD [address] [place] [address] PCP - General Family Medicine 07/01/21 Crystal Valentine APRN.CORPORATE REPRESENTATIVE [address] [place] [address] [facility] 06/02/24 Kaylan Rodriguez ASSISTANT CHIEF OF POLICE.CORPORATE REPRESENTATIVE [address] [place] [address] [facility] 06/02/24 Transfer And Line Up Worker Relationship Specialty Start Date End Date Milton Cody MD [address] [place] [address] PCP - General Family Medicine 07/01/21 Crystal Valentine ASSISTANT CHIEF OF POLICE.CORPORATE REPRESENTATIVE [address] [place] [address] [facility] 06/02/24 Kaylan Rodriguez ASSISTANT CHIEF OF POLICE.CORPORATE REPRESENTATIVE [address] [place] [address] [facility] 06/02/24 Transfer And Line Up Worker Relationship Specialty Start Date End Date Milton Cody MD [address] [place] [address] PCP - General Family Medicine 07/01/21 Crystal Valentine, ASSISTANT CHIEF OF POLICE.CORPORATE REPRESENTATIVE [address] [facility], [place] [address] [facility] 06/02/24 Kaylan Rodriguez ASSISTANT CHIEF OF POLICE.CORPORATE REPRESENTATIVE [address] [facility], [place] [address] [facility] 06/02/24 Transfer And Line Up Worker Relationship Specialty Start Date End Date Milton Cody MD [address] [facility], [place] [address] PCP - [facility] 07/01/21 Crystal Valentine, DOT.CORPORATE REPRESENTATIVE [address] [facility], [place] [address] [facility] 06/02/24 Kaylan Rodriguez ASSISTANT CHIEF OF POLICE.CORPORATE REPRESENTATIVE [address] [facility], [place] [address] [facility] 06/02/24 Team Status: Inactive Member Role Status Dates Dr. Milton Cody MD Primary Care Provider Active Start: September 26, 2024 End: September 26, 2024 Dr. Milton Cody MD Referring Provider Active Start: September 26, 2024 End: September 26, 2024 Dr. Deacon Burgos MD Attending Provider Active Start: September 26, 2024 End: September 26, 2024 Team Status: Inactive Member Role Status Dates Dr. Milton Cody MD Primary Care Provider Active Start: November 10, 2024 End: November 10, 2024 Dr. Milton Cody MD Referring Provider Active Start: November 10, 2024 End: November 10, 2024 Dr. Paolo Waller DO Attending Provider Active Start: November 10, 2024 End: November 10, 2024 Team Status: Active Member Role Status Dates Dr. Milton Cody MD Primary Care Provider Active Start: November 10, 2024 Dr. Milton Cody MD Referring Provider Active Start: November 10, 2024 Dr. Paolo Waller DO Attending Provider Active Start: November 10, 2024 Dr. Paool Waller DO Other Provider Active St art: November 10, 2024 Transfer And Line Up Worker Relationship Specialty Start Date End Date Milton Cody MD [address] [facility], [place] [id number] PCP - General Family Medicine 07/01/21 Crystal Valentine, DOT.CORPORATE REPRESENTATIVE [address] [facility], [place] [id number] [facility] 06/02/24 Kaylan Rodriguez ASSISTANT CHIEF OF POLICE.CORPORATE REPRESENTATIVE [address] [facility], [place] [id number] [facility] 06/02/24 Team Status: Inactive Member Role Status Dates Dr. Milton Cody MD Primary Care Provider Active Start: November 27, 2024 End: November 27, 2024 Dr. Paolo Waller DO Attending Provider Active Start: November 27, 2024 End: November 27, 2024 Dr. Paolo Waller DO Referring Provider Active Start: November 27, 2024 End: November 27, 2024 Reason for Visit (unrecogniz ed section and content) Reason Comments Vaginal Problem Reason Comments Yearly Exam Reason Comments Results Reason Comments Follow Up Reason Comments Hypothyroidism Reason Comments Conjunctivitis Reason Comments Eye Problem right eye redness an d matting x 1 day Reason Comments Appointment Reason Comments Ankle Pain Left. Has some swell ing at times. Hurts worse when she is up on it more. Reason Comments Results ultrasound Reason Comments lab orders faxing from Endocrinology Reason Comments Orders Mammo Screen W JAE Reason Comments heart rate changes Gas Reason Comments Palpitations Reason Comments Orders Reason Comments Zio question Reason Comments Zio monitor placement Reason Comments Cough Chest congestion, dr mae x 1 day, exposed to flu Reason Comments Acute Visit Nasal congestion, ri ght eye discharge, fatigue, cough, nausea, chills. 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ter DATE CREATED AUTHOR AUTHOR'S ORGANIZ ATION 11/08/2024 [facility] DATE CREATED AUTHOR AUTHOR'S ORGANIZ ATION 11/22/2024 [facility] DATE CREATED AUTHOR AUTHOR'S ORGANIZ ATION 11/28/2024 [facility] FOR RECORDS PERTAINING TO PATIENTS WHO ARE OR HAVE BEEN ENROLLED IN A CHEMICAL DEPENDENCY/SUBSTANCEABUSE PROGRAM, SOME INFORMATION MAY BE OMITTED. This clinical summary was aggregated from multiple sources. Caution should be exercised in using it in the provision of clinical care. This summary normalizes information from multiple sources, and as a consequence, information in this document may materially change the coding, format and clinical context of patient data. In addition, data may be omitted in some cases. CLINICAL DECISIONS SHOULD BE BASED ON THE PRIMARY CLINICAL RECORDS. [employer] provides no warranty or guarantee of the accuracy or completeness of information in this document.
== END | disposition home or self-care (01) ==
LOC: US 08:01
PROVIDERS: PCP Family Medicine; Referring Provider Internal Medicine Gastroenterology; Visit Provider Internal Medicine Gastroenterology
DX: R10.11 Right upper quadrant pain (principal); Z90.49 Acquired absence of other specified parts of digestive tract
CPT/HCPCS: 76705

== ENCOUNTER → 2025-01-15 | Outpatient (CLI) | payer MEDICAID, SELFPAY ==
--- NOTE | 2025-01-15 15:33 | MRI_ITS ---
PROCEDURE: MRI ABD WITH AND W/O CONTRAST 01/15/2025 REASON FOR EXAM: LIVER LESION SEEN ON US TECHNIQUE: MRI ABD WITH AND W/O CONTRAST Multiplanar and multisequence images were obtained. CONTRAST: Clariscan VOLUME: 17 mL COMPARISON: December 03, 2024, August 29, 2024 FINDINGS: Liver: Mild, diffuse fatty infiltration of the liver. In the anterior segment right lobe there is a 12 mm simple cyst. The area of concern seen by ultrasound measured up to 2.9 cm, and does not have a correlate on MRI and is favored to represent focal normal tissue in a background of fatty liver. Biliary: Gallbladder is contracted around multiple stones. Pancreas: Normal Spleen: Normal Adrenals: Normal Kidneys: Normal Peritoneum / Retroperitoneum: No free fluid or mass. Lymph Nodes: None appear enlarged Major Vessels: Normal caliber Bones: Minimal disc space narrowing upper lumbar spine. Otherwise unremarkable. MRI/MRI Abd WITH and W/O Contrast IMPRESSION: 1. Diffuse fatty liver is mild. Benign cyst right lobe liver. The area of co ncern by ultrasound does not have a correlate and is favored to represent focal normal tissue in a background of fatty liver. Reading Location: [id number]
== END | disposition home or self-care (01) ==
LOC: OPMRI 15:27
PROVIDERS: PCP Family Medicine; Referring Provider Internal Medicine Gastroenterology; Visit Provider Internal Medicine Gastroenterology
DX: K76.9 Liver disease, unspecified (principal)
CPT/HCPCS: 74183; A9575; A4216

== ENCOUNTER 2025-03-24 09:10 | Emergency (ER) | payer MEDICAID, SELFPAY ==
[2025-03-24 09:10] VITALS: BP 150/104; PULSE 96; RESP 14; TEMP 36.5; O2SAT 98; BMI 36.8
--- NOTE | 2025-03-24 09:23 | US_ITS ---
PROCEDURE: GALLBLADDER 03/24/2025 REASON FOR EXAM: PAIN TECHNIQUE: Procedure Code: USGB Modality: US Procedure: GALLBLADDER COMPARISON: January 15, 2025 MRI FINDINGS: Liver: The liver measures 16.5 cm. The liver shows increased echogenicity consistent with fatty infiltration or liver disease. There is a 1.2 cm cyst in the right hepatic lobe. There is a solid hypoechoic mass in the right hepatic lobe measuring 2.7 x 2.7 x 2.4 cm. This appears new compared to the prior MRI. Gallbladder: Shows multiple stones with the largest measuring 1.2 cm and appears contracted. Gallbladder wall is not thickened. There is no pericholecystic fluid. Lamar's sign = negative. Common bile duct: 4.2 mm . Pancreas: the visualized portion of the pancreas is normal. Other: There is no free fluid. There is a branch of the portal vein which shows internal echoes with no visible flow and may represent thrombus. US/Gallbladder IMPRESSION: The liver shows increased echogenicity consistent with fatty infiltration or li koki disease. There is a 1.2 cm cyst in the right hepatic lobe. There is a solid hypoechoic mass in the right hepatic lobe measuring 2.7 x 2.7 x 2.4 cm. This appears new compared to the prior MRI. CT with three-phase technique or MRI with and without contrast is recomme nded for further characterization. Cholelithiasis There is a branch of the portal vein which shows internal echoes with no visibl e flow and may represent thrombus. Critical results were discussed with Dr. Gallegos by Dr. Jordan at the time o f dictation. Reading Location: [id number]
--- NOTE | 2025-03-24 09:23 | EKG12_ITS ---
Test Reason : ANXIETY Blood Pressure : */* mmHG Vent. Rate : 82 BPM Atrial Rate : 82 BPM P-R Int : 148 ms QRS Dur : 86 ms QT Int : 358 ms P-R-T Axes : 67 41 44 degrees QTcB Int : 418 ms Normal sinus rhythm with sinus arrhythmia Normal ECG Confirmed by SOHA HUNT, YESI ([id number]), primer expeditor and drier PENNY RM ([id number]) on 03/25/2025 9:08:14 AM Referred By: Confirmed By: YESI HOYOS MD
--- NOTE | 2025-03-24 09:32 | EX.ED.DYSGE1 ---
HPI History of Present Illness Chief Complaint: Abd Pain Narrative Narrative: Chief complaint and HPI: 49-year-old female with past medical history of Brugada's with history of ICD, cholecystitis with choledocholithiasis with history of laparoscopic subtotal cholecystectomy, ERCP with stone extraction and CBD stenting, and liver biopsy on 08/31/[address] Burgos and Dr. Waller presents for evaluation of epigastric abdominal pain. Onset of symptoms Sunday and intermittent. Associated symptom is nausea and increased burping. States she called Dr. Waller's office who recommended her coming to the ER for ultrasound. She denies any fever, chills, shortness of breath, chest pain, vomiting, diarrhea, constipation. Review of systems: See HPI Medications: As listed on the chart Allergies: As listed on the chart PFSH: Per chart Vital signs: As listed on the chart. Reviewed. Physical exam: Gen: A&O x3, NAD Head: Normocephalic, atraumatic Eyes: No sclera icterus, conjunctiva clear ENT: Moist mucous membranes Neck: Trachea midline CV: RRR, no murmurs Resp: Lungs CTA BL, no w/r/c GI: Abd soft, non-distended, mild tenderness to palpation in the epigastric, no r/r/g Musc: Full ROM, no deformity Skin: Warm, dry Neuro: Alert, oriented, grossly intact Psych: Cooperative, appropriate mood and affect [facility] Medical History Wears contact lenses Wears glasses Thyroid disease Anemia Seizures Non-smoker History of stress test History of Holter monitoring Cardiology follow-up encounter PCOS (polycystic ovarian syndrome) Migraine headache Home Medications ?Medication ?Instructions ?Recorded ?Last Taken ?Type thyroid (pork) 60 mg tablet 60 mg PO DAILY 08/23/20 08/29/24 History ([place] Thyroid) levothyroxine 25 mcg tablet 25 mcg PO SUTUWETHSA 08/29/24 11/10/24 History ursodiol 250 mg tablet 250 mg PO QDAY #30 tabs 02/18/25 Unknown Rx Allergy/AdvReac Type Severity Reaction Status Date / Time Penicillins Allergy Intermediate Hives Verified 03/24/25 09:11 chlorhexidine Allergy Mild Rash Verified 03/24/25 09:11 Family History Other Cancer Diabetes Heart disease Hypertension Surgical History S/P cholecystectomy History of lobectomy of thyroid Social History household members: spouse housing: house Smoking Status: Never smoker EXAM Physical Exam Const Vital Signs: 03/24/25 09:10 03/24/25 11:10 Temperature 97.7 F L Temperature Source Temporal Pulse Rate 96 64 Respiratory Rate 14 16 Blood Pressure 150/104 H 128/87 H Blood Pressure Mean 119 100 Pulse Ox 98 98 Oxygen Delivery Method Room Air Room Air MDM MDM MDM Narrative Medical decision making narrative: 49-year-old female with past medical history of Brugada's with history of ICD, cholecystitis with choledocholithiasis with history of laparoscopic subtotal cholecystectomy, ERCP with stone extraction and CBD stenting, and liver biopsy on 08/31/[address] Burgos and Dr. Waller presents for evaluation of epigastric abdominal pain. Onset of symptoms Sunday and intermittent. Associated symptom is nausea and increased burping. States she called Dr. Waller's office who recommended her coming to the ER for ultrasound. On presentation, patient no acute distress. Differential diagnosis includes but is not limited to GERD, gastritis, cholecystitis, pancreatitis, choledocholithiasis, suspect less likely ACS. Zofran and Pepcid ordered. Laboratory workup ordered including ultrasound. CBC without leukocytosis or anemia. Troponin unremarkable. Lipase unremarkable. Patient has mild transaminitis with an AST of 54 and an ALT of 43. These have been mildly elevated in the past. Although current labs were normal. Ultrasound of the gallbladder shows fatty liver. There is a 1.2 cm cyst in the right hepatic lobe. Solid hypoechoic mass in the right hepatic lobe. Recommended CT with three-phase technique or MRI for further characterization. Cholelithiasis. There is a branch of the portal vein which shows internal echoes with no visible flow may represent thrombus. This was personally given to me by the radiologist over the telephone. CT abdomen pelvis ordered. CT abdomen pelvis shows surgical clips noted in the gallbladder fossa suggestive of previous cholecystectomy. Diffuse pneumobilia as well as air in the common bile duct. Fatty liver without a discrete lesion. Simple cyst. Colonic diverticulosis. Possible fibroid without adnexal cyst. Given there is no mention of the portal vein thrombosis I did personally reach out to the radiologist and we had a discussion over the phone. No thrombus within the portal venous system. There is a remnant of the gallbladder. On reevaluation, patient is still burping however pain is minimal. Dr. Waller was consulted and patient was discussed. Pneumobilia is chronic. Follow-up in his office outpatient. Patient was updated on the results and the plan. She confirmed understanding. I did offer placing her on Pepcid for possible gastritis/acid reflux. She declined. Recommend following up with PCP for symptoms as well as GI. Recommended following up with PCP to have repeat liver function tests and ultrasound of the pelvis. She confirmed understanding. Return precautions explained. Patient able to discharge home. EKG: Interpreted by me/EM physician: EKG shows normal sinus rhythm with arrhythmia. No acute ischemic changes. Heart rate 82 Impression: 1. Epigastric abdominal pain 2. History of subtotal cholecystectomy and choledocholithiasis 3. Mild transaminitis 4. Suspected uterine fibroid without adnexal cyst Lab Data Labs: Laboratory Results - last 24 hr 03/24/25 03/24/25 09:35 12:30 WBC 8.4 RBC 4.74 Hgb 13.5 Hct 39.5 MCV 83.3 MCH 28.5 MCHC 34.2 RDW Std Deviation 37.2 RDW Coeff of Fabio 12.3 Plt Count 224 MPV 9.9 Immature Gran % (Auto) 0.400 Neut % (Auto) 74.4 H Lymph % (Auto) 18.8 L Early % (Auto) 4.2 Eos % (Auto) 1.8 Baso % (Auto) 0.4 Absolute Neuts (auto) 6.3 Absolute Lymphs (auto) 1.58 Nucleated RBC % 0 PT 12.4 INR 0.9 APTT 29.0 Sodium 139 Potassium 3.8 Chloride 103 Carbon Dioxide 24.9 Anion Gap 10 BUN 9 Creatinine 0.66 L Estim Creat Clear Calc 105.93 Est GFR (MDRD) Non-Af 106 BUN/Creatinine Ratio 14.1 Glucose 107 H Calcium 9.0 Total Bilirubin 0.90 AST 54 H ALT 43 H Alkaline Phosphatase 90 Troponin T High Sens < 6 Total Protein 6.6 Albumin 4.0 Globulin 2.7 Albumin/Globulin Ratio 1.5 Lipase 22 Radiography Diagnostic Testing: Clinical Impression(s) from Imaging Studies Gallbladder Ultrasound 03/24/25 09:23 IMPRESSION: The liver shows increased echogenicity consistent with fatty infiltration or liver disease. There is a 1.2 cm cyst in the right hepatic lobe. There is a solid hypoechoic mass in the right hepatic lobe measuring 2.7 x 2.7 x 2.4 cm. This appears new compared to the prior MRI. CT with three-phase technique or MRI with and without contrast is recommended for further characterization. Cholelithiasis There is a branch of the portal vein which shows internal echoes with no visible flow and may represent thrombus. Critical results were discussed with Dr. Gallegos by Dr. Jordan at the time of dictation. Reading Location: [facility] Abdomen/Pelvis CT 03/24/25 11:40 IMPRESSION: Surgical clips noted in the gallbladder fossa suggests previous cholecystectomy, there is diffuse pneumobilia as well as air within the common bile duct Fatty liver without a discrete lesion, there are simple hepatic cysts, no specific follow-up needed. No free intraperitoneal fluid, air, or suspicious adenopathy, normal appendix visualized Scattered colonic diverticulosis Uterus is present and contains fluid within the endometrium and likely a low-density fibroid. There is a 2 cm right adnexal region cyst. Consider dedicated pelvic ultrasound for further evaluation Reading Location: [facility] Discharge Plan Triage Chief Complaint: Abd Pain ED Provider: Seven Franz Dx/Rx/DC Orders Clinical Impression: Epigastric abdominal pain Instructions: ED Epigastric Pain Uncertain Cause Prescriptions: No Action thyroid (pork) [[place] Thyroid] 60 mg tablet 60 mg PO DAILY levothyroxine 25 mcg tablet 25 mcg PO SUTUWETHSA Patient Comments: [NO ORIGINAL SIG] ursodiol 250 mg tablet 250 mg PO QDAY Qty: 30 3RF Primary Care Provider: Milton Marcus Referrals: Paolo Waller DO [Med Staff - Active Staff, Gastroenterology] - 3-5 Days Milton Marcus MD [Primary Care Provider, Medical] Activity Restrictions/Additional Instructions: Follow-up with primary care physician and Dr. Waller. You have mild elevated liver enzymes here in the emergency department. Make sure you have these repeated outpatient with your primary care physician. Return back to ED symptoms change or worsen. Recommended staying away from coffee, spicy foods, fatty foods as these can increase acid reflux. Your CT abdomen pelvis shows possible fibroid in the uterus with a right adnexal cyst. You need to follow-up with this further outpatient with an ultrasound with primary care physician. Print Language: Upper Sorbian Disposition Disposition: Home, Self Care
[2025-03-24] MEDS: Famotidine 200 MG/20 ML MDV 20 MG in 0.9% Normal Saline (Pres. free 8 ML 300 MG IV (09:44)
[2025-03-24 09:49] LABS: Hematocrit 39.5 % (37-47); Hemoglobin 13.5 g/dL (12.0-15.0); Immature Granulocytes Count 0.030 X10^3/uL (0.0-0.0); Mean Corp Hgb Conc 34.2 g/dL (32-36); Mean Corpuscular Volume 83.3 fL (81-99); Mean Platelet Vol. 9.9 fl (6.2-12.0); NRBC Flagged by Analyzer 0 % (0-5); Platelet Count 224 K/mm3 (150-450); RBC Distribution Width CV 12.3 % (11.6-14.6); RBC Distribution Width SD 37.2 fl (35.1-43.9); Red Blood Count 4.74 M/mm3 (4.2-5.4); White Blood Count 8.4 K/mm3 (4.4-11.0)
[2025-03-24 10:11] LABS: Troponin T High Sensitivity < 6 ng/L (<=14)
[2025-03-24 10:14] LABS: Lipase 22 U/L (13-75)
[2025-03-24 10:44] LABS: AST(SGOT) 54 U/L (<=31); Alanine Aminotransfer ALT/SGPT 43 U/L (<=34); Albumin, Serum 4.0 g/dL (3.5-5.0); Alkaline Phosphatase 90 U/L (35-104); Anion Gap 10 (5-15); BUN 9 mg/dL (4-19); BUN/Creat Ratio 14.1 RATIO (10-20); Calcium,Total 9.0 mg/dL (7.6-11.0); Carbon Dioxide 24.9 mmol/L (21.0-32.0); Chloride 103 mmol/L (98-108); Estimated Creatinine Clearance 105.93 ml/min (50-250); Globulin 2.7 g/dL (2.2-4.2); Glucose 107 mg/dL (70-99); Potassium 3.8 mmol/L (3.3-5.1)
[2025-03-24 11:10] VITALS: BP 128/87; PULSE 64; RESP 16; O2SAT 98
[2025-03-24] MEDS: 0.9% Normal Saline (1000mL) 1,000 ML 1000 ML IV (11:37)
--- NOTE | 2025-03-24 11:40 | CT_ITS ---
PROCEDURE: ABDOMEN/PELVIS W IV CONT ONLY 03/24/2025 REASON FOR EXAM: US SHOWING LIVER MASS AND PORTAL VEIN CLOT TECHNIQUE: Procedure Code: [id number] Modality: CT Procedure: ABDOMEN/PELVIS W IV CONT ONLY Coronal and Sagittal reconstruction series were provided. CONTRAST: Isovue 370 VOLUME: 100 mL One or more dose reduction techniques were used (e.g., Automated exposure control, adjustment of the mA and/or kV according to patient size, use of iterative reconstruction technique. RADIATION DOSE SUMMARY: CTDlvol: 36.17 mGy DLP: 1255.27 mGycm COMPARISON: None FINDINGS: Lung bases: Mild dependent atelectasis Liver: Fatty infiltration of the liver is noted without a discrete lesion, there are scattered simple hepatic cysts and pneumobilia. Gallbladder: Surgical clips in the gallbladder fossa suggests previous cholecystectomy. In addition to pneumobilia there is evidence of air within the common bile duct heading down towards the head of the pancreas Spleen: Normal size. Pancreas: Normal size without evidence of mass surrounding inflammation or ductal dilation. Adrenals: Unremarkable Kidneys: No obstructive uropathy or suspicious solid renal lesion Bladder: Incompletely distended Reproductive Organs: Uterus is present, there is a low-density likely fibroid present along with fluid within the endometrial canal. Dedicated pelvic ultrasound may be of benefit. There is a 2 cm right adnexal region cyst. Bowel: No evidence of obstruction, retained stool noted in the colon with scattered diverticula but no CT evidence of acute diverticulitis. Appendix: Normal appendix seen on coronal recon images 75 through 81 Lymph nodes: No suspicious mesenteric or retroperitoneal adenopathy Vasculature: The abdominal aorta and IVC are normal. Peritoneum / Retroperitoneum: No free air or suspicious adenopathy Bones: Unremarkable CT/Abdomen/Pelvis W IV Cont ONLY IMPRESSION: Surgical clips noted in the gallbladder fossa suggests previous cholecystectomy , there is diffuse pneumobilia as well as air within the common bile duct Fatty liver without a discrete lesion, there are simple hepatic cysts, no speci fic follow-up needed. No free intraperitoneal fluid, air, or suspicious adenopathy, normal appendix v isualized Scattered colonic diverticulosis Uterus is present and contains fluid within the endometrium and likely a low-de nsity fibroid. There is a 2 cm right adnexal region cyst. Consider dedicated pelvic ultrasound for further evaluation Reading Location: [id number]
[2025-03-24 12:45] LABS: Prothrombin Time (Protime)PT. 12.4 SECONDS (11.7-14.9)
[2025-03-24 12:46] LABS: Partial Thromboplast Time 29.0 Seconds (24.1-36.2)
[2025-03-24 13:19] VITALS: BP 146/98; PULSE 63; RESP 15; TEMP 36.6; O2SAT 99
== END 2025-03-24 13:20 | disposition home or self-care (01) ==
PROVIDERS: Emergency Provider Surgery; PCP Family Medicine; Visit Provider Surgery
DX: R10.13 Epigastric pain (principal); K80.20 Calculus of gallbladder without cholecystitis without obstruction; I81 Portal vein thrombosis; K57.30 Diverticulosis of large intestine without perforation or abscess without bleeding; K76.0 Fatty (change of) liver, not elsewhere classified; Z90.49 Acquired absence of other specified parts of digestive tract; K83.5 Biliary cyst; R74.01 Elevation of levels of liver transaminase levels
CPT/HCPCS: 74177; 76705; 80053; 83690; 84484; 85025; 85610; 85730; 93005; 96361; 96365; 96375; 99283; Q9967; A4216; J2405